=== PATIENT | female | born 1950 | race Caucasian/White ===

== ENCOUNTER 2020-11-02 20:31 | Observation (INO) | payer MEDICARE, SELFPAY ==
[2020-11-02 20:31] VITALS: BP 194/110; PULSE 104; RESP 18; TEMP 36.7; O2SAT 94; BMI 28.3
--- NOTE | 2020-11-02 20:36 | EKG12_ITS ---
Test Reason : CP Blood Pressure : / mmHG Vent. Rate : 102 BPM Atrial Rate : 102 BPM P-R Int : 174 ms QRS Dur : 098 ms QT Int : 370 ms P-R-T Axes : 028 023 116 degrees QTc Int : [address] & T wave abnormality, consider lateral ischemia Abnormal ECG Confirmed by ROSIE BROOKS, MAYRA ([id number]), news assignment editor XIAO HURT ([id number]) on 11/03/2020 1:04:59 PM Referred By: AVELINO Confirmed By:MAYRA VELEZ MD
--- NOTE | 2020-11-02 20:55 | RAD_ITS ---
INDICATION: chest pain EXAMINATION/TECHNIQUE: X-RAY - XR Chest 1 View COMPARISON: 05/17/2014. FINDINGS: The lungs are clear. Tortuous and calcified thoracic aorta. The heart is not enlarged. No pleural effusion or pneumothorax. No acute osseous abnormalities. RAD/Chest 1 View (Portable) IMPRESSION: No acute radiographic abnormalities. Electronically Signed: Bebeto Garcia MD at 21:14 EDT Tel , Service support ,
[2020-11-02 21:19] LABS: Absolute Lymphocyte Count 1.64 X10^3/uL (0.83-4.51); Absolute Neutrophil Count 2.4 X10^3/uL (2.0-7.7); Basophil# 0.02 X10^3/uL; Basophil% 0.4 % (0-1); Eosinophil# 0.53 X10^3/uL; Eosinophils% 10.5 % (0-5); Hematocrit 32.4 % (37-47); Hemoglobin 9.9 g/dL (12.0-15.0); Lymphocyte # 1.64 X10^3/ul (0.83-4.51); Lymphocyte % 32.6 % (19-41); Mean Corp Hgb Conc 30.6 g/dL (32-36); Mean Corpuscular Hgb 26.8 pg (27.0-32.0); Mean Corpuscular Volume 87.6 fL (81-99); Mean Platelet Vol. 12.6 fl (6.2-12.0); Monocyte# 0.48 X10^3/uL; Monocyte% 9.5 % (0-10); NRBC Flagged by Analyzer 0 % (0-5); Neutrophil # 2.35 X10^3/uL (2.7-7.7); Neutrophil % 46.8 % (47-70); Platelet Count 213 K/mm3 (150-450); RBC Distribution Width CV 17.2 % (11.6-14.6); RBC Distribution Width SD 55.7 fl (35.1-43.9)
[2020-11-02 21:23] VITALS: O2SAT 99
[2020-11-02] MEDS: Aspirin 81 MG TAB.CHEW 324 MG PO (21:29)
[2020-11-02] MEDS: Ondansetron 4 MG/2 ML Vial IV (21:30)
[2020-11-02] MEDS: Morphine 4 MG/ML Syringe 2 MG IV (21:31)
[2020-11-02 21:34] LABS: Anion Gap 6 (5-15); BUN 26 mg/dL (7-18); BUN/Creat Ratio 23.6 RATIO (10-20); Calcium,Total 8.5 mg/dL (8.5-10.1); Chloride 108 mmol/L (98-107); EST Glomerular Filtration Rate 52 mL/min (>60); Est Glom Filt Rate - Afr Amer 63 mL/min (>60); Estimated Creatinine Clearance 33.21 ml/min; Glucose 119 mg/dL (74-106); Potassium 3.9 mmol/L (3.5-5.1); Sodium Level 140 mmol/L (136-145); Troponin-I HS 20.1 pg/mL (3.0-53.7)
[2020-11-02 21:47] VITALS: BP 112/55; PULSE 84; RESP 17; O2SAT 97
[2020-11-02 22:12] VITALS: BP 117/61; PULSE 83; RESP 20; O2SAT 98
[2020-11-02] MEDS: Morphine 4 MG/ML Syringe IV (22:43)
[2020-11-02 23:14] VITALS: BP 135/61; PULSE 63; RESP 18; O2SAT 100
--- NOTE | 2020-11-02 23:15 | EDS_ITS ---
HPI History of Present Illness Chief Complaint: Chest Pain Informant: patient Onset/Context/Timing Onset: Month(s) (Worse today) Activity at onset: gradual Quality: Positive for Heaviness and Pressure Current Severity: Severe Maximum Severity: Severe Worsened By: Nothing Associated Symptoms: Positive for Nausea and - (Dizziness) Narrative Narrative: Patient present secondary to chest pain. Symptoms have been ongoing for the past couple months intermittently. Today was worse. She does report shortness of breath with radiation of pain down her left arm. She gets nauseated and dizzy as well. Patient denies known cardiac history but does have risk factors including hypertension, high cholesterol. [facility] Medical History GERD (gastroesophageal reflux disease) History of back pain HLD (hyperlipidemia) HTN (hypertension) Pinched vertebral nerve Scoliosis Home Medications carisoprodol 350 mg PO BID 11/02/20 [History Last Taken Unknown] chlorthalidone 25 mg PO DAILY 11/02/20 [History Last Taken Unknown] labetalol 100 mg PO BID 11/02/20 [History Last Taken Unknown] pantoprazole 40 mg PO DAILY 11/02/20 [History Last Taken Unknown] pravastatin 80 mg PO DAILY 11/02/20 [History Last Taken Unknown] tramadol 50 mg PO TID PRN 11/02/20 [History Last Taken Unknown] valsartan 320 mg PO DAILY 11/02/20 [History Last Taken Unknown] Allergy/AdvReac Type Severity Reaction Status Date / Time Penicillins Allergy Unknown Verified 11/02/20 20:35 Sulfa (Sulfonamide Allergy Rash Verified 11/02/20 20:35 Antibiotics) Surgical History History of cholecystectomy History of kidney removal Social History Smoking Status: Never smoker ROS ROS ED Constitutional Constitutional ED: Denies chills or fever(s) Eyes Eyes: Denies change in vision ENT ENT ED: Denies sore throat Cardiovascular Cardiovascular: Reports chest pain Respiratory/Chest Respiratory/Chest: Reports dyspnea; Denies cough Gastrointestinal Gastrointestinal: Reports nausea; Denies abdominal pain, diarrhea or vomiting Genitourinary Genitourinary ED: Denies dysuria Integumentary Denies rash Neurologic Neurologic: Denies headache(s) or weakness Psychiatric Psychiatric: Denies anxiety or depression Endocrine Endocrinology: Denies polydipsia or polyuria Allergic/Immunologic Allergic/Immunologic ED: Denies urticaria EXAM Physical Exam Const Vital Signs: 11/02/20 20:31 11/02/20 21:03 11/02/20 21:11 Temperature 98.1 F Temperature Source Temporal Pulse Rate 104 H Respiratory Rate 18 Respiratory Effort Short of Breath Respiratory Pattern Tachypnea Blood Pressure 194/110 H Blood Pressure Mean 138 Pulse Ox 94 Oxygen Delivery Method Room Air Room Air Oxygen Flow Rate (L/min) 2 11/02/20 21:23 11/02/20 21:47 11/02/20 22:12 Temperature Temperature Source Pulse Rate 84 83 Respiratory Rate 17 20 H Respiratory Effort Respiratory Pattern Blood Pressure 112/55 L 117/61 Blood Pressure Mean 74 79 Pulse Ox 99 97 98 Oxygen Delivery Method Nasal Cannula Nasal Cannula Nasal Cannula Oxygen Flow Rate (L/min) 2 2 11/02/20 23:14 Temperature Temperature Source Pulse Rate 63 Respiratory Rate 18 Respiratory Effort Respiratory Pattern Blood Pressure 135/61 H Blood Pressure Mean 85 Pulse Ox 100 Oxygen Delivery Method Room Air Oxygen Flow Rate (L/min) Positive well nourished and well developed General Appearance ED: well developed and other Appears uncomfortable. HEENT Reports normocephalic and head/scalp atraumatic Eyes PERRL and EOMs intact bilaterally Neck supple Chest Wall inspection of chest normal Chest Narrative: Mild tenderness with palpation of the chest, but patient states this does not recreate the pain that she is feeling. Resp normal respiratory effort and clear to auscultation bilaterally Cardio regular rate and regular rhythm GI normal to inspection, nondistended, normoactive bowel sounds Palpation: soft Extremity normal to inspection General Extremety ED: Negative for edema General Extremity: Negative for edema Neuro oriented x3 and no sensory deficits noted Sensorium / Orientation: alert Motor Exam: strength 5/5 throughout Psych mental status grossly normal Skin no rashes or lesions noted Heart Score History: Highly Suspicious ECG: Nonspecific Repolarization Age: >/= 65 years Risk Factors: 1 or 2 Risk Factors Troponin: </= Normal Limit Score: 6 MDM MDM MDM Narrative Medical decision making narrative: Patient was given aspirin on arrival. She was given morphine for pain. Labs, EKG, chest x-ray obtained. Lab Data Attestation: I reviewed the patient's lab results. Labs: Laboratory Results - last 24 hr 11/02/20 11/02/20 21:02 21:02 WBC 5.0 RBC 3.70 L Hgb 9.9 L Hct 32.4 L MCV 87.6 MCH 26.8 L MCHC 30.6 L RDW Std Deviation 55.7 H RDW Coeff of Douglas 17.2 H Plt Count 213 MPV 12.6 H Immature Gran % (Auto) 0.200 Neut % (Auto) 46.8 L Lymph % (Auto) 32.6 [place] % (Auto) 9.5 Eos % (Auto) 10.5 H Baso % (Auto) 0.4 Absolute Neuts (auto) 2.4 Absolute Lymphs (auto) 1.64 Nucleated RBC % 0 Sodium 140 Potassium 3.9 Chloride 108 H Carbon Dioxide 26.0 Anion Gap 6 BUN 26 H Creatinine 1.10 H Estim Creat Clear Calc 33.21 Est GFR (MDRD) Af Amer 63 Est GFR (MDRD) Non-Af 52 L BUN/Creatinine Ratio 23.6 H Glucose 119 H Calcium 8.5 Troponin I High Sens 20.1 Radiography Chest X-Ray - ED: 1 View, Read by ED Physician and Chronic Changes Diagnostic Testing: Radiology Impression Chest X-Ray 11/02/20 20:55 IMPRESSION: No acute radiographic abnormalities. Electronically Signed: Bebeto Garcia MD at 21:14 EDT Tel , Service support , EKG Initial EKG: Attestation: I personally reviewed and interpreted this EKG as follows: Interpretation: Sinus Tachycardia (Sinus tach at 102. Mild ST depression in the lateral leads.) Treatment and Re-Evaluation Comments:: Patient was given 2 doses of morphine for pain. On repeat evaluation she does report improvement but not complete resolution of her symptoms. Patient does have risk factors and a concerning story. In spite of the negative initial troponin I do feel she should be observed for cycling of enzymes and possible stress test. I will speak with the hospitalist. Discharge Plan Triage Chief Complaint: Chest Pain ED Provider: Peggy Grimes Dx/Rx/DC Orders Clinical Impression: Chest pain Prescriptions: No Action carisoprodol 350 mg tablet 350 mg PO BID RF: 0 pravastatin 40 mg Tablet 80 mg PO DAILY RF: 0 chlorthalidone 25 mg Tablet 25 mg PO DAILY RF: 0 tramadol 50 mg tablet 50 mg PO TID PRN (Reason: Pain) RF: 0 pantoprazole 40 mg Tablet,Delayed Release (Dr/Ec) 40 mg PO DAILY RF: 0 valsartan 320 mg Tablet 320 mg PO DAILY RF: 0 labetalol 100 mg Tablet 100 mg PO BID RF: 0 Disposition Disposition: Acute Care Hospital [facility]
--- NOTE | 2020-11-02 23:37 | PCM.HP.STD ---
HPI - General General Date of Admission: 11/02/20 Date of Service: 11/02/20 Chief Complaint: Chest pain HPI Narrative The patient is a 70 y/o F w/ PMHx: HTN, HLD, Chronic pain syndrome with chronic pinched vertebral nerve with scoliosis, Chronic normocytic anemia, GERD who presents to the [facility] ED on 11/02/20 with history of onset chest pain, midsternal, described as a heaviness and a pressure with radiation to the left upper extremity with associated nauseous and dizziness prompting eventual ED presentation. She does report this has been intermittently going on over the last several months but does not necessarily correlate with any increased activity. Patient does report concurrent dyspnea with these episodes. She notes that the pain when it does occur is rated approximately 7 out of 10 in severity. She currently notes the pain is resolving but her chest is still sore and is somewhat reproducible during ED evaluation. Work-up in the ED included T 98.1, heart rate initially 104 with repeat 83, BP initially 194/110 with repeat 117/61, respiratory rate 20, 98% on 2 L nasal cannula, CBC with WC 5.0, hemoglobin 9.9, MCV 87.6, platelet 213 without marked shift, BMP with chloride 108, BUN/creatinine 26/1.10, glucose 119, troponin 20.1, chest x-ray with no acute cardiopulmonary findings, EKG with tachycardia with mild ST depression in the lateral leads. In the ED patient ministered aspirin 324 mg p.o. x1, morphine 2 mg IV x1 as well as Zofran. [facility] Medical History (Updated 11/03/20 @ 00:[address] Mandi Nguyen MD) GERD (gastroesophageal reflux disease) History of back pain HLD (hyperlipidemia) HTN (hypertension) Pinched vertebral nerve Scoliosis Home Medications carisoprodol 350 mg PO BID 11/02/20 [History Last Taken Unknown] chlorthalidone 25 mg PO DAILY 11/02/20 [History Last Taken Unknown] labetalol 100 mg PO BID 11/02/20 [History Last Taken Unknown] pantoprazole 40 mg PO DAILY 11/02/20 [History Last Taken Unknown] pravastatin 80 mg PO DAILY 11/02/20 [History Last Taken Unknown] tramadol 50 mg PO TID PRN 11/02/20 [History Last Taken Unknown] valsartan 320 mg PO DAILY 11/02/20 [History Last Taken Unknown] Allergy/AdvReac Type Severity Reaction Status Date / Time Penicillins Allergy Unknown Verified 11/02/20 20:35 Sulfa (Sulfonamide Allergy Rash Verified 11/02/20 20:35 Antibiotics) Family History (Updated 11/03/20 @ 00:[address] Mandi Nguyen MD) Mother Alcoholism other (Patient denies any marked paternal family hx including HD, DM, CA. She notes no other hx in her mother aside alcoholism.) Surgical History (Updated 11/03/20 @ 00:[address] Mandi Nguyen MD) History of cholecystectomy S/P appendectomy Social History (Updated 11/03/20 @ 00:[address] Mandi Nguyen MD) household members: spouse Smoking Status: Never smoker alcohol intake: never substance use type: does not use ROS ROS Narrative Admission Review of Systems: CONSTITUTIONAL: No weight loss, fever, chills, + weakness or fatigue. HEENT: Eyes: No visual loss, blurred vision, double vision or yellow sclerae. Ears, Nose, Throat: No hearing loss, sneezing, congestion, runny nose or sore throat. SKIN: No rash or itching, lesions, wounds. CARDIOVASCULAR: + chest pain, chest pressure or chest discomfort, No palpitations, edema, orthopnea, syncopal events. RESPIRATORY: + shortness of breath, No cough or sputum, wheezing, hemoptysis. GASTROINTESTINAL: No anorexia, nausea, vomiting or diarrhea, abdominal pain, melena, BRBPR. GENITOURINARY: No dysuria, frequency, urgency or retention. NEUROLOGICAL: No headache, dizziness, syncope, paralysis, ataxia, numbness or tingling in the extremities, focal weakness, change in bowel or bladder control, seizure. MUSCULOSKELETAL: + muscle, back pain, joint pain or stiffness. HEMATOLOGIC: + anemia, bleeding or bruising. LYMPHATICS: No enlarged nodes. No history of splenectomy. PSYCHIATRIC: No history of depression or anxiety. ENDOCRINOLOGIC: No reports of sweating, cold or heat intolerance. No polyuria or polydipsia. ALLERGIES: No history of asthma, hives, eczema or rhinitis. Vital Signs Vital Signs Vital Signs: 11/02/20 20:31 11/02/20 21:03 11/02/20 21:11 Temperature 98.1 F Temperature Source Temporal Pulse Rate 104 H Respiratory Rate 18 Respiratory Effort Short of Breath Respiratory Pattern Tachypnea Blood Pressure 194/110 H Blood Pressure Mean 138 Pulse Ox 94 Oxygen Delivery Method Room Air Room Air Oxygen Flow Rate (L/min) 2 11/02/20 21:23 11/02/20 21:47 11/02/20 22:12 Temperature Temperature Source Pulse Rate 84 83 Respiratory Rate 17 20 H Respiratory Effort Respiratory Pattern Blood Pressure 112/55 L 117/61 Blood Pressure Mean 74 79 Pulse Ox 99 97 98 Oxygen Delivery Method Nasal Cannula Nasal Cannula Nasal Cannula Oxygen Flow Rate (L/min) 2 2 11/02/20 23:14 Temperature Temperature Source Pulse Rate 63 Respiratory Rate 18 Respiratory Effort Respiratory Pattern Blood Pressure 135/61 H Blood Pressure Mean 85 Pulse Ox 100 Oxygen Delivery Method Room Air Oxygen Flow Rate (L/min) Weight Weight: 145 lb Body Mass Index (BMI) 28.3 Physical Exam Narrative Physical Examination: General: Awake, alert, oriented x 3 and cooperative, seated upright in the ED bed in no apparent distress, notes chest discomfort is improving, complaining of back pain. Skin: Normal color, normal turgor, no icterus, no cyanosis. HEENT: AT/NC, EOMI, PERRLA, MMM, no carotid bruits or JVD noted. Lungs: Clear to auscultation bilaterally, moderate effort, no rales, ronchi or wheezing. Heart: Regular rate and rhythm; no gallop, rub audible. Abdomen: Soft, NTTP, ND, normal BS, no HSM. Extremities: No cyanosis, clubbing, or edema. Neurological: Patient awake, alert, oriented as noted, cognitive function intact; pupils equally reactive to light and accommodation, cranial nerves II-XII grossly normal, moving all 4 extremities, no focal deficits, strength mildly moderately global decrease secondary to acute presentation and underlying comorbidities with chronic back pain. Psychiatric: Affect appears fatigued otherwise normal, no acute evidence of depressive or anxiety feelings. Results Lab / Micro Data Result Diagrams: 11/02/20 21:02 11/02/20 21:02 Labs: Laboratory Results - last 24 hr 11/02/20 11/02/20 21:02 21:02 WBC 5.0 RBC 3.70 L Hgb 9.9 L Hct 32.4 L MCV 87.6 MCH 26.8 L MCHC 30.6 L RDW Std Deviation 55.7 H RDW Coeff of [place] 17.2 H Plt Count 213 MPV 12.6 H Immature Gran % (Auto) 0.200 Neut % (Auto) 46.8 L Lymph % (Auto) 32.6 [place] % (Auto) 9.5 Eos % (Auto) 10.5 H Baso % (Auto) 0.4 Absolute Neuts (auto) 2.4 Absolute Lymphs (auto) 1.64 Nucleated RBC % 0 Sodium 140 Potassium 3.9 Chloride 108 H Carbon Dioxide 26.0 Anion Gap 6 BUN 26 H Creatinine 1.10 H Estim Creat Clear Calc 33.21 Est GFR (MDRD) Af Amer 63 Est GFR (MDRD) Non-Af 52 L BUN/Creatinine Ratio 23.6 H Glucose 119 H Calcium 8.5 Troponin I High Sens 20.1 Radiology Impression Chest X-Ray 11/02/20 20:55 IMPRESSION: No acute radiographic abnormalities. Electronically Signed: Bebeto Garcia MD at 21:14 EDT Tel , Service support , Assessment & Plan Assessment/Plan (1) Chest pain: QUALIFIERS: Chest pain type: unspecified Qualified Code(s): R07.9 - Chest pain, unspecified PLAN: The patient is a 70 y/o F w/ PMHx: HTN, HLD, Chronic pain syndrome with chronic pinched vertebral nerve with scoliosis, Chronic normocytic anemia, GERD who presents to the [facility] ED on 11/02/20 with history of onset chest pain, midsternal, described as a heaviness and a pressure with radiation to the left upper extremity with associated nauseous and dizziness prompting eventual ED presentation. She does report this has been intermittently going on over the last several months, 1. Chest Pain: EKG in ED sinus tachycardia with ST depression in lateral leads, CXR w/ no acute cardiopulmonary findings, initial trop high-sensitivity 20.1. Will admit to PCU, place on a monitored bed to assure no acute myocardial infarction with serial cardiac enzymes and EKGs. Magnesium level requested. FLP in AM. If repeat serial enzymes and EKGs with no concerning findings will pursue a.m. cardiac stress testing. ASA, NG, morphine. 2. Hypertension: Continue home regimen including valsartan, labetalol, chlorthalidone with hold parameters as needed, PRN hydralazine. 3. Hyperlipidemia: Continue home statin regimen. AM FLP. 4. Chronic pain syndrome: Patient with chronic pinched vertebral nerve with scoliosis with chronic back pain, we will continue patient carisoprodol regimen. Encourage frequent positional changes. 5. GERD: We will continue patient on PPI. 6. Chronic anemia, normocytic: Admission hemoglobin 9.9, last noted 05/17/2014 11.7, MCV mid range, will obtain iron panel, ferritin, guaiac, vitamin B12 and folic acid. 7. DVT prophylaxis: SCDs, Lovenox. Charges/Coding Visit Charges OBSV E&M: [id number] Initial observation care L3
[2020-11-03] VITALS (24 sets, daily range): BP systolic 100–189; BP diastolic 42–93; PULSE 79–92; RESP 17–21; TEMP 36.4–37; O2SAT 90–99; BMI 29.5
--- NOTE | 2020-11-03 00:38 | EKG12_ITS ---
Test Reason : CP ADMISSION Blood Pressure : / mmHG Vent. Rate : 082 BPM Atrial Rate : 082 BPM P-R Int : 188 ms QRS Dur : 102 ms QT Int : 432 ms P-R-T Axes : 016 042 095 degrees QTc Int : 504 ms Sinus rhythm with occasional Premature ventricular complexes ST & T wave abnormality, consider lateral ischemia Prolonged QT Abnormal ECG Confirmed by RENO BROOKS, PALOMA ([id number]), continuity editor EDUARD TURNER ([id number]) on 11/08/2020 2:05:36 PM Referred By: SPEEDY Confirmed By:PALOMA BOJORQUEZ MD
[2020-11-03] MEDS: 0.9% Normal Saline 1,000 ML 100 ML IV ×2 (00:59→13:00)
[2020-11-03 01:35] LABS: Troponin-I HS 37.1 pg/mL (3.0-53.7)
[2020-11-03] MEDS: Nitroglycerin (INPATIENT USE) 0.4 MG TAB.SUBL SL ×3 (03:45→03:56)
--- NOTE | 2020-11-03 03:54 | NURSING ---
c/o chesy pain that radiates to back and left arm. nitro series given
[2020-11-03] MEDS: oxyCODONE 5 MG Tablet PO ×3 (03:59→16:05)
[2020-11-03 05:04] LABS: Troponin-I HS 40.8 pg/mL (3.0-53.7)
[2020-11-03] MEDS: Losartan Potassium 100 MG Tablet PO (06:26)
[2020-11-03] MEDS: Aspirin E.C. 81 MG Tablet PO (06:26)
[2020-11-03 08:06] LABS: Absolute Lymphocyte Count 1.22 X10^3/uL (0.83-4.51); Basophil# 0.02 X10^3/uL; Basophil% 0.4 % (0-1); Eosinophil# 0.46 X10^3/uL; Eosinophils% 8.8 % (0-5); Hematocrit 28.6 % (37-47); Hemoglobin 8.6 g/dL (12.0-15.0); Lymphocyte # 1.22 X10^3/ul (0.83-4.51); Lymphocyte % 23.5 % (19-41); Mean Corp Hgb Conc 30.1 g/dL (32-36); Mean Corpuscular Hgb 26.6 pg (27.0-32.0); Mean Corpuscular Volume 88.5 fL (81-99); Mean Platelet Vol. 12.5 fl (6.2-12.0); Monocyte# 0.48 X10^3/uL; Monocyte% 9.2 % (0-10); NRBC Flagged by Analyzer 0 % (0-5); Neutrophil # 3.01 X10^3/uL (2.7-7.7); Neutrophil % 57.9 % (47-70); Platelet Count 187 K/mm3 (150-450); RBC Distribution Width CV 17.7 % (11.6-14.6); RBC Distribution Width SD 57.7 fl (35.1-43.9); Red Blood Count 3.23 M/mm3 (4.2-5.4); White Blood Count 5.2 K/mm3 (4.4-11.0)
[2020-11-03 08:43] LABS: ALB/GLOB Ratio 1.4 RATIO (0.9-2.4); AST(SGOT) 19 U/L (15-37); Alanine Aminotransfer ALT/SGPT 16 U/L (13-56); Alkaline Phosphatase 97 U/L (45-117); Anion Gap 2 (5-15); BUN 20 mg/dL (7-18); BUN/Creat Ratio 23.5 RATIO (10-20); Calcium,Total 7.7 mg/dL (8.5-10.1); Chloride 112 mmol/L (98-107); Cholesterol 124 mg/dL (200); Creatinine, Serum 0.85 mg/dL (0.55-1.02); EST Glomerular Filtration Rate 70 mL/min (>60); Est Glom Filt Rate - Afr Amer 84 mL/min (>60); Estimated Creatinine Clearance 42.97 ml/min; Ferritin 6 ng/mL (8-252); Globulin 2.1 g/dL (2.2-4.2); Glucose 131 mg/dL (74-106); High Density Lipoprotein 45 mg/dL; Iron 36 ug/dL (50-170); Iron Binding Capacity,Total 313 ug/dL (250-450); PERCENT IRON SATURATION 11.5 % (15.0-55.0); Potassium 4.5 mmol/L (3.5-5.1); Protein, Total 5.1 g/dL (6.4-8.2); Sodium Level 141 mmol/L (136-145); Triglycerides 229 mg/dL; Troponin-I HS 38.8 pg/mL (3.0-53.7); Very Low Density Lipoprotein 46 mg/dL (5-40)
[2020-11-03 09:32] LABS: Vitamin B12 188 pg/mL (211-911)
[2020-11-03] MEDS: Labetalol 100 MG Tablet PO (11:02)
[2020-11-03] MEDS: 0.9% Saline Lock 10 ML Syringe IV ×2 (11:02→19:43)
[2020-11-03] MEDS: Chlorthalidone 50 MG Tablet 25 MG PO (11:02)
[2020-11-03] MEDS: Pantoprazole Sodium 40 MG Tablet PO (11:02)
--- NOTE | 2020-11-03 12:46 | STRESSREP ---
Stress Test Report Pharmacologic myocardial perfusion stress test. Indication; 70-year-old patient with history of CAD has a prior cardiac catheterization 2009 showed diffuse nonobstructive RCA as well as mild luminal milligrams in the LAD This presentation with symptoms of chest pain and she had some change in the EKG in the inferolateral leads with a clinical diagnosis of unstable angina Series of high sensitive troponins have been negative. Stress protocol: Resting EKG demonstrates. Normal sinus rhythm. 0.4 mg of regadenoson was infused per usual protocol followed by rapid intravenous saline flush injection continuous EKG monitoring was performed. The maximum heart rate attained was 107 bpm which was 72% of maximum predicted heart . Stress EKG showed, ST depression noted in the inferolateral lead at rest, significant ST?T depression in the inferolateral leads, significant change from the resting EKG, with maximum heart rate of 107bpm. Arrhythmia: No arrhythmia demonstrated Symptoms: Patient had no symptoms of chest pain Blood pressure at rest 160/80 mmHg blood pressure at the end of stress: 160/80 mmHg Myocardial perfusion protocol. [12 mCi ]of Technetium 99m Sestamibi was injected at rest. [ 0.4 mg ]of Regadenoson was infused per usual protocol peak infusion[33.8 mCi ]of Technetium 99m sestamibi was injected. Stress images were obtained stress and rest images were reconstructed and compared in the short axis vertical and horizontal long axis. Gated images were also obtained Perfusion SPECT analysis: Review of the images demonstrate, attenuation artifact in the inferior region with diminished lateral tracer uptake Consistent with small area of inferior?lateral myocardial ischemia. Gated SPECT analysis: The gated ejection fraction is 61% wall motion showed normal LV systolic function. Conclusion: Abnormal Lexiscan sestamibi myocardial perfusion study as described with evidence of small area of inferolateral myocardial ischemia with preserved LV systolic function. Monica Conrad MD,FACC,[facility]
--- NOTE | 2020-11-03 13:19 | NURSING ---
Report called to Jennifer FRY in [employer] laboratory technician
--- NOTE | 2020-11-03 14:03 | CASEMGMT ---
According to the [facility] website, the following are in-network tertiary facilities: [facility], [place], [facility], [facility], [facility], [facility], and . Shanna FRY CM
--- NOTE | 2020-11-03 15:10 | PRO.PCM_ITS ---
Procedure Report Date of Procedure: 11/03/20 Procedure performed; 1. Moderate sedation 2. Left heart catheterization 3. Selective coronary angiography 4. Measurement of LVEDP/left ventriculogram 5. Placement of Perclose to close the right common femoral artery arteriotomy site 6. Placement of TR band to close the right radial artery arteriotomy site. Consent; Risk and benefit of the procedure explained in detail to the patient she elected to proceed informed consent obtained. Preprocedure diagnosis; 70-year-old patient with known history of CAD, has a cardiac catheterization here at [facility] in 2008 which she had nonobstructive atherosclerosis of the LAD as well as the RCA This presentation she presented with symptoms of chest pain described as retrosternal typical of angina has been infrequent Based on her clinical presentation she was evaluated here in the hospital with EKG as well as series of high sensitive troponin which were negative and subsequently she underwent further evaluation with Lexiscan sestamibi myocardial perfusion study which is abnormal clearly showed evidence of inferolateral ST depression with Lexiscan and evidence of inferolateral reversible myocardial ischemia with preserved LV systolic function. Based on this finding she was offered cardiac catheterization to delineate coronary anatomy and to discuss further plan. Diagnostic catheter used; 1. 5 Australian sheath in the right common femoral artery 2. 5 Australian JL 4 catheter 3. 5 Australian JR4 catheter 4. 5 Australian pigtail catheter. Procedure in detail; Patient brought to the [facility] in fasting state, right groin right radial artery area prepped and draped in the usual sterile fashion. We will proceed with the 5 Australian sheath placed in the right radial artery patient was given lidocaine infiltrated in the right groin as well she was given Versed and fentanyl for moderate anesthesia The new proceed with the diagnostic catheter engaged left coronary artery without difficulty following this multiple views of the left carotid system obtained including VENEZUELAN, ESTEBAN cranial and caudal views. Following this catheter exchange) JR4 advanced ascending aorta cannulated the right coronary ostium multiple views of the record system were obtained. Following this catheter exchanged for 5 Australian pigtail catheter placed in the right ventricle the ventricular end-diastolic pressure measured as well as the ventricle gram was obtained following this all angiographic views were studied Findings hemodynamic LV systolic function was normal Ejection fraction in the range of around 60 to 65% There is no systolic gradient across aortic valve. There is no mitral regurgitation noted LVEDP measuring around 18 mmHg Coronary angiography findings; Left main calcified with extension of calcification into the LAD and the ramus intermedius Left main is normal angiographically trifurcating into LAD, ramus intermedius and the left circumflex. The left anterior descending artery had a focal stenosis in the midportion at the site of the second diagonal/septal branch, which is around 50-60% focal stenosis. With a MIKO-3 flow in the LAD. Left circumflex large vessel with ostial left circumflex subtotal 99%. OM1 branch is large with no significant atherosclerosis. RCA large ostial RCA, with no significant atherosclerosis at the ostium, proximal RCA had 80% stenosis focal lesion Mid RCA had diffuse nonobstructive atherosclerosis of around 20-30%, bifurcation of the posterolateral and RPDA had around 30 to 40% stenosis. Conclusion and recommendations; This patient has multivessel CAD with very good distal targets My colleague Dr. Costello, discussed with the surgeon at [facility] and patient will be transferred to evaluate for coronary artery bypass surgery. Monica Conrad MD,FACC,[facility]. This patient has significant three-vessel disease with high-grade lesion subtotal critical ostial LAD, proximal ramus intermedius around 50% sick
--- NOTE | 2020-11-03 17:14 | NURSING ---
Called theodore FRY at [facility] for report
--- NOTE | 2020-11-03 19:33 | DS.PCM_ITS ---
Providers Date of Admission: 11/02/20 Date of Discharge: 11/03/20 Primary Care Physician: Dr. Elroy Wellington MD Reason For Visit: CHEST PAIN Diagnosis Discharge Diagnosis (1) Chest pain: Status: Acute Code(s): R07.9 - Chest pain, unspecified Qualifiers: Chest pain type: unspecified Qualified Code(s): R07.9 - Chest pain, unspecified Plan: Final diagnosis #1 unstable angina #2 multivessel occlusive coronary artery disease #3 essential hypertension #4 iron deficiency anemia-etiology unclear #5 melena Medications at Discharge Home Medications carisoprodol 350 mg PO BID 11/02/20 chlorthalidone 25 mg PO DAILY 11/02/20 labetalol 100 mg PO BID 11/02/20 pantoprazole 40 mg PO DAILY 11/02/20 pravastatin 80 mg PO DAILY 11/02/20 tramadol 50 mg PO TID PRN 11/02/20 valsartan 320 mg PO DAILY 11/02/20 aspirin 81 mg PO DAILY@0800 #1 tab 11/03/20 enoxaparin 40 mg SUBCUT DAILY #1 ml 11/03/20 nitroglycerin 0.4 mg SUBLINGUAL Q5M PRN #1 tab 11/03/20 Hospital Course Operations None Procedures Cardiac catheterization and Nuclear stress test Summary of Care Provided Minutes Spent on Discharge: 31 Hospital Course: This 70-year-old white female was seen in the emergency room at [facility] with a chief complaint of precordial chest pain. This chest pain has been intermittent over the last couple of months. Patient also complained of shortness of breath with radiation pain down her left arm. Work-up in the emergency room included an EKG which showed no evidence of ischemic changes, patient's hemoglobin was low at 9.9, white blood cell count was normal, patient's creatinine was slightly elevated at 1.1, patient's tropon in was within normal limits. Patient's chest x-ray showed no evidence of acute disease. Patient was placed in observation status on PCU, cardiac enzymes were cycled and these remain normal. Patient underwent a nuclear stress test that indicated reversible ischemia, she then was seen by cardiology who performed a cardiac catheterization which showed multivessel occlusive coronary artery disease. It was felt that the patient should be transferred to an acute care hospital for further care and bypass grafting. Patient's stool was Hemoccult positive. On 11/03/2020, patient was seen and examined: On examination she appeared in good health and spirits, she does not appear to be in any distress. Vital signs as documented. Skin warm and dry and without overt rashes. Neck without JVD, thyroid appears normal, trachea is midline, neck is supple. Lungs clear, normal air movement was noted. Heart exam notable for regular rhythm, normal sounds and absence of murmurs, rubs or gallops. Abdomen unremarkable and without evidence of organomegaly, masses, or abdominal aortic enlargement, bowel sounds are present in all 4 quadrants, no abdominal tenderness was noted. Extremities nonedematous, no cyanosis was noted, no clubbing was noted. Neuro: Cranial nerves II through XII are grossly intact, no focal motor deficits were noted, sensation to light touch and pinprick is intact, motor exam 5/5 throughout. Psych: Patient is alert and oriented x3, she does not appear anxious or depressed, she does not appear agitated. I talked at length with the patient and her about her medical care prior to transfer to an acute care hospital for further care. Patient was stable for transfer on 11/03/2020. Weight / BMI Weight Weight: 68.7 kg Body Mass Index (BMI) 29.5 ABG / Lab / Microbiology Data Result Diagrams: 11/03/20 07:45 11/03/20 07:45 Laboratory: Laboratory Results - last 24 hr 11/02/20 11/02/20 11/02/20 21:02 21:02 21:02 WBC 5.0 RBC 3.70 L Hgb 9.9 L Hct 32.4 L MCV 87.6 MCH 26.8 L MCHC 30.6 L RDW Std Deviation 55.7 H RDW Coeff of Douglas 17.2 H Plt Count 213 MPV 12.6 H Immature Gran % (Auto) 0.200 Neut % (Auto) 46.8 L Lymph % (Auto) 32.6 [place] % (Auto) 9.5 Eos % (Auto) 10.5 H Baso % (Auto) 0.4 Absolute Neuts (auto) 2.4 Absolute Lymphs (auto) 1.64 Nucleated RBC % 0 Sodium 140 Potassium 3.9 Chloride 108 H Carbon Dioxide 26.0 Anion Gap 6 BUN 26 H Creatinine 1.10 H Estim Creat Clear Calc 33.21 Est GFR (MDRD) Af Amer 63 Est GFR (MDRD) Non-Af 52 L BUN/Creatinine Ratio 23.6 H Glucose 119 H Calcium 8.5 Magnesium 2.0 Iron TIBC Iron Saturation Ferritin Total Bilirubin AST ALT Alkaline Phosphatase Troponin I High Sens 20.1 Total Protein Albumin Globulin Albumin/Globulin Ratio Triglycerides Cholesterol LDL Cholesterol VLDL Cholesterol HDL Cholesterol Vitamin B12 Folate 11/03/20 11/03/20 11/03/20 01:12 03:40 07:45 WBC 5.2 RBC 3.23 L Hgb 8.6 L Hct 28.6 L MCV 88.5 MCH 26.6 L MCHC 30.1 L RDW Std Deviation 57.7 H RDW Coeff of Douglas 17.7 H Plt Count 187 MPV 12.5 H Immature Gran % (Auto) 0.200 Neut % (Auto) 57.9 Lymph % (Auto) 23.5 [place] % (Auto) 9.2 Eos % (Auto) 8.8 H Baso % (Auto) 0.4 Absolute Neuts (auto) 3.0 Absolute Lymphs (auto) 1.22 Nucleated RBC % 0 Sodium Potassium Chloride Carbon Dioxide Anion Gap BUN Creatinine Estim Creat Clear Calc Est GFR (MDRD) Af Amer Est GFR (MDRD) Non-Af BUN/Creatinine Ratio Glucose Calcium Magnesium Iron TIBC Iron Saturation Ferritin Total Bilirubin AST ALT Alkaline Phosphatase Troponin I High Sens 37.1 40.8 Total Protein Albumin Globulin Albumin/Globulin Ratio Triglycerides Cholesterol LDL Cholesterol VLDL Cholesterol HDL Cholesterol Vitamin B12 Folate 11/03/20 11/03/20 07:45 07:45 WBC RBC Hgb Hct MCV MCH MCHC RDW Std Deviation RDW Coeff of Douglas Plt Count MPV Immature Gran % (Auto) Neut % (Auto) Lymph % (Auto) [place] % (Auto) Eos % (Auto) Baso % (Auto) Absolute Neuts (auto) Absolute Lymphs (auto) Nucleated RBC % Sodium 141 Potassium 4.5 Chloride 112 H Carbon Dioxide 27.0 Anion Gap 2 L BUN 20 H Creatinine 0.85 Estim Creat Clear Calc 42.97 Est GFR (MDRD) Af Amer 84 Est GFR (MDRD) Non-Af 70 BUN/Creatinine Ratio 23.5 H Glucose 131 H Calcium 7.7 L Magnesium Iron 36 L TIBC 313 Iron Saturation 11.5 L Ferritin 6 L Total Bilirubin 0.20 AST 19 ALT 16 Alkaline Phosphatase 97 Troponin I High Sens 38.8 Total Protein 5.1 L Albumin 3.0 L Globulin 2.1 L Albumin/Globulin Ratio 1.4 Triglycerides 229 H Cholesterol 124 LDL Cholesterol 33 VLDL Cholesterol 46 H HDL Cholesterol 45 Vitamin B12 188 L Folate 10.70 Microbiology: Microbiology 11/03/20 11:07 Stool Occult Blood (BETTY) - Final Stool Occult Blood Positive Microbiology 11/03/20 11:07 Stool Stool Occult Blood (BETTY) - Final Occult Blood Positive Radiography Diagnostic Testing: Radiology Impression Chest X-Ray 11/02/20 20:55 IMPRESSION: No acute radiographic abnormalities. Electronically Signed: Bebeto Garcia MD at 21:14 EDT Tel , Service support , Meaningful Use Info Meaningful Use Diagnoses (Choose all that apply): None applicable Discharge Plan Admission Admit Date/Time: 11/02/20 23:43 Primary Reason for Your Visit: unstable angina Attending Provider: Ke Mccullough Primary Care Provider: Elroy Wellington Instructions Patient Instructions: ED Chest Pain, Noncardiac Discharge Orders/Prescriptions Prescriptions: New aspirin 81 mg Tablet,Delayed Release (Dr/Ec) 81 mg PO DAILY@0800 Qty: 1 RF: 0 nitroglycerin 0.4 mg Tablet, Sublingual 0.4 mg sublingual Q5M PRN (Reason: Cardiac/Chest Pain) Qty: 1 RF: 0 enoxaparin 40 mg/0.4 mL Syringe 40 mg subcut DAILY Qty: 1 RF: 0 Continued carisoprodol 350 mg tablet 350 mg PO BID RF: 0 pravastatin 40 mg Tablet 80 mg PO DAILY RF: 0 chlorthalidone 25 mg Tablet 25 mg PO DAILY RF: 0 tramadol 50 mg tablet 50 mg PO TID PRN (Reason: Pain) RF: 0 pantoprazole 40 mg Tablet,Delayed Release (Dr/Ec) 40 mg PO DAILY RF: 0 valsartan 320 mg Tablet 320 mg PO DAILY RF: 0 labetalol 100 mg Tablet 100 mg PO BID RF: 0 Referrals / Follow Up: Elroy Wellington MD [Primary Care Provider] - Disposition Disposition (needs filled in before D/C Order can be placed): Acute Care Hosp ital Charges/Coding Visit Charges OBSV E&M: 97518 Observation care discharge
[2020-11-03] MEDS: Morphine 2 MG/ML Syringe IV (19:43)
== END 2020-11-03 20:36 | disposition short-term general hospital (02) ==
LOC: ED 23:38 → PCU 23:54
PROVIDERS: Admitting Provider Family Medicine; Emergency Provider Emergency Medicine; PCP Family Medicine; Visit Provider Internal Medicine
DX: I25.110 Atherosclerotic heart disease of native coronary artery with unstable angina pectoris (principal); I10 Essential (primary) hypertension; D50.9 Iron deficiency anemia, unspecified; K92.1 Melena; K21.9 Gastro-esophageal reflux disease without esophagitis; E78.5 Hyperlipidemia, unspecified; M41.9 Scoliosis, unspecified; G89.4 Chronic pain syndrome; G58.8 Other specified mononeuropathies; Z79.899 Other long term (current) drug therapy; Z79.82 Long term (current) use of aspirin
CPT/HCPCS: 36415; 71045; 78452; 80048; 80053; 80061; 82274; 82607; 82728; 82746; 83540; 83550; 83735; 84484; 85025; 93005; 93017; 93458; 96361; 96374; 96375; 96376; 99152; 99153; 99218; 99251; 99285; A9500; J7030; Q9967; A4216; C1760; C1769; C1894; G0378; G0463; J2405; J2785

== ENCOUNTER 2020-12-15 13:36 | Observation (INO) | payer MEDICARE, SELFPAY ==
[2020-11-03 00:28] VITALS: BMI 29.5
[2020-12-15] VITALS (10 sets, daily range): BP systolic 142–175; BP diastolic 81–120; PULSE 80–110; RESP 20–35; TEMP 36.4–36.7; O2SAT 96–99; BMI 26.5; BMI 26.4
--- NOTE | 2020-12-15 14:01 | EKG12_ITS ---
Test Reason : SOB Blood Pressure : / mmHG Vent. Rate : 103 BPM Atrial Rate : 103 BPM P-R Int : 186 ms QRS Dur : 098 ms QT Int : 332 ms P-R-T Axes : 031 037 188 degrees QTc Int : [address] & T wave abnormality, consider inferolateral ischemia Abnormal ECG Confirmed by ROSIE BROOKS, MAYRA ([id number]), web editor XIAO HURT ([id number]) on 12/19/2020 9:46:52 AM Referred By: JUN/NIYA Confirmed By:MAYRA VELEZ MD
--- NOTE | 2020-12-15 14:17 | EX.ED.DYSGE1 ---
[facility] <Dr. Gato Velazco DO - Last Filed: 12/16/20 07:01> History of Present Illness Chief Complaint: Shortness of Breath Informant: patient Narrative Narrative: Patient is a 70-year-old female with a past medical history of CAD with bypass who presents to the emergency department for shortness of breath. She states that her blood pressures have been elevated over the past few days. Her shortness of breath initially started 3 days ago. She denies any chest pain associated with this. Tricia mild cough at her baseline but has not had any fever/chills. She denies any significant leg swelling or calf pain. Her surgery was 6 weeks ago. She denies any abdominal pain or nausea/vomiting. No change in moving bowels. No back pain. She denies a smoking history. [facility] <Dr. Gato Velazco DO - Last Filed: 12/16/20 07:01> [facility] Medical History GERD (gastroesophageal reflux disease) History of back pain HLD (hyperlipidemia) HTN (hypertension) Pinched vertebral nerve Scoliosis Home Medications chlorthalidone 25 mg PO DAILY 11/02/20 [History Last Taken 12/15/20] labetalol 200 mg PO BID 11/02/20 [History Last Taken 12/15/20 08:00] pantoprazole 40 mg PO DAILY 11/02/20 [History Last Taken 12/15/20] tramadol 100 mg PO TID PRN 11/02/20 [History Last Taken 12/15/20] aspirin 81 mg PO DAILY@0800 #1 tab 11/03/20 [Rx Last Taken 12/15/20] furosemide 40 mg PO DAILY PRN PRN 12/15/20 [History Last Taken Unknown] rosuvastatin 20 mg PO QHS 12/15/20 [History Last Taken 12/14/20] valsartan 320 mg PO DAILY 12/15/20 [History Last Taken 12/15/20] Allergy/AdvReac Type Severity Reaction Status Date / Time Penicillins Allergy Unknown Verified 12/15/20 13:37 Sulfa (Sulfonamide Allergy Rash Verified 12/15/20 13:37 Antibiotics) lorazepam [From Ativan] AdvReac I went Verified 12/15/20 18:36 crazy Family History (Updated 12/15/20 @ 18:05 by Rochelle Lugo NP-Gen) Mother Alcoholism Father Hypertension Brother Diabetes Sister Diabetes Surgical History History of cholecystectomy S/P appendectomy S/P CABG x 5 Social History household members: spouse Smoking Status: Never smoker alcohol intake: never substance use type: does not use ROS <Dr. Gato Velazco DO - Last Filed: 12/16/20 07:01> ROS ED Constitutional Constitutional ED: Denies chills or fever(s) Eyes Eyes: Denies change in vision ENT ENT ED: Denies epistaxis or rhinorrhea Cardiovascular Cardiovascular: Denies chest pain or palpitations Respiratory/Chest Respiratory/Chest: Reports dyspnea; Denies sputum Gastrointestinal Gastrointestinal: Denies abdominal pain, diarrhea, nausea or vomiting Genitourinary Genitourinary ED: Denies dysuria, hematuria or urinary frequency Musculoskeletal Musculoskeletal: Denies back pain or neck pain Integumentary Denies rash Neurologic Neurologic: Denies dizziness, headache(s) or weakness EXAM <Dr. aGto Velazco DO - Last Filed: 12/16/20 07:01> Physical Exam Const Vital Signs: 12/15/20 13:37 12/15/20 14:28 12/15/20 14:30 Temperature 97.5 F L Temperature Source Temporal Pulse Rate 106 H 106 H Respiratory Rate 24 H 34 H Respiratory Effort Short of Breath Respiratory Depth Deep Respiratory Pattern Tachypnea Blood Pressure 160/107 H 154/107 H Blood Pressure Mean 124 122 Pulse Ox 99 98 Oxygen Delivery Method Room Air Room Air Room Air 12/15/20 15:18 12/15/20 17:03 Temperature Temperature Source Pulse Rate 103 H 102 H Respiratory Rate 28 H 20 H Respiratory Effort Respiratory Depth Respiratory Pattern Blood Pressure 171/102 H 169/103 H Blood Pressure Mean 125 125 Pulse Ox 96 96 Oxygen Delivery Method Room Air Room Air Positive well nourished and well developed General Appearance ED: well developed and NAD HEENT Reports normocephalic and head/scalp atraumatic Eyes PERRL and EOMs intact bilaterally Neck supple Chest Wall inspection of chest normal Resp clear to auscultation bilaterally Resp Narrative: Mildly tachypneic Auscultation: Negative for rales, rhonchi or wheezes Cardio regular rhythm and no murmurs Rate: tachycardic GI normal to inspection, nondistended, normoactive bowel sounds and non-tender Palpation: soft; Negative for guarding or rebound tenderness present Extremity normal to inspection General Extremety ED: Negative for edema or tenderness General Extremity: Negative for edema Neuro Sensorium / Orientation: alert Motor Exam: strength 5/5 throughout Psych mental status grossly normal Skin no rashes or lesions noted <Dr. Peggy Grimes MD - Last Filed: 12/15/20 17:34> Physical Exam Const Vital Signs: 12/15/20 13:37 12/15/20 14:28 12/15/20 14:30 Temperature 97.5 F L Temperature Source Temporal Pulse Rate 106 H 106 H Respiratory Rate 24 H 34 H Respiratory Effort Short of Breath Respiratory Depth Deep Respiratory Pattern Tachypnea Blood Pressure 160/107 H 154/107 H Blood Pressure Mean 124 122 Pulse Ox 99 98 Oxygen Delivery Method Room Air Room Air Room Air 12/15/20 15:18 12/15/20 17:03 Temperature Temperature Source Pulse Rate 103 H 102 H Respiratory Rate 28 H 20 H Respiratory Effort Respiratory Depth Respiratory Pattern Blood Pressure 171/102 H 169/103 H Blood Pressure Mean 125 125 Pulse Ox 96 96 Oxygen Delivery Method Room Air Room Air MDM <Dr. Gato Velazco DO - Last Filed: 12/16/20 07:01> [facility] MDM Narrative Medical decision making narrative: Patient presents to the [facility] department for shortness of breath. She states that her blood pressure has been elevated at home up to the 170s systolic. She did have a recent decrease in her labetalol from 200-100 but this was prior to her CABG. On arrival to the [facility] department she is satting 99% on room air but is tachypneic and borderline tachycardic. Will check EKG, chest x-ray and basic lab work. Patient's lab work did not reveal any significant acute abnormality. Her troponin is within normal limits. BNP is only mildly elevated. On chest x-ray she has a right hemidiaphragm elevation which was not seen previously. This could be related to her previous surgery. Given the fact she remains very tachypneic and with a recent surgery CT angio is being performed to evaluate for pulmonary embolism. Patient otherwise has remained saturating well on room air. She is siged out due to end of shift pending CTA results. Disposition based on [facility]. Lab Data Labs: Laboratory Results - last 24 hr 12/15/20 12/15/20 12/15/20 14:25 14:25 14:25 WBC 8.2 RBC 4.68 Hgb 12.3 Hct 38.9 MCV 83.1 MCH 26.3 L MCHC 31.6 L RDW Std Deviation 46.5 H RDW Coeff of Douglas 15.5 H Plt Count 393 MPV 11.9 Immature Gran % (Auto) 0.400 Neut % (Auto) 78.4 H Lymph % (Auto) 13.4 L Jay % (Auto) 6.9 Eos % (Auto) 0.5 Baso % (Auto) 0.4 Absolute Neuts (auto) 6.5 Absolute Lymphs (auto) 1.10 Nucleated RBC % 0 Sodium 138 Potassium 3.5 Chloride 106 Carbon Dioxide 24.0 Anion Gap 8 BUN 13 Creatinine 0.62 Estim Creat Clear Calc 36.53 Est GFR (MDRD) Af Amer 122 Est GFR (MDRD) Non-Af 100 BUN/Creatinine Ratio 21.0 H Glucose 118 H Calcium 9.4 Magnesium 2.0 Total Bilirubin Direct Bilirubin AST ALT Alkaline Phosphatase Troponin I High Sens 29.9 B-Natriuretic Peptide 148.0 H Total Protein Albumin Globulin 12/15/20 14:25 WBC RBC Hgb Hct MCV MCH MCHC RDW Std Deviation RDW Coeff of Douglas Plt Count MPV Immature Gran % (Auto) Neut % (Auto) Lymph % (Auto) Jay % (Auto) Eos % (Auto) Baso % (Auto) Absolute Neuts (auto) Absolute Lymphs (auto) Nucleated RBC % Sodium Potassium Chloride Carbon Dioxide Anion Gap BUN Creatinine Estim Creat Clear Calc Est GFR (MDRD) Af Amer Est GFR (MDRD) Non-Af BUN/Creatinine Ratio Glucose Calcium Magnesium Total Bilirubin 0.40 Direct Bilirubin 0.13 AST 21 ALT 21 Alkaline Phosphatase 166 H Troponin I High Sens B-Natriuretic Peptide Total Protein 7.4 Albumin 3.9 Globulin 3.5 Radiography Diagnostic Testing: Radiology Impression Chest X-Ray 12/15/20 14:20 IMPRESSION: Elevation of the right hemidiaphragm with right basilar atelectasis. Electronically Signed: Milan Pino MD at 14:42 EDT , Service support , Chest CTA 12/15/20 15:04 IMPRESSION: 1. Right lower lobe pneumonia. 2. Marked intrahepatic and extrahepatic biliary duct dilation. 3. No pulmonary embolism or arterial dissection. Electronically Signed: Katelin Gamboa MD at 17:02 EDT Tel , Service support , EKG Initial EKG: Attestation: I personally reviewed and interpreted this EKG as follows: (Rate of 103 bpm in sinus tachycardia. Normal intervals. Normal axis. There are some ST mild elevations in V1 V2. She does have some depression in lead I. Comparing this to previous EKG the V1 V2 do appear slightly worse. Lead I does appear similar.) <Dr. Peggy Grimes MD - Last Filed: 12/15/20 17:34> [facility] Lab Data Labs: Laboratory Results - last 24 hr 12/15/20 12/15/20 12/15/20 14:25 14:25 14:25 WBC 8.2 RBC 4.68 Hgb 12.3 Hct 38.9 MCV 83.1 MCH 26.3 L MCHC 31.6 L RDW Std Deviation 46.5 H RDW Coeff of Douglas 15.5 H Plt Count 393 MPV 11.9 Immature Gran % (Auto) 0.400 Neut % (Auto) 78.4 H Lymph % (Auto) 13.4 L Jay % (Auto) 6.9 Eos % (Auto) 0.5 Baso % (Auto) 0.4 Absolute Neuts (auto) 6.5 Absolute Lymphs (auto) 1.10 Nucleated RBC % 0 Sodium 138 Potassium 3.5 Chloride 106 Carbon Dioxide 24.0 Anion Gap 8 BUN 13 Creatinine 0.62 Estim Creat Clear Calc 36.53 Est GFR (MDRD) Af Amer 122 Est GFR (MDRD) Non-Af 100 BUN/Creatinine Ratio 21.0 H Glucose 118 H Calcium 9.4 Magnesium 2.0 Total Bilirubin Direct Bilirubin AST ALT Alkaline Phosphatase Troponin I High Sens 29.9 B-Natriuretic Peptide 148.0 H Total Protein Albumin Globulin 12/15/20 14:25 WBC RBC Hgb Hct MCV MCH MCHC RDW Std Deviation RDW Coeff of Douglas Plt Count MPV Immature Gran % (Auto) Neut % (Auto) Lymph % (Auto) Jay % (Auto) Eos % (Auto) Baso % (Auto) Absolute Neuts (auto) Absolute Lymphs (auto) Nucleated RBC % Sodium Potassium Chloride Carbon Dioxide Anion Gap BUN Creatinine Estim Creat Clear Calc Est GFR (MDRD) Af Amer Est GFR (MDRD) Non-Af BUN/Creatinine Ratio Glucose Calcium Magnesium Total Bilirubin 0.40 Direct Bilirubin 0.13 AST 21 ALT 21 Alkaline Phosphatase 166 H Troponin I High Sens B-Natriuretic Peptide Total Protein 7.4 Albumin 3.9 Globulin 3.5 Radiography Diagnostic Testing: Radiology Impression Chest X-Ray 12/15/20 14:20 IMPRESSION: Elevation of the right hemidiaphragm with right basilar atelectasis. Electronically Signed: Milan Pino MD at 14:42 EDT , Service support , Chest CTA 12/15/20 15:04 IMPRESSION: 1. Right lower lobe pneumonia. 2. Marked intrahepatic and extrahepatic biliary duct dilation. 3. No pulmonary embolism or arterial dissection. Electronically Signed: Katelin Gamboa MD at 17:02 EDT Tel , Service support , Treatment and Re-Evaluation Comments:: Patient signed out to me pending CTA of the chest. CTA reveals no evidence of PE but does reveal a right lower lobe infiltrate. On repeat examination patient sats are okay but she remains quite tachypneic. We discussed potential treatment at home with antibiotics. Patient does not feel that she is doing well enough currently to go home. I will treat her with a dose of Levaquin and speak with the hospitalist regarding admission. Discharge Plan Dx/Rx/DC Orders Clinical Impression: Pneumonia Disposition Disposition: Acute Care Hospital [facility] Discharge Date/Time: 12/15/20 18:11
--- NOTE | 2020-12-15 14:20 | RAD_ITS ---
STUDY: X-RAY CHEST REASON FOR EXAM: Female, 70 years old. SOB TECHNIQUE: Single AP portable view of the chest. COMPARISON: Comparison is made with prior study dated 11/02/2020. FINDINGS: EKG electrodes are seen. Elevated right hemidiaphragm. Mild increased markings at the right lung base suggestive of right basilar atelectasis. There is no demonstrated pleural abnormality. Sternal cerclage wires and vascular clips are present from a prior sternotomy and coronary artery bypass graft procedure (CABG). Normal mediastinum and lynn. Normal visualized pulmonary arteries. There is atherosclerotic calcification of the aortic arch with tortuosity. There are diffuse degenerative changes of the visualized thoracic spine. There is degenerative osteoarthritis of the bilateral shoulders. There is no demonstrated abnormality of the visualized soft tissue structures of the upper abdomen. RAD/Chest 1 View (Portable) IMPRESSION: Elevation of the right hemidiaphragm with right basilar atelectasis. Electronically Signed: Milan Pino MD at 14:42 EDT , Service support ,
[2020-12-15 14:32] LABS: Absolute Neutrophil Count 6.5 X10^3/uL (2.0-7.7); Basophil# 0.03 X10^3/uL; Basophil% 0.4 % (0-1); Eosinophil# 0.04 X10^3/uL; Eosinophils% 0.5 % (0-5); Hematocrit 38.9 % (37-47); Hemoglobin 12.3 g/dL (12.0-15.0); Lymphocyte % 13.4 % (19-41); Mean Corp Hgb Conc 31.6 g/dL (32-36); Mean Corpuscular Hgb 26.3 pg (27.0-32.0); Mean Corpuscular Volume 83.1 fL (81-99); Mean Platelet Vol. 11.9 fl (6.2-12.0); Monocyte# 0.57 X10^3/uL; Monocyte% 6.9 % (0-10); NRBC Flagged by Analyzer 0 % (0-5); Neutrophil # 6.45 X10^3/uL (2.7-7.7); Neutrophil % 78.4 % (47-70); Platelet Count 393 K/mm3 (150-450); RBC Distribution Width CV 15.5 % (11.6-14.6); RBC Distribution Width SD 46.5 fl (35.1-43.9); Red Blood Count 4.68 M/mm3 (4.2-5.4); White Blood Count 8.2 K/mm3 (4.4-11.0)
[2020-12-15 14:51] LABS: Anion Gap 8 (5-15); BUN 13 mg/dL (7-18); Calcium,Total 9.4 mg/dL (8.5-10.1); Chloride 106 mmol/L (98-107); Creatinine, Serum 0.62 mg/dL (0.55-1.02); EST Glomerular Filtration Rate 100 mL/min (>60); Est Glom Filt Rate - Afr Amer 122 mL/min (>60); Estimated Creatinine Clearance 36.53 ml/min; Glucose 118 mg/dL (74-106); Potassium 3.5 mmol/L (3.5-5.1); Sodium Level 138 mmol/L (136-145); Troponin-I HS 29.9 pg/mL (3.0-53.7)
--- NOTE | 2020-12-15 15:04 | CT_ITS ---
STUDY: CTA CHEST REASON FOR EXAM: Female, 70 years old. SOB post CABG, eval for PE RADIATION DOSAGE (If Supplied By Facility): CTDIvol = ( 8.47 ) mGy, DLP = ( 424.16 ) mGycm TECHNIQUE: The examination was performed with the intravenous administration of IV 75mL [id number]-[id number]. Post-processing of the angiographic images was performed, with multiplanar reformation and 3D reconstruction. Individualized dose optimization techniques were used for this CT. COMPARISON: None. FINDINGS: Heart size and pericardium are unremarkable. The aorta is normal in caliber. No aneurysm or dissection. There is no mediastinal mass or adenopathy. There is no hilar or axillary adenopathy. There is no evidence of pulmonary embolus. There is no pleural effusion. Moderate consolidation in the right lower lobe consistent with pneumonia. Gallbladder is surgically absent. There is marked intrahepatic and extrahepatic duct dilation. Proximal common duct measures 2.8 cm. Common duct in the pancreatic head measures 2.4 cm. No opaque stone is demonstrated (distal CBD is excluded from the [id number].) No pancreatic duct dilation. Calcifications in the liver and spleen consistent with old granulomatous disease. 5 cm right renal cyst. 2 cm upper pole left renal cyst. There is no osseous abnormality. CT/CTA Chest W/WO Contrast IMPRESSION: 1. Right lower lobe pneumonia. 2. Marked intrahepatic and extrahepatic biliary duct dilation. 3. No pulmonary embolism or arterial dissection. Electronically Signed: Katelin Gamboa MD at 17:02 EDT Tel , Service support ,
[2020-12-15] MEDS: levoFLOXacin IV 750 MG/150 ML BAG 100 MG IV (17:59)
--- NOTE | 2020-12-15 18:04 | HP.PCM_ITS ---
Documented by User: CINTIA Gunn 12/15/20 18:18 HPI - General General Date of Admission: 12/15/20 Date of Service: 12/15/20 Chief Complaint: Shortness of breath HPI Narrative NEHEMIAS VARELA, is a 70 F who presents with complaints of shortness of breath that have been progressively worse over the past 3 days. Patient states that she has been slightly short of breath since undergoing CABG approximately 6 weeks ago. Patient also reports a cough. Patient denies fever, chills, nausea, vomiting. [facility] Medical History (Updated 12/15/20 @ 18:10 by CINTIA Gunn) GERD (gastroesophageal reflux disease) History of back pain HLD (hyperlipidemia) HTN (hypertension) Pinched vertebral nerve Scoliosis Home Medications chlorthalidone 25 mg PO DAILY 11/02/20 [History Last Taken Unknown] labetalol 100 mg PO BID 11/02/20 [History Last Taken Unknown] pantoprazole 40 mg PO DAILY 11/02/20 [History Last Taken Unknown] tramadol 100 mg PO TID PRN 11/02/20 [History Last Taken Unknown] aspirin 81 mg PO DAILY@0800 #1 tab 11/03/20 [Rx Last Taken Unknown] rosuvastatin 20 mg PO DAILY 12/15/20 [History Last Taken Unknown] valsartan 320 mg PO DAILY 12/15/20 [History Last Taken Unknown] Allergy/AdvReac Type Severity Reaction Status Date / Time Penicillins Allergy Unknown Verified 12/15/20 13:37 Sulfa (Sulfonamide Allergy Rash Verified 12/15/20 13:37 Antibiotics) Family History (Updated 12/15/20 @ 18:05 by CINTIA Gunn) Mother Alcoholism Father Hypertension Brother Diabetes Sister Diabetes Surgical History (Updated 12/15/20 @ 18:06 by CINTIA Gunn) History of cholecystectomy S/P appendectomy S/P CABG x 5 Social History household members: spouse Smoking Status: Never smoker alcohol intake: never substance use type: does not use ROS Constitutional Constitutional: Denies anorexia, chills, fatigue, fever(s) or weakness Cardiovascular Cardiovascular: Denies chest pain, edema or palpitations Respiratory/Chest Respiratory/Chest: Reports cough, shortness of breath at rest, shortness of breath with exertion and wheezing Gastrointestinal Gastrointestinal: Denies abdominal pain, constipation, diarrhea, nausea or vomiting Genitourinary Genitourinary: Denies dysuria Musculoskeletal Musculoskeletal: Reports back pain and extremity pain; Denies joint pain, joint stiffness or joint swelling Integumentary Integumentary: Reports dry skin Neurologic Neurologic: Denies abnormal gait, abnormal speech, confusion, dizziness or focal weakness Psychiatric Psychiatric: Reports anxiety Endocrine Endocrinology: Denies change in body appearance Hematologic/Lymphatic Hematologic/Lymphatic: Denies easy bleeding or easy bruising Vital Signs Vital Signs Vital Signs: 12/15/20 13:37 12/15/20 14:28 12/15/20 14:30 Temperature 97.5 F L Temperature Source Temporal Pulse Rate 106 H 106 H Respiratory Rate 24 H 34 H Respiratory Effort Short of Breath Respiratory Depth Deep Respiratory Pattern Tachypnea Blood Pressure 160/107 H 154/107 H Blood Pressure Mean 124 122 Pulse Ox 99 98 Oxygen Delivery Method Room Air Room Air Room Air 12/15/20 15:18 12/15/20 17:03 Temperature Temperature Source Pulse Rate 103 H 102 H Respiratory Rate 28 H 20 H Respiratory Effort Respiratory Depth Respiratory Pattern Blood Pressure 171/102 H 169/103 H Blood Pressure Mean 125 125 Pulse Ox 96 96 Oxygen Delivery Method Room Air Room Air Weight Weight: 136 lb Body Mass Index (BMI) 26.5 Physical Exam Const alert and oriented x3 General Appearance: cooperative HEENT normocephalic and head/scalp atraumatic Eyes conjunctivae normal and no scleral icterus Neck supple and no JVD General: trachea midline Resp normal respiratory effort and normal air movement Effort and Inspection: tachypneic Auscultation: wheezes left lower Cardio regular rate, regular rhythm, S1 normal heart sound, S2 normal heart sound and peripheral pulses 2+ throughout Rate: tachycardic GI normal to inspection, nondistended, normoactive bowel sounds, soft to palpation and non-tender Extremity normal capillary refill and no clubbing, cyanosis or edema General Extremity: no tenderness to palpation of joints or extremities Skin General Skin Exam: no breakdown and turgor normal Lesions: no lesions Rashes: no rashes Neuro no focal motor deficits and no sensory deficits noted Speech: speech normal Motor Exam: Negative for general weakness Psych thought process normal and cooperative Appearance: appropriate Mood & Affect: anxious Results Lab / Micro Data Result Diagrams: 12/15/20 14:25 08/13/21 14:25 Labs: Laboratory Results - last 24 hr 12/15/20 14:25: WBC 8.2, RBC 4.68, Hgb 12.3, Hct 38.9, MCV 83.1, MCH 26.3 L, MCHC 31.6 L, RDW Std Deviation 46.5 H, RDW Coeff of Douglas 15.5 H, Plt Count 393, MPV 11.9, Immature Gran % (Auto) 0.400, Neut % (Auto) 78.4 H, Lymph % (Auto) 13.4 L, Sebastian % (Auto) 6.9, Eos % (Auto) 0.5, Baso % (Auto) 0.4, Absolute Neuts (auto) 6.5, Absolute Lymphs (auto) 1.10, Nucleated RBC % 0 12/15/20 14:25: Sodium 138, Potassium 3.5, Chloride 106, Carbon Dioxide 24.0, Anion Gap 8, BUN 13, Creatinine 0.62, Estim Creat Clear Calc 36.53, Est GFR (MDRD) Af Amer 122, Est GFR (MDRD) Non-Af 100, BUN/Creatinine Ratio 21.0 H, Glucose 118 H, Calcium 9.4, Magnesium 2.0, Troponin I High Sens 29.9 12/15/20 14:25: B-Natriuretic Peptide 148.0 H Radiology Impression Chest X-Ray 12/15/20 14:20 IMPRESSION: Elevation of the right hemidiaphragm with right basilar atelectasis. Electronically Signed: Milan Pino MD at 14:42 EDT , Service support , Chest CTA 12/15/20 15:04 IMPRESSION: 1. Right lower lobe pneumonia. 2. Marked intrahepatic and extrahepatic biliary duct dilation. 3. No pulmonary embolism or arterial dissection. Electronically Signed: Katelin Gamboa MD at 17:02 EDT Tel , Service support , Assessment & Plan Assessment/Plan (1) Pneumonia: QUALIFIERS: Laterality: right Lung location: lower lobe of lung Pneumonia type: due to unspecified organism Qualified Code(s): J18.9 - Pneumonia, unspecified organism PLAN: 1. Pneumonia right lower lobe -Admit to [facility] -Will continue Levaquin, first dose given in ER -MRSA screen ordered, if positive will add vancomycin coverage as well -Urine Legionella and urine strep pneumoniae ordered as well -Respiratory panel ordered -Sputum culture ordered -Oxygen per protocol -As needed albuterol aerosols ordered -Encourage incentive spirometry -CBC and CMP ordered daily 2. Hypertension -Continue home medication regimen -As needed hydralazine ordered -Vital signs, trend BP -Cardiac diet ordered 3. Hyperlipidemia -Continue rosuvastatin 4. Chronic back pain with radicular leg pain -Will continue patient's scheduled tramadol -Will add low-dose gabapentin twice daily 5. Status post CABG x5 -Completed approximately 6 weeks ago at [facility] DVT prophylaxis-SCDs and subcu Lovenox This patient was seen by CINTIA Gunn under the supervision of Dr. Nguyen. Documented by User: Dr. Mandi Nguyen MD 12/15/20 18:23 HPI - General General Date of Admission: 12/15/20 [facility] Medical History (Updated 12/15/20 @ 18:10 by CINTIA Gunn) GERD (gastroesophageal reflux disease) History of back pain HLD (hyperlipidemia) HTN (hypertension) Pinched vertebral nerve Scoliosis Home Medications chlorthalidone 25 mg PO DAILY 11/02/20 [History Last Taken Unknown] labetalol 100 mg PO BID 11/02/20 [History Last Taken Unknown] pantoprazole 40 mg PO DAILY 11/02/20 [History Last Taken Unknown] tramadol 100 mg PO TID PRN 11/02/20 [History Last Taken Unknown] aspirin 81 mg PO DAILY@0800 #1 tab 11/03/20 [Rx Last Taken Unknown] rosuvastatin 20 mg PO DAILY 12/15/20 [History Last Taken Unknown] valsartan 320 mg PO DAILY 12/15/20 [History Last Taken Unknown] Allergy/AdvReac Type Severity Reaction Status Date / Time Penicillins Allergy Unknown Verified 12/15/20 13:37 Sulfa (Sulfonamide Allergy Rash Verified 12/15/20 13:37 Antibiotics) Family History (Updated 12/15/20 @ 18:05 by Rochelle Lugo NP-C) Mother Alcoholism Father Hypertension Brother Diabetes Sister Diabetes Surgical History (Updated 12/15/20 @ 18:06 by Rochelle Lugo NP-C) History of cholecystectomy S/P appendectomy S/P CABG x 5 Social History household members: spouse Smoking Status: Never smoker alcohol intake: never substance use type: does not use Results Lab / Micro Data Result Diagrams: 12/15/20 14:25 12/15/20 14:25
[2020-12-15] MEDS: traMADol 50 MG Tablet PO ×2 (18:06→18:07)
[2020-12-15 18:19] LABS: AST(SGOT) 21 U/L (15-37); Alanine Aminotransfer ALT/SGPT 21 U/L (13-56); Albumin, Serum 3.9 g/dL (3.2-5.0); Alkaline Phosphatase 166 U/L (45-117); Bilirubin, Direct 0.13 mg/dL (0.00-0.30); Globulin 3.5 g/dL (2.2-4.2); Protein, Total 7.4 g/dL (6.4-8.2)
[2020-12-15] MEDS: 0.9% Normal Saline 1,000 ML 100 ML IV (20:01)
[2020-12-15] MEDS: Labetalol 200 MG Tablet PO (20:26)
[2020-12-15] MEDS: Atorvastatin Calcium 40 MG Tablet PO (20:26)
[2020-12-15] MEDS: Gabapentin 100 MG Capsule PO (20:26)
[2020-12-15] MEDS: Zolpidem Tartrate 5 MG Tablet PO (20:37)
[2020-12-15 22:29] LABS: M R Staph aureus DNA By PCR Negative (Negative); Probe Check PASS; Specimen Processing Control PASS
[2020-12-15] MEDS: traMADol 50 MG Tablet 100 MG PO (23:51)
[2020-12-16] VITALS (7 sets, daily range): BP systolic 115–163; BP diastolic 61–76; PULSE 84–98; RESP 18–22; TEMP 36.1–37.1; O2SAT 95–98
[2020-12-16] MEDS: traMADol 50 MG Tablet 100 MG PO ×3 (05:21→22:05)
[2020-12-16] MEDS: 0.9% Normal Saline 1,000 ML 100 ML IV (05:21)
[2020-12-16] MEDS: guaiFENesin 10 ML UDC (200MG/10ML) 20 ML PO ×3 (06:29→18:20)
[2020-12-16 07:40] LABS: ALB/GLOB Ratio 1.1 RATIO (0.9-2.4); AST(SGOT) 16 U/L (15-37); Alanine Aminotransfer ALT/SGPT 19 U/L (13-56); Alkaline Phosphatase 134 U/L (45-117); Anion Gap 7 (5-15); BUN 13 mg/dL (7-18); BUN/Creat Ratio 20.4 RATIO (10-20); Calcium,Total 8.3 mg/dL (8.5-10.1); Chloride 105 mmol/L (98-107); Creatinine, Serum 0.64 mg/dL (0.55-1.02); EST Glomerular Filtration Rate 97 mL/min (>60); Est Glom Filt Rate - Afr Amer 118 mL/min (>60); Estimated Creatinine Clearance 36.53 ml/min; Globulin 2.8 g/dL (2.2-4.2); Glucose 143 mg/dL (74-106); Potassium 3.2 mmol/L (3.5-5.1); Protein, Total 5.8 g/dL (6.4-8.2); Sodium Level 137 mmol/L (136-145)
[2020-12-16] MEDS: Gabapentin 100 MG Capsule PO ×2 (09:15→18:15)
[2020-12-16] MEDS: Losartan Potassium 100 MG Tablet PO (09:15)
[2020-12-16] MEDS: Aspirin E.C. 81 MG Tablet PO (09:15)
[2020-12-16] MEDS: Pantoprazole Sodium 40 MG Tablet PO ×2 (09:16)
[2020-12-16] MEDS: Enoxaparin 40 MG/0.4 ML Syringe SC (09:16)
[2020-12-16] MEDS: Chlorthalidone 50 MG Tablet 25 MG PO (09:16)
[2020-12-16] MEDS: Labetalol 200 MG Tablet PO ×2 (09:16→22:05)
[2020-12-16 09:34] LABS: Absolute Lymphocyte Count 1.09 X10^3/uL (0.83-4.51); Absolute Neutrophil Count 4.5 X10^3/uL (2.0-7.7); Basophil# 0.01 X10^3/uL; Basophil% 0.2 % (0-1); Eosinophil# 0.19 X10^3/uL; Hematocrit 32.3 % (37-47); Hemoglobin 9.8 g/dL (12.0-15.0); Lymphocyte # 1.09 X10^3/ul (0.83-4.51); Mean Corp Hgb Conc 30.3 g/dL (32-36); Mean Corpuscular Hgb 25.7 pg (27.0-32.0); Mean Corpuscular Volume 84.8 fL (81-99); Mean Platelet Vol. 11.7 fl (6.2-12.0); Monocyte# 0.61 X10^3/uL; Monocyte% 9.5 % (0-10); NRBC Flagged by Analyzer 0 % (0-5); Neutrophil # 4.48 X10^3/uL (2.7-7.7); Neutrophil % 69.7 % (47-70); Platelet Count 279 K/mm3 (150-450); RBC Distribution Width CV 15.4 % (11.6-14.6); RBC Distribution Width SD 47.6 fl (35.1-43.9); Red Blood Count 3.81 M/mm3 (4.2-5.4); White Blood Count 6.4 K/mm3 (4.4-11.0)
--- NOTE | 2020-12-16 11:14 | NURSING ---
PT C/O PAIN IN MIDDLE OF CHEST. STATES SHE THINK SHE MAY HAVE PULLED SOMETHING GETTING IN TO BED. VSS. P.O. 97 % ON RA. PT IS TELLING THIS NURSE ABOUT HER CHEST PAIN, SHE IS INQUIRING ABOUT HER ULTRAM. UPSET THAT SHE IS GETTING IT Q8H INSTEAD OF Q6H SHE STATES SHE TAKES @ HOME. DR RIVERA NOTIFIED. WILL MONITOR PT CLOSELY.
[2020-12-16] MEDS: levoFLOXacin IV 750 MG/150 ML BAG 100 MG IV (11:24)
--- NOTE | 2020-12-16 12:20 | CASEMGMT ---
Addendum entered by Mary Murguia 12/16/20 20:52: 1320: GARZA form explained re: Observation status for treatment of pneumonia.? Explained hospitalization will be paid per?her insurance policy for Outpatient billing?and condition will continue to be evaluated for Inpt necessity. Also let pt know that [facility] sends paper in the billing packet with their phone number if questions arise. Discussed Pharmacy section of [facility]AR[facility] form and self administered medication guideline.? Pt verbalizes understanding and does not have further questions. ?Form signed, copy made and placed in chart, and original given to pt. Original Note: RN CM RESIDENTIAL LIFE DIRECTOR CM to room to meet with patient for initial transition planning/care coordination assessment. RN VICENTE introduced self and role at [facility].? Pt voices understanding and consents to assessment at this time.? Pt resting in bed in no distress at this time.? , Jeremy, @ bedside. Pt is A/O at this time and answers all questions appropriately.?? Care providers, pharmacy, and demographics verified/updated at this time. PCP: Dr Elroy Wellington Specialists: Pt states will be calling Friday to make an appt w/Dr Costello Preferred Pharmacy: [facility] Prescription Benefit:? Yes Living Will/HPOA:? Pt is not sure is she has done a LW, but states she has done HPOA, who is her . LNOK: , Jeremy. Son. Living Arrangements: Lives w/her , Jeremy, in one-story home w/3 steps to enter. Independent w/ADL's. supportive and has been doing home mgmt tasks since CABG about 6 weeks ago. Transportation: Pt/. DME: States has the following DME:? BP machine, pulse ox ?Pt states no need for further DME at this time.? HHC/SNF: No hx SNF. Just had [facility] after CABG. Was just d/c'd from their services on . Pt denies need for HHC. Pt wishes to return home and states has no concerns with going home at time of discharge.? CM to follow for any discharge planning/needs.? Pt/ voice no concerns/needs at this time.? Advised them to ask for CM if any questions/concerns/needs arise.? They voice understanding. PLAN: ?Home w/spousal support and discharge plans in place. Chris VÁZQUEZN RN CM
--- NOTE | 2020-12-16 14:17 | PCM.PN.HOSP ---
Subjective Subjective Patient seen and examined. She was admitted with a complaint of shortness of breath adn found to have pneumonia per xray. She is being managed for community acquired pneumonia. She had no complaints this morning and felt well. Review of systems is otherwise negative. She has remained hemodynamically stable. Shortness of breath has improved significantly. Objective Data Objective Data Vital Signs: Vital Signs Temp Pulse Resp BP Pulse Ox 98.5 F 93 18 145/61 H 97 12/16/20 14:08 12/16/20 14:08 12/16/20 14:08 12/16/20 14:08 12/16/20 14:08 Oxygen Delivery Method Room Air Weight: 136 lb 14.513 oz Body Mass Index (BMI) 26.4 Intake & Output: Intake and Output for Last 24 Hours 12/14/20 12/15/20 12/16/20 23:59 23:59 23:59 Intake Total 550 / 550 1283.33 / 1283.33 Output Total 200 / 200 Balance 550 / 550 1083.33 / 1083.33 Lab / Micro Data Result Diagrams: 12/16/20 06:57 12/16/20 06:57 Labs: Laboratory Results - last 24 hr 12/15/20 14:25: WBC 8.2, RBC 4.68, Hgb 12.3, Hct 38.9, MCV 83.1, MCH 26.3 L, MCHC 31.6 L, RDW Std Deviation 46.5 H, RDW Coeff of Douglas 15.5 H, Plt Count 393, MPV 11.9, Immature Gran % (Auto) 0.400, Neut % (Auto) 78.4 H, Lymph % (Auto) 13.4 L, [place] % (Auto) 6.9, Eos % (Auto) 0.5, Baso % (Auto) 0.4, Absolute Neuts (auto) 6.5, Absolute Lymphs (auto) 1.10, Nucleated RBC % 0 12/15/20 14:25: Sodium 138, Potassium 3.5, Chloride 106, Carbon Dioxide 24.0, Anion Gap 8, BUN 13, Creatinine 0.62, Estim Creat Clear Calc 36.53, Est GFR (MDRD) Af Amer 122, Est GFR (MDRD) Non-Af 100, BUN/Creatinine Ratio 21.0 H, Glucose 118 H, Calcium 9.4, Magnesium 2.0, Troponin I High Sens 29.9 12/15/20 14:25: B-Natriuretic Peptide 148.0 H 12/15/20 14:25: Total Bilirubin 0.40, Direct Bilirubin 0.13, AST 21, ALT 21, Alkaline Phosphatase 166 H, Total Protein 7.4, Albumin 3.9, Globulin 3.5 12/15/20 20:35: MRSA (PCR) Negative 12/16/20 06:57: WBC 6.4, RBC 3.81 L, Hgb 9.8 L, Hct 32.3 L, MCV 84.8, MCH 25.7 L, MCHC 30.3 L, RDW Std Deviation 47.6 H, RDW Coeff of Douglas 15.4 H, Plt Count 279, MPV 11.7, Immature Gran % (Auto) 0.600, Neut % (Auto) 69.7, Lymph % (Auto) 17.0 L, [place] % (Auto) 9.5, Eos % (Auto) 3.0, Baso % (Auto) 0.2, Absolute Neuts (auto) 4.5, Absolute Lymphs (auto) 1.09, Nucleated RBC % 0 12/16/20 06:57: Sodium 137, Potassium 3.2 L, Chloride 105, Carbon Dioxide 25.0, Anion Gap 7, BUN 13, Creatinine 0.64, Estim Creat Clear Calc 36.53, Est GFR (MDRD) Af Amer 118, Est GFR (MDRD) Non-Af 97, BUN/Creatinine Ratio 20.4 H, Glucose 143 H, Calcium 8.3 L, Total Bilirubin 0.30, AST 16, ALT 19, Alkaline Phosphatase 134 H, Total Protein 5.8 L, Albumin 3.0 L, Globulin 2.8, Albumin/Globulin Ratio 1.1 Micro: Microbiology 12/16/20 03:50 Urine, Clean Catch Legionella Antigen - Final 12/16/20 03:50 Urine, Clean Catch Streptococcus pneumoniae Antigen (M - Final 12/15/20 19:25 Mucosa - Nose Respiratory Panel (PCR) - Final Radiography Diagnostic Testing: Radiology Impression Chest X-Ray 12/15/20 14:20 IMPRESSION: Elevation of the right hemidiaphragm with right basilar atelectasis. Electronically Signed: Milan Pino MD at 14:42 EDT , Service support , Chest CTA 12/15/20 15:04 IMPRESSION: 1. Right lower lobe pneumonia. 2. Marked intrahepatic and extrahepatic biliary duct dilation. 3. No pulmonary embolism or arterial dissection. Electronically Signed: Katelin Gamboa MD at 17:02 EDT Tel , Service support , Physical Exam Const alert, oriented x3 and no apparent distress General Appearance: cooperative Exam Limitations: no limitations HEENT normocephalic, head/scalp atraumatic and moist oral mucous membranes Head and Scalp: normocephalic Eyes PERRL, EOMs intact bilaterally, conjunctivae normal and no scleral icterus Neck no lymphadenopathy, supple and no JVD General: trachea midline Resp normal respiratory effort, normal air movement, no retractions, no use of accessory muscles and clear to auscultation bilaterally Effort and Inspection: tachypneic Cardio regular rate, regular rhythm, S1 normal heart sound, S2 normal heart sound and peripheral pulses 2+ throughout Rate: tachycardic GI normal to inspection, nondistended, normoactive bowel sounds, soft to palpation and non-tender Extremity normal to inspection, full ROM, normal capillary refill and no clubbing, cyanosis or edema General Extremity: no tenderness to palpation of joints or extremities Peripheral Pulses: Yes pulses 2+ throughout Skin no rashes or lesions noted General Skin Exam: no breakdown and turgor normal Lesions: no lesions Rashes: no rashes Neuro oriented x3, CN's II-XII intact bilaterally and moves all extremities Sensorium / Orientation: awake and alert Motor Exam: Negative for general weakness Psych thought process normal, cooperative and affect normal Appearance: appropriate Assessment & Plan Assessment/Plan (1) Pneumonia: QUALIFIERS: Pneumonia type: due to unspecified organism Laterality: right Lung location: lower lobe of lung Qualified Code(s): J18.9 - Pneumonia, unspecified organism PLAN: #Community acquired pneumonia of the right lower lobe on IV levaquin urine for strep and legionella are negative. sputum culutre and gram stain pending titrate oxygen to maintain sats >90% breathing treatments with bronchodilators. #Hypertension; on hydralazine prn. On chlorthalidone and labetalol as well as losartan. #Hyperlipidemia: on statin #CAD s/p CABG; this was done ~ 5 weeks ago at [facility]. On aspirin and statin. #Chronic lower back pain: on tramadol and low dose gabapentin DVT prophylaxis: lovenox Charges/Coding Visit Charges Inpatient E&M: 12911 Subs Hosp L2
[2020-12-16] MEDS: BENZOCAINE/MENTHOL 1 LOZENGE MUCOUS MEM (14:23)
[2020-12-16] MEDS: Morphine 2 MG/ML Syringe IV ×2 (14:25→23:55)
[2020-12-16] MEDS: 0.9% Saline Lock 10 ML Syringe IV ×2 (14:26→23:55)
[2020-12-16] MEDS: Zolpidem Tartrate 5 MG Tablet PO (22:05)
[2020-12-16] MEDS: Atorvastatin Calcium 40 MG Tablet PO (22:05)
[2020-12-17 05:00] VITALS: BP 135/74; PULSE 105; RESP 18; TEMP 37.1; O2SAT 95
[2020-12-17] MEDS: traMADol 50 MG Tablet 100 MG PO ×2 (05:03→13:46)
[2020-12-17] MEDS: BENZOCAINE/MENTHOL 1 LOZENGE MUCOUS MEM (05:07)
[2020-12-17] MEDS: guaiFENesin 10 ML UDC (200MG/10ML) 20 ML PO (05:07)
[2020-12-17] MEDS: 0.9% Saline Lock 10 ML Syringe IV ×2 (06:29→10:31)
[2020-12-17] MEDS: Morphine 2 MG/ML Syringe IV ×2 (06:29→10:30)
[2020-12-17 06:58] LABS: Absolute Neutrophil Count 5.9 X10^3/uL (2.0-7.7); Basophil# 0.03 X10^3/uL; Basophil% 0.4 % (0-1); Eosinophils% 2.5 % (0-5); Hematocrit 32.6 % (37-47); Lymphocyte % 12.4 % (19-41); Mean Corp Hgb Conc 30.7 g/dL (32-36); Mean Corpuscular Volume 84.9 fL (81-99); Mean Platelet Vol. 12.1 fl (6.2-12.0); Monocyte# 0.88 X10^3/uL; Monocyte% 10.9 % (0-10); NRBC Flagged by Analyzer 0 % (0-5); Neutrophil # 5.93 X10^3/uL (2.7-7.7); Neutrophil % 73.4 % (47-70); Platelet Count 273 K/mm3 (150-450); RBC Distribution Width CV 15.3 % (11.6-14.6); Red Blood Count 3.84 M/mm3 (4.2-5.4); White Blood Count 8.1 K/mm3 (4.4-11.0)
[2020-12-17 07:04] LABS: Anion Gap 8 (5-15); BUN 13 mg/dL (7-18); BUN/Creat Ratio 19.7 RATIO (10-20); Calcium,Total 8.6 mg/dL (8.5-10.1); Chloride 103 mmol/L (98-107); Creatinine, Serum 0.66 mg/dL (0.55-1.02); EST Glomerular Filtration Rate 94 mL/min (>60); Est Glom Filt Rate - Afr Amer 113 mL/min (>60); Estimated Creatinine Clearance 36.53 ml/min; Glucose 159 mg/dL (74-106); Potassium 3.3 mmol/L (3.5-5.1); Sodium Level 135 mmol/L (136-145)
[2020-12-17 07:37] VITALS: O2SAT 95
[2020-12-17] MEDS: Potassium Chloride Oral Tablet 20 MEQ 40 MEQ PO (08:54)
[2020-12-17] MEDS: Aspirin E.C. 81 MG Tablet PO (08:55)
[2020-12-17] MEDS: Chlorthalidone 50 MG Tablet 25 MG PO (08:56)
[2020-12-17] MEDS: Losartan Potassium 100 MG Tablet PO (08:56)
[2020-12-17] MEDS: Gabapentin 100 MG Capsule PO (08:56)
[2020-12-17] MEDS: Pantoprazole Sodium 40 MG Tablet PO (08:56)
[2020-12-17] MEDS: Labetalol 200 MG Tablet PO (08:57)
[2020-12-17] MEDS: levoFLOXacin IV 750 MG/150 ML BAG 100 MG IV (10:30)
[2020-12-17] MEDS: Enoxaparin 40 MG/0.4 ML Syringe SC (10:30)
[2020-12-17 10:38] VITALS: BP 96/83; PULSE 90; RESP 18; TEMP 36.9; O2SAT 95
--- NOTE | 2020-12-17 11:45 | DS.PCM_ITS ---
Providers Date of Admission: 12/15/20 Primary Care Physician: Dr. Elroy Wellington MD Reason For Visit: PNEUMONIA Diagnosis Discharge Diagnosis (1) Pneumonia: Status: Acute Code(s): J18.9 - Pneumonia, unspecified organism Qualifiers: Laterality: right Lung location: lower lobe of lung Pneumonia type: due to unspecified organism Qualified Code(s): J18.9 - Pneumonia, unspecified organism Medications at Discharge Home Medications chlorthalidone 25 mg PO DAILY 11/02/20 labetalol 200 mg PO BID 11/02/20 pantoprazole 40 mg PO DAILY 11/02/20 tramadol 100 mg PO TID PRN 11/02/20 aspirin 81 mg PO DAILY@0800 #1 tab 11/03/20 furosemide 40 mg PO DAILY PRN PRN 12/15/20 rosuvastatin 20 mg PO QHS 12/15/20 valsartan 320 mg PO DAILY 12/15/20 levofloxacin 750 mg PO DAILY #5 tab 12/17/20 Hospital Course Operations None Procedures None Summary of Care Provided Minutes Spent on Discharge: 40 Hospital Course: Patient is a 70 y/o Female with a PMH as outlined who was admitted via the ED on 12/15/2020 with a complaint of shortness of breath that worsened over 3 days prior to admission. She had CABG 6 weeks prior to this admission. She also had a cough, but denied fever, chills, nausea or vomiting. Review of systems is otherwise negative. Chest xray showed elevation of the right diaphragm with right basilar atelectasis. Chest CTA was negative for PE, but showed evidence of right lower lobe pneumonia, and marked intrahepatic and extrahepatic biliary duct dilatation. She was started on IV levofloxacin. Urine for strep and legionella were negative. Respiratory panel was also negative. Patient's shortness of breath remained stable. She was discharged home on 12/17/2020 on PO levaquin 750mg daily x 5 days. She was also referred to cardiology (Dr Costello) to establish cardiology care as patient hadnt followed up with a regional extension service specialist since she had her CABG. Patient seen and examined prior to discharge. She had no complaints and felt well. Review of systems is otherwise negative. Labs and vitals reviewed. Home meds reviewed and reconciled. Physical Exam Const alert, oriented x3 and no apparent distress General Appearance: cooperative, comfortable, well kempt and well developed Exam Limitations: no limitations HEENT normocephalic, head/scalp atraumatic and moist oral mucous membranes Eyes PERRL, EOMs intact bilaterally, conjunctivae normal and no scleral icterus Neck no lymphadenopathy, supple and no JVD General: trachea midline Resp normal respiratory effort, normal air movement, no retractions and no use of accessory muscles Resp Narrative: few right crackles in right lower lung blanchard. Effort and Inspection: tachypneic Cardio regular rate, regular rhythm, S1 normal heart sound, S2 normal heart sound and peripheral pulses 2+ throughout Rate: tachycardic GI normal to inspection, nondistended, normoactive bowel sounds, soft to palpation and non-tender Extremity normal to inspection, full ROM, normal capillary refill and no clubbing, cyanosis or edema General Extremity: no tenderness to palpation of joints or extremities Skin no rashes or lesions noted General Skin Exam: no breakdown and turgor normal Lesions: no lesions Rashes: no rashes Neuro oriented x3, CN's II-XII intact bilaterally and moves all extremities Sensorium / Orientation: awake and alert Motor Exam: Negative for general weakness Psych thought process normal, cooperative and affect normal Appearance: appropriate Weight / BMI Weight Weight: 138 lb 14.259 oz Body Mass Index (BMI) 26.4 ABG / Lab / Microbiology Data Result Diagrams: 12/17/20 06:10 12/17/20 06:10 Laboratory: Laboratory Results - last 24 hr 12/17/20 06:10: WBC 8.1, RBC 3.84 L, Hgb 10.0 L, Hct 32.6 L, MCV 84.9, MCH 26.0 L, MCHC 30.7 L, RDW Std Deviation 47.0 H, RDW Coeff of Douglas 15.3 H, Plt Count 273, MPV 12.1 H, Immature Gran % (Auto) 0.400, Neut % (Auto) 73.4 H, Lymph % (Auto) 12.4 L, Leon % (Auto) 10.9 H, Eos % (Auto) 2.5, Baso % (Auto) 0.4, Absolute Neuts (auto) 5.9, Absolute Lymphs (auto) 1.00, Nucleated RBC % 0 12/17/20 06:10: Sodium 135 L, Potassium 3.3 L, Chloride 103, Carbon Dioxide 24.0, Anion Gap 8, BUN 13, Creatinine 0.66, Estim Creat Clear Calc 36.53, Est GFR (MDRD) Af Amer 113, Est GFR (MDRD) Non-Af 94, BUN/Creatinine Ratio 19.7, Glucose 159 H, Calcium 8.6 Microbiology: Microbiology 12/16/20 12:40 Mucosa - Nose SARS-CoV-2 Antigen (Rapid) - Final 12/16/20 03:50 Urine, Clean Catch Legionella Antigen - Final 12/16/20 03:50 Urine, Clean Catch Streptococcus pneumoniae Antigen (M - Final 12/15/20 19:25 Mucosa - Nose Respiratory Panel (PCR) - Final D/C Instructions Discharge Diet: Low fat / Low cholesterol Discharge Activity: Return to Normal Activity Weight Bearing Status: Weight bearing as tolerated Call your doctor if you observe: Fever of 101 or Higher, Shortness of breath and Swelling in the ankles Meaningful Use Info Meaningful Use Diagnoses (Choose all that apply): None applicable Discharge Plan Admission Admit Date/Time: 12/15/20 17:51 Primary Reason for Your Visit: community acquired pneumonia Attending Provider: Juana Jin Primary Care Provider: Elroy Wellington Instructions Patient Instructions: What Is Pneumonia?, Treating Pneumonia, Pneumonia Discharge Orders/Prescriptions Prescriptions: New levofloxacin 750 mg tablet 750 mg PO DAILY Qty: 5 RF: 0 Continued chlorthalidone 25 mg Tablet 25 mg PO DAILY RF: 0 tramadol 50 mg tablet 100 mg PO TID PRN (Reason: Pain) RF: 0 pantoprazole 40 mg Tablet,Delayed Release (Dr/Ec) 40 mg PO DAILY RF: 0 labetalol 100 mg Tablet 200 mg PO BID RF: 0 aspirin 81 mg Tablet,Delayed Release (Dr/Ec) 81 mg PO DAILY@0800 Qty: 1 RF: 0 valsartan 320 mg Tablet 320 mg PO DAILY RF: 0 rosuvastatin 20 mg Tablet 20 mg PO QHS RF: 0 furosemide 40 mg tablet 40 mg PO DAILY PRN PRN (Reason: Weight Gain) RF: 0 Referrals / Follow Up: Roshan Costello MD [STAFF PHYSICIAN] - Within 2 Weeks (to establish cardiology care after CABG) Elroy Wellington MD [Primary Care Provider] - In 1 Week Disposition Disposition (needs filled in before D/C Order can be placed): Home, Self Care Charges/Coding Visit Charges Inpatient E&M: 06663 Disch Hosp
== END 2020-12-17 15:04 | disposition home or self-care (01) ==
LOC: ED 17:36 → MS3 17:55
PROVIDERS: Admitting Provider Family Medicine; Emergency Provider Emergency Medicine; PCP Family Medicine; Visit Provider Student in an Organized Health Care Education/Training Program
DX: J18.9 Pneumonia, unspecified organism (principal); I25.10 Atherosclerotic heart disease of native coronary artery without angina pectoris; K21.9 Gastro-esophageal reflux disease without esophagitis; E78.5 Hyperlipidemia, unspecified; I10 Essential (primary) hypertension; M41.9 Scoliosis, unspecified; G89.29 Other chronic pain; M54.5 Low back pain; Z79.899 Other long term (current) drug therapy; Z95.1 Presence of aortocoronary bypass graft; Z79.82 Long term (current) use of aspirin; K83.8 Other specified diseases of biliary tract; R06.02 Shortness of breath
CPT/HCPCS: 36415; 71045; 71275; 80048; 80053; 80076; 83735; 83880; 84484; 85025; 87070; 87205; 87426; 87449; 87633; 87641; 93005; 96361; 96365; 96366; 96372; 96375; 96376; 99218; 99251; 99285; J7030; Q9967; A4216; G0378; G0463

== ENCOUNTER 2021-02-22 12:56 | Observation (INO) | payer MEDICARE, SELFPAY ==
[2021-02-22] VITALS (14 sets, daily range): BP systolic 140–177; BP diastolic 63–153; PULSE 62–79; RESP 14–22; TEMP 35.6–36.9; O2SAT 97–100; BMI 27.1; BMI 26.4
--- NOTE | 2021-02-22 13:05 | CT_ITS ---
HISTORY: STROKE. TECHNIQUE: Multiple axial images were obtained of the brain without intravenous contrast. A radiation dose optimization technique was used for this scan. # of images incl. paperwork: 242. COMPARISON: None. FINDINGS: BRAIN PARENCHYMA:Multiple small foci and zones of low attenuation in the cerebral white matter most compatible with chronic small vessel ischemic gliosis. INTRACRANIAL HEMORRHAGE: No acute intracranial hemorrhage. CSF SPACES/MASS EFFECT: Diffuse atrophy with compensatory ventricular enlargement. No midline shift or other significant mass effect. ORBITS: Unremarkable. CALVARIUM: Intact. Incompletely imaged fractures of the anterior and posterior C1 ring. PARANASAL SINUSES AND MASTOID AIR CELLS: Clear. ASPECTS Score for Acute Strokes: 10. CT/STROKE Brain/Head without Cont IMPRESSION: No acute intracranial process identified. Chronic small vessel ischemic gliosis. Nondisplaced C1 fractures, likely chronic. Individualized dose optimization techniques were used for this CT. at 1319 Reported and signed by: Yadira Hines MD N.B. : The above Results were Read Back by Yadira Hines MD to Chadd Recinos MD, and understanding confirmed on 02/22/2021 13:24:37 (ET). Electronically Signed: Yadira Hines MD at 13:18 EDT Tel , Service support ,
--- NOTE | 2021-02-22 13:05 | EKG12_ITS ---
Test Reason : STROKE Blood Pressure : / mmHG Vent. Rate : 068 BPM Atrial Rate : 068 BPM P-R Int : 182 ms QRS Dur : 102 ms QT Int : 440 ms P-R-T Axes : 000 023 081 degrees QTc Int : 467 ms Normal sinus rhythm Normal ECG Confirmed by ROSIE BROOKS, MAYRA ([id number]), movie editor XIAO HURT ([id number]) on 02/27/2021 8:25:46 AM Referred By: Confirmed By:MAYRA VELEZ MD
--- NOTE | 2021-02-22 13:05 | RAD_ITS ---
STUDY: X-RAY CHEST REASON FOR EXAM: Female, 70 years old. Neuro deficit, acute, stroke suspected TECHNIQUE: Single AP portable view of the chest. COMPARISON: Comparison is made with prior study 12/15/2020. FINDINGS: EKG electrodes are seen. There is elevation of the right hemidiaphragm. Stable mild increased markings at the lung bases suggestive of atelectasis and/or scarring. There is no demonstrated pleural abnormality. Sternal cerclage wires and vascular clips are present from a prior sternotomy and coronary artery bypass graft procedure (CABG). Normal mediastinum and lynn. Normal visualized pulmonary arteries. There is atherosclerotic calcification of the aortic arch with tortuosity. There are diffuse degenerative changes of the visualized thoracic spine. Normal visualized ribs, clavicles, and shoulders. There is no demonstrated abnormality of the visualized soft tissue structures of the upper abdomen. RAD/Chest 1 View IMPRESSION: Stable mild increased markings at the lung bases suggestive of bibasilar atelectasis and/or scarring. Electronically Signed: Milan Pino MD at 14:12 EDT , Service support ,
--- NOTE | 2021-02-22 13:07 | EDS_ITS ---
HPI History of Present Illness Chief Complaint: Neuro S/Sx Narrative Narrative: Patient presents 1 hour after onset of left facial droop. She has no speech difficulty she has no vision changes or double vision she has no arm or leg weakness or sensory deficits. She has no change in taste or smell. [facility] Medical History Essential hypertension GERD (gastroesophageal reflux disease) History of back pain HLD (hyperlipidemia) Pinched vertebral nerve Postoperative atrial fibrillation (11/10/20) Scoliosis Home Medications pantoprazole 40 mg PO DAILY 11/02/20 [History Last Taken 12/15/20] tramadol 100 mg PO TID PRN 11/02/20 [History Last Taken 12/15/20] aspirin 81 mg PO DAILY@0800 #1 tab 11/03/20 [Rx Last Taken 12/15/20] rosuvastatin 20 mg PO QHS 12/15/20 [History Last Taken 12/14/20] valsartan 320 mg PO DAILY 12/15/20 [History Last Taken 12/15/20] chlorthalidone 25 mg tablet 25 mg PO DAILY 02/02/21 [History Last Taken Unknown] labetalol 200 mg tablet 200 mg PO BID tab 02/02/21 [History Last Taken Unknown] ferrous sulfate 325 mg PO BID 02/22/21 [History Last Taken Unknown] Allergy/AdvReac Type Severity Reaction Status Date / Time levofloxacin Allergy Severe leg pain Verified 02/02/21 13:33 amiodarone Allergy mental Verified 02/02/21 15:31 confusion Penicillins Allergy Unknown Verified 02/02/21 13:33 Sulfa (Sulfonamide Allergy Rash Verified 02/02/21 13:33 Antibiotics) lorazepam [From Ativan] AdvReac I went Verified 02/02/21 13:33 crazy Family History Mother Alcoholism Father Hypertension Brother Diabetes Sister Diabetes Hypertension Sister No problems noted. Son Hypertension Other Kidney disease Surgical History H/O coronary artery bypass surgery (11/08/20) History of appendectomy History of cholecystectomy History of left heart catheterization (11/03/20) Social History household members: spouse Smoking Status: Never smoker alcohol intake: never substance use type: does not use ROS ROS ED ROS Narrative Past medical history: Reviewed, includes a recent 5 vessel bypass, hypertension, hyperlipidemia. Medications: Reviewed Social history: Noncontributory Review of systems: All systems negative except as indicated General: No fever Eyes: No visual changes ENT: No upper airway congestion, normal voice Neck: No neck pain Cardiovascular: No chest pain Respiratory: No shortness of breath or cough Gastrointestinal: No abdominal pain, nausea vomiting or diarrhea Genitourinary: No dysuria Musculoskeletal: Denies myalgias no difficulty with ambulation Skin: No rash Neurological: Left-sided facial droop Psych: No recent behavioral changes Hematologic: No easy bleeding or easy bruising EXAM Physical Exam Narrative Exam Narrative: Physical exam General: Well nourished, Well developed, No Acute Distress Head: Normocephalic, Atraumatic Eyes: Conjunctiva not pale ENT: Moist mucous membranes Neck: Supple, Nontender, No lymphadenopathy Cardiovascular: Regular rate, Regular rhythm Respiratory: No distress, CTA bilaterally Abdomen: Soft, Nontender, Nondistended Back: Nontender, Normal Inspection. Negative for: CVA tenderness Extremities: Nontender, No edema Skin: Normal color, No rash Neurological: Alert, Normal Strength, Normal Sensation. NIH stroke scale is 1 for subtle facial droop. It is very difficult to tell if there is any forehead involvement or not. There is no tongue deviation, she can close her eyes fully. There are no sensory deficits. Psychological: Normal affect Const Vital Signs: 02/22/21 12:57 02/22/21 13:03 02/22/21 13:09 Temperature 96.0 F L Temperature Source Temporal Pulse Rate 75 74 Respiratory Rate 16 16 Blood Pressure 177/64 H 177/76 H Blood Pressure Mean 101 109 Pulse Ox 98 100 100 Oxygen Delivery Method Room Air Room Air Room Air 02/22/21 13:12 02/22/21 13:25 Temperature Temperature Source Pulse Rate 74 74 Respiratory Rate 16 16 Blood Pressure 177/76 H 177/76 H Blood Pressure Mean 109 109 Pulse Ox 100 100 Oxygen Delivery Method Room Air Room Air MDM MDM MDM Narrative Medical decision making narrative: I did call a stroke team since the patient's symptoms were consistent with an acute stroke however they are very minor facial droop, between the stroke neurologist and myself we cannot appreciate any forehead involvement therefore we will admit for MRI. Lab Data Labs: Laboratory Results - last 24 hr 02/22/21 02/22/21 02/22/21 13:02 13:02 13:02 WBC 6.1 RBC 4.08 L Hgb 10.5 L Hct 34.0 L MCV 83.3 MCH 25.7 L MCHC 30.9 L RDW Std Deviation 58.6 H RDW Coeff of Douglas 19.6 H Plt Count 255 MPV 12.2 H Immature Gran % (Auto) 0.300 Neut % (Auto) 71.1 H Lymph % (Auto) 14.4 L Clark % (Auto) 5.9 Eos % (Auto) 7.8 H Baso % (Auto) 0.5 Absolute Neuts (auto) 4.3 Absolute Lymphs (auto) 0.87 Nucleated RBC % 0 PT 12.2 INR 1.0 APTT 33.3 Sodium 137 Potassium 3.8 Chloride 101 Carbon Dioxide 29.0 Anion Gap 7 BUN 25 H Creatinine 1.32 H Estim Creat Clear Calc 27.67 Est GFR (MDRD) Af Amer 51 L Est GFR (MDRD) Non-Af 42 L BUN/Creatinine Ratio 18.9 Glucose 131 H Calcium 8.4 L Troponin I High Sens 10 Radiography Diagnostic Testing: Clinical Impression(s) from Imaging Studies Chest X-Ray 02/22/21 13:05 IMPRESSION: Stable mild increased markings at the lung bases suggestive of bibasilar atelectasis and/or scarring. Electronically Signed: Milan Pino MD at 14:12 EDT , Service support , Head/Neck CTA 02/22/21 13:15 IMPRESSION: No evidence for occlusion in the [place] region. 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 No evidence for high-grade stenosis or occlusion in the carotid or vertebral arteries of the neck. Chronic and ununited nondisplaced C1 fractures. Individualized dose optimization techniques were used for this CT. at 1341 Reported and signed by: Yadira Hines MD N.B. : The above Results were Read Back by Yadira Hines MD to Chadd Recinos MD, and understanding confirmed on 02/22/2021 13:41:27 (ET). Electronically Signed: Yadira Hines MD at 13:40 EDT Tel , Service support , ADDENDUM: 02/22/21 1348 IMPRESSION: No evidence for occlusion in the [place] region. 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 No evidence for high-grade stenosis or occlusion in the carotid or vertebral arteries of the neck. Chronic and ununited nondisplaced C1 fractures. Individualized dose optimization techniques were used for this CT. at 1341 Reported and signed by: Yadira Hines MD N.B. : The above Results were Read Back by Yadira Hines MD to Chadd Recinos MD, and understanding confirmed on 02/22/2021 13:41:27 (ET). Electronically Signed: Yadira Hines MD at 13:40 EDT Tel , Service support , Discharge Plan Triage Chief Complaint: Neuro S/Sx ED Provider: Chadd Recinos Dx/Rx/DC Orders Clinical Impression: TIA (transient ischemic attack) Prescriptions: No Action labetalol 200 mg tablet 200 mg PO BID RF: 0 tramadol 50 mg tablet 100 mg PO TID PRN (Reason: Pain) RF: 0 pantoprazole 40 mg Tablet,Delayed Release (Dr/Ec) 40 mg PO DAILY RF: 0 aspirin 81 mg Tablet,Delayed Release (Dr/Ec) 81 mg PO DAILY@0800 Qty: 1 RF: 0 chlorthalidone 25 mg tablet 25 mg PO DAILY RF: 0 valsartan 320 mg Tablet 320 mg PO DAILY RF: 0 rosuvastatin 20 mg Tablet 20 mg PO QHS RF: 0 ferrous sulfate 325 mg (65 mg iron) Tablet 325 mg PO BID RF: 0 Primary Care Provider: Elroy Wellington Referrals: Elroy Wellington MD [Primary Care Provider] - Disposition Disposition: Acute Care Hospital [facility]
--- NOTE | 2021-02-22 13:15 | CT_ITS ---
HISTORY: STROKE. TECHNIQUE: Routine [place]/brain and carotid CT angiogram protocol was performed with IV contrast. Nascet criteria using the distal ICAs for comparison were used for evaluation of stenoses. 2D/3D reconstructions were reviewed. A radiation dose optimization technique was used for this scan. IV Contrast dosage and agent: 100 mL [id number] IV. Number of images including paperwork: 1938. COMPARISON: CT head same day. FINDINGS: CTA head- ICAs: At least moderate calcified plaque at both carotid siphons. No significant stenosis at the intracranial/visualized segments. ACAs: No significant stenosis at the visualized segments. MCAs: No significant stenosis at the visualized segments. building maintenance worker: No significant stenosis at the visualized segments. BASILAR ARTERY: No significant stenosis. VERTEBRAL ARTERIES: Calcified and noncalcified plaque in the intracranial right vertebral artery with 60-70% stenosis. Calcified plaque in the intracranial left vertebral artery with 60-70% stenosis. No evidence of intracranial aneurysm or vascular malformation. CTA neck- RIGHT CCA/RIGHT ICA: Calcified plaque with a 15% stenosis at the common carotid bifurcation and origin of the internal carotid artery. No occlusion or significant stenosis. LEFT CCA/ICA: Mild calcified plaque at the common carotid bifurcation and origin of the internal carotid artery with less than 30% stenosis. No occlusion, significant stenosis or dissection. RIGHT VERTEBRAL ARTERY: No occlusion, significant stenosis or dissection. LEFT VERTEBRAL ARTERY: Calcified and noncalcified plaque at the origin resulting in mild stenosis. Calcified plaque distally with approximately 50% stenosis. No occlusion or dissection. AORTIC ARCH AND BRANCHES: Mild atherosclerosis. OTHER: Nondisplaced fractures of the anterior and posterior arches of C1 with well-corticated margins. Postoperative changes in the mediastinum. CT/STROKE CTA Head AND Neck W/Con IMPRESSION: No evidence for occlusion in the [place] region. 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 No evidence for high-grade stenosis or occlusion in the carotid or vertebral arteries of the neck. Chronic and ununited nondisplaced C1 fractures. Individualized dose optimization techniques were used for this CT. at 1341 Reported and signed by: Yadira Hines MD N.B. : The above Results were Read Back by Yadira Hines MD to Chadd Recinos MD, and understanding confirmed on 02/22/2021 13:41:27 (ET). Electronically Signed: Yadira Hines MD at 13:40 EDT Tel , Service support ,
[2021-02-22 13:23] LABS: Prothrombin Time (Protime)PT. 12.2 SECONDS (11.7-14.9)
[2021-02-22 13:24] LABS: Partial Thromboplast Time 33.3 Seconds (24.1-36.2)
[2021-02-22 13:25] LABS: Absolute Lymphocyte Count 0.87 X10^3/uL (0.83-4.51); Absolute Neutrophil Count 4.3 X10^3/uL (2.0-7.7); Basophil# 0.03 X10^3/uL; Basophil% 0.5 % (0-1); Eosinophil# 0.47 X10^3/uL; Eosinophils% 7.8 % (0-5); Hemoglobin 10.5 g/dL (12.0-15.0); Lymphocyte # 0.87 X10^3/ul (0.83-4.51); Lymphocyte % 14.4 % (19-41); Mean Corp Hgb Conc 30.9 g/dL (32-36); Mean Corpuscular Hgb 25.7 pg (27.0-32.0); Mean Corpuscular Volume 83.3 fL (81-99); Mean Platelet Vol. 12.2 fl (6.2-12.0); Monocyte# 0.36 X10^3/uL; Monocyte% 5.9 % (0-10); NRBC Flagged by Analyzer 0 % (0-5); Neutrophil # 4.31 X10^3/uL (2.7-7.7); Neutrophil % 71.1 % (47-70); Platelet Count 255 K/mm3 (150-450); RBC Distribution Width CV 19.6 % (11.6-14.6); RBC Distribution Width SD 58.6 fl (35.1-43.9); Red Blood Count 4.08 M/mm3 (4.2-5.4); White Blood Count 6.1 K/mm3 (4.4-11.0)
[2021-02-22 13:30] LABS: Anion Gap 7 (5-15); BUN 25 mg/dL (7-18); BUN/Creat Ratio 18.9 RATIO (10-20); Calcium,Total 8.4 mg/dL (8.5-10.1); Chloride 101 mmol/L (98-107); Creatinine, Serum 1.32 mg/dL (0.55-1.02); EST Glomerular Filtration Rate 42 mL/min (>60); Est Glom Filt Rate - Afr Amer 51 mL/min (>60); Estimated Creatinine Clearance 27.67 ml/min; Glucose 131 mg/dL (74-106); Potassium 3.8 mmol/L (3.5-5.1); Sodium Level 137 mmol/L (136-145); Troponin-I HS 10 pg/mL (3.0-54.0)
--- NOTE | 2021-02-22 14:28 | CM.ED ---
SW Note SW referral reason: Stroke Alert SW referral source: Case Find SW spoke to patient's mother in law and provided her support. SW voiced that this commercial insurance underwriter remains available if additional needs arise. Plan: To be determined. Emotional support provided Renetta ARELLANO
--- NOTE | 2021-02-22 14:29 | ECHOL_ITS ---
Reason For Study: TIA/CVA Procedure This was a limited 2D transthoracic echocardiogram. Exam performed portable in patient room. Left Ventricle Normal LV size. Left ventricular systolic function is normal. The estimated ejection fraction is 65 %. No regional wall motion abnormalities noted. Right Ventricle Normal RV size. Normal systolic function. Atria Normal left atrium. Normal right atrium. Mitral Valve There is mild mitral annular calcification. Tricuspid Valve Normal tricuspid valve. Aortic Valve Trisinus/trileaflet aortic valve. Mild focal aortic valve calcification. Pulmonic Valve Normal pulmonic valve. Great Vessels Normal aortic root. The pulmonary artery is normal size. Normal inferior vena cava. Pericardium/Pleural No pericardial effusion. Medication Recent HUMBERTO was NEGATIVE for PFO/ASD. MMode/2D Measurements & Calculations LVIDd: 3.9 cm IVSd: 1.3 cm Ao root diam: 3.0 cm LVIDs: 2.3 cm LVPWd: 1.1 cm RVDd: 3.1 cm FS: 42.3 % LAV(MOD-bp): 43.3 ml LVAd ap4: 22.4 cm2 LVAd ap2: 27.3 cm2 LAV(MOD-bp) Indexed: 27.1 ml/m2 LVLd ap4: 7.8 cm LVLd ap2: 8.1 cm LAV(MOD-sp2): 55.2 ml EDV(MOD-sp4): 51.5 ml EDV(MOD-sp2): 78.4 ml LAV(MOD-sp4): 34.1 ml EDV(sp4-el): 54.5 ml EDV(sp2-el): 78.4 ml LVAs ap4: 11.9 cm2 LVAs ap2: 13.3 cm2 LVLs ap4: 7.0 cm LVLs ap2: 6.9 cm ESV(MOD-sp4): 17.6 ml ESV(MOD-sp2): 22.9 ml ESV(sp4-el): 17.0 ml ESV(sp2-el): 21.8 ml EF(MOD-sp4): 65.8 % EF(MOD-sp2): 70.8 % EF(sp4-el): 68.7 % SV(MOD-sp4): 33.9 ml SV(MOD-sp2): 55.5 ml SV(sp4-el): 37.4 ml LA A4 area: 14.0 cm2 LA dimension(2D): 4.3 cm RA A4 area: 9.5 cm2 ECHO/Echo, Limited Study Interpretation Summary Normal LV size. Left ventricular systolic function is normal. The estimated ejection fraction is 65 %. There is mild mitral annular calcification. Mild focal aortic valve calcification. Ordering Physician: Varsha Sales Referring Physician: Elroy Wellington MD Performed By: Xenia Edwards RDCS
--- NOTE | 2021-02-22 14:29 | MRI_ITS ---
HISTORY: TIA, facial droop. TECHNIQUE: Multiplanar and multisequence MR images of the brain were obtained without gadolinium. # of images incl. paperwork: 278. COMPARISON: CT same day. FINDINGS: BRAIN PARENCHYMA: Moderate T2 FLAIR hyperintense signal in the bilateral cerebral white matter. No abnormal focus of restricted diffusion. INTRACRANIAL HEMORRHAGE: No acute intracranial hemorrhage. CSF SPACES: Mild generalized volume loss. No midline shift or other significant mass effect. No extra-axial fluid collection. VASCULAR SYSTEM: Major intracranial flow-voids maintained. ORBITS: Left lens resection. PARANASAL SINUSES AND MASTOID AIR CELLS: Clear. MRI/Brain without Contrast IMPRESSION: No evidence for acute infarct. Chronic small vessel ischemic gliosis. at 1619 Reported and signed by: Yadira Hines MD Electronically Signed: Yadira Hines MD at 16:18 EDT Tel , Service support ,
--- NOTE | 2021-02-22 14:35 | HP.PCM.HOS_ITS ---
HPI - General General Date of Admission: 02/22/21 Date of Service: 02/22/21 Chief Complaint: Left facial droop HPI Narrative NEHEMIAS VARELA, is a 70 F who presented to the emergency department at [facility] on 02/22/2021 with left-sided facial droop. She stated it started about 10:00 this morning and has been persistent since that time. There seems to be forehead sparing at this time. She denies any other symptoms includ ing tingling numbness or weakness in any other limbs or portion of her face. Her sensation is intact. She denies any specific knowledge of her family history other than alcoholism and high blood pressure as she does not regularly see her family. She did have a recent coronary bypass graft in November 2020 and states she has been doing well with this. The emergency department her vital signs were stable other than hypertension. Her CBC showed a mild chronic normocytic anemia that is stable. Her coags were normal. Her BMP showed normal lecture lites but her serum creatinine is elevated 1.32. It appears her baseline serum creatinine is 0.6-0.9. Her glucose is mildly elevated at 131 however this is not fasting. Troponin was obtained and was normal at 10. She had a CT of her brain which showed no acute cranial process, chronic small vessel ischemic gliosis, and nondisplaced C1 fracture that appears to be chronic. CT a of her head was performed and showed no pathology except in her b ilateral vertebral arteries which show 60 to 70% stenosis bilaterally. Her EKG shows normal sinus rhythm with no ST-T wave findings consistent with ischemia. Her chest x-ray shows mild stable increased markings in the lung bases consistent with scarring. On exam her NIH has been 1 throughout her entire stay for left facial droop including the second and third branches of the facial nerve. She will be admitted to PCU for TIA work-up. PENDING SALE TO [facility] Medical History Essential hypertension GERD (gastroesophageal reflux disease) History of back pain HLD (hyperlipidemia) Pinched vertebral nerve Postoperative atrial fibrillation (11/10/20) Scoliosis Home Medications pantoprazole 40 mg PO DAILY 11/02/20 [History Last Taken 12/15/20] tramadol 100 mg PO TID PRN 11/02/20 [History Last Taken 12/15/20] aspirin 81 mg PO DAILY@0800 #1 tab 11/03/20 [Rx Last Taken 12/15/20] rosuvastatin 20 mg PO QHS 12/15/20 [History Last Taken 12/14/20] valsartan 320 mg PO DAILY 12/15/20 [History Last Taken 12/15/20] chlorthalidone 25 mg tablet 25 mg PO DAILY 02/02/21 [History Last Taken Unknown] labetalol 200 mg tablet 200 mg PO BID tab 02/02/21 [History Last Taken Unknown] ferrous sulfate 325 mg PO BID 02/22/21 [History Last Taken Unknown] Allergy/AdvReac Type Severity Reaction Status Date / Time levofloxacin Allergy Severe leg pain Verified 02/02/21 13:33 amiodarone Allergy mental Verified 02/02/21 15:31 confusion Penicillins Allergy Unknown Verified 02/02/21 13:33 Sulfa (Sulfonamide Allergy Rash Verified 02/02/21 13:33 Antibiotics) lorazepam [From Ativan] AdvReac I went Verified 02/02/21 13:33 jose gzlori Family History Mother Alcoholism Father Hypertension Brother Diabetes Sister Diabetes Hypertension Sister No problems noted. Son Hypertension Other Kidney disease Surgical History H/O coronary artery bypass surgery (11/08/20) History of appendectomy History of cholecystectomy History of left heart catheterization (11/03/20) Social History household members: spouse Smoking Status: Never smoker alcohol intake: never substance use type: does not use ROS Constitutional Constitutional: Denies anorexia, change in weight, chills, fatigue, fever(s), malaise, night sweats, weakness or other Eyes Eyes: Denies blurry vision, change in eye color, change in vision, discharge from eye(s), double vision, erythema, eye pain, loss of vision or other ENT HEENT: Denies abnormal hearing, dysphagia, ear pain, epistaxis, headache(s), hearing loss, nasal congestion, nasal discharge, post nasal drip, sinus pressure, sore throat or other Cardiovascular Cardiovascular: Denies chest pain, claudication, dyspnea on exertion, edema, lightheadedness, orthopnea, palpitations, paroxysmal nocturnal dyspnea, rapid heart rate, syncope or other Respiratory/Chest Respiratory/Chest: Denies cough, dyspnea, excessive phlegm production, hemoptysis, productive cough, shortness of breath at rest, shortness of breath with exertion, wheezing or other Gastrointestinal Gastrointestinal: Denies abdominal pain, coffee ground emesis, constipation, diarrhea, dyspepsia, hematemesis, hematochezia, loose stools, melena, nausea, vomiting or other Genitourinary Genitourinary: Denies burning urination, difficulty urinating, dysuria, hematuria, nocturia, urinary frequency, urinary hesitancy, urinary incontinence, urinary urgency or other Musculoskeletal Musculoskeletal: Denies arthralgias, back pain, joint pain, joint stiffness, joint swelling, myalgias, neck pain or other Neurologic Neurologic: Reports other Details: Left facial droop ; Denies abnormal gait, abnormal speech, confusion, disequilibrium, dizziness, focal weakness, headache(s), numbness, paresthesias, seizure-like activity, seizures, syncope, tingling or tremor(s) Psychiatric Psychiatric: Denies anxiety, depression, homicidal ideation, suicidal ideation or other Endocrine Endocrinology: Denies change in body appearance, cold intolerance, excessive sweating, heat intolerance, polydipsia, polyuria or other Hematologic/Lymphatic Hematologic/Lymphatic: Denies anemia, easy bleeding, easy bruising, lympha denopathy or other Allergic/Immunologic Allergic/Immunologic: Denies rhinitis, hives, eczemia, asthma or other Vital Signs Vital Signs Vital Signs: 02/22/21 12:57 02/22/21 13:03 02/22/21 13:09 Temperature 96.0 F L Temperature Source Temporal Pulse Rate 75 74 Respiratory Rate 16 16 Blood Pressure 177/64 H 177/76 H Blood Pressure Mean 101 109 Pulse Ox 98 100 100 Oxygen Delivery Method Room Air Room Air Room Air 02/22/21 13:12 02/22/21 13:25 02/22/21 14:17 Temperature Temperature Source Pulse Rate 74 74 70 Respiratory Rate 16 16 16 Blood Pressure 177/76 H 177/76 H 144/90 H Blood Pressure Mean 109 109 108 Pulse Ox 100 100 100 Oxygen Delivery Method Room Air Room Air Room Air Weight Weight: 62.9 kg Body Mass Index (BMI) 27.1 Physical Exam Const alert, oriented x3, no apparent distress and average body habitus Constitutional Narrative: Slightly overweight older white female sitting up in bed, at bedside, appears nontoxic, conversive and very pleasant General Appearance: cooperative HEENT normocephalic, head/scalp atraumatic, hearing grossly normal bilaterally, moist oral mucous membranes and oropharynx normal HEENT Narrative: Dentures in place, Mallampati 3 Mouth: oral and palatal mucosa normal Eyes PERRL, EOMs intact bilaterally and conjunctivae normal Eyes Narrative: No scleral icterus Neck no lymphadenopathy, supple, no JVD and no carotid bruits Neck Narrative: Trachea midline with no thyroid enlargement Resp normal respiratory effort, no retractions, no use of accessory muscles and clear to auscultation bilaterally Auscultation: Negative for crackles, rales, rhonchi or wheezes Cardio regular rate, regular rhythm, S1 normal heart sound, S2 normal heart sound, no murmurs, no rub, no gallops, no clicks and no JVD GI normal to inspection, nondistended, normoactive bowel sounds, soft to palpation, non-tender and non-distended Extremity no clubbing, cyanosis or edema Peripheral Pulses: Yes pulses 2+ throughout Skin no rashes or lesions noted, no wounds, skin turgor normal, no jaundice, no petechiae and no mottling Neuro oriented x3, moves all extremities and no focal motor deficits Neuro Narrative: Left facial droop in the second and third branches of the left facial nerve with sparing at the first branch, reflexes 2+ throughout Sensorium / Orientation: awake and alert Coordination / Balance: evjgja-[id number]-vaof test normal and [id number] test normal Speech: speech normal Motor Exam: strength 5/5 throughout Psych affect normal Results Lab / Micro Data Result Diagrams: 02/22/21 13:02 02/22/21 13:02 Labs: Laboratory Results - last 24 hr 02/22/21 13:02: WBC 6.1, RBC 4.08 L, Hgb 10.5 L, Hct 34.0 L, MCV 83.3, MCH 25.7 L, MCHC 30.9 L, RDW Std Deviation 58.6 H, RDW Coeff of [place] 19.6 H, Plt Count 255, MPV 12.2 H, Immature Gran % (Auto) 0.300, Neut % (Auto) 71.1 H, Lymph % (Auto) 14.4 L, [place] % (Auto) 5.9, Eos % (Auto) 7.8 H, Baso % (Auto) 0.5, Absolute Neuts (auto) 4.3, Absolute Lymphs (auto) 0.87, Nucleated RBC % 0 02/22/21 13:02: PT 12.2, INR 1.0, APTT 33.3 02/22/21 13:02: Sodium 137, Potassium 3.8, Chloride 101, Carbon Dioxide 29.0, Anion Gap 7, BUN 25 H, Creatinine 1.32 H, Estim Creat Clear Calc 27.67, Est GFR (MDRD) Af Amer 51 L, Est GFR (MDRD) Non-Af 42 L, BUN/Creatinine Ratio 18.9, Glucose 131 H, Calcium 8.4 L, Troponin I High Sens [address] 02/22/21 13:05 IMPRESSION: No acute intracranial process identified. Chronic small vessel ischemic gliosis. Nondisplaced C1 fractures, likely chronic. Individualized dose optimization techniques were used for this CT. at 1319 Reported and signed by: Yadira Hines MD N.B. : The above Results were Read Back by Yadira Hines MD to Chadd Recinos MD, and understanding confirmed on 02/22/2021 13:24:37 (ET). Electronically Signed: Yadira Hines MD at 13:18 EDT Tel , Service support , Chest X-Ray 02/22/21 13:05 IMPRESSION: Stable mild increased markings at the lung bases suggestive of bibasilar atelectasis and/or scarring. Electronically Signed: Milan Pino MD at 14:12 EDT , Service support , Head/Neck CTA 02/22/21 13:15 IMPRESSION: No evidence for occlusion in the [place]. 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 No evidence for high-grade stenosis or occlusion in the carotid or vertebral arteries of the neck. Chronic and ununited nondisplaced C1 fractures. Individualized dose optimization techniques were used for this CT. at 1341 Reported and signed by: Yadira Hines MD N.B. : The above Results were Read Back by aYdira Hines MD to Chadd Recinos MD, and understanding confirmed on 02/22/2021 13:41:27 (ET). Electronically Signed: Yadira Hines MD at 13:40 EDT Tel , Service support , ADDENDUM: 02/22/21 1348 IMPRESSION: No evidence for occlusion in the [place]. 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 No evidence for high-grade stenosis or occlusion in the carotid or vertebral arteries of the neck. Chronic and ununited nondisplaced C1 fractures. Individualized dose optimization techniques were used for this CT. at 1341 Reported and signed by: Yadira Hines MD N.B. : The above Results were Read Back by Yadira Hines MD to Chdad Recinos MD, and understanding confirmed on 02/22/2021 13:41:27 (ET). Electronically Signed: Yadira Hines MD at 13:40 EDT Tel , Service support , Assessment & Plan Assessment/Plan (1) Facial droop: (2) Essential hypertension: PLAN: Acute left-sided facial droop -Only in second and third branches of the facial nerve on the left -High suspicion for Diaz's palsy but with sparing of the first branch need to rule out stroke/TIA -Continue statin -Continue aspirin -As needed's for blood pressure but will let patient run elevated at this time given concerns for stroke/TIA -Lipids -Check hemoglobin A1c -Check echocardiogram -MRI pending -SOC consult tomorrow UBALDO -Serum creatinine 1.32 on admission -Baseline creatinine 0.65-0.8 -IV hydration with 1 L fluids and repeat BMP in a.m. Hypertension -Continue home medications -As needed's available -Allow for some permissive hypertension Hyperlipidemia -Check lipids -Continue Crestor CAD -Status post four-vessel CABG 11/21/2020 -Continue home medications -No current chest pain GERD -Continue PPI Chronic normocytic anemia -Hemoglobin stable -We will continue to monitor Chronic pain -Continue home as needed Ultram DVT prophylaxis -Lovenox 40 mg daily -SCDs CODE STATUS -Full code
--- NOTE | 2021-02-22 15:45 | ED.RN ---
Patient off unit at 1455 for MRI, returned to ED room 1 at 1545
[2021-02-22 15:46] LABS: Bedside Glucose 138 mg/dL (70-110)
[2021-02-22 16:39] LABS: Troponin-I HS 11 pg/mL (3.0-54.0)
--- NOTE | 2021-02-22 17:34 | PCS.PANDOC ---
PANDEMIC DOCUMENTATION INITIATED: Date: 02/22/2021 Time: 1610
[2021-02-22] MEDS: 0.9% Saline Lock 10 ML Syringe IV (18:03)
[2021-02-22] MEDS: 0.9% Normal Saline 1,000 ML 75 ML IV (18:03)
[2021-02-22] MEDS: traMADol 50 MG Tablet 100 MG PO (18:09)
[2021-02-22] MEDS: Ferrous Sulfate 325 MG Tablet PO (18:11)
[2021-02-22] MEDS: Atorvastatin Calcium 40 MG Tablet PO (21:02)
[2021-02-22] MEDS: Labetalol 200 MG Tablet PO (21:02)
[2021-02-22] MEDS: traZODone 50 MG Tablet PO (23:25)
[2021-02-22] MEDS: Acetaminophen 325 MG Tablet 650 MG PO (23:31)
[2021-02-23] VITALS (8 sets, daily range): BP systolic 104–138; BP diastolic 61–75; PULSE 64–78; RESP 16; TEMP 36.6–36.7; O2SAT 96–98
[2021-02-23] MEDS: traMADol 50 MG Tablet 100 MG PO ×3 (00:45→13:10)
[2021-02-23] MEDS: Enoxaparin 30 MG/0.3 ML Syringe SC (05:26)
[2021-02-23 06:44] LABS: Absolute Lymphocyte Count 1.41 X10^3/uL (0.83-4.51); Absolute Neutrophil Count 1.8 X10^3/uL (2.0-7.7); Basophil# 0.02 X10^3/uL; Basophil% 0.5 % (0-1); Eosinophil# 0.42 X10^3/uL; Eosinophils% 10.3 % (0-5); Hematocrit 32.7 % (37-47); Lymphocyte # 1.41 X10^3/ul (0.83-4.51); Lymphocyte % 34.6 % (19-41); Mean Corp Hgb Conc 30.6 g/dL (32-36); Mean Corpuscular Hgb 25.6 pg (27.0-32.0); Mean Corpuscular Volume 83.8 fL (81-99); Monocyte# 0.42 X10^3/uL; Monocyte% 10.3 % (0-10); NRBC Flagged by Analyzer 0 % (0-5); Neutrophil # 1.78 X10^3/uL (2.7-7.7); Neutrophil % 43.8 % (47-70); POSITIVE MORPHOLOGY YES; Platelet Count 223 K/mm3 (150-450); RBC Distribution Width CV 20.3 % (11.6-14.6); RBC Distribution Width SD 61.8 fl (35.1-43.9); White Blood Count 4.1 K/mm3 (4.4-11.0)
[2021-02-23 06:52] LABS: Differential Indicated SCAN CRITERIA MET
[2021-02-23 07:14] LABS: Anisocytosis 2+; Ovalocyte 1+
[2021-02-23 07:23] LABS: ALB/GLOB Ratio 1.2 RATIO (0.9-2.4); AST(SGOT) 22 U/L (15-37); Alanine Aminotransfer ALT/SGPT 27 U/L (13-56); Alkaline Phosphatase 130 U/L (45-117); Anion Gap 5 (5-15); BUN 18 mg/dL (7-18); BUN/Creat Ratio 19.3 RATIO (10-20); Calcium,Total 8.3 mg/dL (8.5-10.1); Chloride 110 mmol/L (98-107); Cholesterol 132 mg/dL (200); Creatinine, Serum 0.93 mg/dL (0.55-1.02); EST Glomerular Filtration Rate 63 mL/min (>60); Est Glom Filt Rate - Afr Amer 76 mL/min (>60); Estimated Creatinine Clearance 39.28 ml/min; Globulin 2.5 g/dL (2.2-4.2); Glucose 113 mg/dL (74-106); High Density Lipoprotein 56 mg/dL; Magnesium 2.2 mg/dL (1.6-2.6); Phosphorus 2.6 mg/dL (2.5-4.9); Potassium 3.3 mmol/L (3.5-5.1); Protein, Total 5.5 g/dL (6.4-8.2); Sodium Level 141 mmol/L (136-145); Triglycerides 129 mg/dL; Very Low Density Lipoprotein 26 mg/dL (5-40)
[2021-02-23] MEDS: Aspirin E.C. 81 MG Tablet PO (08:18)
[2021-02-23] MEDS: Ferrous Sulfate 325 MG Tablet PO (08:18)
[2021-02-23] MEDS: Labetalol 200 MG Tablet PO (08:18)
[2021-02-23] MEDS: Pantoprazole Sodium 40 MG Tablet PO (08:18)
[2021-02-23] MEDS: Chlorthalidone 50 MG Tablet 25 MG PO (08:18)
[2021-02-23] MEDS: Losartan Potassium 100 MG Tablet PO (08:18)
--- NOTE | 2021-02-23 09:12 | TELEMED_ITS ---
SOC Telemed has confirmed receipt of a request for visit. This document confirms receipt of the order initiating the consult. To find the results of the consultation, please view the patient's reports for the scanned Telemed Consult.
[2021-02-23 09:23] LABS: Hemoglobin A1c 6.3 % (3.8-5.6)
[2021-02-23] MEDS: Acetaminophen 325 MG Tablet 650 MG PO (10:53)
--- NOTE | 2021-02-23 13:19 | CASEMGMT ---
SW completed a PHQ 9 with patient as she may have had a TIA. She scored a 0 which indicates no depression. She denied need for any counseling resources. Marybeth MARIE
--- NOTE | 2021-02-23 14:33 | PCM.DC.SUM ---
Providers Date of Admission: 02/22/21 Primary Care Physician: Dr. Elroy Wellington MD Reason For Visit: TIA Diagnosis Discharge Diagnosis (1) Facial droop: Status: Acute Code(s): R29.810 - Facial weakness (2) Essential hypertension: Status: Acute Code(s): I10 - Essential (primary) hypertension Medications at Discharge Home Medications pantoprazole 40 mg PO DAILY 11/02/20 tramadol 100 mg PO TID PRN 11/02/20 aspirin 81 mg PO DAILY@0800 #1 tab 11/03/20 rosuvastatin 20 mg PO QHS 12/15/20 valsartan 320 mg PO DAILY 12/15/20 chlorthalidone 25 mg tablet 25 mg PO DAILY 02/02/21 labetalol 200 mg tablet 200 mg PO BID tab 02/02/21 ferrous sulfate 325 mg PO BID 02/22/21 prednisone 10 mg PO DAILY #45 tab 02/23/21 Hospital Course Operations None Procedures 2-D Echocardiogram and - (MRI brain) Summary of Care Provided Minutes Spent on Discharge: 39 Hospital Course: NEHEMIAS VARELA, is a 70 F who presented to the emergency department at [facility] on 02/22/2021 with left-sided facial droop. She stated it started about 10:00 on the morning of admission and had been persistent since that time. There seemed to be forehead sparing at that time. She denied any other symptoms including tingling, numbness or weakness in any other limbs or portion of her face. Her sensation was intact. She denied any specific knowledge of her family history other than alcoholism and high blood pressure as she does not regularly see her family. She did have a recent coronary bypass graft in November 2020 and stated she had been doing well with this. The emergency department her vital signs were stable other than blood pressure elevations. Her CBC showed a mild chronic normocytic anemia that is stable. Her coags were normal. Her BMP showed normal electrolytes but her serum creatinine is elevated 1.32. It appears her baseline serum creatinine is 0.6-0.9. Her glucose is mildly elevated at 131 however this is not fasting. Troponin was obtained and was normal at 10. She had a CT of her brain which showed no acute cranial process, chronic small vessel ischemic gliosis, and nondisplaced C1 fracture that appears to be chronic. CT a of her head was performed and showed no pathology except in her bilateral vertebral arteries which show 60 to 70% stenosis bilaterally. Her EKG shows normal sinus rhythm with no ST-T wave findings consistent with ischemia. Her chest x-ray shows mild stable increased markings in the lung bases consistent with scarring. On exam her NIH has been 1 throughout her entire stay for left facial droop including the second and third branches of the facial nerve. The stroke neurologist did evaluate the patient with the ER physician and the suspicion was high for Diaz's palsy but given the sparing of the first branch of the facial nerve there was concerned that this could be stroke and she was admitted for further stroke work-up. An echocardiogram was performed and showed an EF of 65% with no regional wall motion abnormalities and no source of clot. An MRI of her brain was performed and showed no evidence of acute infarct but only chronic small vessel ischemic gliosis. Upon reevaluation on the a.m. of 02/23/2021 she did appear to have some mild involvement of the first branch of the facial nerve however it was very minimal on exam and I did have her reevaluated by neurology. 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 She was discharged home with 60 mg prednisone x5 days followed by a decrease in 5 mg daily after. We also gave her a patch for her left eye while she is sleeping. Her eye still closed and strength was decent at the time of discharge however I did notice some minimal weakness on exam. We recommend continue aggressive management of her stroke risk factors. I recommended she follow-up with her PCP within 1 week. Discharge diagnoses: Acute Diaz's palsy UBALDO-resolved Hypertension Hyperlipidemia Coronary artery disease status post coronary artery bypass grafting 11/21/2020 GERD Chronic normocytic anemia Chronic pain Physical Exam Const alert, oriented x3, no apparent distress and average body habitus Constitutional Narrative: Slightly overweight older white female lying in bed, room is dark, appears nontoxic, more quiet than yesterday and seems as if she has something on her mind General Appearance: cooperative, comfortable, well kempt and well developed Orientation / Consciousness: awake Exam Limitations: no limitations Nutritional Appearance: overweight HEENT normocephalic, head/scalp atraumatic, hearing grossly normal bilaterally, moist oral mucous membranes and oropharynx normal Eyes PERRL, EOMs intact bilaterally and conjunctivae normal Eyes Narrative: No scleral icterus Neck no lymphadenopathy, supple and no JVD Neck Narrative: Trachea midline with no thyroid enlargement Resp normal respiratory effort, no retractions, no use of accessory muscles and clear to auscultation bilaterally Auscultation: Negative for crackles, rales, rhonchi or wheezes Cardio regular rate, regular rhythm, S1 normal heart sound, S2 normal heart sound, no murmurs, no rub, no gallops, no clicks and no JVD GI normal to inspection, nondistended, normoactive bowel sounds, soft to palpation, non-tender and non-distended Extremity normal to inspection, full ROM and no clubbing, cyanosis or edema Skin no rashes or lesions noted, no wounds, skin turgor normal, no jaundice, no petechiae and no mottling Neuro oriented x3, moves all extremities and no focal motor deficits Neuro Narrative: Left facial droop in the second and third branches of the left facial nerve with very minimal weakness noted in the first branch of the left facial nerve, reflexes 2+ throughout Sensorium / Orientation: awake and alert Coordination / Balance: [id number] test normal and [id number] test normal Speech: speech normal Motor Exam: strength 5/5 throughout Psych Psych Narrative: Affect is flattened patient seems depressed but unwilling to talk to me with regards to her problems today. Weight / BMI Weight Weight: 61.4 kg Body Mass Index (BMI) 26.4 ABG / Lab / Microbiology Data Result Diagrams: 02/23/21 05:50 02/23/21 05:50 Laboratory: Laboratory Results - last 24 hr 02/22/21 13:02: POC Glucose 138 H 02/22/21 15:48: Troponin I High Sens 11 02/23/21 05:50: WBC 4.1 L, RBC 3.90 L, Hgb 10.0 L, Hct 32.7 L, MCV 83.8, MCH 25.6 L, MCHC 30.6 L, RDW Std Deviation 61.8 H, RDW Coeff of [place] 20.3 H, Plt Count 223, MPV 12.0, Immature Gran % (Auto) 0.500, Neut % (Auto) 43.8 L, Lymph % (Auto) 34.6, [place] % (Auto) 10.3 H, Eos % (Auto) 10.3 H, Baso % (Auto) 0.5, Absolute Neuts (auto) 1.8 L, Absolute Lymphs (auto) 1.41, Nucleated RBC % 0, Anisocytosis 2+, Ovalocytes 1+ 02/23/21 05:50: Sodium 141, Potassium 3.3 L, Chloride 110 H, Carbon Dioxide 26.0, Anion Gap 5, BUN 18, Creatinine 0.93, Estim Creat Clear Calc 39.28, Est GFR (MDRD) Af Amer 76, Est GFR (MDRD) Non-Af 63, BUN/Creatinine Ratio 19.3, Glucose 113 H, Calcium 8.3 L, Phosphorus 2.6, Magnesium 2.2, Total Bilirubin 0.30, AST 22, ALT 27, Alkaline Phosphatase 130 H, Total Protein 5.5 L, Albumin 3.0 L, Globulin 2.5, Albumin/Globulin Ratio 1.2, Triglycerides 129, Cholesterol 132, LDL Cholesterol 50, VLDL Cholesterol 26, HDL Cholesterol 56, TSH 64.10 H 02/23/21 05:50: Hemoglobin A1c 6.3 H Radiography Diagnostic Testing: Radiology Impression Brain MRI 02/22/21 14:29 IMPRESSION: No evidence for acute infarct. Chronic small vessel ischemic gliosis. at 1619 Reported and signed by: Yadira Hines MD Electronically Signed: Yadira Hines MD at 16:18 EDT Tel , Service support , Echocardiogram 02/22/21 14:29 Interpretation Summary Normal LV size. Left ventricular systolic function is normal. The estimated ejection fraction is 65 %. There is mild mitral annular calcification. Mild focal aortic valve calcification. Ordering Physician: Varsha Sales Referring Physician: Elroy Wellington MD Performed By: Xenia Edwards RDCS D/C Instructions Discharge Diet: Low fat / Low cholesterol Discharge Activity: Return to Normal Activity Meaningful Use Info Meaningful Use Diagnoses (Choose all that apply): None applicable Discharge Plan Admission Admit Date/Time: 02/22/21 14:24 Primary Reason for Your Visit: L Facial Droop Attending Provider: Varsha aSles Primary Care Provider: Elroy Wellington Instructions Patient Instructions: Diaz's Palsy Additional Instructions / Restrictions: -Complete the course of prednisone as directed for your Diaz's palsy -Patch your eye at night to prevent scratching your cornea as your eyelid may not completely closed as this progresses -Follow-up with your PCP in 1 week -No other medication changes Discharge Orders/Prescriptions Prescriptions: New prednisone 10 mg tablet 10 mg PO DAILY Qty: 45 RF: 0 Continued labetalol 200 mg tablet 200 mg PO BID RF: 0 tramadol 50 mg tablet 100 mg PO TID PRN (Reason: Pain) RF: 0 pantoprazole 40 mg Tablet,Delayed Release (Dr/Ec) 40 mg PO DAILY RF: 0 aspirin 81 mg Tablet,Delayed Release (Dr/Ec) 81 mg PO DAILY@0800 Qty: 1 RF: 0 chlorthalidone 25 mg tablet 25 mg PO DAILY RF: 0 valsartan 320 mg Tablet 320 mg PO DAILY RF: 0 rosuvastatin 20 mg Tablet 20 mg PO QHS RF: 0 ferrous sulfate 325 mg (65 mg iron) Tablet 325 mg PO BID RF: 0 Referrals / Follow Up: Elroy Wellington MD [Primary Care Provider] - In 1 Week (Hospital Follow-up for Diaz's Palsy) Disposition Disposition (needs filled in before D/C Order can be placed): Home, Self Care Charges/Coding Visit Charges Inpatient E&M: 77807 Disch Hosp
--- NOTE | 2021-02-23 14:53 | NURSING ---
Read and reviewed SN documentation. Reviewed plan of care with SN
--- NOTE | 2021-02-23 15:13 | CASEMGMT ---
This RN CM to room with GARZA form, explanation done-pt voices understanding, and signs GARZA form. Pt is A/Ox4. Original to chart and copy to pt. All pt's questions answered. Pt voices no further questions/concerns/needs. SStaten RN CM
== END 2021-02-23 14:37 | disposition home or self-care (01) ==
LOC: ED 14:28 → PCU 14:45
PROVIDERS: Admitting Provider Internal Medicine; Emergency Provider Emergency Medicine; PCP Family Medicine; Visit Provider Internal Medicine
DX: G51.0 Bell's palsy (principal); E78.5 Hyperlipidemia, unspecified; I10 Essential (primary) hypertension; N17.9 Acute kidney failure, unspecified; Z23 Encounter for immunization; G89.29 Other chronic pain; I25.10 Atherosclerotic heart disease of native coronary artery without angina pectoris; K21.9 Gastro-esophageal reflux disease without esophagitis; D64.9 Anemia, unspecified; R29.701 NIHSS score 1; M41.9 Scoliosis, unspecified; Z79.899 Other long term (current) drug therapy; Z79.82 Long term (current) use of aspirin; Z95.1 Presence of aortocoronary bypass graft
CPT/HCPCS: 36415; 70450; 70496; 70498; 70551; 71045; 80048; 80053; 80061; 82962; 83036; 83735; 84100; 84443; 84484; 85025; 85610; 85730; 93005; 93308; 96360; 96361; 96372; 99218; 99251; 99285; J7030; Q9967; 90686; A4216; G0378; G0463

== ENCOUNTER 2021-03-17 13:51 | Emergency (ER) | payer MEDICARE, SELFPAY ==
[2021-03-17] VITALS (9 sets, daily range): BP systolic 146; BP diastolic 91; PULSE 89–97; RESP 21–24; TEMP 36.1; O2SAT 86–95; BMI 26.4
--- NOTE | 2021-03-17 14:14 | EKG12_ITS ---
Test Reason : SOB Blood Pressure : / mmHG Vent. Rate : 085 BPM Atrial Rate : 085 BPM P-R Int : 174 ms QRS Dur : 100 ms QT Int : 434 ms P-R-T Axes : 005 008 100 degrees QTc Int : 516 ms Normal sinus rhythm Nonspecific ST and T wave abnormality Prolonged QT Abnormal ECG Confirmed by RENO BROOKS, PALOMA ([id number]), supervising editor trailer XIAO HURT ([id number]) on 03/21/2021 10:02:23 AM Referred By: DUNCAN Confirmed By:PALOMA BOJORQUEZ MD
--- NOTE | 2021-03-17 14:16 | EDS_ITS ---
HPI History of Present Illness Chief Complaint: Shortness of Breath Informant: patient Onset/Context/Timing Onset: Days Context: gradual Timing: Continuous Current Severity: Mild Maximum Severity: Mild Associated Symptoms cough, fever and yellow sputum Chest Pain: Positive for None Narrative Narrative: 70-year-old female reportedly started symptoms on Friday and recently tested positive for Covid at [facility]. She has had fever and cough of yellowish sputum since Friday. Denies nausea or vomiting. No diarrhea. He was treated for pneumonia about a month ago. States she is mildly short of breath. Denies any chest pain or hemoptysis. She has had a prior sternotomy. PE Risk Factors: Negative for Cancer, OCP + Smoking + > 35, Prior DVT or PE, Recent immobilization, Recent surgery and Recent travel Prior similar symptoms: Yes Recent Illness/Hospitalization: Yes [facility] Medical History (Updated 03/17/21 @ 15:[address] Mathieu Alejandre MD) Anemia Chronic pain Essential hypertension Facial droop GERD (gastroesophageal reflux disease) History of back pain HLD (hyperlipidemia) Pinched vertebral nerve Postoperative atrial fibrillation (11/10/20) Scoliosis Home Medications tramadol 100 mg PO TID PRN 11/02/20 [History Last Taken 12/15/20] aspirin 81 mg PO DAILY@0800 #1 tab 11/03/20 [Rx Last Taken 12/15/20] rosuvastatin 20 mg PO QHS 12/15/20 [History Last Taken 12/14/20] valsartan 320 mg PO DAILY 12/15/20 [History Last Taken 12/15/20] labetalol 200 mg tablet 200 mg PO BID tab 02/02/21 [History Last Taken Unknown] ferrous sulfate 325 mg PO BID 02/22/21 [History Last Taken Unknown] dexamethasone [Decadron] 6 mg PO DAILY 10 Days #10 tab 03/17/21 [Rx Last Taken Unknown] Allergy/AdvReac Type Severity Reaction Status Date / Time levofloxacin Allergy Severe leg pain Verified 03/17/21 13:52 amiodarone Allergy mental Verified 03/17/21 13:52 confusion Penicillins Allergy Unknown Verified 03/17/21 13:52 Sulfa (Sulfonamide Allergy Rash Verified 03/17/21 13:52 Antibiotics) lorazepam [From Ativan] AdvReac I went Verified 03/17/21 13:52 crazy Family History Mother Alcoholism Father Hypertension Brother Diabetes Sister Diabetes Hypertension Sister No problems noted. Son Hypertension Other Kidney disease Surgical History (Updated 03/17/21 @ 15:[address] Mathieu Alejandre MD) H/O coronary artery bypass surgery (03/17/21) History of appendectomy History of cholecystectomy History of left heart catheterization (11/03/20) Social History household members: spouse Smoking Status: Never smoker alcohol intake: never substance use type: does not use ROS ROS ED ROS Narrative Cough, fever and shortness of breath. Review of Systems ROS Unobtainable: Denies due to encephalopathy Constitutional Constitutional ED: Reports chills and fever(s); Denies sweats or weight loss Eyes Eyes: Denies change in vision ENT ENT ED: Denies ear pain, rhinorrhea or sore throat Cardiovascular Cardiovascular: Denies chest pain or palpitations Respiratory/Chest Respiratory/Chest: Reports cough, dyspnea and sputum Gastrointestinal Gastrointestinal: Denies abdominal pain, constipation, diarrhea, nausea or vomiting Genitourinary Genitourinary ED: Denies dysuria or hematuria Musculoskeletal Musculoskeletal: Reports myalgias Integumentary Denies rash Neurologic Neurologic: Denies headache(s) Psychiatric Psychiatric: Denies depression Endocrine Endocrinology: Denies polyuria Hematologic/Lymphatic Hematologic/Lymphatic: Denies easy bruising Allergic/Immunologic Allergic/Immunologic ED: Denies urticaria EXAM Physical Exam Narrative Exam Narrative: 70-year-old female no acute distress vital signs initial pulse ox was 86 on room air currently is 92 on room air they have her on oxygen they are weaning it. HEENT exam unremarkable. Moist mucous membranes. Neck nontender no lymphadenopathy. Lungs clear to auscultation. Heart regular rhythm no murmur. Abdomen soft nontender. Normal bowel sounds no peritoneal signs. Thank you extremities moves all 4. Calves nontender no edema. Neurologically she is awake and alert. No focal motor deficits. Const Vital Signs: 03/17/21 13:53 03/17/21 13:55 03/17/21 14:08 Temperature 97 F L Temperature Source Temporal Pulse Rate 89 Respiratory Rate 24 H Blood Pressure 146/91 H Blood Pressure Mean 109 Pulse Ox 86 92 94 Oxygen Delivery Method Room Air Room Air Nasal Cannula Oxygen Flow Rate (L/min) 3 03/17/21 14:15 03/17/21 14:30 03/17/21 14:45 Temperature Temperature Source Pulse Rate Respiratory Rate Blood Pressure Blood Pressure Mean Pulse Ox 95 95 92 Oxygen Delivery Method Nasal Cannula Nasal Cannula Room Air Oxygen Flow Rate (L/min) 2 1 Positive well nourished and well developed; Negative for obese, cachectic, con tractures or unkempt General Appearance ED: well developed and NAD; Negative for unkempt, cachectic or contractures Nutritional Appearance: Negative for cachectic or obese HEENT Reports moist mucous membranes atraumatic; Negative for trauma or tenderness Eyes PERRL and EOMs intact bilaterally Neck no lymphadenopathy, supple, no meningeal signs and no JVD General: Negative for tenderness Resp normal respiratory effort and clear to auscultation bilaterally Auscultation: Negative for rales, rhonchi or wheezes Cardio regular rate, regular rhythm, S1 normal heart sound, S2 normal heart sound and no murmurs GI non-tender, non-distended and no masses Auscultation: normoactive bowel sounds Palpation: soft; Negative for tender, guarding or rebound tenderness present Back/Spine no CVA tenderness and normal to inspection General Back: Negative for CVA tenderness Extremity normal to inspection General Extremety ED: Negative for edema or tenderness General Extremity: Negative for edema Neuro oriented x3 Sensorium / Orientation: alert, oriented to person, oriented to place and oriented to time; Negative for orientation impaired, confused, lethargic or stuporous Motor Exam: strength 5/5 throughout Psych mental status grossly normal Appearance: Negative for unkempt Thought Process: normal thought process Skin no wounds Lesions: no lesions Rashes: no rashes MDM MDM MDM Narrative Medical decision making narrative: 70-year-old female day number 5 of Covid symptoms Covid positive test at another facility. Will be started on Decadron. Chest x-ray and labs being obtained. Repeat exam patient is doing well lying in bed. She denied talked about admission versus discharge to home with oxygen and on Decadron. She does not want to be admitted to the hospital. She knows to return if worse. Now that she needs oxygen with a pulse ox of 89 on room air sitting in bed she will not be a candidate for monoclonal antibody therapy. Lab Data Attestation: I reviewed the patient's lab results. Lab results narrative: CBC White 3.8 hemoglobin 12.2. Low platelet count of 1 34,000. Electrolytes show a gap at 9 normal BUN and creatinine. Glucose of 112. Labs: Laboratory Results - last 24 hr 03/17/21 03/17/21 14:39 14:39 WBC 3.8 L RBC 4.52 Hgb 12.2 Hct 38.8 MCV 85.8 MCH 27.0 MCHC 31.4 L RDW Std Deviation 71.7 H RDW Coeff of Douglas 23.2 H Plt Count 134 L Immature Gran % (Auto) 0.500 Neut % (Auto) 80.6 H Lymph % (Auto) 14.7 L [place] % (Auto) 2.6 Eos % (Auto) 1.3 Baso % (Auto) 0.3 Absolute Neuts (auto) 3.1 Absolute Lymphs (auto) 0.56 L Nucleated RBC % 0 Sodium 135 L Potassium 3.6 Chloride 101 Carbon Dioxide 25.0 Anion Gap 9 BUN 17 Creatinine 0.90 Estim Creat Clear Calc 40.58 Est GFR (MDRD) Af Amer 79 Est GFR (MDRD) Non-Af 66 BUN/Creatinine Ratio 19.0 Glucose 112 H Calcium 8.3 L Radiography Chest X-Ray - ED: 1 View, Read by ED Physician, Heart, Mediastinum, Bony Structures, Right Infiltrate and Left Infiltrate Diagnostic Testing: Single view, portable chest x-ray interpreted by myself shows bilateral infiltrates consistent with COVID-19 pneumonitis. EKG Initial EKG: Attestation: I personally reviewed and interpreted this EKG as follows: Interpretation: Sinus Rhythm and No Acute Injury Pattern Comments: Normal sinus rhythm rate 85 no signs of acute AK nor ischemia. Discharge Plan Triage Chief Complaint: Shortness of Breath ED Provider: Mathieu Alejandre Dx/Rx/DC Orders Clinical Impression: COVID-19, Hypoxia Instructions: Human Coronaviruses Prescriptions: New dexamethasone [Decadron] 6 mg tablet 6 mg PO DAILY 10 Days Qty: 10 RF: 0 No Action labetalol 200 mg tablet 200 mg PO BID RF: 0 tramadol 50 mg tablet 100 mg PO TID PRN (Reason: Pain) RF: 0 aspirin 81 mg Tablet,Delayed Release (Dr/Ec) 81 mg PO DAILY@0800 Qty: 1 RF: 0 valsartan 320 mg Tablet 320 mg PO DAILY RF: 0 rosuvastatin 20 mg Tablet 20 mg PO QHS RF: 0 ferrous sulfate 325 mg (65 mg iron) Tablet 325 mg PO BID RF: 0 Primary Care Provider: Elroy Wellington Referrals: Elroy Wellington MD [Primary Care Provider] - 1 Week if not improving Activity Restrictions/Additional Instructions: Daily Decadron the steroid to decrease inflammation in your lungs. Home oxygen to help your breathing. Return if feeling a lot worse or feeling more short of breath. Otherwise follow-up primary care doctor. Disposition Disposition: Home, Self Care
--- NOTE | 2021-03-17 14:49 | NURSING ---
Called pharmacy to let them know the medication is scheduled at 10am so put in weird but resulted in not being able to verify it. Patient has fear of needles and her IV blew. Blood sent down but patient denies n/v and drinking PO water x 4 cups at this time instead of IV fluids to avoid stick, if not necessary. She is aware may still need to do one if need for IV meds or admission.
[2021-03-17 14:56] LABS: Absolute Lymphocyte Count 0.56 X10^3/uL (0.83-4.51); Absolute Neutrophil Count 3.1 X10^3/uL (2.0-7.7); Basophil# 0.01 X10^3/uL; Basophil% 0.3 % (0-1); Eosinophil# 0.05 X10^3/uL; Eosinophils% 1.3 % (0-5); Hematocrit 38.8 % (37-47); Hemoglobin 12.2 g/dL (12.0-15.0); Lymphocyte # 0.56 X10^3/ul (0.83-4.51); Lymphocyte % 14.7 % (19-41); Mean Corp Hgb Conc 31.4 g/dL (32-36); Mean Corpuscular Volume 85.8 fL (81-99); Monocyte% 2.6 % (0-10); NRBC Flagged by Analyzer 0 % (0-5); Neutrophil # 3.07 X10^3/uL (2.7-7.7); Neutrophil % 80.6 % (47-70); POSITIVE DIFFERENTIAL YES; POSITIVE MORPHOLOGY YES; Platelet Count 134 K/mm3 (150-450); RBC Distribution Width CV 23.2 % (11.6-14.6); RBC Distribution Width SD 71.7 fl (35.1-43.9); Red Blood Count 4.52 M/mm3 (4.2-5.4); White Blood Count 3.8 K/mm3 (4.4-11.0)
[2021-03-17 14:58] LABS: Differential Indicated SCAN CRITERIA MET
[2021-03-17] MEDS: dexAMETHasone 4 MG Tablet 6 MG PO (15:00)
[2021-03-17 15:05] LABS: Anion Gap 9 (5-15); BUN 17 mg/dL (7-18); Calcium,Total 8.3 mg/dL (8.5-10.1); Chloride 101 mmol/L (98-107); EST Glomerular Filtration Rate 66 mL/min (>60); Est Glom Filt Rate - Afr Amer 79 mL/min (>60); Estimated Creatinine Clearance 40.58 ml/min; Glucose 112 mg/dL (74-106); Potassium 3.6 mmol/L (3.5-5.1); Sodium Level 135 mmol/L (136-145)
--- NOTE | 2021-03-17 15:10 | RAD_ITS ---
INDICATION: covid EXAMINATION/TECHNIQUE: X-RAY - XR Chest 1 View COMPARISON: 02/22/2021 FINDINGS: LIFE-SUPPORT AND LINES: 1. Median sternotomy wires and vascular clips are present. HEART AND VESSELS: Cardiac silhouette is unchanged. No congestive failure. LUNGS AND PLEURAL SPACES: Mild worsening diffuse interstitial and hazy parenchymal infiltrate bilaterally greater on the LEFT than RIGHT. No toi consolidation, no effusion. MEDIASTINUM AND HILAR REGIONS: No masses adenopathy noted. No areas of calcification. Visualized upper airway is normal in position. BONY ELEMENTS: No acute bony changes noted. RAD/Chest 1 View (Portable) IMPRESSION: 1. Postop changes of prior CABG. 2. No pneumothorax. 3. Diffuse interstitial and hazy parenchymal infiltrate with mild worsening greater on the LEFT than RIGHT consistent with multilobar atypical viral pneumonia. 4. No lobar consolidation, no effusion, and no congestive failure. Electronically Signed: Master Patel MD at 15:49 EST Tel , Service support ,
--- NOTE | 2021-03-17 15:15 | NURSING ---
92% RA resting, 88% amb 3 yards on RA, 2L NC applied and back to 92% amb and 94% resting with oxygen
[2021-03-17 15:38] LABS: Anisocytosis 2+; Differential Comment SCANNED
--- NOTE | 2021-03-17 15:51 | ED.RN ---
DILAN called for home oxygen
[2021-03-19 13:10] LABS: Pathologist Review Reviewed
--- NOTE | 2021-03-20 13:06 | CASEMGMT ---
[facility] ED COVID Home O2 follow-up: This RN VICENTE phoned pt on provided phone number. Pt's answered the phone and reported pt to be doing well. States pt's PO has been 90-92% on O2 at 2l/min. Reports pt to have a frequent productive cough and to be using the IS provided. Pt's states pt has been eating without difficulty and taking the decadron as prescribed. States they did not get the decadron until the pharmacy opened on Friday. Pt has a follow-up appointment on Friday, March [address] Wellington. Pt's denies any questions or concerns at this time. Emily Sanchez RN CM
--- NOTE | 2021-03-23 10:07 | CASEMGMT ---
[facility] ED COVID Home O2 Follow-up: This ANG CM contacted pt via phone in follow-up. Pt states she is continuing to feel weak and shaky. Noted pt to sound SOB while speaking. Pt agrees she feels SOB but that its not too bad. Pt states she continues to wear her O2 at 2l/min and reports her PO to be 88-90%. Pt states the 88% is more when she is up moving around. Instructed pt and her to increase O2 to 3l/min when up moving around and then decrease it to 2l/min when at rest. Both expressed understanding. Pt states she had an episode of breaking out in a cold sweat x1 when she got up to go the bathroom. Denied any dizziness or other accompanying symptoms. Pt states she continues to have a productive cough and taking Mucinex. Pt reports to be eating and drinking ensure. Pt states she thought she was feeling better on Friday but that yesterday she began to feel worse and today she is not sure yet. Asked pt about use of IS and prone positioning. Pt states she had not been able to tolerate the IS due to severe coughing since Friday and states due to back issues she is unable to tolerate prone positioning. Reiterated to pt that coughing is good. Pt asked about an antibiotic for her congestion. Education provided on not using antibiotics for viruses/COVID and that if an additional infection were to become present then it would be appropriate at that time only. Pt expressed understanding. Pt expressed concern with ability to make it to her PCP appointment on Friday. Instructed pt to contact her PCP today to provide them an update and find out if there are other appointment options such as a phone visit for Friday. Pt states he PCP is not in the office today. Instructed pt to return to the ED if she continues to feel worse or if her breathing becomes more difficult. Pt expressed understanding. Emily Sanchez RN CM
== END 2021-03-17 16:33 | disposition home or self-care (01) ==
PROVIDERS: Emergency Provider Emergency Medicine; PCP Family Medicine
DX: U07.1 COVID-19 (principal); R09.02 Hypoxemia; I10 Essential (primary) hypertension; K21.9 Gastro-esophageal reflux disease without esophagitis; E78.5 Hyperlipidemia, unspecified; Z79.899 Other long term (current) drug therapy
CPT/HCPCS: 71045; 80048; 85025; 93005; 99284; J7030; A4216

== ENCOUNTER 2021-03-24 08:09 | Inpatient (IN) | payer MEDICARE, SELFPAY ==
[2021-03-24] VITALS (13 sets, daily range): BP systolic 85–149; BP diastolic 54–84; PULSE 21–80; RESP 19–73; TEMP 36.5–37.1; O2SAT 78–96; BMI 26.4
--- NOTE | 2021-03-24 08:41 | RAD_ITS ---
STUDY: X-RAY CHEST REASON FOR EXAM: Female, 70 years old. Cough TECHNIQUE: Frontal view COMPARISON: 03/17/2021 FINDINGS: Stable sternotomy wires. Stable elevation of the right hemidiaphragm. Increasing infiltrates bilaterally, left more than right. Normal size heart. Normal mediastinum and lynn. Normal visualized pulmonary arteries. Normal visualized aortic arch and descending thoracic aorta. Normal visualized thoracic spine. Normal visualized ribs, clavicles, and shoulders. There is no demonstrated abnormality of the visualized soft tissue structures of the upper abdomen. RAD/Chest 1 View (Portable) IMPRESSION: Stable elevation of the right hemidiaphragm. Increasing infiltrates bilaterally, left more than right. Electronically Signed: Win Chowdary DO at 9:44 EST Tel [phone], Service support ,
--- NOTE | 2021-03-24 08:45 | ED.VIS.DYS ---
HPI History of Present Illness Chief Complaint: Shortness of Breath Informant: patient Onset/Context/Timing Onset: Weeks (1) Context: gradual Timing: Continuous Quality: Positive for Dyspnea on exertion Worsened by: Exertion Relieved by: Rest and Oxygen Associated Symptoms cough and yellow sputum; Negative for rhinorrhea, ear pain, fever, sore throat, chills, clear sputum, white sputum or green sputum Chest Pain: Positive for None Narrative Narrative: Patient presents with shortness of breath that has been getting worse over the past week. Patient tested positive for COVID-19 approximately 8 days ago. Patient states her breathing has been getting progressively worse. Patient was seen here and discharged home with home oxygen. Patient states her oxygen saturations have continued to drop despite the oxygen at home. Patient states her saturations have been dropping into the 80s on her home oxygen. Patient states her breathing is worse with any exertion. Patient states she is coughing up some yellow sputum. Patient denies any fevers or chills. Patient denies any chest pain. [facility] Medical History Anemia Chronic pain Essential hypertension Facial droop GERD (gastroesophageal reflux disease) History of back pain HLD (hyperlipidemia) Pinched vertebral nerve Postoperative atrial fibrillation (11/10/20) Scoliosis Home Medications tramadol 100 mg PO TID PRN 11/02/20 [History Last Taken 12/15/20] aspirin 81 mg PO DAILY@0800 #1 tab 11/03/20 [Rx Last Taken 12/15/20] rosuvastatin 20 mg PO QHS 12/15/20 [History Last Taken 12/14/20] valsartan 320 mg PO DAILY 12/15/20 [History Last Taken 12/15/20] labetalol 200 mg tablet 200 mg PO BID tab 02/02/21 [History Last Taken Unknown] ferrous sulfate 325 mg PO BID 02/22/21 [History Last Taken Unknown] dexamethasone [Decadron] 6 mg PO DAILY 10 Days #10 tab 03/17/21 [Rx Last Taken Unknown] Allergy/AdvReac Type Severity Reaction Status Date / Time levofloxacin Allergy Severe leg pain Verified 03/24/21 08:13 amiodarone Allergy mental Verified 03/24/21 08:13 confusion Penicillins Allergy Unknown Verified 03/24/21 08:13 Sulfa (Sulfonamide Allergy Rash Verified 03/24/21 08:13 Antibiotics) lorazepam [From Ativan] AdvReac I went Verified 03/24/21 08:13 crazy Family History Mother Alcoholism Father Hypertension Brother Diabetes Sister Diabetes Hypertension Sister No problems noted. Son Hypertension Other Kidney disease Surgical History H/O coronary artery bypass surgery (03/17/21) History of appendectomy History of cholecystectomy History of left heart catheterization (11/03/20) Social History household members: spouse Smoking Status: Never smoker alcohol intake: never substance use type: does not use ROS ROS ED Constitutional Constitutional ED: Denies chills or fever(s) Eyes Eyes: Denies blurry vision or change in vision ENT ENT ED: Denies rhinorrhea or sore throat Cardiovascular Cardiovascular: Denies chest pain or palpitations Respiratory/Chest Respiratory/Chest: Reports cough, dyspnea, dyspnea on exertion and sputum Gastrointestinal Gastrointestinal: Denies nausea or vomiting Genitourinary Genitourinary ED: Denies dysuria or hematuria Musculoskeletal Musculoskeletal: Reports back pain; Denies neck pain Integumentary Denies abscess or rash Neurologic Neurologic: Denies headache(s) or weakness Allergic/Immunologic Allergic/Immunologic ED: Denies mouth swelling or urticaria EXAM Physical Exam Const Vital Signs: 03/24/21 08:10 03/24/21 08:13 03/24/21 08:37 Temperature 98.8 F 98.8 F Temperature Source Temporal Temporal Pulse Rate 80 72 Respiratory Rate 28 H 22 H Respiratory Effort Short of Breath Labored Accessory Muscle Use Respiratory Depth Shallow Respiratory Pattern Tachypnea Blood Pressure 85/54 L 102/60 Blood Pressure Mean 64 74 Pulse Ox 78 91 90 Oxygen Delivery Method Nasal Cannula Nasal Cannula Nasal Cannula Oxygen Flow Rate (L/min) 2 6 6 03/24/21 08:42 Temperature Temperature Source Pulse Rate Respiratory Rate Respiratory Effort Respiratory Depth Respiratory Pattern Blood Pressure Blood Pressure Mean Pulse Ox 91 Oxygen Delivery Method Nasal Cannula Oxygen Flow Rate (L/min) 6 Positive well nourished and well developed General Appearance ED: well developed HEENT Reports moist mucous membranes Neck supple and no JVD Resp Auscultation: rales and rhonchi Cardio regular rate, regular rhythm and no murmurs GI normal to inspection, nondistended, normoactive bowel sounds, non-tender and non-distended Palpation: soft Extremity normal to inspection General Extremety ED: Negative for edema or tenderness General Extremity: Negative for edema Neuro oriented x3, CN's II-XII intact bilaterally and no sensory deficits noted Sensorium / Orientation: alert Motor Exam: strength 5/5 throughout Psych mental status grossly normal Skin no rashes or lesions noted MDM MDM MDM Narrative Medical decision making narrative: Portable chest x-ray was obtained. There is 1 view. On my interpretation, there are bilateral infiltrates, worse on the left. This is worse compared to previous x-ray. Radiologist also interpreted the x-ray and agrees. CBC shows a leukocytosis of 12.3. Comprehensive metabolic profile shows a mild hypokalemia of 3.2. Glucose was 262. Lactate was slightly elevated at 2.2. COVID-19 PCR was obtained and is pending. Patient was ordered a dose of Decadron, however, patient took her Decadron at home today so this was held. Patient was given a dose of Tylenol. Patient was given albuterol inhaler. Patient was still feeling short of breath on reevaluation. Patient's oxygen saturation dropped to 89% on 6 L. Patient was started on high flow nasal cannula oxygen. Case was discussed with the hospitalist. He will admit the patient to his service. Patient and family understood and were agreeable with the plan. All questions were answered. Lab Data Attestation: I reviewed the patient's lab results. Labs: Laboratory Results - last 24 hr 03/24/21 03/24/21 03/24/21 08:25 08:25 08:25 WBC 12.3 H RBC 4.84 Hgb 13.2 Hct 42.3 MCV 87.4 MCH 27.3 MCHC 31.2 L RDW Std Deviation 70.1 H RDW Coeff of Douglas 22.7 H Plt Count 430 MPV 12.1 H Immature Gran % (Auto) 4.500 H Neut % (Auto) 78.7 H Lymph % (Auto) 5.8 L [place] % (Auto) 4.6 Eos % (Auto) 5.8 H Baso % (Auto) 0.6 Absolute Neuts (auto) 9.7 H Absolute Lymphs (auto) 0.72 L Nucleated RBC % 0 Anisocytosis 1+ Sodium 135 L Potassium 3.2 L Chloride 103 Carbon Dioxide 23.0 Anion Gap 9 BUN 33 H Creatinine 1.15 H Estim Creat Clear Calc 31.76 Est GFR (MDRD) Af Amer 60 Est GFR (MDRD) Non-Af 49 L BUN/Creatinine Ratio 28.7 H Glucose 262 H Lactic Acid 2.2 H* Calcium 8.7 Total Bilirubin 0.60 AST 38 H ALT 41 Alkaline Phosphatase 163 H Total Protein 6.8 Albumin 3.0 L Globulin 3.8 Albumin/Globulin Ratio 0.8 L Radiography Chest X-Ray - ED: 1 View, Read by ED Physician, Read by Radiologist, Right Infiltrate and Left Infiltrate Diagnostic Testing: Clinical Impression(s) from Imaging Studies Chest X-Ray 03/24/21 08:41 IMPRESSION: Stable elevation of the right hemidiaphragm. Increasing infiltrates bilaterally, left more than right. Electronically Signed: Win Chowdary DO at 9:44 EST Tel [phone], Service support , Treatment and Re-Evaluation Vital Sign Attestation:: Vital signs were reviewed prior to admission. They are improved. Discharge Plan Dx/Rx/DC Orders Clinical Impression: COVID-19, Hypoxia Disposition Disposition: Acute Care [facility]
[2021-03-24 08:58] LABS: Absolute Lymphocyte Count 0.72 X10^3/uL (0.83-4.51); Absolute Neutrophil Count 9.7 X10^3/uL (2.0-7.7); Basophil# 0.08 X10^3/uL; Basophil% 0.6 % (0-1); Eosinophil# 0.71 X10^3/uL; Eosinophils% 5.8 % (0-5); Hematocrit 42.3 % (37-47); Hemoglobin 13.2 g/dL (12.0-15.0); Lymphocyte # 0.72 X10^3/ul (0.83-4.51); Lymphocyte % 5.8 % (19-41); Mean Corp Hgb Conc 31.2 g/dL (32-36); Mean Corpuscular Hgb 27.3 pg (27.0-32.0); Mean Corpuscular Volume 87.4 fL (81-99); Mean Platelet Vol. 12.1 fl (6.2-12.0); Monocyte# 0.57 X10^3/uL; Monocyte% 4.6 % (0-10); NRBC Flagged by Analyzer 0 % (0-5); Neutrophil # 9.68 X10^3/uL (2.7-7.7); Neutrophil % 78.7 % (47-70); POSITIVE MORPHOLOGY YES; Platelet Count 430 K/mm3 (150-450); RBC Distribution Width CV 22.7 % (11.6-14.6); RBC Distribution Width SD 70.1 fl (35.1-43.9); Red Blood Count 4.84 M/mm3 (4.2-5.4); White Blood Count 12.3 K/mm3 (4.4-11.0)
[2021-03-24] MEDS: Acetaminophen 500 MG Tablet 1000 MG PO (09:01)
[2021-03-24 09:06] LABS: Differential Indicated SCAN CRITERIA MET
[2021-03-24 09:12] LABS: ALB/GLOB Ratio 0.8 RATIO (0.9-2.4); AST(SGOT) 38 U/L (15-37); Alanine Aminotransfer ALT/SGPT 41 U/L (13-56); Alkaline Phosphatase 163 U/L (45-117); Anion Gap 9 (5-15); BUN 33 mg/dL (7-18); BUN/Creat Ratio 28.7 RATIO (10-20); Calcium,Total 8.7 mg/dL (8.5-10.1); Chloride 103 mmol/L (98-107); Creatinine, Serum 1.15 mg/dL (0.55-1.02); EST Glomerular Filtration Rate 49 mL/min (>60); Est Glom Filt Rate - Afr Amer 60 mL/min (>60); Estimated Creatinine Clearance 31.76 ml/min; Globulin 3.8 g/dL (2.2-4.2); Glucose 262 mg/dL (74-106); Potassium 3.2 mmol/L (3.5-5.1); Protein, Total 6.8 g/dL (6.4-8.2); Sodium Level 135 mmol/L (136-145)
[2021-03-24 09:23] LABS: Anisocytosis 1+; Lactic Acid 2.2 mmol/L (0.4-1.9)
--- NOTE | 2021-03-24 10:57 | NURSING ---
DR DOREEN NÚÑEZ
--- NOTE | 2021-03-24 11:01 | NURSING ---
MED SURG DOREEN COVID 19, PNEUMONIA, HYPOXIA
--- NOTE | 2021-03-24 11:20 | NURSING ---
DDIMER HEMOLIZED AND NEEDS REDRAWN. LAB TO REPRINT LABELS
--- NOTE | 2021-03-24 11:26 | CPS ---
RT CALLED TO ER 6 DUE TO LOW SP02 OF 86% ON 6 LPM. ER DOCTOR IN ROOM AND GAVE OK TO USE HIGH FLOW GREEN CANNULLA. PATIENT PLACED ON 10 LPM HFNC. PATIENT INCREASED TO 93%.
[2021-03-24 11:53] LABS: D-Dimer Quantitative (DVT/PE) 8.57 FEU/ug/m (0.27-0.49)
--- NOTE | 2021-03-24 12:00 | CT_ITS ---
STUDY: CTA CHEST REASON FOR EXAM: Female, 70 years old. hypoxia, COVID + RADIATION DOSAGE (If Supplied By Facility): CTDIvol = ( 7.04 ) mGy, DLP = ( 234.50 ) mGycm TECHNIQUE: The examination was performed with the intravenous administration of IV 75mL Isovue-370. Post-processing of the angiographic images was performed, with multiplanar reformation and 3D reconstruction. Individualized dose optimization techniques were used for this CT. COMPARISON: 03/24/2021 FINDINGS: Pulmonary artery and its branches demonstrate no evidence for filling defects. Coronary vascular calcifications. No pericardial effusion. Calcifications of the thoracic aorta Extensive bilateral groundglass densities are seen which can be seen in the setting of atypical viral pneumonia. Other possibilities include pulmonary edema. The trachea and the mainstem bronchi are patent. No acute osseous abnormalities in the thoracic spine. Degenerative changes of the thoracic spine. . There is dilatation of the intrahepatic bile ducts are noted. Midline sternotomy wires. IMPRESSION: Extensive bilateral groundglass densities which can be seen in the setting of atypical viral pneumonia. Other possibilities include pulmonary edema. Cardiomegaly with coronary vascular calcifications. No evidence for acute pulmonary embolism. No evidence for aortic dissection. Dilatation of the intrahepatic bile ducts which can be assessed with CT examination of the abdomen pelvis. Electronically Signed: Mario Ugarte MD at 14:41 EST Tel , Service support , CT/CTA Chest W/WO Contrast
[2021-03-24 12:55] LABS: Reflex Lactate? Y
--- NOTE | 2021-03-24 13:19 | NURSING ---
at 1240, pt went to CT scan for r/o PE-pt known elevated d-dimer,
--- NOTE | 2021-03-24 13:49 | HP.PCM.HOS_ITS ---
HPI - General General Date of Admission: 03/24/21 Date of Service: 03/24/21 Chief Complaint: shortness of breath. HPI Narrative NEHEMIAS VARELA, is a 70 F who presents with 10 days of illness and has been progressively short of breath. She was seen in the ED on and sent home with oxygen. Despite the oxygen, she has been hypoxic and presents to the ED. Pt was taking dexamethasone during this time. She was vaccinated with the J+J vaccine. In the ED, she was hypoxic on 6liters, but increased to the 12 liters. COUNTS INCLUDE 234 BEDS AT THE [facility] Medical History Anemia Chronic pain Essential hypertension Facial droop GERD (gastroesophageal reflux disease) History of back pain HLD (hyperlipidemia) Pinched vertebral nerve Postoperative atrial fibrillation (11/10/20) Scoliosis Home Medications tramadol 100 mg PO TID PRN 11/02/20 [History Last Taken 12/15/20] aspirin 81 mg PO DAILY@0800 #1 tab 11/03/20 [Rx Last Taken 12/15/20] rosuvastatin 20 mg PO QHS 12/15/20 [History Last Taken 12/14/20] valsartan 320 mg PO DAILY 12/15/20 [History Last Taken 12/15/20] labetalol 200 mg tablet 200 mg PO BID tab 02/02/21 [History Last Taken Unknown] ferrous sulfate 325 mg PO BID 02/22/21 [History Last Taken Unknown] dexamethasone [Decadron] 6 mg PO DAILY 10 Days #10 tab 03/17/21 [Rx Last Taken Unknown] Allergy/AdvReac Type Severity Reaction Status Date / Time levofloxacin Allergy Severe leg pain Verified 03/24/21 08:13 amiodarone Allergy mental Verified 03/24/21 08:13 confusion Penicillins Allergy Unknown Verified 03/24/21 08:13 Sulfa (Sulfonamide Allergy Rash Verified 03/24/21 08:13 Antibiotics) lorazepam [From Ativan] AdvReac I went Verified 03/24/21 08:13 marlen Family History Mother Alcoholism Father Hypertension Brother Diabetes Sister Diabetes Hypertension Sister No problems noted. Son Hypertension Other Kidney disease Surgical History H/O coronary artery bypass surgery (03/17/21) History of appendectomy History of cholecystectomy History of left heart catheterization (11/03/20) Social History household members: spouse Smoking Status: Never smoker alcohol intake: never substance use type: does not use ROS ROS Narrative No anosmia. Coughing up productive phlegm. All review of systems were negative except as mentioned above in the history of present illness and the other review of systems. Vital Signs Vital Signs Vital Signs: 03/24/21 08:10 03/24/21 08:13 03/24/21 08:37 Temperature 37.1 C 37.1 C Temperature Source Temporal Temporal Pulse Rate 80 72 Respiratory Rate 28 H 22 H Respiratory Effort Short of Breath Labored Accessory Muscle Use Respiratory Depth Shallow Respiratory Pattern Tachypnea Blood Pressure 85/54 L 102/60 Blood Pressure Mean 64 74 Blood Pressure Source Blood Pressure Position Blood Pressure Location Pulse Ox 78 91 90 Oxygen Delivery Method Nasal Cannula Nasal Cannula Nasal Cannula Oxygen Flow Rate (L/min) 2 6 6 03/24/21 08:42 03/24/21 09:00 03/24/21 10:10 Temperature Temperature Source Pulse Rate 21 L 67 Respiratory Rate 73 H 19 H Respiratory Effort Respiratory Depth Respiratory Pattern Blood Pressure 97/68 113/60 Blood Pressure Mean 77 77 Blood Pressure Source Blood Pressure Position Blood Pressure Location Pulse Ox 91 91 91 Oxygen Delivery Method Nasal Cannula Nasal Cannula Nasal Cannula Oxygen Flow Rate (L/min) 6 6 6 03/24/21 10:45 03/24/21 11:26 03/24/21 11:32 Temperature 36.6 C Temperature Source Temporal Pulse Rate 73 76 Respiratory Rate 22 H 21 H Respiratory Effort Respiratory Depth Respiratory Pattern Blood Pressure 118/62 135/73 H Blood Pressure Mean 80 93 Blood Pressure Source Blood Pressure Position Blood Pressure Location Pulse Ox 89 92 92 Oxygen Delivery Method Nasal Cannula Nasal Cannula High Flow Oxygen Flow Rate (L/min) 6 10 10 03/24/21 12:01 Temperature 36.6 C Temperature Source Temporal Pulse Rate 78 Respiratory Rate 20 H Respiratory Effort Respiratory Depth Respiratory Pattern Blood Pressure 119/84 H Blood Pressure Mean 95 Blood Pressure Source Monitor Blood Pressure Position Semi-Fowlers Blood Pressure Location Right Arm Pulse Ox 90 Oxygen Delivery Method Nasal Cannula Oxygen Flow Rate (L/min) 12 Weight Weight: 61.235 kg Body Mass Index (BMI) 26.4 Physical Exam Const alert General Appearance: cooperative HEENT normocephalic and head/scalp atraumatic Neck no lymphadenopathy Resp normal respiratory effort, no retractions, no use of accessory muscles and clear to auscultation bilaterally Cardio regular rate, regular rhythm, S1 normal heart sound and S2 normal heart sound GI normal to inspection, nondistended, normoactive bowel sounds, soft to palpation, non-tender and non-distended Extremity normal to inspection Skin no rashes or lesions noted Neuro Sensorium / Orientation: awake and alert Psych Mood & Affect: depressed Results Lab / Micro Data Attestation: I reviewed the patient's lab results. Result Diagrams: 03/24/21 08:25 03/24/21 08:25 Labs: Laboratory Results - last 24 hr 03/24/21 08:20: D-Dimer Quant (PE/DVT) Cancelled 03/24/21 08:25: WBC 12.3 H, RBC 4.84, Hgb 13.2, Hct 42.3, MCV 87.4, MCH 27.3, MCHC 31.2 L, RDW Std Deviation 70.1 H, RDW Coeff of Douglas 22.7 H, Plt Count 430, MPV 12.1 H, Immature Gran % (Auto) 4.500 H, Neut % (Auto) 78.7 H, Lymph % (Auto) 5.8 L, [place] % (Auto) 4.6, Eos % (Auto) 5.8 H, Baso % (Auto) 0.6, Absolute Neuts (auto) 9.7 H, Absolute Lymphs (auto) 0.72 L, Nucleated RBC % 0, Anisocytosis 1+ 03/24/21 08:25: Sodium 135 L, Potassium 3.2 L, Chloride 103, Carbon Dioxide 23.0, Anion Gap 9, BUN 33 H, Creatinine 1.15 H, Estim Creat Clear Calc 31.76, Est GFR (MDRD) Af Amer 60, Est GFR (MDRD) Non-Af 49 L, BUN/Creatinine Ratio 28.7 H, Glucose 262 H, Calcium 8.7, Total Bilirubin 0.60, AST 38 H, ALT 41, Alkaline Phosphatase 163 H, Total Protein 6.8, Albumin 3.0 L, Globulin 3.8, Albumin/Globulin Ratio 0.8 L 03/24/21 08:25: Lactic Acid 2.2 H* 03/24/21 11:25: D-Dimer Quant (PE/DVT) 8.57 H* 03/24/21 : COVID-19 (JAYLIN) Not Detected Radiology Impression Chest X-Ray 03/24/21 08:41 IMPRESSION: Stable elevation of the right hemidiaphragm. Increasing infiltrates bilaterally, left more than right. Electronically Signed: Win Epi DO at 9:44 EST Tel [phone], Service support , Assessment & Plan Assessment/Plan (1) Acute respiratory failure with hypoxia: (2) COVID-19: PLAN: 1. Acute hypoxic respiratory failure * Secondary to worsening COVID-19 * Currently on 12 L nasal cannula and satting at 90%. Verified with the patient that she would want to be intubated if it came to that point. Reassured the patient that we are not near that point at present. * Wean oxygen as able * Pulmonary toilet * Reviewed CT: Changes consistent with COVID-19 pneumonia no infiltrate to suggest bacterial pneumonia at this time. No evidence of pulmonary embolism. 2. COVID 19 pneumonia * onset 03/14, quarantine through 04/03 * continue dexamethasone (was taking at home since the ) add remdesivir * Previously vaccinated with the Ervin & Ervin vaccine 3. Coronary artery disease * Stable * Continue aspirin and statin 4. Hypertension * Stable * Continue with valsartan 5. VTE prophylaxis: Moderate risk. Ang apparent. Case discussed with the patient's at bedside who also contracted Covid around the same time. Told him that this is his last day of quarantine but he would not be able to visit the patient in the hospital with her having Covid. Charges/Coding Visit Charges Inpatient E&M: 03384 Init Hosp L3
[2021-03-24] MEDS: Acetaminophen 325 MG Tablet 650 MG PO (14:00)
[2021-03-24] MEDS: traMADol 50 MG Tablet 100 MG PO ×2 (14:10→21:27)
[2021-03-24 14:58] LABS: Alkaline Phosphatase 156 U/L (45-117)
[2021-03-24 15:13] LABS: Lactic Acid 0.9 mmol/L (0.4-1.9)
[2021-03-24] MEDS: Ferrous Sulfate 325 MG Tablet PO (17:08)
[2021-03-24] MEDS: Atorvastatin Calcium 40 MG Tablet PO (21:26)
[2021-03-24] MEDS: Labetalol 200 MG Tablet PO (21:26)
[2021-03-25] VITALS (8 sets, daily range): BP systolic 131–154; BP diastolic 44–98; PULSE 77–92; RESP 20–24; TEMP 36.2–36.6; O2SAT 84–95
[2021-03-25] MEDS: Acetaminophen 325 MG Tablet 650 MG PO ×3 (00:36→22:02)
[2021-03-25 00:46] LABS: BNP,B-Type NATRIURETIC PEPTIDE 46.5 pg/mL (0-100)
[2021-03-25] MEDS: guaiFENesin 1,200 MG Tablet 1200 MG PO ×2 (05:03→20:47)
--- NOTE | 2021-03-25 05:03 | NURSING ---
PT WAS UP TO BSC WITH ASSISTANCE OF SHIFT BOSS. 02 SATS NOTED TO DROP TO 83% ON 13L N/C. BACK TO BED AND ENCOURAGED TO TAKE SLOW DEEP BREATHS. SLOWLY CAME UP TO 90% AFTER APPROX 15 MINUTES. DRY NON PROD COUGH NOTED. MUCINEX GIVEN PER NEW ORDER
[2021-03-25] MEDS: traMADol 50 MG Tablet 100 MG PO ×3 (07:09→22:02)
[2021-03-25 07:18] LABS: Absolute Lymphocyte Count 0.65 X10^3/uL (0.83-4.51); Basophil# 0.05 X10^3/uL; Basophil% 0.5 % (0-1); Eosinophil# 0.45 X10^3/uL; Eosinophils% 4.4 % (0-5); Hemoglobin 12.1 g/dL (12.0-15.0); Lymphocyte # 0.65 X10^3/ul (0.83-4.51); Lymphocyte % 6.4 % (19-41); Mean Corp Hgb Conc 32.7 g/dL (32-36); Mean Corpuscular Hgb 27.2 pg (27.0-32.0); Mean Corpuscular Volume 83.1 fL (81-99); Mean Platelet Vol. 11.6 fl (6.2-12.0); Monocyte# 0.59 X10^3/uL; Monocyte% 5.8 % (0-10); NRBC Flagged by Analyzer 0 % (0-5); Neutrophil # 7.99 X10^3/uL (2.7-7.7); Neutrophil % 78.2 % (47-70); POSITIVE MORPHOLOGY YES; Platelet Count 318 K/mm3 (150-450); RBC Distribution Width CV 21.9 % (11.6-14.6); RBC Distribution Width SD 65.6 fl (35.1-43.9); Red Blood Count 4.45 M/mm3 (4.2-5.4); White Blood Count 10.2 K/mm3 (4.4-11.0)
[2021-03-25 07:20] LABS: Differential Indicated SCAN CRITERIA MET
[2021-03-25 07:33] LABS: ALB/GLOB Ratio 0.7 RATIO (0.9-2.4); AST(SGOT) 25 U/L (15-37); Alanine Aminotransfer ALT/SGPT 36 U/L (13-56); Albumin, Serum 2.5 g/dL (3.2-5.0); Alkaline Phosphatase 143 U/L (45-117); Anion Gap 8 (5-15); BUN 24 mg/dL (7-18); BUN/Creat Ratio 29.1 RATIO (10-20); Calcium,Total 8.5 mg/dL (8.5-10.1); Chloride 106 mmol/L (98-107); Creatinine, Serum 0.82 mg/dL (0.55-1.02); EST Glomerular Filtration Rate 72 mL/min (>60); Est Glom Filt Rate - Afr Amer 87 mL/min (>60); Estimated Creatinine Clearance 44.54 ml/min; Globulin 3.7 g/dL (2.2-4.2); Glucose 133 mg/dL (74-106); Potassium 3.3 mmol/L (3.5-5.1); Protein, Total 6.2 g/dL (6.4-8.2); Sodium Level 138 mmol/L (136-145)
[2021-03-25 07:46] LABS: Anisocytosis 1+
[2021-03-25] MEDS: dexAMETHasone 4 MG Tablet 6 MG PO (11:15)
[2021-03-25] MEDS: Losartan Potassium 100 MG Tablet PO (11:15)
[2021-03-25] MEDS: Aspirin E.C. 81 MG Tablet PO (11:16)
[2021-03-25] MEDS: Enoxaparin 40 MG/0.4 ML Syringe SC (11:17)
[2021-03-25] MEDS: Labetalol 200 MG Tablet PO ×2 (11:18→20:47)
--- NOTE | 2021-03-25 12:36 | PN.HOSP_ITS ---
Subjective Subjective Did not sleep well last night. Breathing well, but still with high flow oxygen. Objective Data Objective Data Vital Signs: Vital Signs Temp Pulse Resp BP Pulse Ox 36.4 C L 91 22 H 132/44 H 90 03/25/21 10:50 03/25/21 10:50 03/25/21 10:50 03/25/21 10:50 03/25/21 10:50 Oxygen Flow Rate (L/min) 13 Oxygen Delivery Method Nasal Cannula Weight: 61.235 kg Body Mass Index (BMI) 26.4 Intake & Output: Intake and Output for Last 24 Hours 03/23/21 03/24/21 03/25/21 23:59 23:59 23:59 Intake Total 1425 / 1725 500.25 / 500.25 Balance 1425 / 1725 500.25 / 500.25 Lab / Micro Data Result Diagrams: 03/25/21 07:05 03/25/21 07:05 Labs: Laboratory Results - last 24 hr 03/24/21 08:25: B-Natriuretic Peptide 46.5 03/24/21 14:20: Alkaline Phosphatase 156 H 03/24/21 14:20: Lactic Acid 0.9 03/25/21 07:05: WBC 10.2, RBC 4.45, Hgb 12.1, Hct 37.0, MCV 83.1, MCH 27.2, MCHC 32.7, RDW Std Deviation 65.6 H, RDW Coeff of Douglas 21.9 H, Plt Count 318, MPV 11.6, Immature Gran % (Auto) 4.700 H, Neut % (Auto) 78.2 H, Lymph % (Auto) 6.4 L , Wallace % (Auto) 5.8, Eos % (Auto) 4.4, Baso % (Auto) 0.5, Absolute Neuts (auto) 8.0 H, Absolute Lymphs (auto) 0.65 L, Nucleated RBC % 0, Anisocytosis 1+ 03/25/21 07:05: Sodium 138, Potassium 3.3 L, Chloride 106, Carbon Dioxide 24.0, Anion Gap 8, BUN 24 H, Creatinine 0.82, Estim Creat Clear Calc 44.54, Est GFR (MDRD) Af Amer 87, Est GFR (MDRD) Non-Af 72, BUN/Creatinine Ratio 29.1 H, Glucose 133 H, Calcium 8.5, Total Bilirubin 0.30, AST 25, ALT 36, Alkaline Phosphatase 143 H, Total Protein 6.2 L, Albumin 2.5 L, Globulin 3.7, Albumin/ Globulin Ratio 0.7 L Micro: Microbiology 03/25/21 Unknown Mucosa - Nasopharyngeal Respiratory Panel (PCR) - Final Radiography Diagnostic Testing: Radiology Impression Chest CTA 03/24/21 12:00 Physical Exam Const alert Resp normal respiratory effort, no retractions, no use of accessory muscles and clear to auscultation bilaterally Cardio regular rate, regular rhythm, S1 normal heart sound and S2 normal heart sound GI normal to inspection, nondistended, normoactive bowel sounds, soft to palpation and non-distended Extremity normal to inspection Assessment & Plan Assessment/Plan (1) Acute respiratory failure with hypoxia: (2) COVID-19: PLAN: 1. Acute hypoxic respiratory failure * stable * Secondary to worsening COVID-19 * Currently on 12 L nasal cannula and satting at 90%. Verified with the patient that she would want to be intubated if it came to that point. Reassured the patient that we are not near that point at present. * Wean oxygen as able * Pulmonary toilet * Reviewed CT: Changes consistent with COVID-19 pneumonia no infiltrate to suggest bacterial pneumonia at this time. No evidence of pulmonary embolism. 2. COVID 19 pneumonia * onset 03/14, quarantine through 04/03 * continue dexamethasone (was taking at home since the ) add remdesivir * Previously vaccinated with the Ervin & Ervin vaccine 3. Coronary artery disease * Stable * Continue aspirin and statin 4. Hypertension * Stable * Continue with valsartan 5. VTE prophylaxis: Moderate risk. LMWH Charges/Coding Visit Charges Inpatient E&M: 00211 Subs Hosp L2
--- NOTE | 2021-03-25 13:46 | NURSING ---
Assisted back into bed onto side. pt states she can not tolerate laying prone.
--- NOTE | 2021-03-25 15:26 | NURSING ---
Pt called out and said she was having chest pain. This nurse called RT Kaylene and informed her of this and to get an EKG. This nurse in the room at this time assessing pt.
--- NOTE | 2021-03-25 15:31 | EKG12_ITS ---
Test Reason : CP Blood Pressure : / mmHG Vent. Rate : 077 BPM Atrial Rate : 077 BPM P-R Int : 176 ms QRS Dur : 100 ms QT Int : 440 ms P-R-T Axes : -03 008 143 degrees QTc Int : 497 ms Normal sinus rhythm ST & T wave abnormality, consider lateral ischemia Prolonged QT Abnormal ECG When compared with ECG of 17-MAR-2021 14:25, Nonspecific T wave abnormality now evident in Anterior leads Confirmed by ROSIE BROOKS, MAYRA ([id number]), editor farm journal XIAO HURT ([id number]) on 03/27/2021 1:57:53 PM Referred By: KAITY Confirmed By:MAYRA VELEZ MD
--- NOTE | 2021-03-25 15:31 | NURSING ---
EKG being done at this time.
[2021-03-25 17:16] LABS: Troponin-I HS 118 pg/mL (3.0-54.0)
[2021-03-25] MEDS: Ferrous Sulfate 325 MG Tablet PO (18:32)
[2021-03-25] MEDS: Docusate Sodium 100 MG Capsule PO (18:32)
[2021-03-25] MEDS: Lidocaine 5% Patch 2 PATCH TOPICAL (20:47)
[2021-03-25] MEDS: Atorvastatin Calcium 40 MG Tablet PO (20:47)
[2021-03-25] MEDS: Temazepam 15 MG Capsule PO (20:47)
[2021-03-26 06:00] VITALS: BP 143/73; PULSE 83; RESP 18; TEMP 36.4; O2SAT 95
[2021-03-26] MEDS: Acetaminophen 325 MG Tablet 650 MG PO ×2 (06:12→17:48)
[2021-03-26] MEDS: traMADol 50 MG Tablet 100 MG PO ×2 (06:12→17:47)
[2021-03-26 07:04] LABS: Absolute Lymphocyte Count 0.94 X10^3/uL (0.83-4.51); Absolute Neutrophil Count 7.1 X10^3/uL (2.0-7.7); Basophil# 0.03 X10^3/uL; Basophil% 0.3 % (0-1); Eosinophil# 0.19 X10^3/uL; Eosinophils% 2.1 % (0-5); Hematocrit 36.1 % (37-47); Hemoglobin 12.1 g/dL (12.0-15.0); Lymphocyte # 0.94 X10^3/ul (0.83-4.51); Lymphocyte % 10.3 % (19-41); Mean Corp Hgb Conc 33.5 g/dL (32-36); Mean Corpuscular Hgb 27.9 pg (27.0-32.0); Mean Corpuscular Volume 83.4 fL (81-99); Mean Platelet Vol. 11.7 fl (6.2-12.0); Monocyte# 0.46 X10^3/uL; NRBC Flagged by Analyzer 0 % (0-5); Neutrophil # 7.09 X10^3/uL (2.7-7.7); Neutrophil % 77.7 % (47-70); POSITIVE MORPHOLOGY YES; Platelet Count 335 K/mm3 (150-450); RBC Distribution Width CV 21.6 % (11.6-14.6); RBC Distribution Width SD 64.4 fl (35.1-43.9); Red Blood Count 4.33 M/mm3 (4.2-5.4); White Blood Count 9.1 K/mm3 (4.4-11.0)
[2021-03-26 07:16] LABS: Differential Indicated SCAN CRITERIA MET
[2021-03-26 07:33] VITALS: O2SAT 93
[2021-03-26 07:33] LABS: ALB/GLOB Ratio 0.6 RATIO (0.9-2.4); AST(SGOT) 18 U/L (15-37); Alanine Aminotransfer ALT/SGPT 27 U/L (13-56); Albumin, Serum 2.5 g/dL (3.2-5.0); Alkaline Phosphatase 141 U/L (45-117); Anion Gap 8 (5-15); BUN 24 mg/dL (7-18); BUN/Creat Ratio 37.6 RATIO (10-20); Calcium,Total 8.6 mg/dL (8.5-10.1); Chloride 102 mmol/L (98-107); Creatinine, Serum 0.64 mg/dL (0.55-1.02); EST Glomerular Filtration Rate 97 mL/min (>60); Est Glom Filt Rate - Afr Amer 117 mL/min (>60); Estimated Creatinine Clearance 36.53 ml/min; Globulin 3.9 g/dL (2.2-4.2); Glucose 141 mg/dL (74-106); Potassium 3.3 mmol/L (3.5-5.1); Protein, Total 6.4 g/dL (6.4-8.2); Sodium Level 135 mmol/L (136-145)
[2021-03-26 07:52] LABS: Anisocytosis 1+
--- NOTE | 2021-03-26 08:28 | PCS.PANDOC ---
PANDEMIC DOCUMENTATION INITIATED: Date: 12/18/2020 Time: 190
[2021-03-26] MEDS: Aspirin E.C. 81 MG Tablet PO (10:16)
[2021-03-26] MEDS: Enoxaparin 40 MG/0.4 ML Syringe SC (10:16)
[2021-03-26] MEDS: guaiFENesin 1,200 MG Tablet 1200 MG PO ×2 (10:16→20:38)
[2021-03-26] MEDS: Labetalol 200 MG Tablet PO ×2 (10:16→20:38)
[2021-03-26] MEDS: Ferrous Sulfate 325 MG Tablet PO ×2 (10:16→17:48)
[2021-03-26] MEDS: dexAMETHasone 4 MG Tablet 6 MG PO (10:17)
[2021-03-26] MEDS: Losartan Potassium 100 MG Tablet PO (10:17)
[2021-03-26] MEDS: Lidocaine 5% Patch 2 PATCH TOPICAL (10:19)
[2021-03-26] MEDS: 0.9% Saline Lock 10 ML Syringe IV ×3 (10:33→20:37)
--- NOTE | 2021-03-26 10:42 | CASEMGMT ---
ANG ZHANG Assessment: Face to Face with pt for initial transition planning/care coordination assessment. ANG ZHANG introduced self and role at [facility], pt voices understanding and consents to assessment. Pt is A/O x4 and answers all questions appropriately at this time. Pt sitting up in chair with O2 on in no distress. Care providers, pharmacy, and demographics verified/updated. Admitting Dx: COVID 19 PCP:Amish Specialists: Trang, cardio Preferred Pharmacy: [facility] [place] [facility] Pres[facility] Benefit: yes LW/HPOA: Pt states she has a LW/DPOA and her DPOA is her Jeremy Blue. She is aware that this is not on file at [facility] and she may bring in to be scanned into the chart. LNOK: Jeremy Blue, Living Arrangements: Pt lives with in a single story house with 2 steps to enter with a rail. Pt states she was I in ADL's prior to her illness, but states it is more difficult now. Transportation: Pt drives self and denies concerns with transportation. DME/HHC/SNF: Pt has oxygen set up at home, she is unaware of who it is from or how many liters she is on. Pt also has a pulse ox at home. Pt denies hx of HHC or SNF stays. Pt states she was first tested for COVID at [facility]. She states her did have COVID but is now back to work. She does have family who can provide her with groceries and supplies. Pt states no concerns with going home at time of dc. Pt states no further concerns/needs. CM to follow. Advised pt to ask CM if any further question/concerns/needs arise, voices understanding. Pt Goal: Home Plan: Home
--- NOTE | 2021-03-26 10:58 | PCM.PN.HOSP ---
Subjective Subjective Doing well, had a slight increase in her high flow nasal cannula to 15 L. Maintaining her oxygen sats in the low 90s. Objective Data Objective Data Vital Signs: Vital Signs Temp Pulse Resp BP Pulse Ox 97.6 F L 83 18 143/73 H 93 03/26/21 06:00 03/26/21 06:00 03/26/21 06:00 03/26/21 06:00 03/26/21 07:33 Oxygen Flow Rate (L/min) 15 Oxygen Delivery Method Nasal Cannula Weight: 134 lb 14.766 oz Body Mass Index (BMI) 26.4 Intake & Output: Intake and Output for Last 24 Hours 03/25/21 03/26/21 03/27/21 03:59 03:59 03:59 Intake Total 1725 / 1725 1156.50 / 1156.50 Output Total 500 / 500 Balance 1725 / 1725 656.50 / 656.50 Lab / Micro Data Result Diagrams: 03/26/21 06:30 03/26/21 06:30 Labs: Laboratory Results - last 24 hr 03/25/21 16:32: Troponin I High Sens 118 H 03/26/21 06:30: WBC 9.1, RBC 4.33, Hgb 12.1, Hct 36.1 L, MCV 83.4, MCH 27.9, MCHC 33.5, RDW Std Deviation 64.4 H, RDW Coeff of Douglas 21.6 H, Plt Count 335, MPV 11.7, Immature Gran % (Auto) 4.600 H, Neut % (Auto) 77.7 H, Lymph % (Auto) 10.3 L, [place] % (Auto) 5.0, Eos % (Auto) 2.1, Baso % (Auto) 0.3, Absolute Neuts (auto) 7.1, Absolute Lymphs (auto) 0.94, Nucleated RBC % 0, Anisocytosis 1+ 03/26/21 06:30: Sodium 135 L, Potassium 3.3 L, Chloride 102, Carbon Dioxide 25.0, Anion Gap 8, BUN 24 H, Creatinine 0.64, Estim Creat Clear Calc 36.53, Est GFR (MDRD) Af Amer 117, Est GFR (MDRD) Non-Af 97, BUN/Creatinine Ratio 37.6 H, Glucose 141 H, Calcium 8.6, Total Bilirubin 0.40, AST 18, ALT 27, Alkaline Phosphatase 141 H, Total Protein 6.4, Albumin 2.5 L, Globulin 3.9, Albumin/Globulin Ratio 0.6 L Micro: Microbiology 03/25/21 Unknown Mucosa - Nasopharyngeal Respiratory Panel (PCR) - Final Physical Exam Const alert, oriented x3 and no apparent distress General Appearance: cooperative HEENT normocephalic Mouth: dry mucous membranes Eyes PERRL, EOMs intact bilaterally and conjunctivae normal Neck supple and no JVD Resp normal respiratory effort, no retractions and no use of accessory muscles Auscultation: crackles; Negative for rales, rhonchi or wheezes Cardio regular rate, regular rhythm, S1 normal heart sound, S2 normal heart sound and no murmurs GI soft to palpation, non-tender and non-distended; Negative for hepatosplenomegaly Extremity no clubbing, cyanosis or edema Skin no rashes or lesions noted Neuro no focal motor deficits and no sensory deficits noted Psych affect normal Appearance: appropriate Assessment & Plan Assessment/Plan (1) Acute respiratory failure with hypoxia: (2) COVID-19: PLAN: 1. Acute hypoxic respiratory failure secondary to COVID-19 pneumonia ?Continue with Decadron and remdesivir. Monitor renal function ?If she worsens will obtain a consult for baricitinib from infectious disease ?Continue with incentive spirometry and Pep therapy ?As needed Lasix ?Complete quarantine on 04/03/2021 ?Vaccinated with [employer] 2. HTN/CAD status post CABG/HLD ?Continue with her home blood pressure medications, blood pressure stable ?Continue with Lipitor ?Continue with aspirin DVT: Lovenox Charges/Coding Visit Charges Inpatient E&M: 23727 Subs Hosp L2
[2021-03-26] MEDS: Potassium Chloride Oral Tablet 20 MEQ 40 MEQ PO (12:47)
[2021-03-26 17:38] VITALS: BP 132/72; PULSE 100; RESP 20; TEMP 36.4; O2SAT 93
[2021-03-26] MEDS: Furosemide 20 MG/2 ML VIAL IV (17:48)
[2021-03-26 20:35] VITALS: BP 140/93; PULSE 100; RESP 20; TEMP 36.5; O2SAT 91
[2021-03-26] MEDS: Temazepam 15 MG Capsule PO (20:38)
[2021-03-26] MEDS: Atorvastatin Calcium 40 MG Tablet PO (20:38)
[2021-03-27] VITALS (8 sets, daily range): BP systolic 113–158; BP diastolic 68–77; PULSE 80–101; RESP 18; TEMP 35.9–37.1; O2SAT 91–97
[2021-03-27] MEDS: Acetaminophen 325 MG Tablet 650 MG PO ×4 (01:42→23:21)
[2021-03-27] MEDS: traMADol 50 MG Tablet 100 MG PO ×3 (01:43→21:03)
[2021-03-27 06:50] LABS: Hemoglobin 12.7 g/dL (12.0-15.0); Mean Corp Hgb Conc 32.6 g/dL (32-36); Mean Corpuscular Hgb 27.3 pg (27.0-32.0); Mean Corpuscular Volume 83.9 fL (81-99); Mean Platelet Vol. 11.8 fl (6.2-12.0); POSITIVE COUNT YES; POSITIVE MORPHOLOGY YES; Platelet Count 339 K/mm3 (150-450); RBC Distribution Width CV 21.8 % (11.6-14.6); RBC Distribution Width SD 64.8 fl (35.1-43.9); Red Blood Count 4.65 M/mm3 (4.2-5.4); White Blood Count 10.5 K/mm3 (4.4-11.0)
[2021-03-27 06:53] LABS: ALB/GLOB Ratio 0.7 RATIO (0.9-2.4); AST(SGOT) 20 U/L (15-37); Alanine Aminotransfer ALT/SGPT 25 U/L (13-56); Albumin, Serum 2.5 g/dL (3.2-5.0); Alkaline Phosphatase 140 U/L (45-117); Anion Gap 8 (5-15); BUN 33 mg/dL (7-18); BUN/Creat Ratio 43.8 RATIO (10-20); Calcium,Total 8.7 mg/dL (8.5-10.1); Chloride 102 mmol/L (98-107); Creatinine, Serum 0.75 mg/dL (0.55-1.02); EST Glomerular Filtration Rate 80 mL/min (>60); Est Glom Filt Rate - Afr Amer 97 mL/min (>60); Estimated Creatinine Clearance 36.53 ml/min; Globulin 3.8 g/dL (2.2-4.2); Glucose 173 mg/dL (74-106); Potassium 3.7 mmol/L (3.5-5.1); Protein, Total 6.3 g/dL (6.4-8.2); Sodium Level 135 mmol/L (136-145)
[2021-03-27 06:55] LABS: Differential Indicated MANUAL DIFF; Neutrophil-Segmented 81 % (47-70); Promyelocyte 1 % (0-0); Total Cells Counted 100 (MANUAL DIFF)
[2021-03-27 06:56] LABS: Anisocytosis 1+; Lymphocyte 10 % (19-41); Monocyte 6 % (0-10); Platelet Estimate ADEQUATE (ADEQ)
[2021-03-27 06:57] LABS: Absolute Lymphocyte Count 1.05 X10^3/uL (0.83-4.51); Absolute Neutrophil Count 8.5 X10^3/uL (2.0-7.7); Lymphocyte # 1.05 X10^3/ul (0.83-4.51); Microcytosis 1+; Neutrophil # 8.53 X10^3/uL (2.7-7.7); Ovalocyte RARE
[2021-03-27] MEDS: Labetalol 200 MG Tablet PO ×2 (08:51→21:03)
[2021-03-27] MEDS: dexAMETHasone 4 MG Tablet 6 MG PO (08:51)
[2021-03-27] MEDS: Aspirin E.C. 81 MG Tablet PO (08:51)
[2021-03-27] MEDS: Losartan Potassium 100 MG Tablet PO (08:51)
[2021-03-27] MEDS: Ferrous Sulfate 325 MG Tablet PO ×2 (08:51→16:49)
[2021-03-27] MEDS: guaiFENesin 1,200 MG Tablet 1200 MG PO ×2 (08:52→21:03)
[2021-03-27] MEDS: Enoxaparin 40 MG/0.4 ML Syringe SC (08:52)
[2021-03-27] MEDS: Lidocaine 5% Patch 2 PATCH TOPICAL (08:52)
[2021-03-27] MEDS: 0.9% Saline Lock 10 ML Syringe IV ×2 (10:44→12:17)
--- NOTE | 2021-03-27 11:52 | PN.HOSP_ITS ---
Subjective Subjective Feels same as yesterday. No issues overnight. Still maintaining her oxygen saturations on 15 L nasal cannula. Objective Data Objective Data Vital Signs: Vital Signs Temp Pulse Resp BP Pulse Ox 98.7 F 101 H 18 127/77 H 92 03/27/21 08:57 03/27/21 08:57 03/27/21 08:57 03/27/21 08:57 03/27/21 09:00 Oxygen Flow Rate (L/min) 15 Oxygen Delivery Method Nasal Cannula Weight: 134 lb 14.766 oz Body Mass Index (BMI) 26.4 Intake & Output: Intake and Output for Last 24 Hours 03/26/21 03/27/21 03/28/21 03:59 03:59 03:59 Intake Total 1156.50 / 1156.50 770 / 770 Output Total 500 / 500 Balance 656.50 / 656.50 770 / 770 Lab / Micro Data Result Diagrams: 03/27/21 05:34 03/27/21 05:34 Labs: Laboratory Results - last 24 hr 03/27/21 05:34: WBC Cancelled, Corrected WBC Cancelled, RBC Cancelled, Hgb Cancelled, Hct Cancelled, MCV Cancelled, MCH Cancelled, MCHC Cancelled, RDW Std Deviation Cancelled, RDW Coeff of Douglas Cancelled, Plt Count Cancelled, MPV Cancelled, Immature Gran % (Auto) Cancelled, Neut % (Auto) Cancelled, Lymph % (Auto) Cancelled, [place] % (Auto) Cancelled, Eos % (Auto) Cancelled, Baso % (Auto) Cancelled, Absolute Neuts (auto) Cancelled, Absolute Lymphs (auto) Cancelled, Total Counted Cancelled, Neutrophils % (Manual) Cancelled, Band Neutrophils % Cancelled, Lymphocytes % (Manual) Cancelled, Monocytes % (Manual) Cancelled, Eosinophils % (Manual) Cancelled, Basophils % (Manual) Cancelled, Metamyelocytes % Cancelled, Myelocytes % Cancelled, Promyelocytes % Cancelled, Blast Cells % Cancelled, Plasma Cell % (Manual) Cancelled, Other Cells % Cancelled, Nucleated RBC % Cancelled, Nucleated RBCs/100 WBC Cancelled, Differential Comment Cancelled, Diff Path Review Cancelled, Hypersegmented Neuts Cancelled, Atypical Lymphocytes Cancelled, Reactive Lymphocytes Cancelled, Smudge Cells Cancelled, Toxic Granulation Cancelled, Toxic Vacuolation Cancelled, Dohle Bodies Cancelled, Orlando Rods Cancelled, Platelet Estimate Cancelled, Plt Morphology Comment Cancelled, RBC Morphology Cancelled, Polychromasia Cancelled, Hypochromasia Cancelled, Poikilocytosis Cancelled, Basophilic Stippling Cance lled, Anisocytosis Cancelled, Microcytosis Cancelled, Macrocytosis Cancelled, Spherocytes Cancelled, Sickle Cells Cancelled, Target Cells Cancelled, Tear Drop Cells Cancelled, Ovalocytes Cancelled, Stomatocytes Cancelled, Rivera-Eskridge Bodies Cancelled, Jacob Cells Cancelled, Bite Cells Cancelled, Crenated Cell Cancelled, Acanthocytes (Spur) Cancelled, Rouleaux Cancelled, Schistocytes Cancelled 03/27/21 05:34: Sodium 135 L, Potassium 3.7, Chloride 102, Carbon Dioxide 25.0, Anion Gap 8, BUN 33 H, Creatinine 0.75, Estim Creat Clear Calc 36.53, Est GFR (MDRD) Af Amer 97, Est GFR (MDRD) Non-Af 80, BUN/Creatinine Ratio 43.8 H, Glucose 173 H, Calcium 8.7, Total Bilirubin 0.20, AST 20, ALT 25, Alkaline Phosphatase 140 H, Total Protein 6.3 L, Albumin 2.5 L, Globulin 3.8, Albumin/Globulin Ratio 0.7 L 03/27/21 05:34: WBC 10.5, RBC 4.65, Hgb 12.7, Hct 39.0, MCV 83.9, MCH 27.3, MCHC 32.6, RDW Std Deviation 64.8 H, RDW Coeff of Douglas 21.8 H, Plt Count 339, MPV 11.8, Neut % (Auto) Not Reportable, Absolute Neuts (auto) 8.5 H, Absolute Lymphs (auto) 1.05, Total Counted 100, Neutrophils % (Manual) 81 H, Lymphocytes % (Manual) 10 L, Monocytes % (Manual) 6, Promyelocytes % 1 H, Diff Path Review September, Platelet Estimate ADEQUATE, Anisocytosis 1+, Microcytosis 1+, Ovalocytes RARE Micro: Microbiology 03/24/21 08:30 Blood Culture (Wb) - Anticubital Left Blood Culture - Preliminary No growth in 48 hours. 03/24/21 08:30 Blood Culture (Wb) - Left Hand Blood Culture - Preliminary No growth in 48 hours. 03/25/21 Unknown Mucosa - Nasopharyngeal Respiratory Panel (PCR) - Final Physical Exam Const alert, oriented x3 and no apparent distress General Appearance: cooperative HEENT normocephalic Eyes PERRL, EOMs intact bilaterally and conjunctivae normal Neck supple and no JVD Resp normal respiratory effort, no retractions and no use of accessory muscles Auscultation: crackles; Negative for rales, rhonchi or wheezes Cardio regular rate, regular rhythm, S1 normal heart sound, S2 normal heart sound and no murmurs GI soft to palpation, non-tender and non-distended; Negative for hepatosplenomegaly Extremity no clubbing, cyanosis or edema Skin no rashes or lesions noted Neuro no focal motor deficits and no sensory deficits noted Psych affect normal Appearance: appropriate Assessment & Plan Assessment/Plan (1) Acute respiratory failure with hypoxia: (2) COVID-19: PLAN: 1. Acute hypoxic respiratory failure secondary to COVID-19 pneumonia ?Continue with Decadron and remdesivir. Monitor renal function ?If she worsens will obtain a consult for baricitinib from infectious disease ?Continue with incentive spirometry and Pep therapy ?As needed Lasix ?Complete quarantine on 04/03/2021 ?Vaccinated with Ervin & Ervin 2. HTN/CAD status post CABG/HLD ?Continue with her home blood pressure medications, blood pressure stable ?Continue with Lipitor ?Continue with aspirin DVT: Lovenox Charges/Coding Visit Charges Inpatient E&M: 05375 Subs Hosp L2
[2021-03-27] MEDS: Furosemide 40 MG/4 ML Vial IV (12:16)
[2021-03-27] MEDS: Atorvastatin Calcium 40 MG Tablet PO (21:03)
[2021-03-27] MEDS: Temazepam 15 MG Capsule PO (21:03)
[2021-03-27] MEDS: Mag Hydrox/Al Hydrox/Simeth 30 ML UDC PO (22:00)
[2021-03-28 03:00] VITALS: BP 132/85; PULSE 90; RESP 18; TEMP 36.6; O2SAT 95
[2021-03-28] MEDS: traMADol 50 MG Tablet 100 MG PO ×3 (05:07→20:40)
[2021-03-28] MEDS: BENZOCAINE/MENTHOL 1 LOZENGE 2 LOZENGE MUCOUS MEM ×2 (05:07→15:16)
[2021-03-28 07:27] LABS: Absolute Lymphocyte Count 1.25 X10^3/uL (0.83-4.51); Absolute Neutrophil Count 10.3 X10^3/uL (2.0-7.7); Basophil# 0.07 X10^3/uL; Basophil% 0.5 % (0-1); Eosinophils% 1.5 % (0-5); Hematocrit 39.5 % (37-47); Hemoglobin 13.1 g/dL (12.0-15.0); Lymphocyte # 1.25 X10^3/ul (0.83-4.51); Lymphocyte % 9.5 % (19-41); Mean Corp Hgb Conc 33.2 g/dL (32-36); Mean Corpuscular Hgb 27.3 pg (27.0-32.0); Mean Corpuscular Volume 82.5 fL (81-99); Mean Platelet Vol. 11.8 fl (6.2-12.0); Monocyte% 6.1 % (0-10); NRBC Flagged by Analyzer 0 % (0-5); Neutrophil # 10.29 X10^3/uL (2.7-7.7); POSITIVE MORPHOLOGY YES; Platelet Count 311 K/mm3 (150-450); RBC Distribution Width CV 21.6 % (11.6-14.6); RBC Distribution Width SD 63.9 fl (35.1-43.9); Red Blood Count 4.79 M/mm3 (4.2-5.4); White Blood Count 13.2 K/mm3 (4.4-11.0)
[2021-03-28 07:28] LABS: Differential Indicated SCAN CRITERIA MET
[2021-03-28 08:01] LABS: ALB/GLOB Ratio 0.6 RATIO (0.9-2.4); AST(SGOT) 22 U/L (15-37); Alanine Aminotransfer ALT/SGPT 28 U/L (13-56); Albumin, Serum 2.5 g/dL (3.2-5.0); Alkaline Phosphatase 151 U/L (45-117); Anion Gap 10 (5-15); BUN 32 mg/dL (7-18); BUN/Creat Ratio 48.7 RATIO (10-20); Chloride 97 mmol/L (98-107); Creatinine, Serum 0.66 mg/dL (0.55-1.02); EST Glomerular Filtration Rate 94 mL/min (>60); Est Glom Filt Rate - Afr Amer 114 mL/min (>60); Estimated Creatinine Clearance 36.53 ml/min; Glucose 206 mg/dL (74-106); Potassium 3.5 mmol/L (3.5-5.1); Protein, Total 6.5 g/dL (6.4-8.2); Sodium Level 134 mmol/L (136-145)
[2021-03-28 08:20] VITALS: O2SAT 98
[2021-03-28 08:51] LABS: Anisocytosis 1+; Platelet Estimate ADEQUATE (ADEQ)
[2021-03-28 09:30] VITALS: BP 123/78; PULSE 99; RESP 16; TEMP 36.6; O2SAT 93
[2021-03-28] MEDS: Lidocaine 5% Patch 2 PATCH TOPICAL (09:35)
[2021-03-28] MEDS: Ferrous Sulfate 325 MG Tablet PO ×2 (09:36→16:49)
[2021-03-28] MEDS: dexAMETHasone 4 MG Tablet 6 MG PO (09:36)
[2021-03-28] MEDS: Aspirin E.C. 81 MG Tablet PO (09:36)
[2021-03-28] MEDS: Labetalol 200 MG Tablet PO ×2 (09:36→20:40)
[2021-03-28] MEDS: guaiFENesin 1,200 MG Tablet 1200 MG PO ×2 (09:36→20:40)
[2021-03-28] MEDS: Enoxaparin 40 MG/0.4 ML Syringe SC (09:36)
[2021-03-28] MEDS: Acetaminophen 325 MG Tablet 650 MG PO ×3 (09:36→23:34)
[2021-03-28] MEDS: Losartan Potassium 100 MG Tablet PO (09:36)
[2021-03-28] MEDS: 0.9% Saline Lock 10 ML Syringe IV ×2 (09:37→15:17)
--- NOTE | 2021-03-28 09:39 | NURSING ---
pt requested this RN call update to her son Tejas Delaney,
[2021-03-28 09:51] LABS: Pathologist Review Reviewed
--- NOTE | 2021-03-28 10:09 | PCM.PN.HOSP ---
Subjective Subjective Doing well, remains unchanged. Feels much better than when she came in. She is currently down to 12 L nasal cannula. Objective Data Objective Data Vital Signs: Vital Signs Temp Pulse Resp BP Pulse Ox 97.8 F 99 16 123/78 H 93 03/28/21 09:30 03/28/21 09:30 03/28/21 09:30 03/28/21 09:30 03/28/21 09:30 Oxygen Flow Rate (L/min) 10 Oxygen Delivery Method Nasal Cannula Weight: 134 lb 14.766 oz Body Mass Index (BMI) 26.4 Intake & Output: Intake and Output for Last 24 Hours 03/27/21 03/28/21 03/29/21 03:59 03:59 03:59 Intake Total 770 / 770 1000 / 1000 Output Total 800 / 800 Balance 770 / 770 200 / 200 Lab / Micro Data Result Diagrams: 03/28/21 06:58 03/28/21 06:58 Labs: Laboratory Results - last 24 hr 03/27/21 05:34: Diff Path Review Reviewed 03/28/21 06:58: WBC 13.2 H, RBC 4.79, Hgb 13.1, Hct 39.5, MCV 82.5, MCH 27.3, MCHC 33.2, RDW Std Deviation 63.9 H, RDW Coeff of [place] 21.6 H, Plt Count 311, MPV 11.8, Immature Gran % (Auto) 4.400 H, Neut % (Auto) 78.0 H, Lymph % (Auto) 9.5 L, [place] % (Auto) 6.1, Eos % (Auto) 1.5, Baso % (Auto) 0.5, Absolute Neuts (auto) 10.3 H, Absolute Lymphs (auto) 1.25, Nucleated RBC % 0, Platelet Estimate ADEQUATE, Anisocytosis 1+ 03/28/21 06:58: Sodium 134 L, Potassium 3.5, Chloride 97 L, Carbon Dioxide 27.0, Anion Gap 10, BUN 32 H, Creatinine 0.66, Estim Creat Clear Calc 36.53, Est GFR (MDRD) Af Amer 114, Est GFR (MDRD) Non-Af 94, BUN/Creatinine Ratio 48.7 H, Glucose 206 H, Calcium 9.0, Total Bilirubin 0.20, AST 22, ALT 28, Alkaline Phosphatase 151 H, Total Protein 6.5, Albumin 2.5 L, Globulin 4.0, Albumin/Globulin Ratio 0.6 L Micro: Microbiology 03/24/21 08:30 Blood Culture (Wb) - Anticubital Left Blood Culture - Preliminary No growth in 48 hours. 03/24/21 08:30 Blood Culture (Wb) - Left Hand Blood Culture - Preliminary No growth in 48 hours. 03/25/21 Unknown Mucosa - Nasopharyngeal Respiratory Panel (PCR) - Final Physical Exam Const alert, oriented x3 and no apparent distress General Appearance: cooperative HEENT normocephalic and moist oral mucous membranes Eyes PERRL, EOMs intact bilaterally and conjunctivae normal Neck no lymphadenopathy, supple and no JVD Resp normal respiratory effort, no retractions and no use of accessory muscles Auscultation: crackles; Negative for rales, rhonchi or wheezes Cardio regular rate, regular rhythm, S1 normal heart sound, S2 normal heart sound and no murmurs GI soft to palpation, non-tender and non-distended; Negative for hepatosplenomegaly Extremity no clubbing, cyanosis or edema Skin no rashes or lesions noted Neuro no focal motor deficits and no sensory deficits noted Psych affect normal Appearance: appropriate Assessment & Plan Assessment/Plan (1) Acute respiratory failure with hypoxia: (2) COVID-19: PLAN: 1. Acute hypoxic respiratory failure secondary to COVID-19 pneumonia ?Continue with Decadron and remdesivir. Monitor renal function ?If she worsens will obtain a consult for baricitinib from infectious disease ?Continue with incentive spirometry and Pep therapy ?As needed Lasix ?Complete quarantine on 04/03/2021 ?Vaccinated with [employer] 2. HTN/CAD status post CABG/HLD ?Continue with her home blood pressure medications, blood pressure stable ?Continue with Lipitor ?Continue with aspirin DVT: Lovenox Charges/Coding Visit Charges Inpatient E&M: 87921 Subs Hosp L2
[2021-03-28 15:15] VITALS: BP 115/69; PULSE 87; RESP 16; TEMP 36.2; O2SAT 96
[2021-03-28] MEDS: Furosemide 40 MG/4 ML Vial IV (15:16)
[2021-03-28] MEDS: Temazepam 15 MG Capsule PO (20:40)
[2021-03-28] MEDS: Atorvastatin Calcium 40 MG Tablet PO (20:40)
[2021-03-28 20:43] VITALS: BP 155/88; PULSE 99; RESP 18; TEMP 36.7; O2SAT 92
[2021-03-28 23:36] VITALS: BP 110/70; PULSE 76; RESP 18; TEMP 36.7; O2SAT 94
[2021-03-29] VITALS (10 sets, daily range): BP systolic 113–145; BP diastolic 67–92; PULSE 79–95; RESP 19–22; TEMP 35.7–36.8; O2SAT 91–97
[2021-03-29] MEDS: traMADol 50 MG Tablet 100 MG PO ×3 (02:53→20:44)
[2021-03-29 07:29] LABS: Absolute Lymphocyte Count 1.39 X10^3/uL (0.83-4.51); Absolute Neutrophil Count 8.5 X10^3/uL (2.0-7.7); Basophil# 0.04 X10^3/uL; Basophil% 0.3 % (0-1); Eosinophil# 0.23 X10^3/uL; Hematocrit 40.1 % (37-47); Hemoglobin 13.3 g/dL (12.0-15.0); Lymphocyte # 1.39 X10^3/ul (0.83-4.51); Mean Corp Hgb Conc 33.2 g/dL (32-36); Mean Corpuscular Hgb 27.9 pg (27.0-32.0); Mean Corpuscular Volume 84.2 fL (81-99); Monocyte# 0.91 X10^3/uL; Monocyte% 7.8 % (0-10); NRBC Flagged by Analyzer 0 % (0-5); Neutrophil # 8.49 X10^3/uL (2.7-7.7); Neutrophil % 73.2 % (47-70); POSITIVE MORPHOLOGY YES; Platelet Count 357 K/mm3 (150-450); RBC Distribution Width CV 21.5 % (11.6-14.6); RBC Distribution Width SD 64.8 fl (35.1-43.9); Red Blood Count 4.76 M/mm3 (4.2-5.4); White Blood Count 11.6 K/mm3 (4.4-11.0)
[2021-03-29 07:30] LABS: Differential Indicated SCAN CRITERIA MET
[2021-03-29 07:59] LABS: ALB/GLOB Ratio 0.6 RATIO (0.9-2.4); AST(SGOT) 19 U/L (15-37); Alanine Aminotransfer ALT/SGPT 29 U/L (13-56); Albumin, Serum 2.7 g/dL (3.2-5.0); Alkaline Phosphatase 155 U/L (45-117); Anion Gap 7 (5-15); BUN 34 mg/dL (7-18); BUN/Creat Ratio 43.3 RATIO (10-20); Chloride 95 mmol/L (98-107); Creatinine, Serum 0.79 mg/dL (0.55-1.02); EST Glomerular Filtration Rate 76 mL/min (>60); Est Glom Filt Rate - Afr Amer 92 mL/min (>60); Estimated Creatinine Clearance 36.53 ml/min; Globulin 4.2 g/dL (2.2-4.2); Glucose 173 mg/dL (74-106); Potassium 4.2 mmol/L (3.5-5.1); Protein, Total 6.9 g/dL (6.4-8.2); Sodium Level 132 mmol/L (136-145)
--- NOTE | 2021-03-29 09:50 | PN.HOSP_ITS ---
Subjective Subjective Well, no issues overnight. She is down to 9 L nasal cannula. Objective Data Objective Data Vital Signs: Vital Signs Temp Pulse Resp BP Pulse Ox 97.9 F 88 19 H 145/80 H 95 03/29/21 04:47 03/29/21 04:47 03/29/21 04:47 03/29/21 04:47 03/29/21 04:47 Oxygen Flow Rate (L/min) 9 Oxygen Delivery Method Nasal Cannula Weight: 134 lb 14.766 oz Body Mass Index (BMI) 26.4 Intake & Output: Intake and Output for Last 24 Hours 03/28/21 03/29/21 03/30/21 03:59 03:59 03:59 Intake Total 1000 / 1000 1350 / 1350 360 / 360 Output Total 800 / 800 500 / 500 Balance 200 / 200 850 / 850 360 / 360 Lab / Micro Data Result Diagrams: 03/29/21 07:15 03/29/21 07:15 Labs: Laboratory Results - last 24 hr 03/27/21 05:34: Diff Path Review Reviewed 03/29/21 07:15: WBC 11.6 H, RBC 4.76, Hgb 13.3, Hct 40.1, MCV 84.2, MCH 27.9, MCHC 33.2, RDW Std Deviation 64.8 H, RDW Coeff of [place] 21.5 H, Plt Count 357, MPV 12.0, Immature Gran % (Auto) 4.700 H, Neut % (Auto) 73.2 H, Lymph % (Auto) 12.0 L, [place] % (Auto) 7.8, Eos % (Auto) 2.0, Baso % (Auto) 0.3, Absolute Neuts (auto) 8.5 H, Absolute Lymphs (auto) 1.39, Nucleated RBC % 0 03/29/21 07:15: Sodium 132 L, Potassium 4.2, Chloride 95 L, Carbon Dioxide 30.0, Anion Gap 7, BUN 34 H, Creatinine 0.79, Estim Creat Clear Calc 36.53, Est GFR (MDRD) Af Amer 92, Est GFR (MDRD) Non-Af 76, BUN/Creatinine Ratio 43.3 H, Glucose 173 H, Calcium 9.0, Total Bilirubin 0.30, AST 19, ALT 29, Alkaline Phosphatase 155 H, Total Protein 6.9, Albumin 2.7 L, Globulin 4.2, Albumin/Globulin Ratio 0.6 L Micro: Microbiology 03/24/21 08:30 Blood Culture (Wb) - Anticubital Left Blood Culture - Preliminary No growth in 48 hours. 03/24/21 08:30 Blood Culture (Wb) - Left Hand Blood Culture - Preliminary No growth in 48 hours. 03/25/21 Unknown Mucosa - Nasopharyngeal Respiratory Panel (PCR) - Final Physical Exam Const alert, oriented x3 and no apparent distress General Appearance: cooperative HEENT normocephalic and moist oral mucous membranes Eyes PERRL, EOMs intact bilaterally and conjunctivae normal Neck no lymphadenopathy, supple and no JVD Resp normal respiratory effort, no retractions and no use of accessory muscles Auscultation: crackles; Negative for rales, rhonchi or wheezes Cardio regular rate, regular rhythm, S1 normal heart sound, S2 normal heart sound and no murmurs GI soft to palpation, non-tender and non-distended; Negative for hepatosplenomegaly Extremity no clubbing, cyanosis or edema Skin no rashes or lesions noted Neuro no focal motor deficits and no sensory deficits noted Psych affect normal Appearance: appropriate Assessment & Plan Assessment/Plan (1) Acute respiratory failure with hypoxia: (2) COVID-19: PLAN: 1. Acute hypoxic respiratory failure secondary to COVID-19 pneumonia ?Continue with Decadron, she has completed remdesivir ?If she worsens will obtain a consult for baricitinib from infectious disease ?Continue with incentive spirometry and Pep therapy ?As needed Lasix ?Complete quarantine on 04/03/2021 ?Vaccinated with [employer] 2. HTN/CAD status post CABG/HLD ?Continue with her home blood pressure medications, blood pressure stable ?Continue with Lipitor ?Continue with aspirin DVT: Lovenox Charges/Coding Visit Charges Inpatient E&M: 97102 Subs Hosp L2
[2021-03-29] MEDS: Lidocaine 5% Patch 2 PATCH TOPICAL (10:29)
[2021-03-29] MEDS: Ferrous Sulfate 325 MG Tablet PO ×2 (10:30→16:18)
[2021-03-29] MEDS: dexAMETHasone 4 MG Tablet 6 MG PO (10:30)
[2021-03-29] MEDS: Losartan Potassium 100 MG Tablet PO (10:30)
[2021-03-29] MEDS: Enoxaparin 40 MG/0.4 ML Syringe SC (10:30)
[2021-03-29] MEDS: Labetalol 200 MG Tablet PO ×2 (10:30→20:43)
[2021-03-29] MEDS: Aspirin E.C. 81 MG Tablet PO (10:30)
[2021-03-29] MEDS: Furosemide 40 MG/4 ML Vial IV (10:31)
[2021-03-29] MEDS: guaiFENesin 1,200 MG Tablet 1200 MG PO ×2 (10:31→20:43)
[2021-03-29] MEDS: Docusate Sodium 100 MG Capsule PO ×2 (10:37→20:43)
[2021-03-29] MEDS: Acetaminophen 325 MG Tablet 650 MG PO (10:39)
[2021-03-29] MEDS: Ondansetron 4 MG/2 ML Vial IV (16:18)
[2021-03-29] MEDS: 0.9% Saline Lock 10 ML Syringe IV ×2 (16:18→20:41)
[2021-03-29] MEDS: Temazepam 15 MG Capsule PO (20:44)
[2021-03-29] MEDS: Atorvastatin Calcium 40 MG Tablet PO (20:44)
[2021-03-30] VITALS (11 sets, daily range): BP systolic 105–141; BP diastolic 54–83; PULSE 80–99; RESP 18–28; TEMP 36.1–36.9; O2SAT 79–97
[2021-03-30] MEDS: Acetaminophen 325 MG Tablet 650 MG PO ×3 (00:45→21:53)
[2021-03-30] MEDS: traMADol 50 MG Tablet 100 MG PO ×2 (04:43→21:11)
[2021-03-30 07:04] LABS: Anion Gap 6 (5-15); BUN 31 mg/dL (7-18); BUN/Creat Ratio 43.4 RATIO (10-20); Calcium,Total 8.7 mg/dL (8.5-10.1); Chloride 94 mmol/L (98-107); Creatinine, Serum 0.71 mg/dL (0.55-1.02); EST Glomerular Filtration Rate 85 mL/min (>60); Est Glom Filt Rate - Afr Amer 103 mL/min (>60); Estimated Creatinine Clearance 36.53 ml/min; Glucose 188 mg/dL (74-106); Potassium 4.3 mmol/L (3.5-5.1); Sodium Level 129 mmol/L (136-145)
--- NOTE | 2021-03-30 08:47 | CASEMGMT ---
TC to [facility], spoke with Jovita, pt rx is 2L continuous.
[2021-03-30] MEDS: Lidocaine 5% Patch 2 PATCH TOPICAL (10:13)
[2021-03-30] MEDS: Labetalol 200 MG Tablet PO ×2 (10:13→21:04)
[2021-03-30] MEDS: dexAMETHasone 4 MG Tablet 6 MG PO (10:14)
[2021-03-30] MEDS: Ferrous Sulfate 325 MG Tablet PO ×2 (10:14→18:32)
[2021-03-30] MEDS: Losartan Potassium 100 MG Tablet PO (10:14)
[2021-03-30] MEDS: Aspirin E.C. 81 MG Tablet PO (10:14)
[2021-03-30] MEDS: guaiFENesin 1,200 MG Tablet 1200 MG PO ×2 (10:14→21:04)
[2021-03-30] MEDS: Docusate Sodium 100 MG Capsule PO ×2 (10:14→21:04)
[2021-03-30] MEDS: Enoxaparin 40 MG/0.4 ML Syringe SC (10:14)
--- NOTE | 2021-03-30 10:18 | PCM.PN.HOSP ---
Subjective Subjective Doing well, breathing much better today. She is down to 4 L nasal cannula Objective Data Objective Data Vital Signs: Vital Signs Temp Pulse Resp BP Pulse Ox 97.2 F L 80 24 H 141/83 H 91 03/30/21 07:43 03/30/21 07:43 03/30/21 07:43 03/30/21 07:43 03/30/21 07:44 Oxygen Flow Rate (L/min) [ 6 AMBULATING with Oxygen #3] Oxygen Flow Rate (L/min) [ 5 AMBULATING with Oxygen #2] Oxygen Flow Rate (L/min) [ 4 AMBULATING with Oxygen #1] Oxygen Flow Rate (L/min) [At 4 REST with Oxygen] Oxygen Flow Rate (L/min) 4 Oxygen Delivery Method Nasal Cannula Weight: 134 lb 14.766 oz Body Mass Index (BMI) 26.4 Intake & Output: Intake and Output for Last 24 Hours 03/29/21 03/30/21 03/31/21 03:59 03:59 03:59 Intake Total 1350 / 1350 360 / 360 300 / 300 Output Total 500 / 500 Balance 850 / 850 360 / 360 300 / 300 Lab / Micro Data Result Diagrams: 03/29/21 07:15 03/30/21 06:12 Labs: Laboratory Results - last 24 hr 03/30/21 06:12: Sodium 129 L, Potassium 4.3, Chloride 94 L, Carbon Dioxide 29.0, Anion Gap 6, BUN 31 H, Creatinine 0.71, Estim Creat Clear Calc 36.53, Est GFR (MDRD) Af Amer 103, Est GFR (MDRD) Non-Af 85, BUN/Creatinine Ratio 43.4 H, Glucose 188 H, Calcium 8.7 Micro: Microbiology 03/24/21 08:30 Blood Culture (Wb) - Anticubital Left Blood Culture - Final No growth in 5 days. 03/24/21 08:30 Blood Culture (Wb) - Left Hand Blood Culture - Final No growth in 5 days. 03/25/21 Unknown Mucosa - Nasopharyngeal Respiratory Panel (PCR) - Final Physical Exam Const alert, oriented x3 and no apparent distress General Appearance: cooperative HEENT normocephalic and moist oral mucous membranes Eyes PERRL, EOMs intact bilaterally and conjunctivae normal Neck no lymphadenopathy, supple and no JVD Resp normal respiratory effort, no retractions and no use of accessory muscles Auscultation: crackles; Negative for rales, rhonchi or wheezes Cardio regular rate, regular rhythm, S1 normal heart sound, S2 normal heart sound and no murmurs GI soft to palpation, non-tender and non-distended; Negative for hepatosplenomegaly Extremity no clubbing, cyanosis or edema Skin no rashes or lesions noted Neuro no focal motor deficits and no sensory deficits noted Psych affect normal Appearance: appropriate Assessment & Plan Assessment/Plan (1) Acute respiratory failure with hypoxia: (2) COVID-19: PLAN: 1. Acute hypoxic respiratory failure secondary to COVID-19 pneumonia ?Continue with Decadron, she has completed remdesivir ?If she worsens will obtain a consult for baricitinib from infectious disease ?Continue with incentive spirometry and Pep therapy ?As needed Lasix ?Complete quarantine on 04/03/2021 ?Vaccinated with Ervin [employer] Ervin ?We will plan for an ambulatory pulse ox today 2. HTN/CAD status post CABG/HLD ?Continue with her home blood pressure medications, blood pressure stable ?Continue with Lipitor ?Continue with aspirin DVT: Lovenox Charges/Coding Visit Charges Inpatient E&M: 04653 Subs Hosp L2
[2021-03-30] MEDS: 0.9% Saline Lock 10 ML Syringe IV (11:10)
[2021-03-30] MEDS: Furosemide 40 MG/4 ML Vial IV (11:10)
[2021-03-30] MEDS: Polyethylene Glycol 3350 17 GM PACKET PO ×2 (11:10→21:04)
[2021-03-30] MEDS: Bisacodyl 10 MG Suppository RC (18:32)
[2021-03-30] MEDS: Atorvastatin Calcium 40 MG Tablet PO (21:04)
[2021-03-30] MEDS: Temazepam 15 MG Capsule PO (21:12)
[2021-03-30] MEDS: Magnesium Citrate 300 ML 150 ML PO (21:53)
[2021-03-31 03:34] VITALS: BP 128/68; PULSE 77; RESP 18; TEMP 36.4; O2SAT 94
[2021-03-31] MEDS: traMADol 50 MG Tablet 100 MG PO ×2 (06:37→18:28)
[2021-03-31] MEDS: Acetaminophen 325 MG Tablet 650 MG PO ×2 (06:40→18:29)
[2021-03-31 07:01] LABS: Anion Gap 7 (5-15); BUN 29 mg/dL (7-18); BUN/Creat Ratio 47.5 RATIO (10-20); Calcium,Total 8.4 mg/dL (8.5-10.1); Chloride 94 mmol/L (98-107); Creatinine, Serum 0.61 mg/dL (0.55-1.02); EST Glomerular Filtration Rate 102 mL/min (>60); Est Glom Filt Rate - Afr Amer 124 mL/min (>60); Estimated Creatinine Clearance 36.53 ml/min; Glucose 209 mg/dL (74-106); Potassium 4.6 mmol/L (3.5-5.1); Sodium Level 129 mmol/L (136-145)
[2021-03-31 07:12] VITALS: O2SAT 87; O2SAT 91
[2021-03-31 08:00] VITALS: O2SAT 92
[2021-03-31 09:34] VITALS: BP 123/68; PULSE 103; RESP 18; TEMP 35.8; O2SAT 92
[2021-03-31] MEDS: Ferrous Sulfate 325 MG Tablet PO ×2 (09:46→16:15)
[2021-03-31] MEDS: Labetalol 200 MG Tablet PO ×2 (09:47→23:17)
[2021-03-31] MEDS: Lidocaine 5% Patch 2 PATCH TOPICAL (09:47)
[2021-03-31] MEDS: Aspirin E.C. 81 MG Tablet PO (09:47)
[2021-03-31] MEDS: guaiFENesin 1,200 MG Tablet 1200 MG PO ×2 (09:47→23:17)
[2021-03-31] MEDS: Losartan Potassium 100 MG Tablet PO (09:47)
[2021-03-31] MEDS: dexAMETHasone 4 MG Tablet 6 MG PO (09:47)
[2021-03-31] MEDS: Polyethylene Glycol 3350 17 GM PACKET PO (09:47)
[2021-03-31] MEDS: Enoxaparin 40 MG/0.4 ML Syringe SC (09:47)
--- NOTE | 2021-03-31 10:41 | PCM.PN.HOSP ---
Subjective Subjective Appears to be slowly improving, her oxygen saturations remain obtained on her on 4 L nasal cannula will provide another dose of Lasix today and do an ambulatory pulse ox. Objective Data Objective Data Vital Signs: Vital Signs Temp Pulse Resp BP Pulse Ox 97.5 F L 77 18 128/68 H 92 03/31/21 03:34 03/31/21 03:34 03/31/21 03:34 03/31/21 03:34 03/31/21 08:00 Oxygen Flow Rate (L/min) [ 6 AMBULATING with Oxygen #3] Oxygen Flow Rate (L/min) [ 5 AMBULATING with Oxygen #2] Oxygen Flow Rate (L/min) [ 4 AMBULATING with Oxygen #1] Oxygen Flow Rate (L/min) [At 4 REST with Oxygen] Oxygen Flow Rate (L/min) 5 Oxygen Delivery Method Nasal Cannula Weight: 134 lb 14.766 oz Body Mass Index (BMI) 26.4 Intake & Output: Intake and Output for Last 24 Hours 03/30/21 03/31/21 04/01/21 03:59 03:59 03:59 Intake Total 360 / 360 1500 / 1500 300 / 300 Balance 360 / 360 1500 / 1500 300 / 300 Lab / Micro Data Result Diagrams: 03/29/21 07:15 03/31/21 06:16 Labs: Laboratory Results - last 24 hr 03/31/21 06:16: Sodium 129 L, Potassium 4.6, Chloride 94 L, Carbon Dioxide 28.0, Anion Gap 7, BUN 29 H, Creatinine 0.61, Estim Creat Clear Calc 36.53, Est GFR (MDRD) Af Amer 124, Est GFR (MDRD) Non-Af 102, BUN/Creatinine Ratio 47.5 H, Glucose 209 H, Calcium 8.4 L Micro: Microbiology 03/24/21 08:30 Blood Culture (Wb) - Anticubital Left Blood Culture - Final No growth in 5 days. 03/24/21 08:30 Blood Culture (Wb) - Left Hand Blood Culture - Final No growth in 5 days. 03/25/21 Unknown Mucosa - Nasopharyngeal Respiratory Panel (PCR) - Final Physical Exam Const alert, oriented x3 and no apparent distress General Appearance: cooperative HEENT normocephalic and moist oral mucous membranes Eyes PERRL, EOMs intact bilaterally and conjunctivae normal Neck no lymphadenopathy, supple and no JVD Resp normal respiratory effort, no retractions and no use of accessory muscles Auscultation: crackles; Negative for rales, rhonchi or wheezes Cardio regular rate, regular rhythm, S1 normal heart sound, S2 normal heart sound and no murmurs GI soft to palpation, non-tender and non-distended; Negative for hepatosplenomegaly Extremity no clubbing, cyanosis or edema Skin no rashes or lesions noted Neuro no focal motor deficits and no sensory deficits noted Psych affect normal Appearance: appropriate Assessment & Plan Assessment/Plan (1) Acute respiratory failure with hypoxia: (2) COVID-19: PLAN: 1. Acute hypoxic respiratory failure secondary to COVID-19 pneumonia ?Based on outpatient data and the Decadron she received, she has completed her course of Decadron, she has completed remdesivir ?If she worsens will obtain a consult for baricitinib from infectious disease ?Continue with incentive spirometry and Pep therapy ?As needed Lasix ?Complete quarantine on 04/03/2021 ?Vaccinated with Ervin [employer] Ervin ?We will plan for an ambulatory pulse ox today 2. HTN/CAD status post CABG/HLD ?Continue with her home blood pressure medications, blood pressure stable ?Continue with Lipitor ?Continue with aspirin DVT: Lovenox Charges/Coding Visit Charges Inpatient E&M: 21771 Subs Hosp L2
[2021-03-31] MEDS: Furosemide 40 MG Tablet PO (14:35)
[2021-03-31 14:39] VITALS: BP 113/54; PULSE 81; RESP 18; TEMP 35.5; O2SAT 93
[2021-03-31] MEDS: Temazepam 15 MG Capsule PO (23:17)
[2021-03-31] MEDS: Atorvastatin Calcium 40 MG Tablet PO (23:17)
[2021-03-31 23:30] VITALS: BP 114/63; PULSE 94; RESP 22; TEMP 35.2; O2SAT 90
[2021-04-01] VITALS (10 sets, daily range): BP systolic 91–115; BP diastolic 56–67; PULSE 86–96; RESP 16–20; TEMP 35.6–36.6; O2SAT 78–99
[2021-04-01] MEDS: Acetaminophen 325 MG Tablet 650 MG PO ×2 (00:55→16:21)
[2021-04-01] MEDS: traMADol 50 MG Tablet 100 MG PO ×3 (03:07→20:36)
[2021-04-01 08:05] LABS: Anion Gap 9 (5-15); BUN 58 mg/dL (7-18); BUN/Creat Ratio 65.7 RATIO (10-20); Calcium,Total 8.4 mg/dL (8.5-10.1); Chloride 92 mmol/L (98-107); Creatinine, Serum 0.88 mg/dL (0.55-1.02); EST Glomerular Filtration Rate 67 mL/min (>60); Est Glom Filt Rate - Afr Amer 81 mL/min (>60); Estimated Creatinine Clearance 41.51 ml/min; Glucose 410 mg/dL (74-106); Potassium 4.5 mmol/L (3.5-5.1); Sodium Level 127 mmol/L (136-145)
--- NOTE | 2021-04-01 09:25 | NURSING ---
Pt states I am so weak. This nurse encouraged pt to lay prone, pt refused. This nurse educated again and still, pt refused. pt laying on side. When pt got up to void, pt spo2 in the room showed it was 78%. Stayed 78% while up to bsc. This nurse turned o2 up to 15L while on BSc and got spo2 up to 95%. Assisted back to bed and on rt side and o2 down to 10L NC high flow at this time and spo2 92-93%. When pt was up to bsc, had a small bm but it was black with drk red blood in it. This nurse will wait to give lovenox until hospitalist aware.
[2021-04-01] MEDS: Losartan Potassium 100 MG Tablet PO (09:30)
[2021-04-01] MEDS: guaiFENesin 1,200 MG Tablet 1200 MG PO ×2 (09:30→20:37)
[2021-04-01] MEDS: Labetalol 200 MG Tablet PO ×2 (09:30→20:37)
[2021-04-01] MEDS: Ferrous Sulfate 325 MG Tablet PO ×2 (09:30→16:22)
[2021-04-01 10:48] LABS: Absolute Neutrophil Count 14.3 X10^3/uL (2.0-7.7); Basophil# 0.04 X10^3/uL; Basophil% 0.2 % (0-1); Eosinophil# 0.01 X10^3/uL; Eosinophils% 0.1 % (0-5); Hematocrit 28.1 % (37-47); Hemoglobin 9.5 g/dL (12.0-15.0); Mean Corp Hgb Conc 33.8 g/dL (32-36); Mean Corpuscular Hgb 28.4 pg (27.0-32.0); Mean Corpuscular Volume 84.1 fL (81-99); Monocyte# 1.03 X10^3/uL; Monocyte% 5.7 % (0-10); NRBC Flagged by Analyzer 0 % (0-5); Neutrophil # 14.31 X10^3/uL (2.7-7.7); Neutrophil % 78.4 % (47-70); POSITIVE MORPHOLOGY YES; Platelet Count 364 K/mm3 (150-450); RBC Distribution Width SD 62.3 fl (35.1-43.9); Red Blood Count 3.34 M/mm3 (4.2-5.4); White Blood Count 18.2 K/mm3 (4.4-11.0)
[2021-04-01 10:49] LABS: Differential Indicated SCAN CRITERIA MET
[2021-04-01 11:09] LABS: Anisocytosis 1+
[2021-04-01] MEDS: Lidocaine 5% Patch 2 PATCH TOPICAL (13:21)
--- NOTE | 2021-04-01 14:10 | PCM.PN.HOSP ---
Subjective Subjective Feels unwell today, her sodium is 127 and her white count is elevated to 18. Nursing states that they had seen some blood clots in her stool and her hemoglobin is down to 9.5 will recheck later this afternoon. Objective Data Objective Data Vital Signs: Vital Signs Temp Pulse Resp BP Pulse Ox 96.3 F L 86 18 95/61 92 04/01/21 13:24 04/01/21 13:24 04/01/21 13:24 04/01/21 13:24 04/01/21 13:26 Oxygen Flow Rate (L/min) [ 6 AMBULATING with Oxygen #3] Oxygen Flow Rate (L/min) [ 5 AMBULATING with Oxygen #2] Oxygen Flow Rate (L/min) [ 5 AMBULATING with Oxygen #1] Oxygen Flow Rate (L/min) [At 3 REST with Oxygen] Oxygen Flow Rate (L/min) 5 Oxygen Delivery Method Nasal Cannula Weight: 134 lb 14.766 oz Body Mass Index (BMI) 26.4 Intake & Output: Intake and Output for Last 24 Hours 03/31/21 04/01/21 04/02/21 03:59 03:59 03:59 Intake Total 1500 / 1500 1250 / 1250 Balance 1500 / 1500 1250 / 1250 Lab / Micro Data Result Diagrams: 04/01/21 06:57 04/01/21 06:57 Labs: Laboratory Results - last 24 hr 04/01/21 06:57: Sodium 127 L, Potassium 4.5, Chloride 92 L, Carbon Dioxide 26.0, Anion Gap 9, BUN 58 H, Creatinine 0.88, Estim Creat Clear Calc 41.51, Est GFR (MDRD) Af Amer 81, Est GFR (MDRD) Non-Af 67, BUN/Creatinine Ratio 65.7 H, Glucose 410 H, Calcium 8.4 L 04/01/21 06:57: WBC 18.2 H, RBC 3.34 L, Hgb 9.5 L, Hct 28.1 L, MCV 84.1, MCH 28.4, MCHC 33.8, RDW Std Deviation 62.3 H, RDW Coeff of [place] 21.0 H, Plt Count 364, MPV 13.0 H, Immature Gran % (Auto) 4.600 H, Neut % (Auto) 78.4 H, Lymph % (Auto) 11.0 L, [place] % (Auto) 5.7, Eos % (Auto) 0.1, Baso % (Auto) 0.2, Absolute Neuts (auto) 14.3 H, Absolute Lymphs (auto) 2.00, Nucleated RBC % 0, Anisocytosis 1+ Micro: Microbiology 03/24/21 08:30 Blood Culture (Wb) - Anticubital Left Blood Culture - Final No growth in 5 days. 03/24/21 08:30 Blood Culture (Wb) - Left Hand Blood Culture - Final No growth in 5 days. 03/25/21 Unknown Mucosa - Nasopharyngeal Respiratory Panel (PCR) - Final Physical Exam Const alert, oriented x3 and no apparent distress General Appearance: cooperative HEENT normocephalic and moist oral mucous membranes Eyes PERRL, EOMs intact bilaterally and conjunctivae normal Neck no lymphadenopathy, supple and no JVD Resp normal respiratory effort, no retractions and no use of accessory muscles Auscultation: crackles; Negative for rales, rhonchi or wheezes Cardio regular rate, regular rhythm, S1 normal heart sound, S2 normal heart sound and no murmurs GI soft to palpation, non-tender and non-distended; Negative for hepatosplenomegaly Extremity no clubbing, cyanosis or edema Skin no rashes or lesions noted Neuro no focal motor deficits and no sensory deficits noted Psych affect normal Appearance: appropriate Assessment & Plan Assessment/Plan (1) Acute respiratory failure with hypoxia: (2) COVID-19: PLAN: 1. Acute hypoxic respiratory failure secondary to COVID-19 pneumonia ?Based on outpatient data and the Decadron she received, she has completed her course of Decadron, she has completed remdesivir ?She is not requiring an increased amount of oxygen however she does feel worse therefore will obtain a sputum culture and start her on Rocephin and azithromycin ?Continue with incentive spirometry and Pep therapy ?As needed Lasix ?Complete quarantine on 04/03/2021 ?Vaccinated with [employer]vin [employer] Ervin 2. HTN/CAD status post CABG/HLD ?Continue with her home blood pressure medications, blood pressure stable ?Continue with Lipitor ?Continue with aspirin 3. Acute GI bleed ?Nursing is stating that they have noticed blood clots in her stool, will hold her Lovenox and her aspirin ?We will recheck hemoglobin this evening if it continues to drop we will need to transfuse and consult gastroenterology for intervention potentially DVT: Lovenox Charges/Coding Visit Charges Inpatient E&M: 41240 Subs Hosp L2
[2021-04-01 15:48] LABS: Hemoglobin 9.2 g/dL (12.0-15.0)
[2021-04-01] MEDS: Ceftriaxone 1 GM/50 ML BAG IV (16:06)
[2021-04-01] MEDS: Temazepam 15 MG Capsule PO (20:37)
[2021-04-01] MEDS: Atorvastatin Calcium 40 MG Tablet PO (20:37)
[2021-04-02] MEDS: Acetaminophen 325 MG Tablet 650 MG PO ×2 (00:45→13:45)
[2021-04-02 00:52] VITALS: BP 92/59; PULSE 86; RESP 18; TEMP 36.1; O2SAT 93
[2021-04-02] MEDS: traMADol 50 MG Tablet 100 MG PO ×3 (04:35→21:00)
[2021-04-02 04:37] VITALS: BP 105/61; PULSE 89; RESP 18; TEMP 36.1; O2SAT 93
[2021-04-02 07:21] LABS: Absolute Lymphocyte Count 1.66 X10^3/uL (0.83-4.51); Absolute Neutrophil Count 14.3 X10^3/uL (2.0-7.7); Basophil# 0.05 X10^3/uL; Basophil% 0.3 % (0-1); Eosinophil# 0.22 X10^3/uL; Eosinophils% 1.2 % (0-5); Hematocrit 26.5 % (37-47); Lymphocyte # 1.66 X10^3/ul (0.83-4.51); Lymphocyte % 9.4 % (19-41); Mean Corpuscular Hgb 28.7 pg (27.0-32.0); Mean Corpuscular Volume 84.4 fL (81-99); Mean Platelet Vol. 12.1 fl (6.2-12.0); Monocyte# 0.93 X10^3/uL; Monocyte% 5.3 % (0-10); NRBC Flagged by Analyzer 0 % (0-5); Neutrophil # 14.28 X10^3/uL (2.7-7.7); POSITIVE MORPHOLOGY YES; Platelet Count 347 K/mm3 (150-450); RBC Distribution Width CV 21.8 % (11.6-14.6); Red Blood Count 3.14 M/mm3 (4.2-5.4); White Blood Count 17.6 K/mm3 (4.4-11.0)
[2021-04-02 07:35] LABS: Differential Indicated SCAN CRITERIA MET
[2021-04-02 07:49] LABS: Anion Gap 9 (5-15); BUN 50 mg/dL (7-18); BUN/Creat Ratio 52.6 RATIO (10-20); Calcium,Total 8.4 mg/dL (8.5-10.1); Chloride 93 mmol/L (98-107); Creatinine, Serum 0.95 mg/dL (0.55-1.02); EST Glomerular Filtration Rate 61 mL/min (>60); Est Glom Filt Rate - Afr Amer 74 mL/min (>60); Estimated Creatinine Clearance 38.45 ml/min; Glucose 216 mg/dL (74-106); Potassium 4.3 mmol/L (3.5-5.1); Sodium Level 129 mmol/L (136-145)
[2021-04-02 07:57] LABS: Anisocytosis 2+; Differential Comment SCANNED
[2021-04-02 08:03] VITALS: O2SAT 95
[2021-04-02] MEDS: Ceftriaxone 1 GM/50 ML BAG IV (09:23)
[2021-04-02] MEDS: Lidocaine 5% Patch 2 PATCH TOPICAL (09:27)
[2021-04-02] MEDS: Ferrous Sulfate 325 MG Tablet PO ×2 (09:30→18:04)
[2021-04-02] MEDS: 0.9% Saline Lock 10 ML Syringe IV (09:30)
[2021-04-02] MEDS: Losartan Potassium 100 MG Tablet PO (09:30)
[2021-04-02] MEDS: Labetalol 200 MG Tablet PO ×2 (09:30→21:00)
[2021-04-02] MEDS: guaiFENesin 1,200 MG Tablet 1200 MG PO ×2 (09:30→21:00)
[2021-04-02 09:43] VITALS: BP 105/67; PULSE 90; RESP 18; TEMP 37.2; O2SAT 95
--- NOTE | 2021-04-02 10:40 | HP.PCM.HOS_ITS ---
[facility] - General General Date of Admission: 03/24/21 Chief Complaint: shortness of breath. HPI Narrative NEHEMIAS VARELA, is a 70 F who presents [facility] Medical History Anemia Chronic pain Essential hypertension Facial droop GERD (gastroesophageal reflux disease) History of back pain HLD (hyperlipidemia) Pinched vertebral nerve Postoperative atrial fibrillation (11/10/20) Scoliosis Home Medications tramadol 100 mg PO TID PRN 11/02/20 [History Last Taken 12/15/20] aspirin 81 mg PO DAILY@0800 #1 tab 11/03/20 [Rx Last Taken 12/15/20] rosuvastatin 20 mg PO QHS 12/15/20 [History Last Taken 12/14/20] valsartan 320 mg PO DAILY 12/15/20 [History Last Taken 12/15/20] labetalol 200 mg tablet 200 mg PO BID tab 02/02/21 [History Last Taken Unknown] ferrous sulfate 325 mg PO BID 02/22/21 [History Last Taken Unknown] dexamethasone [Decadron] 6 mg PO DAILY 10 Days #10 tab 03/17/21 [Rx Last Taken Unknown] Allergy/AdvReac Type Severity Reaction Status Date / Time levofloxacin Allergy Severe leg pain Verified 03/24/21 08:13 amiodarone Allergy mental Verified 03/24/21 08:13 confusion Penicillins Allergy Unknown Verified 03/24/21 08:13 Sulfa (Sulfonamide Allergy Rash Verified 03/24/21 08:13 Antibiotics) lorazepam [From Ativan] AdvReac I went Verified 03/24/21 08:13 marlen Family History Mother Alcoholism Father Hypertension Brother Diabetes Sister Diabetes Hypertension Sister No problems noted. Son Hypertension Other Kidney disease Surgical History H/O coronary artery bypass surgery (03/17/21) History of appendectomy History of cholecystectomy History of left heart catheterization (11/03/20) Social History household members: spouse Smoking Status: Never smoker alcohol intake: never substance use type: does not use Vital Signs Vital Signs Vital Signs: 04/01/21 13:24 04/01/21 13:26 04/01/21 16:11 Temperature 96.3 F L 96.1 F L Temperature Source Temporal Temporal Pulse Rate 86 87 Respiratory Rate 18 16 Respiratory Effort Respiratory Depth Respiratory Pattern Blood Pressure 95/61 91/56 L Blood Pressure Mean 72 67 Blood Pressure Source Monitor Monitor Blood Pressure Position Semi-Fowlers Semi-Fowlers Blood Pressure Location Left Arm Left Arm Pulse Ox 99 92 97 Oxygen Delivery Method Nasal Cannula Nasal Cannula Nasal Cannula Oxygen Flow Rate (L/min) 10 5 5 04/01/21 16:33 04/01/21 19:44 04/01/21 20:39 Temperature 96.7 F L 97.8 F Temperature Source Temporal Temporal Pulse Rate 93 95 Respiratory Rate 18 18 Respiratory Effort Normal Normal Non-Labored Respiratory Depth Normal Normal Respiratory Pattern Normal Normal Blood Pressure 102/61 96/56 L Blood Pressure Mean 74 69 Blood Pressure Source Monitor Monitor Blood Pressure Position Semi-Fowlers Semi-Fowlers Blood Pressure Location Right Arm Right Arm Pulse Ox 96 94 96 Oxygen Delivery Method Nasal Cannula Nasal Cannula Nasal Cannula Oxygen Flow Rate (L/min) 3.5 3.5 3.5 04/02/21 00:50 04/02/21 00:52 04/02/21 04:37 Temperature 96.9 F L 96.9 F L Temperature Source Temporal Temporal Pulse Rate 86 89 Respiratory Rate 18 18 Respiratory Effort Normal Non-Labored Respiratory Depth Normal Respiratory Pattern Normal Blood Pressure 92/59 L 105/61 Blood Pressure Mean 70 75 Blood Pressure Source Monitor Monitor Blood Pressure Position Semi-Fowlers Semi-Fowlers Blood Pressure Location Right Arm Right Arm Pulse Ox 93 93 Oxygen Delivery Method Nasal Cannula Nasal Cannula Nasal Cannula Oxygen Flow Rate (L/min) 6 5 6 04/02/21 08:03 04/02/21 09:43 Temperature 98.9 F Temperature Source Temporal Pulse Rate 90 Respiratory Rate 18 Respiratory Effort Respiratory Depth Respiratory Pattern Blood Pressure 105/67 Blood Pressure Mean 79 Blood Pressure Source Monitor Blood Pressure Position Semi-Fowlers Blood Pressure Location Right Arm Pulse Ox 95 95 Oxygen Delivery Method Nasal Cannula Nasal Cannula Oxygen Flow Rate (L/min) 3.5 4 Weight Weight: 61.2 kg Body Mass Index (BMI) 26.4 Results Lab / Micro Data Result Diagrams: 04/02/21 06:14 04/02/21 06:14 Labs: Laboratory Results - last 24 hr 04/01/21 06:57: WBC 18.2 H, RBC 3.34 L, Hgb 9.5 L, Hct 28.1 L, MCV 84.1, MCH 28.4, MCHC 33.8, RDW Std Deviation 62.3 H, RDW Coeff of Douglas 21.0 H, Plt Count 364, MPV 13.0 H, Immature Gran % (Auto) 4.600 H, Neut % (Auto) 78.4 H, Lymph % (Auto) 11.0 L, [place] % (Auto) 5.7, Eos % (Auto) 0.1, Baso % (Auto) 0.2, Absolute Neuts (auto) 14.3 H, Absolute Lymphs (auto) 2.00, Nucleated RBC % 0, Anisocytosis 1+ 04/01/21 15:38: Hgb 9.2 L, Hct 27.0 L 04/02/21 06:14: WBC 17.6 H, RBC 3.14 L, Hgb 9.0 L, Hct 26.5 L, MCV 84.4, MCH 28.7, MCHC 34.0, RDW Std Deviation 65.0 H, RDW Coeff of [place] 21.8 H, Plt Count 347, MPV 12.1 H, Immature Gran % (Auto) 2.800 H, Neut % (Auto) 81.0 H, Lymph % (Auto) 9.4 L, [place] % (Auto) 5.3, Eos % (Auto) 1.2, Baso % (Auto) 0.3, Absolute Neuts (auto) 14.3 H, Absolute Lymphs (auto) 1.66, Nucleated RBC % 0, Differential Comment SCANNED, Anisocytosis 2+ 04/02/21 06:14: Sodium 129 L, Potassium 4.3, Chloride 93 L, Carbon Dioxide 27.0, Anion Gap 9, BUN 50 H, Creatinine 0.95, Estim Creat Clear Calc 38.45, Est GFR (MDRD) Af Amer 74, Est GFR (MDRD) Non-Af 61, BUN/Creatinine Ratio 52.6 H, Glucose 216 H, Calcium 8.4 L Assessment & Plan Assessment/Plan (1) Acute respiratory failure with hypoxia: (2) COVID-19: PLAN: 1. Acute hypoxic respiratory failure secondary to COVID-19 pneumonia ?Based on outpatient data and the Decadron she received, she has completed her course of Decadron, she has completed remdesivir ?She is not requiring an increased amount of oxygen however she does feel worse therefore will obtain a sputum culture and start her on Rocephin and azithromycin ?Continue with incentive spirometry and Pep therapy ?As needed Lasix ?Complete quarantine on 04/03/2021 ?Vaccinated with [employer] 2. HTN/CAD status post CABG/HLD ?Continue with her home blood pressure medications, blood pressure stable ?Continue with Lipitor ?Continue with aspirin 3. Acute GI bleed ?Nursing is stating that they have noticed blood clots in her stool, will hold her Lovenox and her aspirin ?We will recheck hemoglobin this evening if it continues to drop we will need to transfuse and consult gastroenterology for intervention potentially DVT: Lovenox
--- NOTE | 2021-04-02 10:49 | PN.HOSP_ITS ---
Subjective Subjective Patient is a 70-year-old lady with past medical history is not for hypertension coronary artery disease status post CABG vaccinated with Ervin & Ervin who presented with progressive shortness of breath. Diagnosed with acute hypoxic respiratory failure secondary to COVID-19 pneumonia Objective Data Objective Data Vital Signs: Vital Signs Temp Pulse Resp BP Pulse Ox 98.9 F 90 18 105/67 95 04/02/21 09:43 04/02/21 09:43 04/02/21 09:43 04/02/21 09:43 04/02/21 09:43 Oxygen Flow Rate (L/min) [ 6 AMBULATING with Oxygen #3] Oxygen Flow Rate (L/min) [ 5 AMBULATING with Oxygen #2] Oxygen Flow Rate (L/min) [ 5 AMBULATING with Oxygen #1] Oxygen Flow Rate (L/min) [At 3 REST with Oxygen] Oxygen Flow Rate (L/min) 4 Oxygen Delivery Method Nasal Cannula Weight: 61.2 kg Body Mass Index (BMI) 26.4 Intake & Output: Intake and Output for Last 24 Hours 03/31/21 04/01/21 04/02/21 23:59 23:59 23:59 Intake Total 750 / 750 1045 / 1045 360 / 360 Output Total 400 / 400 Balance 750 / 750 645 / 645 360 / 360 Lab / Micro Data Result Diagrams: 04/02/21 06:14 04/02/21 06:14 Labs: Laboratory Results - last 24 hr 04/01/21 06:57: WBC 18.2 H, RBC 3.34 L, Hgb 9.5 L, Hct 28.1 L, MCV 84.1, MCH 28.4, MCHC 33.8, RDW Std Deviation 62.3 H, RDW Coeff of [place] 21.0 H, Plt Count 364, MPV 13.0 H, Immature Gran % (Auto) 4.600 H, Neut % (Auto) 78.4 H, Lymph % (Auto) 11.0 L, [place] % (Auto) 5.7, Eos % (Auto) 0.1, Baso % (Auto) 0.2, Absolute Neuts (auto) 14.3 H, Absolute Lymphs (auto) 2.00, Nucleated RBC % 0, Anisocytosis 1+ 04/01/21 15:38: Hgb 9.2 L, Hct 27.0 L 04/02/21 06:14: WBC 17.6 H, RBC 3.14 L, Hgb 9.0 L, Hct 26.5 L, MCV 84.4, MCH 28.7, MCHC 34.0, RDW Std Deviation 65.0 H, RDW Coeff of [place] 21.8 H, Plt Count 347, MPV 12.1 H, Immature Gran % (Auto) 2.800 H, Neut % (Auto) 81.0 H, Lymph % (Auto) 9.4 L, [place] % (Auto) 5.3, Eos % (Auto) 1.2, Baso % (Auto) 0.3, Absolute Neuts (auto) 14.3 H, Absolute Lymphs (auto) 1.66, Nucleated RBC % 0, Differential Comment SCANNED, Anisocytosis 2+ 04/02/21 06:14: Sodium 129 L, Potassium 4.3, Chloride 93 L, Carbon Dioxide 27.0, Anion Gap 9, BUN 50 H, Creatinine 0.95, Estim Creat Clear Calc 38.45, Est GFR (MDRD) Af Amer 74, Est GFR (MDRD) Non-Af 61, BUN/Creatinine Ratio 52.6 H, Glucose 216 H, Calcium 8.4 L Micro: Microbiology 03/24/21 08:30 Blood Culture (Wb) - Anticubital Left Blood Culture - Final No growth in 5 days. 03/24/21 08:30 Blood Culture (Wb) - Left Hand Blood Culture - Final No growth in 5 days. 03/25/21 Unknown Mucosa - Nasopharyngeal Respiratory Panel (PCR) - Final Physical Exam Narrative GENERAL: Frail looking dyspneic at rest HEENT: Atraumatic; EYES; Anicteric, Normal Conjunctiva NECK; supple, normal thyroid, RESPIRATORY: Diminished to auscultation CARDIOVASCULAR: Regular S1 S2, GI: soft, normoactive bowel sounds, : No Renal angle tenderness; EXTREMITIES: No edema, no clubbing, MUSCULOSKELETAL: no muscle waisting NEURO: Awake; no lateralizing signs. SKIN: No Rash PSYCH; Flat affect Assessment & Plan Assessment/Plan (1) Acute respiratory failure with hypoxia: (2) COVID-19: PLAN: Patient is a 70-year-old lady with past medical history is not for hypertension coronary artery disease status post CABG vaccinated with Ervin Urtak who presented with progressive shortness of breath. Diagnosed with acute hypoxic respiratory failure secondary to COVID-19 pneumonia 1. Acute hypoxic respiratory failure ?Patient completed a course of remdesivir and Decadron. Has been placed on supplemental oxygen which is being titrated to keep saturation greater than 90 2. Superimposed suspected bacterial pneumonia ?Patient managed with Rocephin and azithromycin 3. Acute GI bleed ?Patient was reported to have experienced bleeding per rectum with clots. Was on aspirin and Lovenox subsequently held. Plan is for patient to undergo GI ev aluation once she is out of quarantine 4. Hypertension - Blood pressure controlled, home medications continued with dose adjustment as needed 5. Dyslipidemia -Patient is on statin therapy, continued at home dose 6. Coronary artery disease ?Status post CABG 7. Chronic hypoxic respiratory failure ?Patient is on baseline home oxygen 8. DVT prophylaxis ?Patient was on Lovenox which was held in view of patient having experienced GI bleed Charges/Coding Visit Charges Inpatient E&M: 52029 Subs Hosp L2
[2021-04-02 15:54] VITALS: BP 110/84; PULSE 72; RESP 18; TEMP 37; O2SAT 97
[2021-04-02] MEDS: Temazepam 15 MG Capsule PO (20:59)
[2021-04-02] MEDS: Atorvastatin Calcium 40 MG Tablet PO (21:00)
[2021-04-02 21:04] VITALS: BP 117/63; PULSE 86; RESP 18; TEMP 36.1; O2SAT 93
[2021-04-03] VITALS (8 sets, daily range): BP systolic 80–118; BP diastolic 45–66; PULSE 74–94; RESP 16–18; TEMP 36–37; O2SAT 80–98
[2021-04-03] MEDS: Acetaminophen 325 MG Tablet 650 MG PO ×2 (02:19→09:56)
[2021-04-03] MEDS: traMADol 50 MG Tablet 100 MG PO ×3 (05:22→20:43)
--- NOTE | 2021-04-03 07:33 | PCM.PN.HOSP ---
Subjective Subjective Improving clinically, requesting to be discharged Objective Data Objective Data Vital Signs: Vital Signs Temp Pulse Resp BP Pulse Ox 97.8 F 77 18 110/55 L 95 04/03/21 02:20 04/03/21 02:20 04/03/21 02:20 04/03/21 02:20 04/03/21 02:20 Oxygen Flow Rate (L/min) [ 6 AMBULATING with Oxygen #3] Oxygen Flow Rate (L/min) [ 5 AMBULATING with Oxygen #2] Oxygen Flow Rate (L/min) [ 5 AMBULATING with Oxygen #1] Oxygen Flow Rate (L/min) [At 3 REST with Oxygen] Oxygen Flow Rate (L/min) 5 Oxygen Delivery Method Nasal Cannula Weight: 61.2 kg Body Mass Index (BMI) 26.4 Intake & Output: Intake and Output for Last 24 Hours 04/01/21 04/02/21 04/03/21 23:59 23:59 23:59 Intake Total 1045 / 1045 1350 / 1350 600 / 600 Output Total 400 / 400 Balance 645 / 645 1350 / 1350 600 / 600 Lab / Micro Data Result Diagrams: 04/03/21 07:35 04/03/21 07:35 Labs: Laboratory Results - last 24 hr 04/02/21 06:14: WBC 17.6 H, RBC 3.14 L, Hgb 9.0 L, Hct 26.5 L, MCV 84.4, MCH 28.7, MCHC 34.0, RDW Std Deviation 65.0 H, RDW Coeff of [place] 21.8 H, Plt Count 347, MPV 12.1 H, Immature Gran % (Auto) 2.800 H, Neut % (Auto) 81.0 H, Lymph % (Auto) 9.4 L, [place] % (Auto) 5.3, Eos % (Auto) 1.2, Baso % (Auto) 0.3, Absolute Neuts (auto) 14.3 H, Absolute Lymphs (auto) 1.66, Nucleated RBC % 0, Differential Comment SCANNED, Anisocytosis 2+ 04/02/21 06:14: Sodium 129 L, Potassium 4.3, Chloride 93 L, Carbon Dioxide 27.0, Anion Gap 9, BUN 50 H, Creatinine 0.95, Estim Creat Clear Calc 38.45, Est GFR (MDRD) Af Amer 74, Est GFR (MDRD) Non-Af 61, BUN/Creatinine Ratio 52.6 H, Glucose 216 H, Calcium 8.4 L Micro: Microbiology 04/02/21 00:10 Sputum, Expectorated/Coughed Gram Stain - Final 03/24/21 08:30 Blood Culture (Wb) - Anticubital Left Blood Culture - Final No growth in 5 days. 03/24/21 08:30 Blood Culture (Wb) - Left Hand Blood Culture - Final No growth in 5 days. 03/25/21 Unknown Mucosa - Nasopharyngeal Respiratory Panel (PCR) - Final Physical Exam Narrative GENERAL: Frail looking dyspneic at rest HEENT: Atraumatic; EYES; Anicteric, Normal Conjunctiva NECK; supple, normal thyroid, RESPIRATORY: Diminished to auscultation CARDIOVASCULAR: Regular S1 S2, GI: soft, normoactive bowel sounds, : No Renal angle tenderness; EXTREMITIES: No edema, no clubbing, MUSCULOSKELETAL: no muscle waisting NEURO: Awake; no lateralizing signs. SKIN: No Rash PSYCH; Flat affect Assessment & Plan Assessment/Plan (1) Acute respiratory failure with hypoxia: (2) COVID-19: PLAN: Patient is a 70-year-old lady with past medical history is not for hypertension coronary artery disease status post CABG vaccinated with Ervin & Ervin who presented with progressive shortness of breath. Diagnosed with acute hypoxic respiratory failure secondary to COVID-19 pneumonia 1. Acute hypoxic respiratory failure ?Patient completed a course of remdesivir and Decadron. Has been placed on supplemental oxygen which is being titrated to keep saturation greater than 90 -04/03/2021; Improving clinically, requesting to be discharged 2. Superimposed suspected bacterial pneumonia ?Patient managed with Rocephin and azithromycin 3. Acute GI bleed ?Patient was reported to have experienced bleeding per rectum with clots. Was on aspirin and Lovenox subsequently held. Plan is for patient to undergo GI evaluation once she is out of quarantine 4. Hypertension - Blood pressure controlled, home medications continued with dose adjustment as needed 5. Dyslipidemia -Patient is on statin therapy, continued at home dose 6. Coronary artery disease ?Status post CABG 7. Chronic hypoxic respiratory failure ?Patient is on baseline home oxygen 8. DVT prophylaxis ?Patient was on Lovenox which was held in view of patient having experienced GI bleed Charges/Coding Visit Charges Inpatient E&M: 67816 Subs Hosp L2
[2021-04-03 08:19] LABS: Absolute Lymphocyte Count 1.19 X10^3/uL (0.83-4.51); Absolute Neutrophil Count 9.1 X10^3/uL (2.0-7.7); Basophil# 0.04 X10^3/uL; Basophil% 0.3 % (0-1); Eosinophil# 0.26 X10^3/uL; Eosinophils% 2.2 % (0-5); Hematocrit 23.1 % (37-47); Hemoglobin 7.6 g/dL (12.0-15.0); Lymphocyte # 1.19 X10^3/ul (0.83-4.51); Lymphocyte % 10.2 % (19-41); Mean Corp Hgb Conc 32.9 g/dL (32-36); Mean Corpuscular Hgb 28.4 pg (27.0-32.0); Mean Corpuscular Volume 86.2 fL (81-99); Mean Platelet Vol. 11.8 fl (6.2-12.0); Monocyte# 0.65 X10^3/uL; Monocyte% 5.5 % (0-10); NRBC Flagged by Analyzer 0.2 % (0-5); Neutrophil # 9.13 X10^3/uL (2.7-7.7); POSITIVE MORPHOLOGY YES; Platelet Count 280 K/mm3 (150-450); RBC Distribution Width CV 20.7 % (11.6-14.6); RBC Distribution Width SD 64.4 fl (35.1-43.9); Red Blood Count 2.68 M/mm3 (4.2-5.4); White Blood Count 11.7 K/mm3 (4.4-11.0)
[2021-04-03 08:22] LABS: Differential Indicated SCAN CRITERIA MET
[2021-04-03 08:55] LABS: Anion Gap 8 (5-15); Anisocytosis 1+; BUN 32 mg/dL (7-18); BUN/Creat Ratio 44.7 RATIO (10-20); Calcium,Total 8.3 mg/dL (8.5-10.1); Chloride 94 mmol/L (98-107); Creatinine, Serum 0.72 mg/dL (0.55-1.02); EST Glomerular Filtration Rate 85 mL/min (>60); Est Glom Filt Rate - Afr Amer 103 mL/min (>60); Estimated Creatinine Clearance 36.53 ml/min; Glucose 172 mg/dL (74-106); Magnesium 2.3 mg/dL (1.6-2.6); Sodium Level 130 mmol/L (136-145)
--- NOTE | 2021-04-03 09:23 | PCM.DC.SUM ---
Providers Date of Admission: 03/24/21 Primary Care Physician: Dr. Elroy Wellington MD Reason For Visit: COVID-19 Diagnosis Discharge Diagnosis (1) Acute respiratory failure with hypoxia: Status: Acute Code(s): J96.01 - Acute respiratory failure with hypoxia (2) COVID-19: Status: Acute Code(s): U07.1 - COVID-19 Medications at Discharge Home Medications tramadol 100 mg PO TID PRN 11/02/20 aspirin 81 mg PO DAILY@0800 #1 tab 11/03/20 rosuvastatin 20 mg PO QHS 12/15/20 valsartan 320 mg PO DAILY 12/15/20 labetalol 200 mg tablet 200 mg PO BID tab 02/02/21 ferrous sulfate 325 mg PO BID 02/22/21 Hospital Course Summary of Care Provided Minutes Spent on Discharge: 45 Hospital Course: Patient is a 70-year-old lady with past medical history is not for hypertension coronary artery disease status post CABG vaccinated with Ervin & Ervin who presented with progressive shortness of breath. Diagnosed with acute hypoxic respiratory failure secondary to COVID-19 pneumonia 1. Acute hypoxic respiratory failure ?Patient completed a course of remdesivir and Decadron. Has been placed on supplemental oxygen which is being titrated to keep saturation greater than 90 -04/03/2021; Improving clinically, requesting to be discharged 2. Superimposed suspected bacterial pneumonia ?Patient managed with Rocephin and azithromycin 3. Acute GI bleed ?Patient was reported to have experienced bleeding per rectum with clots. Was on aspirin and Lovenox subsequently held. Plan is for patient to undergo GI evaluation once she is out of quarantine 4. Hypertension - Blood pressure controlled, home medications continued with dose adjustment as needed 5. Dyslipidemia -Patient is on statin therapy, continued at home dose 6. Coronary artery disease ?Status post CABG 7. Chronic hypoxic respiratory failure ?Patient is on baseline home oxygen 8. DVT prophylaxis ?Patient was on Lovenox which was held in view of patient having experienced GI bleed Physical Exam Narrative GENERAL: Frail looking HEENT: Atraumatic; EYES; Anicteric, Normal Conjunctiva NECK; supple, normal thyroid, RESPIRATORY: Diminished to auscultation CARDIOVASCULAR: Regular S1 S2, GI: soft, normoactive bowel sounds, : No Renal angle tenderness; EXTREMITIES: No edema, no clubbing, MUSCULOSKELETAL: no muscle waisting NEURO: Awake; no lateralizing signs. SKIN: No Rash PSYCH; Flat affect Weight / BMI Weight Weight: 61.2 kg Body Mass Index (BMI) 26.4 ABG / Lab / Microbiology Data Result Diagrams: 04/03/21 07:35 04/03/21 07:35 Laboratory: Laboratory Results - last 24 hr 04/03/21 07:35: WBC 11.7 H, RBC 2.68 L, Hgb 7.6 L, Hct 23.1 L, MCV 86.2, MCH 28.4, MCHC 32.9, RDW Std Deviation 64.4 H, RDW Coeff of [place] 20.7 H, Plt Count 280, MPV 11.8, Immature Gran % (Auto) 3.800 H, Neut % (Auto) 78.0 H, Lymph % (Auto) 10.2 L, [place] % (Auto) 5.5, Eos % (Auto) 2.2, Baso % (Auto) 0.3, Absolute Neuts (auto) 9.1 H, Absolute Lymphs (auto) 1.19, Nucleated RBC % 0.2, Anisocytosis 1+ 04/03/21 07:35: Sodium 130 L, Potassium 4.0, Chloride 94 L, Carbon Dioxide 28.0, Anion Gap 8, BUN 32 H, Creatinine 0.72, Estim Creat Clear Calc 36.53, Est GFR (MDRD) Af Amer 103, Est GFR (MDRD) Non-Af 85, BUN/Creatinine Ratio 44.7 H, Glucose 172 H, Calcium 8.3 L, Magnesium 2.3 Microbiology: Microbiology 04/02/21 00:10 Sputum, Expectorated/Coughed Gram Stain - Final 03/24/21 08:30 Blood Culture (Wb) - Anticubital Left Blood Culture - Final No growth in 5 days. 03/24/21 08:30 Blood Culture (Wb) - Left Hand Blood Culture - Final No growth in 5 days. 03/25/21 Unknown Mucosa - Nasopharyngeal Respiratory Panel (PCR) - Final D/C Instructions Discharge Diet: No restrictions Discharge Activity: Return to Normal Activity Call your doctor if you observe: Fever of 101 or Higher, Shortness of breath, Fainting spells and Chest pain Meaningful Use Info Meaningful Use Diagnoses (Choose all that apply): None applicable Discharge Plan Admission Admit Date/Time: 11/20/21 11:47 Attending Provider: Cricket Loera Primary Care Provider: Elroy Wellington Discharge Orders/Prescriptions Prescriptions: Continued labetalol 200 mg tablet 200 mg PO BID RF: 0 tramadol 50 mg tablet 100 mg PO TID PRN (Reason: Pain) RF: 0 aspirin 81 mg Tablet,Delayed Release (Dr/Ec) 81 mg PO DAILY@0800 Qty: 1 RF: 0 valsartan 320 mg Tablet 320 mg PO DAILY RF: 0 rosuvastatin 20 mg Tablet 20 mg PO QHS RF: 0 ferrous sulfate 325 mg (65 mg iron) Tablet 325 mg PO BID RF: 0 Discontinued dexamethasone [Decadron] 6 mg tablet 6 mg PO DAILY 10 Days Qty: 10 RF: 0 Referrals / Follow Up: Elroy Wellington MD [Primary Care Provider] - Within 1 Week Disposition Disposition (needs filled in before D/C Order can be placed): Home, Self Care Charges/Coding Visit Charges Inpatient E&M: 68521 Disch Hosp
--- NOTE | 2021-04-03 09:41 | CASEMGMT ---
Addendum entered by Leah Augustine 04/03/21 10:39: Faxed [employer] script for updated O2 requirements. Original Note: Pt has portable O2 in room. Pt states her retired nurse friend and her will be assisting her at home. She denies need for any further services.
[2021-04-03] MEDS: Losartan Potassium 100 MG Tablet PO (09:55)
[2021-04-03] MEDS: Ferrous Sulfate 325 MG Tablet PO ×2 (09:55→17:42)
[2021-04-03] MEDS: guaiFENesin 1,200 MG Tablet 1200 MG PO ×2 (09:55→20:43)
[2021-04-03] MEDS: Labetalol 200 MG Tablet PO (09:55)
[2021-04-03] MEDS: Lidocaine 5% Patch 2 PATCH TOPICAL (09:57)
[2021-04-03] MEDS: Ceftriaxone 1 GM/50 ML BAG IV (10:01)
[2021-04-03] MEDS: 0.9% Saline Lock 10 ML Syringe IV (10:06)
--- NOTE | 2021-04-03 11:30 | PHA.DC.MR ---
Pharmacy Service has performed discharge medication reconciliation for this patient. The patient's discharge medication list was reviewed for discrepancies and discrepancies were resolved. Home Medications tramadol 100 mg PO TID PRN 11/02/20 aspirin 81 mg PO DAILY@0800 #1 tab 11/03/20 rosuvastatin 20 mg PO QHS 12/15/20 ferrous sulfate 325 mg PO BID 02/22/21
--- NOTE | 2021-04-03 12:40 | PCM.HOSP.N ---
Hospitalist Note Plans to discharge patient home was discontinued after patient was found to be hypotensive with systolic blood pressure in 70s to 80s. Patient was on losartan as well as labetalol both medications held. Also found to have a drop in her hemoglobin 7.6 of note patient had passed some clots per on 03/31/2021. Did request for repeat guaiac and also ordered iron studies and consultation placed to GI
[2021-04-03 13:05] LABS: Platelet Count 279 K/mm3 (150-450); RET-HE 39.4 pg (30-35); Reticulocyte Count 4.26 % (0.5-1.5)
[2021-04-03 13:19] LABS: Ferritin 139 ng/mL (8-252); Iron 85 ug/dL (50-170); Iron Binding Capacity,Total 341 ug/dL (250-450); PERCENT IRON SATURATION 24.9 % (15.0-55.0)
[2021-04-03 17:47] LABS: Vitamin B12 1122 pg/mL (211-911)
[2021-04-03] MEDS: Temazepam 15 MG Capsule PO (20:43)
[2021-04-03] MEDS: Atorvastatin Calcium 40 MG Tablet PO (20:43)
[2021-04-04] VITALS (7 sets, daily range): BP systolic 119–127; BP diastolic 57–73; PULSE 80–90; RESP 18; TEMP 36.7–37; O2SAT 84–96
[2021-04-04] MEDS: traMADol 50 MG Tablet 100 MG PO (06:36)
[2021-04-04] MEDS: guaiFENesin 1,200 MG Tablet 1200 MG PO (08:16)
[2021-04-04] MEDS: Ferrous Sulfate 325 MG Tablet PO (08:16)
[2021-04-04 08:59] LABS: Absolute Lymphocyte Count 1.15 X10^3/uL (0.83-4.51); Absolute Neutrophil Count 9.8 X10^3/uL (2.0-7.7); Basophil# 0.05 X10^3/uL; Basophil% 0.4 % (0-1); Eosinophil# 0.24 X10^3/uL; Hematocrit 23.8 % (37-47); Hemoglobin 7.5 g/dL (12.0-15.0); Lymphocyte # 1.15 X10^3/ul (0.83-4.51); Lymphocyte % 9.4 % (19-41); Mean Corp Hgb Conc 31.5 g/dL (32-36); Mean Corpuscular Hgb 27.9 pg (27.0-32.0); Mean Corpuscular Volume 88.5 fL (81-99); Monocyte# 0.71 X10^3/uL; Monocyte% 5.8 % (0-10); NRBC Flagged by Analyzer 0.2 % (0-5); Neutrophil # 9.75 X10^3/uL (2.7-7.7); Neutrophil % 79.7 % (47-70); POSITIVE MORPHOLOGY YES; Platelet Count 284 K/mm3 (150-450); RBC Distribution Width CV 21.1 % (11.6-14.6); RBC Distribution Width SD 66.6 fl (35.1-43.9); Red Blood Count 2.69 M/mm3 (4.2-5.4); White Blood Count 12.2 K/mm3 (4.4-11.0)
[2021-04-04 09:03] LABS: Differential Indicated SCAN CRITERIA MET
[2021-04-04 09:19] LABS: Anion Gap 11 (5-15); BUN 24 mg/dL (7-18); BUN/Creat Ratio 29.8 RATIO (10-20); Chloride 94 mmol/L (98-107); Creatinine, Serum 0.81 mg/dL (0.55-1.02); EST Glomerular Filtration Rate 74 mL/min (>60); Est Glom Filt Rate - Afr Amer 90 mL/min (>60); Estimated Creatinine Clearance 45.09 ml/min; Glucose 198 mg/dL (74-106); Potassium 4.1 mmol/L (3.5-5.1); Sodium Level 131 mmol/L (136-145)
[2021-04-04 09:28] LABS: Anisocytosis 1+; Differential Comment SCANNED; Polychromasia RARE
[2021-04-04] MEDS: Ceftriaxone 1 GM/50 ML BAG IV (10:11)
== END 2021-04-04 12:25 | disposition home or self-care (01) | DRG 177 ==
LOC: ED 10:56 → MS3 11:40
PROVIDERS: Family Medicine; Emergency Provider Emergency Medicine; PCP Family Medicine; Visit Provider Internal Medicine
DX: U07.1 COVID-19 (principal); J96.21 Acute and chronic respiratory failure with hypoxia; J15.9 Unspecified bacterial pneumonia; R71.0 Precipitous drop in hematocrit; K92.2 Gastrointestinal hemorrhage, unspecified; I95.9 Hypotension, unspecified; I10 Essential (primary) hypertension; E78.5 Hyperlipidemia, unspecified; I25.10 Atherosclerotic heart disease of native coronary artery without angina pectoris; Z79.02 Long term (current) use of antithrombotics/antiplatelets; Z99.81 Dependence on supplemental oxygen; Z79.899 Other long term (current) drug therapy; Z95.1 Presence of aortocoronary bypass graft
CPT/HCPCS: 36415; 71045; 71275; 80048; 80053; 82607; 82728; 83540; 83550; 83605; 83735; 83880; 84075; 84484; 85014; 85018; 85025; 85045; 85379; 87040; 87070; 87205; 87633; 87635; 93005; 94667; 94668; 99251; 99285; J7040; J7050; Q9967; U0005; A4216; G0463; J1940; J2405; U0003

== ENCOUNTER 2021-06-12 15:56 | Inpatient (IN) | payer MEDICARE, SELFPAY ==
[2021-06-12] VITALS (15 sets, daily range): BP systolic 169–216; BP diastolic 93–124; PULSE 96–116; RESP 16–30; TEMP 35.5–36.6; O2SAT 91–96; BMI 25.0; BMI 25.4
--- NOTE | 2021-06-12 16:24 | EKG12_ITS ---
Test Reason : Blood Pressure : / mmHG Vent. Rate : 105 BPM Atrial Rate : 105 BPM P-R Int : 168 ms QRS Dur : 096 ms QT Int : 310 ms P-R-T Axes : -03 017 195 degrees QTc Int : 409 ms Sinus tachycardia Anterior infarct , age undetermined ST & T wave abnormality, consider inferolateral ischemia Abnormal ECG Confirmed by ROSIE BROOKS, MAYRA ([id number]), associate entertainment editor XIAO HURT ([id number]) on 06/13/2021 9:45:05 AM Referred By: BB Confirmed By:MAYRA VELZE MD
--- NOTE | 2021-06-12 16:25 | ED.VIS.DYS ---
HPI History of Present Illness Chief Complaint: Shortness of Breath Informant: patient Onset/Context/Timing Onset: Weeks (1) Context: gradual Timing: Continuous Quality: Positive for Dyspnea on exertion and Orthopnea Current Severity: Moderate Maximum Severity: Severe Worsened by: Exertion, Lying flat and Coughing Relieved by: Rest Associated Symptoms cough and yellow sputum Chest Pain: Positive for None Narrative Narrative: Patient had been diagnosed with Covid about a month ago. She was admitted to the hospital for dyspnea, requiring oxygen. She was in the hospital for about a week, she was discharged to [facility] 2.5-3 weeks ago according to her. She has been coughing the whole time, malaise, she started coughing up more sputum than usual in the past several days and dyspnea for about a week. Now walking from one room to the neck she gets very dyspneic. She is currently dyspneic at rest mildly. She does not use oxygen at home. No history of COPD. History of bypass, no chest discomfort except for some mild rib soreness from coughing, similar soreness in upper abdomen. Denies any fevers or chills. No edema in her legs or pains there. No history of DVT or PE. Takes aspirin no anticoagulants. [facility] Medical History Anemia Chronic pain Essential hypertension Facial droop GERD (gastroesophageal reflux disease) History of back pain HLD (hyperlipidemia) Pinched vertebral nerve Postoperative atrial fibrillation (11/10/20) Scoliosis Home Medications tramadol 100 mg PO TID PRN 11/02/20 [History Last Taken 12/15/20] aspirin 81 mg PO DAILY@0800 #1 tab 11/03/20 [Rx Last Taken 12/15/20] rosuvastatin 20 mg PO QHS 12/15/20 [History Last Taken 12/14/20] ferrous sulfate 325 mg PO BID 02/22/21 [History Last Taken Unknown] ferrous sulfate [iron] 325 mg PO BID #60 tab 04/04/21 [Rx Last Taken Unknown] pantoprazole [Protonix] 40 mg PO DAILY #60 tab 04/04/21 [Rx Last Taken Unknown] Allergy/AdvReac Type Severity Reaction Status Date / Time levofloxacin Allergy Severe leg pain Verified 06/12/21 15:57 amiodarone Allergy mental Verified 06/12/21 15:57 confusion Penicillins Allergy Unknown Verified 06/12/21 15:57 Sulfa (Sulfonamide Allergy Rash Verified 06/12/21 15:57 Antibiotics) lorazepam [From Ativan] AdvReac I went Verified 06/12/21 15:57 crazy Family History Mother Alcoholism Father Hypertension Brother Diabetes Sister Diabetes Hypertension Sister No problems noted. Son Hypertension Other Kidney disease Surgical History H/O coronary artery bypass surgery (03/17/21) History of appendectomy History of cholecystectomy History of left heart catheterization (11/03/20) Social History household members: spouse Smoking Status: Never smoker alcohol intake: never substance use type: does not use ROS ROS ED Constitutional Constitutional ED: Reports fatigue; Denies chills or fever(s) Eyes Eyes: Denies change in vision or diplopia ENT ENT ED: Denies rhinorrhea or sore throat Cardiovascular Cardiovascular: Reports orthopnea; Denies chest pain, palpitations or pedal edema Respiratory/Chest Respiratory/Chest: Reports cough, dyspnea, dyspnea on exertion, orthopnea and productive cough; Denies hemoptysis Gastrointestinal Gastrointestinal: Denies abdominal pain, diarrhea, nausea or vomiting Genitourinary Genitourinary ED: Denies dysuria or hematuria Musculoskeletal Musculoskeletal: Denies back pain or neck pain Integumentary Denies abscess or rash Neurologic Neurologic: Denies headache(s), paresthesias or weakness Psychiatric Psychiatric: Denies anxiety or suicidal thoughts EXAM Physical Exam Const Vital Signs: 06/12/21 15:57 06/12/21 16:26 06/12/21 16:27 Temperature 96 F L Temperature Source Temporal Pulse Rate 112 H Respiratory Rate 16 Respiratory Effort Respiratory Pattern Blood Pressure 205/112 H Blood Pressure Mean 143 Pulse Ox 92 93 Oxygen Delivery Method Room Air Room Air Room Air Oxygen Flow Rate (L/min) 06/12/21 16:40 06/12/21 16:59 06/12/21 17:00 Temperature 96 F L 98 F Temperature Source Temporal Temporal Pulse Rate 105 H 105 H 99 Respiratory Rate 22 H 22 H 20 H Respiratory Effort Respiratory Pattern Tachypnea Blood Pressure 205/112 H 196/124 H Blood Pressure Mean 143 148 Pulse Ox 93 91 Oxygen Delivery Method Room Air Nasal Cannula Oxygen Flow Rate (L/min) 6 06/12/21 17:53 06/12/21 17:56 06/12/21 18:00 Temperature 98 F 97.9 F Temperature Source Temporal Temporal Pulse Rate 99 96 Respiratory Rate 20 H 24 H Respiratory Effort Non-Labored Respiratory Pattern Tachypnea Blood Pressure 196/124 H 216/117 H Blood Pressure Mean 148 150 Pulse Ox 91 93 Oxygen Delivery Method Nasal Cannula Nasal Cannula Nasal Cannula Oxygen Flow Rate (L/min) 6 06/12/21 18:35 06/12/21 19:06 Temperature 98 F Temperature Source Temporal Pulse Rate 103 H Respiratory Rate 27 H Respiratory Effort Respiratory Pattern Blood Pressure 192/93 H 198/101 H Blood Pressure Mean 126 133 Pulse Ox 95 Oxygen Delivery Method Room Air Oxygen Flow Rate (L/min) Positive well nourished and well developed General Appearance ED: well developed and NAD HEENT Reports moist mucous membranes normocephalic and atraumatic Eyes PERRL and EOMs intact bilaterally Neck full ROM and supple Resp Resp Narrative: Mild tachypnea. No distress. Conversive in 10 word sentences. Bibasilar Rales. Cardio regular rate, regular rhythm, no murmurs and no JVD Rate: tachycardic GI non-tender and non-distended Auscultation: normoactive bowel sounds Palpation: soft Back/Spine no CVA tenderness General Back: other FROM Extremity normal to inspection, no calf tenderness and no pedal edema General Extremety ED: Negative for edema, pulses abnormal or tenderness General Extremity: Negative for edema or pulses abnormal Neuro oriented x3, CN's II-XII intact bilaterally and no sensory deficits noted Sensorium / Orientation: awake and alert Motor Exam: strength 5/5 throughout Skin no rashes or lesions noted and no wounds MDM MDM MDM Narrative Medical decision making narrative: We ambulated the patient a short distance, she desatted to 85% on room air. Patient returns with a very low potassium of 2.5, she initially was very hypertensive, with observation she remained so so she was given hydralazine after confirming that she does not have a history of aortic stenosis. Her x-ray shows pneumonitis consistent with her prior x-ray when she had COVID. She sounds wet. I performed a BNP as well as a D-dimer. They are both elevated. CT angiography of the chest was performed, it is negative for PE, but does show groundglass opacities consistent with Covid pneumonitis. Unknown if she could have Covid again, since she just got over it. With a white blood count of 4.6 unlikely to be bacterial pneumonia. Concerned more about this being cardiogenic pulmonary edema, also could be noncardiogenic pulmonary edema. She is stable at rest although a little tachypnea, and does not need the ICU at this time. Started replacing potassium and will admit for further evaluation and testing. Also giving Lasix and more hydralazine. Lab Data Attestation: I reviewed the patient's lab results. Labs: Laboratory Results - last 24 hr 06/12/21 06/12/21 06/12/21 16:55 16:55 16:55 WBC 4.6 RBC 3.88 L Hgb 12.4 Hct 38.0 MCV 97.9 MCH 32.0 MCHC 32.6 RDW Std Deviation 49.1 H RDW Coeff of [place] 13.7 Plt Count 215 MPV 12.0 Immature Gran % (Auto) 0.200 Neut % (Auto) 71.9 H Lymph % (Auto) 13.4 L [place] % (Auto) 8.0 Eos % (Auto) 6.1 H Baso % (Auto) 0.4 Absolute Neuts (auto) 3.3 Absolute Lymphs (auto) 0.62 L Nucleated RBC % 0 D-Dimer Quant (PE/DVT) Sodium 147 H Potassium 2.5 L* Chloride 114 H Carbon Dioxide 24.0 Anion Gap 9 BUN 7 Creatinine 0.54 L Estim Creat Clear Calc 36.53 Est GFR (MDRD) Af Amer 142 Est GFR (MDRD) Non-Af 117 BUN/Creatinine Ratio 12.9 Glucose 93 Lactic Acid 1.0 Calcium 8.3 L Total Bilirubin 0.30 AST 13 L ALT 23 Alkaline Phosphatase 196 H Troponin I High Sens 16 B-Natriuretic Peptide Total Protein 6.6 Albumin 3.3 Globulin 3.3 Albumin/Globulin Ratio 1.0 Urine Color Urine Clarity Urine pH Ur Specific [place] Urine Protein Urine Glucose (UA) Urine Ketones Urine Occult Blood Urine Nitrite Urine Bilirubin Urine Urobilinogen Ur Leukocyte Esterase Urine RBC Urine WBC Ur Squamous Epith Cells Urine Bacteria Urine Mucus 06/12/21 06/12/21 06/12/21 16:55 16:55 17:03 WBC RBC Hgb Hct MCV MCH MCHC RDW Std Deviation RDW Coeff of [place] Plt Count MPV Immature Gran % (Auto) Neut % (Auto) Lymph % (Auto) [place] % (Auto) Eos % (Auto) Baso % (Auto) Absolute Neuts (auto) Absolute Lymphs (auto) Nucleated RBC % D-Dimer Quant (PE/DVT) 0.80 H* Sodium Potassium Chloride Carbon Dioxide Anion Gap BUN Creatinine Estim Creat Clear Calc Est GFR (MDRD) Af Amer Est GFR (MDRD) Non-Af BUN/Creatinine Ratio Glucose Lactic Acid Calcium Total Bilirubin AST ALT Alkaline Phosphatase Troponin I High Sens B-Natriuretic Peptide 884.7 H Total Protein Albumin Globulin Albumin/Globulin Ratio Urine Color Yellow Urine Clarity Clear Urine pH 8.0 Ur Specific [place] 1.015 Urine Protein Negative Urine Glucose (UA) Normal Urine Ketones Negative Urine Occult Blood Negative Urine Nitrite Negative Urine Bilirubin Negative Urine Urobilinogen Normal Ur Leukocyte Esterase Negative Urine RBC 0 SEEN Urine WBC 0 SEEN Ur Squamous Epith Cells 0 SEEN Urine Bacteria 0 SEEN Urine Mucus 0 SEEN Radiography Diagnostic Testing: Clinical Impression(s) from Imaging Studies Chest X-Ray 06/12/21 16:30 IMPRESSION: 1. Multilobar pulmonary infiltrates may represent recurrent pneumonia and/or fibrotic lung disease or previous infection. Electronically Signed: Landon Foster MD (Brooks) at 16:45 EST , Chest CTA 06/12/21 17:55 IMPRESSION: No evidence of acute pulmonary emboli to the segmental level. Diffuse bilateral groundglass and reticular opacities consistent with Covid pneumonia. 1.6 cm intermediate density cyst in the left upper renal pole. Consider follow-up renal ultrasound. Electronically Signed: Bebeto Garcia MD at 19:56 EST , STUDY: X-RAY CHEST REASON FOR EXAM: Female, 70 years old. sob TECHNIQUE: AP COMPARISON: 03/24/2021 FINDINGS: Multilobar reticular and groundglass opacities throughout the left more than right lung have not significantly changed since prior x-ray 03/24/2021 There is no demonstrated pleural abnormality. Normal size heart. Sternal wires and mediastinal surgical clips compatible with prior CABG. Normal visualized pulmonary arteries. There is atherosclerotic calcification of the aortic arch with tortuosity. There is demineralization of the osseous structures. Normal visualized ribs, clavicles, and shoulders. There is no demonstrated abnormality of the visualized soft tissue structures of the upper abdomen. RAD/Chest PA and Lateral IMPRESSION: 1. Multilobar pulmonary infiltrates may represent recurrent pneumonia and/or fibrotic lung disease or previous infection. Electronically Signed: Landon Foster MD ([place]) at 16:45 EST , Discharge Plan Dx/Rx/DC Orders Clinical Impression: Hypoxemia, Pulmonary edema, Acute hypokalemia, Hypertensive urgency Disposition Disposition: Acute Care [facility]
--- NOTE | 2021-06-12 16:30 | RAD_ITS ---
STUDY: X-RAY CHEST REASON FOR EXAM: Female, 70 years old. sob TECHNIQUE: AP COMPARISON: 03/24/2021 FINDINGS: Multilobar reticular and groundglass opacities throughout the left more than right lung have not significantly changed since prior x-ray 03/24/2021 There is no demonstrated pleural abnormality. Normal size heart. Sternal wires and mediastinal surgical clips compatible with prior CABG. Normal visualized pulmonary arteries. There is atherosclerotic calcification of the aortic arch with tortuosity. There is demineralization of the osseous structures. Normal visualized ribs, clavicles, and shoulders. There is no demonstrated abnormality of the visualized soft tissue structures of the upper abdomen. RAD/Chest PA and Lateral IMPRESSION: 1. Multilobar pulmonary infiltrates may represent recurrent pneumonia and/or fibrotic lung disease or previous infection. Electronically Signed: Landon Foster MD ([place]) at 16:45 EST ,
[2021-06-12] MEDS: Albuterol 2.5 MG/3 ML VIAL.NEB. INHALATION (16:40)
[2021-06-12 17:26] LABS: Bacteria 0 SEEN /hpf (None Seen); Mucous, Urine 0 SEEN /hpf (<or=2+); Red Blood Cells-Urine 0 SEEN /hpf (0-5); Squamous Epithelial Cells - UA 0 SEEN /hpf (5-10); White Blood Cells 0 SEEN /hpf (0-5)
[2021-06-12 17:34] LABS: Color, Urine Yellow (Yellow); Glucose, Dipstick Normal (Normal); Ketone-Dipstick Negative (Negative); Leukocyte Esterase-Dipstick Negative /ul (Negative); Nitrite-Dipstick Negative (Negative); Occult Blood-Urine Negative /ul (Negative); Protein-Dipstick Negative (Negative); Specific Gravity, Urine 1.015 (1.002-1.030); Urine Bilirubin Dipstick Negative (Negative); Urine Clarity Clear (Clear); Urine Urobilinogen Normal (Normal)
[2021-06-12 17:35] LABS: Absolute Lymphocyte Count 0.62 X10^3/uL (0.83-4.51); Absolute Neutrophil Count 3.3 X10^3/uL (2.0-7.7); Basophil# 0.02 X10^3/uL; Basophil% 0.4 % (0-1); Eosinophil# 0.28 X10^3/uL; Eosinophils% 6.1 % (0-5); Hemoglobin 12.4 g/dL (12.0-15.0); Lymphocyte # 0.62 X10^3/ul (0.83-4.51); Lymphocyte % 13.4 % (19-41); Mean Corp Hgb Conc 32.6 g/dL (32-36); Mean Corpuscular Volume 97.9 fL (81-99); Monocyte# 0.37 X10^3/uL; NRBC Flagged by Analyzer 0 % (0-5); Neutrophil # 3.31 X10^3/uL (2.7-7.7); Neutrophil % 71.9 % (47-70); Platelet Count 215 K/mm3 (150-450); RBC Distribution Width CV 13.7 % (11.6-14.6); RBC Distribution Width SD 49.1 fl (35.1-43.9); Red Blood Count 3.88 M/mm3 (4.2-5.4); White Blood Count 4.6 K/mm3 (4.4-11.0)
[2021-06-12 17:55] LABS: AST(SGOT) 13 U/L (15-37); Alanine Aminotransfer ALT/SGPT 23 U/L (13-56); Albumin, Serum 3.3 g/dL (3.2-5.0); Alkaline Phosphatase 196 U/L (45-117); Anion Gap 9 (5-15); BUN 7 mg/dL (7-18); BUN/Creat Ratio 12.9 RATIO (10-20); Calcium,Total 8.3 mg/dL (8.5-10.1); Chloride 114 mmol/L (98-107); Creatinine, Serum 0.54 mg/dL (0.55-1.02); EST Glomerular Filtration Rate 117 mL/min (>60); Est Glom Filt Rate - Afr Amer 142 mL/min (>60); Estimated Creatinine Clearance 36.53 ml/min; Globulin 3.3 g/dL (2.2-4.2); Glucose 93 mg/dL (74-106); Potassium 2.5 mmol/L (3.5-5.1); Protein, Total 6.6 g/dL (6.4-8.2); Sodium Level 147 mmol/L (136-145); Troponin-I HS 16 pg/mL (3.0-54.0)
--- NOTE | 2021-06-12 17:55 | CT_ITS ---
INDICATION: sob, elevated d-dimer EXAMINATION: CTA Chest WO/W Contrast Injection TECHNIQUE: Helically acquired images were obtained of the chest following administration of IV contrast. A radiation dose optimization technique was used for this scan. 3D postprocessing images including MIPS were reviewed. IV Contrast dosage and agent: IV 75mL [id number] COMPARISON: 03/24/2021 FINDINGS: Lungs: Diffuse bilateral groundglass and reticular opacities. Mediastinum: The heart is mildly enlarged. No mediastinal, hilar or axillary adenopathy. Mild aortic arch and coronary artery calcifications. No obvious filling defect seen within the visualized pulmonary arteries. Pleura: Unremarkable Bones/Soft tissues: There are diffuse degenerative changes of the spine. Upper abdomen: Partially visualized intermediate density cyst in the left upper renal pole measuring 1.6 cm (image 4, series 2). CT/CTA Chest W/WO Contrast IMPRESSION: No evidence of acute pulmonary emboli to the segmental level. Diffuse bilateral groundglass and reticular opacities consistent with Covid pneumonia. 1.6 cm intermediate density cyst in the left upper renal pole. Consider follow-up renal ultrasound. Electronically Signed: Bebeto Garcia MD at 19:56 EST ,
[2021-06-12] MEDS: hydrALAZINE 20 MG/ML Vial 10 MG IV ×2 (18:06→20:44)
[2021-06-12 18:26] LABS: BNP,B-Type NATRIURETIC PEPTIDE 884.7 pg/mL (0-100)
--- NOTE | 2021-06-12 20:40 | CASEMGMT ---
ANG CM to room to meet with patient for initial transition planning/care coordination assessment. ANG ZHANG introduced self and role at [facility]. Patient voices understanding and consents to assessment at this time. No visitors present at bedside. Patient is alert and oriented and answers all questions appropriately. Care providers, pharmacy, and demographics verified/updated at this time. Admitting Dx: Hypoxemia, pulmonary edema, hypertensive urgency, hypokalemia PCP: Elroy Wellington Specialists: Trang- cardiology, Friend- GI Preferred Pharmacy: [facility] Insurance: [facility] Prescription Benefit: yes Living Will/HPOA: Patient states she has a living will and HPOA is Jeremy Blue. Patient made aware these forms are not on file at [facility] and may be brought in to be scanned into record. LNOK: Jeremy Blue Living Arrangements: Patient lives with in one story house with 2 steps to enter the home with a handrail present. Patient states independent with ADLs prior to hospitalization. Patient typically ambulates independently without the use of an assistive device. Smoking/ETOH: Never smoker, denies ETOH use Transportation: Patient drives self and also available to drive patient. Patient denies transportation concerns. DME/HHC/SNF: Patient has a shower chair, grab bars and cane available in the home. Patient denies need for additional DME at this time. Denies previous HHC or SNF stays. Patient has had home oxygen in the past following a hospital admission but does not currently have home oxygen. Patient has no concerns with going home at time of discharge. CM to follow for any discharge planning/needs. Patient voices no concerns/needs at this time. Advised patient to ask for CM if any questions/concerns/needs arise. Voices understanding. Plan: home
[2021-06-12] MEDS: Furosemide 20 MG/2 ML VIAL IV (20:47)
[2021-06-12] MEDS: Potassium Chloride 10mEq/100mL 10 MEQ/100 ML IV.SOLN. 100 MEQ IV BOLUS (20:48)
--- NOTE | 2021-06-12 21:11 | HP.PCM.HOS_ITS ---
HPI - General General Date of Admission: 06/12/21 Date of Service: 06/12/21 Chief Complaint: Dyspnea, hypoxia HPI Narrative The patient is a 70 y/o F w/ PMHx: HTN, HLD, Chronic back pain, GERD, CAD w/ recent CABG x 5 at [facility] 10/2020, Hx of Covid pneumonia 03/2021 who now re- presents to the [facility] ED on 06/12/21 with history of increasing fatigue, malaise, cough with occasional white sputum, occasional wheeze with no fevers or chills with increased fatigue malaise, poor oral intake as well as exertional dyspnea worsening over the last 14 days. She notes feeling weak and fatigued following her recent COVID illness with only mild improvement. She never had COVID booster vaccination following her COVID illness. Work-up in the ED included T 97.9, heart rate 96, BP initially 216/117, respiratory rate 24, 93% on room air however ED physician did note when she exerted herself in the room she dropped to 85% but corrected with rest, CBC with WC 4.6,, 12.4, platelet 215 with lymphopenia, D-dimer 0.80, CMP with sodium 147, potassium 2.5, chloride 114, lactic acid 1.0, total bilirubin 0.30, AST/ALT 13/23, troponin XVI, BNP 84.7, urinalysis not marked appearing, blood culture x2 pending per ED, urine culture pending per ED, chest x-ray with multilobar pulmonary infiltrates possibly recurrent pneumonia/fibrotic lung disease, follow-up CTPA with no evidence of acute pulmonary emboli to the segmental level, diffuse bilateral groundglass and reticular opacities consistent with COVID pneumonia, 1.6 cm intermittent density cyst in the left upper renal pole. In the ED patient ministered Lasix 20 mg IV x1 as well as hydralazine 10 mg IV x2. [facility] Medical History Anemia Chronic pain Essential hypertension Facial droop GERD (gastroesophageal reflux disease) History of back pain HLD (hyperlipidemia) Pinched vertebral nerve Postoperative atrial fibrillation (11/10/20) Scoliosis Home Medications tramadol 100 mg PO TID PRN 11/02/20 [History Last Taken 12/15/20] rosuvastatin 20 mg PO QHS 12/15/20 [History Last Taken 12/14/20] ferrous sulfate 325 mg PO BID 02/22/21 [History Last Taken Unknown] ferrous sulfate [iron] 325 mg PO BID #60 tab 04/04/21 [Rx Last Taken Unknown] aspirin 81 mg PO DAILY@0800 06/12/21 [History Last Taken Unknown] carisoprodol 350 mg PO BID 06/12/21 [History Last Taken Unknown] labetalol 200 mg PO BID 06/12/21 [History Last Taken Unknown] pantoprazole [Protonix] 40 mg PO DAILY 06/12/21 [History Last Taken Unknown] valsartan 320 mg PO DAILY 06/12/21 [History Last Taken Unknown] Allergy/AdvReac Type Severity Reaction Status Date / Time levofloxacin Allergy Severe leg pain Verified 06/12/21 15:57 amiodarone Allergy mental Verified 06/12/21 15:57 confusion Penicillins Allergy Unknown Verified 06/12/21 15:57 Sulfa (Sulfonamide Allergy Rash Verified 06/12/21 15:57 Antibiotics) lorazepam [From Ativan] AdvReac I went Verified 06/12/21 15:57 crazy Family History Mother Alcoholism Father Hypertension Brother Diabetes Sister Diabetes Hypertension Sister No problems noted. Son Hypertension Other Kidney disease Surgical History H/O coronary artery bypass surgery (03/17/21) History of appendectomy History of cholecystectomy History of left heart catheterization (11/03/20) Social History (Updated 06/12/21 @ 22:34 by Veronica Srinivasan) household members: spouse pets and animals: Yes (cats) Smoking Status: Never smoker alcohol intake: never substance use type: does not use ROS ROS Narrative Admission Review of Systems: CONSTITUTIONAL: No weight loss, fever, chills, + weakness or fatigue. HEENT: Eyes: No visual loss, blurred vision, double vision or yellow sclerae. Ears, Nose, Throat: No hearing loss, sneezing, congestion, runny nose or sore throat. SKIN: No rash or itching, lesions, wounds. CARDIOVASCULAR: No chest pain, chest pressure or chest discomfort, palpitations, edema, orthopnea, syncopal events. RESPIRATORY: + shortness of breath, cough with occasional mild sputum, occasional wheezing, No hemoptysis. GASTROINTESTINAL: No anorexia, nausea, vomiting or diarrhea, abdominal pain, melena, BRBPR. GENITOURINARY: No dysuria, frequency, urgency or retention. NEUROLOGICAL: No headache, dizziness, syncope, paralysis, ataxia, numbness or tingling in the extremities, focal weakness, change in bowel or bladder control, seizure. MUSCULOSKELETAL: + muscle, back pain, joint pain or stiffness. HEMATOLOGIC: No anemia, bleeding or bruising. LYMPHATICS: No enlarged nodes. No history of splenectomy. PSYCHIATRIC: No history of depression or anxiety. ENDOCRINOLOGIC: No reports of sweating, cold or heat intolerance. No polyuria or polydipsia. ALLERGIES: No history of asthma, hives, eczema or rhinitis. Vital Signs Vital Signs Vital Signs: 06/12/21 15:57 06/12/21 16:26 06/12/21 16:27 Temperature 96 F L Temperature Source Temporal Pulse Rate 112 H Respiratory Rate 16 Respiratory Effort Respiratory Pattern Blood Pressure 205/112 H Blood Pressure Mean 143 Pulse Ox 92 93 Oxygen Delivery Method Room Air Room Air Room Air Oxygen Flow Rate (L/min) 06/12/21 16:40 06/12/21 16:59 06/12/21 17:00 Temperature 96 F L 98 F Temperature Source Temporal Temporal Pulse Rate 105 H 105 H 99 Respiratory Rate 22 H 22 H 20 H Respiratory Effort Respiratory Pattern Tachypnea Blood Pressure 205/112 H 196/124 H Blood Pressure Mean 143 148 Pulse Ox 93 91 Oxygen Delivery Method Room Air Nasal Cannula Oxygen Flow Rate (L/min) 6 06/12/21 17:53 06/12/21 17:56 06/12/21 18:00 Temperature 98 F 97.9 F Temperature Source Temporal Temporal Pulse Rate 99 96 Respiratory Rate 20 H 24 H Respiratory Effort Non-Labored Respiratory Pattern Tachypnea Blood Pressure 196/124 H 216/117 H Blood Pressure Mean 148 150 Pulse Ox 91 93 Oxygen Delivery Method Nasal Cannula Nasal Cannula Nasal Cannula Oxygen Flow Rate (L/min) 6 06/12/21 18:35 06/12/21 19:06 06/12/21 20:50 Temperature 98 F 97.8 F Temperature Source Temporal Temporal Pulse Rate 103 H 110 H Respiratory Rate 27 H 30 H Respiratory Effort Respiratory Pattern Blood Pressure 192/93 H 198/101 H 169/107 H Blood Pressure Mean 126 133 127 Pulse Ox 95 95 Oxygen Delivery Method Room Air Room Air Oxygen Flow Rate (L/min) Weight Weight: 128 lb Body Mass Index (BMI) 25.0 Physical Exam Narrative Physical Examination: General: awake, alert, oriented x 3 and cooperative, seated upright in the ED bed, anxious, fatigued, asking for her chronic pain regimen for her lower lumbar back pain with radiculopathy RLE. Skin: normal color, normal turgor, no icterus, no cyanosis. HEENT: AT/NC, EOMI, PERRLA, mildly dry MM, no carotid bruits or JVD noted. Lungs: Diffusely diminished, greater bases, mildly increased respiratory rate, mild crakcles, no ronchi or wheezing. Heart: Mildly tachycardic with regular rhythm; no gallop, rub audible. Abdomen: soft, NTTP, ND, distant normal BS, no HSM. Extremities: no cyanosis, clubbing, or edema. Neurological: patient awake, alert, oriented as noted; cognitive function intact; pupils equally reactive to light and accomodation; cranial nerves II-XII grossly normal, moving all 4 extremities, no focal deficits, strength moderately to severely globally decreased secondary to acute presentation. Psychiatric: affect appears fatigued, no acute evidence of depressive or anxiety feelings. Results Lab / Micro Data Result Diagrams: 06/12/21 16:55 06/12/21 16:55 Labs: Laboratory Results - last 24 hr 06/12/21 16:55: WBC 4.6, RBC 3.88 L, Hgb 12.4, Hct 38.0, MCV 97.9, MCH 32.0, MCHC 32.6, RDW Std Deviation 49.1 H, RDW Coeff of [place] 13.7, Plt Count 215, MPV 12.0, Immature Gran % (Auto) 0.200, Neut % (Auto) 71.9 H, Lymph % (Auto) 13.4 L, [place] % (Auto) 8.0, Eos % (Auto) 6.1 H, Baso % (Auto) 0.4, Absolute Neuts (auto) 3.3, Absolute Lymphs (auto) 0.62 L, Nucleated RBC % 0 06/12/21 16:55: Sodium 147 H, Potassium 2.5 L*, Chloride 114 H, Carbon Dioxide 24.0, Anion Gap 9, BUN 7, Creatinine 0.54 L, Estim Creat Clear Calc 36.53, Est GFR (MDRD) Af Amer 142, Est GFR (MDRD) Non-Af 117, BUN/Creatinine Ratio 12.9, Glucose 93, Calcium 8.3 L, Total Bilirubin 0.30, AST 13 L, ALT 23, Alkaline Phosphatase 196 H, Troponin I High Sens 16, Total Protein 6.6, Albumin 3.3, Globulin 3.3, Albumin/Globulin Ratio 1.0 06/12/21 16:55: Lactic Acid 1.0 06/12/21 16:55: B-Natriuretic Peptide 884.7 H 06/12/21 16:55: D-Dimer Quant (PE/DVT) 0.80 H* 06/12/21 17:03: Urine Color Yellow, Urine Clarity Clear, Urine pH 8.0, Ur Specific [place] 1.015, Urine Protein Negative, Urine Glucose (UA) Normal, Urine Ketones Negative, Urine Occult Blood Negative, Urine Nitrite Negative, Urine Bilirubin Negative, Urine Urobilinogen Normal, Ur Leukocyte Esterase Negative, Urine RBC 0 SEEN, Urine WBC 0 SEEN, Ur Squamous Epith Cells 0 SEEN, Urine Bacteria 0 SEEN, Urine Mucus 0 SEEN Radiology Impression Chest X-Ray 06/12/21 16:30 IMPRESSION: 1. Multilobar pulmonary infiltrates may represent recurrent pneumonia and/or fibrotic lung disease or previous infection. Electronically Signed: Landon Foster MD (Brooks) at 16:45 EST , Chest CTA 06/12/21 17:55 IMPRESSION: No evidence of acute pulmonary emboli to the segmental level. Diffuse bilateral groundglass and reticular opacities consistent with Covid pneumonia. 1.6 cm intermediate density cyst in the left upper renal pole. Consider follow-up renal ultrasound. Electronically Signed: Bebeto Garcia MD at 19:56 EST , Assessment & Plan Assessment/Plan (1) Hypoxemia: (2) Acute hypokalemia: PLAN: The patient is a 70 y/o F w/ PMHx: HTN, HLD, Chronic back pain, GERD, CAD w/ recent CABG x 5 at [facility] 10/2020, Hx of Covid pneumonia 03/2021 who now re-presents to the [facility] ED on 06/12/21 with history of increasing fatigue, malaise, cough with occasional white sputum, occasional wheeze with no fevers or chills with increased fatigue malaise, poor oral intake as well as exertional dyspnea worsening over the last 14 days. #1. Acute Hypoxia secondary to Acute Bilateral Pneumonia, Unclear Organism, Possibly recurrent Acute Viral Syndrome, COVID-19 w/ different strain versus alternate viral etiology and/or ? component Volume overload given recent COVID illness: Will admit to the PCU to be cautious given possilby overload, administered pulse dose lasix 20 mg x 1 in the ED, COVID PCR requested and given last illness 03/2021 should be negative if not COVID recurrence, maintain on COVID precautions, will maintain on oxygen with wean as tolerated to room air, PRN albuterol, HOB, IS parameters w/ pending sputum cultures, respiratory viral panel and urine antigens, will obtain procalcitonin, CRP, CPK, Ferritin, LDH, trop, continue supportive care including q 2 hour turning including prone given no prone bed availability and judicious hydration, closely monitor for worsening status for ARDS and multiorgan failure, will initiate and continue IV decadron x 10 doses; however if negative COVID will discontinue. Most recent ECHO 02/23/21 w/ LV size, normal LV systolic function, EF 65% with no marked valvular disease thus will not repeat given recent timeline. #2. Hypokalemia: Admission K+ 2.5, unfortunately unable to obtain magnesium level, supplementation given, repeat level in AM. #3. Incidental renal cyst: CTA chest with noted 1.6 cm intermediate density cyst in the left upper renal pole, will need follow-up renal ultrasound potentially outpatient given acute presentation. #4. Chronic lumbar back pain with right-sided radiculopathy: Patient on chronic tramadol, will continue and per discussion with patient will initiate low-dose twice daily gabapentin. Encourage frequent positional changes. #5. CAD: Status post CABG x 5, continue aspirin, labetalol, valsartan, statin regimen. #6. Hypertension: Continue home regimen including valsartan, labetalol with hold parameters, PRN hydralazine. #7. Hyperlipidemia: Continue home statin regimen. #8. GERD: We will continue patient on PPI. #9. DVT prophylaxis: SCDs, Lovenox. Charges/Coding Visit Charges Inpatient E&M: 75302 Init Hosp L3
[2021-06-12 21:57] LABS: Ferritin 42 ng/mL (8-252); LDH 281 U/L (84-246)
[2021-06-12 22:09] LABS: Procalcitonin 0.05 ng/mL (0.00-0.09)
[2021-06-12] MEDS: Potassium Chloride Oral Tablet 20 MEQ 60 MEQ PO (23:23)
[2021-06-12] MEDS: traMADol 50 MG Tablet 100 MG PO (23:23)
[2021-06-13] VITALS (13 sets, daily range): BP systolic 153–176; BP diastolic 89–98; PULSE 102–110; RESP 18–24; TEMP 36.4–36.8; O2SAT 93–96
[2021-06-13 00:09] LABS: Troponin-I HS 17 pg/mL (3.0-54.0)
[2021-06-13] MEDS: Ferrous Sulfate 325 MG Tablet PO ×3 (00:10→21:29)
[2021-06-13] MEDS: dexAMETHasone 10 MG/ML Vial 6 MG IV ×2 (00:10→10:48)
[2021-06-13] MEDS: Enoxaparin 30 MG/0.3 ML Syringe SC ×3 (00:11→21:29)
[2021-06-13] MEDS: Atorvastatin Calcium 40 MG Tablet PO ×2 (00:11→21:29)
[2021-06-13] MEDS: MELATONIN 3 MG TABLET PO ×2 (00:14→21:29)
[2021-06-13] MEDS: 0.9% Saline Lock 10 ML Syringe IV ×2 (00:17→10:52)
[2021-06-13 01:11] LABS: Troponin-I HS 20 pg/mL (3.0-54.0)
[2021-06-13] MEDS: tiZANidine HCl 2 MG Tablet PO ×2 (01:52→21:31)
[2021-06-13] MEDS: BENZOCAINE/MENTHOL 1 LOZENGE MUCOUS MEM ×2 (04:52→23:21)
[2021-06-13] MEDS: traMADol 50 MG Tablet 100 MG PO ×3 (05:38→21:29)
[2021-06-13] MEDS: Acetaminophen 325 MG Tablet 650 MG PO ×3 (06:17→19:01)
[2021-06-13 06:19] LABS: Absolute Lymphocyte Count 0.45 X10^3/uL (0.83-4.51); Absolute Neutrophil Count 5.6 X10^3/uL (2.0-7.7); Basophil# 0.02 X10^3/uL; Basophil% 0.3 % (0-1); Eosinophil# 0.01 X10^3/uL; Eosinophils% 0.2 % (0-5); Hemoglobin 15.2 g/dL (12.0-15.0); Lymphocyte # 0.45 X10^3/ul (0.83-4.51); Lymphocyte % 7.2 % (19-41); Mean Corp Hgb Conc 33.8 g/dL (32-36); Mean Corpuscular Hgb 32.2 pg (27.0-32.0); Mean Corpuscular Volume 95.3 fL (81-99); Mean Platelet Vol. 12.1 fl (6.2-12.0); Monocyte# 0.15 X10^3/uL; Monocyte% 2.4 % (0-10); NRBC Flagged by Analyzer 0 % (0-5); Neutrophil # 5.62 X10^3/uL (2.7-7.7); Neutrophil % 89.6 % (47-70); POSITIVE DIFFERENTIAL YES; Platelet Count 273 K/mm3 (150-450); RBC Distribution Width CV 13.8 % (11.6-14.6); RBC Distribution Width SD 48.7 fl (35.1-43.9); Red Blood Count 4.72 M/mm3 (4.2-5.4); White Blood Count 6.3 K/mm3 (4.4-11.0)
[2021-06-13 06:22] LABS: Differential Indicated SCAN CRITERIA MET
[2021-06-13 06:51] LABS: ALB/GLOB Ratio 0.9 RATIO (0.9-2.4); AST(SGOT) 14 U/L (15-37); Alanine Aminotransfer ALT/SGPT 23 U/L (13-56); Albumin, Serum 3.6 g/dL (3.2-5.0); Alkaline Phosphatase 232 U/L (45-117); Anion Gap 8 (5-15); BUN 7 mg/dL (7-18); BUN/Creat Ratio 13.4 RATIO (10-20); Calcium,Total 8.9 mg/dL (8.5-10.1); Chloride 106 mmol/L (98-107); Creatinine, Serum 0.52 mg/dL (0.55-1.02); EST Glomerular Filtration Rate 122 mL/min (>60); Est Glom Filt Rate - Afr Amer 148 mL/min (>60); Estimated Creatinine Clearance 36.53 ml/min; Globulin 3.8 g/dL (2.2-4.2); Glucose 160 mg/dL (74-106); Protein, Total 7.4 g/dL (6.4-8.2); Sodium Level 140 mmol/L (136-145); Troponin-I HS 15 pg/mL (3.0-54.0)
[2021-06-13] MEDS: Ipratropium/Albuterol Sulfate 3 ML AMPUL.NEB INHALATION ×3 (07:45→19:45)
[2021-06-13] MEDS: Labetalol 200 MG Tablet PO ×2 (09:34→21:29)
[2021-06-13] MEDS: Pantoprazole Sodium 40 MG Tablet PO (09:34)
[2021-06-13] MEDS: Aspirin E.C. 81 MG Tablet PO (09:35)
[2021-06-13] MEDS: Losartan Potassium 100 MG Tablet PO (10:48)
--- NOTE | 2021-06-13 13:17 | PN.HOSP_ITS ---
Documented by User: Philip GUILLEN 06/13/21 14:09 Subjective Subjective Patient is a 70-year-old female comfortably resting in bed, alert and orient x3. Patient reports that her shortness of breath has improved from mission, although she feels weak. Denies development of any new symptoms overnight. Does not appear in acute distress. Objective Data Objective Data Vital Signs: Vital Signs Temp Pulse Resp BP Pulse Ox 97.5 F L 110 H 20 H 176/95 H 96 06/13/21 09:38 06/13/21 09:38 06/13/21 09:38 06/13/21 09:38 06/13/21 09:38 Oxygen Flow Rate (L/min) 6 Oxygen Delivery Method Room Air Weight: 130 lb 1.164 oz Body Mass Index (BMI) 25.4 Intake & Output: Intake and Output for Last 24 Hours 06/11/21 06/12/21 06/13/21 23:59 23:59 23:59 Intake Total 100 / 400 940 / 940 Balance 100 / 400 940 / 940 Lab / Micro Data Result Diagrams: 06/13/21 04:51 06/13/21 04:51 Labs: Laboratory Results - last 24 hr 06/12/21 16:55: WBC 4.6, RBC 3.88 L, Hgb 12.4, Hct 38.0, MCV 97.9, MCH 32.0, MCHC 32.6, RDW Std Deviation 49.1 H, RDW Coeff of [place] 13.7, Plt Count 215, MPV 12.0, Immature Gran % (Auto) 0.200, Neut % (Auto) 71.9 H, Lymph % (Auto) 13.4 L, [place] % (Auto) 8.0, Eos % (Auto) 6.1 H, Baso % (Auto) 0.4, Absolute Neuts (auto) 3.3, Absolute Lymphs (auto) 0.62 L, Nucleated RBC % 0 06/12/21 16:55: Sodium 147 H, Potassium 2.5 L*, Chloride 114 H, Carbon Dioxide 24.0, Anion Gap 9, BUN 7, Creatinine 0.54 L, Estim Creat Clear Calc 36.53, Est GFR (MDRD) Af Amer 142, Est GFR (MDRD) Non-Af 117, BUN/Creatinine Ratio 12.9, Glucose 93, Calcium 8.3 L, Total Bilirubin 0.30, AST 13 L, ALT 23, Alkaline Phosphatase 196 H, Troponin I High Sens 16, Total Protein 6.6, Albumin 3.3, Globulin 3.3, Albumin/Globulin Ratio 1.0 06/12/21 16:55: Lactic Acid 1.0 06/12/21 16:55: B-Natriuretic Peptide 884.7 H 06/12/21 16:55: D-Dimer Quant (PE/DVT) 0.80 H* 06/12/21 16:55: Ferritin Cancelled, Lactate Dehydrogenase Cancelled, C-React Prot Ext Range Cancelled 06/12/21 16:55: Ferritin 42, Lactate Dehydrogenase 281 H, C-React Prot Ext Range 14.40 H 06/12/21 17:03: Urine Color Yellow, Urine Clarity Clear, Urine pH 8.0, Ur Specific [place] 1.015, Urine Protein Negative, Urine Glucose (UA) Normal, Urine Ketones Negative, Urine Occult Blood Negative, Urine Nitrite Negative, Urine Bilirubin Negative, Urine Urobilinogen Normal, Ur Leukocyte Esterase Negative, Urine RBC 0 SEEN, Urine WBC 0 SEEN, Ur Squamous Epith Cells 0 SEEN, Urine Bacteria 0 SEEN, Urine Mucus 0 SEEN 06/12/21 21:29: Procalcitonin 0.05 06/12/21 22:45: COVID-19 (JAYLIN) Not Detected 06/12/21 23:25: Troponin I High Sens 17 06/13/21 00:40: Troponin I High Sens 20 06/13/21 04:51: WBC 6.3, RBC 4.72, Hgb 15.2 H, Hct 45.0, MCV 95.3, MCH 32.2 H, M CHC 33.8, RDW Std Deviation 48.7 H, RDW Coeff of [place] 13.8, Plt Count 273, MPV 12.1 H, Immature Gran % (Auto) 0.300, Neut % (Auto) 89.6 H, Lymph % (Auto) 7.2 L , [place] % (Auto) 2.4, Eos % (Auto) 0.2, Baso % (Auto) 0.3, Absolute Neuts (auto) 5.6, Absolute Lymphs (auto) 0.45 L, Nucleated RBC % 0 06/13/21 04:51: Sodium 140, Potassium 3.0 L, Chloride 106, Carbon Dioxide 26.0, Anion Gap 8, BUN 7, Creatinine 0.52 L, Estim Creat Clear Calc 36.53, Est GFR (MDRD) Af Amer 148, Est GFR (MDRD) Non-Af 122, BUN/Creatinine Ratio 13.4, Glucose 160 H, Calcium 8.9, Total Bilirubin 0.50, AST 14 L, ALT 23, Alkaline Phosphatase 232 H, Troponin I High Sens 15, Total Protein 7.4, Albumin 3.6, Globulin 3.8, Albumin/Globulin Ratio 0.9 Micro: Microbiology 06/12/21 Unknown Mucosa - Nose Respiratory Panel (PCR) - Final 06/12/21 17:03 Urine, Random Legionella Antigen - Final 06/12/21 17:03 Urine, Random Streptococcus pneumoniae Antigen (M - Final Radiography Diagnostic Testing: Radiology Impression Chest X-Ray 06/12/21 16:30 IMPRESSION: 1. Multilobar pulmonary infiltrates may represent recurrent pneumonia and/or fibrotic lung disease or previous infection. Electronically Signed: Landon Foster MD (Brooks) at 16:45 EST , Chest CTA 06/12/21 17:55 IMPRESSION: No evidence of acute pulmonary emboli to the segmental level. Diffuse bilateral groundglass and reticular opacities consistent with Covid pneumonia. 1.6 cm intermediate density cyst in the left upper renal pole. Consider follow-up renal ultrasound. Electronically Signed: Bebeto Garcia MD at 19:56 EST , Physical Exam Const alert, oriented x3 and no apparent distress HEENT head/scalp atraumatic and moist oral mucous membranes Head and Scalp: normocephalic Eyes PERRL and conjunctivae normal Neck no lymphadenopathy, supple and no JVD Resp Effort and Inspection: tachypneic and labored Auscultation: diminished lung sounds Cardio regular rhythm and no JVD Rate: tachycardic GI normal to inspection, nondistended, normoactive bowel sounds Extremity normal to inspection Skin no rashes or lesions noted Neuro CN's II-XII intact bilaterally Psych affect normal Assessment & Plan Assessment/Plan (1) Respiratory distress: (2) Acute hypokalemia: PLAN: Day 1 Discharge planning: Current plan is for patient to discharge home when medically ready. 1) acute respiratory distress of unclear etiology Currently satting 96% on room air, although patient is still tachypneic. Unclear etiology at this time, could be long COVID as patient was recently diagnosed 1 month ago with Covid and has been recovering since. Imaging does show pulmonary infiltrates, although patient is without any infectious respiratory symptoms, vital signs are stable and CBC does not demonstrate a leukocytosis. Legionella and strep pneumo urinary antigens negative, urine and blood cultures pending, viral respiratory panel negative. Continue Decadron and bronchodilators, ambulatory pulse ox in a.m. 2) hypokalemia Currently 3.0, continue to replace, continue to monitor. 3) incidental renal cysts CT-A chest on admission with noted 1.6 cm intermediate density cyst in the left upper renal pole, will need follow-up renal ultrasound potentially outpatient given acute presentation. 4) CAD status post CABG Continue aspirin, labetalol, valsartan and statin. 6) HTN Continue valsartan and labetalol, as needed hydralazine ordered. 7) hyperlipidemia Continue statin. 8) GERD Continue PPI. DVT prophylaxis - Lovenox Patient seen by Philip Jimenes PA-C, under the supervision of Dr. Loera. Documented by User: Dr. Cricket Loera MD 06/13/21 14:22 Objective Data Lab / Micro Data Result Diagrams: 06/13/21 04:51 06/13/21 04:51 Assessment & Plan Addt'l Comments This patient was seen in conjunction with Philip Jimenes PA-C. I have independently interviewed and examined the patient and reviewed pertinent historical, laboratory, and other data. Please refer to Philip Jimenes PA-C's note for details of this patient's presentation, findings, and recommendations. I have reviewed Philip Jimenes PA-C's note and concur with documented findings. In brief, patient is a 71-year-old lady who was on admission in March 2021 with acute hypoxic respiratory failure secondary to COVID-19 who presented with a week history of progressive shortness of breath. CTA obtained on admission demonstrated Diffuse bilateral groundglass and reticular opacities. Admitted to regular nursing floor for further management Physical Examination: GENERAL: cooperative HEENT: Atraumatic; EYES; Anicteric, Normal Conjunctiva NECK; supple, normal thyroid, RESPIRATORY: Diminished to auscultation CARDIOVASCULAR: Regular S1 S2, GI: soft, normoactive bowel sounds, : No Renal angle tenderness; EXTREMITIES: No edema, no clubbing, MUSCULOSKELETAL: no muscle wasting NEURO: Awake; no lateralizing signs. SKIN: No Rash PSYCH; Flat affect Assessment: 1. Acute on chronic hypoxic respiratory failure 2.? Lung COVID 3. Acute congestive heart failure with preserved ejection fraction 4. Dyslipidemia 5. Essential hypertension 6. GERD CABG 7. Coronary artery disease status post 8. Chronic back pain 9. Hypokalemia Recommendations: 1. I have discussed the results of my overview and impressions with the patient 2. Options for management were reviewed Total time spent by myself and the advanced practice practitioner evaluating patient, reviewing labs, subsequent management decisions, discussion with patient as well as other providers 40 minutes ( 25 of which was spent by myself) Charges/Coding Visit Charges Inpatient E&M: 70601 [facility] Hosp L3
[2021-06-13] MEDS: guaiFENesin 10 ML UDC (200MG/10ML) 20 ML PO (21:30)
[2021-06-14] VITALS (9 sets, daily range): BP systolic 144–150; BP diastolic 79–91; PULSE 84–92; RESP 16–19; TEMP 36.4–36.6; O2SAT 88–94
[2021-06-14] MEDS: 0.9% Saline Lock 10 ML Syringe IV (01:58)
[2021-06-14] MEDS: Ondansetron 4 MG/2 ML Vial IV (01:59)
[2021-06-14] MEDS: Acetaminophen 325 MG Tablet 650 MG PO (01:59)
[2021-06-14] MEDS: guaiFENesin 10 ML UDC (200MG/10ML) 20 ML PO (01:59)
[2021-06-14] MEDS: traMADol 50 MG Tablet 100 MG PO ×2 (05:05→12:10)
[2021-06-14] MEDS: BENZOCAINE/MENTHOL 1 LOZENGE MUCOUS MEM (05:07)
[2021-06-14 06:11] LABS: Anion Gap 10 (5-15); BUN 21 mg/dL (7-18); BUN/Creat Ratio 23.3 RATIO (10-20); Calcium,Total 8.3 mg/dL (8.5-10.1); Chloride 104 mmol/L (98-107); EST Glomerular Filtration Rate 65 mL/min (>60); Est Glom Filt Rate - Afr Amer 79 mL/min (>60); Estimated Creatinine Clearance 40.58 ml/min; Glucose 131 mg/dL (74-106); Potassium 2.8 mmol/L (3.5-5.1); Sodium Level 140 mmol/L (136-145)
[2021-06-14] MEDS: Ipratropium/Albuterol Sulfate 3 ML AMPUL.NEB INHALATION ×2 (07:10→13:41)
[2021-06-14] MEDS: Losartan Potassium 100 MG Tablet PO (08:32)
[2021-06-14] MEDS: Potassium Chloride Oral Tablet 20 MEQ 40 MEQ PO (08:32)
[2021-06-14] MEDS: Pantoprazole Sodium 40 MG Tablet PO (08:32)
[2021-06-14] MEDS: Aspirin E.C. 81 MG Tablet PO (08:32)
[2021-06-14] MEDS: Enoxaparin 30 MG/0.3 ML Syringe SC (08:32)
[2021-06-14] MEDS: Ferrous Sulfate 325 MG Tablet PO (08:32)
[2021-06-14] MEDS: Labetalol 200 MG Tablet PO (08:32)
[2021-06-14] MEDS: tiZANidine HCl 2 MG Tablet PO (08:33)
[2021-06-14] MEDS: Potassium Chloride 10mEq/100mL 10 MEQ/100 ML IV.SOLN. 100 MEQ IV BOLUS ×4 (09:40→13:12)
[2021-06-14] MEDS: dexAMETHasone 4 MG Tablet 6 MG PO (09:43)
[2021-06-14 10:38] LABS: MG Sendout 1.8 mg/dL (1.6-2.3)
--- NOTE | 2021-06-14 10:59 | PCM.DC ---
Discharge Instructions Diet Discharge Diet: Low fat / Low cholesterol Activity Discharge Activity: Return to Normal Activity Dressing / Incision Call your doctor if you observe: Fever of 101 or Higher, Shortness of breath, Dizziness and Chest pain Follow Up Care Test Results: Test results from this visit will be discussed in further detail at your follow-up appointment, if applicable. Discharge Plan Admission Admit Date/Time: 06/12/21 21:03 Primary Reason for Your Visit: Respiratory failure Attending Provider: Cricket Loera Primary Care Provider: Elroy Wellington Instructions Additional Instructions / Restrictions: Your potassium levels were low during admission and you were discharged on potassium supplement for 1 week. You will need repeat BMP by her primary care provider within 1 week to reassess potassium levels. Discharge Orders/Prescriptions Prescriptions: New potassium chloride [Klor-Con M20] 20 mEq Tablet,Er Particles/Crystals 40 meq PO DAILYCM 7 Days Qty: 14 RF: 0 dexamethasone 4 mg Tablet 6 mg PO DAILY 8 Days Qty: 12 RF: 0 albuterol sulfate [ProAir HFA] 90 mcg/actuation HFA aerosol inhaler 2 puff inhalation Q6H PRN (Reason: shortness of breath or wheezing) Qty: 6.7 RF: 0 Continued tramadol 50 mg tablet 100 mg PO TID PRN (Reason: Pain) RF: 0 rosuvastatin 20 mg Tablet 20 mg PO QHS RF: 0 ferrous sulfate 325 mg (65 mg iron) Tablet 325 mg PO BID RF: 0 ferrous sulfate [iron] 325 mg (65 mg iron) tablet 325 mg PO BID Qty: 60 RF: 0 carisoprodol 350 mg tablet 350 mg PO BID RF: 0 labetalol 200 mg tablet 200 mg PO BID RF: 0 valsartan 320 mg tablet 320 mg PO DAILY RF: 0 aspirin 81 mg tablet,delayed release (DR/EC) 81 mg PO DAILY@0800 RF: 0 pantoprazole [Protonix] 40 mg tablet,delayed release (DR/EC) 40 mg PO DAILY RF: 0 Referrals / Follow Up: Roshan Costello MD [STAFF PHYSICIAN] - See Referral Note (as scheduled 08/14/21) Edgar Elmore DO [STAFF PHYSICIAN] - See Referral Note (As previously scheduled 06/22/21) Elroy Wellington MD [Primary Care Provider] - In 1 Week Disposition Disposition (needs filled in before D/C Order can be placed): Home, Self Care
--- NOTE | 2021-06-14 11:09 | PCM.DC.SUM ---
Documented by User: Flor Manley NP, NCA CERTIFIED CONCIERGE-C 06/14/21 11:26 Providers Date of Admission: 06/12/21 Date of Discharge: 06/14/21 Primary Care Physician: Dr. Elroy Wellington MD Reason For Visit: EXERTIONAL DYSPNEA, HYPOXIA, ? RECURRENT COVID PNA Diagnosis Discharge Diagnosis (1) Respiratory distress: Status: Acute Code(s): R06.03 - Acute respiratory distress (2) Acute hypokalemia: Status: Acute Code(s): E87.6 - Hypokalemia Medications at Discharge Home Medications tramadol 100 mg PO TID PRN 11/02/20 rosuvastatin 20 mg PO QHS 12/15/20 ferrous sulfate 325 mg PO BID 02/22/21 ferrous sulfate [iron] 325 mg PO BID #60 tab 04/04/21 aspirin 81 mg PO DAILY@0800 06/12/21 carisoprodol 350 mg PO BID 06/12/21 labetalol 200 mg PO BID 06/12/21 pantoprazole [Protonix] 40 mg PO DAILY 06/12/21 valsartan 320 mg PO DAILY 06/12/21 albuterol sulfate [ProAir HFA] 2 puff INHALATION Q6H PRN #6.7 g 06/14/21 dexamethasone 6 mg PO DAILY 8 Days #12 tab 06/14/21 potassium chloride [Klor-Con M20] 40 meq PO DAILYCM 7 Days #14 tab 06/14/21 Hospital Course Operations None Procedures None Summary of Care Provided Hospital Course: Patient is a 70-year-old female admitted 06/12/21 due to dyspnea, hypoxia. 1. Acute on chronic hypoxic respiratory failure-secondary to prior COVID-19 infection as well as mild acute heart failure with preserved ejection fraction. CTA with diffuse bilateral groundglass opacities consistent with prior Covid. No evidence of superimposed bacterial infection. Previously completed treatment however due to ongoing symptoms and hypoxia, patient placed on Decadron to complete 10-day course. As needed albuterol inhaler. Repeat oxygen testing completed prior to discharge and patient will continue to require submental oxygen at discharge. She is ambulatory in the home. Continue 2 L nasal cannula with exertion. Follow-up with PCP in 1 week. 2. Acute heart failure with preserved ejection fraction-patient received IV Lasix x1. BNP 800 on admission. Recent echocardiogram 02/23/2021 with EF 65%. 3. Hypokalemia-replaced per protocol. Discharged on supplemental potassium for 1 week, patient will need repeat BMP within 1 week by primary care provider. If potassium remains normal, may discontinue supplement. 4. Incidental renal cyst-CTA demonstrated 1.6 cm cyst in the left upper renal pole. Will need follow-up with PCP for recommended renal ultrasound. 5. Recent GI bleed-hemoglobin stable. Has upcoming outpatient follow-up with Dr. Elmore GI. 6. CAD with history of CABG x5-on aspirin, labetalol, losartan, statin. 7. Hypertension-stable, continue valsartan. 8. Hyperlipidemia-continue statin. 9. GERD-continue PPI. Patient seen and examined prior to discharge. Physical assessment as noted below. Patient is stable for discharge with follow up recommendations as noted above. This patient was seen by CINTIA Krishnamurthy under the supervision of Dr. Loera. Time spent examining patient, reviewing data and subsequent management of care: 15 Minutes Physical Exam Const alert, oriented x3 and no apparent distress Orientation / Consciousness: awake, oriented to person, oriented to place and oriented to time HEENT normocephalic and moist oral mucous membranes Eyes PERRL, EOMs intact bilaterally and conjunctivae normal Neck no lymphadenopathy Resp clear to auscultation bilaterally Auscultation: diminished lung sounds Cardio regular rate, regular rhythm and no murmurs Peripheral Pulses: pulses 2+ throughout GI normal to inspection, nondistended, normoactive bowel sounds, non-tender and non-distended Extremity normal to inspection Skin no rashes or lesions noted Lesions: no lesions Rashes: no rashes Trauma: no lacerations or abrasions Neuro CN's II-XII intact bilaterally, no focal motor deficits, no sensory deficits noted and deep tendon reflexes 2+ bilaterally Psych mental status grossly normal and affect normal Weight / BMI Weight Weight: 132 lb 0.91 oz Body Mass Index (BMI) 25.4 ABG / Lab / Microbiology Data Result Diagrams: 06/13/21 04:51 06/14/21 04:34 Laboratory: Laboratory Results - last 24 hr 06/12/21 16:55: Magnesium 1.8 06/14/21 04:34: Sodium 140, Potassium 2.8 L, Chloride 104, Carbon Dioxide 26.0, Anion Gap 10, BUN 21 H, Creatinine 0.90, Estim Creat Clear Calc 40.58, Est GFR (MDRD) Af Amer 79, Est GFR (MDRD) Non-Af 65, BUN/Creatinine Ratio 23.3 H, Glucose 131 H, Calcium 8.3 L Microbiology: Microbiology 06/12/21 17:03 Urine, Clean Catch Urine Culture - Final Mixed Gram Pos & Gram Neg Org 06/12/21 Unknown Mucosa - Nose Respiratory Panel (PCR) - Final 06/12/21 17:03 Urine, Random Legionella Antigen - Final 06/12/21 17:03 Urine, Random Streptococcus pneumoniae Antigen (M - Final D/C Instructions Discharge Diet: Low fat / Low cholesterol Call your doctor if you observe: Fever of 101 or Higher, Shortness of breath, Dizziness and Chest pain Meaningful Use Info Meaningful Use Diagnoses (Choose all that apply): None applicable Discharge Plan Admission Admit Date/Time: 06/12/21 21:03 Primary Reason for Your Visit: Respiratory failure Attending Provider: Cricket Loera Primary Care Provider: Elroy Wellington Instructions Additional Instructions / Restrictions: Your potassium levels were low during admission and you were discharged on potassium supplement for 1 week. You will need repeat BMP by her primary care provider within 1 week to reassess potassium levels. Discharge Orders/Prescriptions Prescriptions: New potassium chloride [Klor-Con M20] 20 mEq Tablet,Er Particles/Crystals 40 meq PO DAILYCM 7 Days Qty: 14 RF: 0 dexamethasone 4 mg Tablet 6 mg PO DAILY 8 Days Qty: 12 RF: 0 albuterol sulfate [ProAir HFA] 90 mcg/actuation HFA aerosol inhaler 2 puff inhalation Q6H PRN (Reason: shortness of breath or wheezing) Qty: 6.7 RF: 0 Continued tramadol 50 mg tablet 100 mg PO TID PRN (Reason: Pain) RF: 0 rosuvastatin 20 mg Tablet 20 mg PO QHS RF: 0 ferrous sulfate 325 mg (65 mg iron) Tablet 325 mg PO BID RF: 0 ferrous sulfate [iron] 325 mg (65 mg iron) tablet 325 mg PO BID Qty: 60 RF: 0 carisoprodol 350 mg tablet 350 mg PO BID RF: 0 labetalol 200 mg tablet 200 mg PO BID RF: 0 valsartan 320 mg tablet 320 mg PO DAILY RF: 0 aspirin 81 mg tablet,delayed release (DR/EC) 81 mg PO DAILY@0800 RF: 0 pantoprazole [Protonix] 40 mg tablet,delayed release (DR/EC) 40 mg PO DAILY RF: 0 Referrals / Follow Up: Roshan Costello MD [STAFF PHYSICIAN] - See Referral Note (as scheduled 08/14/21) Edgar Elmore DO [STAFF PHYSICIAN] - See Referral Note (As previously scheduled 06/22/21) Elroy Wellington MD [Primary Care Provider] - In 1 Week Disposition Disposition (needs filled in before D/C Order can be placed): Home, Self Care Documented by User: Dr. Cricket Loera MD 06/14/21 11:48 Providers Date of Admission: 06/12/21 Reason For Visit: EXERTIONAL DYSPNEA, HYPOXIA, ? RECURRENT COVID PNA Medications at Discharge Home Medications tramadol 100 mg PO TID PRN 11/02/20 rosuvastatin 20 mg PO QHS 12/15/20 ferrous sulfate 325 mg PO BID 02/22/21 ferrous sulfate [iron] 325 mg PO BID #60 tab 04/04/21 aspirin 81 mg PO DAILY@0800 06/12/21 carisoprodol 350 mg PO BID 06/12/21 labetalol 200 mg PO BID 06/12/21 pantoprazole [Protonix] 40 mg PO DAILY 06/12/21 valsartan 320 mg PO DAILY 06/12/21 albuterol sulfate [ProAir HFA] 2 puff INHALATION Q6H PRN #6.7 g 06/14/21 dexamethasone 6 mg PO DAILY 8 Days #12 tab 06/14/21 potassium chloride [Klor-Con M20] 40 meq PO DAILYCM 7 Days #14 tab 06/14/21 Hospital Course Operations None Summary of Care Provided Minutes Spent on Discharge: 40 Hospital Course: This patient was seen in conjunction with CINTIA Krishnamurthy . I have independently interviewed and examined the patient and reviewed pertinent historical, laboratory, and other data. Please refer to Flor Vineet, NCA CERTIFIED CONCIERGE-C note for details of this patient's presentation, findings, and recommendations. I have reviewed Flor Manley NP-C note and concur with documented findings. In brief, patient is a 71-year-old lady who was on admission in March 2021 with acute hypoxic respiratory failure secondary to COVID-19 who presented with a week history of progressive shortness of breath. CTA obtained on admission demonstrated Diffuse bilateral groundglass and reticular opacities. Admitted to regular nursing floor for further management Physical Examination: GENERAL: cooperative HEENT: Atraumatic; EYES; Anicteric, Normal Conjunctiva NECK; supple, normal thyroid, RESPIRATORY: Diminished to auscultation CARDIOVASCULAR: Regular S1 S2, GI: soft, normoactive bowel sounds, : No Renal angle tenderness; EXTREMITIES: No edema, no clubbing, MUSCULOSKELETAL: no muscle wasting NEURO: Awake; no lateralizing signs. SKIN: No Rash PSYCH; Flat affect Assessment: 1. Respiratory insufficiency 2. 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 Acute congestive heart failure with preserved ejection fraction 4. Dyslipidemia 5. Essential hypertension 6. GERD CABG 7. Coronary artery disease status post 8. Chronic back pain 9. Hypokalemia Recommendations: 1. I have discussed the results of my overview and impressions with the patient 2. Options for management were reviewed Total time spent by myself and the advanced practice practitioner evaluating patient, reviewing labs, subsequent management decisions, discussion with patient as well as other providers 40 minutes ( 25 of which was spent by myself) ABG / Lab / Microbiology Data Result Diagrams: 06/13/21 04:51 06/14/21 04:34 Discharge Plan Admission Admit Date/Time: 06/12/21 21:03 Primary Reason for Your Visit: Respiratory failure Attending Provider: Cricket Loera Primary Care Provider: Elroy Wellington Instructions Additional Instructions / Restrictions: Your potassium levels were low during admission and you were discharged on potassium supplement for 1 week. You will need repeat BMP by her primary care provider within 1 week to reassess potassium levels. Discharge Orders/Prescriptions Prescriptions: New potassium chloride [Klor-Con M20] 20 mEq Tablet,Er Particles/Crystals 40 meq PO DAILYCM 7 Days Qty: 14 RF: 0 dexamethasone 4 mg Tablet 6 mg PO DAILY 8 Days Qty: 12 RF: 0 albuterol sulfate [ProAir HFA] 90 mcg/actuation HFA aerosol inhaler 2 puff inhalation Q6H PRN (Reason: shortness of breath or wheezing) Qty: 6.7 RF: 0 Continued tramadol 50 mg tablet 100 mg PO TID PRN (Reason: Pain) RF: 0 rosuvastatin 20 mg Tablet 20 mg PO QHS RF: 0 ferrous sulfate 325 mg (65 mg iron) Tablet 325 mg PO BID RF: 0 ferrous sulfate [iron] 325 mg (65 mg iron) tablet 325 mg PO BID Qty: 60 RF: 0 carisoprodol 350 mg tablet 350 mg PO BID RF: 0 labetalol 200 mg tablet 200 mg PO BID RF: 0 valsartan 320 mg tablet 320 mg PO DAILY RF: 0 aspirin 81 mg tablet,delayed release (DR/EC) 81 mg PO DAILY@0800 RF: 0 pantoprazole [Protonix] 40 mg tablet,delayed release (DR/EC) 40 mg PO DAILY RF: 0 Referrals / Follow Up: Roshan Costello MD [STAFF PHYSICIAN] - See Referral Note (as scheduled 08/14/21) Edgar Elmore DO [STAFF PHYSICIAN] - See Referral Note (As previously scheduled 06/22/21) Elroy Wellington MD [Primary Care Provider] - In 1 Week Disposition Disposition (needs filled in before D/C Order can be placed): Home, Self Care Charges/Coding Visit Charges Inpatient E&M: 43290 Disch Hosp Hospital Course Operations None
--- NOTE | 2021-06-14 11:14 | CASEMGMT ---
Addendum entered by Mary Murguia 06/14/21 11:30: Ambulatory home O2 testing has been completed. Pt qualifies for O2 @ 2l/m w/exertion only. ANG ZHANG to room to talk w/pt. She was made aware of need for Home O2. She states has had it in the past. Provided w/list of local DME companies. She chooses [employer]. Script for O2 obtained from PALMA Ray, and [place] [facility] [place] Jovita @ [employer] notified via e-mail that O2 tank will be given to pt from supply room. Original Note: ANG ZHANG NOTE: Informed by PALMA Ray, that pt may be interested in HHC. ANG ZHANG to room to talk with pt. Pt states she has a treadmill @ home, but is wondering what other things she can do to build her strength @ home. Discussed HHC vs OP therapy. Pt made aware of MCR requirements of being home-bound for HHC. She states she is not home-bound, that she does not use any DME to ambulate, and it is not difficult to get in/out of a vehicle and to go places. Pt states she is interested in OP therapy. She states she does not drive, but would be able to take her. Pt provided w/script for OP PT/OT eval and treat and she was informed she could take it to any OP therapy facility of her choice. She was made aware of several locations in the [place] area. She denies having other home-going needs or concerns. Instructed to ask for ANG ZHANG if anything furhter arises. She voices understanding and thanked ANG ZHANG. Chris TRIMBLE RN, CM
== END 2021-06-14 15:35 | disposition home or self-care (01) | DRG 196 ==
LOC: ED 19:56 → PCU 20:44
PROVIDERS: Physician Assistant; Admitting Provider Family Medicine; Emergency Provider Emergency Medicine; PCP Family Medicine; Visit Provider Internal Medicine
DX: J84.10 Pulmonary fibrosis, unspecified (principal); I50.31 Acute diastolic (congestive) heart failure; J18.9 Pneumonia, unspecified organism; I11.0 Hypertensive heart disease with heart failure; E78.5 Hyperlipidemia, unspecified; E87.6 Hypokalemia; M54.10 Radiculopathy, site unspecified; I16.0 Hypertensive urgency; I25.10 Atherosclerotic heart disease of native coronary artery without angina pectoris; K21.9 Gastro-esophageal reflux disease without esophagitis; I10 Essential (primary) hypertension; U09.9 Post COVID-19 condition, unspecified; Z95.1 Presence of aortocoronary bypass graft; Z79.82 Long term (current) use of aspirin; R09.02 Hypoxemia; N28.1 Cyst of kidney, acquired; M54.50 Low back pain, unspecified; G89.29 Other chronic pain
CPT/HCPCS: 36415; 71046; 71275; 80048; 80053; 81001; 82728; 83605; 83615; 83735; 83880; 84145; 84484; 85025; 85379; 86140; 87040; 87086; 87088; 87449; 87633; 87635; 93005; 94640; 99251; 99285; J7030; J7040; Q9967; A4216; G0463; J1940; J2405; U0003; U0005

== ENCOUNTER 2021-08-14 16:19 | Outpatient (CLI) | payer MEDICARE, SELFPAY ==
--- NOTE | 2021-08-14 16:22 | CT_ITS ---
STUDY: CTA CHEST REASON FOR EXAM: Female, 71 years old. Sternal nonunion -- History of recent Covid pneumonia RADIATION DOSAGE (If Supplied By Facility): CTDIvol = ( 5.40 ) mGy, DLP = ( 165.94 ) mGycm TECHNIQUE: The examination was performed with the intravenous administration of IV 100mL Isovue-300. Post-processing of the angiographic images was performed, with multiplanar reformation and 3D reconstruction. Individualized dose optimization techniques were used for this CT. COMPARISON: None. FINDINGS: Tubes and lines: 1. No life-support noted. CTA: PULMONARY ARTERIES: There is normal configuration and contrast opacification of pulmonary outflow tract, main pulmonary arteries, segmental and intersegmental pulmonary arteries bilaterally without evidence of intraluminal filling defects. AORTIC ARCH: The aortic arch and descending aorta have normal configuration. No evidence of dissection or aneurysmal dilatation. HEART: Cardiac contour is normal. No evidence pericardial effusion. Scattered coronary vascular calcifications are present. Postoperative changes of prior CABG. CT CHEST: LUNGS: [Diffuse interstitial prominence and pleural-parenchymal scar bilaterally particularly in the LEFT midlung. There has been moderate to marked improvement however mild residual interstitial scar noted.. No mass. No consolidation. PLEURAL SPACES: Unremarkable, no effusion or pneumothorax.. MEDIASTINUM AND LYMPH NODES: Unremarkable. No significant adenopathy. BONES: Unremarkable ABDOMEN: Within normal limits. Other: None IMPRESSIONS: 1. No CTA evidence of pulmonary embolism. 2. No CTA evidence of aortic aneurysm or dissection 3. Postop changes of prior CABG. Coronary vascular calcifications are present. 4. Significant improvement of previous atypical pneumonia with mild residual pleural-parenchymal scar and interstitial thickening particularly in LEFT midlung. Electronically Signed: Master Patel MD at 18:13 EDT , CT/CTA Chest W/WO Contrast
[2021-08-14 16:40] LABS: CREATININE FINGERSTICK 0.8 mg/dL (0.55-1.02); EGFR FINGERSTICK > 60.0000 mL/min (>60)
== END 2021-08-14 23:59 | disposition home or self-care (01) ==
LOC: CT 16:20
PROVIDERS: PCP Family Medicine; Referring Provider Internal Medicine Cardiovascular Disease; Visit Provider Internal Medicine Cardiovascular Disease
DX: Z95.1 Presence of aortocoronary bypass graft (principal)
CPT/HCPCS: 71275; Q9967

== ENCOUNTER 2022-04-23 07:34 | Emergency (ER) | payer MEDICARE, SELFPAY ==
[2022-04-23 07:35] VITALS: BP 166/92; PULSE 94; RESP 20; TEMP 36.6; O2SAT 97; BMI 25.4
--- NOTE | 2022-04-23 07:46 | EKG12_ITS ---
Test Reason : SOB Blood Pressure : / mmHG Vent. Rate : 091 BPM Atrial Rate : 091 BPM P-R Int : 148 ms QRS Dur : 096 ms QT Int : 392 ms P-R-T Axes : -14 013 018 degrees QTc Int : 482 ms Normal sinus rhythm Nonspecific ST abnormality Abnormal ECG Confirmed by RENO BROOKS, PALOMA ([id number]), newspaper editor XIAO HURT ([id number]) on 04/24/2022 10:48:36 AM Referred By: Confirmed By:PALOMA BOJORQUEZ MD
--- NOTE | 2022-04-23 07:47 | RAD_ITS ---
STUDY: X-RAY CHEST REASON FOR EXAM: Female, 71 years old. Sob TECHNIQUE: PA and lateral views of the chest. COMPARISON: Comparison is made with prior study dated June 2021. FINDINGS: Since prior examination, there has been improved aeration of both lungs. Residual reticular and groundglass opacities seen in the left lung as well as in the right upper lobe suggestive of chronic scarring. There is no demonstrated pleural abnormality. Sternal cerclage wires and vascular clips are present from a prior sternotomy and coronary artery bypass graft procedure (CABG). Normal mediastinum and lynn. There is prominence of the pulmonary hilar arteries without peripheral pulmonary vascular congestion, suggesting pulmonary hypertension. There is atherosclerotic calcification of the aortic arch with tortuosity. There is demineralization of the osseous structures. Dextroscoliosis of the lumbar spine. Normal visualized ribs, clavicles, and shoulders. There is no demonstrated abnormality of the visualized soft tissue structures of the upper abdomen. RAD/Chest PA and Lateral IMPRESSION: Residual reticular and groundglass opacities in the left lung as well as in the right upper lobe although there has been improvement as compared to prior study suggestive of chronic scarring. Electronically Signed: Milan Pino MD at 8:37 EST ,
--- NOTE | 2022-04-23 07:47 | ED.VIS.DYS ---
HPI History of Present Illness Chief Complaint: Shortness of Breath Narrative Narrative: Patient presents with dyspnea for the past 2-1/2 weeks but worse today. She was diagnosed with influenza a 16 days ago, she has been doing relatively well but her dyspnea continued and now it is getting worse. She denies any pleuritic component. She has no lower extremity edema or calf pain. She has no back pain or tearing sensation. She is denying any, chest pain. She has weakness. She does not feel lightheaded when she stands up. No prior underlying lung disease, she tells me she never smoked. [facility] Medical History Acute respiratory failure with hypoxia Anemia Chronic pain COVID-19 Essential hypertension Facial droop GERD (gastroesophageal reflux disease) History of back pain HLD (hyperlipidemia) Pinched vertebral nerve Postoperative atrial fibrillation (11/10/20) Scoliosis Home Medications tramadol 50 mg tablet 100 mg PO TID PRN Pain 11/02/20 [History Last Taken 12/15/20] rosuvastatin 20 mg tablet 20 mg PO QHS cholesterol 12/15/20 [History Last Taken 12/14/20] aspirin 81 mg tablet,delayed release 81 mg PO DAILY@0800 Check with primary doctor 06/12/21 [History Last Taken Unknown] carisoprodol 350 mg tablet 350 mg PO BID Check with primary doctor 06/12/21 [History Last Taken Unknown] labetalol 200 mg tablet 200 mg PO BID Check with primary doctor 06/12/21 [History Last Taken Unknown] pantoprazole 40 mg tablet,delayed release (Protonix) 40 mg PO DAILY Check with primary doctor 06/12/21 [History Last Taken Unknown] valsartan 320 mg tablet 320 mg PO DAILY Check with primary doctor 06/12/21 [History Last Taken Unknown] albuterol sulfate 90 mcg/actuation aerosol inhaler (ProAir HFA) 2 puff inhalation Q6H PRN shortness of breath or wheezing #6.7 grams 06/14/21 [Rx Last Taken Unknown] chlorthalidone 25 mg tablet 25 mg PO DAILY 08/14/21 [History Last Taken Unknown] potassium chloride 20 mEq tablet,extended release(part/cryst) (Klor-Con M) 20 meq PO DAILY 11/20/21 [History Last Taken Unknown] hydrocodone-homatropine 5 mg-1.5 mg/5 mL (5 mL) oral syrup (Hycodan) 5 ml PO Q6H 3 days #60 mL 04/23/22 [Rx Last Taken Unknown] prednisone 20 mg tablet 40 mg PO DAILY #10 tabs 04/23/22 [Rx Last Taken Unknown] Allergy/AdvReac Type Severity Reaction Status Date / Time levofloxacin Allergy Severe leg pain Verified 04/23/22 07:39 amiodarone Allergy mental Verified 04/23/22 07:39 confusion Penicillins Allergy Unknown Verified 04/23/22 07:39 Sulfa (Sulfonamide Allergy Rash Verified 04/23/22 07:39 Antibiotics) lorazepam [From Ativan] AdvReac I went Verified 04/23/22 07:39 crazy Family History Mother Alcoholism Father Hypertension Brother Diabetes Sister Diabetes Hypertension Sister No problems noted. Son Hypertension Other Kidney disease Surgical History H/O coronary artery bypass surgery (11/08/20) History of appendectomy History of cholecystectomy History of left heart catheterization (11/03/20) Social History household members: spouse pets and animals: Yes (cats) Smoking Status: Never smoker alcohol intake: never substance use type: does not use ROS ROS ED ROS Narrative Past medical history: Reviewed, includes hypertension, hyperlipidemia and prior RI status post bypass surgery Medications: Reviewed Social history: Noncontributory Review of systems: All systems negative except as indicated General: No fever. Some generalized weakness Eyes: No visual changes ENT: No upper airway congestion, normal voice Neck: No neck pain Cardiovascular: No chest pain Respiratory: Dyspnea as in HPI Gastrointestinal: No abdominal pain, nausea vomiting or diarrhea Genitourinary: No dysuria Musculoskeletal: Denies myalgias no difficulty with ambulation Skin: No rash Neurological: No memory loss, confusion or any focal weakness Psych: No recent behavioral changes Hematologic: No easy bleeding or easy bruising EXAM Physical Exam Narrative Exam Narrative: Physical exam General: Patient is relatively comfortable just sitting in bed. She does not appear ill Head: Normocephalic, Atraumatic Eyes: Conjunctiva not pale ENT: Moist mucous membranes Neck: Supple, Nontender, No lymphadenopathy Cardiovascular: Regular rate, Regular rhythm Respiratory: Clear lungs bilaterally she is breathing about 18 a minute she does not appear in significant distress. Abdomen: Soft, Nontender, Nondistended Back: Nontender, Normal Inspection. Negative for: CVA tenderness Extremities: Nontender, No edema, no calf pain. Skin: Normal color, No rash Neurological: Alert, Normal Strength, Normal Sensation Psychological: Normal affect Const Vital Signs: 04/23/22 07:35 04/23/22 08:04 04/23/22 09:36 Temperature 97.9 F Temperature Source Temporal Pulse Rate 94 99 Respiratory Rate 20 H 18 Respiratory Effort Respiratory Depth Respiratory Pattern Blood Pressure 166/92 H Blood Pressure Mean 116 Pulse Ox 97 95 Oxygen Delivery Method Room Air Room Air 04/23/22 09:36 04/23/22 10:10 04/23/22 10:10 Temperature Temperature Source Pulse Rate Respiratory Rate Respiratory Effort Short of Breath Respiratory Depth Normal Respiratory Pattern Normal Blood Pressure Blood Pressure Mean Pulse Ox 93 94 Oxygen Delivery Method Room Air Room Air Room Air 04/23/22 10:12 Temperature Temperature Source Pulse Rate Respiratory Rate Respiratory Effort Respiratory Depth Respiratory Pattern Blood Pressure Blood Pressure Mean Pulse Ox 95 Oxygen Delivery Method Room Air MDM MDM Lab Data Labs: Laboratory Results - last 24 hr 04/23/22 04/23/22 04/23/22 08:00 08:00 08:00 WBC 6.6 RBC 4.04 L Hgb 12.6 Hct 39.7 MCV 98.3 MCH 31.2 MCHC 31.7 L RDW Std Deviation 43.9 RDW Coeff of Douglas 12.2 Plt Count 267 MPV 11.0 Immature Gran % (Auto) 0.800 Neut % (Auto) 65.1 Lymph % (Auto) 15.5 L [place] % (Auto) 8.6 Eos % (Auto) 9.4 H Baso % (Auto) 0.6 Absolute Neuts (auto) 4.3 Absolute Lymphs (auto) 1.02 Nucleated RBC % 0 D-Dimer Quant (PE/DVT) 0.47 Sodium 142 Potassium 3.2 L Chloride 108 H Carbon Dioxide 26.0 Anion Gap 8 BUN 13 Creatinine 0.75 Estim Creat Clear Calc 35.99 Est GFR (MDRD) Af Amer 97 Est GFR (MDRD) Non-Af 80 BUN/Creatinine Ratio 17.3 Glucose 146 H Calcium 8.6 Total Bilirubin 0.20 AST 23 ALT 32 Alkaline Phosphatase 266 H Troponin I High Sens 7 B-Natriuretic Peptide Total Protein 6.7 Albumin 2.7 L Globulin 4.0 Albumin/Globulin Ratio 0.7 L 04/23/22 08:00 WBC RBC Hgb Hct MCV MCH MCHC RDW Std Deviation RDW Coeff of Douglas Plt Count MPV Immature Gran % (Auto) Neut % (Auto) Lymph % (Auto) [place] % (Auto) Eos % (Auto) Baso % (Auto) Absolute Neuts (auto) Absolute Lymphs (auto) Nucleated RBC % D-Dimer Quant (PE/DVT) Sodium Potassium Chloride Carbon Dioxide Anion Gap BUN Creatinine Estim Creat Clear Calc Est GFR (MDRD) Af Amer Est GFR (MDRD) Non-Af BUN/Creatinine Ratio Glucose Calcium Total Bilirubin AST ALT Alkaline Phosphatase Troponin I High Sens B-Natriuretic Peptide 65.7 Total Protein Albumin Globulin Albumin/Globulin Ratio Radiography Diagnostic Testing: Clinical Impression(s) from Imaging Studies Chest X-Ray 04/23/22 07:47 IMPRESSION: Residual reticular and groundglass opacities in the left lung as well as in the right upper lobe although there has been improvement as compared to prior study suggestive of chronic scarring. Electronically Signed: Milan Pino MD at 8:37 EST , X-ray read by me and radiologist as chronic changes. Treatment and Re-Evaluation Narrative: Patient has a normal work-up no evidence of thromboembolic disease. She appears well she likely has bronchitis from her influenza, she is 2-1/2 weeks out from her influenza she has no fever chills or pneumonia I am not worried about a post influenza pneumonia at this time. She appears well. I believe she can be safely discharged she can follow-up with pulmonology in the meantime I will put her on some steroids and antitussives since the cough seems to bother her the most. Discharge Plan Triage Chief Complaint: Shortness of Breath ED Provider: Chadd Recinos Dx/Rx/DC Orders Clinical Impression: Bronchitis, Influenza A, Cough Instructions: ED Bronchitis, No Antibiotic (Adult) Prescriptions: New prednisone 20 mg tablet 40 mg PO DAILY Qty: 10 0RF hydrocodone-homatropine [Hycodan] 5-1.5 mg/5 mL (5 mL) syrup 5 ml PO Q6H 3 Days Qty: 60 0RF No Action chlorthalidone 25 mg tablet 25 mg PO DAILY potassium chloride [Klor-Con M20] 20 mEq tablet,ER particles/crystals 20 meq PO DAILY tramadol 50 mg tablet 100 mg PO TID PRN (Reason: Pain) rosuvastatin 20 mg Tablet 20 mg PO QHS carisoprodol 350 mg tablet 350 mg PO BID Label Comments: TAKE 1 TABLET BY MOUTH TWICE A DAY labetalol 200 mg tablet 200 mg PO BID valsartan 320 mg tablet 320 mg PO DAILY Label Comments: TAKE 1 TABLET BY MOUTH EVERY DAY aspirin 81 mg tablet,delayed release (DR/EC) 81 mg PO DAILY@0800 pantoprazole [Protonix] 40 mg tablet,delayed release (DR/EC) 40 mg PO DAILY albuterol sulfate [ProAir HFA] 90 mcg/actuation HFA aerosol inhaler 2 puff inhalation Q6H PRN (Reason: shortness of breath or wheezing) Qty: 6.7 0RF Primary Care Provider: Elroy Wellington Referrals: Bar Rojas MD [Med Staff - Active Staff] - 3-5 Days Elroy Wellington MD [Primary Care Provider] - Disposition Disposition: Home, Self Care
[2022-04-23 08:04] VITALS: O2SAT 95
[2022-04-23 08:07] LABS: Absolute Lymphocyte Count 1.02 X10^3/uL (0.83-4.51); Absolute Neutrophil Count 4.3 X10^3/uL (2.0-7.7); Basophil# 0.04 X10^3/uL; Basophil% 0.6 % (0-1); Eosinophil# 0.62 X10^3/uL; Eosinophils% 9.4 % (0-5); Hematocrit 39.7 % (37-47); Hemoglobin 12.6 g/dL (12.0-15.0); Lymphocyte # 1.02 X10^3/ul (0.83-4.51); Lymphocyte % 15.5 % (19-41); Mean Corp Hgb Conc 31.7 g/dL (32-36); Mean Corpuscular Hgb 31.2 pg (27.0-32.0); Mean Corpuscular Volume 98.3 fL (81-99); Monocyte# 0.57 X10^3/uL; Monocyte% 8.6 % (0-10); NRBC Flagged by Analyzer 0 % (0-5); Neutrophil % 65.1 % (47-70); Platelet Count 267 K/mm3 (150-450); RBC Distribution Width CV 12.2 % (11.6-14.6); RBC Distribution Width SD 43.9 fl (35.1-43.9); Red Blood Count 4.04 M/mm3 (4.2-5.4); White Blood Count 6.6 K/mm3 (4.4-11.0)
[2022-04-23 08:28] LABS: ALB/GLOB Ratio 0.7 RATIO (0.9-2.4); AST(SGOT) 23 U/L (15-37); Alanine Aminotransfer ALT/SGPT 32 U/L (13-56); Albumin, Serum 2.7 g/dL (3.2-5.0); Alkaline Phosphatase 266 U/L (45-117); Anion Gap 8 (5-15); BUN 13 mg/dL (7-18); BUN/Creat Ratio 17.3 RATIO (10-20); Calcium,Total 8.6 mg/dL (8.5-10.1); Chloride 108 mmol/L (98-107); Creatinine, Serum 0.75 mg/dL (0.55-1.02); EST Glomerular Filtration Rate 80 mL/min (>60); Est Glom Filt Rate - Afr Amer 97 mL/min (>60); Estimated Creatinine Clearance 35.99 ml/min; Glucose 146 mg/dL (74-106); Potassium 3.2 mmol/L (3.5-5.1); Protein, Total 6.7 g/dL (6.4-8.2); Sodium Level 142 mmol/L (136-145); Troponin-I HS 7 pg/mL (3.0-54.0)
[2022-04-23 08:40] LABS: D-Dimer Quantitative (DVT/PE) 0.47 FEU/ug/m (0.27-0.49)
[2022-04-23 09:30] LABS: BNP,B-Type NATRIURETIC PEPTIDE 65.7 pg/mL (0-100)
[2022-04-23] MEDS: MethylPREDNISolone 125 MG/2 ML Vial IV (09:30)
[2022-04-23] MEDS: Ipratropium/Albuterol Sulfate 3 ML AMPUL.NEB INHALATION (09:34)
[2022-04-23 09:36] VITALS: PULSE 99; RESP 18; O2SAT 93
[2022-04-23 10:10] VITALS: O2SAT 92; O2SAT 94
[2022-04-23 10:12] VITALS: O2SAT 95
[2022-04-23 11:07] VITALS: BP 106/78; PULSE 78; RESP 16; O2SAT 95
== END 2022-04-23 11:08 | disposition home or self-care (01) ==
PROVIDERS: Emergency Provider Emergency Medicine; PCP Family Medicine; Visit Provider Emergency Medicine
DX: J40 Bronchitis, not specified as acute or chronic (principal); J10.1 Influenza due to other identified influenza virus with other respiratory manifestations; Z86.16 Personal history of COVID-19; Z95.1 Presence of aortocoronary bypass graft
CPT/HCPCS: 71046; 80053; 83880; 84484; 85025; 85379; 93005; 94640; 96374; 99283; A4216

== ENCOUNTER → 2022-06-12 | Outpatient (CLI) | payer MEDICARE, SELFPAY ==
--- NOTE | 2022-06-12 10:46 | ECHOD_ITS ---
Reason For Study: s/p cabg Procedure This was a 2D Doppler, Color Flow transthoracic echocardiogram. Exam performed in department. Left Ventricle Normal LV size. Left ventricular systolic function is normal. The estimated ejection fraction is 65 %. Stage 1 diastolic dysfunction. No regional wall motion abnormalities noted. Right Ventricle Normal RV size. Normal systolic function. Atria Normal left atrium. Normal right atrium. Mitral Valve Mild focal mitral valve calcification, bileaflet. Mild (1+) eccentric mitral valve insufficiency. Tricuspid Valve Normal tricuspid valve. Mild to moderate (1-2+) tricuspid valve insufficiency. Pulmonary artery systolic pressure is 38 mmHg. Aortic Valve Trisinus/trileaflet aortic valve. Mild focal aortic valve calcification. Pulmonic Valve Normal pulmonic valve. Great Vessels Normal aortic root. The pulmonary artery is normal size. Normal inferior vena cava. Pericardium/Pleural No pericardial effusion. MMode/2D Measurements & Calculations LVIDd: 4.0 cm IVSd: 0.89 cm LAV(MOD-sp4): 62.3 ml LVIDs: 3.0 cm LVPWd: 1.1 cm RVDd: 3.4 cm FS: 25.4 % LVAd ap4: 27.6 cm2 SV(MOD-sp4): 42.5 ml SV(sp4-el): 47.1 ml LVLd ap4: 8.0 cm EDV(MOD-sp4): 76.6 ml EDV(sp4-el): 80.6 ml LVAs ap4: 15.8 cm2 LVLs ap4: 6.3 cm ESV(MOD-sp4): 34.0 ml ESV(sp4-el): 33.5 ml EF(MOD-sp4): 55.6 % EF(sp4-el): 58.4 % LA A4 area: 19.9 cm2 LA dimension(2D): 5.0 cm RA A4 area: 9.7 cm2 Time Measurements MV dec time: 0.14 sec Doppler Measurements & Calculations MV E max wu: 66.6 cm/sec Lat Peak E' Wu: 12.5 cm/sec Med Peak E' Wu: 6.0 cm/sec MV A max wu: 71.4 cm/sec E/E' lat: 5.3 E/E' med: 11.0 MV E/A: 0.93 MV V2 max: 92.0 cm/sec Ao V2 max: 143.3 cm/sec MV max P.4 mmHg MV dec slope: 487.9 cm/sec2 Ao max P.2 mmHg MV V2 mean: 52.0 cm/sec Ao V2 mean: 104.2 cm/sec MV mean P.2 mmHg Ao mean P.9 mmHg MV V2 VTI: 36.9 cm Ao V2 VTI: 35.8 cm AV (velocity ratio): 0.67 LV V1 max: 106.6 cm/sec MR max wu: 449.9 cm/sec PA V2 max: 122.4 cm/sec LV V1 max P.6 mmHg MR max P.0 mmHg PA V2 mean: 84.9 cm/sec LV V1 mean P.5 mmHg LV V1 mean: 73.7 cm/sec LV V1 VTI: 24.0 cm TR max wu: 291.3 cm/sec TR max P.0 mmHg ECHO/Echo Complete Interpretation Summary Normal LV size. Left ventricular systolic function is normal. The estimated ejection fraction is 65 %. Mild (1+) eccentric mitral valve insufficiency. Mild to moderate (1-2+) tricuspid valve insufficiency. Stage 1 diastolic dysfunction. Ordering Physician: Roshan Cotsello Referring Physician: GORDON WEISS Performed By: Azeb Sal RCS
== END | disposition home or self-care (01) ==
PROVIDERS: PCP Family Medicine; Visit Provider Internal Medicine Cardiovascular Disease
DX: Z01.818 Encounter for other preprocedural examination (principal); I25.10 Atherosclerotic heart disease of native coronary artery without angina pectoris; Z95.5 Presence of coronary angioplasty implant and graft
CPT/HCPCS: 93306

== ENCOUNTER 2022-12-16 03:20 | Emergency (ER) | payer MEDICARE, SELFPAY ==
[2022-12-16 03:23] VITALS: BP 143/83; PULSE 93; RESP 18; TEMP 36.7; O2SAT 94; BMI 30.2
--- NOTE | 2022-12-16 03:29 | CT_ITS ---
EXAM: CT Abdomen And Pelvis W/O Contrast Injection HISTORY: Kidney Stone TECHNIQUE: Routine protocol CT abdomen and pelvis. IV Contrast: None.. Oral contrast: None. RADIATION DOSAGE (If Supplied By Facility): CTDIvol = ( 6.50 ) mGy, DLP = ( 295.52 ) mGycm Individualized dose optimization techniques were used for this CT. COMPARISON: CT chest 08/14/2021. LIMITATIONS: None. FINDINGS: LOWER CHEST: Minimal dependent atelectasis. Calcified granuloma right lower lobe. Coronary artery calcifications. Sternal wires. LIVER: Grossly unremarkable. GALLBLADDER AND BILIARY TREE: Gallbladder not identified presumably surgically absent. The common bile duct is markedly dilated, 23 mm near the pancreatic head, and the intrahepatic ducts are markedly dilated. Prior CT chest included the intrahepatic portion, appears increased compared to the prior. PANCREAS: Grossly unremarkable. SPLEEN: Multiple small calcifications previous granulomatous process. ADRENAL GLANDS: Grossly unremarkable. KIDNEYS AND URETERS: No calculi demonstrated. No hydronephrosis. A few cysts in the kidneys, largest in the right kidney 5 cm likely with minimal peripheral calcification. 1.6 cm exophytic structure at the upper pole right kidney lobulation versus mass or complex cyst is not completely characterized. PERITONEUM: No free air. No free fluid. BOWEL: Scattered diverticula throughout the colon No bowel obstruction. APPENDIX: Not identified. VESSELS: Abdominal aorta is normal caliber. REPRODUCTIVE ORGANS: Grossly unremarkable URINARY BLADDER: Minimally distended. ABDOMINAL WALL: Unremarkable. BONES: Degenerative changes lumbar spine with anterolisthesis at L4-[address]/Abdomen/Pelvis without Cont IMPRESSION: 1. Marked intra and extrahepatic biliary dilatation. Choledocholithiasis or other obstructing process not excluded. Cholecystectomy. 2. No urolithiasis or hydronephrosis. 3. Right renal lesion 1.6 cm exophytic at the upper pole mass versus lobulation. MRI recommended. Other renal lesions consistent with cysts. 4. Colonic diverticulosis without evidence of acute diverticulitis. Electronically Signed: Tonya Mathew MD at 4:22 EDT ,
--- NOTE | 2022-12-16 03:32 | EX.ED.DYSGE1 ---
HPI History of Present Illness Chief Complaint: Complaint Informant: patient and spouse/S.O. Narrative Narrative: Waxing and waning back pain dysuria for little over a week. She called the PCP office she is placed on Cipro. No urine testing was performed. She states 7-day course after 5 days started having blisters in her mouth therefore stopped it. Still has symptoms. No fevers. Is dry heaving at times. No current nausea. Took her tramadol for which she takes for back pain shortly prior to arrival. Symptoms more controlled at this time. Denies history of kidney stones. Reports coronary bypass 2 years ago. Denies any cardiomyopathy. She reports a kidney infection in the past. Prior similar symptoms: Yes PFSH [facility] Medical History Acute respiratory failure with hypoxia Anemia Atherosclerosis of [place] coronary artery of [place] heart without angina pectoris Chronic pain COVID-19 Dyspnea Essential hypertension Facial droop GERD (gastroesophageal reflux disease) History of back pain HLD (hyperlipidemia) Pinched vertebral nerve Postoperative atrial fibrillation (11/10/20) Preop cardiovascular exam Scoliosis Home Medications rosuvastatin 20 mg tablet 20 mg PO QHS cholesterol 12/15/20 [History Last Taken 12/14/20] aspirin 81 mg tablet,delayed release 81 mg PO DAILY@0800 Check with primary doctor 06/12/21 [History Last Taken Unknown] labetalol 200 mg tablet 200 mg PO BID Check with primary doctor 06/12/21 [History Last Taken Unknown] pantoprazole 40 mg tablet,delayed release (Protonix) 40 mg PO DAILY Check with primary doctor 06/12/21 [History Last Taken Unknown] valsartan 320 mg tablet 320 mg PO DAILY Check with primary doctor 06/12/21 [History Last Taken Unknown] chlorthalidone 25 mg tablet 25 mg PO DAILY 08/14/21 [History Last Taken Unknown] potassium chloride 20 mEq tablet,extended release(part/cryst) (Klor-Con M) 20 meq PO DAILY 11/20/21 [History Last Taken Unknown] cefuroxime axetil 500 mg tablet 500 mg PO BID #14 tabs 12/16/22 [Rx Last Taken Unknown] Allergy/AdvReac Type Severity Reaction Status Date / Time levofloxacin Allergy Severe leg pain Verified 12/16/22 03:22 amiodarone Allergy mental Verified 12/16/22 03:22 confusion Penicillins Allergy Unknown Verified 12/16/22 03:22 Sulfa (Sulfonamide Allergy Rash Verified 12/16/22 03:22 Antibiotics) ciprofloxacin AdvReac Rash Verified 12/16/22 03:22 lorazepam [From Ativan] AdvReac I went Verified 12/16/22 03:22 crazy Family History Mother Alcoholism Father Hypertension Brother Diabetes Sister Diabetes Hypertension Sister No problems noted. Son Hypertension Other Kidney disease Surgical History H/O coronary artery bypass surgery (11/08/20) History of appendectomy History of cholecystectomy History of left heart catheterization (11/03/20) Social History household members: spouse pets and animals: Yes (cats) Smoking Status: Never smoker alcohol intake: never substance use type: does not use caffeine: Yes Type: carbonated beverages ROS ROS ED Constitutional Constitutional ED: Denies chills, fever(s) or sweats Eyes Eyes: Denies change in vision ENT ENT ED: Denies dysphagia or sore throat Cardiovascular Cardiovascular: Denies chest pain, leg edema, palpitations or racing heartbeat Respiratory/Chest Respiratory/Chest: Denies cough, dyspnea or dyspnea on exertion Gastrointestinal Gastrointestinal: Denies abdominal pain, diarrhea, nausea or vomiting Genitourinary Genitourinary ED: Reports dysuria; Denies hematuria or urinary frequency Musculoskeletal Musculoskeletal: Reports back pain; Denies extremity pain or neck pain Integumentary Denies rash or wounds Neurologic Neurologic: Denies headache(s), paresthesias or weakness EXAM Physical Exam Const Vital Signs: 12/16/22 03:23 Temperature 98.1 F Temperature Source Oral Pulse Rate 93 Respiratory Rate 18 Blood Pressure 143/83 H Blood Pressure Mean 103 Pulse Ox 94 Oxygen Delivery Method Room Air Positive well nourished and well developed Constitutional Narrative: Nontoxic General Appearance ED: well developed and NAD HEENT HEENT Narrative: Mild dry mucosal membranes normocephalic and atraumatic Eyes PERRL, EOMs intact bilaterally and conjunctivae normal General Eye ED: Yes normal appearance of both eyes Neck no lymphadenopathy and supple General: Negative for tenderness Chest Wall Chest: Negative for tenderness Resp normal respiratory effort and normal air movement Effort and Inspection: symmetric chest movement; Negative for respiratory distress Cardio regular rate, regular rhythm and no murmurs Peripheral Pulses: pulses 2+ throughout GI normal to inspection, nondistended, normoactive bowel sounds and non-tender Palpation: Negative for guarding or rebound tenderness present Back/Spine no thoracic nor lumbar tenderness Back/Spine Narrative: Mild tender left CVA Extremity normal to inspection General Extremety ED: Negative for edema or tenderness General Extremity: Negative for edema Neuro oriented x3 and no sensory deficits noted Sensorium / Orientation: awake and alert Skin no rashes or lesions noted and no wounds MDM MDM MDM Narrative Medical decision making narrative: Interventions / MDM: Differential diagnosis: Pyelonephritis, UTI Diagnosis considered but do not suspect: Kidney stones however negative CT. Colitis, negative CT. My EKG interpretation: N/A Imaging independently reviewed and interpreted by myself: CT abdomen pelvis: No kidney stones. Right renal cyst. Marked dilatation of common bile duct and hepatobiliary dilatation. This also read by radiology. External documents reviewed: N/A Test considered but not ordered:N/A ED course: Patient vital stable declines any medication at this time. Mild dry mucosal membranes. Fluids ordered. Renal stone protocol initiated due to back pain with dysuria. Urine findings slight infection urine culture sent [facility] white 5.5. Cr 1.45 of 0.7 this past April. She is given a liter of fluids. CT scan negative for kidney stones. There is marked dilatation of common bile duct with 23 mm per radiology read. They compared this to CT chest recently had concerns this is potentially new. However in records back in [address] abdomen pelvis had dilatation of common bile duct of 22 mm. I did add lipase and liver enzymes which were normal. She has no abdominal pain. This is likely chronic in nature. I discussed with the patient she does not follow GI and does not recall being told of this dilatation. She is given follow-up with GI for outpatient evaluation and management as needed. She reports she does have follow-up with her PCP in 2 days for which she will keep reevaluate her symptoms and likely to recheck her creatinine. Should continue oral fluids at home. She was given Rocephin IV for her UTI, prescription for cefuroxime. Return precautions. All questions answered. Re-evaluation: stable Disposition discussed with patient/family/significant other: Patient and significant other Case discussed with consulting clinician: N/A This note was generated with [employer] dictation software. It may contain incorrect words, spelling, and punctuation that were not noted in checking the note before signing. Lab Data Attestation: I reviewed the patient's lab results. Labs: Laboratory Results - last 24 hr 12/16/22 12/16/22 03:22 03:40 WBC 5.5 RBC 3.57 L Hgb 11.4 L Hct 36.5 L MCV 102.2 H MCH 31.9 MCHC 31.2 L RDW Std Deviation 46.8 H RDW Coeff of [place] 12.4 Plt Count 194 MPV 11.7 Immature Gran % (Auto) 0.400 Neut % (Auto) 60.7 Lymph % (Auto) 22.6 [place] % (Auto) 9.7 Eos % (Auto) 6.2 H Baso % (Auto) 0.4 Absolute Neuts (auto) 3.3 Absolute Lymphs (auto) 1.23 Nucleated RBC % 0 Sodium 139 Potassium 4.2 Chloride 105 Carbon Dioxide 25.0 Anion Gap 9 BUN 27 H Creatinine 1.45 H Estim Creat Clear Calc 24.45 Est GFR (MDRD) Af Amer 45 L Est GFR (MDRD) Non-Af 38 L BUN/Creatinine Ratio 18.6 Glucose 115 H Calcium 8.9 Total Bilirubin 0.50 Direct Bilirubin 0.14 AST 21 ALT 35 Alkaline Phosphatase 192 H Total Protein 6.6 Albumin 3.9 Globulin 2.7 Lipase 11 L Urine Color Yellow Urine Clarity Clear Urine pH 5.0 Ur Specific [place] 1.025 Urine Protein 30 H Urine Glucose (UA) Normal Urine Ketones Negative Urine Occult Blood Negative Urine Nitrite Negative Urine Bilirubin 3 H Urine Urobilinogen Normal Ur Leukocyte Esterase 25 H Urine RBC 0 SEEN Urine WBC 0-5 SEEN Ur Squamous Epith Cells 0 SEEN Urine Bacteria 1+ Hyaline Casts 0-5 SEEN Urine Mucus 1+ Radiography Diagnostic Testing: Clinical Impression(s) from Imaging Studies Abdomen/Pelvis CT 12/16/22 03:29 IMPRESSION: 1. Marked intra and extrahepatic biliary dilatation. Choledocholithiasis or other obstructing process not excluded. Cholecystectomy. 2. No urolithiasis or hydronephrosis. 3. Right renal lesion 1.6 cm exophytic at the upper pole mass versus lobulation. MRI recommended. Other renal lesions consistent with cysts. 4. Colonic diverticulosis without evidence of acute diverticulitis. Electronically Signed: Tonya Mathew MD at 4:22 EDT , Discharge Plan Triage Chief Complaint: Complaint ED Provider: Eduardo Villareal Dx/Rx/DC Orders Clinical Impression: Common bile duct dilatation, Complicated UTI (urinary tract infection), Acute kidney insufficiency, Cyst of right kidney Instructions: Urinary Tract Infections in Women, ED Renal Insufficiency Prescriptions: New cefuroxime axetil 500 mg tablet 500 mg PO BID Qty: 14 0RF No Action chlorthalidone 25 mg tablet 25 mg PO DAILY potassium chloride [Klor-Con M20] 20 mEq tablet,ER particles/crystals 20 meq PO DAILY rosuvastatin 20 mg Tablet 20 mg PO QHS labetalol 200 mg tablet 200 mg PO BID valsartan 320 mg tablet 320 mg PO DAILY Patient Comments: TAKE 1 TABLET BY MOUTH EVERY DAY aspirin 81 mg tablet,delayed release (DR/EC) 81 mg PO DAILY@0800 pantoprazole [Protonix] 40 mg tablet,delayed release (DR/EC) 40 mg PO DAILY Primary Care Provider: Elroy Wellington Referrals: Edgar Elmore DO [Med Staff - Active Staff] - 1-2 Weeks Elroy Wellington MD [Primary Care Provider] - Keep Jina appointment Activity Restrictions/Additional Instructions: Your work-up has findings ofurinary tract infection urine culture sent. Your white count is 5.5. Your creatinine was 1.45, this was 0.7 back in April. You were given IV antibiotic and IV fluids in the ED. Take oral antibiotic and finish as prescribed. Continue oral fluids for hydration. Keep your follow-up with your doctor in 2 days for reevaluation and recheck labs. Your CT scan negative for any kidney stones. Incidental right renal cysts up to 5 cm in size. Also noted marked dilation of the common bile duct 23 mm per radiology. However back in [address] scan with common bile duct similar dilatation of 22 mm per radiology. This not likely the cause of your symptoms. Follow-up with GI Dr. Elmore for outpatient evaluation. Return to the ED for reevaluation of any worsening or recurrent symptoms. Disposition Disposition: Home, Self Care
[2022-12-16 03:45] LABS: Red Blood Cells-Urine 0 SEEN /hpf (0-5); Squamous Epithelial Cells - UA 0 SEEN /hpf (5-10)
[2022-12-16 03:47] LABS: Absolute Lymphocyte Count 1.23 X10^3/uL (0.83-4.51); Absolute Neutrophil Count 3.3 X10^3/uL (2.0-7.7); Basophil# 0.02 X10^3/uL; Basophil% 0.4 % (0-1); Eosinophil# 0.34 X10^3/uL; Eosinophils% 6.2 % (0-5); Hematocrit 36.5 % (37-47); Hemoglobin 11.4 g/dL (12.0-15.0); Lymphocyte # 1.23 X10^3/ul (0.83-4.51); Lymphocyte % 22.6 % (19-41); Mean Corp Hgb Conc 31.2 g/dL (32-36); Mean Corpuscular Hgb 31.9 pg (27.0-32.0); Mean Corpuscular Volume 102.2 fL (81-99); Mean Platelet Vol. 11.7 fl (6.2-12.0); Monocyte# 0.53 X10^3/uL; Monocyte% 9.7 % (0-10); NRBC Flagged by Analyzer 0 % (0-5); Neutrophil # 3.31 X10^3/uL (2.7-7.7); Neutrophil % 60.7 % (47-70); Platelet Count 194 K/mm3 (150-450); RBC Distribution Width CV 12.4 % (11.6-14.6); RBC Distribution Width SD 46.8 fl (35.1-43.9); Red Blood Count 3.57 M/mm3 (4.2-5.4); White Blood Count 5.5 K/mm3 (4.4-11.0)
[2022-12-16 03:50] LABS: Glucose, Dipstick Normal (Normal); Ketone-Dipstick Negative (Negative); Leukocyte Esterase-Dipstick 25 /ul (Negative); Nitrite-Dipstick Negative (Negative); Occult Blood-Urine Negative /ul (Negative); Protein-Dipstick 30 mg/dl (Negative); Specific Gravity, Urine 1.025 (1.002-1.030); Urine Urobilinogen Normal (Normal)
[2022-12-16 03:57] LABS: Color, Urine Yellow (Yellow); Urine Bilirubin Dipstick 3 mg/dL (Negative); Urine Clarity Clear (Clear)
[2022-12-16 03:58] LABS: Bacteria 1+ /hpf (None Seen); Hyaline Cast 0-5 SEEN /lpf (0-5); Mucous, Urine 1+ /hpf (<or=2+); White Blood Cells 0-5 SEEN /hpf (0-5)
[2022-12-16 04:01] LABS: Anion Gap 9 (5-15); BUN 27 mg/dL (7-18); BUN/Creat Ratio 18.6 RATIO (10-20); Calcium,Total 8.9 mg/dL (8.5-10.1); Chloride 105 mmol/L (98-107); Creatinine, Serum 1.45 mg/dL (0.55-1.02); EST Glomerular Filtration Rate 38 mL/min (>60); Est Glom Filt Rate - Afr Amer 45 mL/min (>60); Estimated Creatinine Clearance 24.45 ml/min; Glucose 115 mg/dL (74-106); Potassium 4.2 mmol/L (3.5-5.1); Sodium Level 139 mmol/L (136-145)
[2022-12-16] MEDS: Ceftriaxone 1 GM/50 ML BAG IV (04:15)
[2022-12-16 04:57] LABS: AST(SGOT) 21 U/L (15-37); Alanine Aminotransfer ALT/SGPT 35 U/L (13-56); Albumin, Serum 3.9 g/dL (3.2-5.0); Alkaline Phosphatase 192 U/L (45-117); Bilirubin, Direct 0.14 mg/dL (0.00-0.30); Globulin 2.7 g/dL (2.2-4.2); Lipase 11 U/L (13-75); Protein, Total 6.6 g/dL (6.4-8.2)
== END 2022-12-16 05:21 | disposition home or self-care (01) ==
PROVIDERS: Emergency Provider Emergency Medicine; PCP Family Medicine; Visit Provider Emergency Medicine
DX: K83.8 Other specified diseases of biliary tract (principal); N39.0 Urinary tract infection, site not specified; I25.10 Atherosclerotic heart disease of native coronary artery without angina pectoris; I10 Essential (primary) hypertension; E78.5 Hyperlipidemia, unspecified; N28.1 Cyst of kidney, acquired; R30.0 Dysuria
CPT/HCPCS: 74176; 80048; 80076; 81001; 83690; 85025; 87086; 87088; 96365; 99283; J7040; J7050; A4216

== ENCOUNTER 2023-07-17 12:31 | Emergency (ER) | payer MEDICARE, SELFPAY ==
[2023-07-17] VITALS (25 sets, daily range): BP systolic 101–124; BP diastolic 47–91; PULSE 59–88; RESP 7–47; TEMP 36.3–36.4; O2SAT 89–96; BMI 27.4
--- NOTE | 2023-07-17 13:52 | EDS_ITS ---
HPI History of Present Illness Chief Complaint: Chest Pain Informant: patient Onset/Context/Timing Onset: Days (3) Activity at onset: sudden Timing: Intermittent and Lasts (1 to 2 minutes) Quality: Positive for Pressure and Sharp Location: Left Chest Worsened By: Nothing Relieved By: Nothing Associated Symptoms: Positive for Diaphoresis, Cough and Lightheadedness; Negative for Nausea, Vomiting, Dyspnea, Fever, Acid Reflux or Palpitations Narrative Narrative: Patient presents with chest pain that has been intermittent over the last 3 days. Patient states that it lasts 1 to 2 minutes when it comes on. Patient describes the pain as sharp and pressure. Patient states it is over the left lower chest. Patient states nothing makes it better and nothing makes it worse. Patient admits to some diaphoresis. Patient also admits to mild cough. Patient states she feels lightheaded at times. Patient denies any nausea or vomiting. Patient denies any palpitations or shortness of breath. Patient denies any fevers or chills. CVD Risk Factors: Positive for Hypertension and Hypercholesterolemia; Negative for Diabetes, Family History 1' </=55 or Smoking PE Risk Factors: Negative for Recent Travel/Surgery, Recent Immobilization, Prior DVT or PE, Cancer or OCP + Smoking + >/=35 PFSH PFSH Medical History Acute respiratory failure with hypoxia Anemia Atherosclerosis of [place] coronary artery of [place] heart without angina pectoris Chronic pain COVID-19 Dyspnea Essential hypertension Facial droop GERD (gastroesophageal reflux disease) History of back pain HLD (hyperlipidemia) Pinched vertebral nerve Postoperative atrial fibrillation (11/10/20) Preop cardiovascular exam Scoliosis Home Medications rosuvastatin 20 mg tablet 20 mg PO QHS cholesterol 12/15/20 [History Last Taken 07/16/23] aspirin 81 mg tablet,delayed release 81 mg PO DAILY@0800 Check with primary doctor 06/12/21 [History Last Taken 07/17/23] labetalol 200 mg tablet 200 mg PO BID Check with primary doctor 06/12/21 [History Last Taken 07/17/23] pantoprazole 40 mg tablet,delayed release (Protonix) 40 mg PO DAILY Check with primary doctor 06/12/21 [History Last Taken 07/17/23] valsartan 320 mg tablet 320 mg PO DAILY Check with primary doctor 06/12/21 [History Last Taken 07/17/23] chlorthalidone 25 mg tablet 25 mg PO DAILY 08/14/21 [History Last Taken 07/17/23] potassium chloride 20 mEq tablet,extended release(part/cryst) (Klor-Con M) 20 meq PO DAILY 11/20/21 [History Last Taken 07/17/23] tramadol 50 mg tablet 50 mg PO DAILY PRN pain 07/17/23 [History Last Taken 07/17/23] Allergy/AdvReac Type Severity Reaction Status Date / Time levofloxacin Allergy Severe leg pain Verified 07/17/23 12:33 amiodarone Allergy mental Verified 07/17/23 12:33 confusion Penicillins Allergy Unknown Verified 07/17/23 12:33 Sulfa (Sulfonamide Allergy Rash Verified 07/17/23 12:33 Antibiotics) ciprofloxacin AdvReac Rash Verified 07/17/23 12:33 lorazepam [From Ativan] AdvReac I went Verified 07/17/23 12:33 crazy Family History Mother Alcoholism Father Hypertension Brother Diabetes Sister Diabetes Hypertension Sister No problems noted. Son Hypertension Other Kidney disease Surgical History H/O coronary artery bypass surgery (11/08/20) History of appendectomy History of cholecystectomy History of left heart catheterization (11/03/20) Social History household members: spouse pets and animals: Yes (cats) Smoking Status: Never smoker alcohol intake: never substance use type: does not use caffeine: Yes Type: carbonated beverages ROS ROS ED Constitutional Constitutional ED: Denies chills or fever(s) Eyes Eyes: Denies blurry vision or change in vision ENT ENT ED: Denies rhinorrhea or sore throat Cardiovascular Cardiovascular: Reports chest pain; Denies palpitations Respiratory/Chest Respiratory/Chest: Reports cough and dyspnea Gastrointestinal Gastrointestinal: Denies nausea or vomiting Genitourinary Genitourinary ED: Denies dysuria or hematuria Musculoskeletal Musculoskeletal: Reports back pain and neck pain Integumentary Denies abscess or rash Neurologic Neurologic: Reports headache(s); Denies weakness Allergic/Immunologic Allergic/Immunologic ED: Denies mouth swelling or urticaria EXAM Physical Exam Const Vital Signs: 07/17/23 12:33 07/17/23 13:25 07/17/23 13:27 Temperature 97.3 F L Temperature Source Temporal Pulse Rate 66 70 Respiratory Rate 14 18 Respiratory Effort Normal Non-Labored Blood Pressure 124/56 H 108/53 L Blood Pressure Mean 78 71 Pulse Ox 92 93 Oxygen Delivery Method Room Air Room Air 07/17/23 13:52 07/17/23 13:33 07/17/23 13:40 Temperature Temperature Source Pulse Rate 63 74 Respiratory Rate 10 L 14 Respiratory Effort Blood Pressure Blood Pressure Mean Pulse Ox 90 92 Oxygen Delivery Method Room Air 07/17/23 13:50 07/17/23 14:00 07/17/23 14:10 Temperature Temperature Source Pulse Rate 62 65 73 Respiratory Rate 9 L 16 20 H Respiratory Effort Blood Pressure 101/47 L Blood Pressure Mean 56 Pulse Ox 92 93 89 Oxygen Delivery Method 07/17/23 14:20 07/17/23 14:30 07/17/23 14:40 Temperature Temperature Source Pulse Rate 76 78 74 Respiratory Rate 30 H 20 H 30 H Respiratory Effort Blood Pressure Blood Pressure Mean Pulse Ox 92 89 92 Oxygen Delivery Method 07/17/23 14:50 07/17/23 15:00 07/17/23 17:00 Temperature Temperature Source Pulse Rate 64 61 59 L Respiratory Rate 7 L 26 H 16 Respiratory Effort Blood Pressure 107/72 115/65 Blood Pressure Mean 82 81 Pulse Ox 93 94 94 Oxygen Delivery Method Room Air 07/17/23 17:00 07/17/23 15:10 07/17/23 15:20 Temperature Temperature Source Pulse Rate 60 60 62 Respiratory Rate 31 H 14 18 Respiratory Effort Blood Pressure 115/65 Blood Pressure Mean 81 Pulse Ox 94 93 93 Oxygen Delivery Method Room Air 07/17/23 15:30 07/17/23 15:40 07/17/23 15:50 Temperature Temperature Source Pulse Rate 62 69 78 Respiratory Rate 16 47 H 26 H Respiratory Effort Blood Pressure Blood Pressure Mean Pulse Ox 92 93 91 Oxygen Delivery Method 07/17/23 16:00 07/17/23 16:10 07/17/23 16:20 Temperature Temperature Source Pulse Rate 69 63 67 Respiratory Rate 17 15 27 H Respiratory Effort Blood Pressure 104/91 H Blood Pressure Mean 97 Pulse Ox 89 94 93 Oxygen Delivery Method 07/17/23 16:30 07/17/23 16:40 07/17/23 16:50 Temperature Temperature Source Pulse Rate 88 72 70 Respiratory Rate 43 H 22 H 25 H Respiratory Effort Blood Pressure Blood Pressure Mean Pulse Ox 90 95 95 Oxygen Delivery Method Positive well nourished and well developed General Appearance ED: well developed and NAD HEENT Reports moist mucous membranes Neck supple and no JVD Chest Wall Chest: tenderness costal cartilage Resp normal respiratory effort and clear to auscultation bilaterally Cardio regular rate and regular rhythm GI soft to palpation, non-tender and non-distended Neuro oriented x3, CN's II-XII intact bilaterally and no sensory deficits noted Sensorium / Orientation: awake and alert Motor Exam: strength 5/5 throughout Psych mental status grossly normal Heart Score History: Slightly/Non-Suspicious ECG: Normal Age: >/= 65 years Risk Factors: >/= 3 Risk Factors or History of CAD Troponin: </= Normal Limit Score: 4 MDM MDM MDM Narrative Medical decision making narrative: Differential diagnosis includes cardiac dysrhythmia, cardiac ischemia, musculoskeletal pain, electrolyte abnormality, pneumonia, pneumothorax, and anxiety. EKG will be obtained to assess for cardiac dysrhythmia and cardiac ischemia. Chest x-ray will be obtained to assess for pneumonia and pneumothorax. CBC will be obtained to assess for leukocytosis and anemia. Basic metabolic profile will be obtained to assess for electrolyte abnormality and renal function. High-sensitivity troponin will be obtained to assess for cardiac ischemia. 2-hour repeat high-sensitivity troponin will be obtained to assess for ongoing cardiac ischemia. History & Record Review Additional record(s) reviewed:: Prior labs Lab Data Attestation: I reviewed the patient's lab results. Lab results narrative: CBC was reviewed. There is a mild anemia with a hemoglobin of 11.1 and hematocrit of 35.5. These are consistent with prior results. Basic metabolic profile was reviewed. BUN was slightly elevated at 36 and creatinine was slightly elevated 1.69. These are slightly increased from previous result. Initial high-sensitivity troponin was reviewed and was normal at 8. 2-hour repeat high-sensitivity troponin was reviewed and was normal at 10. Labs: Laboratory Results - last 24 hr 07/17/23 07/17/23 14:20 16:40 WBC 5.6 RBC 3.42 L Hgb 11.1 L Hct 35.5 L MCV 103.8 H MCH 32.5 H MCHC 31.3 L RDW Std Deviation 51.0 H RDW Coeff of [place] 13.4 Plt Count 210 MPV 11.7 Immature Gran % (Auto) 0.200 Neut % (Auto) 56.1 Lymph % (Auto) 22.7 [place] % (Auto) 13.3 H Eos % (Auto) 7.3 H Baso % (Auto) 0.4 Absolute Neuts (auto) 3.2 Absolute Lymphs (auto) 1.28 Nucleated RBC % 0 Sodium 139 Potassium 4.5 Chloride 109 H Carbon Dioxide 24.0 Anion Gap 6 BUN 36 H Creatinine 1.69 H Estim Creat Clear Calc 23.98 Est GFR (MDRD) Af Amer 38 L Est GFR (MDRD) Non-Af 31 L BUN/Creatinine Ratio 21.3 H Glucose 80 Calcium 8.7 Troponin I High Sens 8 10 Radiography Chest X-Ray - ED: 1 View, Read by ED Physician, Read by Radiologist and No Acute Disease Diagnostic Testing: Clinical Impression(s) from Imaging Studies Chest X-Ray 07/17/23 13:52 IMPRESSION: Mild residual scarring at the lung bases. No acute abnormality is seen. Electronically Signed: Milan Pino MD at 14:41 EDT , Portable 1 view chest x-ray was obtained. On my independent interpretation, lung blanchard are clear. There is normal cardiac silhouette. Bony thorax is normal. There is no acute process noted. Radiologist also interpreted the x- ray and agrees. EKG Initial EKG: Attestation: I personally reviewed and interpreted this EKG as follows: Interpretation: Sinus Rhythm (71) and No Acute Injury Pattern Comments: EKG was obtained. On my independent interpretation, it showed a normal sinus rhythm with a rate of 71. ND interval, QRS interval, and QTc intervals were all normal. [place] was normal. There are no acute ST or T wave changes. Prior EKG tracings: available for review Prior: Unchanged (04/23/2022) Treatment and Re-Evaluation :: Patient was given aspirin. Patient was given IV fluids and Tylenol. Patient informed nursing staff that she was having some epigastric pain. Patient was given a GI cocktail. Patient was advised of her findings. Patient has a HEART score of 4. Patient was instructed to follow-up with her primary care physician in 3 to 5 days. Patient understood and was agreeable with the plan. All questions were answered. Discharge Plan Triage Chief Complaint: Chest Pain ED Provider: Jesse Esparza Dx/Rx/DC Orders Clinical Impression: Chest pain of uncertain etiology, Essential hypertension, H/O coronary artery bypass surgery Instructions: ED Chest Pain, Uncertain Cause Prescriptions: No Action chlorthalidone 25 mg tablet 25 mg PO DAILY potassium chloride [Klor-Con M20] 20 mEq tablet,ER particles/crystals 20 meq PO DAILY rosuvastatin 20 mg Tablet 20 mg PO QHS labetalol 200 mg tablet 200 mg PO BID valsartan 320 mg tablet 320 mg PO DAILY Patient Comments: TAKE 1 TABLET BY MOUTH EVERY DAY aspirin 81 mg tablet,delayed release (DR/EC) 81 mg PO DAILY@0800 pantoprazole [Protonix] 40 mg tablet,delayed release (DR/EC) 40 mg PO DAILY tramadol 50 mg tablet 50 mg PO DAILY PRN (Reason: pain) Patient Comments: today was last dose for pt Primary Care Provider: Elroy Wellington Referrals: Elroy Wellington MD [Primary Care Provider] - 3-5 Days Disposition Disposition: Home, Self Care
--- NOTE | 2023-07-17 13:52 | RAD_ITS ---
STUDY: X-RAY CHEST REASON FOR EXAM: Female, 73 years old. Chest pain TECHNIQUE: Single AP portable view of the chest. COMPARISON: Comparison is made with prior study dated April 23, 2022. FINDINGS: EKG electrodes are seen. Persistent mild increased markings at the lung bases suggestive of scarring. There has been improvement as compared to prior study. There is no demonstrated pleural abnormality. Sternal cerclage wires and vascular clips are present from a prior sternotomy and coronary artery bypass graft procedure (CABG). Normal mediastinum and lynn. There is prominence of the pulmonary hilar arteries without peripheral pulmonary vascular congestion, suggesting pulmonary hypertension. There is atherosclerotic calcification of the aortic arch with tortuosity. There is demineralization of the osseous structures. Normal visualized ribs, clavicles, and shoulders. There is no demonstrated abnormality of the visualized soft tissue structures of the upper abdomen. RAD/Chest 1 View (Portable) IMPRESSION: Mild residual scarring at the lung bases. No acute abnormality is seen. Electronically Signed: Milan Pino MD at 14:41 EDT ,
[2023-07-17] MEDS: Aspirin 81 MG TAB.CHEW 324 MG PO (14:17)
[2023-07-17 14:32] LABS: Absolute Lymphocyte Count 1.28 X10^3/uL (0.83-4.51); Absolute Neutrophil Count 3.2 X10^3/uL (2.0-7.7); Basophil# 0.02 X10^3/uL; Basophil% 0.4 % (0-1); Eosinophil# 0.41 X10^3/uL; Eosinophils% 7.3 % (0-5); Hematocrit 35.5 % (37-47); Hemoglobin 11.1 g/dL (12.0-15.0); Lymphocyte # 1.28 X10^3/ul (0.83-4.51); Lymphocyte % 22.7 % (19-41); Mean Corp Hgb Conc 31.3 g/dL (32-36); Mean Corpuscular Hgb 32.5 pg (27.0-32.0); Mean Corpuscular Volume 103.8 fL (81-99); Mean Platelet Vol. 11.7 fl (6.2-12.0); Monocyte# 0.75 X10^3/uL; Monocyte% 13.3 % (0-10); NRBC Flagged by Analyzer 0 % (0-5); Neutrophil # 3.17 X10^3/uL (2.7-7.7); Neutrophil % 56.1 % (47-70); Platelet Count 210 K/mm3 (150-450); RBC Distribution Width CV 13.4 % (11.6-14.6); Red Blood Count 3.42 M/mm3 (4.2-5.4); White Blood Count 5.6 K/mm3 (4.4-11.0)
[2023-07-17 14:49] LABS: Anion Gap 6 (5-15); BUN 36 mg/dL (7-18); BUN/Creat Ratio 21.3 RATIO (10-20); Calcium,Total 8.7 mg/dL (8.5-10.1); Chloride 109 mmol/L (98-107); Creatinine, Serum 1.69 mg/dL (0.55-1.02); EST Glomerular Filtration Rate 31 mL/min (>60); Est Glom Filt Rate - Afr Amer 38 mL/min (>60); Estimated Creatinine Clearance 23.98 ml/min; Glucose 80 mg/dL (74-106); Potassium 4.5 mmol/L (3.5-5.1); Sodium Level 139 mmol/L (136-145); Troponin-I HS (w/2H Reflex) 8 pg/mL (3.0-54.0)
[2023-07-17 16:27] LABS: Reflex Troponin-HS? (from REC) Y
[2023-07-17] MEDS: 0.9% Normal Saline (1000mL) 1,000 ML 1000 ML IV (16:40)
[2023-07-17] MEDS: Acetaminophen 500 MG Tablet 1000 MG PO (16:41)
[2023-07-17 17:08] LABS: Troponin-I HS 10 pg/mL (3.0-54.0)
[2023-07-17] MEDS: Mag Hydrox/Al Hydrox/Simeth 30 ML UDC PO (17:10)
== END 2023-07-17 17:45 | disposition home or self-care (01) ==
PROVIDERS: Emergency Provider Emergency Medicine; PCP Family Medicine; Visit Provider Emergency Medicine
DX: R07.9 Chest pain, unspecified (principal); E78.00 Pure hypercholesterolemia, unspecified; I10 Essential (primary) hypertension; Z95.1 Presence of aortocoronary bypass graft; R10.13 Epigastric pain; Z90.49 Acquired absence of other specified parts of digestive tract; M54.9 Dorsalgia, unspecified; R05.9 Cough, unspecified; M54.2 Cervicalgia; Z79.82 Long term (current) use of aspirin; K21.9 Gastro-esophageal reflux disease without esophagitis; Z86.16 Personal history of COVID-19; I25.10 Atherosclerotic heart disease of native coronary artery without angina pectoris; R42 Dizziness and giddiness
CPT/HCPCS: 36415; 71045; 80048; 84484; 85025; 93005; 96360; 99284; J7030; A4216

== ENCOUNTER 2023-08-18 17:40 | Emergency (ER) | payer MEDICARE, SELFPAY ==
[2023-08-18 17:42] VITALS: BP 124/74; PULSE 84; RESP 18; TEMP 36.6; O2SAT 97
--- NOTE | 2023-08-18 19:34 | ED.RN ---
Pt is coming to desk frequently asking how long her wait is going to be as she's been here for 3 hours! This RN educated pt on the process of taking pt's based on acuity and that unfortunately there are pt's sicker than her. Pt is reminded that her vitals are normal and that pain though unfortunate doesn't put you ahead of cardiac or respiratory pt's. Pt asks for assistance to the restroom. 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 Pt screams that it's been getting worse! This RN assisted pt to brp and back to waiting room. Pt is hyperventilating and yells that she is a respiratory pt! This RN reminded pt to take slow calming breaths and that her rapid rate will likely only cause her more pain d/t her injury.
== END 2023-08-18 19:54 | disposition left against medical advice (07) ==
LOC: ED 19:54
PROVIDERS: PCP Family Medicine
DX: Z53.21 Procedure and treatment not carried out due to patient leaving prior to being seen by health care provider (principal)

== ENCOUNTER 2023-08-20 09:30 | Outpatient (CLI) | payer MEDICARE, SELFPAY ==
--- NOTE | 2023-08-20 09:33 | RAD_ITS ---
STUDY: X-RAY - BILATERAL RIBS WITH CHEST REASON FOR EXAM: Female, 73 years old. Rib injury, patient leaned over her washing machine to get clothes, right side rib pain now. TECHNIQUE - RIBS: 4 oblique views of the ribs. TECHNIQUE - CHEST: 3 frontal views of the chest. COMPARISON: Chest x-ray dated 07/17/2023. FINDINGS - RIBS : There are fractures of the lateral aspects of the right seventh and eighth ribs. Normal visualized left ribs without a demonstrated fracture. FINDINGS - CHEST: There are sternal cerclage wires in place. There are increased interstitial markings in the perihilar regions bilaterally. There is no demonstrated pleural abnormality. Normal size heart. Normal mediastinum and lynn. Normal visualized pulmonary arteries. There is atherosclerotic calcification of the aortic arch with tortuosity. Normal visualized thoracic spine. There is levoscoliosis of the lumbar spine. Normal visualized ribs, clavicles, and shoulders. There is no demonstrated abnormality of the visualized soft tissue structures of the upper abdomen. RAD/Ribs Dylon Min 4V w/PA Chest IMPRESSION: RIBS: Fractures of the lateral aspects of the right seventh and eighth ribs. CHEST: Increased interstitial markings in the perihilar regions bilaterally. Electronically Signed: Toni Sales MD at 8:42 EDT ,
[2023-08-20 13:04] LABS: Anion Gap 6 (5-15); BUN 39 mg/dL (7-18); BUN/Creat Ratio 28.3 RATIO (10-20); Calcium,Total 8.7 mg/dL (8.5-10.1); Chloride 107 mmol/L (98-107); Cholesterol 140 mg/dL (200); Creatinine, Serum 1.38 mg/dL (0.55-1.02); EST Glomerular Filtration Rate 40 mL/min (>60); Est Glom Filt Rate - Afr Amer 48 mL/min (>60); Glucose 159 mg/dL (74-106); High Density Lipoprotein 62 mg/dL; Potassium 4.8 mmol/L (3.5-5.1); Sodium Level 138 mmol/L (136-145); Triglycerides 165 mg/dL; Very Low Density Lipoprotein 33 mg/dL (5-40)
== END 2023-08-20 23:59 | disposition home or self-care (01) ==
PROVIDERS: PCP Family Medicine; Referring Provider Family Medicine; Visit Provider Family Medicine
DX: S29.9XXA Unspecified injury of thorax, initial encounter (principal); X58.XXXA Exposure to other specified factors, initial encounter
CPT/HCPCS: 36415; 71111; 80048; 80061

== ENCOUNTER → 2023-10-02 | Outpatient (CLI) | payer MEDICARE, SELFPAY ==
[2023-10-02 10:50] LABS: Anion Gap 4 (5-15); BUN 16 mg/dL (7-18); BUN/Creat Ratio 22.8 RATIO (10-20); Calcium,Total 9.2 mg/dL (8.5-10.1); Chloride 110 mmol/L (98-107); Cholesterol 145 mg/dL (200); EST Glomerular Filtration Rate 87 mL/min (>60); Est Glom Filt Rate - Afr Amer 105 mL/min (>60); Glucose 191 mg/dL (74-106); High Density Lipoprotein 48 mg/dL; Potassium 4.4 mmol/L (3.5-5.1); Sodium Level 139 mmol/L (136-145); Triglycerides 186 mg/dL; Very Low Density Lipoprotein 37 mg/dL (5-40)
[2023-10-02 11:10] LABS: Hemoglobin A1c 6.1 % (3.8-5.6)
== END | disposition home or self-care (01) ==
LOC: MFPLAB 09:11
PROVIDERS: PCP Family Medicine; Visit Provider Family Medicine
DX: Z00.00 Encounter for general adult medical examination without abnormal findings (principal); I10 Essential (primary) hypertension
CPT/HCPCS: 36415; 80048; 80061; 83036

== ENCOUNTER 2024-01-13 11:00 | Outpatient (RCR) | payer MEDICARE, SELFPAY ==
--- NOTE | 2023-12-18 15:14 | HP.PTEVAL_ITS ---
Patient's Visit Information Visit Information Visit Information: NEHEMIAS VARELA is a 73 year old F referred to Physical Therapy by Dr. Chadd Walton MD with a diagnosis of BACK PAIN. Date of Evaluation: 12/18/23 Physical Therapist: Melissa Quinonez PT, Cert MDT Visit Plan Frequency: 2-3x /Week Duration: 4-6 Weeks Plan: AQUATIC THERAPY (PATIENT HAS A POOL AT HOME) 2X'S A WK X 4-6 WKS FOR BACK AND LEG PAIN RELIEF, CORE AND LE ROM, STRETCHING AND STRENGTHEING WITH A NEUTRAL SPINE PROGRESSING ROM TOLERATED. POSTURE TRAINING. INSTRUCTION IN PROPER BODY MECHANICS. HEP INSTRUCION. Subjective Subjective: Work/Leisure: RETIRED. LIVES IN ONE STORY HOME. 2 STEPS INTO HOME Present symptoms: CY LOW BACK PAIN, L THIGH AND LEG PAIN. PATIENT DENIES L LE NUMBNESS AND TINGLING. NOT USUALLY INTO FOOT. CY LEG CRAMP L MUCH GREATER THAN RIGHT AND MORE AT NIGHT THAN DURING THE DAY. Present since: CHRONIC FOR YEARS Pain Scale: WORST 8/10, LEAST 4/10 Currently: 6/10 Is it getting better, worse or staying the same: GETTING WORSE Commenced as a result of: NO APPARENT REASON Symptoms at onset: LOW BACK PAIN Worse: WALKING, VACUUMING, MOPPING, CARRYING LAUNDRY BASKET, SWEEPING WITH BROOM, WORSE IN MORNING, NIGHT, LIFTING, Better: TRAMADOL, LONG HOT BATH, MUSCLE RELAXER. ICY HOT Disturbed sleep: YES Previous history/Previous treatment: PINCHED N. L4 AND L5 DX'D ABOUT 10 YEARS AGO. ALSO DX'D WITH SCOLIOSIS. LONG H/O UPPER BACK PAIN PRIOR TO LOW BACK DX. BACK SURGERY RECOMMENDED ABOUT 4 YEARS AGO BUT STARTED FEELING PRESSURE ON CHEST AND HAD TO HAVE QUINTUPLE HEART BYPASS SURGERY. Treatment this episode: TRAMADOL, M. RELAXER. Coughing/sneezing/straining: POSITIVE FOR INCREASED PAIN. Gait: TIME AND DISTANCE LIMITED. PATIENT DENIES USE OF AD'S. REPORTS DIFFICULTY STANDING UP STRAIGHT UPON RISING FROM SITTING. ALSO GETS MORE DIFFICULT TO STAND UP STRAIGHT THE FURTHER SHE WALKS. Bowel or Bladder Dysfunction: STRESS UI. Accidents: NO Unexplained weight loss: NO Imaging: NONE RECENT. PMH/Recent major surgery: L CTS, L RCR. SCOLIOSIS.R FINGER PROBLEMS. HIGH CHOLESTEROL, HTN OTHER: PATIENT IS READY TO CONSIDER BACK SURGERY AGAIN IF SHE IS HEATHY ENOUGH AND REQUESTED PT. STATES SHE DOES NOT WANT TO HAVE INJECTIONS AND THEY WERE RECOMMENDED BY INSURANCE IN THE PAST. Objective Objective: Sitting/Standing Posture: SCOLIOSIS Other Observations: INDEP ANTALGIC GAIT INTO PT WITHOUT ANY AD'S INTO PT. INDEP DIFFICULT TRANSFER SIT TO STAND WITHOUT UE ASSIST. DIFFICULTY GETTING UPRIGHT AND INITIATING GAIT AFTER SITTING. DECREASED CADANCE AND LIMPING ON LLE DURING GAIT. Sensory deficit: CY LE LIGHT TOUCH SENSATION GROSSLY INTACT AND SYMMETRICAL ROM deficit: TIGHT CY HIP FLEXORS, HS'S AND CALVES. Motor deficit: CY LE WEAKNESS L > R. R HIP 4/5, KNEE 4/5, ANKLE 5/5. L HIP 3+/5, KNEE 3+/5, ANKLE 4/5. PATIENT IS ABLE TO WALK ON HER TOES AND WALK ON HER HEELS WITH ON UE LIGHT ASSIST. Reflexes: R QUAD 2+, L QUAD 1+. R ACHILLES 2+, L ACHILLES 1+. Dural Signs: POSITIVE CY LE'S L > R Lumbar mvmt loss: flex - MOD ext - CARIDAD R SG - CARIDAD L SG - MOD PATIENT C/O INCREASED BACK PAIN WITH LUMBAR ROM TESTING ALL PLANES Core strength: POOR Palpation: CY LUMBAR TENDERNESS WITH LIGHT PALPATION. Goals Goal 1:: DECREASE C/O BACK AND LE SX'S BY AT LEAST 50% TO EASE ADL AND SLEEP FUNCTION Goal Time Frame: 4-6 Weeks Goal 2:: PATIENT WILL SCORE AT LEAST 5 POINTS BETTER ON THE BACK OSWESTRY QUESTIONNAIRE Goal Time Frame: 4-6 Weeks Goal 3:: PATIENT WILL BE ABLE TO TOLERATE AT LEAST 5 EXERCISES THAT HELP INCREASE HER CORE OR LEG STRENGTH OR ROM. Goal Time Frame: 4-6 Weeks Rehabilitation Potential Physical Therapy Diagnosis: THIS PATIENT PRESENTS TO PT WITH BACK AND LE PAIN, WEAKNESS, STIFFNESS AND HYPOMOBILITY. Rehabilitation Potential: Fair Anticipated Interventions Patient/Client Instruction: Educate patient on: Condition, Plan of Care and Risk Factors For the Purpose of:: To improve self management Therapeutic Exercise to Include: Strength training, Body mechanics, Postural training, Flexibilty training, Gait and locomotor training, Neuromotor development, In an aquatic setting and Dynamic Lumbar Stabilization For the Purpose of:: To decrease pain, To improve muscle performance and motor function, To increase tolerance to activity/condition/position, To improve ability of physical actions for home/community/work/leisure and To improve gait and locomotor functions Text: Thank you for the opportunity to evaluate your patient. For Medicare and Medicare HMO plans, please review the plan of care and approve it. It will need to be FAXED BACK to us at [phone] for Medicare purposes. For Medicare only, by signing this I certify the plan of care. Please let me know if there are questions or concerns regarding this plan of care. Physician Signature: Date:
--- NOTE | 2024-01-13 12:13 | HP.PTDCSUM ---
Discharge Summary D/C summary: It has been my pleasure to treat NEHEMIAS VARELA referred by Dr. Chadd Kaufman MD, with the diagnosis of BACK PAIN for a total of 6 visit(s). Discharge Date: 01/13/24 Please see the following information for a summary of their discharge status. Subjective Subjective: PATIENT REPORTS WENT TO SEE DR. KAUFMAN YESTERDAY FOR HER BACK AND LEG PAIN. SHE ALSO REPORTS INCREASED R KNEE PAIN ABOUT 10 DAYS AGO FOR NO APPARENT REASON. SHE REPORTS HE PRESCRIBED A STRONGER MUSCLE RELAXER AND RENEWED HER PAIN MEDICINE. FOLLOW UP WITH DR. KAUFMAN PENDING IN 3 MONTHS. SHE STATES SHE WANTS TO CONTINUE THE WATER THERAPY BECAUSE IT RELAXES HER BACK AND LEGS SOME BUT SHE DOESN'T KNOW HOW MUCH SHE CAN AFFORD. SHE STATES SHE GETS SOME RELIEF IN THE POOL BUT MISSED 2 VISITS DUE TO diarrhea. Pain LB: Pain Intensity (Out of 10): 5 KNees: Pain Intensity (Out of 10): 7 Overall Improvement % Improvement: 10 Objective Objective/Function: THIS PATIENT AMBULATES INDEP'LY INTO PT TODAY LIMPING ON HER R LE WITH DECREASED CADANCE AND INCREASED TRUNK FLEXION. SHE IS UNABLE TO SLS ON HER R LE AND UNABLE TO HEEL WALK OR TOE WALK. Motor deficit: R HIP 4-/5, KNEE 3-/5, ANKLE 4/5. L HIP 4-/5, KNEE 3+/5, ANKLE 4/5. ROM: R KNEE: 0-0-104, L KNEE 0-0-118. GIRTH MEASUREMENTS: R KNEE JT LINE 36CM, L KNEE 36CM. Dural Signs: POSITIVE CY LE'S L > R Lumbar mvmt loss: flex - MOD ext - CARIDAD R SG - CARIDAD L SG - MOD PATIENT C/O INCREASED BACK PAIN WITH LUMBAR ROM TESTING ALL PLANES Core strength: POOR Palpation: CY LUMBAR TENDERNESS WITH LIGHT PALPATION. PATIENT ALSO HAS R KNEE TENDERNESS WITH LIGHT PALPATION THROUGHOUT THE JOINT. PATIENT REPORTS THERAPY IS REALLY COST PROHIBITIVE BUT DOES GIVE HER SOME RELIEF. SHE WOULD LIKE TO TRY TO CONTINUE WHAT SHE HAS LEARNED IN [facility]ERAP[facility] AND SEE HOW IT GOES. THIS PT ENCOURAGED PATIENT TO KEEP ALL EX'S IN COMFORTABLE ROM AND INTENSITY AND FOLLOW BACK UP WITH DR. KAUFMAN IF NOT IMPROVING. PATIENT AGREEABLE. Goals Goal 1:: DECREASE C/O BACK AND LE SX'S BY AT LEAST 50% TO EASE ADL AND SLEEP FUNCTION Goal Progress: Progressing Goal 2:: PATIENT WILL SCORE AT LEAST 5 POINTS BETTER ON THE BACK OSWESTRY QUESTIONNAIRE Goal 3:: PATIENT WILL BE ABLE TO TOLERATE AT LEAST 5 EXERCISES THAT HELP INCREASE HER CORE OR LEG STRENGTH OR ROM. Goal Progress: Progressing Plan Plan: D/C TO INDEP WATER EXERCISE AT PATIENT REQUEST. D/C Information d/c sentence: If there are questions or concerns regarding this patient's physical therapy, please feel free to call me at [phone]. Thank you for the referral of this patient. Sincerely, Melissa Quinonez, PT, Cert MDT Balance/Gait/Functional tests Improvement % Improvement: 10
== END 2024-01-13 19:00 | disposition home or self-care (01) ==
LOC: PT 11:00
PROVIDERS: PCP Family Medicine; Referring Provider Family Medicine; Visit Provider Family Medicine
DX: M54.9 Dorsalgia, unspecified (principal)
CPT/HCPCS: 97113; 97162; 97530

== ENCOUNTER 2024-01-20 12:04 | Inpatient (IN) | payer MEDICARE, SELFPAY ==
[2024-01-20] VITALS (17 sets, daily range): BP systolic 111–169; BP diastolic 51–91; PULSE 68–124; RESP 10–32; TEMP 35.8–36.7; O2SAT 91–98; BMI 26.7; BMI 26.6
--- NOTE | 2024-01-20 12:07 | ED.RN ---
pt. very restless and a harm to herself in bed. Pt. tries to throw herself over side of bed. Does not follow commands, moving legs side to side and hitting rails in legs/feet.
--- NOTE | 2024-01-20 12:39 | EX.ED.DYSGE1 ---
HPI History of Present Illness Chief Complaint: Alt LOC Informant: family Narrative Narrative: 73-year-old female last seen normal yesterday by her significant other, found her on the floor next to bed this morning around 7 AM, and she has been confused all day, arrives after noon in ER for evaluation. She is not able to give us any history due to severe confusion and agitation. Significant other states she has a prescription for baclofen which she has had in the past, unknown if she took it as a muscle relaxer last night. She is usually alert and oriented x 3 and ambulatory. He states she drove to the store downtown last night without difficulty. He states she has had multiple falls in the past week or so, she had 1 yesterday with some bruising on her toe and left thigh as a result of trying to get into bed using her step stool as usual, but missed and fell against the bedframe. [facility] Medical History Preop cardiovascular exam Dyspnea Acute respiratory failure with hypoxia COVID-19 Anemia Chronic pain Facial droop Postoperative atrial fibrillation (11/10/20) Essential hypertension Atherosclerosis of circle coronary artery of circle heart without angina pectoris Pinched vertebral nerve Scoliosis GERD (gastroesophageal reflux disease) HLD (hyperlipidemia) History of back pain Home Medications ?Medication ?Instructions ?Recorded ?Last Taken ?Type rosuvastatin 20 mg tablet 20 mg PO QHS cholesterol 12/15/20 07/16/23 History aspirin 81 mg tablet,delayed 81 mg PO DAILY@0800 Check with 06/12/21 07/17/23 History release primary doctor labetalol 200 mg tablet 200 mg PO BID Check with primary 06/12/21 07/17/23 History doctor pantoprazole 40 mg tablet,delayed 40 mg PO DAILY Check with primary 06/12/21 07/17/23 History release (Protonix) doctor valsartan 320 mg tablet 320 mg PO DAILY Check with primary 06/12/21 07/17/23 History doctor chlorthalidone 25 mg tablet 25 mg PO DAILY 08/14/21 07/17/23 History potassium chloride 20 mEq 20 meq PO DAILY 11/20/21 07/17/23 History tablet,extended release(part/cryst) (Klor-Con M) tramadol 50 mg tablet 50 mg PO Q8H pain 07/17/23 07/17/23 History baclofen 10 mg tablet 10 mg PO TID 01/20/24 Unknown History gabapentin 300 mg capsule 300 mg PO DAILY 01/20/24 Unknown History Allergy/AdvReac Type Severity Reaction Status Date / Time levofloxacin Allergy Severe leg pain Verified 01/20/24 14:17 amiodarone Allergy mental Verified 01/20/24 14:17 confusion Penicillins Allergy Unknown Verified 01/20/24 14:17 Sulfa (Sulfonamide Allergy Rash Verified 01/20/24 14:17 Antibiotics) ciprofloxacin AdvReac Rash Verified 01/20/24 14:17 lorazepam (From Ativan) AdvReac I went Verified 01/20/24 14:17 crazy Family History Mother Alcoholism Father Hypertension Brother Diabetes Sister Diabetes Hypertension Sister No problems noted. Son Hypertension Other Kidney disease Surgical History H/O coronary artery bypass surgery (11/08/20) History of appendectomy History of cholecystectomy History of left heart catheterization (11/03/20) Social History household members: spouse pets and animals: Yes (cats) Smoking Status: Never smoker alcohol intake: never substance use type: does not use caffeine: Yes Type: carbonated beverages ROS ROS ED Review of Systems ROS Unobtainable: due to mental status EXAM Physical Exam Const Vital Signs: 01/20/24 12:05 01/20/24 12:20 01/20/24 13:00 Temperature 96.4 F L Temperature Source Temporal Pulse Rate 124 H 124 H 77 Respiratory Rate 30 H 26 H 10 L Blood Pressure 159/72 H 134/66 H Blood Pressure Mean 101 88 Pulse Ox 91 93 Oxygen Delivery Method Room Air Nasal Cannula Oxygen Flow Rate (L/min) 2 01/20/24 13:16 01/20/24 14:08 01/20/24 15:00 Temperature Temperature Source Pulse Rate 82 90 Respiratory Rate 12 10 L Blood Pressure 138/76 H 169/73 H Blood Pressure Mean 96 105 Pulse Ox 93 96 96 Oxygen Delivery Method Nasal Cannula Nasal Cannula Nasal Cannula Oxygen Flow Rate (L/min) 2 2 2 Positive well nourished and well developed General Appearance ED: well developed HEENT Reports moist mucous membranes HEENT Narrative: No Bowling sign or raccoon eyes or other signs of head trauma normocephalic and atraumatic Eyes PERRL and EOMs intact bilaterally Eyes Narrative: Pupils 2-3 mm bilaterally and reactive. Extraocular movements grossly intact no forced deviation but not able to follow commands. Neck full ROM and supple Neck Narrative: Moving neck all around the obvious tenderness or step-off Resp clear to auscultation bilaterally Resp Narrative: Tachypneic and agitated, breath sounds are equal bilaterally Cardio regular rate, regular rhythm and no murmurs GI non-tender and non-distended Auscultation: normoactive bowel sounds Palpation: soft Back/Spine General Back: other FROM Extremity normal to inspection General Extremety ED: Negative for edema, pulses abnormal or tenderness General Extremity: Negative for edema or pulses abnormal Neuro CN's II-XII intact bilaterally and no sensory deficits noted Neuro Narrative: Nonverbal. Does not follow commands. Moving all 4 extremities equally, restrained by staff due to extreme agitation and trying to get out of bed. Keenly alert, tracks with her eyes. Sensorium / Orientation: awake, alert and orientation impaired Motor Exam: strength 5/5 throughout Skin Skin Narrative: No rashes but there are multiple areas of bruising. The left great toe appears to be scraped and bruised without deformity. There is a large broad-based ecchymotic/purpuric area to the left proximal thigh where states she had a fall yesterday. There are some minor abrasions to the right upper arm part of which is caused by EMS trying to get an IV at the antecubital fossa, there appears to be no limited or painful range of motion of any joint. MDM MDM MDM Narrative Medical decision making narrative: Patient is very altered and agitated moving all 4 extremities, not following commands, clearly acutely encephalopathic. This is not seizure activity but nurses put pads up to help protect her and restrained her for same reason. She has a declared allergy from Ativan, although it appears to be side effect, I do not want to make her worse and give her Geodon to help sedate her so we can obtain studies. This was done without complication. I reviewed CT of the head images as well as report which I agree with, it is negative. Chest x-ray appears to be consistent with cephalization and congestion on my interpretation, no focal consolidation. Radiology in agreement. However, she is tachycardic and her lactic acid returns at 4.8, so she was given 30 cc/kg of IV fluid bolus which helped her heart rate come down to 82 and her blood pressure remained stable, and she so far has not become hypoxic. I did CPK which is over 2000, consistent with rhabdomyolysis likely from lying on the floor longer than thought this morning. IV fluids indicated for this as well. No sign of UBALDO at this time. I did add on a BNP. Her lungs sounded clear and states she does have lung scar tissue from the past. She does appear to have an injury to the toe that the states occurred during her accidental fall last night, I obtained x-rays of the left foot, 3 views of my interpretation show nondisplaced fracture of the great toe distal phalanx. This appears likely nonoperative. She can be placed in a postop shoe. Cath urine returned negative for infection. Discussed with hospitalist. Agrees with admitting her to the ICU given she will likely need higher level of nursing care at least. Also agrees this could be medication-related encephalopathy. Lab Data Attestation: I reviewed the patient's lab results. Labs: Laboratory Results - last 24 hr 01/20/24 01/20/24 12:15 14:05 WBC 8.6 RBC 3.82 L Hgb 12.1 Hct 38.9 MCV 101.8 H MCH 31.7 MCHC 31.1 L RDW Std Deviation 46.5 H RDW Coeff of Douglas 12.4 Plt Count 239 MPV 12.4 H Immature Gran % (Auto) 0.500 Neut % (Auto) 70.6 H Lymph % (Auto) 17.9 L Hunt % (Auto) 8.3 Eos % (Auto) 2.2 Baso % (Auto) 0.5 Absolute Neuts (auto) 6.0 Absolute Lymphs (auto) 1.53 Nucleated RBC % 0 PT 14.0 INR 1.1 APTT 31.2 Sodium 145 Potassium 4.1 Chloride 113 H Carbon Dioxide 21.0 Anion Gap 11 BUN 19 H Creatinine 1.02 Estim Creat Clear Calc 39.23 Est GFR (MDRD) Af Amer 68 Est GFR (MDRD) Non-Af 56 L BUN/Creatinine Ratio 18.6 Glucose 112 H Lactic Acid 4.8 H* Calcium 9.2 Total Bilirubin 0.60 AST 60 H ALT 36 Alkaline Phosphatase 240 H Total Creatine Kinase 2004 H Troponin I High Sens 39 Total Protein 6.8 Albumin 3.7 Globulin 3.1 Albumin/Globulin Ratio 1.2 Urine Color Yellow Urine Clarity Clear Urine pH 6.0 Ur Specific [place] 1.020 Urine Protein Negative Urine Glucose (UA) Normal Urine Ketones Negative Urine Occult Blood Negative Urine Nitrite Negative Urine Bilirubin Negative Urine Urobilinogen Normal Ur Leukocyte Esterase Negative Urine RBC 0 SEEN Urine WBC 0 SEEN Ur Squamous Epith Cells 0 SEEN Urine Bacteria 1+ Urine Mucus 0 SEEN ABG Data ABG results: ABG 01/20/24 12:57 Specimen Type ART Sample Site R Brach pH 7.45 Bicarbonate Actual 15.8 L Total CO2 17 Base Excess -8 L O2 Saturation 93 L ABG pCO2 23.0 L ABG pO2 61 L Anurag Test Positive O2 Delivery Device Room Air Vent Mode Not entered Radiography Diagnostic Testing: Clinical Impression(s) from Imaging Studies Abdomen/Pelvis CT 01/20/24 13:20 IMPRESSION: Distended urinary bladder. Status post cholecystectomy with intrahepatic blue ductal dilatation and dilatation of the common bile duct. Stable left renal cysts. Electronically Signed: Milan Pino MD at 14:01 EDT , Brain CT 01/20/24 13:20 IMPRESSION: Chronic involutional changes of the brain. Electronically Signed: Milan Pino MD at 13:57 EDT , Chest X-Ray 01/20/24 13:25 IMPRESSION: Findings in keeping with CHF. 1.1 cm nodule in the peripheral lateral aspect of the right upper lobe. Questionable foreign body overlying the right upper lobe as described. Electronically Signed: Milan Pino MD at 14:04 EDT , Foot X-Ray 01/20/24 13:25 IMPRESSION: Nondisplaced fracture at the base of the distal pharynx of the great toe. Soft tissue swelling Electronically Signed: Milan Pino MD at 14:06 EDT , Rhythm Strip Rhythm Strip: Sinus Rhythm Rate: 80 Ectopy: None EKG Initial EKG: Attestation: I personally reviewed and interpreted this EKG as follows: Interpretation: Sinus Rhythm and No Acute Injury Pattern Comments: QTc 515 Management Discussion w/another healthcare provider: Hospitalist Critical Care Time Critical Care Time: Yes Critical care time (excluding procedures): 30-74 minutes (34 min), Including time spent:, Discussing w/Patient &/or Family/Sponge Packer, Discussing w/Consultants, Arranging Admission or Transfer and Performing Direct Patient Care at Bedside Discharge Plan Dx/Rx/DC Orders Clinical Impression: Acute encephalopathy, Rhabdomyolysis, Closed nondisplaced fracture of left great toe, Acidosis, lactic, Agitation Disposition Disposition: Acute Care [facility]
[2024-01-20] MEDS: 0.9% Normal Saline (1000mL) 1,000 ML 999 ML IV ×2 (12:59→14:39)
[2024-01-20 13:00] LABS: Absolute Lymphocyte Count 1.53 X10^3/uL (0.83-4.51); Basophil# 0.04 X10^3/uL; Basophil% 0.5 % (0-1); Eosinophil# 0.19 X10^3/uL; Eosinophils% 2.2 % (0-5); Hematocrit 38.9 % (37-47); Hemoglobin 12.1 g/dL (12.0-15.0); Lymphocyte # 1.53 X10^3/ul (0.83-4.51); Lymphocyte % 17.9 % (19-41); Mean Corp Hgb Conc 31.1 g/dL (32-36); Mean Corpuscular Hgb 31.7 pg (27.0-32.0); Mean Corpuscular Volume 101.8 fL (81-99); Mean Platelet Vol. 12.4 fl (6.2-12.0); Monocyte# 0.71 X10^3/uL; Monocyte% 8.3 % (0-10); NRBC Flagged by Analyzer 0 % (0-5); Neutrophil # 6.04 X10^3/uL (2.7-7.7); Neutrophil % 70.6 % (47-70); Platelet Count 239 K/mm3 (150-450); RBC Distribution Width CV 12.4 % (11.6-14.6); RBC Distribution Width SD 46.5 fl (35.1-43.9); Red Blood Count 3.82 M/mm3 (4.2-5.4); White Blood Count 8.6 K/mm3 (4.4-11.0)
[2024-01-20 13:01] LABS: Allen Test Positive; Base Excess -8 mmol/L (-2 to +2); Bicarbonate 15.8 mmol/L (22-26); Blood Gas Specimen Type ART; Mode Not entered; O2 Delivery Device Room Air; PO2 61 mmHG (75-100); SITE R Brach; SO2 93 % (95-99); Total Carbon Dioxide 17 mmol/L; pH 7.45 (7.35-7.45)
[2024-01-20 13:12] LABS: International Normalized Ratio 1.1
--- NOTE | 2024-01-20 13:20 | CT_ITS ---
STUDY: CT ABDOMEN AND PELVIS WITHOUT CONTRAST REASON FOR EXAM: Female, 73 years old. Altered mental status, fall RADIATION DOSAGE (If Supplied By Facility): CTDIvol = ( 16.22 ) mGy, DLP = ( 814.47 ) mGycm TECHNIQUE: Transaxial images were obtained from the dome of the diaphragm to the symphysis pubis without oral contrast, and without intravenous contrast. Sagittal and coronal images were reconstructed. Individualized dose optimization techniques were used for this CT. COMPARISON: Comparison is made with prior study dated December 16, 2022. FINDINGS: Mild increased linear markings at the lung bases suggestive of scarring and/or atelectasis. Prior CABG. Coronary artery calcification. Stable dilated central intrahepatic biliary ducts. Stable dilated common bile duct down to the ampulla of Vater with a transverse dimension of 2 cm. The patient is status post cholecystectomy. There are multiple benign calcified granulomata of the spleen. Normal pancreas. Normal bilateral adrenal glands. Stable right renal cysts. Normal left kidney. Normal visualized stomach. Normal small intestine. Normal colon. There is non-visualization of the appendix. There is diffuse atherosclerotic calcification of the abdominal aorta and its major visceral branches, without a demonstrated aneurysm. Normal inferior vena cava. Normal retroperitoneum. Distended urinary bladder. Normal abdominal wall. There are diffuse degenerative changes of the visualized lumbar spine. Stable mild anterolisthesis of L4 on L5. Levoscoliosis. CT/Abdomen/Pelvis without Cont IMPRESSION: Distended urinary bladder. Status post cholecystectomy with intrahepatic blue ductal dilatation and dilatation of the common bile duct. Stable left renal cysts. Electronically Signed: Milan Pino MD at 14:01 EDT ,
--- NOTE | 2024-01-20 13:20 | CT_ITS ---
STUDY: CT BRAIN WITHOUT CONTRAST REASON FOR EXAM: Female, 73 years old. Altered mental status RADIATION DOSAGE (If Supplied By Facility): CTDIvol = ( 44.99 ) mGy, DLP = ( 897.35 ) mGycm TECHNIQUE: Transaxial CT imaging of the brain was performed without administration of intravenous contrast material. Individualized dose optimization techniques were used for this CT. COMPARISON: Comparison is made with prior study dated February 22, 2021. FINDINGS: Normal soft tissue structures. There is hyperostosis frontalis internus. Normal size ventricles and extra-axial spaces for the patient''s age. Normal white matter tracts of the cerebral hemispheres. There are small punctate calcifications of the basal ganglia which are seen in the aging brain as a normal variant. Normal brainstem. Normal cerebellum. There is no intracranial hemorrhage. There are no findings of an acute ischemic infarction. Atherosclerotic calcification of the vertebral arteries and cavernous portions of the internal carotid arteries bilaterally. Partial opacification of the sphenoid sinus. Stable nondisplaced C1 fracture of the posterior ring on the left side. CT/Brain/Head without Contrast IMPRESSION: Chronic involutional changes of the brain. Electronically Signed: Milan Pino MD at 13:57 EDT ,
--- NOTE | 2024-01-20 13:25 | RAD_ITS ---
STUDY: X-RAY - LEFT FOOT CLINICAL: Female, 73 years old. Swelling and bruising overlying the great toe. TECHNIQUE: 3 view(s) of the foot. COMPARISON: None. FINDINGS: Normal talus, calcaneus, and tarsal bones. Normal visualized subtalar, talonavicular, calcaneocuboid, tarsal and tarsometatarsal articulations. Normal metatarsi. There is degenerative arthrosis of the metatarsophalangeal joint of the hallux . Normal tibial and fibular sesamoid bones. Normal interphalangeal joint of the great toe. Nondisplaced fracture at the base of the distal phalanx of the great toe. Normal second through fifth metatarsophalangeal joints. Normal interphalangeal joints and phalanges of the lesser toes. Soft tissue swelling. RAD/Foot min 3 Views IMPRESSION: Nondisplaced fracture at the base of the distal pharynx of the great toe. Soft tissue swelling Electronically Signed: Milan Pino MD at 14:06 EDT ,
--- NOTE | 2024-01-20 13:25 | RAD_ITS ---
STUDY: X-RAY CHEST REASON FOR EXAM: Female, 73 years old. Altered MS TECHNIQUE: Single AP portable view of the chest. COMPARISON: Comparison is made with prior study July 17, 2023. FINDINGS: EKG electrodes are seen. Vascular congestion and mild CHF. 1.1 cm nodule in the peripheral lateral aspect of the right upper lobe. This was not well-seen on prior study. There there is evidence of 7.6 cm x 1.2 cm tubular structure overlying the right upper lobe. Is no demonstrated pleural abnormality. Sternal cerclage wires and vascular clips are present from a prior sternotomy and coronary artery bypass graft procedure (CABG). Normal mediastinum and lynn. Normal visualized pulmonary arteries. There is atherosclerotic calcification of the aortic arch with tortuosity. There are diffuse degenerative changes of the visualized thoracic spine. Normal visualized ribs, clavicles, and shoulders. There is no demonstrated abnormality of the visualized soft tissue structures of the upper abdomen. RAD/Chest 1 View (Portable) IMPRESSION: Findings in keeping with CHF. 1.1 cm nodule in the peripheral lateral aspect of the right upper lobe. Questionable foreign body overlying the right upper lobe as described. Electronically Signed: Milan Pino MD at 14:04 EDT ,
[2024-01-20 13:26] LABS: Partial Thromboplast Time 31.2 Seconds (24.1-36.2)
[2024-01-20 13:35] LABS: ALB/GLOB Ratio 1.2 RATIO (0.9-2.4); AST(SGOT) 60 U/L (15-37); Alanine Aminotransfer ALT/SGPT 36 U/L (13-56); Albumin, Serum 3.7 g/dL (3.2-5.0); Alkaline Phosphatase 240 U/L (45-117); Anion Gap 11 (5-15); BUN 19 mg/dL (7-18); BUN/Creat Ratio 18.6 RATIO (10-20); CPK Total, Creatine Kinase 2004 U/L (26-192); Calcium,Total 9.2 mg/dL (8.5-10.1); Chloride 113 mmol/L (98-107); Creatinine, Serum 1.02 mg/dL (0.55-1.02); EST Glomerular Filtration Rate 56 mL/min (>60); Est Glom Filt Rate - Afr Amer 68 mL/min (>60); Estimated Creatinine Clearance 39.23 ml/min; Globulin 3.1 g/dL (2.2-4.2); Glucose 112 mg/dL (74-106); Potassium 4.1 mmol/L (3.5-5.1); Protein, Total 6.8 g/dL (6.4-8.2); Sodium Level 145 mmol/L (136-145); Troponin-I HS 39 pg/mL (3.0-54.0)
[2024-01-20 14:02] LABS: Lactic Acid 4.8 mmol/L (0.4-1.9)
[2024-01-20 14:11] LABS: Mucous, Urine 0 SEEN /hpf (<or=2+); Red Blood Cells-Urine 0 SEEN /hpf (0-5); Squamous Epithelial Cells - UA 0 SEEN /hpf (5-10); White Blood Cells 0 SEEN /hpf (0-5)
[2024-01-20 14:38] LABS: Color, Urine Yellow (Yellow); Glucose, Dipstick Normal (Normal); Ketone-Dipstick Negative (Negative); Leukocyte Esterase-Dipstick Negative /ul (Negative); Nitrite-Dipstick Negative (Negative); Occult Blood-Urine Negative /ul (Negative); Protein-Dipstick Negative (Negative); Urine Bilirubin Dipstick Negative (Negative); Urine Clarity Clear (Clear); Urine Urobilinogen Normal (Normal)
[2024-01-20 14:56] LABS: Bacteria 1+ /hpf (None Seen)
--- NOTE | 2024-01-20 15:05 | HP.PCM.HOS_ITS ---
HPI - General General Date of Admission: 01/20/24 Date of Service: 01/20/24 Chief Complaint: Altered mental status HPI Narrative NEHEMIAS VARELA, is a 73 F who presented to the emergency department at [facility] on 01/14/2024 due to altered mental status. The patient significant other presented with her to the emergency department and reported yesterday she seemed a little confused prior to bed but during the day yesterday she seemed okay and was able to drive to the store. Evidently a new muscle relaxant was started last evening on her for chronic back issues. He states that she is unable to have back surgery due to the fact that she has significant coronary disease and underwent bypass surgery. It appears that baclofen was started yesterday. Her /significant other is unclear if she took it last night or how much she took. Typically, he states she is alert and oriented x 3 and ambulatory. He does indicate she has had multiple falls within the last week and had 1 yesterday with some bruising on her toe and left thigh as a result. She does have multiple bruises on her bilateral lower extremities proximally and distally as well as on her arms that appear to be in various stages of healing at the time of physical exam. She was unable to participate with any exam and unable to follow commands consistently. She was very agitated in the emergency department to the point where she required IM Geodon. Her did report that he found her on the floor next to the bed this morning and that she has been confused all morning prior to presenting to the emergency department around noon for evaluation. Vital signs on presentation showed a temperature of 96.4, initial heart rate was 124 with repeat at 77, initial respiratory rate was 30 with repeat at 12, oxygen saturation was 91% on room air and subsequently improved to 93% on 2 L nasal cannula. Her CBC was overall unremarkable. She had a very minimal left shift with a 70.6% neutrophilia. Coags were normal. An ABG was performed and pH was normal at 7.45 with a pCO2 of 23 and a pO2 of 61 on room air. Oxygen saturation was 93%. Chemistry panel was unremarkable with normal renal function. Initial lactic acid was 4.8 with a repeat at 0.8. Liver function was overtly unremarkable. BNP was 112.9. Her UA was unremarkable other than some specific gravity elevation at 1.02. Toxicology screen was negative for salicylates, acetaminophen level was only 3.6 and screen was otherwise negative. Ethyl alcohol level was unremarkable at less than 3. Ammonia level is pending. EKG shows normal sinus rhythm with prolonged QTc at 510. No ST-T wave changes were noted to be consistent with acute ischemia. CT of the abdomen pelvis was done as patient was not a reliable historian and showed only distended bladder, intrahepatic bile ducts consistent with previous cholecystectomy and stable left renal cysts, CT of the brain showed chronic involutional changes, chest x-ray was suggestive of some mild volume overload and a 1.1 cm nodule in the peripheral aspect of the right upper lobe, foot x-ray was done due to ecchymosis noted on her left foot at the great toe and showed a nondisplaced fracture at the base of the distal phalanx of the great toe with soft tissue swelling. COVID/flu/RSV was negative. Cultures were sent however overall suspicion for infection was low and therefore antibiotics were not started. Highly suspect this may be medication induced as patient has had previous intolerance to oral lorazepam which caused excessive agitation as well. Patient was admitted to the ICU and case further IV medication was required for agitation such as Precedex. [facility] Medical History Preop cardiovascular exam Dyspnea Acute respiratory failure with hypoxia COVID-19 Anemia Chronic pain Facial droop Postoperative atrial fibrillation (11/10/20) Essential hypertension Atherosclerosis of [place] coronary artery of [place] heart without angina pectoris Pinched vertebral nerve Scoliosis GERD (gastroesophageal reflux disease) HLD (hyperlipidemia) History of back pain Home Medications ?Medication ?Instructions ?Recorded ?Last Taken ?Type rosuvastatin 20 mg tablet 20 mg PO QHS cholesterol 12/15/20 07/16/23 History aspirin 81 mg tablet,delayed 81 mg PO DAILY@0800 Check with 06/12/21 07/17/23 History release primary doctor labetalol 200 mg tablet 200 mg PO BID Check with primary 06/12/21 07/17/23 History doctor pantoprazole 40 mg tablet,delayed 40 mg PO DAILY Check with primary 06/12/21 07/17/23 History release (Protonix) doctor valsartan 320 mg tablet 320 mg PO DAILY Check with primary 06/12/21 07/17/23 History doctor chlorthalidone 25 mg tablet 25 mg PO DAILY 08/14/21 07/17/23 History potassium chloride 20 mEq 20 meq PO DAILY 11/20/21 07/17/23 History tablet,extended release(part/cryst) (Klor-Con M) tramadol 50 mg tablet 50 mg PO Q8H pain 07/17/23 07/17/23 History baclofen 10 mg tablet 10 mg PO TID 01/20/24 Unknown History gabapentin 300 mg capsule 300 mg PO DAILY 01/20/24 Unknown History Allergy/AdvReac Type Severity Reaction Status Date / Time levofloxacin Allergy Severe leg pain Verified 01/20/24 14:17 amiodarone Allergy mental Verified 01/20/24 14:17 confusion Penicillins Allergy Unknown Verified 01/20/24 14:17 Sulfa (Sulfonamide Allergy Rash Verified 01/20/24 14:17 Antibiotics) ciprofloxacin AdvReac Rash Verified 01/20/24 14:17 lorazepam (From Ativan) AdvReac I went Verified 01/20/24 14:17 crazy Family History Mother Alcoholism Father Hypertension Brother Diabetes Sister Diabetes Hypertension Sister No problems noted. Son Hypertension Other Kidney disease Surgical History History of left heart catheterization (11/03/20) History of appendectomy H/O coronary artery bypass surgery (11/08/20) History of cholecystectomy Social History household members: spouse pets and animals: Yes (cats) Smoking Status: Never smoker alcohol intake: never substance use type: does not use caffeine: Yes Type: carbonated beverages ROS Review of Systems ROS Unobtainable: due to mental status Vital Signs Vital Signs Vital Signs: 01/20/24 12:05 01/20/24 12:20 01/20/24 13:00 Temperature 96.4 F L Temperature Source Temporal Pulse Rate 124 H 124 H 77 Respiratory Rate 30 H 26 H 10 L Blood Pressure 159/72 H 134/66 H Blood Pressure Mean 101 88 Pulse Ox 91 93 Oxygen Delivery Method Room Air Nasal Cannula Oxygen Flow Rate (L/min) 2 01/20/24 13:16 01/20/24 14:08 Temperature Temperature Source Pulse Rate 82 Respiratory Rate 12 Blood Pressure 138/76 H Blood Pressure Mean 96 Pulse Ox 93 96 Oxygen Delivery Method Nasal Cannula Nasal Cannula Oxygen Flow Rate (L/min) 2 2 Weight Weight: 62.1 kg Body Mass Index (BMI) 26.7 Physical Exam Const alert, average body habitus and well nourished; Negative for oriented x3, no apparent distress or healthy appearing Constitutional Narrative: Agitated, older, white female, sitting up in bed, movement is constant and patient appears to be extremely restless, at bedside General Appearance: uncooperative Orientation / Consciousness: confused and disoriented HEENT normocephalic and head/scalp atraumatic; Negative for moist oral mucous membranes HEENT Narrative: Edentulous, mucous membranes appear to be slightly dry Eyes PERRL and conjunctivae normal Eyes Narrative: No scleral icterus Neck no lymphadenopathy and supple Neck Narrative: Trachea midline, no thyroid enlargement Resp normal respiratory effort, no retractions, no use of accessory muscles and clear to auscultation bilaterally Auscultation: Negative for rales, rhonchi or wheezes Cardio regular rate, regular rhythm, S1 normal heart sound, S2 normal heart sound, no murmurs, no rub, no gallops and no clicks GI normal to inspection, nondistended, normoactive bowel sounds, soft to palpation and non-tender Extremity no clubbing, cyanosis or edema Skin No no rashes or lesions noted, No no wounds, No skin turgor normal, no jaundice, no petechiae and no mottling Skin Narrative: Scattered bilateral lower extremity ecchymotic changes, scattered bilateral upper extremity ecchymotic changes, extensive ecchymosis left great toe area Neuro moves all extremities Neuro Narrative: Restless but moves all extremities spontaneously, does not follow commands Sensorium / Orientation: awake Speech: Negative for speech normal Psych Psych Narrative: Patient with extreme agitation Results Lab / Micro Data 01/20/24 12:15 01/20/24 12:15 Labs: Laboratory Results - last 24 hr 01/20/24 12:15: WBC 8.6, RBC 3.82 L, Hgb 12.1, Hct 38.9, MCV 101.8 H, MCH 31.7, MCHC 31.1 L, RDW Std Deviation 46.5 H, RDW Coeff of [place] 12.4, Plt Count 239, MPV 12.4 H, Immature Gran % (Auto) 0.500, Neut % (Auto) 70.6 H, Lymph % (Auto) 17.9 L, [place] % (Auto) 8.3, Eos % (Auto) 2.2, Baso % (Auto) 0.5, Absolute Neuts (auto) 6.0, Absolute Lymphs (auto) 1.53, Nucleated RBC % 0, PT 14.0, INR 1.1, APTT 31.2, Sodium 145, Potassium 4.1, Chloride 113 H, Carbon Dioxide 21.0, Anion Gap 11, BUN 19 H, Creatinine 1.02, Estim Creat Clear Calc 39.23, Est GFR (MDRD) Af Amer 68, Est GFR (MDRD) Non-Af 56 L, BUN/Creatinine Ratio 18.6, Glucose 112 H, L actic Acid 4.8 H*, Calcium 9.2, Total Bilirubin 0.60, AST 60 H, ALT 36, Alkaline Phosphatase 240 H, Total Creatine Kinase 2004 H, Troponin I High Sens 39, Total Protein 6.8, Albumin 3.7, Globulin 3.1, Albumin/Globulin Ratio 1.2 01/20/24 14:05: Urine Color Yellow, Urine Clarity Clear, Urine pH 6.0, Ur Specific [place] 1.020, Urine Protein Negative, Urine Glucose (UA) Normal, Urine Ketones Negative, Urine Occult Blood Negative, Urine Nitrite Negative, Urine Bilirubin Negative, Urine Urobilinogen Normal, Ur Leukocyte Esterase Negative, Urine RBC 0 SEEN, Urine WBC 0 SEEN, Ur Squamous Epith Cells 0 SEEN, Urine Bacteria 1+, Urine Mucus 0 SEEN Micro: Microbiology 01/20/24 12:15 Mucosa - Nose SARS-CoV-2, Influenza & RSV (PCR) - Final ABG Data ABG results: ABG 01/20/24 12:57 Specimen Type ART Sample Site R Brach pH 7.45 Bicarbonate Actual 15.8 L Total CO2 17 Base Excess -8 L O2 Saturation 93 L ABG pCO2 23.0 L ABG pO2 61 L Anurag Test Positive O2 Delivery Device Room Air Vent Mode Not entered Rhythm Strip Rhythm Strip: Sinus Rhythm Rate: 80 Ectopy: None Imaging Radiology Impression Abdomen/Pelvis CT 01/20/24 13:20 IMPRESSION: Distended urinary bladder. Status post cholecystectomy with intrahepatic blue ductal dilatation and dilatation of the common bile duct. Stable left renal cysts. Electronically Signed: Milan Pino MD at 14:01 EDT , Brain CT 01/20/24 13:20 IMPRESSION: Chronic involutional changes of the brain. Electronically Signed: Milan Pino MD at 13:57 EDT , Chest X-Ray 01/20/24 13:25 IMPRESSION: Findings in keeping with CHF. 1.1 cm nodule in the peripheral lateral aspect of the right upper lobe. Questionable foreign body overlying the right upper lobe as described. Electronically Signed: Milan Pino MD at 14:04 EDT , Foot X-Ray 01/20/24 13:25 IMPRESSION: Nondisplaced fracture at the base of the distal pharynx of the great toe. Soft tissue swelling Electronically Signed: Milan Pino MD at 14:06 EDT , Assessment & Plan Assessment/Plan (1) Agitation: (2) Acidosis, lactic: (3) Closed nondisplaced fracture of left great toe: (4) Rhabdomyolysis: (5) Toxic metabolic encephalopathy: (6) Medication side effect: (7) Hypoxia: PLAN: Plan Toxic/metabolic encephalopathy/agitation -Etiology is unclear however it appears to be medication related with adverse reaction due to baclofen -We are completely unclear as to when she took the medication or what dosing she took -Workup otherwise has been fairly unremarkable -Check ammonia level -ABG unremarkable -no signs of infection -CT brain unremarkable -Tox screen neg -EtOH unremarkable -hold home po meds until mental status clears--> pt NPO for now -run LR at 125 -if does not clear with hydration and time for drug clearance will need further workup -Blood and urine cultures ordered but will hold antibiotics at this time as suspicion for infection is low currently -Patient with significant agitation emergency department and was given IM Geodon -Will admit to the ICU in case agitation is persistent and patient needs Precedex Lactic acidosis -Etiology is unclear -Resolved quickly with IV fluids -Urine is consistent with dehydration so this may have been due to volume depletion -Blood pressure was always stable Hypoxia -Hypoxic on presentation but has since resolved and now on room air -COVID/flu/RSV is negative Rhabdomyolysis -Patient got aggressive IV fluids emergency department -Will continue hydration at 125 -Repeat CK in a.m. -Renal function is normal but will trend Closed fracture of great toe-left -Nondisplaced fracture at the base of the distal phalanx of the left great toe -Consult podiatry Chronic low back pain -Hold home Ultram -Hold home baclofen-this was new medication -Recommend outpatient follow-up with pain management if she is not already following CAD/essential HTN/HPL -CABG x 5: TAO-LAD, SVG-OM1, SVG-Ramus, SVG-RPDA, SVG-RPLVB 11/08/20 -Has been doing well medically from a vascular standpoint -Hold home valsartan -Hold home labetalol -Hold home chlorthalidone -Will schedule IV metoprolol 5 every 6 and scheduled enalaprilat until p.o. medications can be restarted -Hold home statin until p.o. medications can be restarted GERD -Hold home Protonix p.o. -IV Protonix 40 mg daily until p.o. can be reinitiated DVT prophylaxis -Subcu Lovenox 40 daily CODE STATUS -Full code as verified by significant other in the emergency department prior to admission Charges/Coding Visit Charges Inpatient E&M: 25254 Init Hosp L3
[2024-01-20 15:42] LABS: BNP,B-Type NATRIURETIC PEPTIDE 102.9 pg/mL (0-100)
[2024-01-20] MEDS: Ziprasidone IM 20 MG/ML VIAL IM ×2 (15:45→22:31)
[2024-01-20 15:51] LABS: Amphetamine Urine VISTA NEGATIVE (<1000 ng/mL); Barbiturate Urine VISTA NEGATIVE (< 200 ng/mL); Benzodiazepine Urine VISTA NEGATIVE (< 200 ng/mL); Cocaine Urine VISTA NEGATIVE (< 300 ng/mL); Ecstacy Urine VISTA NEGATIVE (< 500 ng/mL); Methadone Urine VISTA NEGATIVE (< 300 ng/mL); PCP Urine VISTA NEGATIVE (< 25 ng/mL); THC Urine VISTA NEGATIVE (< 50 ng/mL); Vista UDS pH Range 5
[2024-01-20 15:59] LABS: Acetaminophen (Tylenol) Level 3.6 ug/mL (10.0-30.0); Alcohol, Blood (Medical)-Serum < 3.0 mg/dL; Salicylate < 1.7 mg/dL (2.8-20.0)
[2024-01-20 16:04] LABS: Reflex Lactate? Y
[2024-01-20 16:39] LABS: Lactic Acid 0.8 mmol/L (0.4-1.9)
[2024-01-20] MEDS: Lactated Ringers 1,000 ML 125 ML IV (20:12)
[2024-01-20] MEDS: Metoprolol Tartrate 5 MG/5 ML Vial IV (20:13)
[2024-01-20] MEDS: Enalaprilat 1.25 MG/ML Vial 0.625 MG IV (20:13)
--- NOTE | 2024-01-20 21:51 | PCM.HOSP.N ---
Hospitalist Note Patient with recurrent severe agitation. From records and discussion with staff ativan causes severe agitation/anxiety. Tolerated geodon well and last received at noon earlier in the day. Will re-dose with geodon. If further regimen is needed may need to trial precedex low dose.
[2024-01-21] VITALS (23 sets, daily range): BP systolic 110–166; BP diastolic 49–99; PULSE 65–109; RESP 15–28; TEMP 36.4–37.2; O2SAT 92–98; BMI 26.2
[2024-01-21] MEDS: Metoprolol Tartrate 5 MG/5 ML Vial IV ×3 (01:12→12:41)
[2024-01-21] MEDS: Lactated Ringers 1,000 ML 125 ML IV ×3 (03:57→18:07)
[2024-01-21 04:07] LABS: Absolute Lymphocyte Count 1.74 X10^3/uL (0.83-4.51); Absolute Neutrophil Count 5.5 X10^3/uL (2.0-7.7); Basophil# 0.04 X10^3/uL; Basophil% 0.5 % (0-1); Eosinophil# 0.32 X10^3/uL; Eosinophils% 3.7 % (0-5); Hematocrit 37.4 % (37-47); Hemoglobin 11.5 g/dL (12.0-15.0); Lymphocyte # 1.74 X10^3/ul (0.83-4.51); Mean Corp Hgb Conc 30.7 g/dL (32-36); Mean Corpuscular Hgb 31.9 pg (27.0-32.0); Mean Corpuscular Volume 103.6 fL (81-99); Mean Platelet Vol. 11.8 fl (6.2-12.0); Monocyte# 1.03 X10^3/uL; Monocyte% 11.8 % (0-10); NRBC Flagged by Analyzer 0 % (0-5); Neutrophil # 5.54 X10^3/uL (2.7-7.7); Neutrophil % 63.7 % (47-70); Platelet Count 168 K/mm3 (150-450); RBC Distribution Width CV 12.5 % (11.6-14.6); RBC Distribution Width SD 47.8 fl (35.1-43.9); Red Blood Count 3.61 M/mm3 (4.2-5.4); White Blood Count 8.7 K/mm3 (4.4-11.0)
[2024-01-21 04:39] LABS: Anion Gap 12 (5-15); BUN 13 mg/dL (7-18); BUN/Creat Ratio 22.5 RATIO (10-20); CPK Total, Creatine Kinase 1346 U/L (26-192); Chloride 116 mmol/L (98-107); Creatinine, Serum 0.58 mg/dL (0.55-1.02); EST Glomerular Filtration Rate 108 mL/min (>60); Est Glom Filt Rate - Afr Amer 131 mL/min (>60); Estimated Creatinine Clearance 49.44 ml/min; Glucose 54 mg/dL (74-106); Magnesium 1.9 mg/dL (1.6-2.6); Phosphorus 3.2 mg/dL (2.5-4.9); Potassium 3.5 mmol/L (3.5-5.1); Sodium Level 146 mmol/L (136-145); Thyroid Stim Hormone (TSH) 0.488 uIU/mL (0.358-3.740)
[2024-01-21] MEDS: Enalaprilat 1.25 MG/ML Vial 0.625 MG IV ×2 (06:32→12:40)
[2024-01-21] MEDS: Dextrose 10%-Water 250 ML 999 ML IV (06:32)
[2024-01-21 07:23] LABS: Bedside Glucose 146 mg/dL (74-106)
--- NOTE | 2024-01-21 10:05 | CASEMGMT ---
ANG ZHANG Assessment Face to Face with patient for initial transition planning/care coordination assessment. RN CM introduced self and role at [facility], pt voices understanding. Pt is A&Ox2 to self and place and is resting comfortably in bed and is calm. Pt at bedside. Pt and pt are agreeable to answering this ANG ZHANG questions for assessment. Care providers, pharmacy, and demographics verified. Admitting dx: Encephalopathy, Agitation, Lactic Acidosis LACE Strata: 2 PCP: Chadd Walotn Specialists: Trang (BOO) Preferred Pharm[facility] Prescription Benefit: Yes LNOK: Jeremy Mirza (H) Living Arrangements: Pt lives with her in a single story home with 2 steps to enter with a handrail ADLs/IADLs: Reports ind [employer] Transportation: Self, . Denies concerns DME: BP Monitor. Pulse Ox. Access to FWW and cane HHC/SNF: Pt reports that the pt had HHC x1-2 years ago but the pt did not like the experience. Pt and pt are unaware of the name of the agency. Denies SNF Hx Plan: TBD. Anticipate eventual DC home. Pt states that the pt is active with OP therapy at . Pt states that the pt is active with the [employer] program. At this time, the pt states that the pt will most likely not want HHC and would prefer to DC home with his help and the continuation of the OP Tx at . However, PT/OT are pending. CM to follow. Domingo Bob RN, CM
[2024-01-21] MEDS: Pantoprazole Sodium 40 MG in 0.9% Normal Saline (100mL MB+) 100 ML 330 MG IV (10:30)
[2024-01-21] MEDS: Enoxaparin 40 MG/0.4 ML Syringe SC (10:32)
--- NOTE | 2024-01-21 14:36 | PN_ITS ---
Subjective Subjective Patient seen and examined. Her was by her bedside. She was admitted with a complaint of lethargy and weakness as well as altered mental status. Her encephalopathy was thought to be due to baclofen which she had just been started on. She is much more alert today, though she remains confused. She knows she is in the hospital but she does not know exactly which hospital she is in. She does not know what year it is or what city she is in of the current president and ceo. She however denies any fever or chills, cough, chest pain, palpitation, dizziness, nausea or vomiting. Review of systems otherwise negative. Objective Data Objective Data Vital Signs: Vital Signs Temp Pulse Resp BP Pulse Ox O2 Del Method O2 Flow Rate 97.5 F L 98 23 H 157/78 H 96 Room Air 2 01/21/24 08:00 01/21/24 13:00 01/21/24 13:00 01/21/24 13:00 01/21/24 13:00 01/21/24 13:00 01/21/24 07:00 Oxygen Flow Rate (L/min) 2 Oxygen Delivery Method Room Air Weight: 133 lb 9.602 oz Body Mass Index (BMI) 26.2 Intake & Output: Intake and Output for Last 24 Hours 01/19/24 01/20/24 01/21/24 23:59 23:59 23:59 Intake Total 1999 / 1999 2527.08 / 2527.08 Output Total 300 / 300 900 / 900 Balance 1700 / 1700 1627.08 / 1627.08 Lab / Micro Data 01/21/24 03:50 01/21/24 03:50 Labs: Laboratory Results - last 24 hr 01/20/24 12:15: B-Natriuretic Peptide 102.9 H 01/20/24 14:05: Urine Color Yellow, Urine Clarity Clear, Urine pH 6.0, Ur Specific [place] 1.020, Urine Protein Negative, Urine Glucose (UA) Normal, Urine Ketones Negative, Urine Occult Blood Negative, Urine Nitrite Negative, Urine Bilirubin Negative, Urine Urobilinogen Normal, Ur Leukocyte Esterase Negative, Urine RBC 0 SEEN, Urine WBC 0 SEEN, Ur Squamous Epith Cells 0 SEEN, Urine Bacteria 1+, Urine Mucus 0 SEEN, Salicylates < 1.7 L, Urine Opiates Screen NEGATIVE, Urine Methadone Screen NEGATIVE, Acetaminophen 3.6 L, Ur Barbiturates Screen NEGATIVE, Ur Phencyclidine Scrn NEGATIVE, Ur Amphetamines Screen NEGATIVE, MDMA (Ecstasy) Screen NEGATIVE, U Benzodiazepines Scrn NEGATIVE, Urine Cocaine Screen NEGATIVE, U Cannabinoids Screen NEGATIVE, Ur Drug Screen Comment , Ethyl Alcohol < 3.0 01/20/24 16:05: Lactic Acid 0.8 01/20/24 20:25: Ammonia 20.0 01/21/24 03:50: WBC 8.7, RBC 3.61 L, Hgb 11.5 L, Hct 37.4, MCV 103.6 H, MCH 31.9, MCHC 30.7 L, RDW Std Deviation 47.8 H, RDW Coeff of [place] 12.5, Plt Count 168, MPV 11.8, Immature Gran % (Auto) 0.300, Neut % (Auto) 63.7, Lymph % (Auto) 20.0, [place] % (Auto) 11.8 H, Eos % (Auto) 3.7, Baso % (Auto) 0.5, Absolute Neuts (auto) 5.5, Absolute Lymphs (auto) 1.74, Nucleated RBC % 0, Sodium 146 H, Potassium 3.5, Chloride 116 H, Carbon Dioxide 18.0 L, Anion Gap 12, BUN 13, Creatinine 0.58, Estim Creat Clear Calc 49.44, Est GFR (MDRD) Af Amer 131, Est GFR (MDRD) Non-Af 108, BUN/Creatinine Ratio 22.5 H, Glucose 54 L, Calcium 9.0, Phosphorus 3.2, Magnesium 1.9, Total Creatine Kinase 1346 H, TSH 0.488 01/21/24 07:04: POC Glucose 146 H Micro: Microbiology 01/20/24 14:05 Urine, Catheterized Urine Culture - Preliminary Culture exhibits no growth. 01/20/24 12:15 Mucosa - Nose SARS-CoV-2, Influenza & RSV (PCR) - Final Rhythm Strip Rhythm Strip: Sinus Rhythm Rate: 80 Ectopy: None Physical Exam Const alert Orientation / Consciousness: confused HEENT normocephalic, head/scalp atraumatic and moist oral mucous membranes Eyes PERRL and EOMs intact bilaterally Neck no lymphadenopathy and supple Lymph Lymphatic: no lymphadenopathy noted Resp Resp Narrative: mildly diminished breath sounds bibasally, no wheezes or crackles. On room air. Cardio regular rate, regular rhythm, S1 normal heart sound, S2 normal heart sound and no murmurs GI normal to inspection, nondistended, normoactive bowel sounds, soft to palpation and non-tender Extremity normal capillary refill, no clubbing, cyanosis or edema and no calf tenderness General Extremity: no tenderness to palpation of joints or extremities Skin General Skin Exam: no breakdown Neuro CN's II-XII intact bilaterally and no focal motor deficits Motor Exam: strength 5/5 throughout and general weakness Psych cooperative Psych Narrative: confused Assessment & Plan Assessment/Plan (1) Toxic metabolic encephalopathy: (2) Medication side effect: PLAN: Plan #Acute encephalopathy * She was brought in because of concerns that she was confused. She had recently started baclofen. * Baclofen discontinued. Patient now alert but still remains confused. Urine tox negative. * Vitals have remained stable. There is no evidence of infection. * PT OT on board. * Ammonia level was also not elevated and CT of the brain showed no acute intracranial pathology. #Lactic acidosis: Resolved #Hypoxia: Resolved. On room air #Rhabdomyolysis: * CPK was 2004 on admission and trending down to 1346. Continue aggressive hydration with IV fluids. C #Closed fracture of the left great toe * Patient's left great toe is swollen and erythematous. * Imaging done showed nondisplaced fracture at the base of the distal phalanx of the left great toe. * Podiatry consulted. * #Chronic low back pain: Ultram and baclofen on hold due to her presenting with confusion. #CAD s/p CABG: on aspirin and high intensity statin. #Hypertension: * On valsartan, labetalol and chlorthalidone. * These were held on admission due to encephalopathy. * Will resume these now since she is more alert. #Hyperlipidemia: On statin #GERD: On PPI. Will resume p.o. Protonix #DVT prophylaxis: Lovenox Disposition: Transfer out of ICU to [facility]. Charges/Coding Visit Charges Inpatient E&M: 22361 Subs Hosp L2
[2024-01-21] MEDS: Labetalol 200 MG Tablet PO (21:18)
[2024-01-21] MEDS: Atorvastatin Calcium 40 MG Tablet PO (21:18)
[2024-01-22] VITALS (10 sets, daily range): BP systolic 155–174; BP diastolic 82–93; PULSE 93–106; RESP 16–20; TEMP 36.3–36.7; O2SAT 95–99; BMI 27.0
[2024-01-22] MEDS: Lactated Ringers 1,000 ML 125 ML IV ×3 (04:52→18:55)
[2024-01-22] MEDS: hydrALAZINE 20 MG/ML Vial 10 MG IV ×2 (06:36→18:02)
[2024-01-22 07:48] LABS: Absolute Lymphocyte Count 0.92 X10^3/uL (0.83-4.51); Absolute Neutrophil Count 4.2 X10^3/uL (2.0-7.7); Basophil# 0.01 X10^3/uL; Basophil% 0.2 % (0-1); Eosinophil# 0.24 X10^3/uL; Hematocrit 33.3 % (37-47); Hemoglobin 10.8 g/dL (12.0-15.0); Lymphocyte # 0.92 X10^3/ul (0.83-4.51); Lymphocyte % 15.5 % (19-41); Mean Corp Hgb Conc 32.4 g/dL (32-36); Mean Corpuscular Hgb 32.2 pg (27.0-32.0); Mean Corpuscular Volume 99.4 fL (81-99); Monocyte# 0.52 X10^3/uL; Monocyte% 8.7 % (0-10); NRBC Flagged by Analyzer 0 % (0-5); Neutrophil # 4.24 X10^3/uL (2.7-7.7); Neutrophil % 71.3 % (47-70); Platelet Count 171 K/mm3 (150-450); RBC Distribution Width CV 12.6 % (11.6-14.6); Red Blood Count 3.35 M/mm3 (4.2-5.4)
[2024-01-22 08:14] LABS: Anion Gap 11 (5-15); BUN 7 mg/dL (7-18); BUN/Creat Ratio 17.6 RATIO (10-20); Calcium,Total 8.5 mg/dL (8.5-10.1); Chloride 110 mmol/L (98-107); EST Glomerular Filtration Rate 166 mL/min (>60); Est Glom Filt Rate - Afr Amer 201 mL/min (>60); Estimated Creatinine Clearance 50.13 ml/min; Glucose 125 mg/dL (74-106); Potassium 2.8 mmol/L (3.5-5.1); Sodium Level 142 mmol/L (136-145)
[2024-01-22 08:43] LABS: CPK Total, Creatine Kinase 465 U/L (26-192)
[2024-01-22] MEDS: Aspirin E.C. 81 MG Tablet PO (10:03)
[2024-01-22] MEDS: Potassium Chloride Oral Tablet 20 MEQ PO (10:03)
[2024-01-22] MEDS: Chlorthalidone 50 MG Tablet 25 MG PO (10:03)
[2024-01-22] MEDS: Labetalol 200 MG Tablet PO ×2 (10:04→21:17)
[2024-01-22] MEDS: Losartan Potassium 100 MG Tablet PO (10:04)
[2024-01-22] MEDS: Enoxaparin 40 MG/0.4 ML Syringe SC (10:04)
[2024-01-22] MEDS: Pantoprazole Sodium 40 MG Tablet PO (10:04)
--- NOTE | 2024-01-22 13:00 | PN_ITS ---
Subjective Subjective Patient seen and examined. was by her bedside. She remains confused. She has no active complaints. She is able to tell me her name but does not know her date of or what year is it over the current president is. She is able to tell me she is in the hospital and was still. She is mildly tachycardic. Objective Data Objective Data Vital Signs: Vital Signs Temp Pulse Resp BP Pulse Ox O2 Del Method O2 Flow Rate 98.0 F 104 H 20 H 161/85 H 96 Room Air 2 01/22/24 10:01/22/24 10:01/22/24 10:01/22/24 10:01/22/24 08:20 01/22/24 10:01/21/24 07:00 Oxygen Flow Rate (L/min) 2 Oxygen Delivery Method Room Air Weight: 137 lb 9.095 oz Body Mass Index (BMI) 27.0 Intake & Output: Intake and Output for Last 24 Hours 01/20/24 01/21/24 01/22/24 23:59 23:59 23:59 Intake Total 1999 / 1999 3339.58 / 3339.58 1885.42 / 1885.42 Output Total 300 / 300 1400 / 1400 200 / 200 Balance 1700 / 1700 1939.58 / 1939.58 1685.42 / 1685.42 Lab / Micro Data 01/22/24 07:34 01/22/24 07:34 Labs: Laboratory Results - last 24 hr 01/22/24 07:34: WBC 6.0, RBC 3.35 L, Hgb 10.8 L, Hct 33.3 L, MCV 99.4 H, MCH 32.2 H, MCHC 32.4 D, RDW Std Deviation 46.0 H, RDW Coeff of [place] 12.6, Plt Count 171, MPV 12.0, Immature Gran % (Auto) 0.300, Neut % (Auto) 71.3 H, Lymph % (Auto) 15.5 L, [place] % (Auto) 8.7, Eos % (Auto) 4.0, Baso % (Auto) 0.2, Absolute Neuts (auto) 4.2, Absolute Lymphs (auto) 0.92, Nucleated RBC % 0, Sodium 142, P otassium 2.8 L, Chloride 110 H, Carbon Dioxide 21.0, Anion Gap 11, BUN 7, C reatinine 0.40 L, Estim Creat Clear Calc 50.13, Est GFR (MDRD) Af Amer 201, Est GFR (MDRD) Non-Af 166, BUN/Creatinine Ratio 17.6, Glucose 125 H, Calcium 8.5, T otal Creatine Kinase 465 H Micro: Microbiology 01/20/24 14:05 Urine, Catheterized Urine Culture - Final Coag Negative Staph 01/20/24 12:15 Mucosa - Nose SARS-CoV-2, Influenza & RSV (PCR) - Final Rhythm Strip Rhythm Strip: Sinus Rhythm Rate: 80 Ectopy: None Physical Exam Const alert, average body habitus and well nourished; Negative for oriented x3, no apparent distress or healthy appearing General Appearance: cooperative Orientation / Consciousness: confused HEENT normocephalic, head/scalp atraumatic and moist oral mucous membranes Eyes PERRL, EOMs intact bilaterally and conjunctivae normal Eyes Narrative: No scleral icterus Neck no lymphadenopathy and supple Neck Narrative: Trachea midline, no thyroid enlargement Lymph Lymphatic: no lymphadenopathy noted Resp normal respiratory effort, no retractions, no use of accessory muscles and clear to auscultation bilaterally Resp Narrative: mildly diminished breath sounds bibasally, no wheezes or crackles. On room air. Auscultation: Negative for rales, rhonchi or wheezes Cardio regular rhythm, S1 normal heart sound, S2 normal heart sound, no murmurs, no rub, no gallops and no clicks Cardio Narrative: mildly tachycardic GI normal to inspection, nondistended, normoactive bowel sounds, soft to palpation and non-tender Extremity normal capillary refill, no clubbing, cyanosis or edema and no calf tenderness General Extremity: no tenderness to palpation of joints or extremities Skin No no rashes or lesions noted, No no wounds, No skin turgor normal, no jaundice, no petechiae and no mottling General Skin Exam: no breakdown Neuro CN's II-XII intact bilaterally, moves all extremities and no focal motor deficits Neuro Narrative: Restless Sensorium / Orientation: awake Speech: Negative for speech normal Motor Exam: strength 5/5 throughout and general weakness Psych cooperative Psych Narrative: confused Assessment & Plan Assessment/Plan (1) Toxic metabolic encephalopathy: (2) Medication side effect: PLAN: Plan #Acute encephalopathy * She was brought in because of concerns that she was confused. She had recently started baclofen. * Baclofen discontinued. Patient now alert but still remains confused. Urine tox negative. * Vitals have remained stable. There is no evidence of infection. * PT OT on board. * Ammonia level was also not elevated and CT of the brain showed no acute intracranial pathology. * she still remains confused. Will consult neurology #Lactic acidosis: Resolved #Hypoxia: Resolved. On room air #Rhabdomyolysis: * CPK was 2004 on admission and trending down to 1346. Continue aggressive hydration with IV fluids. C #Closed fracture of the left great toe * Patient's left great toe is swollen and erythematous. * Imaging done showed nondisplaced fracture at the base of the distal phalanx of the left great toe. * Podiatry consulted, still awaiting rec's * #Chronic low back pain: Ultram and baclofen on hold due to her presenting with confusion. #CAD s/p CABG: on aspirin and high intensity statin. #Hypertension: * On valsartan, labetalol and chlorthalidone. * These were held on admission due to encephalopathy. * now resumed. IV hydralazine prn #Hyperlipidemia: On statin #GERD: On PPI. Will resume p.o. Protonix #DVT prophylaxis: Lovenox Disposition: to be determined Charges/Coding Visit Charges Inpatient E&M: 96908 Subs Hosp L2
[2024-01-22] MEDS: Atorvastatin Calcium 40 MG Tablet PO (21:16)
[2024-01-23] MEDS: Lactated Ringers 1,000 ML 125 ML IV (01:54)
[2024-01-23 03:10] VITALS: BP 180/90; PULSE 104; RESP 18; TEMP 36.6; O2SAT 98
[2024-01-23 03:24] VITALS: BP 180/90; PULSE 103
[2024-01-23] MEDS: hydrALAZINE 20 MG/ML Vial 10 MG IV (03:24)
[2024-01-23] MEDS: traMADol 50 MG Tablet 100 MG PO (03:27)
[2024-01-23 05:34] VITALS: BMI 27.1
[2024-01-23 08:00] LABS: Absolute Lymphocyte Count 0.73 X10^3/uL (0.83-4.51); Absolute Neutrophil Count 5.2 X10^3/uL (2.0-7.7); Basophil# 0.01 X10^3/uL; Basophil% 0.1 % (0-1); Eosinophil# 0.22 X10^3/uL; Eosinophils% 3.2 % (0-5); Hematocrit 32.7 % (37-47); Hemoglobin 10.8 g/dL (12.0-15.0); Lymphocyte # 0.73 X10^3/ul (0.83-4.51); Lymphocyte % 10.8 % (19-41); Mean Corpuscular Hgb 32.5 pg (27.0-32.0); Mean Corpuscular Volume 98.5 fL (81-99); Mean Platelet Vol. 11.7 fl (6.2-12.0); Monocyte# 0.62 X10^3/uL; Monocyte% 9.2 % (0-10); NRBC Flagged by Analyzer 0 % (0-5); Neutrophil # 5.17 X10^3/uL (2.7-7.7); Neutrophil % 76.4 % (47-70); Platelet Count 178 K/mm3 (150-450); RBC Distribution Width CV 12.5 % (11.6-14.6); RBC Distribution Width SD 44.5 fl (35.1-43.9); Red Blood Count 3.32 M/mm3 (4.2-5.4); White Blood Count 6.8 K/mm3 (4.4-11.0)
[2024-01-23 08:15] VITALS: BP 160/77; PULSE 99; RESP 17; TEMP 36.7; O2SAT 95
[2024-01-23] MEDS: Aspirin E.C. 81 MG Tablet PO (08:26)
[2024-01-23] MEDS: Losartan Potassium 100 MG Tablet PO (08:26)
[2024-01-23] MEDS: Potassium Chloride Oral Tablet 20 MEQ PO (08:26)
[2024-01-23] MEDS: Pantoprazole Sodium 40 MG Tablet PO (08:26)
[2024-01-23] MEDS: Labetalol 200 MG Tablet PO ×2 (08:26→20:11)
[2024-01-23] MEDS: Chlorthalidone 50 MG Tablet 25 MG PO (08:26)
[2024-01-23 08:34] LABS: Anion Gap 10 (5-15); BUN 5 mg/dL (7-18); Calcium,Total 8.1 mg/dL (8.5-10.1); Chloride 106 mmol/L (98-107); Creatinine, Serum 0.42 mg/dL (0.55-1.02); EST Glomerular Filtration Rate 158 mL/min (>60); Est Glom Filt Rate - Afr Amer 191 mL/min (>60); Estimated Creatinine Clearance 50.28 ml/min; Glucose 131 mg/dL (74-106); Potassium 2.9 mmol/L (3.5-5.1); Sodium Level 140 mmol/L (136-145)
[2024-01-23] MEDS: oxyCODONE 5 MG Tablet PO ×3 (10:35→23:39)
[2024-01-23] MEDS: Acetaminophen 325 MG Tablet 650 MG PO ×3 (10:35→23:39)
--- NOTE | 2024-01-23 12:10 | NEURO.CONS ---
Assessment and Plan: Neuro Assessment/Plan NEHEMIAS VARELA is a 73 F with a past medical history of HTN, back pain, being evaluated by Teleneurology for confusion, in setting of recently starting baclofen. She has taken it before, however unclear what the dosage was compared to now. No other changes in meds, no infection on labwork or other metabolic derrangements. Exam is benign with no focal deficitis, pending imaging well. Ddx is largely medication related, but cannot rule out a stroke. Pending imaging. If imaging normal, likely related to medication effect Plan: - MRI Brain I personally attended this patient and spent a total time of 45minutes evaluating this patient including clinical assessment, review of chart, medical history imaging, and determining appropriate treatment and workup. HPI Consult Data Date of Consult: 06/21/24 HPI Narrative HPI Narrative: NEHEMIAS VARELA, is a 73 F who presented to the emergency department at [facility] on 01/14/2024 due to altered mental status. The patient significant other presented with her to the emergency department and reported yesterday she seemed a little confused prior to bed but during the day yesterday she seemed okay and was able to drive to the store. Evidently a new muscle relaxant was started last evening on her for chronic back issues. He states that she is unable to have back surgery due to the fact that she has significant coronary disease and underwent bypass surgery. It appears that baclofen was started yesterday. Her /significant other is unclear if she took it last night or how much she took. Typically, he states she is alert and oriented x 3 and ambulatory. He does indicate she has had multiple falls within the last week and had 1 yesterday with some bruising on her toe and left thigh as a result. She does have multiple bruises on her bilateral lower extremities proximally and distally as well as on her arms that appear to be in various stages of healing at the time of physical exam. She was unable to participate with any exam and unable to follow commands consistently. She was very agitated in the emergency department to the point where she required IM Geodon. Her did report that he found her on the floor next to the bed this morning and that she has been confused all morning prior to presenting to the emergency department around noon for evaluation. Patient seen and examined. was by her bedside. She remains confused. She has no active complaints. She is able to tell me her name but does not know her date of or what year is it over the current president is. She is able to tell me she is in the hospital and was still. She is mildly tachycardic. Neurologic History: Pt was more confused the first 24 hrs but today is alert and oriented. Pt only periodically sleeping. Thank is not her first time taking baclofen. Currently back to baseline [facility] Medical History Nondisplaced fracture of distal phalanx of left great toe Fracture of distal phalanx of left great toe Medication side effect Toxic metabolic encephalopathy Agitation Acidosis, lactic Closed nondisplaced fracture of left great toe Rhabdomyolysis Preop cardiovascular exam Dyspnea Acute respiratory failure with hypoxia COVID-19 Anemia Chronic pain Facial droop Postoperative atrial fibrillation (11/10/20) Essential hypertension Atherosclerosis of [place] coronary artery of [place] heart without angina pectoris Pinched vertebral nerve Scoliosis GERD (gastroesophageal reflux disease) HLD (hyperlipidemia) History of back pain Home Medications ?Medication ?Instructions ?Recorded ?Last Taken ?Type rosuvastatin 20 mg tablet 20 mg PO QHS cholesterol 12/15/20 07/16/23 History labetalol 200 mg tablet 200 mg PO BID Check with primary 06/12/21 07/17/23 History doctor pantoprazole 40 mg tablet,delayed 40 mg PO DAILY Check with primary 06/12/21 07/17/23 History release (Protonix) doctor valsartan 320 mg tablet 320 mg PO DAILY Check with primary 06/12/21 07/17/23 History doctor tramadol 50 mg tablet 50 mg PO Q8H pain 07/17/23 07/17/23 History gabapentin 300 mg capsule 300 mg PO DAILY 01/20/24 Unknown History aspirin 81 mg tablet,delayed 81 mg PO BREAKFAST #0 tabs 05/31/24 Unknown Rx release Allergy/AdvReac Type Severity Reaction Status Date / Time levofloxacin Allergy Severe leg pain Verified 01/20/24 14:17 amiodarone Allergy mental Verified 01/20/24 14:17 confusion Penicillins Allergy Unknown Verified 01/20/24 14:17 Sulfa (Sulfonamide Allergy Rash Verified 01/20/24 14:17 Antibiotics) ciprofloxacin AdvReac Rash Verified 01/20/24 14:17 lorazepam (From Ativan) AdvReac I went Verified 01/20/24 14:17 crazy Family History Mother Alcoholism Father Hypertension Brother Diabetes Sister Diabetes Hypertension Sister No problems noted. Son Hypertension Other Kidney disease Surgical History History of left heart catheterization (11/03/20) History of appendectomy H/O coronary artery bypass surgery (11/08/20) History of cholecystectomy Social History household members: spouse pets and animals: Yes (cats) Smoking Status: Never smoker alcohol intake: never substance use type: does not use caffeine: Yes Type: carbonated beverages Vital Signs Vital Signs Vital Signs: 01/22/24 17:58 01/22/24 18:02 01/22/24 21:14 Temperature 97.3 F L 97.9 F Temperature Source Temporal Temporal Pulse Rate 100 100 106 H Respiratory Rate 20 H 16 Respiratory Effort Respiratory Depth Respiratory Pattern Blood Pressure 165/82 H 165/82 H 174/93 H Blood Pressure Mean 109 120 Blood Pressure Source Monitor Monitor Blood Pressure Position Semi-Fowlers Semi-Fowlers Blood Pressure Location Left Arm Left Arm Pulse Ox 95 99 Oxygen Delivery Method Room Air Room Air 01/22/24 22:52 01/22/24 23:13 01/23/24 02:00 Temperature 98 F Temperature Source Temporal Pulse Rate 96 Respiratory Rate 16 Respiratory Effort Normal Non-Labored Normal Non-Labored Respiratory Depth Normal Normal Respiratory Pattern Normal Normal Blood Pressure 155/90 H Blood Pressure Mean 111 Blood Pressure Source Monitor Blood Pressure Position Semi-Fowlers Blood Pressure Location Left Forearm Pulse Ox 98 Oxygen Delivery Method Room Air Room Air Room Air 01/23/24 03:10 01/23/24 03:24 01/23/24 08:15 Temperature 97.9 F 98.1 F Temperature Source Temporal Oral Pulse Rate 104 H 103 H 99 Respiratory Rate 18 17 Respiratory Effort Respiratory Depth Respiratory Pattern Blood Pressure 180/90 H 180/90 H 160/77 H Blood Pressure Mean 120 104 Blood Pressure Source Monitor Monitor Blood Pressure Position Semi-Fowlers Semi-Fowlers Blood Pressure Location Left Arm Right Arm Pulse Ox 98 95 Oxygen Delivery Method Room Air Room Air Weight Weight: 62.8 kg Body Mass Index (BMI) 27.1 EEG Results Procedure Details EEG Procedure Details: NEHEMIAS VARELA is a 73 year old F with a past medical history of , who presents for evaluation of Electroencephalogram on DATE at TIME Physical Exam Narrative -? General: Laying comfortably in bed; in no acute distress. -? HENT: Normal oropharynx and mucosa. Normal external appearance of ears and nose. Exophthalmos. -? Neck: Supple, no pain or tenderness -? CV:? No peripheral edema. -? Pulmonary:? Normal respiratory effort. -? Ext: No cyanosis, edema, or deformity -? Skin: No rash. Normal palpation of skin.? -? Musculoskeletal: full range of motion; no joint tenderness. Normal digits and nails by inspection. No clubbing. -? NEURO: -? Mental Status: The patient was alert and oriented to time, place, and person. Normal recent/remote memory, concentration, and general fund of knowledge. -? Language: speech is clear.? Naming, repetition, fluency, and comprehension intact. -? Cranial Nerves: BRAYAN, visual blanchard full, no facial asymmetry, facial sensation intact, hearing intact, tongue midline, no evidence of atrophy or fibrillations. -? Motor: normal bulk, tone, and strength throughout. No pronator drift or satelliting. Upper and lower extremities equal bilaterally. -? Detailed strength exam as performed by the nurse/IKER and witnessed by the physician: R L SA 5 5 EE EF WE WF Sheet Manufacturing Supervisor 5 5 HF KE KF DF PF -? Tone: is normal and bulk is normal -? Sensation- Intact to light touch bilaterally -? Coordination: No dysmetria on [id number], finger follow finger or [id number]. -? Gait- deferred Lab / Micro Data 01/24/24 05:38 01/24/24 05:38 Labs: Laboratory Results - last 24 hr 01/23/24 07:31: WBC 6.8, RBC 3.32 L, Hgb 10.8 L, Hct 32.7 L, MCV 98.5, MCH 32.5 H, MCHC 33.0, RDW Std Deviation 44.5 H, RDW Coeff of [place] 12.5, Plt Count 178, MPV 11.7, Immature Gran % (Auto) 0.300, Neut % (Auto) 76.4 H, Lymph % (Auto) 10.8 L, [place] % (Auto) 9.2, Eos % (Auto) 3.2, Baso % (Auto) 0.1, Absolute Neuts (auto) 5.2, Absolute Lymphs (auto) 0.73 L, Nucleated RBC % 0, Sodium 140, Potassium 2.9 L, Chloride 106, Carbon Dioxide 24.0, Anion Gap 10, BUN 5 L, Creatinine 0.42 L, Estim Creat Clear Calc 50.28, Est GFR (MDRD) Af Amer 191, Est GFR (MDRD) Non-Af 158, BUN/Creatinine Ratio 12.0, Glucose 131 H, Calcium 8.1 L Micro: Microbiology 01/20/24 12:52 Blood Culture (Wb) - Right Forearm Blood Culture - Preliminary No growth in 48 hours. 01/20/24 14:05 Urine, Catheterized Urine Culture - Final Coag Negative Staph Rhythm Strip Rhythm Strip: Sinus Rhythm Rate: 80 Ectopy: None Active Medications Active Medications Active Medications: Current Medications Generic Name Dose Route Start Last Admin Trade Name Freq PRN Reason Stop Dose Admin Acetaminophen 650 mg 01/23/24 10:24 01/23/24 10:35 Acetaminophen 325 Mg Tablet PO 650 mg Q6H PRN PRN Administration Pain 1-10 or Fever Albuterol Sulfate 2.5 mg 01/20/24 18:07 Albuterol 2.5 Mg/3 Ml Vial.Neb. INHALATION Q2H PRN PRN SOB &/OR WHEEZING Aspirin 81 mg 01/22/24 08:00 01/23/24 08:26 Aspirin E.C. 81 Mg Tablet PO 81 mg DAILY@0800 MADYSON Administration Atorvastatin Calcium 40 mg 01/21/24 22:00 01/22/24 21:16 Atorvastatin Calcium 40 Mg Tablet PO 40 mg QHS MADYSON Administration Chlorthalidone 25 mg 01/22/24 10:00 01/23/24 08:26 Chlorthalidone 50 Mg Tablet PO 25 mg DAILY MADYSON Administration Enoxaparin Sodium 40 mg 01/21/24 10:00 01/23/24 10:26 Enoxaparin 40 Mg/0.4 Ml Syringe SC Not Given DAILY MADYSON Glucagon 1 mg 01/21/24 05:45 Glucagon 1 Mg/Ml Syringe IM X1 PRN Hypoglycemia Protocol Hydralazine HCl 10 mg 01/20/24 18:07 01/23/24 03:24 Hydralazine 20 Mg/Ml Vial IV 10 mg Q6H PRN PRN Administration SBP>150 Protocol Sodium Chloride 250 mls @ 15 mls/hr 01/20/24 18:14 IV .[id number] PRN Additional IVPB Infusion Sodium Chloride 250 mls @ 15 mls/hr 01/20/24 18:14 IV .[id number] PRN Saline Flush Dextrose 250 mls @ 0 mls/hr 01/21/24 05:45 01/21/24 06:48 Dextrose 10%-Water IV Infused .Q0M PRN Infusion HYPOGLYCEMIA Protocol As Directed Labetalol HCl 200 mg 01/21/24 22:00 01/23/24 08:26 Labetalol 200 Mg Tablet PO 200 mg BID MADYSON Administration Protocol Losartan Potassium 100 mg 01/22/24 10:00 01/23/24 08:26 Losartan Potassium 100 Mg Tablet PO 100 mg DAILY MADYSON Administration Protocol Ondansetron HCl 4 mg 01/20/24 18:07 Ondansetron 4 Mg/2 Ml Vial IV Q8H PRN PRN NAUSEA/VOMITING Oxycodone HCl 5 mg 01/23/24 10:24 01/23/24 10:35 Oxycodone 5 Mg Tablet PO 5 mg Q6H PRN PRN Administration Pain Score 6-10 Pantoprazole Sodium 40 mg 01/22/24 10:00 01/23/24 08:26 Pantoprazole Sodium 40 Mg Tablet PO 40 mg DAILY MADYSON Administration Potassium Chloride 20 meq 01/22/24 08:00 01/23/24 08:26 Potassium Chloride Oral Tablet 20 Meq PO 20 meq DAILYCM MADYSON Administration Senna/Docusate Sodium 2 tablet 01/20/24 18:07 Senna/Docusate Sodium 1 Tablet PO BID PRN Constipation Sodium Chloride 10 - 40 ml 01/20/24 18:14 0.9% Saline Lock 10 Ml Syringe IV UD PRN SALINE FLUSH
--- NOTE | 2024-01-23 13:01 | PCM.CONS.GEN ---
Assessment & Plan Assessment/Plan (1) Closed nondisplaced fracture of left great toe: QUALIFIERS: Encounter type: initial encounter Phalanx: distal Qualified Code(s): S92.425A - Nondisplaced fracture of distal phalanx of left great toe, initial encounter for closed fracture PLAN: Exam performed. Radiographs reviewed. Conservative treatment indicated. Will plan for protected weightbearing in surgical shoe to left lower extremity for 4 to 8 weeks. Patient will follow-up outpatient setting with me in 1 to 2 weeks upon discharge from the hospital. If any other questions concerns arise please contact me for additional workup otherwise podiatry will sign off. (2) Fracture of distal phalanx of left great toe: (3) Nondisplaced fracture of distal phalanx of left great toe: HPI Consult Data Date of Consult: 01/23/24 HPI Narrative HPI Narrative: NEHEMIAS VARELA, is a 73 F who presents To ICU with acute encephalopathy. Patient had fallen 1 week prior fracture left great toe. Podiatry was consulted for this reason. Patient has minimal pain to left great toe and is able to ambulate without assistance in a surgical shoe to left lower extremity. PENDING SALE TO [facility] Medical History Preop cardiovascular exam Dyspnea Acute respiratory failure with hypoxia COVID-19 Anemia Chronic pain Facial droop Postoperative atrial fibrillation (11/10/20) Essential hypertension Atherosclerosis of [place] coronary artery of [place] heart without angina pectoris Pinched vertebral nerve Scoliosis GERD (gastroesophageal reflux disease) HLD (hyperlipidemia) History of back pain Home Medications ?Medication ?Instructions ?Recorded ?Last Taken ?Type rosuvastatin 20 mg tablet 20 mg PO QHS cholesterol 12/15/20 07/16/23 History aspirin 81 mg tablet,delayed 81 mg PO DAILY@0800 Check with 06/12/21 07/17/23 History release primary doctor labetalol 200 mg tablet 200 mg PO BID Check with primary 06/12/21 07/17/23 History doctor pantoprazole 40 mg tablet,delayed 40 mg PO DAILY Check with primary 06/12/21 07/17/23 History release (Protonix) doctor valsartan 320 mg tablet 320 mg PO DAILY Check with primary 06/12/21 07/17/23 History doctor chlorthalidone 25 mg tablet 25 mg PO DAILY 08/14/21 07/17/23 History potassium chloride 20 mEq 20 meq PO DAILY 11/20/21 07/17/23 History tablet,extended release(part/cryst) (Klor-Con M) tramadol 50 mg tablet 50 mg PO Q8H pain 07/17/23 07/17/23 History baclofen 10 mg tablet 10 mg PO TID 01/20/24 Unknown History gabapentin 300 mg capsule 300 mg PO DAILY 01/20/24 Unknown History Allergy/AdvReac Type Severity Reaction Status Date / Time levofloxacin Allergy Severe leg pain Verified 01/20/24 14:17 amiodarone Allergy mental Verified 01/20/24 14:17 confusion Penicillins Allergy Unknown Verified 01/20/24 14:17 Sulfa (Sulfonamide Allergy Rash Verified 01/20/24 14:17 Antibiotics) ciprofloxacin AdvReac Rash Verified 01/20/24 14:17 lorazepam (From Ativan) AdvReac I went Verified 01/20/24 14:17 crazy Family History Mother Alcoholism Father Hypertension Brother Diabetes Sister Diabetes Hypertension Sister No problems noted. Son Hypertension Other Kidney disease Surgical History History of left heart catheterization (11/03/20) History of appendectomy H/O coronary artery bypass surgery (11/08/20) History of cholecystectomy Social History household members: spouse pets and animals: Yes (cats) Smoking Status: Never smoker alcohol intake: never substance use type: does not use caffeine: Yes Type: carbonated beverages Physical Exam Narrative Vascular: Dorsalis pedis posterior tibial pulse palpable 2 out of 4 bilateral lower extremity compartments. Neurologic: Light touch and protective sensation intact bilateral feet. Dermatologic: Diffuse ecchymosis left great toe. Small focal superficial scab noted to the dorsal lateral aspect of the left great toe. Musculoskeletal: Pain to palpation to the distal phalanx of the left great toe pain with interphalangeal joint range of motion of the left great toe. Lab / Micro Data 01/23/24 07:31 01/23/24 07:31 Labs: Laboratory Results - last 24 hr 01/23/24 07:31: WBC 6.8, RBC 3.32 L, Hgb 10.8 L, Hct 32.7 L, MCV 98.5, MCH 32.5 H, MCHC 33.0, RDW Std Deviation 44.5 H, RDW Coeff of [place] 12.5, Plt Count 178, MPV 11.7, Immature Gran % (Auto) 0.300, Neut % (Auto) 76.4 H, Lymph % (Auto) 10.8 L, [place] % (Auto) 9.2, Eos % (Auto) 3.2, Baso % (Auto) 0.1, Absolute Neuts (auto) 5.2, Absolute Lymphs (auto) 0.73 L, Nucleated RBC % 0, Sodium 140, Potassium 2.9 L, Chloride 106, Carbon Dioxide 24.0, Anion Gap 10, BUN 5 L, Creatinine 0.42 L, Estim Creat Clear Calc 50.28, Est GFR (MDRD) Af Amer 191, Est GFR (MDRD) Non-Af 158, BUN/Creatinine Ratio 12.0, Glucose 131 H, Calcium 8.1 L Micro: Microbiology 01/20/24 12:52 Blood Culture (Wb) - Right Forearm Blood Culture - Preliminary No growth in 48 hours. 01/20/24 14:05 Urine, Catheterized Urine Culture - Final Coag Negative Staph Rhythm Strip Rhythm Strip: Sinus Rhythm Rate: 80 Ectopy: None
--- NOTE | 2024-01-23 13:33 | PN_ITS ---
Subjective Subjective Patient seen and examined. She had no active complaints. She is alert and oriented and communicative today. Review of systems otherwise negative. Objective Data Objective Data Vital Signs: Vital Signs Temp Pulse Resp BP Pulse Ox O2 Del Method O2 Flow Rate 98.1 F 99 17 160/77 H 95 Room Air 2 01/23/24 08:15 01/23/24 08:15 01/23/24 08:15 01/23/24 08:15 01/23/24 08:15 01/23/24 08:15 01/21/24 07:00 Oxygen Flow Rate (L/min) 2 Oxygen Delivery Method Room Air Weight: 138 lb 7.205 oz Body Mass Index (BMI) 27.1 Intake & Output: Intake and Output for Last 24 Hours 01/21/24 01/22/24 01/23/24 23:59 23:59 23:59 Intake Total 3339.58 / 3339.58 2756.25 / 2756.25 2112.92 / 2112.92 Output Total 1400 / 1400 1700 / 1700 1100 / 1100 Balance 1939.58 / 1939.58 1056.25 / 1056.25 1012.92 / 1012.92 Lab / Micro Data 01/23/24 07:31 01/23/24 07:31 Labs: Laboratory Results - last 24 hr 01/23/24 07:31: WBC 6.8, RBC 3.32 L, Hgb 10.8 L, Hct 32.7 L, MCV 98.5, MCH 32.5 H, MCHC 33.0, RDW Std Deviation 44.5 H, RDW Coeff of [place] 12.5, Plt Count 178, MPV 11.7, Immature Gran % (Auto) 0.300, Neut % (Auto) 76.4 H, Lymph % (Auto) 10.8 L, [place] % (Auto) 9.2, Eos % (Auto) 3.2, Baso % (Auto) 0.1, Absolute Neuts (auto) 5.2, Absolute Lymphs (auto) 0.73 L, Nucleated RBC % 0, Sodium 140, P otassium 2.9 L, Chloride 106, Carbon Dioxide 24.0, Anion Gap 10, BUN 5 L, C reatinine 0.42 L, Estim Creat Clear Calc 50.28, Est GFR (MDRD) Af Amer 191, Est GFR (MDRD) Non-Af 158, BUN/Creatinine Ratio 12.0, Glucose 131 H, Calcium 8.1 L Micro: Microbiology 01/20/24 12:52 Blood Culture (Wb) - Right Forearm Blood Culture - Preliminary No growth in 48 hours. 01/20/24 14:05 Urine, Catheterized Urine Culture - Final Coag Negative Staph 01/20/24 12:15 Mucosa - Nose SARS-CoV-2, Influenza & RSV (PCR) - Final Rhythm Strip Rhythm Strip: Sinus Rhythm Rate: 80 Ectopy: None Physical Exam Const alert, oriented x3, no apparent distress, average body habitus and well nourished General Appearance: cooperative and uncooperative Orientation / Consciousness: confused and disoriented HEENT normocephalic, head/scalp atraumatic and moist oral mucous membranes Eyes PERRL, EOMs intact bilaterally and conjunctivae normal Neck no lymphadenopathy and supple Neck Narrative: Trachea midline, no thyroid enlargement Lymph Lymphatic: no lymphadenopathy noted Resp normal respiratory effort, normal air movement, no retractions, no use of accessory muscles and clear to auscultation bilaterally Cardio regular rate, regular rhythm, S1 normal heart sound, S2 normal heart sound, no murmurs, no rub, no gallops and no clicks Cardio Narrative: mildly tachycardic GI normal to inspection, nondistended, normoactive bowel sounds, soft to palpation and non-tender Extremity normal capillary refill, no clubbing, cyanosis or edema and no calf tenderness General Extremity: no tenderness to palpation of joints or extremities Skin No no rashes or lesions noted, No no wounds and No skin turgor normal Skin Narrative: Scattered bilateral lower extremity ecchymotic changes, scattered bilateral upper extremity ecchymotic changes, extensive ecchymosis left great toe area General Skin Exam: no breakdown Neuro CN's II-XII intact bilaterally, moves all extremities and no focal motor deficits Sensorium / Orientation: awake Speech: Negative for speech normal Motor Exam: strength 5/5 throughout and general weakness Psych cooperative Appearance: appropriate Assessment & Plan Assessment/Plan (1) Toxic metabolic encephalopathy: (2) Medication side effect: PLAN: Plan #Acute encephalopathy * She was brought in because of concerns that she was confused. She had recently started baclofen. * Baclofen discontinued. Patient now alert but still remains confused. Urine tox negative. * Vitals have remained stable. There is no evidence of infection. * PT OT on board. * Ammonia level was also not elevated and CT of the brain showed no acute intracranial pathology. * awaiting neurology evaluation * she is much more alert and oriented; she is alert and oriented x 3 today. #Lactic acidosis: Resolved #Hypoxia: Resolved. On room air #Rhabdomyolysis: * CPK was 2004 on admission and trending down to 1346. Continue aggressive hydration with IV fluids. #Closed fracture of the left great toe * Patient's left great toe is swollen and erythematous. * Imaging done showed nondisplaced fracture at the base of the distal phalanx of the left great toe. * Podiatry consulted, yet still awaiting rec's * #Chronic low back pain: Ultram and baclofen on hold due to her presenting with confusion. #CAD s/p CABG: on aspirin and high intensity statin. #Hypertension: * On valsartan, labetalol and chlorthalidone. * These were held on admission due to encephalopathy. * now resumed. IV hydralazine prn #Hyperlipidemia: On statin #GERD: On PPI. Will resume p.o. Protonix #DVT prophylaxis: Lovenox Disposition: to be determined Charges/Coding Visit Charges Inpatient E&M: 16923 Subs Hosp L2
--- NOTE | 2024-01-23 13:43 | MRI_ITS ---
EXAM: MR HEAD WITHOUT AND WITH INTRAVENOUS CONTRAST CLINICAL INDICATION: acute encephalopathy TECHNIQUE: Multiplanar and multisequence MR images of the brain were obtained without and with intravenous contrast. CONTRAST: 15 mL of IV Clariscan. COMPARISON: MRI brain without contrast 02/22/2021. FINDINGS: BRAIN AND EXTRA-AXIAL SPACES: No diffusion restriction to suspect acute or subacute ischemic infarct throughout the brain parenchyma. Multiple T2 FLAIR hyperintensity foci in the white matter posteriorly sutures are chronic white matter ischemic changes. Following IV contrast administration, there are no abnormally enhancing lesions intra-axially and extra-axially. Normal ventricles and cisterns. No intra- or extra-axial hemorrhage. No intracranial mass or mass effect. Posterior fossa structures are unremarkable. No hydrocephalus. SELLA: Unremarkable. Normal sella turcica, pituitary gland, infundibular stalk, optic chiasm and hypothalamus. AUDITORY SYSTEM: Unremarkable. The internal auditory canals are patent. BONES/JOINTS: Unremarkable. No discrete lytic or blastic abnormalities. SINUSES: Unremarkable as visualized. Clear. MASTOID AIR CELLS: Unremarkable as visualized. Clear. ORBITS: Unremarkable as visualized. Both globes, extraocular muscles, optic nerves and retrobulbar fat appear unremarkable. VASCULATURE: Unremarkable as visualized. Normal flow voids in the major intracranial circulation. MRI/Brain W/WO Contrast IMPRESSION: 1. No MRI evidence of acute or subacute ischemic infarct or acute intracranial abnormality. 2. Multiple chronic white matter ischemic changes in both cerebral hemispheres are unchanged. 3. No abnormally enhancing lesions intra-axially and extra-axially. Electronically Signed: Nirmal Brenner MD at 15:48 EDT ,
[2024-01-23 14:09] LABS: CPK Total, Creatine Kinase 182 U/L (26-192)
[2024-01-23 15:39] VITALS: BP 136/72; PULSE 96; RESP 16; TEMP 36.9; O2SAT 94
--- NOTE | 2024-01-23 16:05 | CASEMGMT ---
ANG ZHANG NOTE: ANG ZHANG to room. Pt sitting up in chair. Pt is alert/oriented now. Pt denies having any discharge needs/concerns at this time. She states she does not think she will end up doing OP therapy @ [facility] d/t the co-pay, but does belong to [facility] and knows what to do, as she did work w/the therapist some already. Chris TRIMBLE RN, CM
[2024-01-23 20:00] VITALS: BP 121/100; PULSE 100; RESP 17; TEMP 37; O2SAT 94
[2024-01-23] MEDS: Atorvastatin Calcium 40 MG Tablet PO (20:12)
[2024-01-24 02:00] VITALS: BP 148/60; PULSE 100; RESP 20; TEMP 36.9; O2SAT 96
[2024-01-24 05:17] VITALS: BMI 27.5
[2024-01-24 06:14] LABS: Absolute Lymphocyte Count 0.75 X10^3/uL (0.83-4.51); Basophil# 0.01 X10^3/uL; Basophil% 0.2 % (0-1); Eosinophil# 0.36 X10^3/uL; Eosinophils% 6.1 % (0-5); Lymphocyte # 0.75 X10^3/ul (0.83-4.51); Lymphocyte % 12.8 % (19-41); Mean Corp Hgb Conc 32.4 g/dL (32-36); Mean Corpuscular Hgb 32.2 pg (27.0-32.0); Mean Corpuscular Volume 99.4 fL (81-99); Mean Platelet Vol. 12.2 fl (6.2-12.0); Monocyte# 0.71 X10^3/uL; Monocyte% 12.1 % (0-10); NRBC Flagged by Analyzer 0 % (0-5); Neutrophil # 4.02 X10^3/uL (2.7-7.7); Neutrophil % 68.5 % (47-70); Platelet Count 204 K/mm3 (150-450); RBC Distribution Width CV 12.8 % (11.6-14.6); RBC Distribution Width SD 46.4 fl (35.1-43.9); Red Blood Count 3.42 M/mm3 (4.2-5.4); White Blood Count 5.9 K/mm3 (4.4-11.0)
[2024-01-24 07:30] LABS: Anion Gap 6 (5-15); BUN 5 mg/dL (7-18); BUN/Creat Ratio 8.9 RATIO (10-20); Calcium,Total 8.8 mg/dL (8.5-10.1); Chloride 105 mmol/L (98-107); Creatinine, Serum 0.56 mg/dL (0.55-1.02); EST Glomerular Filtration Rate 112 mL/min (>60); Est Glom Filt Rate - Afr Amer 135 mL/min (>60); Estimated Creatinine Clearance 50.59 ml/min; Glucose 153 mg/dL (74-106); Potassium 3.3 mmol/L (3.5-5.1); Sodium Level 138 mmol/L (136-145)
[2024-01-24 08:00] VITALS: BP 144/78; PULSE 94; RESP 22; TEMP 36.6; O2SAT 98
[2024-01-24] MEDS: Pantoprazole Sodium 40 MG Tablet PO (09:05)
[2024-01-24] MEDS: Aspirin E.C. 81 MG Tablet PO (09:05)
[2024-01-24] MEDS: Labetalol 200 MG Tablet PO (09:05)
[2024-01-24] MEDS: Potassium Chloride Oral Tablet 20 MEQ PO (09:05)
[2024-01-24] MEDS: Losartan Potassium 100 MG Tablet PO (09:05)
[2024-01-24] MEDS: Enoxaparin 40 MG/0.4 ML Syringe SC (09:05)
[2024-01-24] MEDS: Chlorthalidone 50 MG Tablet 25 MG PO (09:06)
[2024-01-24] MEDS: Acetaminophen 325 MG Tablet 650 MG PO (09:11)
[2024-01-24] MEDS: oxyCODONE 5 MG Tablet PO (09:11)
--- NOTE | 2024-01-24 11:17 | DS.PCM_ITS ---
Providers Date of Admission: 01/20/24 Date of Discharge: 01/24/24 Primary Care Physician: Dr. Chadd Walton MD Consultations 01/20/24 18:07 Consult: Podiatry Routine Consulting Provider: Nehemiah Callejas Reason for Consult: L toe fracture EMERGENT Consult: No Notified: Yes Date Notified: 01/20/24 Time Notified: 16:56 Method of Notification: Text 01/22/24 13:14 Consult: Tele-Neurology Routine Consulting Provider: [facility] Reason for Consult: acute encephalopathy, etiology is not clear EMERGENT Consult: No Notified: Yes Date Notified: 01/22/24 Time Notified: 13:14 Method of Notification: Answering Service Nursing Unit Staff Notify [facility] of Tele-Neurology Consult: Yes Reason For Visit: ENCEPHALOPATHY, AGITATION, LACTIC ACIDOSIS Diagnosis Discharge Diagnosis (1) Toxic metabolic encephalopathy: Status: Acute Code(s): G92.8 - Other toxic encephalopathy (2) Medication side effect: Status: Acute Code(s): T88.7XXA - Unspecified adverse effect of drug or medicament, initial encounter Plan #Acute encephalopathy * She was brought in because of concerns that she was confused. She had recently started baclofen. * Baclofen discontinued. Patient now alert but still remains confused. Urine tox negative. * Vitals have remained stable. There is no evidence of infection. * PT OT on board. * Ammonia level was also not elevated and CT of the brain showed no acute intracranial pathology. * awaiting neurology evaluation * she is much more alert and oriented; she is alert and oriented x 3 today. #Lactic acidosis: Resolved #Hypoxia: Resolved. On room air #Rhabdomyolysis: * CPK was 2004 on admission and trending down to 1346. Continue aggressive hydration with IV fluids. #Closed fracture of the left great toe * Patient's left great toe is swollen and erythematous. * Imaging done showed nondisplaced fracture at the base of the distal phalanx of the left great toe. * Podiatry consulted, yet still awaiting rec's * #Chronic low back pain: Ultram and baclofen on hold due to her presenting with confusion. #CAD s/p CABG: on aspirin and high intensity statin. #Hypertension: * On valsartan, labetalol and chlorthalidone. * These were held on admission due to encephalopathy. * now resumed. IV hydralazine prn #Hyperlipidemia: On statin #GERD: On PPI. Will resume p.o. Protonix #DVT prophylaxis: Lovenox Disposition: to be determined Medications at Discharge Home Medications rosuvastatin 20 mg tablet 20 mg PO QHS cholesterol 12/15/20 aspirin 81 mg tablet,delayed release 81 mg PO DAILY@0800 Check with primary doctor 06/12/21 labetalol 200 mg tablet 200 mg PO BID Check with primary doctor 06/12/21 pantoprazole 40 mg tablet,delayed release (Protonix) 40 mg PO DAILY Check with primary doctor 06/12/21 valsartan 320 mg tablet 320 mg PO DAILY Check with primary doctor 06/12/21 chlorthalidone 25 mg tablet 25 mg PO DAILY 08/14/21 potassium chloride 20 mEq tablet,extended release(part/cryst) (Klor-Con M) 20 meq PO DAILY 11/20/21 tramadol 50 mg tablet 50 mg PO Q8H pain 07/17/23 gabapentin 300 mg capsule 300 mg PO DAILY 01/20/24 Hospital Course Operations None Procedures None Summary of Care Provided Minutes Spent on Discharge: 55 Hospital Course: Patient is a 73 y/o female with a PMH as outlined who was admitted via the ED on 01/24/2024 with a complaint of altered mental status. Her significant other that had reported that she has seemed a bit confused the day before admission but subsequently was okay and was able to carry out activities of daily living. She had been started on baclofen the night before she came into the hospital for chronic back issues. She had also had multiple falls within the past week before admission sustained some bruising on her lower extremities. On admission she was quite agitated in the ED and had to be given IM Geodon in the ED. Talk screen was negative and serum alcohol level was less than 3. Ammonia level was also not elevated. EKG showed no acute ST changes and CT of the brain showed no acute intracranial pathology. CT of the abdomen and pelvis showed distended bladder and intrahepatic bile ducts consistent with prior cholecystectomy. Chest x-ray showed mild volume overload and a 1.1 cm nodule in the peripheral aspect of the right upper lobe and foot x-ray done showed a nondisplaced fracture at the base of the distal phalanx of the great toe with soft tissue swelling. She was admitted and managed for acute encephalopathy of unclear etiology but thought to be possibly due to baclofen. She was initially admitted to the ICU. Her confusion gradually resolved and she came back to her baseline mental status when she was alert and oriented x 3. Neurology was consulted and MRI of the brain done also showed no acute intracranial pathology and only showed chronic white matter changes. Her baclofen was discontinued. Podiatry was consulted about the closed fracture of her left great toe NPDR reviewed the recommended conservative management and she is to follow-up with podiatry on outpatient basis. Patient main stable and was discharged home on 01/24/2024. She is follow-up with her primary care doctor within 1 to 2 weeks. As stated baclofen was discontinued. Patient seen and examined prior to discharge. She had no active complaints and had an uneventful night. Review of systems otherwise negative. Labs and vitals reviewed. Home medication reviewed and reconciled. Physical Exam Const alert, oriented x3, no apparent distress, average body habitus and well nourished; Negative for healthy appearing General Appearance: cooperative and comfortable Orientation / Consciousness: awake HEENT normocephalic, head/scalp atraumatic, hearing grossly normal bilaterally and moist oral mucous membranes Mouth: oral and palatal mucosa normal Eyes PERRL, EOMs intact bilaterally and conjunctivae normal Neck no lymphadenopathy and supple Neck Narrative: Trachea midline, no thyroid enlargement Lymph Lymphatic: no lymphadenopathy noted Resp normal respiratory effort, normal air movement, no retractions, no use of accessory muscles and clear to auscultation bilaterally Auscultation: Negative for rales, rhonchi or wheezes Cardio regular rate, regular rhythm, S1 normal heart sound, S2 normal heart sound, no murmurs, no rub, no gallops and no clicks GI normal to inspection, nondistended, normoactive bowel sounds, soft to palpation and non-tender Extremity Extremity Narrative: left great toe mildly swollen, erythematous, due to closed fracture of left great toe General Extremity: no tenderness to palpation of joints or extremities Skin No no rashes or lesions noted, No no wounds, No skin turgor normal, no jaundice, no petechiae and no mottling General Skin Exam: no breakdown Neuro CN's II-XII intact bilaterally, moves all extremities and no focal motor deficits Sensorium / Orientation: awake Speech: Negative for speech normal Motor Exam: strength 5/5 throughout and general weakness Psych cooperative Appearance: appropriate Weight / BMI Weight Weight: 140 lb 3.424 oz Body Mass Index (BMI) 27.5 ABG / Lab / Microbiology Data 01/24/24 05:38 01/24/24 05:38 Laboratory: Laboratory Results - last 24 hr 01/23/24 07:31: Total Creatine Kinase 182 01/24/24 05:38: WBC 5.9, RBC 3.42 L, Hgb 11.0 L, Hct 34.0 L, MCV 99.4 H, MCH 32.2 H, MCHC 32.4, RDW Std Deviation 46.4 H, RDW Coeff of [place] 12.8, Plt Count 204, MPV 12.2 H, Immature Gran % (Auto) 0.300, Neut % (Auto) 68.5, Lymph % (Auto) 12.8 L, [place] % (Auto) 12.1 H, Eos % (Auto) 6.1 H, Baso % (Auto) 0.2, Absolute Neuts (auto) 4.0, Absolute Lymphs (auto) 0.75 L, Nucleated RBC % 0, Sodium 138, Potassium 3.3 L, Chloride 105, Carbon Dioxide 27.0, Anion Gap 6, BUN 5 L, Creatinine 0.56, Estim Creat Clear Calc 50.59, Est GFR (MDRD) Af Amer 135, Est GFR (MDRD) Non-Af 112, BUN/Creatinine Ratio 8.9 L, Glucose 153 H, Calcium 8.8 Microbiology: Microbiology 01/20/24 12:52 Blood Culture (Wb) - Right Forearm Blood Culture - Preliminary No growth in 48 hours. 01/20/24 14:05 Urine, Catheterized Urine Culture - Final Coag Negative Staph 01/20/24 12:15 Mucosa - Nose SARS-CoV-2, Influenza & RSV (PCR) - Final Radiography Diagnostic Testing: Radiology Impression Brain MRI 01/23/24 13:43 IMPRESSION: 1. No MRI evidence of acute or subacute ischemic infarct or acute intracranial abnormality. 2. Multiple chronic white matter ischemic changes in both cerebral hemispheres are unchanged. 3. No abnormally enhancing lesions intra-axially and extra-axially. Electronically Signed: Nirmal Brenner MD at 15:48 EDT , D/C Instructions Discharge Diet: Low fat / Low cholesterol Discharge Activity: Return to Normal Activity Weight Bearing Status: Weight bearing as tolerated (protected weightbearing in surgical shoe) Call your doctor if you observe: Fever of 101 or Higher, Shortness of breath, Dizziness, Swelling in the ankles, Chest pain, Increased palpitations (irregular heartbeat) and Uncontrolled pain Meaningful Use Info Meaningful Use Meaningful Use Diagnoses (Choose all that apply): None applicable Ischemic Stroke Statin Dosing Therapy Reference: STATIN DOSE THERAPY REFERENCE: * Patients > 75 years receive moderate or high dose statin therapy. * Patients 75 years or YOUNGER should receive HIGH intensity statin dose unless contraindicated. You will be required to document reason for non-treatment if statin daily dose does not meet guidelines. HIGH DOSE STATIN THERAPY DAILY Atorvastatin > than or = to 40 mg Rosuvastatin > than or = to 20 mg Amlodipine + Atorvastatin > than or = to 2.5/40 mg Ezetimibe + Simvastatin 10/80 mg Simvastatin 80mg Discharge Plan Admission Admit Date/Time: 01/20/24 16:51 Primary Reason for Your Visit: altered mental status Attending Provider: Juana Jin Primary Care Provider: Chadd Walton Consulting Providers: Varsha Sales; Nehemiah Callejas; Deshawn Land; Paul Petersen; Shanice Castañeda; Shameka Bear; Jillian Wallace; Daryl Eckert; Evelina Bose; Rafi Forde; Armani Matthew; Reese Pineda; Ira Ervin; Stewart Tierney; Reyna Ghosh; Bettina Curtis; Alex Vasquez; Julio Domínguez; Maixme Rocha; Walt Aviles; Carmencita Sales; Josselin Cheung Instructions Patient Instructions: ED Confusion, Altered LOC Ch Discharge Orders/Prescriptions Prescriptions: Continued chlorthalidone 25 mg tablet 25 mg PO DAILY potassium chloride [Klor-Con M20] 20 mEq tablet,ER particles/crystals 20 meq PO DAILY rosuvastatin 20 mg Tablet 20 mg PO QHS labetalol 200 mg tablet 200 mg PO BID valsartan 320 mg tablet 320 mg PO DAILY Patient Comments: TAKE 1 TABLET BY MOUTH EVERY DAY aspirin 81 mg tablet,delayed release (DR/EC) 81 mg PO DAILY@0800 pantoprazole [Protonix] 40 mg tablet,delayed release (DR/EC) 40 mg PO DAILY tramadol 50 mg tablet 50 mg PO Q8H Patient Comments: today was last dose for pt gabapentin 300 mg capsule 300 mg PO DAILY Discontinued baclofen 10 mg tablet 10 mg PO TID Referrals / Follow Up: Nehemiah Callejas DPM [Med Staff - Active Staff] - Within 2 Weeks Chadd Walton MD [Primary Care Provider] - Within 1 Week Disposition Disposition (needs filled in before D/C Order can be placed): Home, Self Care Charges/Coding Visit Charges Inpatient E&M: 09137 Disch Hosp >30min
== END 2024-01-24 12:15 | disposition home or self-care (01) | DRG 92 ==
LOC: ED 14:35 → ICU 16:12
PROVIDERS: Admitting Provider Internal Medicine; Emergency Provider Emergency Medicine; PCP Family Medicine; Visit Provider Student in an Organized Health Care Education/Training Program
DX: G92.8 Other toxic encephalopathy (principal); M62.82 Rhabdomyolysis; E87.20 Acidosis, unspecified; I10 Essential (primary) hypertension; S92.425A Nondisplaced fracture of distal phalanx of left great toe, initial encounter for closed fracture; I25.10 Atherosclerotic heart disease of native coronary artery without angina pectoris; E78.5 Hyperlipidemia, unspecified; M54.50 Low back pain, unspecified; K21.9 Gastro-esophageal reflux disease without esophagitis; W08.XXXA Fall from other furniture, initial encounter; E86.0 Dehydration; T42.8X5A Adverse effect of antiparkinsonism drugs and other central muscle-tone depressants, initial encounter; G89.29 Other chronic pain; R09.02 Hypoxemia; R45.1 Restlessness and agitation; R00.0 Tachycardia, unspecified; Z11.52 Encounter for screening for COVID-19; Z79.82 Long term (current) use of aspirin; Z79.899 Other long term (current) drug therapy; Z86.16 Personal history of COVID-19
CPT/HCPCS: 36415; 36600; 70450; 70553; 71045; 73630; 74176; 80048; 80053; 80307; 80329; 81001; 82077; 82140; 82550; 82803; 82962; 83605; 83735; 83880; 84100; 84443; 84484; 85025; 85610; 85730; 87040; 87086; 87088; 87631; 93005; 94668; 94762; 97162; 97166; 99285; A9575; J7030; J7120; A4216; G0480; J3486

== ENCOUNTER 2024-05-29 19:47 | Observation (INO) | payer MEDICARE, SELFPAY ==
[2024-05-29] VITALS (10 sets, daily range): BP systolic 102–122; BP diastolic 50–53; PULSE 59–71; RESP 15–19; TEMP 36.8; O2SAT 80–98; BMI 26.4
--- NOTE | 2024-05-29 20:12 | EKG12_ITS ---
Test Reason : CP Blood Pressure : */* mmHG Vent. Rate : 66 BPM Atrial Rate : 66 BPM P-R Int : 174 ms QRS Dur : 92 ms QT Int : 432 ms P-R-T Axes : 13 -9 35 degrees QTcB Int : 452 ms Normal sinus rhythm Minimal voltage criteria for LVH, may be normal variant ( R in aVL ) Borderline ECG Confirmed by ABE BROOKS, GERALD ([id number]), editor continuity and script JAYLA FIELDS ([id number]) on 06/01/2024 6:12:34 AM Referred By: NIYA Confirmed By: GERALD FISH MD
--- NOTE | 2024-05-29 20:14 | ED.VIS.CHEST ---
HPI History of Present Illness Chief Complaint: Chest Pain [facility] Medical History Preop cardiovascular exam Dyspnea Acute respiratory failure with hypoxia COVID-19 Anemia Chronic pain Facial droop Postoperative atrial fibrillation (11/10/20) Essential hypertension Atherosclerosis of [place] coronary artery of [place] heart without angina pectoris Pinched vertebral nerve Scoliosis GERD (gastroesophageal reflux disease) HLD (hyperlipidemia) History of back pain Home Medications ?Medication ?Instructions ?Recorded ?Last Taken ?Type rosuvastatin 20 mg tablet 20 mg PO QHS cholesterol 12/15/20 07/16/23 History aspirin 81 mg tablet,delayed 81 mg PO DAILY@0800 Check with 06/12/21 07/17/23 History release primary doctor labetalol 200 mg tablet 200 mg PO BID Check with primary 06/12/21 07/17/23 History doctor pantoprazole 40 mg tablet,delayed 40 mg PO DAILY Check with primary 06/12/21 07/17/23 History release (Protonix) doctor valsartan 320 mg tablet 320 mg PO DAILY Check with primary 06/12/21 07/17/23 History doctor chlorthalidone 25 mg tablet 25 mg PO DAILY 08/14/21 07/17/23 History potassium chloride 20 mEq 20 meq PO DAILY 11/20/21 07/17/23 History tablet,extended release(part/cryst) (Klor-Con M) tramadol 50 mg tablet 50 mg PO Q8H pain 07/17/23 07/17/23 History gabapentin 300 mg capsule 300 mg PO DAILY 01/20/24 Unknown History Allergy/AdvReac Type Severity Reaction Status Date / Time levofloxacin Allergy Severe leg pain Verified 01/20/24 14:17 amiodarone Allergy mental Verified 01/20/24 14:17 confusion Penicillins Allergy Unknown Verified 01/20/24 14:17 Sulfa (Sulfonamide Allergy Rash Verified 01/20/24 14:17 Antibiotics) ciprofloxacin AdvReac Rash Verified 01/20/24 14:17 lorazepam (From Ativan) AdvReac I went Verified 01/20/24 14:17 crazy Family History Mother Alcoholism Father Hypertension Brother Diabetes Sister Diabetes Hypertension Sister No problems noted. Son Hypertension Other Kidney disease Surgical History History of left heart catheterization (11/03/20) History of appendectomy H/O coronary artery bypass surgery (11/08/20) History of cholecystectomy Social History household members: spouse pets and animals: Yes (cats) Smoking Status: Never smoker alcohol intake: never substance use type: does not use caffeine: Yes Type: carbonated beverages EXAM Physical Exam Const Vital Signs: 05/29/24 19:51 05/29/24 20:12 05/29/24 20:37 Temperature 98.2 F Temperature Source Oral Pulse Rate 71 63 Respiratory Rate 19 H Respiratory Effort Respiratory Depth Respiratory Pattern Blood Pressure 122/52 H Blood Pressure Mean 75 Pulse Ox 96 94 96 Oxygen Delivery Method Room Air Room Air Oxygen Flow Rate (L/min) 05/29/24 20:41 05/29/24 20:42 05/29/24 20:59 Temperature Temperature Source Pulse Rate Respiratory Rate Respiratory Effort Normal Normal Respiratory Depth Normal Respiratory Pattern Normal Blood Pressure Blood Pressure Mean Pulse Ox 80 Oxygen Delivery Method Room Air Room Air Oxygen Flow Rate (L/min) 05/29/24 21:00 05/29/24 22:00 05/29/24 22:55 Temperature Temperature Source Pulse Rate 67 59 L 61 Respiratory Rate 15 18 18 Respiratory Effort Respiratory Depth Respiratory Pattern Blood Pressure 116/51 L 102/50 L 106/53 L Blood Pressure Mean 72 67 70 Pulse Ox 97 98 91 Oxygen Delivery Method Nasal Cannula Room Air Room Air Oxygen Flow Rate (L/min) 2 MDM MDM MDM Narrative Medical decision making narrative: HISTORY OF PRESENT ILLNESS: 73-year-old female history of CAD, hypertension, hyperlipidemia, A-fib, CABG x 5, presents with chest pain shortness of breath. The patient states symptoms began last day. She notes midsternal pressure-like pain does not radiate. She denies any lower extremity edema. Notes pain is worse with exertion. Also endorses shortness of breath. Notes a cough as well. Denies sick contacts. Denies fever. Denies diarrhea but does note a couple of episodes of nonbloody nonbilious vomitus. The patient denies recent surgery in the last 4 weeks or immobilization in the last 3 days, denies previous diagnosis of DVT or PE, hemoptysis, unilateral leg swelling or malignancy with treatment the last 6 months or palliative. No estrogen use noted. Patient denies sudden onset of pain, no tearing sensation, no migratory symptoms, no new numbness, weakness or loss of sensation. Patient denies family history or personal history of Connective tissue disorders (Marfan's Syndrome, Julieta Danlos etc) REVIEW OF SYSTEMS: Pertinent positives: Chest pain, shortness of breath, epigastric Jj pain, nausea vomiting, cough Pertinent negatives: Syncope, fever PHYSICAL EXAM: Nursing triage notes reviewed, Vital signs reviewed Constitutional: please see mdm HENT: MMM Eyes: Pupils equal round and reactive to light, Extraocular muscles intact Neck: No stridor, no JVD, full neck ROM Lungs: Clear to auscultation, No wheezing or rales. No increased work of breathing, no conversational dyspnea, no accessory muscle use, no nasal flaring. No respiratory distress noted Heart: Regular rate and rhythm, No murmurs, No rubs and No gallops, 2+ distal pulses (radial, femoral, posterior tibial) in all extremities Abdomen: Soft, there is no tenderness, rigidity, rebound or guarding, no obvious peritoneal signs, no palpable pulsatile abdominal masses, no auscultated abdominal bruit : No CVAT Extremities: No edema Neuro: No new focal neurological deficits, cranial nerves II through XII intact, 5/5 strength in all present extremities. Intact sensation to light touch in all present extremities, 2+ reflexes bilateral patella tendons. Skin: No rash or lesions noted MEDICAL DECISION MAKING: Chief Complaint: Chest pain, shortness of External records reviewed: Reviewed prior echocardiogram from 2021 shows ejection fraction of 65% with stage I diastolic dysfunction. Also reviewed prior left heart cath. Also reviewed prior cardiovascular outpatient visit. Factors affecting care: As per HPI Social determinants of health: none History obtained from others: none Consults: Cardiology, internal medicine [facility] Narrative: The patient was initially hemodynamically stable, afebrile, nontoxic-appearing. Exam without focal cardiopulmonary abnormalities. No pulse deficits. No stigmata of CHF or VTE. I considered the following differential diagnosis: ACS, anemia, arrhythmia, electrolyte disturbance, CHF, PE, dissection, pneumonia, pneumothorax, pericarditis. Protocol orders were placed in triage including BMP, CBC, troponin, chest x-ray, EKG ALL IMAGES (IF OBTAINED) HAVE BEEN PERSONALLY REVIEWED AND INTERPRETED BY MYSELF. EKG with normal sinus rhythm, left axis deviation, normal intervals, QTc 452, no STEMI CBC with no leukocytosis to suggest systemic inflammation, mild anemia, no thrombocytopenia CBC with renal insufficiency, no severe electrolyte abnormalities, no metabolic acidosis or endorgan hypoperfusion LFTs without signs of significant elevation liver enzymes, obstructive hepatobiliary disease, baseline elevated alkaline phosphatase Initial troponin 6, second troponin 8. Negative for acute myocardial schema Lipase is wnl indicating no pancreatic inflammation. COVID/flu/RSV negative Upon reassessment patient still reported chest pressure. Given her significant cardiovascular history. Given she had pressure prior to her last cardiac intervention I spoke to our ordnance handler on-call Dr. Self as the patient was high risk in terms of history however had 2 negative troponins. He noted given the patient's symptoms were similar to prior, given her age and comorbidities that should be appropriate for admission despite having negative troponins. Of note during the patient's ED course nurses noted while the patient was sleeping she dropped down to 88% patient ambulated here with a pulse ox of 91%. Discussed the case with hospitalist accepted patient case to PCU observation. The patient and/or family, caregivers express understanding. The patient and/or family, caregivers agrees with the plan. Shared decision making: I will have a discussion with the patient and or visitors regarding risk/benefits of further testing or admission. They will be made aware of of the risk/benefits inherent in this decision they will be given the opportunity to voice understanding. Total critical care time today provided was at least 0 minutes. This excludes separately billable procedures. Critical care time (if documented) is secondary to the patient having high probability of clinically significant/life threatening deterioration in the patient's condition which required my urgent intervention. Impression: 1. Chest pain 2. History of CAD 3. Anemia 4. Acute kidney injury Dispo: Admit This note was generated with [employer] dictation software. It may contain incorrect words, spelling, and punctuation that were not noted in review of the chart prior to signing. Lab Data Labs: Laboratory Results - last 24 hr 05/29/24 05/29/24 20:34 22:52 WBC 6.1 RBC 3.53 L Hgb 11.3 L Hct 35.6 L MCV 100.8 H MCH 32.0 MCHC 31.7 L RDW Std Deviation 49.6 H RDW Coeff of [place] 13.3 Plt Count 169 MPV 11.8 Immature Gran % (Auto) 0.300 Neut % (Auto) 69.5 Lymph % (Auto) 17.0 L [place] % (Auto) 8.8 Eos % (Auto) 4.1 Baso % (Auto) 0.3 Absolute Neuts (auto) 4.3 Absolute Lymphs (auto) 1.04 Nucleated RBC % 0 Sodium 139 Potassium 4.3 Chloride 109 H Carbon Dioxide 24.0 Anion Gap 6 BUN 20 H Creatinine 1.28 H Estim Creat Clear Calc 30.59 Est GFR (MDRD) Af Amer 52 L Est GFR (MDRD) Non-Af 43 L BUN/Creatinine Ratio 15.6 Glucose 144 H Calcium 8.7 Total Bilirubin 0.40 Direct Bilirubin 0.12 AST 13 L ALT 34 Alkaline Phosphatase 252 H Troponin I High Sens 6 8 Total Protein 6.2 L Albumin 3.2 Globulin 3.0 Lipase 12 L Discharge Plan Triage Chief Complaint: Chest Pain Other Complaint: Shortness of Breath ED Provider: Rob Rodriges Dx/Rx/DC Orders Prescriptions: No Action chlorthalidone 25 mg tablet 25 mg PO DAILY potassium chloride [Klor-Con M20] 20 mEq tablet,ER particles/crystals 20 meq PO DAILY rosuvastatin 20 mg Tablet 20 mg PO QHS labetalol 200 mg tablet 200 mg PO BID valsartan 320 mg tablet 320 mg PO DAILY Patient Comments: TAKE 1 TABLET BY MOUTH EVERY DAY aspirin 81 mg tablet,delayed release (DR/EC) 81 mg PO DAILY@0800 pantoprazole [Protonix] 40 mg tablet,delayed release (DR/EC) 40 mg PO DAILY tramadol 50 mg tablet 50 mg PO Q8H Patient Comments: today was last dose for pt gabapentin 300 mg capsule 300 mg PO DAILY Primary Care Provider: Chadd Walton Referrals: Chadd Walton MD [Primary Care Provider] - Print Language: Gabonese
--- NOTE | 2024-05-29 20:33 | CT_ITS ---
INDICATION: epigastric abdominal pain, cholecystectomy, appendectomy. EXAMINATION: CT ABDOMEN AND PELVIS WITH CONTRAST - CT Abdomen And Pelvis W/ Contrast Injection TECHNIQUE: Helically acquired images were obtained of the abdomen and pelvis following IV contrast. A radiation dose optimization technique was used for this scan. IV Contrast dosage and agent: 75 cc [id number] Oral contrast: None. COMPARISON: 01/20/2024 FINDINGS: LOWER CHEST: Bibasilar dependent changes. No cardiomegaly or pericardial effusion. LIVER: Increasing intrahepatic biliary ductal dilatation. GALLBLADDER AND BILIARY TREE: Cholecystectomy. Increasing dilatation extrahepatic common bile duct, 2.4 cm diameter compared to prior 2.0 cm diameter. No choledocholithiasis. PANCREAS: No focal cystic or solid mass. SPLEEN: Normal size without focal cystic or solid mass. ADRENAL GLANDS: No nodules. KIDNEYS AND URETERS: Bilateral cortical cysts. No hydronephrosis. PERITONEUM: No ascites or free air. BOWEL: No evidence of acute appendicitis. No stomach or bowel distension. No focal inflammatory change. LYMPH NODES: No enlarged mesenteric or retroperitoneal lymph nodes. VESSELS: Aorta is non-dilated. URINARY BLADDER: Unremarkable. REPRODUCTIVE ORGANS: No pelvic masses. ABDOMINAL WALL: Small fat-containing umbilical hernia. BONES: No acute or aggressive abnormality. CT/Abdomen/Pelvis W IV Cont ONLY IMPRESSION: Increasing postcholecystectomy biliary dilatation. Otherwise no acute findings in the abdomen or pelvis. Electronically Signed: Jonathan Wells MD at 23:32 EST ,
[2024-05-29 20:39] LABS: Absolute Lymphocyte Count 1.04 X10^3/uL (0.83-4.51); Absolute Neutrophil Count 4.3 X10^3/uL (2.0-7.7); Basophil# 0.02 X10^3/uL; Basophil% 0.3 % (0-1); Eosinophil# 0.25 X10^3/uL; Eosinophils% 4.1 % (0-5); Hematocrit 35.6 % (37-47); Hemoglobin 11.3 g/dL (12.0-15.0); Lymphocyte # 1.04 X10^3/ul (0.83-4.51); Mean Corp Hgb Conc 31.7 g/dL (32-36); Mean Corpuscular Volume 100.8 fL (81-99); Mean Platelet Vol. 11.8 fl (6.2-12.0); Monocyte# 0.54 X10^3/uL; Monocyte% 8.8 % (0-10); NRBC Flagged by Analyzer 0 % (0-5); Neutrophil # 4.26 X10^3/uL (2.7-7.7); Neutrophil % 69.5 % (47-70); Platelet Count 169 K/mm3 (150-450); RBC Distribution Width CV 13.3 % (11.6-14.6); RBC Distribution Width SD 49.6 fl (35.1-43.9); Red Blood Count 3.53 M/mm3 (4.2-5.4); White Blood Count 6.1 K/mm3 (4.4-11.0)
--- NOTE | 2024-05-29 20:50 | RAD_ITS ---
INDICATION: chest pain EXAMINATION/TECHNIQUE: X-RAY - portable upright AP chest x-ray COMPARISON: 01/20/2024 FINDINGS: LINES/DEVICES: None. LUNGS: No consolidation, edema or effusion. No pneumothorax. MEDIASTINUM AND CARDIOVASCULAR STRUCTURES: Cardiac silhouette stable within normal limits. Stable changes from prior cardiac surgery. BONES AND SOFT TISSUES: No acute changes. RAD/Chest 1 View (Portable) IMPRESSION: No radiographic evidence of acute cardiopulmonary disease. Electronically Signed: Jonathan Wells MD at 23:45 EST ,
[2024-05-29] MEDS: Ondansetron 4 MG/2 ML Vial IV (20:57)
[2024-05-29] MEDS: Famotidine 200 MG/20 ML MDV 20 MG in 0.9% Normal Saline (Pres. free 8 ML 300 MG IV (20:57)
[2024-05-29 21:03] LABS: AST(SGOT) 13 U/L (15-37); Alanine Aminotransfer ALT/SGPT 34 U/L (13-56); Albumin, Serum 3.2 g/dL (3.2-5.0); Alkaline Phosphatase 252 U/L (45-117); Anion Gap 6 (5-15); BUN 20 mg/dL (7-18); BUN/Creat Ratio 15.6 RATIO (10-20); Bilirubin, Direct 0.12 mg/dL (0.00-0.30); Calcium,Total 8.7 mg/dL (8.5-10.1); Chloride 109 mmol/L (98-107); Creatinine, Serum 1.28 mg/dL (0.55-1.02); EST Glomerular Filtration Rate 43 mL/min (>60); Est Glom Filt Rate - Afr Amer 52 mL/min (>60); Estimated Creatinine Clearance 30.59 ml/min; Glucose 144 mg/dL (74-106); Lipase 12 U/L (13-75); Potassium 4.3 mmol/L (3.5-5.1); Protein, Total 6.2 g/dL (6.4-8.2); Sodium Level 139 mmol/L (136-145); Troponin-I HS (w/2H Reflex) 6 pg/mL (3.0-54.0)
--- NOTE | 2024-05-29 21:12 | ED.RN ---
Patient's O2 dropped to 80% on monitor. This RN bedside. Patient was sleeping. 2L NC applied. Dr. Rodriges notified.
[2024-05-29 22:36] LABS: Reflex Troponin-HS? (from REC) Y
[2024-05-29 23:15] LABS: Troponin-I HS 8 pg/mL (3.0-54.0)
[2024-05-29] MEDS: Nitroglycerin (INPATIENT USE) 0.4 MG TAB.SUBL SL (23:57)
[2024-05-29] MEDS: 0.9% Normal Saline (500mL Bag) 500 ML 999 ML IV (23:59)
[2024-05-30] VITALS (9 sets, daily range): BP systolic 94–153; BP diastolic 50–91; PULSE 66–88; RESP 14–98; TEMP 36.7–37.1; O2SAT 92–97; BMI 26.0; BMI 25.8
--- NOTE | 2024-05-30 00:15 | PCM.HP.STD ---
HPI - General General Date of Admission: 05/30/24 Date of Service: 05/30/24 Chief Complaint: Chest pain HPI Narrative The patient is a 73 y/o F w/ PMHx: CAD s/p CABG x 5, HTN, HLD, PAF, Chronic anemia, GERD who presents to the [facility] ED on 05/30/24 with 2-day history of ongoing persistent waxing and waning midsternal chest pressure varying from 6-10 out of 10 in severity with no radiation worse with exertion with associated dyspnea, worse with exertion with nonproductive cough, decreased appetite as well as nausea and nonbilious emesis with no recent ill contacts that she is aware of prompt eventual ED evaluation to be cautious. Workup in the ED included T98.2, heart 71, BP 122/52, respiratory rate 19, 94% on room air with most recent repeat vitals heart rate 62, BP 104/53, respiratory rate 18, 97% on room air, CBC with WC 6.1, hemoglobin 0.3, MCV 100.8, platelet 169 without marked shift, CMP with chloride 109, BUN/creatinine 20/1.28, GFR 43, glucose 144, alk phos 252 otherwise hepatic profile not marked appearing, initial troponin 6 with repeat delta 8, CT abdomen pelvis with increasing postcholecystectomy biliary dilatation otherwise no acute findings, chest x-ray with no acute cardiopulmonary findings, rapid SARS COVID/influenza/RSV PCR negative, EKG with sinus rhythm with nonspecific changes with no acute evidence of ischemia. In the ED patient is for Zofran 4 mg IV x 1 as well as morphine 4 mg IV x 1. [facility] Medical History Nondisplaced fracture of distal phalanx of left great toe Fracture of distal phalanx of left great toe Medication side effect Toxic metabolic encephalopathy Agitation Acidosis, lactic Closed nondisplaced fracture of left great toe Rhabdomyolysis Preop cardiovascular exam Dyspnea Acute respiratory failure with hypoxia COVID-19 Anemia Chronic pain Facial droop Postoperative atrial fibrillation (11/10/20) Essential hypertension Atherosclerosis of i[place] coronary artery of iro[place] heart without angina pectoris Pinched vertebral nerve Scoliosis GERD (gastroesophageal reflux disease) HLD (hyperlipidemia) History of back pain Home Medications ?Medication ?Instructions ?Recorded ?Last Taken ?Type rosuvastatin 20 mg tablet 20 mg PO QHS cholesterol 12/15/20 07/16/23 History labetalol 200 mg tablet 200 mg PO BID Check with primary 06/12/21 07/17/23 History doctor pantoprazole 40 mg tablet,delayed 40 mg PO DAILY Check with primary 06/12/21 07/17/23 History release (Protonix) doctor valsartan 320 mg tablet 320 mg PO DAILY Check with primary 06/12/21 07/17/23 History doctor chlorthalidone 25 mg tablet 25 mg PO DAILY 08/14/21 07/17/23 History potassium chloride 20 mEq 20 meq PO DAILY 11/20/21 07/17/23 History tablet,extended release(part/cryst) (Klor-Con M) tramadol 50 mg tablet 50 mg PO Q8H pain 07/17/23 07/17/23 History gabapentin 300 mg capsule 300 mg PO DAILY 01/20/24 Unknown History Allergy/AdvReac Type Severity Reaction Status Date / Time levofloxacin Allergy Severe leg pain Verified 01/20/24 14:17 amiodarone Allergy mental Verified 01/20/24 14:17 confusion Penicillins Allergy Unknown Verified 01/20/24 14:17 Sulfa (Sulfonamide Allergy Rash Verified 01/20/24 14:17 Antibiotics) ciprofloxacin AdvReac Rash Verified 01/20/24 14:17 lorazepam (From Ativan) AdvReac I went Verified 01/20/24 14:17 crazy Family History Mother Alcoholism Father Hypertension Brother Diabetes Sister Diabetes Hypertension Sister No problems noted. Son Hypertension Other Kidney disease Surgical History History of left heart catheterization (11/03/20) History of appendectomy H/O coronary artery bypass surgery (11/08/20) History of cholecystectomy Social History household members: spouse pets and animals: Yes (cats) Smoking Status: Never smoker alcohol intake: never substance use type: does not use caffeine: Yes Type: carbonated beverages ROS ROS Narrative Admission Review of Systems: CONSTITUTIONAL: No weight loss, fever, chills, + weakness or fatigue. HEENT: Eyes: No visual loss, blurred vision, double vision or yellow sclerae. Ears, Nose, Throat: No hearing loss, sneezing, congestion, runny nose or sore throat. SKIN: No rash or itching, lesions, wounds. CARDIOVASCULAR: + Chest pressure. No palpitations, edema, orthopnea, syncopal events. RESPIRATORY: + shortness of breath, cough without markedly productive sputum. No wheezing, hemoptysis. GASTROINTESTINAL: + anorexia, nausea, vomiting. No diarrhea, abdominal pain, melena, BRBPR. GENITOURINARY: No dysuria, frequency, urgency or retention. NEUROLOGICAL: No headache, dizziness, syncope, paralysis, ataxia, numbness or tingling in the extremities, focal weakness, change in bowel or bladder control, seizure. MUSCULOSKELETAL: + muscle, back pain, joint pain or stiffness. HEMATOLOGIC: + Chronic anemia. Easy bleeding/bruising. LYMPHATICS: No enlarged nodes. No history of splenectomy. PSYCHIATRIC: No history of depression or anxiety. ENDOCRINOLOGIC: No reports of sweating, cold or heat intolerance. No polyuria or polydipsia. ALLERGIES: No history of asthma, hives, eczema or rhinitis. Vital Signs Vital Signs Vital Signs: 05/29/24 19:51 05/29/24 20:12 05/29/24 20:37 Temperature 98.2 F Temperature Source Oral Pulse Rate 71 63 Respiratory Rate 19 H Respiratory Effort Respiratory Depth Respiratory Pattern Blood Pressure 122/52 H Blood Pressure Mean 75 Pulse Ox 96 94 96 Oxygen Delivery Method Room Air Room Air Oxygen Flow Rate (L/min) 05/29/24 20:41 05/29/24 20:42 05/29/24 20:59 Temperature Temperature Source Pulse Rate Respiratory Rate Respiratory Effort Normal Normal Respiratory Depth Normal Respiratory Pattern Normal Blood Pressure Blood Pressure Mean Pulse Ox 80 Oxygen Delivery Method Room Air Room Air Oxygen Flow Rate (L/min) 05/29/24 21:00 05/29/24 22:00 05/29/24 22:55 Temperature Temperature Source Pulse Rate 67 59 L 61 Respiratory Rate 15 18 18 Respiratory Effort Respiratory Depth Respiratory Pattern Blood Pressure 116/51 L 102/50 L 106/53 L Blood Pressure Mean 72 67 70 Pulse Ox 97 98 91 Oxygen Delivery Method Nasal Cannula Room Air Room Air Oxygen Flow Rate (L/min) 2 05/29/24 23:37 05/29/24 23:57 Temperature Temperature Source Pulse Rate 62 70 Respiratory Rate 18 Respiratory Effort Respiratory Depth Respiratory Pattern Blood Pressure 104/53 L 106/50 L Blood Pressure Mean 70 Pulse Ox 97 Oxygen Delivery Method Room Air Oxygen Flow Rate (L/min) Weight Weight: 130 lb 11.746 oz Body Mass Index (BMI) 26.4 Physical Exam Narrative Physical Examination: General: Awake, alert, oriented x 3 and cooperative, seated upright in ED bed in no apparent distress, notes chest discomfort currently 8 out of 10 in severity. Skin: Normal color, normal turgor, no icterus, no cyanosis except bilateral lower extremity stasis skin changes, occasional stage ecchymoses/abrasion HEENT: AT/NC, EOMI, PERRLA, moderately dry MM, no carotid bruits or JVD noted. Lungs: Mildly diminished, greater bases, proper effort, no rales, ronchi or wheezing. Heart: Regular rate and rhythm; no gallop, rub audible. Abdomen: Soft, NTTP, ND, hyperactive BS, no appreciated HSM. Extremities: No cyanosis, clubbing, or edema, see skin. Neurological: Patient awake, alert, oriented as noted, cognitive function intact; pupils equally reactive to light and accommodation, cranial nerves grossly normal, moving all 4 extremities, no focal deficits, strength mildly to moderately global decreased. Psychiatric: Affect appears fatigued otherwise normal, no acute evidence of depressive or anxiety feelings. Results Lab / Micro Data 05/29/24 20:34 05/29/24 20:34 Labs: Laboratory Results - last 24 hr 05/29/24 20:34: WBC 6.1, RBC 3.53 L, Hgb 11.3 L, Hct 35.6 L, MCV 100.8 H, MCH 32.0, MCHC 31.7 L, RDW Std Deviation 49.6 H, RDW Coeff of [place] 13.3, Plt Count 169, MPV 11.8, Immature Gran % (Auto) 0.300, Neut % (Auto) 69.5, Lymph % (Auto) 17.0 L, [place] % (Auto) 8.8, Eos % (Auto) 4.1, Baso % (Auto) 0.3, Absolute Neuts (auto) 4.3, Absolute Lymphs (auto) 1.04, Nucleated RBC % 0, Sodium 139, Potassium 4.3, Chloride 109 H, Carbon Dioxide 24.0, Anion Gap 6, BUN 20 H, Creatinine 1.28 H, Estim Creat Clear Calc 30.59, Est GFR (MDRD) Af Amer 52 L, Est GFR (MDRD) Non-Af 43 L, BUN/Creatinine Ratio 15.6, Glucose 144 H, Calcium 8.7, Total Bilirubin 0.40, Direct Bilirubin 0.12, AST 13 L, ALT 34, Alkaline Phosphatase 252 H, Troponin I High Sens 6, Total Protein 6.2 L, Albumin 3.2, Globulin 3.0, Lipase 12 L 05/29/24 22:52: Troponin I High Sens 8 Micro: Microbiology 05/29/24 20:40 Mucosa - Nose SARS-CoV-2, Influenza & RSV (PCR) - Final Imaging Radiology Impression Abdomen/Pelvis CT 05/29/24 20:33 IMPRESSION: Increasing postcholecystectomy biliary dilatation. Otherwise no acute findings in the abdomen or pelvis. Electronically Signed: Jonathan Wells MD at 23:32 EST , Chest X-Ray 05/29/24 20:50 IMPRESSION: No radiographic evidence of acute cardiopulmonary disease. Electronically Signed: Jonathan Wells MD at 23:45 EST , Assessment & Plan Assessment/Plan (1) Chest pain: PLAN: Plan The patient is a 73 y/o F w/ PMHx: CAD s/p CABG x 5, HTN, HLD, PAF, Chronic anemia, GERD who presents to the [facility] ED on 05/30/24 with 2-day history of ongoing persistent waxing and waning midsternal chest pressure varying from 6-10 out of 10 in severity with no radiation worse with exertion with associated dyspnea, worse with exertion with nonproductive cough, decreased appetite as well as nausea and nonbilious emesis with no recent ill contacts that she is aware of prompt eventual ED evaluation to be cautious. #1. Persistent chest discomfort with nausea, emesis, cough and dyspnea, concerning for possible ACS however some suspicion also for possible initial presentation of viral syndrome: EKG in ED sinus rhythm with nonspecific changes with no acute evidence of ischemia, CXR w/ no acute cardiopulmonary findings, initial trop 6 with repeat 8. Will admit to PCU, place on a monitored bed to assure no acute myocardial infarction with serial cardiac enzymes and EKGs. Magnesium level requested. FLP in AM. If repeat serial cardiac enzymes and EKGs remain unremarkable and if still remains appropriate would pursue cardiac stress testing Friday. Will obtain full respiratory viral panel. If any onset of diarrhea low threshold to obtain enteric pathogen. Until clinically improving will maintain on clears with IV PPI. #2. Acute kidney injury: Likely secondary to GI losses with nausea and emesis and suspect poor intake, admission BUN/Cr 20/1.28, prior baseline creatinine noted to be primarily 0.5-0.7 but has vacillated and most recently 01/24/2024 creatinine 0.56. Will judiciously hydrate, hold nephrotoxic medications and repeat chemistry in AM. If no improvement would plan FeNa assessment. #3. Hyperglycemia, mild: Admission glucose 144, possibly stress response, if remains elevated will consider hemoglobin A1c. #4. CAD: Status post CABG, will continue aspirin, statin, labetalol. Holding losartan given UBALDO as noted, add back once appropriate. #5. PAF: We will continue patient home labetalol regimen, not on chronic anticoagulation per current list but clarifying. #6. Hypertension: Continue home regimen including labetalol with hold parameters as needed especially given lower BP upon ED arrival, PRN hydralazine. Holding valsartan and diuretic given UBALDO, add back once appropriate. #7. Hyperlipidemia: Continue home statin therapy, FLP in AM. #8. Chronic back pain: We will continue patient on gabapentin regimen, encourage offloading, fall precautions. #9. Chronic macrocytic anemia: Admission hemoglobin 1.3, MCV 100.8, baseline hemoglobin similar, continue to trend. #10. DVT prophylaxis: Lovenox. #11. CODE status: Patient LOU is her who is present and living will is currently in place. Discussed CODE status at length including difference between FULL code, DNR-CCA and DNR-CC status. Following discussions about the differences in these status, requested Full Code status. Charges/Coding Visit Charges Inpatient E&M: 94789 Init Hosp L3
--- NOTE | 2024-05-30 00:19 | EKG12_ITS ---
Test Reason : CP ADMISSION Blood Pressure : */* mmHG Vent. Rate : 64 BPM Atrial Rate : 64 BPM P-R Int : 168 ms QRS Dur : 94 ms QT Int : 434 ms P-R-T Axes : 3 8 44 degrees QTcB Int : 447 ms Normal sinus rhythm Normal ECG When compared with ECG of 29-May-2024 19:59, MANUAL COMPARISON REQUIRED DATA IS UNCONFIRMED Confirmed by ABE BROOKS, GERALD ([id number]), editor book JAYLA FIELDS ([id number]) on 05/31/2024 1:56:20 PM Referred By: SPEEDY Confirmed By: GERALD FISH MD
[2024-05-30 00:42] LABS: Magnesium 1.7 mg/dL (1.6-2.6)
[2024-05-30] MEDS: 0.9% Normal Saline (1000mL) 1,000 ML 100 ML IV (01:18)
[2024-05-30] MEDS: Pantoprazole Sodium 40 MG in 0.9% Normal Saline (100mL MB+) 100 ML 330 MG IV ×3 (01:18→21:01)
[2024-05-30 03:15] LABS: Troponin-I HS 6 pg/mL (3.0-54.0)
[2024-05-30] MEDS: Acetaminophen 325 MG Tablet 650 MG PO (06:15)
--- NOTE | 2024-05-30 06:35 | PCM.HOSP.N ---
Hospitalist Note Patient specifically requesting her tramadol. Given her CrCl will change dosing to BID only until repeat labs obtained and function improved.
[2024-05-30] MEDS: traMADol 50 MG Tablet PO ×3 (06:49→20:59)
--- NOTE | 2024-05-30 07:19 | PN.HOSP_ITS ---
Reason for Visit Reason for Visit: Diagnoses Chest pain, unspecified (05/30/24) Subjective Subjective Has chest pain that is midsternal, non-radiating. Worse with deep respirations and cough. Also has scary pain in hips, knees and calves. Objective Data Objective Data Vital Signs: Vital Signs Temp Pulse Resp BP Pulse Ox O2 Del Method O2 Flow Rate 36.7 C 85 16 94/65 95 Room Air 2 05/30/24 06:00 05/30/24 06:00 05/30/24 06:00 05/30/24 06:00 05/30/24 06:00 05/30/24 06:00 05/29/24 21:00 Oxygen Flow Rate (L/min) 2 Oxygen Delivery Method Room Air Weight: 58.1 kg Body Mass Index (BMI) 25.8 Intake & Output: Intake and Output for Last 24 Hours 05/28/24 05/29/24 05/30/24 23:59 23:59 23:59 Intake Total 610 / 610 Balance 610 / 610 Lab / Micro Data 05/30/24 06:26 05/30/24 06:26 Labs: Laboratory Results - last 24 hr 05/29/24 20:34: WBC 6.1, RBC 3.53 L, Hgb 11.3 L, Hct 35.6 L, MCV 100.8 H, MCH 32.0, MCHC 31.7 L, RDW Std Deviation 49.6 H, RDW Coeff of [place] 13.3, Plt Count 169, MPV 11.8, Immature Gran % (Auto) 0.300, Neut % (Auto) 69.5, Lymph % (Auto) 17.0 L, [place] % (Auto) 8.8, Eos % (Auto) 4.1, Baso % (Auto) 0.3, Absolute Neuts (auto) 4.3, Absolute Lymphs (auto) 1.04, Nucleated RBC % 0, Sodium 139, Potassium 4.3, Chloride 109 H, Carbon Dioxide 24.0, Anion Gap 6, BUN 20 H, C reatinine 1.28 H, Estim Creat Clear Calc 30.59, Est GFR (MDRD) Af Amer 52 L, Est GFR (MDRD) Non-Af 43 L, BUN/Creatinine Ratio 15.6, Glucose 144 H, Calcium 8.7, Total Bilirubin 0.40, Direct Bilirubin 0.12, AST 13 L, ALT 34, Alkaline Phosphatase 252 H, Troponin I High Sens 6, Total Protein 6.2 L, Albumin 3.2, Globulin 3.0, Lipase 12 L 05/29/24 22:52: Magnesium 1.7, Troponin I High Sens 8 05/30/24 02:37: Troponin I High Sens 6 Micro: Microbiology 05/29/24 20:40 Mucosa - Nose SARS-CoV-2, Influenza & RSV (PCR) - Final Radiography Diagnostic Testing: Radiology Impression Abdomen/Pelvis CT 05/29/24 20:33 IMPRESSION: Increasing postcholecystectomy biliary dilatation. Otherwise no acute findings in the abdomen or pelvis. Electronically Signed: Jonathan Wlels MD at 23:32 EST , Chest X-Ray 05/29/24 20:50 IMPRESSION: No radiographic evidence of acute cardiopulmonary disease. Electronically Signed: Jonathan Wells MD at 23:45 EST , Physical Exam Const alert and no apparent distress HEENT head/scalp atraumatic and moist oral mucous membranes Resp normal respiratory effort, no retractions and no use of accessory muscles Cardio regular rate, regular rhythm, S1 normal heart sound and S2 normal heart sound GI normal to inspection, nondistended, normoactive bowel sounds, soft to palpation, non-tender and non-distended Extremity full ROM Extremity Narrative: no knee effusion. FROM on bilateral hips. Calf muscle tenderness bilaterally w/o palpable cords. Assessment & Plan Assessment/Plan (1) Chest pain: PLAN: Plan Chest pain: * atypical suspect costochondritis from retching, but given history of CAD. Troponins have been WNL. EKG unremarkable. On ASA. Stress test ordered and to be performed 05/31 Leg pain: * arthralgias and myalgias. No clinical concerns at this time. Reassurance provided. Likely related with recent GI issues. UBALDO: * 2/2 dehydration for GI losses with nausea and emesis. Receiving IVF. I anticipate improvement. Follow up BMP in AM. Chronic conditions: * CAD: Status post CABG, will continue aspirin, statin, labetalol. Holding losartan given UBALDO as noted, add back once appropriate. * Hypertension: Continue home regimen including labetalol with hold parameters as needed especially given lower BP upon ED arrival, PRN hydralazine. Holding valsartan and diuretic given UBALDO, add back once appropriate. * Hyperlipidemia: Continue home statin therapy, FLP in AM. * Chronic back pain: We will continue patient on gabapentin regimen, encourage offloading, fall precautions. * Chronic macrocytic anemia: Admission hemoglobin 1.3, MCV 100.8, baseline hemoglobin similar, continue to trend. DVT prophylaxis: Lovenox. Disposition: if stress negative. Should be ready for discharge on 05/31. Charges/Coding Visit Charges Inpatient E&M: 88401 Subs Hosp L2
[2024-05-30 07:30] LABS: Absolute Neutrophil Count 6.1 X10^3/uL (2.0-7.7); Basophil# 0.02 X10^3/uL; Basophil% 0.3 % (0-1); Eosinophil# 0.27 X10^3/uL; Eosinophils% 3.6 % (0-5); Hematocrit 34.8 % (37-47); Hemoglobin 10.9 g/dL (12.0-15.0); Lymphocyte % 9.2 % (19-41); Mean Corp Hgb Conc 31.3 g/dL (32-36); Mean Corpuscular Hgb 32.2 pg (27.0-32.0); Mean Platelet Vol. 12.1 fl (6.2-12.0); Monocyte# 0.49 X10^3/uL; Monocyte% 6.5 % (0-10); NRBC Flagged by Analyzer 0 % (0-5); Neutrophil # 6.06 X10^3/uL (2.7-7.7); Platelet Count 155 K/mm3 (150-450); RBC Distribution Width CV 13.3 % (11.6-14.6); RBC Distribution Width SD 50.1 fl (35.1-43.9); Red Blood Count 3.38 M/mm3 (4.2-5.4); White Blood Count 7.6 K/mm3 (4.4-11.0)
[2024-05-30 07:59] LABS: AST(SGOT) 9 U/L (15-37); Alanine Aminotransfer ALT/SGPT 30 U/L (13-56); Alkaline Phosphatase 230 U/L (45-117); Anion Gap 2 (5-15); BUN 16 mg/dL (7-18); BUN/Creat Ratio 17.4 RATIO (10-20); Calcium,Total 8.4 mg/dL (8.5-10.1); Chloride 113 mmol/L (98-107); Creatinine, Serum 0.92 mg/dL (0.55-1.02); EST Glomerular Filtration Rate 63 mL/min (>60); Est Glom Filt Rate - Afr Amer 76 mL/min (>60); Estimated Creatinine Clearance 42.15 ml/min; Globulin 2.9 g/dL (2.2-4.2); Glucose 98 mg/dL (74-106); Potassium 4.4 mmol/L (3.5-5.1); Protein, Total 5.9 g/dL (6.4-8.2); Sodium Level 143 mmol/L (136-145)
[2024-05-30] MEDS: Gabapentin 300 MG Capsule PO (08:32)
[2024-05-30] MEDS: Enoxaparin 40 MG/0.4 ML Syringe SC (08:32)
[2024-05-30] MEDS: Aspirin E.C. 81 MG Tablet PO (08:33)
[2024-05-30] MEDS: Potassium Chloride Oral Tablet 20 MEQ PO (08:33)
[2024-05-30] MEDS: Labetalol 200 MG Tablet PO ×2 (08:33→20:59)
[2024-05-30] MEDS: MELATONIN 3 MG TABLET PO (20:59)
[2024-05-30] MEDS: Atorvastatin Calcium 40 MG Tablet PO (20:59)
[2024-05-31 03:32] VITALS: BP 170/70; PULSE 81; RESP 16; TEMP 36.3; O2SAT 97
--- NOTE | 2024-05-31 05:00 | EKG12_ITS ---
Test Reason : PRE-OP Blood Pressure : */* mmHG Vent. Rate : 74 BPM Atrial Rate : 74 BPM P-R Int : 180 ms QRS Dur : 96 ms QT Int : 394 ms P-R-T Axes : -11 35 60 degrees QTcB Int : 437 ms Normal sinus rhythm Normal ECG When compared with ECG of 30-May-2024 01:00, MANUAL COMPARISON REQUIRED DATA IS UNCONFIRMED Confirmed by ABE BROOKS, GERALD ([id number]), editorial project manager JAYLA FIELDS ([id number]) on 05/31/2024 1:55:28 PM Referred By: SPEEDY Confirmed By: GERALD FISH MD
[2024-05-31 06:00] VITALS: BMI 26.3
[2024-05-31 06:32] LABS: Cholesterol 115 mg/dL (200); High Density Lipoprotein 55 mg/dL; Triglycerides 112 mg/dL; Very Low Density Lipoprotein 22 mg/dL (5-40)
[2024-05-31 07:40] VITALS: BP 164/68; PULSE 80; RESP 18; TEMP 36.6; O2SAT 93
[2024-05-31] MEDS: Aspirin E.C. 81 MG Tablet PO (07:41)
[2024-05-31] MEDS: traMADol 50 MG Tablet PO (07:41)
[2024-05-31 09:53] VITALS: BP 173/78; PULSE 76; RESP 18; TEMP 36.7; O2SAT 94
[2024-05-31] MEDS: Gabapentin 300 MG Capsule PO (09:55)
[2024-05-31] MEDS: Labetalol 200 MG Tablet PO (09:55)
[2024-05-31] MEDS: Potassium Chloride Oral Tablet 20 MEQ PO (09:55)
[2024-05-31 11:04] VITALS: BP 145/65
--- NOTE | 2024-05-31 11:46 | CASEMGMT ---
Met with patient to complete GARZA form. GARZA form explained to patient who voiced understanding and signed form. Original form placed in pt?s chart and copy provided to patient. Denise Sharif, Discharge Planning Asst
[2024-05-31] MEDS: Pantoprazole Sodium 40 MG Tablet PO (12:32)
--- NOTE | 2024-05-31 13:11 | STRESSREP ---
Stress Test Report Date: 05/31/2024 Procedure: Pharmacologic stress nuclear imaging study Indications: Chest pain Consent: Per the patient Procedure: The patient underwent pharmacologic (Regadenoson) evaluation with a peak heart rate of 104 beats per minute (71%predicted maximal heart rate) and a peak blood pressure of 162/82 mmHg. The baseline ECG demonstrated normal sinus rhythm. EKG during lexiscan infusion revealed no significant ischemic changes. EKG post infusion revealed no significant ischemic changes [There were no cardiac dysrhythmias pretest, during pharmacologic infusion, or recovery]. [There was no complaint of chest discomfort during pharmacologic infusion or recovery]. The examination was discontinued secondary to completion of protocol. Impression: 1. Lexiscan stress test test is negative for Lexiscan infusion induced EKG changes of ischemia. 2. Lexiscan stress test test is negative for Lexiscan infusion induced chest pain. 3. Results of the nuclear portion of the test is as below Myocardial perfusion imaging study: Technique: The patient was injected with 12 millicuries of technetium 99m Cardiolite and subsequently rest SPECT Cardiolite nuclear imaging was obtained in the horizontal long, vertical long, and short axis views. The patient underwent pharmacologic [Regadenoson 0.4mg] evaluation. Please see above for details. The patient was injected with 35.1 millicuries of technetium 99m Cardiolite and subsequently stress SPECT Cardiolite nuclear imaging was obtained in the horizontal long, vertical long, and short axis views. A gated Cardiolite study at peak stress was obtained. Interpretation: Rest and stress SPECT Cardiolite nuclear imaging status post realignment, normalization, and attenuation correction demonstrate no evidence of significant ischemia or infarction. Gated images reveal no significant regional wall motion abnormalities. The reported LVEF is 70%. Impression: 1. There is no evidence of significant ischemia or infarction. 2. Estimated ejection fraction is 70%. This note was generated with [employer] software. It may contain incorrect words, spelling, and punctuation that were not noted in checking the note before signing.
--- NOTE | 2024-05-31 13:48 | DCINST_ITS ---
Discharge Instructions Diet Discharge Diet: No restrictions DC O2, CPAP, BIPAP needs Home O2 Discharge instructions: No Dressing / Incision Discharge Activity: Return to Normal Activity Weight Bearing Status: Full weight bearing Follow Up Care Test Results: Test results from this visit will be discussed in further detail at your follow- up appointment, if applicable. Discharge Plan Admission Admit Date/Time: 05/30/24 00:16 Primary Reason for Your Visit: chest pain,dehydration Attending Provider: Ke Mccullough Primary Care Provider: Chadd Walton Consulting Providers: Mandi Nguyen Eric Discharge Orders/Prescriptions Prescriptions: New aspirin 81 mg Tablet,Delayed Release (Dr/Ec) 81 mg PO BREAKFAST Qty: 0 0RF Continued rosuvastatin 20 mg Tablet 20 mg PO QHS labetalol 200 mg tablet 200 mg PO BID valsartan 320 mg tablet 320 mg PO DAILY Patient Comments: TAKE 1 TABLET BY MOUTH EVERY DAY pantoprazole [Protonix] 40 mg tablet,delayed release (DR/EC) 40 mg PO DAILY tramadol 50 mg tablet 50 mg PO Q8H Patient Comments: today was last dose for pt gabapentin 300 mg capsule 300 mg PO DAILY Discontinued chlorthalidone 25 mg tablet 25 mg PO DAILY potassium chloride [Klor-Con M20] 20 mEq tablet,ER particles/crystals 20 meq PO DAILY Referrals / Follow Up: Chadd Walton MD [Primary Care Provider] - See Referral Note (in two weeks) Disposition Disposition (needs filled in before D/C Order can be placed): Home, Self Care
--- NOTE | 2024-05-31 13:57 | PCM.DC.SUM ---
Providers Date of Admission: 05/30/24 Date of Discharge: 05/31/24 Primary Care Physician: Dr. Chadd Walton MD Reason For Visit: CHEST PAIN Diagnosis Discharge Diagnosis (1) Chest pain: Status: Acute Code(s): R07.9 - Chest pain, unspecified Plan 1. Musculoskeletal chest pain #2 dehydration secondary to prescription diuretic usage #3 essential hypertension #4 coronary artery disease Acute kidney injury was ruled out Medications at Discharge Home Medications rosuvastatin 20 mg tablet 20 mg PO QHS cholesterol 12/15/20 labetalol 200 mg tablet 200 mg PO BID Check with primary doctor 06/12/21 pantoprazole 40 mg tablet,delayed release (Protonix) 40 mg PO DAILY Check with primary doctor 06/12/21 valsartan 320 mg tablet 320 mg PO DAILY Check with primary doctor 06/12/21 tramadol 50 mg tablet 50 mg PO Q8H pain 07/17/23 gabapentin 300 mg capsule 300 mg PO DAILY 01/20/24 aspirin 81 mg tablet,delayed release 81 mg PO BREAKFAST #0 tabs 05/31/24 Hospital Course Operations None Procedures Nuclear stress test Summary of Care Provided Minutes Spent on Discharge: 31 Hospital Course: 73-year-old white female was seen in the emergency room at [facility] [place] with complaints of midsternal chest pain that she described as a pressure-like sensation. Patient states the discomfort does not radiate, she stated the pain was worse with exertion, she also complained of some shortness of breath. Labs were remarkable for hemoglobin of 11.3, troponin was unremarkable, creatinine was slightly elevated at 1.28 and BUN was 20. Patient's EKG showed no evidence of ischemic changes. Patient was placed in observation status on PCU and cardiac enzymes were cycled and remained normal. Patient underwent a nuclear stress test that did not show any evidence of reversible ischemia. This examiner did not feel the patient had acute kidney injury rather I felt that the patient was dehydrated from her outpatient use of diuretics for blood pressure control. Patient's repeat creatinine was 0.92. On 05/31/2024, patient was seen and examined: On examination she appeared in good health and spirits, she does not appear to be in any distress. Vital signs as documented. Skin warm and dry and without overt rashes. Neck without JVD, thyroid appears normal, trachea is midline, neck is supple. Lungs clear, normal air movement was noted. Heart exam notable for regular rhythm, normal sounds and absence of murmurs, rubs or gallops. Abdomen unremarkable and without evidence of organomegaly, masses, or abdominal aortic enlargement, bowel sounds are present in all 4 quadrants, no abdominal tenderness was noted. Extremities nonedematous, no cyanosis was noted, no clubbing was noted. Neuro: Cranial nerves II through XII are grossly intact, no focal motor deficits were noted, sensation to light touch and pinprick is intact, motor exam 5/5 throughout. Psych: Patient is alert and oriented x3, she does not appear anxious or depressed, she does not appear agitated. Patient appeared to be stable for discharge home on 05/31/2024 Weight / BMI Weight Weight: 59.2 kg Body Mass Index (BMI) 26.3 ABG / Lab / Microbiology Data 05/30/24 06:26 05/30/24 06:26 Laboratory: Laboratory Results - last 24 hr 05/31/24 05:49: Triglycerides 112, Cholesterol 115, LDL Cholesterol 38, VLDL Cholesterol 22, HDL Cholesterol 55 Microbiology: Microbiology 05/30/24 00:58 Mucosa - Nasopharyngeal Respiratory Panel (PCR) - Final 05/29/24 20:40 Mucosa - Nose SARS-CoV-2, Influenza & RSV (PCR) - Final D/C Instructions Discharge Diet: No restrictions Weight Bearing Status: Full weight bearing DC O2, CPAP, BIPAP Needs Home O2 Discharge instructions: No Meaningful Use Info Meaningful Use Meaningful Use Diagnoses (Choose all that apply): None applicable Ischemic Stroke Statin Dosing Therapy Reference: STATIN DOSE THERAPY REFERENCE: * Patients > 75 years receive moderate or high dose statin therapy. * Patients 75 years or YOUNGER should receive HIGH intensity statin dose unless contraindicated. You will be required to document reason for non-treatment if statin daily dose does not meet guidelines. HIGH DOSE STATIN THERAPY DAILY Atorvastatin > than or = to 40 mg Rosuvastatin > than or = to 20 mg Amlodipine + Atorvastatin > than or = to 2.5/40 mg Ezetimibe + Simvastatin 10/80 mg Simvastatin 80mg Discharge Plan Admission Admit Date/Time: 05/30/24 00:16 Primary Reason for Your Visit: chest pain,dehydration Attending Provider: Ke Mccullough Primary Care Provider: Chadd Walton Consulting Providers: Mandi Nguyen; Jesse Rojas Discharge Orders/Prescriptions Prescriptions: New aspirin 81 mg Tablet,Delayed Release (Dr/Ec) 81 mg PO BREAKFAST Qty: 0 0RF Continued rosuvastatin 20 mg Tablet 20 mg PO QHS labetalol 200 mg tablet 200 mg PO BID valsartan 320 mg tablet 320 mg PO DAILY Patient Comments: TAKE 1 TABLET BY MOUTH EVERY DAY pantoprazole [Protonix] 40 mg tablet,delayed release (DR/EC) 40 mg PO DAILY tramadol 50 mg tablet 50 mg PO Q8H Patient Comments: today was last dose for pt gabapentin 300 mg capsule 300 mg PO DAILY Discontinued chlorthalidone 25 mg tablet 25 mg PO DAILY potassium chloride [Klor-Con M20] 20 mEq tablet,ER particles/crystals 20 meq PO DAILY Referrals / Follow Up: Chadd Walton MD [Primary Care Provider] - See Referral Note (in two weeks) Disposition Disposition (needs filled in before D/C Order can be placed): Home, Self Care Charges/Coding Visit Charges Inpatient E&M: 74210 Disch Hosp >30min
[2024-05-31 14:23] VITALS: BP 151/72; PULSE 80; RESP 16; TEMP 36.8; O2SAT 94
--- NOTE | 2024-05-31 14:53 | CASEMGMT ---
Patient has order for discharge. RN CM in to discuss needs at discharge. Patient denies needs or help at discharge. Patient had no further questions or concerns.
--- NOTE | 2024-05-31 14:55 | PHA.DC.MR.R ---
Pharm[facility] Med Reconciliation Pharmacy Service has performed discharge medication reconciliation for this patient. Previously taken aspirin, did not after school counselor. The patient's discharge medication list was reviewed for discrepancies and discrepancies were resolved. Medications at Discharge Home Medications rosuvastatin 20 mg tablet 20 mg PO QHS cholesterol 12/15/20 labetalol 200 mg tablet 200 mg PO BID Check with primary doctor 06/12/21 pantoprazole 40 mg tablet,delayed release (Protonix) 40 mg PO DAILY Check with primary doctor 06/12/21 valsartan 320 mg tablet 320 mg PO DAILY Check with primary doctor 06/12/21 tramadol 50 mg tablet 50 mg PO Q8H pain 07/17/23 gabapentin 300 mg capsule 300 mg PO DAILY 01/20/24 aspirin 81 mg tablet,delayed release 81 mg PO BREAKFAST #0 tabs 05/31/24
== END 2024-05-31 15:45 | disposition home or self-care (01) ==
LOC: ED 05-30 00:03 → PCU 05-30 00:52
PROVIDERS: Admitting Provider Family Medicine; Emergency Provider Emergency Medicine; PCP Family Medicine; Visit Provider Internal Medicine
DX: R07.89 Other chest pain (principal); I48.0 Paroxysmal atrial fibrillation; I10 Essential (primary) hypertension; E86.0 Dehydration; Z79.891 Long term (current) use of opiate analgesic; M79.661 Pain in right lower leg; M79.662 Pain in left lower leg; K21.9 Gastro-esophageal reflux disease without esophagitis; E78.5 Hyperlipidemia, unspecified; R06.02 Shortness of breath; G89.29 Other chronic pain; I25.10 Atherosclerotic heart disease of native coronary artery without angina pectoris; T50.2X5A Adverse effect of carbonic-anhydrase inhibitors, benzothiadiazides and other diuretics, initial encounter; Z79.899 Other long term (current) drug therapy; Z79.82 Long term (current) use of aspirin; R73.9 Hyperglycemia, unspecified; D53.9 Nutritional anemia, unspecified
CPT/HCPCS: 36415; 71045; 74177; 78452; 80048; 80053; 80061; 80076; 83690; 83735; 84484; 85025; 87631; 87633; 93005; 93017; 94668; 96361; 96365; 96366; 96372; 96375; 99221; 99285; A9500; Q9967; A4216; G0378; J2405; J2785

== ENCOUNTER → 2024-12-02 | Outpatient (CLI) | payer MEDICARE, SELFPAY ==
[2024-12-02 18:37] LABS: Anion Gap 11 (5-15); BUN 9 mg/dL (4-19); BUN/Creat Ratio 15.0 RATIO (10-20); Calcium,Total 9.0 mg/dL (7.6-11.0); Carbon Dioxide 23.7 mmol/L (21.0-32.0); Chloride 105 mmol/L (98-108); Cholesterol 130 mg/dL (<=200); Glucose 94 mg/dL (70-99); Low Density Lipoprotein Calc. 45 mg/dL; Potassium 4.3 mmol/L (3.3-5.1); Triglycerides 100 mg/dL; Very Low Density Lipoprotein 20 mg/dL (5-40); cholesterol:hdl ratio screen 2.00
== END | disposition home or self-care (01) ==
LOC: MFPLAB 16:25
PROVIDERS: PCP Family Medicine; Referring Provider Family Medicine; Visit Provider Family Medicine
DX: I10 Essential (primary) hypertension (principal)
CPT/HCPCS: 36415; 80048; 80061

== ENCOUNTER → 2024-12-16 | Outpatient (CLI) | payer MEDICARE, SELFPAY ==
--- NOTE | 2024-12-16 14:59 | RAD_ITS ---
PROCEDURE: SHOULDER MIN 2 VIEWS 12/16/2024 REASON FOR EXAM: RIGHT SHOULDER PAIN TECHNIQUE: SHOULDER MIN 2 VIEWS COMPARISON: None. FINDINGS: There is no evidence of fracture or dislocation. 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 There is mild arthritis of the acromioclavicular joint. The periarticular soft tissues are normal. RAD/Shoulder min 2 Views IMPRESSION: Arthritis of the acromioclavicular and glenohumeral joints. Reading Location: [place] [id number]
--- OUTSIDE RECORDS SUMMARY | 2024-12-16 20:21 | XMS RPT_ITS | CCD ---
Author Organization [facility] Care Team Providers Care Retail Financial Analyst Name Role Phone Elroy Weiss Primary Care Provider Dr. Elroy Weiss Primary Care Provider Dr. Aquiles Mccain Emergency Provider Dr. Mandi Nguyen Admit Provider Dr. Mandi Nguyen Attending Provider Dr. Mandi Nguyen Other Provider Dr. Maximilian Loera Attending Provider Unavailable Dr. Maximilian Loera Other Provider Unavailable Dr. Elroy Weiss Referring Provider Dr. Roshan Costello Attending Provider Jimmy Castaneda MD (Sanjana) Primary Care Provider Jimmy Castaneda MD (Sanjana) Primary Care Provider Elroy Weiss MD Primary Care Provider Roshan Costello MD Unavailable Dr. Elroy Weiss Primary Care Provider Dr. Elroy Weiss Referring Provider Dr. Roshan Costello Attending Provider JIMMY CASTANEDA (SANJANA) Primary Care Unavailable SELF, SELF Referring Unavailable ALYSSA, GORANDAR N Attending Unavailable JIMMY CASTANEDA (SANJANA) Primary Care Unavailable ALYSSA, SAFDAR N Attending Unavailable ALYSSA, SAFDAR N Admitting Unavailable JIMMY CASTANEDA (SANJANA) Primary Care Unavailable ALYSSA, SAFDAR N Attending Unavailable SELF, SELF Referring Unavailable ELROY WEISS Primary Care Unavailable YANET REED Referring Unavailable YANET REED Attending Unavailable ELROY WEISS Primary Care Unavailable BROWN, ELROY F Primary Care Unavailable BROWN, ELROY F Primary Care Unavailable REANNA GIBBS, DESEAN Mancia Referring Unavailable BROWN, ELROY F Primary Care Unavailable YANET REED Attending Unavailable REANNA SAHU., DESEAN Mancia Referring Unavailable BROWN, ELROY F Primary Care Unavailable YANET REED Attending Unavailable ISELA, ELROY Admitting Unavailable BROWN, ELROY Primary Care Unavailable BROWN, ELROY Consulting Unavailable BROWN, ELROY Attending Unavailable PROVIDER, UNKNOWN Consulting Unavailable PROVIDER, UNKNOWN Consulting Unavailable PROVIDER, UNKNOWN Consulting Unavailable Isela BROOKS, Elroy Muir Unavailable Chandler BROOKS, Dr. Martin Unavailable Jerry BROOKS, Dr. Parish Muir Unavailable Dr. Buddy Ramírez DO Unavailable [phone] Physical Therapy, Lenny Santiago Unavailable Dr. Roshan Jackson Unavailable Britney BROOKS, Dr. Fortune Unavailable Orthopedic Provider Unavailable Unavailable Hematology Provider Unavailable Unavailable Gorge FRY, Nevaeh Unavailable Unavailable Celso GIFT WRAPPER, Rashida Unavailable Can LIVINGSTONC, Lillian Watts Unavailable Matias GIFT WRAPPER, Lucille Unavailable Unavailable Phuc GIFT WRAPPER, Cassie E Unavailable Unavailable Edward SHETH, Maribel Unavailable Unavailable Laurent GIFT WRAPPER, Tonya C Unavailable Unavailable Gogoi (scribe), Hemanta Unavailable Unavaila ble Ted GIFT WRAPPER, Ewa Unavailable Unavailable Ismael BROOKS, Jimmy Bruce Unavailable Melissa GIFT WRAPPER, Archana Unavailable Unavaila ble Miguel Angel GIFT WRAPPER, Liss Unavailable Unavailable Mateo FRY, Nenita Bruce Unavailable Unavaila ble Angel SHETH, Shania Unavailable Unavailable Jaxon (Scribe), Landon Unavailable Unavailab anthony Fuchs RN, Genny Y Unavailable Unavailable Brar GIFT WRAPPER, Pascale Unavailable Unavailable Muterslizeth GIFT WRAPPER, Emily K Unavailable Unavai ofe LIVINGSTONC, Anahi J Unavailable Carlos (Scribe), Louis Unavailable Unavailab le Laverne BULLARD MACHINE OPERATOR, Nisha Unavailable Unavailable Cassidy GIFT WRAPPER, Ana L Unavailable Unavailab anthony Pandya GIFT WRAPPER, Shonna M Unavailable Unavailab anthony Xavier GIFT WRAPPER, Eboni Jackson Unavailable Unavailab anthony Velasco MA, Liss Unavailable Unavailable Efren BROOKS, Danny Bruce Unavailable Vess GIFT WRAPPER, Nekikie L Unavailable Unavailable Wengerd GIFT WRAPPER, Peggy Unavailable Unavailabl e Batsheva GIFT WRAPPER, Aga N Unavailable Unavaila ble Zaugg GIFT WRAPPER, Flor Unavailable Unavailable Unavailable Unavailable Kanchan Vogel Unavailable Unavailable Elroy Weiss MD Primary Care Provider Chadd Walton Primary Care Unavailable Chadd Walton Attending Unavailable Chadd Walton Referring Unavailable Varsha Sales Admitting Unavailable Varsha Sales Consulting Unavailable Chadd Walton Primary Care Unavailable Koram, Juana Paige Attending Unavailable Nehemiah Callejas Consulting Unavailable Deshawn Land Consulting Unavailable Adeli, Amir Consulting Unavailable Hinduja, Shanice Consulting Unavailable Chema, Shameka Consulting Unavailable Zha, Jillian Consulting Unavailable Tomeka, Daryl Consulting Unavailable Juice, Evelina Consulting Unavailable Bittar, Rafi Consulting Unavailable Armani Matthew Consulting Unavailable Reese Pineda Consulting Unavailable Ira Ervin Consulting Unavailable Ronen Tierney Consulting Unavailable Augie, Reyna Consulting Unavailable Ridha, Mohamed Consulting Unavailable Zaghlosarithah, Mhd Tae Consulting UnavailJulio Thomas Consulting Unavailable RochaMaxime Consulting Unavailable Walt Aviles Consulting Unavailable Carmencita Sales Consulting Unavailable Josselin Cheung Consulting Unavailable Davin, Juana Paige Consulting Unavailable Chadd Walton Attending Unavailable Chadd Walton Referring Unavailable Chadd Walton Primary Care Unavailable Jordi Salesyn Admitting Unavailable Varsha Sales Consulting Unavailable Libiaam, Juana Paige Attending Unavailable Chadd Walton Primary Care Unavailable Nehemiah Callejas Consulting Unavailable Deshawn Land Consulting Unavailable Adeli, Amir Consulting Unavailable Hinduja, Shanice Consulting Unavailable Chema, Shameka Consulting Unavailable Zha, Jillian Consulting Unavailable Tomeka, Daryl Consulting Unavailable Juice, Evelina Consulting Unavailable Bittar, Rafi Consulting Unavailable Armani Matthew Consulting Unavailable Reese Pineda Consulting Unavailable Ira Ervin Consulting Unavailable GusRonen suh Consulting Unavailable Augie, Reyna Consulting Unavailable Ridha, Mohamed Consulting Unavailable Zaghlouleh, Mhd Tae Consulting UnavailJulio Thomas Consulting Unavailable Rocha, Rami Consulting Unavailable Walt Aviles Consulting Unavailable Carmencita Sales Consulting Unavailable Josselin Cheung Consulting Unavailable Roof Danny WAL[employer] Attending Unavailable Chadd Walton Referring Unavailable Chadd Walton Primary Care Unavailable Varsha Sales Attending Unavailable Chadd Walton Primary Care Unavailable White, Mandi L Consulting Unavailable White, Mandi L Attending Unavailable White, Mandi L Admitting Unavailable Chadd Walton Primary Care Unavailable White, Mandi L Admitting Unavailable White, Mandi L Consulting Unavailable Ke Mccullough Attending Unavailable Crystal Jesse Consulting Unavailable Ke Mccullough Consulting Unavailable Giovanna Self Attending UnavailChadd Kumar Primary Care Unavailable Ke Mccullough Attending Unavailable White, Mandi L Consulting Unavailable White, Mandi L Admitting Unavailable Crystal Jesse Consulting Unavailable Allergies Allergy Classification Reported Allergen(s) Allergy Type Date of Onset Reaction(s) Facility Benzodiazepines (1 source) LORazepam Drug Allergy 11-13-19 21 Other (See Comments) [facility] Work Phone: Penicillins (antibiotic) (1 source) Penicillins Drug Allergy 05-17-19 15 [facility] Sulfonamides (antibiotic) (1 source) Sulfonamides (Antibiotic) Drug Allergy 05-17-19 15 [facility] (6 sources) Amiodarone Drug Allergy 08-15-19 22 mental confusion [facility] (6 sources) levoFLOXacin Drug Allergy 08-15-19 22 leg pain [facility] (9 sources) LORazepam Drug Allergy 11-13-19 21 [facility] went [facility] (10 sources) Penicillins; Translations: [Penicillins] Allergy to substance 05-17-19 15 [facility] Work Phone: (7 sources) Sulfonamides (Antibiotic); Translations: [Sulfa (Sulfonamide Antibiotics)] Allergy to substance 08-15-19 22 [facility] (3 sources) Sulfonamides (Antibiotic) Propensity to adverse reactions to drug 05-17-19 15 [facility] (1 source) Penicillin Drug Allergy [facility] (1 source) Sulfonamides (Antibiotic) Drug allergy (disorder) [facility] (20 sources) Penicillin V Drug Allergy [facility] (1 source) [facility] (1 source) [facility] (1 source) [facility] (1 source[facility] (1 source) [facility] (1 source[facility] (1 source) [facility] (1 source) [facility] (1 source[facility] (1 source) [facility] (1 source) [facility] (1 source) [facility] (3 sources) Ciprofloxacin Drug Allergy 07-17-19 [facility] (1 source) [facility] (1 source[facility] (1 source) [facility] (1 source[facility] (1 source) [facility] (1 source[facility] (1 source[facility] (1 source[facility] (1 source[facility] (1 source) [facility] (1 source) [facility] (1 source) Amiodarone Drug Allergy 01-20-20 [facility] (1 source) Ciprofloxacin Drug Allergy 01-20-20 [facility] (1 source) levoFLOXacin Drug Allergy 01-20-20 [facility] (1 source) LORazepam Drug Allergy 01-20-20 [facility] Medications Current Medications Medication Drug Class(es) Dates Sig (Normalized) Sig (Original) 100 ml acetaminophen 10 mg/ml injection (2 sources) Start: 11-10-2020 acetaminophen (OFIRMEV) infusion 1,000 mg Start: 11-08-2020 End: 11-10-2020 acetaminophen (TYLENOL) tabl et 1,000 mg Albuterol Sulfate (20 sources) beta2-Adrenergic Agonist Start: 06-14-2021 take 1 puff(s) by inhalation every six hours Albuterol Sulfate (Proair Hfa) 90 mcg/actuation HFA aerosol inhaler Active 2 PUFF INHALATION EVERY 6 HOURS 6.7 June 14, 2021 12:06pm Start: 06-14-2021 End: 06-06-2022 take 1 puff(s) by inhalation every six hours Albuterol Sulfate (Proair Hfa) 90 mcg/actuation HFA aerosol inhaler Discontinued 2 PUFF INHALATION EVERY 6 HOURS 6.7 June 14, 2021 1:00am June 06, 2022 4:29pm Start: 11-08-2020 End: 11-08-2020 albuterol (PROVENTIL) nebuli zer solution 2.5 mg Start: 05-18-2014 amiodarone hydrochloride 400 mg oral tablet (3 sources) Antiarrhythmic Start: 11-13-2020 take 1 tablet by mouth once daily amiodarone (CORDARONE) 200 MG tablet Take 1 tablet by mouth daily 90 tablet 0 11/13/2020 Active Start: 11-13-2020 End: 11-13-2020 take 0.5 tablet by mouth once daily amiodarone (PACERONE) 400 MG tablet Take 0.5 tablets by mouth daily 90 tablet 0 11/13/2020 11/13/2020 Discontinued Start: 11-11-2020 amiodarone (CO RDARONE) tablet 400 mg aspirin 81 mg delayed release oral tablet (20 sources) Platelet Aggregation Inhibitor, Nonsteroidal Anti-inflammatory Drug Start: 03-10-2021 aspirin 81 MG Gifty w Tab chewable tablet Chew 1 tablet daily every morning. 0 03/10/2021 Active Start: 11-13-2020 take 1 tablet by luci th once daily aspirin 81 MG chewable tablet Take 1 tablet by mouth daily 30 tablet 3 11/13/2020 Active Start: 11-09-2020 aspirin chewab le tablet 81 mg Start: 11-03-2020 End: 06-12-2021 take 81 mg by mouth once daily Aspirin Active 81 MG PO DAILY@0800 June 12, 2021 10:58pm benzonatate 100 mg oral caps ule (20 sources) Non-narcotic Antitussive Start: 07-31-2023 Start: 05-29-2023 Start: 02-27-2023 Start: 02-25-2022 End: 11-22-2022 calcium gluconate 2,000 mg in dextrose 5 % 100 mL IVPB (1 source) Start: 11-08-2020 calcium glucon ate 2,000 mg in dextrose 5 % 100 mL IVPB chlorthalidone 25 mg oral tablet (20 sources) Thiazide-like Diuretic Start: 08-14-2021 take 25 mg by mouth once daily Chlorthalidone Active 25 MG PO DAILY August 14, 2021 12:00am Start: 11-02-2020 End: 02-02-2021 take 25 mg by mouth once daily Chlorthalidone Discontinued 25 MG PO DAILY November 02, 2020 12:00am February 02, 2021 3:23pm cyclobenzaprine hydrochloride 10 mg oral tablet (1 source) Muscle Relaxant Start: 11-11-2020 cyclobenzaprine (FLEXERIL) tablet 10 mg docusate sodium 50 mg / sennosides, group home 8.6 mg oral tablet (1 source) Start: 11-08-2020 sennosides-docusate sodium (SENOKOT-S) 8.6-50 MG tablet 2 tablet 0.4 ml enoxaparin sodium 100 mg/ml prefilled syringe (1 source) Low Molecular Weight Heparin Start: 11-09-2020 enoxaparin (LOVENOX) injection 40 mg furosemide 20 mg oral tablet (20 sources) Loop Diuretic Start: 11-12-2020 End: 11-13-2020 take 1 tablet by mouth once daily furosemide (LASIX) 20 MG tablet Take 1 tablet by mouth daily for 7 days 7 tablet 0 11/13/2020 11/13/2020 Discontinued (Stop Taking at Discharge) Start: 11-09-2020 End: 11-12-2020 furosemide (LASIX) injection 40 mg 150 ml glucose 50 mg/ml injection (3 sources) Start: 11-08-2020 glucose (GLUTO SE) 40 % oral gel 15 g Start: 11-08-2020 dextrose 50 % IV solution Start: 11-08-2020 dextrose 5 % s olution lidocaine 0.04 mg/mg medicated patch (1 source) Antiarrhythmic, Amide Local Anesthetic Start: 11-09-2020 lidocaine 4 % external patch 1 patch 50 ml magnesium sulfate 40 mg/ml injection (1 source) Start: 11-08-2020 magnesium sulf ate 2000 mg in 50 mL IVPB premix metoprolol tartrate 50 mg oral tablet (7 sources) beta-Adrenergic Ariane Start: 11-11-2020 metopr olol tartrate (LOPRESSOR) tablet 50 mg Start: 11-11-2020 End: 11-11-2020 metoprolol (LOPRESSOR) injec tion 5 mg Start: 11-10-2020 End: 11-10-2020 metoprolol (LOPRESSOR) 5 MG/ 5ML injection Start: 11-10-2020 End: 11-10-2020 metoprolol (LOPRESSOR) injec tion 5 mg Start: 11-10-2020 End: 11-10-2020 metoprolol (LOPRESSOR) injec tion 2.5 mg Start: 11-10-2020 End: 11-10-2020 metoprolol (LOPRESSOR) injec tion 2.5 mg Start: 11-09-2020 End: 11-11-2020 metoprolol tartrate (LOPRESS OR) tablet 25 mg 2 ml ondansetron 2 mg/ml injection (1 source) Serotonin-3 Receptor Antagonist Start: 11-08-2020 ondansetron (ZOFRAN) injection 4 mg oxyCODONE (1 source) Opioid Agonist Start: 11-11-2020 oxyCODONE (ROXICODONE) immediate release tablet 5 mg polyethylene glycol [id number] mg powder for oral solution (1 source) Osmotic Laxative Start: 11-08-2020 polyethylene glycol (GLYCOLAX) packet 17 g microencapsulated potassium chloride 20 meq extended release oral tablet (20 sources) Start: 10-15-2021 Potassium Chlo ride (Klor-Con M20) 20 mEq tablet,ER particles/crystals Active 20 MEQ PO DAILY November 20, 2021 2:25pm Start: 06-14-2021 End: 11-20-2021 Potassium Chloride (Klor-Con M20) 20 mEq Tablet,Er Particles/Crystals Discontinued 40 MEQ PO DAILY WITH MEALS 14 June 14, 2021 1:00am November 20, 2021 2:26pm Start: 11-09-2020 End: 11-12-2020 potassium chloride (KLOR-CON M) extended release tablet 40 mEq Start: 11-08-2020 potassium chlo ride (KLOR-CON M) extended release tablet 20 mEq Start: 11-08-2020 potassium chlo ride 20 mEq/50 mL IVPB (Central Line) QUEtiapine 25 mg oral tablet (2 sources) Atypical Antipsychotic Start: 11-12-2020 QUEtiap ine (SEROQUEL) tablet 50 mg Start: 11-10-2020 End: 11-12-2020 QUEtiapine (SEROQUEL) tablet 25 mg rosuvastatin calcium 20 mg oral tablet (20 sources) HMG-CoA Reductase Inhibitor Start: 12-15-2020 take 20 mg by mouth at bedtime Rosuvastatin Active 20 MG PO AT BEDTIME December 15, 2020 12:00am Start: 11-13-2020 rosuvastatin ( CRESTOR) tablet 20 mg Start: 11-13-2020 take 1 tablet by luci th once daily rosuvastatin (CRESTOR) 20 MG tablet Take 1 tablet by mouth nightly 30 tablet 3 11/13/2020 Active 3 ml sodium chloride 9 mg/ml injection (3 sources) Start: 11-08-2020 sodium chlorid e flush 0.9 % injection 10 mL Start: 11-08-2020 0.9 % sodium c hloride infusion Start: 11-03-2020 End: 11-08-2020 take 1 dose intravenously twice daily 5-40 mL, Intravenous, EVERY 12 HOURS SCHEDULED (2 times per day), First dose on Fri11/03/20 at 2300 For Line Patency: Peripheral IV = 5 mL; Midline or Central Line = 10 mL/lumen. If following IV push medication, administer flush at same rate as the IV push. Flush volume is determined by type of infusion therapy being given. For non-viscous solutions use: Peripheral IV = 5 mL Midline or Central Line = 10 mL/lumen For viscous solutions (i.e. blood components, parenteral nutrition, contrast media, or after obtaining blood sample) use: Peripheral IV = 10 mL Midline or Central Line = 20 mL/lumen traMADol hydrochloride 50 mg oral tablet (20 sources) Opioid Agonist Start: 06-23-2023 End: 07-21-2023 take 50 mg by mouth once daily Tramadol Active 50 MG PO DAILY July 17, 2023 12:00am Start: 05-21-2023 Start: 04-14-2023 End: 05-12-2023 Start: 11-13-2020 End: 11-20-2020 take 2 tablets by mouth every eight hours as needed for pain traMADol (ULTRAM) 50 MG tablet Indications: S/P CABG (coronary artery bypass graft) , Stress hyperglycemia , Prediabetes , Coronary artery disease of [place] artery of [place] heart with stable angina pectoris (HCC) Take 2 tablets by mouth every 8 hours as needed for Pain for up to 7 days. 21 tablet 0 11/13/2020 11/20/2020 Active Start: 11-02-2020 End: 12-16-2022 take 100 mg by mouth three times daily Tramadol Discontinued 100 MG PO THREE TIMES A DAY November 02, 2020 12:00am December 16, 2022 3:27am Start: 09-15-2020 take 1 tablet by luci th twice daily traMADol 50 MG tablet Take 1 tablet by mouth 2 times daily. 0 09/15/2020 Active Start: 09-15-2020 End: 11-12-2020 traMADol (ULTRAM) tablet 50 mg Start: 04-04-2014 End: 04-04-2014 End: 11-13-2020 take 1 tablet by mouth every six hours as needed for pain, then take 5 tablets by mouth once daily as needed for pain traMADol (ULTRAM) 50 MG tablet Take 1 or 2 tablets by mouth every 6 hours PRN moderate pain - max 5 tablets a day 0 11/13/2020 Discontinued (Stop Taking at Discharge) valsartan 320 mg oral tablet (20 sources) Angiotensin 2 Receptor Ariane Start: 06-12-2021 take 320 mg by mouth once daily Valsartan Active 320 MG PO DAILY June 12, 2021 1:00am Start: 11-12-2020 End: 11-13-2020 valsartan (DIOVAN) tablet 80 mg Start: 08-01-2020 End: 04-03-2021 take 320 mg by mouth once daily Valsartan Discontinued 320 MG PO DAILY December 15, 2020 12:00am April 03, 2021 12:24pm Completed/Discontinued Medications Medication Drug Class(es) Dates Sig (Normalized) Sig (Original) acetaminophen 325 mg / HYDROcodone bitartrate 5 mg oral tablet (20 sources) Opioid Agonist Start: 10-07-2016 End: 10-31-2016 Start: 04-03-2012 End: 05-06-2012 acetaminophen 650 mg / propoxyphene napsylate 100 mg oral tablet (20 sources) Opioid Agonist Start: 02-26-2010 End: 03-26-2010 acyclovir 400 mg oral tablet (20 sources) Herpesvirus Nucleoside Analog DNA Polymerase Inhibitor, Herpes Simplex Virus Nucleoside Analog DNA Polymerase Inhibitor, Herpes Zoster Virus Nucleoside Analog DNA Polymerase Inhibitor Start: 02-08-2013 End: 08-26-2014 albuterol 0.833 mg/ml / ipratropium bromide 0.167 mg/ml inhalation solution (1 source) Anticholinergic, beta2-Adrenergic Agonist Start: 11-11-2020 End: 11-11-2020 ipratropium-albutero l (DUONEB) nebulizer solution 1 ampule amLODIPine 5 mg oral tablet (20 sources) Dihydropyridine Calcium Channel Ariane Start: 12-10-2013 End: 01-12-2015 atenolol 25 mg oral tablet (20 sources) beta-Adrenergic Ariane Start: 01-27-2014 End: 01-27-2014 atorvastatin 80 mg oral tablet (1 source) HMG-CoA Reductase Inhibitor Start: 11-03-2020 End: 11-08-2020 atorvastatin (LIPITOR) tablet 80 mg azithromycin 500 mg oral tablet (20 sources) Macrolide Antimicrobial Start: 04-22-2019 End: 09-14-2019 Start: 07-13-2010 End: 07-16-2010 bifidobacterium animalis [id number] unt / lactobacillus acidophilus [id number] unt oral capsule (20 sources) Start: 05-20-2019 End: 12-08-2020 carisoprodol 350 mg oral tab let (20 sources) Muscle Relaxant Start: 04-14-2023 End: 05-21-2023 Start: 06-12-2021 End: 06-06-2022 take 350 mg by mouth twice daily Carisoprodol Discontinued 350 MG PO TWICE A DAY June 12, 2021 1:00am June 06, 2022 4:29pm take 1 tablet by luci th twice daily as needed for muscle spasms carisoprodol (SOMA) 350 MG tablet Take 350 mg by mouth 2 times daily as needed for Muscle spasms. 0 Active ceFAZolin 2000 mg injection (2 sources) Cephalosporin Antibacterial Start: 11-08-2020 End: 11-11-2020 ceFAZolin (ANCEF) 2000 mg in dextrose 4 % 100 mL IVPB (premix) cefdinir 300 mg oral capsule (20 sources) Cephalosporin Antibacterial Start: 02-03-2023 End: 02-13-2023 cefuroxime 500 mg oral tablet (3 sources) Cephalosporin Antibacterial Start: 12-16-2022 End: 07-17-2023 take 500 mg by mouth twice daily Cefuroxime Axetil Discontinued 500 MG PO TWICE A DAY December 16, 2022 12:00am July 17, 2023 2:39pm cephalexin 500 mg oral capsule (20 sources) Cephalosporin Antibacterial Start: 08-20-2019 End: 08-30-2019 Start: 10-08-2018 End: 10-18-2018 cetirizine hydrochloride 10 mg oral tablet (20 sources) Histamine-1 Receptor Antagonist Start: 02-26-2010 End: 12-03-2011 chlorhexidine gluconate 1.2 mg/ml mouthwash (3 sources) Start: 11-07-2020 End: 11-09-2020 chlorhexidine (PERIDEX) 0.12 % solution 15 mL Start: 11-07-2020 End: 11-08-2020 chlorhexidine (HIBICLENS) 4 % liquid ciprofloxacin 250 mg oral ta blet (20 sources) Quinolone Antimicrobial Start: 11-22-2022 End: 11-29-2022 Start: 03-10-2019 End: 03-17-2019 Start: 02-05-2018 End: 02-10-2018 codeine phosphate 2 mg/ml / promethazine hydrochloride 1.25 mg/ml oral solution (20 sources) Opioid Agonist, Phenothiazine Start: 03-31-2015 End: 06-18-2016 dexamethasone 4 mg oral tablet (12 sources) Corticosteroid Start: 06-14-2021 End: 08-14-2021 take 6 mg by mouth once daily Dexamethasone Discontinued 6 MG PO DAILY 04 11June 14, 2021 1:00am August 14, 2021 3:12pm Start: 03-17-2021 End: 04-03-2021 take 1 tablet by mouth once daily Dexamethasone (Decadron) 6 mg tablet Discontinued 6 MG PO DAILY 02 11March 17, 2021 1:00am April 03, 2021 10:24am 100 ml dexmedetomidine 0.004 mg/ml injection (1 source) Central alpha-2 Adrenergic Agonist Start: 11-10-2020 End: 11-12-2020 dexmedetomidine (PRECEDEX) 400 mcg in sodium chloride 0.9 % 100 mL infusion dexmedetomidine (PRECEDEX) 25 mcg in sodium chloride 0.9 % 50 mL IV bolus (2 sources) Start: 11-11-2020 End: 11-11-2020 dexmedetomidine (PRECEDEX) 25 mcg in sodium chloride 0.9 % 50 mL IV bolus Start: 11-10-2020 End: 11-10-2020 dexmedetomidine (PRECEDEX) 2 5 mcg in sodium chloride 0.9 % 50 mL IV bolus doxycycline hyclate 100 mg o ral capsule (20 sources) Tetracycline-class Drug Start: 02-27-2023 End: 03-09-2023 eszopiclone 3 mg oral tablet (20 sources) Start: 2018 End: 09-29-2018 Start: 10-13-2017 End: 10-13-2017 24 hr felodipine 5 mg extended release oral tablet (20 sources) Dihydropyridine Calcium Channel Ariane Start: 01-02-2018 End: 01-02-2018 ferrous sulfate 325 mg oral tablet (20 sources) Start: 02-22-2021 End: 11-20-2021 take 1 tablet by mouth twice daily Ferrous Sulfate (Iron) 325 mg (65 mg iron) tablet Discontinued 325 MG PO TWICE A DAY 60 April 04, 2021 1:00am June 14, 2021 3:58pm fluconazole 150 mg oral tablet (20 sources) Azole Antifungal Start: 01-23-2021 End: 02-05-2021 Start: 09-18-2019 End: 12-07-2019 gabapentin 300 mg oral capsule (20 sources) Anti-epileptic Agent Start: 08-17-2020 End: 08-17-2020 250 ml heparin sodium, porcine 100 unt/ml injection (3 sources) Unfractionated Heparin, Anti-coagulant Start: 11-03-2020 End: 11-03-2020 heparin (porcine) injection 4,000 Units Start: 11-03-2020 End: 11-04-2020 heparin 25,000 units in dext patience 5% 250 mL (premix) infusion Start: 11-03-2020 End: 11-04-2020 heparin (porcine) injection 2,000 Units homatropine methylbromide 0.3 mg/ml / HYDROcodone bitartrate 1 mg/ml oral solution (20 sources) Opioid Agonist, Cholinergic Muscarinic Agonist Start: 04-23-2022 End: 06-06-2022 Hydrocodone-Homatropine (Hycodan) 5-1.5 mg/5 mL (5 mL) syrup Discontinued 5 ML PO EVERY 6 HOURS 60 3 April 23, 2022 June 06, 2022 4:29pm Start: 04-30-2013 End: 05-10-2013 1 ml hydrALAZINE hydrochloride 20 mg/ml injection (1 source) Arteriolar Vasodilator Start: 11-09-2020 End: 11-11-2020 hydrALAZINE (APRESOLINE) injection 10 mg 1 ml HYDROmorphone hydrochloride 1 mg/ml cartridge (3 sources) Opioid Agonist Start: 11-09-2020 End: 11-09-2020 HYDROmorphone (DILAUDID) injection 1 mg Start: 11-09-2020 End: 11-09-2020 HYDROmorphone (DILAUDID) inj ection 1 mg Start: 11-08-2020 End: 11-08-2020 HYDROmorphone (DILAUDID) 1 M G/ML injection ibuprofen 200 mg oral tablet (1 source) Nonsteroidal Anti-inflammatory Drug Start: 11-04-2020 End: 11-08-2020 ibuprofen (ADVIL;MOTRIN) tablet 600 mg insulin glargine 100 unt/ml injectable solution (1 source) Insulin Analog Start: 11-09-2020 End: 11-09-2020 insulin glargine (LANTUS) injection vial 18 Units insulin lispro 100 unt/ml injectable solution (2 sources) Insulin Analog Start: 11-09-2020 End: 11-12-2020 insulin lispro (HUMALOG) injection vial 0-6 Units Start: 11-09-2020 End: 11-10-2020 insulin lispro (HUMALOG) inj ection vial 4 Units insulin, regular, human 100 unt/ml injectable solution (2 sources) Insulin Start: 11-09-2020 End: 11-09-2020 insulin regular (HUMULIN R;NOVOLIN R) injection 4 Units Start: 11-08-2020 End: 11-10-2020 insulin regular (MYXREDLIN) 100 units in sodium chloride 0.9 % 100 ml infusion 1 ml ketorolac tromethamine 15 mg/ml cartridge (5 sources) Nonsteroidal Anti-inflammatory Drug, Cyclooxygenase Inhibitor Start: 11-12-2020 End: 11-12-2020 ketorolac (TORADOL) injection 15 mg Start: 11-08-2020 End: 11-11-2020 ketorolac (TORADOL) injectio n 15 mg labetalol hydrochloride 100 mg oral tablet (20 sources) beta-Adrenergic Ariane Start: 11-02-2020 End: 02-02-2021 take 200 mg by mouth twice daily Labetalol Discontinued 200 MG PO TWICE A DAY November 02, 2020 12:00am February 02, 2021 3:22pm Start: 10-05-2020 End: 06-12-2021 take 200 mg by mouth twice daily Labetalol Discontinued 200 MG PO TWICE A DAY February 02, 2021 12:00am April 03, 2021 12:24pm Start: 10-05-2020 End: 11-08-2020 take 100 mg by mouth twice daily 100 mg, Oral, 2 TIMES DAILY, First dose on Fri11/03/20 at 2300 lansoprazole 30 mg delayed release oral capsule (20 sources) Proton Pump Inhibitor levoFLOXacin 750 mg oral tablet (20 sources) Quinolone Antimicrobial Start: End: take 750 mg by mouth once daily Levofloxacin Discontinued 750 MG PO DAILY January 12, 2021 12:00am January 16, 2021 2:54pm Start: 05-18-2014 End: 10-18-2016 lisinopril 40 mg oral tablet (20 sources) Angiotensin Converting Enzyme Inhibitor Start: 05-28-2016 End: 06-18-2016 1 ml LORazepam 2 mg/ml injection (3 sources) Benzodiazepine Start: 11-10-2020 End: 11-10-2020 LORazepam (ATIVAN) 2 MG/ML injection Start: 11-10-2020 End: 11-10-2020 LORazepam (ATIVAN) injection 1 mg Start: 11-06-2020 End: 11-06-2020 LORazepam (ATIVAN) tablet 0. 25 mg losartan potassium 100 mg oral tablet (20 sources) Angiotensin 2 Receptor Ariane Start: 11-24-2017 End: 12-25-2017 melatonin 5 mg oral tablet (2 sources) Start: 11-03-2020 End: 11-08-2020 melatonin tablet 5 mg 10 ml methocarbamol 100 mg/ml injection (1 source) Muscle Relaxant Start: 11-08-2020 End: 11-09-2020 methocarbamol (ROBAXIN) injection 1,000 mg mupirocin 0.02 mg/mg topical ointment (2 sources) RNA Synthetase Inhibitor Antibacterial Start: 11-07-2020 End: 11-11-2020 mupirocin (BACTROBAN) 2 % ointment niCARdipine (CARDENE) 25 mg in sodium chloride 0.9 % 250 mL infusion (1 source) Start: 11-08-2020 End: 11-09-2020 niCARdipine (CARDENE) 25 mg in sodium chloride 0.9 % 250 mL infusion nitrofurantoin, macrocrystals 100 mg oral capsule (20 sources) Nitrofuran Antibacterial Start: 03-10-2019 End: 03-10-2019 nitrofurantoin, macrocrystals 25 mg / nitrofurantoin, monohydrate 75 mg oral capsule (20 sources) Nitrofuran Antibacterial Start: 09-21-2020 End: 09-28-2020 Start: 02-09-2018 End: 02-16-2018 250 ml nitroglycerin 0.2 mg/ml injection (1 source) Nitrate Vasodilator Start: 11-08-2020 End: 11-09-2020 nitroGLYCERIN 50 mg in dextrose 5% 250 mL infusion pantoprazole 40 mg delayed release oral tablet (20 sources) Proton Pump Inhibitor Start: 08-01-2020 End: 06-12-2021 take 1 tablet by mouth once daily Pantoprazole (Protonix) 40 mg tablet,delayed release (DR/EC) Discontinued 40 MG PO DAILY April 04, 2021 1:00am June 12, 2021 10:58pm perflutren lipid microspheres (DEFINITY) injection 1.65 mg (1 source) Start: 11-04-2020 End: 11-07-2020 perflutren lipid microspheres (DEFINITY) injection 1.65 mg polysaccharide iron complex 150 mg oral capsule (20 sources) pravastatin sodium 40 mg oral tablet (20 sources) HMG-CoA Reductase Inhibitor Start: 08-01-2020 End: 12-08-2020 Start: 08-01-2020 End: 11-13-2020 pravastatin (PRAVACHOL) tabl et 40 mg predniSONE 20 mg oral tablet (20 sources) Start: 07-22-2023 End: 08-12-2023 Start: 04-23-2022 End: 06-06-2022 take 40 mg by mouth once daily Prednisone Discontinued 40 MG PO DAILY April 23, 2022 1:00am June 06, 2022 4:28pm 20 ml propofol 10 mg/ml injection (1 source) General Anesthetic Start: 11-08-2020 End: 11-08-2020 propofol injection temazepam 15 mg oral capsule (20 sources) Benzodiazepine Start: 08-26-2014 End: 08-26-2014 tiZANidine 2 mg oral tablet (1 source) Central alpha-2 Adrenergic Agonist Start: 11-09-2020 End: 11-10-2020 tiZANidine (ZANAFLEX) tablet 2 mg traZODone hydrochloride 50 mg oral tablet (20 sources) Serotonin Reuptake Inhibitor Start: 03-27-2018 End: 03-16-2019 triamcinolone acetonide 0.25 mg/ml topical cream (20 sources) Corticosteroid Start: 04-11-2020 End: 12-08-2020 zolpidem tartrate 5 mg oral tablet (20 sources) gamma-Aminobutyric Acid-ergic Agonist Start: 11-09-2020 End: 11-10-2020 zolpidem (AMBIEN) tablet 2.5 mg Start: 11-06-2020 End: 11-08-2020 zolpidem (AMBIEN) tablet 2.5 mg Start: 02-28-2014 End: 02-28-2014 Problems Active Problems Problem Classification Problem Date Documented Da te Episodic/Chronic Abdominal pain (20 sources) Abdominal pain; Translations: [Unspecified abdominal pain] 03-16-2019 Episodic Acute bronchitis (20 sources) Acute bronchitis; Translations: [Acute bronchitis, unspecified] 06-21-2021 Episodic Acute posthemorrhagic anemia (20 sources) Acute posthemorrhagic anemia; Translations: [Acute posthemorrhagic anemia] 07-14-2010 Episodic Administrative/social admission (20 sources) Issue of repeat prescriptions 06-21-2021 Episodic Allergic reactions (20 sources) Contact dermatitis; Translations: [Unspecified contact dermatitis, unspecified cause] 06-21-2021 Episodic Anxiety disorders (20 sources) Agoraphobia; Translations: [Agoraphobia, unspecified] 01-20-2023 Chronic Biliary tract disease (3 sources) Cholangiectasis; Translations: [Other specified diseases of biliary tract] 12-24-2022 Chronic Chronic kidney disease (18 sources) Chronic kidney disease stage 3; Translations: [Chronic kidney disease, Stage III (moderate)] 07-22-2023 Chronic Chronic obstructive pulmonary disease and bronchiectasis (20 sources) Bronchitis; Translations: [Bronchitis, not specified as acute or chronic] 05-01-2022 Episodic Coronary atherosclerosis and other heart disease (20 sources) Coronary atherosclerosis; Translations: [Atherosclerotic heart disease of [place] coronary artery with other forms of angina pectoris] Onset: Chronic Deficiency and other anemia (20 sources) Anemia; Translations: [Anemia, unspecified] 06-05-2022 Episodic Deficiency and other anemia (20 sources) Iron deficiency anemia secondary to inadequate dietary iron intake; Translations: [Other iron deficiency anemias] 01-20-2023 Episodic Diabetes mellitus with complications (20 sources) Type 2 diabetes mellitus; Translations: [Type 2 diabetes mellitus with other specified complication] 01-20-2023 Chronic Disorders of lipid metabolism (20 sources) Hyperlipidemia; Translations: [Hyperlipidemia, unspecified] Onset: Chronic Esophageal disorders (20 sources) Gastroesophageal reflux disease; Translations: [Gastro-esophageal reflux disease without esophagitis] Onset: 3 Chronic Essential hypertension (20 sources) Essential hypertension; Translations: [Essential (primary) hypertension] Onset: 3 Chronic Fluid and electrolyte disorders (20 sources) Acute hypokalemia; Translations: [Hypokalemia] Episodic Genitourinary symptoms and ill-defined conditions (20 sources) Dysuria; Translations: [Dysuria] 06-21-2021 Episodic Hypertension with complications and secondary hypertension (7 sources) Hypertensive urgency ; Translations: [Hypertensive urgency] Chronic Immunizations and screening for infectious disease (20 sources) Requires vaccination; Translations: [Encounter for immunization] 06-21-2021 Episodic Influenza (20 sources) Influenza due to Influenza A virus; Translations: [Influenza due to other identified influenza virus with other respiratory manifestations] 05-01-2022 Episodic Malaise and fatigue (20 sources) Fatigue; Translations: [Other fatigue] 01-20-2023 Episodic Mycoses (20 sources) Mycosis; Translations: [Candidiasis, unspecified] 06-21-2021 Episodic Other acquired deformities (2 sources) Other secondary scoliosis, site unspecified; Translations: [Other secondary scoliosis, site unspecified] Onset: 3 Chronic Other aftercare (20 sources) Drug indicated; Translations: [Other terminal press operator (current) drug therapy] 06-21-2021 Episodic Other aftercare (20 sources) Post-discharge follow-up; Translations: [Encounter for follow-up examination after completed treatment for conditions other than malignant neoplasm] 12-08-2020 Episodic Other circulatory disease (20 sources) Subjective carotid bruit; Translations: [Other specified symptoms and signs involving the circulatory and respiratory systems] 01-20-2023 Episodic Other connective tissue disease (20 sources) Fibromyalgia; Translations: [Fibromyalgia] 01-20-2023 Episodic Other connective tissue disease (20 sources) Bursitis of hip; Translations: [Trochanteric bursitis, unspecified hip] 03-26-2010 Episodic Other diseases of kidney and ureters (20 sources) Cyst of kidney; Translations: [Cyst of kidney, acquired] 01-12-2015 Episodic Other diseases of kidney and ureters (3 sources) Acute renal insufficiency; Translations: [Disorder of kidney and ureter, unspecified] 12-24-2022 Episodic Other gastrointestinal disorders (20 sources) Diarrhea; Translations: [Diarrhea, unspecified] 05-20-2019 Episodic Other liver diseases (20 sources) Liver enzymes abnormal; Translations: [Abnormal levels of other serum enzymes] 01-20-2023 Episodic Other lower respiratory disease (6 sources) Pulmonary edema; Translations: [Chronic pulmonary edema] 06-22-2021 Chronic Other lower respiratory disease (1 source) Chronic pulmonary edema; Translations: [Pulmonary congestion and hypostasis] Chronic Other lower respiratory disease (6 sources) Hypoxemia; Translations: [Hypoxemia] 06-22-2021 Episodic Other lower respiratory disease (20 sources) Dyspnea; Translations: [Dyspnea, unspecified] 06-05-2022 Episodic Other lower respiratory disease (6 sources) Respiratory distress; Translations: [Acute respiratory distress] 06-22-2021 Episodic Other lower respiratory disease (6 sources) Hypoxia; Translations: [Hypoxemia] 08-14-2021 Episodic Other lower respiratory disease (1 source) Acute respiratory distress; Translations: [Other respiratory abnormalities] Episodic Other lower respiratory disease (20 sources) Cough; Translations: [Cough] 05-01-2022 Episodic Other nervous system disorders (20 sources) Chronic pain; Translations: [Other chronic pain] 10-19-2020 Chronic Other nervous system disorders (1 source) Encephalopathy, unspecified; Translations: [Encephalopathy, unspecified] Onset: Chronic Other nervous system disorders (20 sources) Diaz's palsy; Translations: [Diaz's palsy] 01-20-2023 Episodic Other nutritional; endocrine; and metabolic disorders (3 sources) Obese class I; Translations: [Obesity, unspecified] Onset: 10-11-2020 Chronic Other nutritional; endocrine; and metabolic disorders (20 sources) Overweight in adulthood with body mass index of 25 or more but less than 30; Translations: [Body mass index (BMI) 25.0-25.9, adult] 06-21-2021 Episodic Other nutritional; endocrine; and metabolic disorders (20 sources) Overweight; Translations: [Overweight] 06-21-2021 Episodic Other nutritional; endocrine; and metabolic disorders (20 sources) Body mass index 25-29 - overweight; Translations: [Body mass index (BMI) 25.0-25.9, adult] 06-21-2021 Episodic Other upper respiratory disease (20 sources) Allergic rhinitis; Translations: [Allergic rhinitis, unspecified] 01-20-2023 Chronic Other upper respiratory infections (20 sources) Sinusitis; Translations: [Chronic sinusitis, unspecified] 05-20-2019 Chronic Other upper respiratory infections (20 sources) Acute sinusitis; Translations: [Acute sinusitis, unspecified] 06-21-2021 Episodic Pancreatic disorders (not diabetes) (20 sources) Cyst and pseudocyst of pancreas 02-02-2013 Episodic Pneumonia (except that caused by tuberculosis or sexually transmitted disease) (20 sources) Pneumonia; Translations: [Pneumonia, unspecified organism] 12-25-2020 Episodic Residual codes; unclassified (1 source) Restlessness and agitation; Translations: [Restlessness and agitation] Onset: 4 Chronic Residual codes; unclassified (20 sources) Body mass index 20-24 - normal; Translations: [Body mass index (BMI) 23.0-23.9, adult] 01-20-2023 Episodic Residual codes; unclassified (20 sources) Influenza vaccination declined; Translations: [Immunization not carried out because of patient refusal] 01-20-2023 Episodic Residual codes; unclassified (20 sources) Insomnia; Translations: [Insomnia, unspecified] 01-20-2023 Episodic Residual codes; unclassified (20 sources) Mammogram declined; Translations: [Procedure and treatment not carried out because of patient's decision for unspecified reasons] 01-20-2023 Episodic Respiratory failure; insufficiency; arrest (adult) (20 sources) Acute respiratory failure; Translations: [Acute respiratory failure with hypoxia] 08-14-2021 Episodic Spondylosis; intervertebral disc disorders; other back problems (20 sources) Sacroiliitis, not elsewhere classified 12-15-2012 Chronic Spondylosis; intervertebral disc disorders; other back problems (20 sources) Lumbar radiculopathy; Translations: [Radiculopathy, lumbar region] Onset: 1 Episodic Sprains and strains (20 sources) Strain of neck muscle; Translations: [Strain of muscle, fascia and tendon at neck level, initial encounter] 04-03-2017 Episodic Unclassified (1 source) Acidosis, unspecified; Translations: [Acidosis, unspecified] Onset: 4 Unclassified (1 source) Other toxic encephalopathy; 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] Onset: 4 Urinary tract infections (20 sources) Urinary tract infectious disease; Translations: [Urinary tract infection, site not specified] 11-27-2018 Episodic Viral infection (20 sources) Disease caused by 2019-nCoV; Translations: [COVID-19] 11-19-2021 Episodic Past or Other Problems Problem Classification Problem Date Documented Da te Episodic/Chronic Complications of surgical procedures or medical care (7 sources) Atrial fibrillation; Translations: [Other postprocedural complications and disorders of the circulatory system, not elsewhere classified] Onset: 11-10-2020 02-02-2021 Episodic Coronary atherosclerosis and other heart disease (2 sources) Presence of aortocoronary bypass graft; Translations: [Aortocoronary bypass status] Onset: 11-08-2020 Episodic Diabetes mellitus without complication (6 sources) Metabolic stress hyperglycemia; Translations: [Hyperglycemia, unspecified] Onset: 11-09-2020 Episodic Fracture of lower limb (3 sources) Nondisplaced unspecified fracture of left great toe, initial encounter for closed fracture; Translations: [Nondisplaced fracture of distal phalanx of left great toe, initial encounter for closed fracture] Onset: 01-24-2024 Episodic Nonspecific chest pain (20 sources) Chest pain at rest; Translations: [Chest pain, unspecified] Onset: 06-10-2024 08-17-2020 Episodic Other connective tissue disease (1 source) Rhabdomyolysis; Translations: [Rhabdomyolysis] Onset: 01-24-2024 Episodic Other lower respiratory disease (2 sources) Hypoxemia; Translations: [Hypoxemia] Onset: 01-24-2024 Episodic Results Test Name Value Interpretation Reference Range Facility Basic Metabolic Profile (BMP )on 12-02-2024 BUN/CRE 15.0 RATIO Normal 10- [facility] Comment on above: Performed By: #### L 100.0100, L500.2500 #### [facility] [address] [place], [place], [id number] Calcium [Mass/Vol] 9.0 mg/dL Normal 7.6-11.0 [facility] Comment on above: Performed By: #### L 100.0100, L500.2500 #### [facility] [address] [place], [address] Chloride [Moles/Vol] 105 mmol/L Normal 98-108 [facility] Comment on above: Performed By: #### L 100.0100, L500.2500 #### [facility] [address] [place], [address] CO2 [Moles/Vol] 23.7 mmol/L Normal 21.0-32.0 [facility] Comment on above: Performed By: #### L 100.0100, L500.2500 #### [facility] [address] [place], [address] Creatinine [Mass/Vol] 0.59 mg/dL Low 0.70-1.20 [facility] Comment on above: Performed By: #### L 100.0100, L500.2500 #### [facility] [address] [place], [address] GAP 11 Normal 5-15 [facility] Comment on above: Performed By: #### L 100.0100, L500.2500 #### [facility] [address] [place], [address] GFR/1.73 sq M.predicted among non-blacks MDRD (S/P/Bld) [Vol rate/Area] 93 mL/min/{1.73_m2} Normal >60 [facility] Comment on above: Result Comment: mL/m in/1.73m2 CKD-EPI Creatinine Equation (2020) Performed By: #### L 100.0100, L500.2500 #### [facility] [address] [place], [address] Glucose [Mass/Vol] 94 mg/dL Normal 70-99 [facility] Comment on above: Performed By: #### L 100.0100, L500.2500 #### [facility] [address] [place], [address] Potassium [Moles/Vol] 4.3 mmol/L Normal 3.3-5.1 [facility] Comment on above: Performed By: #### L 100.0100, L500.2500 #### [facility] [address] [place], [address] Sodium [Moles/Vol] 140 mmol/L Normal 133-145 [facility] Comment on above: Performed By: #### L 100.0100, L500.2500 #### [facility] [address] [place], [address] Urea nitrogen [Mass/Vol] 9 mg/dL Normal 4-19 [facility] Comment on above: Performed By: #### L 100.0100, L500.2500 #### [facility] [address] [place], [address] Lipid Profileon 12-02-2024 CHOL:HDL 2.00 Normal [facility] Comment on above: Performed By: #### L 100.0100, L500.2500 #### [facility] [address] [place], [address] Cholesterol [Mass/Vol] 130 mg/dL Normal <=200 [facility] Comment on above: Result Comment: Chol esterol level, Desirable <200 mg/dL Borderline high cholesterol 200-239 mg/dL High cholesterol >=240 mg/dL Recommendations of the NCEP Adult Treatment Panel for the following risk-cutoff thresholds for the [place] population. Performed By: #### L 100.0100, L500.2500 #### [facility] [address] [place], [address] Cholesterol in HDL [Mass/Vol] 65 mg/dL Normal [facility] Comment on above: Result Comment: [place] Cholesterol Education Program (NCEP) guidelines: <40 mg/dL: Low HDL-cholesterol (major risk factor for CHD) >= 60 mg/dL: High HDL-cholesterol (negative risk factor for CHD) HDL-cholesterol is affected by a number of factors, e.g. smoking, exercise, hormones, sex and age. Performed By: #### L 100.0100, L500.2500 #### [facility] [address] [place], [address] Cholesterol in LDL [Mass/Vol] 45 mg/dL Normal [facility] Comment on above: Result Comment: Bord blzuxr=888-041 mg/dL Higher Xdfr=827 mg/dL or greater Friedwald Equation for LDL-C Performed By: #### L 100.0100, L500.2500 #### [facility] [address] [place], [address] Cholesterol in VLDL [Mass/Vol] 20 mg/dL Normal 5-40 [facility] Comment on above: Performed By: #### L 100.0100, L500.2500 #### [facility] [address] [place], [address] Triglyceride [Mass/Vol] 100 mg/dL Normal [facility] Comment on above: Result Comment: The drugs N-Acetylcysteine and Metamizole may falsely depress this assay. Normal range: <150 mg/dL Borderline High: 150-199 mg/dL High: 200-499 mg/dL Very High: >500 mg/dL Performed By: #### L 100.0100, L500.2500 #### [facility] [address] [place], [address] 12 Lead EKGon 05-31-2024 12 Lead EKG [facility] [address] [place] [address] 12 Lead EKG 05/31/24 0514 MR#: [id number] Acct: [id number] Name: GENNY VARELA Rep #: [id number] : 1950 73 From: Giovanna Self MD Attending Dr: Dr. Ke Mccullough, DO Status: A DM JANICE Ordering Dr: Mandi Nguyen MD Date: 05/31/24 Location: [facility] Sex: F C Admitted: 05/30/24 Test Reason : PRE-OP Blood Pressure : */* mmHG Vent. Rate : 74 BPM Atrial Rate : 74 BPM P-R Int : 180 ms QRS Dur : 96 ms QT Int : 394 ms P-R-T Axes : -11 35 60 degrees QTcB Int : 437 ms Normal sinus rhythm Normal ECG When compared with ECG of 30-May-2024 01:00, MANUAL COMPARISON REQUIRED DATA IS UNCONFIRMED Confirmed by ABE BROOKS, GERALD ([id number]), associate editor JAYLA FIELDS ([id number]) on 05/31/2024 1:55:28 PM Referred By: SPEEDY Confirmed By: GERALD SELF MD 05/31/24 1355 Date Giovanna Self MD CC: Dr. Mandi Nguyen MD; Dr. Ke Mccullough DO; Dr. Chadd Walton MD Signed Normal [facility] Discharge Instructionon 05-06 Discharge Instruction [facility] Medical Records Department [address] [place] [id number] Instructions for Home/Discharge Instructions 05/31/24 1348 MR#: [id number] Acct: [id number] Name: GENNY VARELA Rep #: [id number] : 1950 73 From: Ke Mccullough DO PCP: Dr. Chadd Walton MD Status:ADM JANICE Discharge Instructions Diet Discharge Diet: No restrictions DC O2, CPAP, BIPAP needs Home O2 Discharge instructions: No Dressing / Incision Discharge Activity: Return to Normal Activity Weight Bearing Status: Full weight bearing Follow Up Care Test Results: Test results from this visit will be discussed in further detail at your follow-up appointment, if applicable. Discharge Plan Admission Admit Date/Time: 05/30/24 00:16 Primary Reason for Your Visit: chest pain,dehydration Attending Provider: Ke Mccullough Primary Care Provider: Chadd Walton Consulting Providers: Mandi Nguyen; Jesse Rojas Discharge Orders/Prescriptions Prescriptions: New aspirin 81 mg Tablet,Delayed Release (Dr/Ec) 81 mg PO BREAKFAST Qty: 0 0RF Continued rosuvastatin 20 mg Tablet 20 mg PO QHS labetalol 200 mg tablet 200 mg PO BID valsartan 320 mg tablet 320 mg PO DAILY Patient Comments: TAKE 1 TABLET BY MOUTH EVERY DAY pantoprazole [Protonix] 40 mg tablet,delayed release (DR/EC) 40 mg PO DAILY tramadol 50 mg tablet 50 mg PO Q8H Patient Comments: today was last dose for pt gabapentin 300 mg capsule 300 mg PO DAILY Discontinued chlorthalidone 25 mg tablet 25 mg PO DAILY potassium chloride [Klor-Con M20] 20 mEq tablet,ER particles/crystals 20 meq PO DAILY Referrals / Follow Up: Chadd Walton MD [Primary Care Provider] - See Referral Note (in two weeks) Disposition Disposition (needs filled in before D/C Order can be placed): Home, Self Care 05/31/24 4395 Ke Mccullough DO CC: Dr. Mandi Nguyen MD; Dr. Jesse Rojas DO; Dr. Chadd Walton MD Signed Normal [facility] Lipid Profileon 05-31-2024 Cholesterol [Mass/Vol] 115 mg/dL Normal 200 [facility] Comment on above: Result Comment: <200 mg/dL Desirable 200-240 mg/dL Borderline >240 mg/dL High Risk Performed By: #### L 100.0100, L500.2500 #### [facility] [address] [place], [address] Cholesterol in HDL [Mass/Vol] 55 mg/dL Normal [facility] Comment on above: Result Comment: The drugs N-Acetylcysteine and Metamizole may falsely depress this assay. Reference Range HDL <40 mg/dL Low HDL Cholesterol HDL >or= 60 mg/dL High HDL Cholesterol Performed By: #### L 100.0100, L500.2500 #### [facility] [address] [place], [address] Cholesterol in LDL [Mass/Vol] 38 mg/dL Normal 0-130 [facility] Comment on above: Performed By: #### L 100.0100, L500.2500 #### [facility] [address] [place], [address] Cholesterol in VLDL [Mass/Vol] 22 mg/dL Normal 5-40 [facility] Comment on above: Performed By: #### L 100.0100, L500.2500 #### [facility] [address] [place], [address] Triglyceride [Mass/Vol] 112 mg/dL Normal [facility] Comment on above: Result Comment: The drugs N-Acetylcysteine and Metamizole may falsely depress this assay. Serum Triglycerides Reference Interval Normal <150 mg/dL Borderline high 150 - 199 mg/dL High 200 - 499 mg/dL Very High > or = 500 mg/dL Performed By: #### L 100.0100, L500.2500 #### [facility] [address] [place], [address] Stress Reporton 05-31-2024 Stress Report [facility] [address] [place] [address] MR#: [id number] Acct: [id number] Name: GENNY VARELA Rep #: [id number] : 1950 73 From: Giovanna Self MD Primary Care: Dr. Chadd Walton MD Status: ADM JANICE Referring Dr: Sex: F C Stress Test Report Date: 05/31/2024 Procedure: Pharmacologic stress nuclear imaging study Indications: Chest pain Consent: Per the patient Procedure: The patient underwent pharmacologic (Regadenoson) evaluation with a peak heart rate of 104 beats per minute (71%predicted maximal heart rate) and a peak blood pressure of 162/82 mmHg. The baseline ECG demonstrated normal sinus rhythm. EKG during lexiscan infusion revealed no significant ischemic changes. EKG post infusion revealed no significant ischemic changes [There were no cardiac dysrhythmias pretest, during pharmacologic infusion, or recovery]. [There was no complaint of chest discomfort during pharmacologic infusion or recovery]. The examination was discontinued secondary to completion of protocol. Impression: 1. Lexiscan stress test test is negative for Lexiscan infusion induced EKG changes of ischemia. 2. Lexiscan stress test test is negative for Lexiscan infusion induced chest pain. 3. Results of the nuclear portion of the test is as below Myocardial perfusion imaging study: Technique: The patient was injected with 12 millicuries of technetium 99m Cardiolite and subsequently rest SPECT Cardiolite nuclear imaging was obtained in the horizontal long, vertical long, and short axis views. The patient underwent pharmacologic [Regadenoson 0.4mg] evaluation. Please see above for details. The patient was injected with 35.1 millicuries of technetium 99m Cardiolite and subsequently stress SPECT Cardiolite nuclear imaging was obtained in the horizontal long, vertical long, and short axis views. A gated Cardiolite study at peak stress was obtained. Interpretation: Rest and stress SPECT Cardiolite nuclear imaging status post realignment, normalization, and attenuation correction demonstrate no evidence of significant ischemia or infarction. Gated images reveal no significant regional wall motion abnormalities. The reported LVEF is 70%. Impression: 1. There is no evidence of significant ischemia or infarction. 2. Estimated ejection fraction is 70%. This note was generated with 6fusionation software. It may contain incorrect words, spelling, and punctuation that were not noted in checking the note before signing. 05/31/24 1313 Date Giovanna Self MD CC: Dr. Mandi Nguyen MD; Dr. Jesse Rojas DO; Dr. Ke Mccullough DO; Dr. Chadd Walton MD; Dr. Rob Rodriges DO Date Dictated: 05/31/241310 Date Transcribed: 05/31/24 131 Tennis Player: NN Signed Normal [facility] 12 Lead EKGon 05-30-2024 12 Lead EKG [facility] Cardi[facility] Services [address] [place] [address] 12 Lead EKG 05/30/24 0100 MR#: [id number] Acct: [id number] Name: GENNY VARELA Rep #: [id number] : 1950 73 From: Giovanna Self MD Attending Dr: Dr. Ke Mccullough DO Status: A DM JANICE Ordering Dr: Mandi Nguyen MD Date: 05/30/24 Location: [facility] Sex: F C Admitted: 05/30/24 Test Reason : CP ADMISSION Blood Pressure : */* mmHG Vent. Rate : 64 BPM Atrial Rate : 64 BPM P-R Int : 168 ms QRS Dur : 94 ms QT Int : 434 ms P-R-T Axes : 3 8 44 degrees QTcB Int : 447 ms Normal sinus rhythm Normal ECG When compared with ECG of 29-May-2024 19:59, MANUAL COMPARISON REQUIRED DATA IS UNCONFIRMED Confirmed by ABE BROOKS, GERALD ([id number]), associate editor JAYLA FIELDS ([id number]) on 05/31/2024 1:56:20 PM Referred By: SPEEDY Confirmed By: GERALD SELF MD 05/31/24 1356 Date Giovanna Self MD CC: Dr. Mandi Nguyen MD; Dr. Ke Mccullough DO; Dr. Chadd Walton MD Signed Normal [facility] CBC W/Diff, Automatedon 05-06 Absolute Lymph 0.70 X10 3/uL Low 0.83-4.51 [facility] Comment on above: Performed By: #### L 100.0100, L500.2500 #### [facility] [address] [place], [address] Absolute Neut 6.1 X10 3/uL Normal 2.0-7.7 [facility] Comment on above: Performed By: #### L 100.0100, L500.2500 #### [facility] [address] [place], [address] Basophils/100 WBC (Bld) 0.3 % Normal 0-1 [facility] Comment on above: Performed By: #### L 100.0100, L500.2500 #### [facility] [address] [place], [address] Eosinophils/100 WBC (Bld) 3.6 % Normal 0-5 [facility] Comment on above: Performed By: #### L 100.0100, L500.2500 #### [facility] [address] [place], [address] Erythrocyte distribution width (RBC) [Ratio] 13.3 % Normal 11.6-14.6 [facility] Comment on above: Performed By: #### L 100.0100, L500.2500 #### [facility] [address] [place], [address] Hematocrit (Bld) [Volume fraction] 34.8 % Low 37-47 [facility] Comment on above: Performed By: #### L 100.0100, L500.2500 #### [facility] [address] [place], [address] Hemoglobin (Bld) [Mass/Vol] 10.9 g/dL Low 12.0-15.0 [facility] Comment on above: Performed By: #### L 100.0100, L500.2500 #### [facility] [address] [place], [address] IG% 0.400 Normal 0.0-0.9 [facility] Comment on above: Result Comment: IG% - Immature Granulocytes (promyelocytes, myelocytes and metamyelocytes) > 1% indicates that a LEFT SHIFT is Present. Performed By: #### L 100.0100, L500.2500 #### [facility] [address] [place], [address] Lymphocytes/100 WBC (Bld) 9.2 % Low 19-41 [facility] Comment on above: Performed By: #### L 100.0100, L500.2500 #### [facility] [address] [place], [address] MCH (RBC) [Entitic mass] 32.2 pg High 27.0-32.0 [facility] Comment on above: Performed By: #### L 100.0100, L500.2500 #### [facility] [address] [place], [address] MCHC (RBC) [Mass/Vol] 31.3 g/dL Low 32-36 [facility] Comment on above: Performed By: #### L 100.0100, L500.2500 #### [facility] [address] [place], [address] MCV (RBC) [Entitic vol] 103.0 fL High 81-99 [facility] Comment on above: Performed By: #### L 100.0100, L500.2500 #### [facility] [address] [place], [address] Monocytes/100 WBC (Bld) 6.5 % Normal 0-10 [facility] Comment on above: Performed By: #### L 100.0100, L500.2500 #### [facility] [address] [place], [address] Neutrophils/100 WBC (Bld) 80.0 % High 47-70 [facility] Comment on above: Performed By: #### L 100.0100, L500.2500 #### [facility] [address] [place], [address] Nucleated RBC (Bld) [#/Vol] 0 10*3/uL Normal 0-5 [facility] Comment on above: Performed By: #### L 100.0100, L500.2500 #### [facility] [address] [place], [address] Platelet mean volume (Bld) [Entitic vol] 12.1 fL High 6.2-12.0 [facility] Comment on above: Performed By: #### L 100.0100, L500.2500 #### [facility] [address] [place], [address] Platelets (Bld) [#/Vol] 155 10*3/uL Normal 150-450 [facility] Comment on above: Performed By: #### L 100.0100, L500.2500 #### [facility] [address] [place], [address] RBC (Bld) [#/Vol] 3.38 10*6/uL Low 4.2-5.4 [facility] Comment on above: Performed By: #### L 100.0100, L500.2500 #### [facility] [address] [place], [address] RDW SD 50.1 fl High 35.1-43.9 [facility] Comment on above: Performed By: #### L 100.0100, L500.2500 #### [facility] [address] [place], [address] WBC (Bld) [#/Vol] 7.6 10*3/uL Normal 4.4-11.0 [facility] Comment on above: Performed By: #### L 100.0100, L500.2500 #### [facility] [address] [place], [address] Comprehensive Metabolic Prof ilon 05-30-2024 Albumin [Mass/Vol] 3.0 g/dL Low 3.2-5.0 [facility] Comment on above: Performed By: #### L 100.0100, L500.2500 #### [facility] [address] [place], [address] Albumin/Globulin [Mass ratio] 1.0 {ratio} Normal 0.9-2.4 [facility] Comment on above: Performed By: #### L 100.0100, L500.2500 #### [facility] [address] [place], [address] ALK P 230 U/L High 45-117 [facility] Comment on above: Performed By: #### L 100.0100, L500.2500 #### [facility] [address] [place], [address] ALT [Catalytic activity/Vol] 30 U/L Normal 13-56 [facility] Comment on above: Performed By: #### L 100.0100, L500.2500 #### [facility] [address] [place], [address] AST [Catalytic activity/Vol] 9 U/L Low 15-37 [facility] Comment on above: Performed By: #### L 100.0100, L500.2500 #### [facility] [address] [place], [address] Bilirubin [Mass/Vol] 0.40 mg/dL Normal 0.20-1.00 [facility] Comment on above: Result Comment: For patients on eltrombopag therapy, use of Dimension Trent TBIL is not recommended. Performed By: #### L 100.0100, L500.2500 #### [facility] [address] [place], [address] BUN/CRE 17.4 RATIO Normal 10-20 [facility] Comment on above: Performed By: #### L 100.0100, L500.2500 #### [facility] [address] [place], [address] CA,Total 8.4 mg/dL Low 8.5-10.1 [facility] Comment on above: Performed By: #### L 100.0100, L500.2500 #### [facility] [address] [place], [address] Chloride [Moles/Vol] 113 mmol/L High 98-107 [facility] Comment on above: Performed By: #### L 100.0100, L500.2500 #### [facility] [address] [place], [address] CO2 [Moles/Vol] 28.0 mmol/L Normal 21.0-32.0 [facility] Comment on above: Performed By: #### L 100.0100, L500.2500 #### [facility] [address] [place], [address] Creatinine [Mass/Vol] 0.92 mg/dL Normal 0.55-1.02 [facility] Comment on above: Result Comment: The validity of the calculated GFR GFRAA in patients over 70 years has not been determined. Clinical correlation is essential. Performed By: #### L 100.0100, L500.2500 #### [facility] [address] [place], [address] ECRCL 42.15 ml/min Normal [facility] Comment on above: Performed By: #### L 100.0100, L500.2500 #### [facility] [address] [place], [address] EST GFR - AA 76 mL/min Normal >60 [facility] Comment on above: Result Comment: Afri can Czech GFR Calc Performed By: #### L 100.0100, L500.2500 #### [facility] [address] [place], [address] GAP 2 Low 5-15 [facility] Comment on above: Performed By: #### L 100.0100, L500.2500 #### [facility] [address] [place], [address] GFR/1.73 sq M.predicted among non-blacks MDRD (S/P/Bld) [Vol rate/Area] 63 mL/min/{1.73_m2} Normal >60 [facility] Comment on above: Result Comment: Non- GFR Calc Performed By: #### L 100.0100, L500.2500 #### [facility] [address] [place], [address] Globulin (S) [Mass/Vol] 2.9 g/dL Normal 2.2-4.2 [facility] Comment on above: Performed By: #### L 100.0100, L500.2500 #### [facility] [address] [place], [address] Glucose [Mass/Vol] 98 mg/dL Normal 74-106 [facility] Comment on above: Performed By: #### L 100.0100, L500.2500 #### [facility] [address] [place], [address] Potassium [Moles/Vol] 4.4 mmol/L Normal 3.5-5.1 [facility] Comment on above: Performed By: #### L 100.0100, L500.2500 #### [facility] [address] [place], [address] Sodium [Moles/Vol] 143 mmol/L Normal 136-145 [facility] Comment on above: Performed By: #### L 100.0100, L500.2500 #### [facility] [address] [place], [address] T PROT 5.9 g/dL Low 6.4-8.2 [facility] Comment on above: Performed By: #### L 100.0100, L500.2500 #### [facility] [address] [place], [address] Urea nitrogen [Mass/Vol] 16 mg/dL Normal 7-18 [facility] Comment on above: Performed By: #### L 100.0100, L500.2500 #### [facility] [address] [place], [address] [facility] H&P Exam - Hospitalist [facility] Medical Records Department [address] [place] [address] H P Exam - Hospitalist 05/30/24 0015 MR#: [id number] Acct: [id number] Name: GENNY VARELA Rep #: [id number] : 1950 73 From: Mandi Nguyen MD PCP: Dr. Chadd Walton MD Status:ADM JANICE Location: [place] [address] HPI - General General Date of Admission: 05/30/24 Date of Service: 05/30/24 Chief Complaint: Chest pain HPI Narrative The patient is a 73 y/o F w/ PMHx: CAD s/p CABG x 5, HTN, HLD, PAF, Chronic anemia, GERD who presents to the [facility] ED on 05/30/24 with 2-day history of ongoing persistent waxing and waning midsternal chest pressure varying from 6-10 out of 10 in severity with no radiation worse with exertion with associated dyspnea, worse with exertion with nonproductive cough, decreased appetite as well as nausea and nonbilious emesis with no recent ill contacts that she is aware of prompt eventual ED evaluation to be cautious. Workup in the ED included T98.2, heart 71, BP 122/52, respiratory rate 19, 94% on room air with most recent repeat vitals heart rate 62, BP 104/53, respiratory rate 18, 97% on room air, CBC with WC 6.1, hemoglobin 0.3, MCV 100.8, platelet 169 without marked shift, CMP with chloride 109, BUN/creatinine 20/1.28, GFR 43, glucose 144, alk phos 252 otherwise hepatic profile not marked appearing, initial troponin 6 with repeat delta 8, CT abdomen pelvis with increasing postcholecystectomy biliary dilatation otherwise no acute findings, chest x-ray with no acute cardiopulmonary findings, rapid SARS COVID/influenza/RSV PCR negative, EKG with sinus rhythm with nonspecific changes with no acute evidence of ischemia. In the ED patient is for Zofran 4 mg IV x 1 as well as morphine 4 mg IV x 1. [facility] Medical History Nondisplaced fracture of distal phalanx of left great toe Fracture of distal phalanx of left great toe Medication side effect Toxic metabolic encephalopathy Agitation Acidosis, lactic Closed nondisplaced fracture of left great toe Rhabdomyolysis Preop cardiovascular exam Dyspnea Acute respiratory failure with hypoxia COVID-19 Anemia Chronic pain Facial droop Postoperative atrial fibrillation (11/10/20) Essential hypertension Atherosclerosis of [place] coronary artery of [place] heart without angina pectoris Pinched vertebral nerve Scoliosis GERD (gastroesophageal reflux disease) HLD (hyperlipidemia) History of back pain Home Medications ???Medication ???Instructions ???Recorded ???Last Taken ???Type rosuvastatin 20 mg tablet 20 mg PO QHS cholesterol 12/15/20 07/16/23 History labetalol 200 mg tablet 200 mg PO BID Check with primary 06/12/21 07/17/23 History doctor pantoprazole 40 mg tablet,delayed 40 mg PO DAILY Check with primary 06/12/21 07/17/23 History release (Protonix) doctor valsartan 320 mg tablet 320 mg PO DAILY Check with primary 06/12/21 07/17/23 History doctor chlorthalidone 25 mg tablet 25 mg PO DAILY 08/14/21 07/17/23 History potassium chloride 20 mEq 20 meq PO DAILY 11/20/21 07/17/23 History tablet,extended release(part/cryst) (Klor-Con M) tramadol 50 mg tablet 50 mg PO Q8H pain 07/17/23 07/17/23 History gabapentin 300 mg capsule 300 mg PO DAILY 01/20/24 Unknown History Allergy/AdvReac Type Severity Reaction Status Date / Time levofloxacin Allergy Severe leg pain Verified 01/20/24 14:17 amiodarone Allergy mental Verified 01/20/24 14:17 confusion Penicillins Allergy Unknown Verified 01/20/24 14:17 Sulfa (Sulfonamide Allergy Rash Verified 01/20/24 14:17 Antibiotics) ciprofloxacin AdvReac Rash Verified 01/20/24 14:17 lorazepam (From Ativan) AdvReac I went Verified 01/20/24 14:17 crazy Family History Mother Alcoholism Father Hypertension Brother Diabetes Sister Diabetes Hypertension Sister No problems noted. Son Hypertension Other Kidney disease Surgical History History of left heart catheterization (11/03/20) History of appendectomy H/O coronary artery bypass surgery (11/08/20) History of cholecystectomy Social History household members: spouse pets and animals: Yes (cats) Smoking Status: Never smoker alcohol intake: never substance use type: does not use caffeine: Yes Type: carbonated beverages ROS ROS Narrative Admission Review of Systems: CONSTITUTIONAL: No weight loss, fever, chills, + weakness or fatigue. HEENT: Eyes: No visual loss, blurred vision, double vision or yellow sclerae. Ears, Nose, Throat: No hearing loss, sneezing, congestion, runny nose or sore throat. SKIN: No rash or itching, lesions, wounds. CARDIOVASCULAR: (more content not included)... Normal [facility] L501.4020on 05-30-2024 TROPONIN-I HS 6 pg/mL Normal 3.0-54.0 [facility] Comment on above: Order Comment: 'TROP ' Serial specimen #1, #2 or #3: 3 Result Comment: Plea se Note: New Test Units and Gender Specific Reference Ranges. For more information see Policy Stat Procedure Trent High Sensitivity Troponin (TNIH) and attachments. Performed By: #### L 100.0100, L500.2500 #### [facility] [address] [place], [address] Magnesiumon 05-30-2024 Magnesium [Mass/Vol] 1.7 mg/dL Normal 1.6-2.6 [facility] Comment on above: Order Comment: Comme nts: may add to ED labs Performed By: #### L 100.0100, L500.2500 #### [facility] [address] [place], [address] RESPIRATORY PANEL MOLECULARo n 05-30-2024 RP PANEL Normal Reference Ran ge = Not Detected Resp path DNA+RNA Pnl Resp JAYLIN+probe Nucleic acid amplification test method ADENOVIRUS Not Detected INFLUENZA A Not Detected INFLUENZA A (SUBTYPE H1) Not Detected INFLUENZA A (SUBTYPE H3) Not Detected INFLUENZA B Not Detected HUMAN METAPHNEUMO Not Detected PARAINFLUENZA 1 Not Detected PARAINFLUENZA 2 Not Detected PARAINFLUENZA 3 Not Detected PARAINFLUENZA 4 Not Detected RHINOVIRUS Not Detected RSV A Not Detected RSV B Not Detected Normal [facility] Comment on above: Performed By: #### M 100.638 ####[facility] [id number] [place], [address] 12 Lead EKGon 05-29-2024 12 Lead EKG [facility] Cardiovascular Services [address] [place] [address] 12 Lead EKG 05/29/241958 MR#: [id number] Acct: [id number] Name: GENNY VARELA Rep #: [id number] : 1950 73 From: Giovanna Self MD Attending Dr: Dr. Ke Mccullough DO Status: D IS JANICE Ordering Dr: Rob Rodriges DO Date: 05/29/24 Location: [facility] Sex: F C Admitted: 05/30/24 Test Reason : CP Blood Pressure : */* mmHG Vent. Rate : 66 BPM Atrial Rate : 66 BPM P-R Int : 174 ms QRS Dur : 92 ms QT Int : 432 ms P-R-T Axes : 13 -9 35 degrees QTcB Int : 452 ms Normal sinus rhythm Minimal voltage criteria for LVH, may be normal variant ( R in aVL ) Borderline ECG Confirmed by ABE BROOKS, GERALD ([id number]), associate editor JAYLA FIELDS ([id number]) on 06/01/2024 6:12:34 AM Referred By: NIYA Confirmed By: GERALD SELF MD 06/01/24 0612 Date Giovanna Self MD CC: Dr. Ke Mccullough DO; Dr. Chadd Walton MD; Dr. Rob Rodriges DO Signed Normal [facility] Abdomen/Pelvis W IV Cont ONL Yon 05-29-2024 Abdomen/Pelvis W IV Cont ONLY [facility] Imaging Services [address] [place] [address] Abdomen/Pelvis W IV Cont ONLY MR#: [id number] Acct: [id number] Name: GENNY VARELA Rep #: [id number] : 1950 F 73 From: Jonathan Wells MD PCP: Dr. Chadd Walton MD Status: REG ER Study: Abdomen/Pelvis W IV Cont ONLY Date of Exam: Exam# [id number] Ordering Dr: Rob Rodriges DO [id number] INDICATION: epigastric abdominal pain, cholecystectomy, appendectomy. EXAMINATION: CT ABDOMEN AND PELVIS WITH CONTRAST - CT Abdomen And Pelvis W/ Contrast Injection TECHNIQUE: Helically acquired images were obtained of the abdomen and pelvis following IV contrast. A radiation dose optimization technique was used for this scan. IV Contrast dosage and agent: 75 cc Isovue-370 Oral contrast: None. COMPARISON: 01/20/2024 FINDINGS: LOWER CHEST: Bibasilar dependent changes. No cardiomegaly or pericardial effusion. LIVER: Increasing intrahepatic biliary ductal dilatation. GALLBLADDER AND BILIARY TREE: Cholecystectomy. Increasing dilatation extrahepatic common bile duct, 2.4 cm diameter compared to prior 2.0 cm diameter. No choledocholithiasis. PANCREAS: No focal cystic or solid mass. SPLEEN: Normal size without focal cystic or solid mass. ADRENAL GLANDS: No nodules. KIDNEYS AND URETERS: Bilateral cortical cysts. No hydronephrosis. PERITONEUM: No ascites or free air. BOWEL: No evidence of acute appendicitis. No stomach or bowel distension. No focal inflammatory change. LYMPH NODES: No enlarged mesenteric or retroperitoneal lymph nodes. VESSELS: Aorta is non-dilated. URINARY BLADDER: Unremarkable. REPRODUCTIVE ORGANS: No pelvic masses. ABDOMINAL WALL: Small fat-containing umbilical hernia. BONES: No acute or aggressive abnormality. CT/Abdomen/Pelvis W IV Cont ONLY IMPRESSION: Increasing postcholecystectomy biliary dilatation. Otherwise no acute findings in the abdomen or pelvis. Electronically Signed: Jonathan Wells MD at 23:32 EST Reading Location ID and State: [facility] / [place] Tel , Service support , CC: Dr. Chadd Walton MD; Dr. Rob Rodriges DO Tennis Player: Signed Normal [facility] Basic Metabolic Profile (BMP )on 05-29-2024 BUN/CRE 15.6 RATIO Normal 10-20 [facility] Comment on above: Order Comment: 1Y Performed By: #### L 100.0100, L500.2500 #### [facility] [address] [place], [address] CA,Total 8.7 mg/dL Normal 8.5-10.1 [facility] Comment on above: Order Comment: 1Y Performed By: #### L 100.0100, L500.2500 #### [facility] [address] [place], [address] Chloride [Moles/Vol] 109 mmol/L High 98-107 [facility] Comment on above: Order Comment: 1Y Performed By: #### L 100.0100, L500.2500 #### [facility] [address] [place], [address] CO2 [Moles/Vol] 24.0 mmol/L Normal 21.0-32.0 [facility] Comment on above: Order Comment: 1Y Performed By: #### L 100.0100, L500.2500 #### [facility] [address] [place], [address] Creatinine [Mass/Vol] 1.28 mg/dL High 0.55-1.02 [facility] Comment on above: Order Comment: 1Y Result Comment: The validity of the calculated GFR GFRAA in patients over 70 years has not been determined. Clinical correlation is essential. Performed By: #### L 100.0100, L500.2500 #### [facility] [address] [place], [address] ECRCL 30.59 ml/min Normal [facility] Comment on above: Order Comment: 1Y Performed By: #### L 100.0100, L500.2500 #### [facility] [address] [place], [address] EST GFR - AA 52 mL/min Low >60 [facility] Comment on above: Order Comment: 1Y Result Comment: Afri can Czech GFR Calc Performed By: #### L 100.0100, L500.2500 #### [facility] [address] [place], [address] GAP 6 Normal 5-15 [facility] Comment on above: Order Comment: 1Y Performed By: #### L 100.0100, L500.2500 #### [facility] [address] [place], [address] GFR/1.73 sq M.predicted among non-blacks MDRD (S/P/Bld) [Vol rate/Area] 43 mL/min/{1.73_m2} Low >60 [facility] Comment on above: Order Comment: 1Y Result Comment: Non- GFR Calc Performed By: #### L 100.0100, L500.2500 #### [facility] [address] [place], [address] Glucose [Mass/Vol] 144 mg/dL High 74-106 [facility] Comment on above: Order Comment: 1Y Result Comment: Fast ing Glucose result greater than or equal to 126 mg/dL suggests DIABETES MELLITUS per A.D.A. criteria. Performed By: #### L 100.0100, L500.2500 #### [facility] [address] [place], [address] Potassium [Moles/Vol] 4.3 mmol/L Normal 3.5-5.1 [facility] Comment on above: Order Comment: 1Y Performed By: #### L 100.0100, L500.2500 #### [facility] [address] [place], [address] Sodium [Moles/Vol] 139 mmol/L Normal 136-145 [facility] Comment on above: Order Comment: 1Y Performed By: #### L 100.0100, L500.2500 #### [facility] [address] [place], [address] Urea nitrogen [Mass/Vol] 20 mg/dL High 7-18 [facility] Comment on above: Order Comment: 1Y Performed By: #### L 100.0100, L500.2500 #### [facility] [address] [place], [address] CBC W/Diff, Automatedon 05-06-2024 Absolute Lymph 1.04 X10 3/uL Normal 0.83-4.51 [facility] Comment on above: Performed By: #### L 100.0100, L500.2500 #### [facility] [address] [place], [address] Absolute Neut 4.3 X10 3/uL Normal 2.0-7.7 [facility] Comment on above: Performed By: #### L 100.0100, L500.2500 #### [facility] [address] [place], [address] Basophils/100 WBC (Bld) 0.3 % Normal 0-1 [facility] Comment on above: Performed By: #### L 100.0100, L500.2500 #### [facility] [address] [place], [address] Eosinophils/100 WBC (Bld) 4.1 % Normal 0-5 [facility] Comment on above: Performed By: #### L 100.0100, L500.2500 #### [facility] [address] [place], [address] Erythrocyte distribution width (RBC) [Ratio] 13.3 % Normal 11.6-14.6 [facility] Comment on above: Performed By: #### L 100.0100, L500.2500 #### [facility] [address] [place], [address] Hematocrit (Bld) [Volume fraction] 35.6 % Low 37-47 [facility] Comment on above: Performed By: #### L 100.0100, L500.2500 #### [facility] [address] [place], [address] Hemoglobin (Bld) [Mass/Vol] 11.3 g/dL Low 12.0-15.0 [facility] Comment on above: Performed By: #### L 100.0100, L500.2500 #### [facility] [address] [place], [address] IG% 0.300 Normal 0.0-0.9 [facility] Comment on above: Result Comment: IG% - Immature Granulocytes (promyelocytes, myelocytes and metamyelocytes) > 1% indicates that a LEFT SHIFT is Present. Performed By: #### L 100.0100, L500.2500 #### [facility] [address] [place], [address] Lymphocytes/100 WBC (Bld) 17.0 % Low 19-41 [facility] Comment on above: Performed By: #### L 100.0100, L500.2500 #### [facility] [address] [place], [address] MCH (RBC) [Entitic mass] 32.0 pg Normal 27.0-32.0 [facility] Comment on above: Performed By: #### L 100.0100, L500.2500 #### [facility] [address] [place], [address] MCHC (RBC) [Mass/Vol] 31.7 g/dL Low 32-36 [facility] Comment on above: Performed By: #### L 100.0100, L500.2500 #### [facility] [address] [place], [address] MCV (RBC) [Entitic vol] 100.8 fL High 81-99 [facility] Comment on above: Performed By: #### L 100.0100, L500.2500 #### [facility] [address] [place], [address] Monocytes/100 WBC (Bld) 8.8 % Normal 0-10 [facility] Comment on above: Performed By: #### L 100.0100, L500.2500 #### [facility] [address] [place], [address] Neutrophils/100 WBC (Bld) 69.5 % Normal 47-70 [facility] Comment on above: Performed By: #### L 100.0100, L500.2500 #### [facility] [address] [place], [address] Nucleated RBC (Bld) [#/Vol] 0 10*3/uL Normal 0-5 [facility] Comment on above: Performed By: #### L 100.0100, L500.2500 #### [facility] [address] [place], [address] Platelet mean volume (Bld) [Entitic vol] 11.8 fL Normal 6.2-12.0 [facility] Comment on above: Performed By: #### L 100.0100, L500.2500 #### [facility] [address] [place], [address] Platelets (Bld) [#/Vol] 169 10*3/uL Normal 150-450 [facility] Comment on above: Performed By: #### L 100.0100, L500.2500 #### [facility] [address] [place], [address] RBC (Bld) [#/Vol] 3.53 10*6/uL Low 4.2-5.4 [facility] Comment on above: Performed By: #### L 100.0100, L500.2500 #### [facility] [address] [place], [address] RDW SD 49.6 fl High 35.1-43.9 [facility] Comment on above: Performed By: #### L 100.0100, L500.2500 #### [facility] [address] [place], [address] WBC (Bld) [#/Vol] 6.1 10*3/uL Normal 4.4-11.0 [facility] Comment on above: Performed By: #### L 100.0100, L500.2500 #### [facility] [address] [place], [address] Chest 1 View (Portable)on Chest 1 View (Portable) [facility] Imaging Services [address] [address] Chest 1 View (Portable) MR#: [id number] Acct: [id number] Name: GENNY VARELA Rep #: [id number] : 1950 F 73 From: Jonathan Wells MD PCP: Dr. Chadd Walton MD Status: [facility] ER Study: Chest 1 View (Portable) Date of Exam: 05/29/24 Exam# [id number] Ordering Dr: Rob Rodriges DO [id number] INDICATION: chest pain EXAMINATION/TECHNIQUE: X-RAY - portable upright AP chest x-ray COMPARISON: 01/20/2024 FINDINGS: LINES/DEVICES: None. LUNGS: No consolidation, edema or effusion. No pneumothorax. MEDIASTINUM AND CARDIOVASCULAR STRUCTURES: Cardiac silhouette stable within normal limits. Stable changes from prior cardiac surgery. BONES AND SOFT TISSUES: No acute changes. RAD/Chest 1 View (Portable) IMPRESSION: No radiographic evidence of acute cardiopulmonary disease. Electronically Signed: Jonathan Wells MD at 23:45 EST , CC: Dr. Chadd Walton MD; Dr. Rob Rodriges DO Tennis Player: Signed Normal [facility] Emergency Department Summary on 05-29-2024 Emergency Department Summary [facility] Medical Records Department [address] [place] [address] Emergency Department Summary 05/29/24 MR#: [id number] Acct: [id number] Name: GENNY VARELA Rep #: [id number] : 1950 73 From: Rob Rodriges DO PCP: Dr. Chadd Walton MD Status:REG ER Location: ED HPI History of Present Illness Chief Complaint: [facility] Medical History Preop cardiovascular exam Dyspnea Acute respiratory failure with hypoxia COVID-19 Anemia Chronic pain Facial droop Postoperative atrial fibrillation (11/10/20) Essential hypertension Atherosclerosis of [place] coronary artery of [place] heart without angina pectoris Pinched vertebral nerve Scoliosis GERD (gastroesophageal reflux disease) HLD (hyperlipidemia) History of back pain Home Medications ???Medication ???Instructions ???Recorded ???Last Taken ???Type rosuvastatin 20 mg tablet 20 mg PO QHS cholesterol 12/15/20 07/16/23 History aspirin 81 mg tablet,delayed 81 mg PO DAILY@0800 Check with 06/12/21 07/17/23 History release primary doctor labetalol 200 mg tablet 200 mg PO BID Check with primary 06/12/21 07/17/23 History doctor pantoprazole 40 mg tablet,delayed 40 mg PO DAILY Check with primary 06/12/21 07/17/23 History release (Protonix) doctor valsartan 320 mg tablet 320 mg PO DAILY Check with primary 06/12/21 07/17/23 History doctor chlorthalidone 25 mg tablet 25 mg PO DAILY 08/14/21 07/17/23 History potassium chloride 20 mEq 20 meq PO DAILY 11/20/21 07/17/23 History tablet,extended release(part/cryst) (Klor-Con M) tramadol 50 mg tablet 50 mg PO Q8H pain 07/17/23 07/17/23 History gabapentin 300 mg capsule 300 mg PO DAILY 01/20/24 Unknown History Allergy/AdvReac Type Severity Reaction Status Date / Time levofloxacin Allergy Severe leg pain Verified 01/20/24 14:17 amiodarone Allergy mental Verified 01/20/24 14:17 confusion Penicillins Allergy Unknown Verified 01/20/24 14:17 Sulfa (Sulfonamide Allergy Rash Verified 01/20/24 14:17 Antibiotics) ciprofloxacin AdvReac Rash Verified 01/20/24 14:17 lorazepam (From Ativan) AdvReac I went Verified 01/20/24 14:17 crazy Family History Mother Alcoholism Father Hypertension Brother Diabetes Sister Diabetes Hypertension Sister No problems noted. Son Hypertension Other Kidney disease Surgical History History of left heart catheterization (11/03/20) History of appendectomy H/O coronary artery bypass surgery (11/08/20) History of cholecystectomy Social History household members: spouse pets and animals: Yes (cats) Smoking Status: Never smoker alcohol intake: never substance use type: does not use caffeine: Yes Type: carbonated beverages EXAM Physical Exam Const Vital Signs: 05/29/24 19:51 05/29/24 20:12 05/29/24 20:37 Temperature 98.2 F Temperature Source Oral Pulse Rate 71 63 Respiratory Rate 19 H Respiratory Effort Respiratory Depth Respiratory Pattern Blood Pressure 122/52 H Blood Pressure Mean 75 Pulse Ox 96 94 96 Oxygen Delivery Method Room Air Room Air Oxygen Flow Rate (L/min) 05/29/24 20:41 05/29/24 20:42 05/29/24 20:59 Temperature Temperature Source Pulse Rate Respiratory Rate Respiratory Effort Normal Normal Respiratory Depth Normal Respiratory Pattern Normal Blood Pressure Blood Pressure Mean Pulse Ox 80 Oxygen Delivery Method Room Air Room Air Oxygen Flow Rate (L/min) 05/29/24 21:00 05/29/24 22:00 05/29/24 22:55 Temperature Temperature Source Pulse Rate 67 59 L 61 Respiratory Rate 15 18 18 Respiratory Effort Respiratory Depth Respiratory Pattern Blood Pressure 116/51 L 102/50 L 106/53 L Blood Pressure Mean 72 67 70 Pulse Ox 97 98 91 Oxygen Delivery Method Nasal Cannula Room Air Room Air Oxygen Flow Rate (L/min) 2 MDM MDM MDM Narrative Medical decision making narrative: HISTORY OF PRESENT ILLNESS: 73-year-old female history of CAD, hypertension, hyperlipidemia, A-fib, CABG x 5, presents with chest pain shortness of breath. The patient states symptoms began last day. She notes midsternal pressure-like pain does not radiate. She denies any lower extremity edema. Notes pain is worse with exertion. Also endorses shortness of breath. Notes a cough as well. Denies sick contacts. Denies fever. Denies diarrhea but does note a couple of episodes of nonbloody nonbilious vomitus. The patient denies recent surgery in the last 4 weeks or immobilization in the last 3 days, denies previous diagn (more content not included)... Normal [facility] L501.4020on 05-29-2024 TROPONIN-I HS 8 pg/mL Normal 3.0-54.0 [facility] Comment on above: Result Comment: Plea se Note: New Test Units and Gender Specific Reference Ranges. For more information see Policy Stat Procedure Trent High Sensitivity Troponin (TNIH) and attachments. Performed By: #### L 501.4020 #### [facility] [address] [place], [place], [address] L501.5425on 05-29-2024 TROPONIN-I HS 6 pg/mL Normal 3.0-54.0 [facility] Comment on above: Order Comment: 1Y Result Comment: Plea se Note: New Test Units and Gender Specific Reference Ranges. For more information see Policy Stat Procedure Trent High Sensitivity Troponin (TNIH) and attachments. Performed By: #### L 100.0100, L500.2500 #### [facility] [address] [place], [address] Lipaseon 05-29-2024 Lipase [Catalytic activity/Vol] 12 U/L Low 13-75 [facility] Comment on above: Order Comment: 1Y Result Comment: Jahaira merrill note: LIPASE revised reference range effective 22. New Lipase methodology. Expected to produce lower values than the previous assay method. NEW Reference Range: 13 - 75 U/L Performed By: #### L 100.0100, L500.2500 #### [facility] [address] [place], [address] Liver Profileon 05-29-2024 Albumin [Mass/Vol] 3.2 g/dL Normal 3.2-5.0 [facility] Comment on above: Order Comment: 1Y Performed By: #### L 100.0100, L500.2500 #### [facility] [address] [place], [address] ALK P 252 U/L High 45-117 [facility] Comment on above: Order Comment: 1Y Performed By: #### L 100.0100, L500.2500 #### [facility] [address] [place], [address] ALT [Catalytic activity/Vol] 34 U/L Normal 13-56 [facility] Comment on above: Order Comment: 1Y Performed By: #### L 100.0100, L500.2500 #### [facility] [address] [place], [address] AST [Catalytic activity/Vol] 13 U/L Low 15-37 [facility] Comment on above: Order Comment: 1Y Performed By: #### L 100.0100, L500.2500 #### [facility] [address] [place], [address] Bilirubin [Mass/Vol] 0.40 mg/dL Normal 0.20-1.00 [facility] Comment on above: Order Comment: 1Y Result Comment: For patients on eltrombopag therapy, use of Dimension Trent TBIL is not recommended. Performed By: #### L 100.0100, L500.2500 #### [facility] [address] [place], [address] Bilirubin.direct [Mass/Vol] 0.12 mg/dL Normal 0.00-0.30 [facility] Comment on above: Order Comment: 1Y Performed By: #### L 100.0100, L500.2500 #### [facility] [address] [place], [address] Globulin (S) [Mass/Vol] 3.0 g/dL Normal 2.2-4.2 [facility] Comment on above: Order Comment: 1Y Performed By: #### L 100.0100, L500.2500 #### [facility] [address] [place], [address] T PROT 6.2 g/dL Low 6.4-8.2 [facility] Comment on above: Order Comment: 1Y Performed By: #### L 100.0100, L500.2500 #### [facility] [address] [place], [address] M100.678on 05-29-2024 M100.678 Pending SARS-CoV-2 (COVID 19) Negative INFLUENZA A Negative INFLUENZA B Negative RSV PCR Negative Normal [facility] Comment on above: Performed By: #### M 100.678 ####[facility] [address] [place], [address] Basic Metabolic Profile (BMP )on 01-30-2024 BUN Normal 7-18 [facility] Comment on above: Result Comment: Canc elled via OM: Order cancelled - Patient discharged Performed By: #### L 100.0100, L500.2500 #### [facility] [address] [place], [address] BUN/CRE Normal 10-20 [facility] Comment on above: Result Comment: Canc elled via OM: Order cancelled - Patient discharged Performed By: #### L 100.0100, L500.2500 #### [facility] [address] [place], [address] CA,Total Normal 8.5-10.1 [facility] Comment on above: Result Comment: Canc elled via OM: Order cancelled - Patient discharged Performed By: #### L 100.0100, L500.2500 #### [facility] [address] [place], [address] CL Normal 98-107 [facility] Comment on above: Result Comment: Canc elled via OM: Order cancelled - Patient discharged Performed By: #### L 100.0100, L500.2500 #### [facility] [address] [place], [address] CO2 Normal 21.0-32.0 [facility] Comment on above: Result Comment: Canc elled via OM: Order cancelled - Patient discharged Performed By: #### L 100.0100, L500.2500 #### [facility] [address] [place], [address] CREAT,SERUM Normal 0.55-1.02 [facility] Comment on above: Result Comment: Canc elled via OM: Order cancelled - Patient discharged Performed By: #### L 100.0100, L500.2500 #### [facility] [address] [place], [address] EST GFR Normal >60 [facility] Comment on above: Result Comment: Canc elled via OM: Order cancelled - Patient discharged Performed By: #### L 100.0100, L500.2500 #### [facility] [address] [place], [address] EST GFR - AA Normal >60 [facility] Comment on above: Result Comment: Canc elled via OM: Order cancelled - Patient discharged Performed By: #### L 100.0100, L500.2500 #### [facility] [address] [place], [address] GAP Normal 5-15 [facility] Comment on above: Result Comment: Canc elled via OM: Order cancelled - Patient discharged Performed By: #### L 100.0100, L500.2500 #### [facility] [address] [place], [address] GLU Normal 74-106 [facility] Comment on above: Result Comment: Canc elled via OM: Order cancelled - Patient discharged Performed By: #### L 100.0100, L500.2500 #### [facility] [address] [place], [address] Potassium Normal 3.5-5.1 [facility] Comment on above: Result Comment: Canc elled via OM: Order cancelled - Patient discharged Performed By: #### L 100.0100, L500.2500 #### [facility] [address] [place], [address] Basic Metabolic Profile (BMP) Normal 136-145 [facility] Comment on above: Result Comment: Canc elled via OM: Order cancelled - Patient discharged Performed By: #### L 100.0100, L500.2500 #### [facility] [address] [place], [address] CBC W/Diff, Automatedon 09-2 Absolute Neut Normal 2.0-7.7 [facility] Comment on above: Result Comment: Canc elled via OM: Order cancelled - Patient discharged Performed By: #### L 100.0100, L500.2500 ####[facility] [address] [place], [address] HCT Normal 37-47 [facility] Comment on above: Result Comment: Canc elled via OM: Order cancelled - Patient discharged Performed By: #### L 100.0100, L500.2500 ####[facility] [address] [place], [address] HGB Normal 12.0-15.0 [facility] Comment on above: Result Comment: Canc elled via OM: Order cancelled - Patient discharged Performed By: #### L 100.0100, L500.2500 ####[facility] [address] [place], [address] MCH Normal 27.0-32.0 [facility] Comment on above: Result Comment: Canc elled via OM: Order cancelled - Patient discharged Performed By: #### L 100.0100, L500.2500 ####[facility] [address] [place], [address] MCHC Normal 32-36 [facility] Comment on above: Result Comment: Canc elled via OM: Order cancelled - Patient discharged Performed By: #### L 100.0100, L500.2500 ####[facility] [address] [place], [address] MCV Normal 81-99 [facility] Comment on above: Result Comment: Canc elled via OM: Order cancelled - Patient discharged Performed By: #### L 100.0100, L500.2500 ####[facility] [address] [place], [address] NEUT% Normal 47-70 [facility] Comment on above: Result Comment: Canc elled via OM: Order cancelled - Patient discharged Performed By: #### L 100.0100, L500.2500 ####[facility] [address] [place], [address] PLT Normal 150-450 [facility] Comment on above: Result Comment: Canc elled via OM: Order cancelled - Patient discharged Performed By: #### L 100.0100, L500.2500 ####[facility] [address] [place], [address] RBC Normal 4.2-5.4 [facility] Comment on above: Result Comment: Canc elled via OM: Order cancelled - Patient discharged Performed By: #### L 100.0100, L500.2500 ####[facility] [address] [place], [address] RDW CV Normal 11.6-14.6 [facility] Comment on above: Result Comment: Canc elled via OM: Order cancelled - Patient discharged Performed By: #### L 100.0100, L500.2500 ####[facility] [address] [place], [address] RDW SD Normal 35.1-43.9 [facility] Comment on above: Result Comment: Canc elled via OM: Order cancelled - Patient discharged Performed By: #### L 100.0100, L500.2500 ####[facility] [address] [place], [address] WBC Normal 4.4-11.0 [facility] Comment on above: Result Comment: Canc elled via OM: Order cancelled - Patient discharged Performed By: #### L 100.0100, L500.2500 ####[facility] [address] [place], [address] Basic Metabolic Profile (BMP )on 01-29-2024 BUN Normal 7-18 [facility] Comment on above: Result Comment: Canc elled via OM: Order cancelled - Patient discharged Performed By: #### L 100.0100, L500.2500 #### [facility] [address] [place], [address] BUN/CRE Normal 10-20 [facility] Comment on above: Result Comment: Canc elled via OM: Order cancelled - Patient discharged Performed By: #### L 100.0100, L500.2500 #### [facility] [address] [place], [address] CA,Total Normal 8.5-10.1 [facility] Comment on above: Result Comment: Canc elled via OM: Order cancelled - Patient discharged Performed By: #### L 100.0100, L500.2500 #### [facility] [address] [place], [address] CL Normal 98-107 [facility] Comment on above: Result Comment: Canc elled via OM: Order cancelled - Patient discharged Performed By: #### L 100.0100, L500.2500 #### [facility] [address] [place], [address] CO2 Normal 21.0-32.0 [facility] Comment on above: Result Comment: Canc elled via OM: Order cancelled - Patient discharged Performed By: #### L 100.0100, L500.2500 #### [facility] [address] [place], [address] CREAT,SERUM Normal 0.55-1.02 [facility] Comment on above: Result Comment: Canc elled via OM: Order cancelled - Patient discharged Performed By: #### L 100.0100, L500.2500 #### [facility] [address] [place], [address] EST GFR Normal >60 [facility] Comment on above: Result Comment: Canc elled via OM: Order cancelled - Patient discharged Performed By: #### L 100.0100, L500.2500 #### [facility] [address] [place], [address] EST GFR - AA Normal >60 [facility] Comment on above: Result Comment: Canc elled via OM: Order cancelled - Patient discharged Performed By: #### L 100.0100, L500.2500 #### [facility] [address] [place], [address] GAP Normal 5-15 [facility] Comment on above: Result Comment: Canc elled via OM: Order cancelled - Patient discharged Performed By: #### L 100.0100, L500.2500 #### [facility] [address], [address] GLU Normal 74-106 [facility] Comment on above: Result Comment: Canc elled via OM: Order cancelled - Patient discharged Performed By: #### L 100.0100, L500.2500 #### [facility] [address] [place], [address] Potassium Normal 3.5-5.1 [facility] Comment on above: Result Comment: Canc elled via OM: Order cancelled - Patient discharged Performed By: #### L 100.0100, L500.2500 #### [facility] [address] [place], [address] Basic Metabolic Profile (BMP) Normal 136-145 [facility] Comment on above: Result Comment: Canc elled via OM: Order cancelled - Patient discharged Performed By: #### L 100.0100, L500.2500 #### [facility] [address] [place], [address] CBC W/Diff, Automatedon 09-2 -2023 Absolute Neut Normal 2.0-7.7 [facility] Comment on above: Result Comment: Canc elled via OM: Order cancelled - Patient discharged Performed By: #### L 100.0100, L500.2500 #### [facility] [address] [place], [address] HCT Normal 37-47 [facility] Comment on above: Result Comment: Canc elled via OM: Order cancelled - Patient discharged Performed By: #### L 100.0100, L500.2500 #### [facility] [address] [place], [address] HGB Normal 12.0-15.0 [facility] Comment on above: Result Comment: Canc elled via OM: Order cancelled - Patient discharged Performed By: #### L 100.0100, L500.2500 #### [facility] [address] [place], [address] MCH Normal 27.0-32.0 [facility] Comment on above: Result Comment: Canc elled via OM: Order cancelled - Patient discharged Performed By: #### L 100.0100, L500.2500 #### [facility] [address] [place], [address] MCHC Normal 32-36 [facility] Comment on above: Result Comment: Canc elled via OM: Order cancelled - Patient discharged Performed By: #### L 100.0100, L500.2500 #### [facility] [address] [place], [address] MCV Normal 81-99 [facility] Comment on above: Result Comment: Canc elled via OM: Order cancelled - Patient discharged Performed By: #### L 100.0100, L500.2500 #### [facility] [address] [place], [address] NEUT% Normal 47-70 [facility] Comment on above: Result Comment: Canc elled via OM: Order cancelled - Patient discharged Performed By: #### L 100.0100, L500.2500 #### [facility] [address] [place], [address] PLT Normal 150-450 [facility] Comment on above: Result Comment: Canc elled via OM: Order cancelled - Patient discharged Performed By: #### L 100.0100, L500.2500 #### [facility] [address] [place], [address] RBC Normal 4.2-5.4 [facility] Comment on above: Result Comment: Canc elled via OM: Order cancelled - Patient discharged Performed By: #### L 100.0100, L500.2500 #### [facility] [address] [place], [address] RDW CV Normal 11.6-14.6 [facility] Comment on above: Result Comment: Canc elled via OM: Order cancelled - Patient discharged Performed By: #### L 100.0100, L500.2500 #### [facility] [address] [place], [address] RDW SD Normal 35.1-43.9 [facility] Comment on above: Result Comment: Canc elled via OM: Order cancelled - Patient discharged Performed By: #### L 100.0100, L500.2500 #### [facility] [address] [place], [address] WBC Normal 4.4-11.0 [facility] Comment on above: Result Comment: Canc elled via OM: Order cancelled - Patient discharged Performed By: #### L 100.0100, L500.2500 #### [facility] [address] [place], [address] Basic Metabolic Profile (BMP )on 01-28-2024 BUN Normal 7-18 [facility] Comment on above: Result Comment: Canc elled via OM: Order cancelled - Patient discharged Performed By: #### L 100.0100, L500.2500 #### [facility] [address] [place], [address] BUN/CRE Normal 10-20 [facility] Comment on above: Result Comment: Canc elled via OM: Order cancelled - Patient discharged Performed By: #### L 100.0100, L500.2500 #### [facility] [address] [place], [address] CA,Total Normal 8.5-10.1 [facility] Comment on above: Result Comment: Canc elled via OM: Order cancelled - Patient discharged Performed By: #### L 100.0100, L500.2500 #### [facility] [address] [place], [address] CL Normal 98-107 [facility] Comment on above: Result Comment: Canc elled via OM: Order cancelled - Patient discharged Performed By: #### L 100.0100, L500.2500 #### [facility] [address] [place], [address] CO2 Normal 21.0-32.0 [facility] Comment on above: Result Comment: Canc elled via OM: Order cancelled - Patient discharged Performed By: #### L 100.0100, L500.2500 #### [facility] [address] [place], [address] CREAT,SERUM Normal 0.55-1.02 [facility] Comment on above: Result Comment: Canc elled via OM: Order cancelled - Patient discharged Performed By: #### L 100.0100, L500.2500 #### [facility] [address] [place], [address] EST GFR Normal >60 [facility] Comment on above: Result Comment: Canc elled via OM: Order cancelled - Patient discharged Performed By: #### L 100.0100, L500.2500 #### [facility] [address] [place], [address] EST GFR - AA Normal >60 [facility] Comment on above: Result Comment: Canc elled via OM: Order cancelled - Patient discharged Performed By: #### L 100.0100, L500.2500 #### [facility] [address] [place], [address] GAP Normal 5-15 [facility] Comment on above: Result Comment: Canc elled via OM: Order cancelled - Patient discharged Performed By: #### L 100.0100, L500.2500 #### [facility] [address] [place], [address] GLU Normal 74-106 [facility] Comment on above: Result Comment: Canc elled via OM: Order cancelled - Patient discharged Performed By: #### L 100.0100, L500.2500 #### [facility] [address], [address] Potassium Normal 3.5-5.1 [facility] Comment on above: Result Comment: Canc elled via OM: Order cancelled - Patient discharged Performed By: #### L 100.0100, L500.2500 #### [facility] [address], [address] Basic Metabolic Profile (BMP) Normal 136-145 [facility] Comment on above: Result Comment: Canc elled via OM: Order cancelled - Patient discharged Performed By: #### L 100.0100, L500.2500 #### [facility] [address] [place], [address] CBC W/Diff, Automatedon 09-2 Absolute Neut Normal 2.0-7.7 [facility] Comment on above: Result Comment: Canc elled via OM: Order cancelled - Patient discharged Performed By: #### L 100.0100, L500.2500 #### [facility] [address] [place], [address] HCT Normal 37-47 [facility] Comment on above: Result Comment: Canc elled via OM: Order cancelled - Patient discharged Performed By: #### L 100.0100, L500.2500 #### [facility] [address], [address] HGB Normal 12.0-15.0 [facility] Comment on above: Result Comment: Canc elled via OM: Order cancelled - Patient discharged Performed By: #### L 100.0100, L500.2500 #### [facility] [address] [place], [address] MCH Normal 27.0-32.0 [facility] Comment on above: Result Comment: Canc elled via OM: Order cancelled - Patient discharged Performed By: #### L 100.0100, L500.2500 #### [facility] [address] [place], [address] MCHC Normal 32-36 [facility] Comment on above: Result Comment: Canc elled via OM: Order cancelled - Patient discharged Performed By: #### L 100.0100, L500.2500 #### [facility] [address] [place], [address] MCV Normal 81-99 [facility] Comment on above: Result Comment: Canc elled via OM: Order cancelled - Patient discharged Performed By: #### L 100.0100, L500.2500 #### [facility] [address] [place], [address] NEUT% Normal 47-70 [facility] Comment on above: Result Comment: Canc elled via OM: Order cancelled - Patient discharged Performed By: #### L 100.0100, L500.2500 #### [facility] [address] [place], [address] PLT Normal 150-450 [facility] Comment on above: Result Comment: Canc elled via OM: Order cancelled - Patient discharged Performed By: #### L 100.0100, L500.2500 #### [facility] [address] [place], [address] RBC Normal 4.2-5.4 [facility] Comment on above: Result Comment: Canc elled via OM: Order cancelled - Patient discharged Performed By: #### L 100.0100, L500.2500 #### [facility] [address] [place], [address] RDW CV Normal 11.6-14.6 [facility] Comment on above: Result Comment: Canc elled via OM: Order cancelled - Patient discharged Performed By: #### L 100.0100, L500.2500 #### [facility] [address] [place], [address] RDW SD Normal 35.1-43.9 [facility] Comment on above: Result Comment: Canc elled via OM: Order cancelled - Patient discharged Performed By: #### L 100.0100, L500.2500 #### [facility] [address], [address] WBC Normal 4.4-11.0 [facility] Comment on above: Result Comment: Canc elled via OM: Order cancelled - Patient discharged Performed By: #### L 100.0100, L500.2500 #### [facility] [address], [address] Basic Metabolic Profile (BMP )on 01-27-2024 BUN Normal 7-18 [facility] Comment on above: Result Comment: Canc elled via OM: Order cancelled - Patient discharged Performed By: #### L 100.0100, L500.2500 #### [facility] [address] [place], [address] BUN/CRE Normal 10-20 [facility] Comment on above: Result Comment: Canc elled via OM: Order cancelled - Patient discharged Performed By: #### L 100.0100, L500.2500 #### [facility] [address] [place], [address] CA,Total Normal 8.5-10.1 [facility] Comment on above: Result Comment: Canc elled via OM: Order cancelled - Patient discharged Performed By: #### L 100.0100, L500.2500 #### [facility] [address], [address] CL Normal 98-107 [facility] Comment on above: Result Comment: Canc elled via OM: Order cancelled - Patient discharged Performed By: #### L 100.0100, L500.2500 #### [facility] [address] [place], [address] CO2 Normal 21.0-32.0 [facility] Comment on above: Result Comment: Canc elled via OM: Order cancelled - Patient discharged Performed By: #### L 100.0100, L500.2500 #### [facility] [address] [place], [address] CREAT,SERUM Normal 0.55-1.02 [facility] Comment on above: Result Comment: Canc elled via OM: Order cancelled - Patient discharged Performed By: #### L 100.0100, L500.2500 #### [facility] [address] [place], [address] EST GFR Normal >60 [facility] Comment on above: Result Comment: Canc elled via OM: Order cancelled - Patient discharged Performed By: #### L 100.0100, L500.2500 #### [facility] [address] [place], [address] EST GFR - AA Normal >60 [facility] Comment on above: Result Comment: Canc elled via OM: Order cancelled - Patient discharged Performed By: #### L 100.0100, L500.2500 #### [facility] [address] [place], [address] GAP Normal 5-15 [facility] Comment on above: Result Comment: Canc elled via OM: Order cancelled - Patient discharged Performed By: #### L 100.0100, L500.2500 #### [facility] [address] [place], [address] GLU Normal 74-106 [facility] Comment on above: Result Comment: Canc elled via OM: Order cancelled - Patient discharged Performed By: #### L 100.0100, L500.2500 #### [facility] [address] [place], [address] Potassium Normal 3.5-5.1 [facility] Comment on above: Result Comment: Canc elled via OM: Order cancelled - Patient discharged Performed By: #### L 100.0100, L500.2500 #### [facility] [address] [place], [address] Basic Metabolic Profile (BMP) Normal 136-145 [facility] Comment on above: Result Comment: Canc elled via OM: Order cancelled - Patient discharged Performed By: #### L 100.0100, L500.2500 #### [facility] [address] [place], [address] CBC W/Diff, Automatedon - Absolute Neut Normal 2.0-7.7 [facility] Comment on above: Result Comment: Canc elled via OM: Order cancelled - Patient discharged Performed By: #### L 100.0100, L500.2500 #### [facility] [address] [place], [address] HCT Normal 37-47 [facility] Comment on above: Result Comment: Canc elled via OM: Order cancelled - Patient discharged Performed By: #### L 100.0100, L500.2500 #### [facility] [address] [place], [address] HGB Normal 12.0-15.0 [facility] Comment on above: Result Comment: Canc elled via OM: Order cancelled - Patient discharged Performed By: #### L 100.0100, L500.2500 #### [facility] [address] [place], [address] MCH Normal 27.0-32.0 [facility] Comment on above: Result Comment: Canc elled via OM: Order cancelled - Patient discharged Performed By: #### L 100.0100, L500.2500 #### [facility] [address] [place], [address] MCHC Normal 32-36 [facility] Comment on above: Result Comment: Canc elled via OM: Order cancelled - Patient discharged Performed By: #### L 100.0100, L500.2500 #### [facility] [address] [place], [address] MCV Normal 81-99 [facility] Comment on above: Result Comment: Canc elled via OM: Order cancelled - Patient discharged Performed By: #### L 100.0100, L500.2500 #### [facility] [address] [place], [address] NEUT% Normal 47-70 [facility] Comment on above: Result Comment: Canc elled via OM: Order cancelled - Patient discharged Performed By: #### L 100.0100, L500.2500 #### [facility] [address] [place], [address] PLT Normal 150-450 [facility] Comment on above: Result Comment: Canc elled via OM: Order cancelled - Patient discharged Performed By: #### L 100.0100, L500.2500 #### [facility] [address] [place], [address] RBC Normal 4.2-5.4 [facility] Comment on above: Result Comment: Canc elled via OM: Order cancelled - Patient discharged Performed By: #### L 100.0100, L500.2500 #### [facility] [address] [place], [address] RDW CV Normal 11.6-14.6 [facility] Comment on above: Result Comment: Canc elled via OM: Order cancelled - Patient discharged Performed By: #### L 100.0100, L500.2500 #### [facility] [address] [place], [address] RDW SD Normal 35.1-43.9 [facility] Comment on above: Result Comment: Canc elled via OM: Order cancelled - Patient discharged Performed By: #### L 100.0100, L500.2500 #### [facility] [address] [place], [address] WBC Normal 4.4-11.0 [facility] Comment on above: Result Comment: Canc elled via OM: Order cancelled - Patient discharged Performed By: #### L 100.0100, L500.2500 #### [facility] [address] [place], [address] Basic Metabolic Profile (BMP )on 01-26-2024 BUN Normal 7-18 [facility] Comment on above: Result Comment: Canc elled via OM: Order cancelled - Patient discharged Performed By: #### L 100.0100, L500.2500 #### [facility] [address] [place], [address] BUN/CRE Normal 10-20 [facility] Comment on above: Result Comment: Canc elled via OM: Order cancelled - Patient discharged Performed By: #### L 100.0100, L500.2500 #### [facility] [address] [place], [address] CA,Total Normal 8.5-10.1 [facility] Comment on above: Result Comment: Canc elled via OM: Order cancelled - Patient discharged Performed By: #### L 100.0100, L500.2500 #### [facility] [address] [place], [address] CL Normal 98-107 [facility] Comment on above: Result Comment: Canc elled via OM: Order cancelled - Patient discharged Performed By: #### L 100.0100, L500.2500 #### [facility] [address] [place], [address] CO2 Normal 21.0-32.0 [facility] Comment on above: Result Comment: Canc elled via OM: Order cancelled - Patient discharged Performed By: #### L 100.0100, L500.2500 #### [facility] [address] [place], [address] CREAT,SERUM Normal 0.55-1.02 [facility] Comment on above: Result Comment: Canc elled via OM: Order cancelled - Patient discharged Performed By: #### L 100.0100, L500.2500 #### [facility] [address] [place], [address] EST GFR Normal >60 [facility] Comment on above: Result Comment: Canc elled via OM: Order cancelled - Patient discharged Performed By: #### L 100.0100, L500.2500 #### [facility] [address] [place], [address] EST GFR - AA Normal >60 [facility] Comment on above: Result Comment: Canc elled via OM: Order cancelled - Patient discharged Performed By: #### L 100.0100, L500.2500 #### [facility] [address] [place], [address] GAP Normal 5-15 [facility] Comment on above: Result Comment: Canc elled via OM: Order cancelled - Patient discharged Performed By: #### L 100.0100, L500.2500 #### [facility] [address] [place], [address] GLU Normal 74-106 [facility] Comment on above: Result Comment: Canc elled via OM: Order cancelled - Patient discharged Performed By: #### L 100.0100, L500.2500 #### [facility] [address] [place], [address] Potassium Normal 3.5-5.1 [facility] Comment on above: Result Comment: Canc elled via OM: Order cancelled - Patient discharged Performed By: #### L 100.0100, L500.2500 #### [facility] [address] [place], [address] Basic Metabolic Profile (BMP) Normal 136-145 [facility] Comment on above: Result Comment: Canc elled via OM: Order cancelled - Patient discharged Performed By: #### L 100.0100, L500.2500 #### [facility] [address] [place], [address] CBC W/Diff, Automatedon 09-2 Absolute Neut Normal 2.0-7.7 [facility] Comment on above: Result Comment: Canc elled via OM: Order cancelled - Patient discharged Performed By: #### L 100.0100, L500.2500 #### [facility] [address] [place], [address] HCT Normal 37-47 [facility] Comment on above: Result Comment: Canc elled via OM: Order cancelled - Patient discharged Performed By: #### L 100.0100, L500.2500 #### [facility] [address] [place], [address] HGB Normal 12.0-15.0 [facility] [facility] Comment on above: Result Comment: Canc elled via OM: Order cancelled - Patient discharged Performed By: #### L 100.0100, L500.2500 #### [facility] [address] [place], [address] MCH Normal 27.0-32.0 [facility] Comment on above: Result Comment: Canc elled via OM: Order cancelled - Patient discharged Performed By: #### L 100.0100, L500.2500 #### [facility] [address] [place], [address] MCHC Normal 32-36 [facility] Comment on above: Result Comment: Canc elled via OM: Order cancelled - Patient discharged Performed By: #### L 100.0100, L500.2500 #### [facility] [address] [place], [address] MCV Normal 81-99 [facility] Comment on above: Result Comment: Canc elled via OM: Order cancelled - Patient discharged Performed By: #### L 100.0100, L500.2500 #### [facility] [address] [place], [address] NEUT% Normal 47-70 [facility] Comment on above: Result Comment: Canc elled via OM: Order cancelled - Patient discharged Performed By: #### L 100.0100, L500.2500 #### [facility] [address] [place], [address] PLT Normal 150-450 [facility] Comment on above: Result Comment: Canc elled via OM: Order cancelled - Patient discharged Performed By: #### L 100.0100, L500.2500 #### [facility] [address] [place], [address] RBC Normal 4.2-5.4 [facility] Comment on above: Result Comment: Canc elled via OM: Order cancelled - Patient discharged Performed By: #### L 100.0100, L500.2500 #### [facility] [address] [place], [address] RDW CV Normal 11.6-14.6 [facility] Comment on above: Result Comment: Canc elled via OM: Order cancelled - Patient discharged Performed By: #### L 100.0100, L500.2500 #### [facility] [address] [place], [address] RDW SD Normal 35.1-43.9 [facility] Comment on above: Result Comment: Canc elled via OM: Order cancelled - Patient discharged Performed By: #### L 100.0100, L500.2500 #### [facility] [address] [place], [address] WBC Normal 4.4-11.0 [facility] Comment on above: Result Comment: Canc elled via OM: Order cancelled - Patient discharged Performed By: #### L 100.0100, L500.2500 #### [facility] [address] [place], [address] Basic Metabolic Profile (BMP )on 01-25-2024 BUN Normal 7-18 [facility] Comment on above: Result Comment: Canc elled via OM: Order cancelled - Patient discharged Performed By: #### L 100.0100, L500.2500 #### [facility] [address] [place], [address] BUN/CRE Normal 10-20 [facility] Comment on above: Result Comment: Canc elled via OM: Order cancelled - Patient discharged Performed By: #### L 100.0100, L500.2500 #### [facility] [address] [place], [address] CA,Total Normal 8.5-10.1 [facility] Comment on above: Result Comment: Canc elled via OM: Order cancelled - Patient discharged Performed By: #### L 100.0100, L500.2500 #### [facility] [address] [place], [address] CL Normal 98-107 [facility] Comment on above: Result Comment: Canc elled via OM: Order cancelled - Patient discharged Performed By: #### L 100.0100, L500.2500 #### [facility] [address] [place], [address] CO2 Normal 21.0-32.0 [facility] Comment on above: Result Comment: Canc elled via OM: Order cancelled - Patient discharged Performed By: #### L 100.0100, L500.2500 #### [facility] [address] [place], [address] CREAT,SERUM Normal 0.55-1.02 [facility] Comment on above: Result Comment: Canc elled via OM: Order cancelled - Patient discharged Performed By: #### L 100.0100, L500.2500 #### [facility] [address] [place], [address] EST GFR Normal >60 [facility] Comment on above: Result Comment: Canc elled via OM: Order cancelled - Patient discharged Performed By: #### L 100.0100, L500.2500 #### [facility] [address] [place], [address] EST GFR - AA Normal >60 [facility] Comment on above: Result Comment: Canc elled via OM: Order cancelled - Patient discharged Performed By: #### L 100.0100, L500.2500 #### [facility] [address] [place], [address] GAP Normal 5-15 [facility] Comment on above: Result Comment: Canc elled via OM: Order cancelled - Patient discharged Performed By: #### L 100.0100, L500.2500 #### [facility] [address] [place], [address] GLU Normal 74-106 [facility] Comment on above: Result Comment: Canc elled via OM: Order cancelled - Patient discharged Performed By: #### L 100.0100, L500.2500 #### [facility] [address] [place], [address] Potassium Normal 3.5-5.1 [facility] Comment on above: Result Comment: Canc elled via OM: Order cancelled - Patient discharged Performed By: #### L 100.0100, L500.2500 #### [facility] [address] [place], [address] Basic Metabolic Profile (BMP) Normal 136-145 [facility] Comment on above: Result Comment: Canc elled via OM: Order cancelled - Patient discharged Performed By: #### L 100.0100, L500.2500 #### [facility] [address] [place], [address] CBC W/Diff, Automatedon 09- Absolute Neut Normal 2.0-7.7 [facility] Comment on above: Result Comment: Canc elled via OM: Order cancelled - Patient discharged Performed By: #### L 100.0100, L500.2500 #### [facility] [address] [place], [address] HCT Normal 37-47 [facility] Comment on above: Result Comment: Canc elled via OM: Order cancelled - Patient discharged Performed By: #### L 100.0100, L500.2500 #### [facility] [address] [place], [address] HGB Normal 12.0-15.0 [facility] Comment on above: Result Comment: Canc elled via OM: Order cancelled - Patient discharged Performed By: #### L 100.0100, L500.2500 #### [facility] [address] [place], [address] MCH Normal 27.0-32.0 [facility] Comment on above: Result Comment: Canc elled via OM: Order cancelled - Patient discharged Performed By: #### L 100.0100, L500.2500 #### [facility] [address] [place], [address] MCHC Normal 32-36 [facility] Comment on above: Result Comment: Canc elled via OM: Order cancelled - Patient discharged Performed By: #### L 100.0100, L500.2500 #### [facility] [address] [place], [address] MCV Normal 81-99 [facility] Comment on above: Result Comment: Canc elled via OM: Order cancelled - Patient discharged Performed By: #### L 100.0100, L500.2500 #### [facility] [address] [place], [address] NEUT% Normal 47-70 [facility] Comment on above: Result Comment: Canc elled via OM: Order cancelled - Patient discharged Performed By: #### L 100.0100, L500.2500 #### [facility] [address] [place], [address] PLT Normal 150-450 [facility] Comment on above: Result Comment: Canc elled via OM: Order cancelled - Patient discharged Performed By: #### L 100.0100, L500.2500 #### [facility] [address] [place], [address] RBC Normal 4.2-5.4 [facility] Comment on above: Result Comment: Canc elled via OM: Order cancelled - Patient discharged Performed By: #### L 100.0100, L500.2500 #### [facility] [address] [place], [address] RDW CV Normal 11.6-14.6 [facility] Comment on above: Result Comment: Canc elled via OM: Order cancelled - Patient discharged Performed By: #### L 100.0100, L500.2500 #### [facility] [address] [place], [address] RDW SD Normal 35.1-43.9 [facility] Comment on above: Result Comment: Canc elled via OM: Order cancelled - Patient discharged Performed By: #### L 100.0100, L500.2500 #### [facility] [address] [place], [address] WBC Normal 4.4-11.0 [facility] Comment on above: Result Comment: Canc elled via OM: Order cancelled - Patient discharged Performed By: #### L 100.0100, L500.2500 #### [facility] [address] [place], [address] Culture, Blood (WB)on 2023 CUB Blood cultures x2, f rom two different sites No growth in 5 days. Normal [facility] Comment on above: Performed By: #### M 200.1000 ####[facility] [address] [place], [address] Basic Metabolic Profile (BMP )on 01-24-2024 BUN/CRE 8.9 RATIO Low 10-20 [facility] Comment on above: Performed By: #### L 100.0100, L500.2500 #### [facility] [address] [place], [address] CA,Total 8.8 mg/dL Normal 8.5-10.1 [facility] Comment on above: Performed By: #### L 100.0100, L500.2500 #### [facility] [address] [place], [address] Chloride [Moles/Vol] 105 mmol/L Normal 98-107 [facility] Comment on above: Performed By: #### L 100.0100, L500.2500 #### [facility] [address] [place], [address] CO2 [Moles/Vol] 27.0 mmol/L Normal 21.0-32.0 [facility] Comment on above: Performed By: #### L 100.0100, L500.2500 #### [facility] [address] [place], [address] Creatinine [Mass/Vol] 0.56 mg/dL Normal 0.55-1.02 [facility] Comment on above: Result Comment: The validity of the calculated GFR GFRAA in patients over 70 years has not been determined. Clinical correlation is essential. Performed By: #### L 100.0100, L500.2500 #### [facility] [address] [place], [address] ECRCL 50.59 ml/min Normal [facility] Comment on above: Performed By: #### L 100.0100, L500.2500 #### [facility] [address] [place], [address] EST GFR - AA 135 mL/min Normal >60 [facility] Comment on above: Result Comment: Afri can Czech GFR Calc Performed By: #### L 100.0100, L500.2500 #### [facility] [address] [place], [address] GAP 6 Normal 5-15 [facility] Comment on above: Performed By: #### L 100.0100, L500.2500 #### [facility] [address] [place], [address] GFR/1.73 sq M.predicted among non-blacks MDRD (S/P/Bld) [Vol rate/Area] 112 mL/min/{1.73_m2} Normal >60 [facility] Comment on above: Result Comment: Non- GFR Calc Performed By: #### L 100.0100, L500.2500 #### [facility] [address] [place], [address] Glucose [Mass/Vol] 153 mg/dL High 74-106 [facility] Comment on above: Result Comment: Fast ing Glucose result greater than or equal to 126 mg/dL suggests DIABETES MELLITUS per A.D.A. criteria. Performed By: #### L 100.0100, L500.2500 #### [facility] [address] [place], [address] Potassium [Moles/Vol] 3.3 mmol/L Low 3.5-5.1 [facility] Comment on above: Performed By: #### L 100.0100, L500.2500 #### [facility] [address] [place], [address] Sodium [Moles/Vol] 138 mmol/L Normal 136-145 [facility] Comment on above: Performed By: #### L 100.0100, L500.2500 #### [facility] [address] [place], [address] Urea nitrogen [Mass/Vol] 5 mg/dL Low 7-18 [facility] Comment on above: Performed By: #### L 100.0100, L500.2500 #### [facility] [address] [place], [address] CBC W/Diff, Automatedon 09-2 -2023 Absolute Lymph 0.75 X10 3/uL Low 0.83-4.51 [facility] Comment on above: Performed By: #### L 100.0100, L500.2500 #### [facility] [address] [place], [address] Absolute Neut 4.0 X10 3/uL Normal 2.0-7.7 [facility] Comment on above: Performed By: #### L 100.0100, L500.2500 #### [facility] [address] [place], [address] Basophils/100 WBC (Bld) 0.2 % Normal 0-1 [facility] Comment on above: Performed By: #### L 100.0100, L500.2500 #### [facility] [address] [place], [address] Eosinophils/100 WBC (Bld) 6.1 % High 0-5 [facility] Comment on above: Performed By: #### L 100.0100, L500.2500 #### [facility] [address] [place], [address] Erythrocyte distribution width (RBC) [Ratio] 12.8 % Normal 11.6-14.6 [facility] Comment on above: Performed By: #### L 100.0100, L500.2500 #### [facility] [address] [place], [address] Hematocrit (Bld) [Volume fraction] 34.0 % Low 37-47 [facility] Comment on above: Performed By: #### L 100.0100, L500.2500 #### [facility] [address] [place], [address] Hemoglobin (Bld) [Mass/Vol] 11.0 g/dL Low 12.0-15.0 [facility] Comment on above: Performed By: #### L 100.0100, L500.2500 #### [facility] [address] [place], [address] IG% 0.300 Normal 0.0-0.9 [facility] Comment on above: Result Comment: IG% - Immature Granulocytes (promyelocytes, myelocytes and metamyelocytes) > 1% indicates that a LEFT SHIFT is Present. Performed By: #### L 100.0100, L500.2500 #### [facility] [address] [place], [address] Lymphocytes/100 WBC (Bld) 12.8 % Low 19-41 [facility] Comment on above: Performed By: #### L 100.0100, L500.2500 #### [facility] [address] [place], [address] MCH (RBC) [Entitic mass] 32.2 pg High 27.0-32.0 [facility] Comment on above: Performed By: #### L 100.0100, L500.2500 #### [facility] [address] [place], [address] MCHC (RBC) [Mass/Vol] 32.4 g/dL Normal 32-36 [facility] Comment on above: Performed By: #### L 100.0100, L500.2500 #### [facility] [address] [place], [address] MCV (RBC) [Entitic vol] 99.4 fL High 81-99 [facility] Comment on above: Performed By: #### L 100.0100, L500.2500 #### [facility] [address] [place], [address] Monocytes/100 WBC (Bld) 12.1 % High 0-10 [facility] Comment on above: Performed By: #### L 100.0100, L500.2500 #### [facility] [address] [place], [address] Neutrophils/100 WBC (Bld) 68.5 % Normal 47-70 [facility] Comment on above: Performed By: #### L 100.0100, L500.2500 #### [facility] [address] [place], [address] Nucleated RBC (Bld) [#/Vol] 0 10*3/uL Normal 0-5 [facility] Comment on above: Performed By: #### L 100.0100, L500.2500 #### [facility] [address] [place], [address] Platelet mean volume (Bld) [Entitic vol] 12.2 fL High 6.2-12.0 [facility] Comment on above: Performed By: #### L 100.0100, L500.2500 #### [facility] [address] [place], [address] Platelets (Bld) [#/Vol] 204 10*3/uL Normal 150-450 [facility] Comment on above: Performed By: #### L 100.0100, L500.2500 #### [facility] [address] [place], [address] RBC (Bld) [#/Vol] 3.42 10*6/uL Low 4.2-5.4 [facility] Comment on above: Performed By: #### L 100.0100, L500.2500 #### [facility] [address] [place], [address] RDW SD 46.4 fl High 35.1-43.9 [facility] Comment on above: Performed By: #### L 100.0100, L500.2500 #### [facility] [address] [place], [address] WBC (Bld) [#/Vol] 5.9 10*3/uL Normal 4.4-11.0 [facility] Comment on above: Performed By: #### L 100.0100, L500.2500 #### [facility] [address] [place], [address] Discharge Instructionon 01-04 Discharge Instruction [facility] Records Department [address] [place] [address] Instructions for Home/Discharge Instructions 01/24/24 1115 MR#: [id number] Acct: [id number] Name: GENNY VARELA Rep #: [id number] : 1950 73 From: Juana Jin MD PCP: Dr. Chadd Walton MD Status:ADM IN Discharge Instructions Diet Discharge Diet: Low fat / Low cholesterol Activity Discharge Activity: Return to Normal Activity Weight Bearing Status: Weight bearing as tolerated (protected weightbearing in surgical shoe) Dressing / Incision Call your doctor if you observe: Fever of 101 or Higher, Shortness of breath, Dizziness, Swelling in the ankles, Chest pain, Increased palpitations (irregular heartbeat) and Uncontrolled pain Follow Up Care Test Results: Test results from this visit will be discussed in further detail at your follow-up appointment, if applicable. Discharge Plan Admission Admit Date/Time: 01/20/24 16:51 Primary Reason for Your Visit: altered mental status Attending Provider: Juana Jin Primary Care Provider: Chadd Walton Consulting Providers: Varsha Sales; Nehemiah Callejas; Deshawn Land; Paul Petersen; Shanice Castañeda; Shameka Bear; Jillian Wallace; Daryl Eckert; Evelina Bose; Rafi Forde; Armani Matthew; Reese Pineda; Ira Ervin; Ronen Tierney; Reyna Ghosh; Bettina Curtis; Alex Vasquez; Julio Domínguez; Maxime Rocha; Walt Aviles; Carmencita Sales; Josselin Cheung Instructions Patient Instructions: ED Confusion, Altered LOC Ch Discharge Orders/Prescriptions Prescriptions: Continued chlorthalidone 25 mg tablet 25 mg PO DAILY potassium chloride [Klor-Con M20] 20 mEq tablet,ER particles/crystals 20 meq PO DAILY rosuvastatin 20 mg Tablet 20 mg PO QHS labetalol 200 mg tablet 200 mg PO BID valsartan 320 mg tablet 320 mg PO DAILY Patient Comments: TAKE 1 TABLET BY MOUTH EVERY DAY aspirin 81 mg tablet,delayed release (DR/EC) 81 mg PO DAILY@0800 pantoprazole [Protonix] 40 mg tablet,delayed release (DR/EC) 40 mg PO DAILY tramadol 50 mg tablet 50 mg PO Q8H Patient Comments: today was last dose for pt gabapentin 300 mg capsule 300 mg PO DAILY Discontinued baclofen 10 mg tablet 10 mg PO TID Referrals / Follow Up: Nehemiah Callejas DPM [Med Staff - Active Staff] - Within 2 Weeks Chadd Walton MD [Primary Care Provider] - Within 1 Week Disposition Disposition (needs filled in before D/C Order can be placed): Home, Self Care 01/24/24 1117 Juana Jin MD CC: Shameka Bear; BALDO Callejas; Reyna Ghosh; Julio Domínguez; Jillian Wallace MD; Shanice Castañeda MD; Deshawn Land MD; Dr. Paul Petersen MD; Dr. Daryl Eckert MD; Dr. Evelina Bose MD; Dr. Armani Matthew MD; Dr. Rafi Forde MD; Dr. Reese Pineda MD; Dr. Varsha Sales DO; Dr. Ronen Tierney DO; Dr. Alex Vasquez MD; Dr. Bettina Curtis MD; Dr. Chadd Walton MD; Dr. Maxime Rocha MD; Dr. Walt Aviles MD; Dr. Carmencita Sales MD; Ira Ervin DO; Josselin Cheung MD Signed Normal [facility] Basic Metabolic Profile (BMP )on 01-23-2024 BUN/CRE 12.0 RATIO Normal - [facility] Comment on above: Performed By: #### L 100.0100, L500.2500 ####[facility] [address] [place], [address] CA,Total 8.1 mg/dL Low 8.5-10.1 [facility] Comment on above: Performed By: #### L 100.0100, L500.2500 ####[facility] [address] [place], [address] Chloride [Moles/Vol] 106 mmol/L Normal 98-107 [facility] Comment on above: Performed By: #### L 100.0100, L500.2500 ####[facility] [address] [place], [address] CO2 [Moles/Vol] 24.0 mmol/L Normal 21.0-32.0 [facility] Comment on above: Performed By: #### L 100.0100, L500.2500 ####[facility] [address] [place], [address] Creatinine [Mass/Vol] 0.42 mg/dL Low 0.55-1.02 [facility] Comment on above: Result Comment: The validity of the calculated GFR GFRAA in patients over 70 years has not been determined. Clinical correlation is essential. Performed By: #### L 100.0100, L500.2500 ####[facility] [address] [place], [address] ECRCL 50.28 ml/min Normal [facility] Comment on above: Performed By: #### L 100.0100, L500.2500 ####[facility] [address] [place], [address] EST GFR - AA 191 mL/min Normal >60 [facility] Comment on above: Result Comment: Afri can Czech GFR Calc Performed By: #### L 100.0100, L500.2500 ####[facility] [address] [place], [address] GAP 10 Normal 5-15 [facility] Comment on above: Performed By: #### L 100.0100, L500.2500 ####[facility] [address] [place], [address] GFR/1.73 sq M.predicted among non-blacks MDRD (S/P/Bld) [Vol rate/Area] 158 mL/min/{1.73_m2} Normal >60 [facility] Comment on above: Result Comment: Non- GFR Calc Performed By: #### L 100.0100, L500.2500 ####[facility] [address] [place], [address] Glucose [Mass/Vol] 131 mg/dL High 74-106 [facility] Comment on above: Result Comment: Fast ing Glucose result greater than or equal to 126 mg/dL suggests DIABETES MELLITUS per A.D.A. criteria. Performed By: #### L 100.0100, L500.2500 ####[facility] [address] [place], [address] Potassium [Moles/Vol] 2.9 mmol/L Low 3.5-5.1 [facility] Comment on above: Performed By: #### L 100.0100, L500.2500 ####[facility] [address] [place], [address] Sodium [Moles/Vol] 140 mmol/L Normal 136-145 [facility] Comment on above: Performed By: #### L 100.0100, L500.2500 ####[facility] [address] [place], [address] Urea nitrogen [Mass/Vol] 5 mg/dL Low 7-18 [facility] Comment on above: Performed By: #### L 100.0100, L500.2500 ####[facility] [address] [place], [address] Brain W/WO Contraston 2023 Brain W/WO Contrast [facility] Imaging Services [address] [place] [address] Brain W/WO Contrast MR#: [id number] Acct: [id number] Name: GENNY VARELA Rep #: [id number] : 1950 F 73 From: Nirmal Brenner MD PCP: Dr. Chadd Walton MD Status: ADM IN Study: Brain W/WO Contrast Date of Exam: 01/23/24 Exam# [id number] Ordering Dr: Juana Jin MD [id number] EXAM: MR HEAD WITHOUT AND WITH INTRAVENOUS CONTRAST CLINICAL INDICATION: acute encephalopathy TECHNIQUE: Multiplanar and multisequence MR images of the brain were obtained without and with intravenous contrast. CONTRAST: 15 mL of IV [place]. COMPARISON: MRI brain without contrast 02/22/2021. FINDINGS: BRAIN AND EXTRA-AXIAL SPACES: No diffusion restriction to suspect acute or subacute ischemic infarct throughout the brain parenchyma. Multiple T2 FLAIR hyperintensity foci in the white matter posteriorly sutures are chronic white matter ischemic changes. Following IV contrast administration, there are no abnormally enhancing lesions intra-axially and extra-axially. Normal ventricles and cisterns. No intra- or extra-axial hemorrhage. No intracranial mass or mass effect. Posterior fossa structures are unremarkable. No hydrocephalus. SELLA: Unremarkable. Normal sella turcica, pituitary gland, infundibular stalk, optic chiasm and hypothalamus. AUDITORY SYSTEM: Unremarkable. The internal auditory canals are patent. BONES/JOINTS: Unremarkable. No discrete lytic or blastic abnormalities. SINUSES: Unremarkable as visualized. Clear. MASTOID AIR CELLS: Unremarkable as visualized. Clear. ORBITS: Unremarkable as visualized. Both globes, extraocular muscles, optic nerves and retrobulbar fat appear unremarkable. VASCULATURE: Unremarkable as visualized. Normal flow voids in the major intracranial circulation. MRI/Brain W/WO Contrast IMPRESSION: 1. No MRI evidence of acute or subacute ischemic infarct or acute intracranial abnormality. 2. Multiple chronic white matter ischemic changes in both cerebral hemispheres are unchanged. 3. No abnormally enhancing lesions intra-axially and extra-axially. Electronically Signed: Nirmal Brenner MD at 15:48 EDT , CC: Dr. Juana Jin MD; Dr. Chadd Walton MD Tennis Player: Signed Normal [facility] CBC W/Diff, Automatedon 01-04-2023 Absolute Lymph 0.73 X10 3/uL Low 0.83-4.51 [facility] Comment on above: Performed By: #### L 100.0100, L500.2500 ####[facility] [address] [place], [place], [phone] Absolute Neut 5.2 X10 3/uL Normal 2.0-7.7 [facility] Comment on above: Performed By: #### L 100.0100, L500.2500 ####[facility] [address] [place], [address] Basophils/100 WBC (Bld) 0.1 % Normal 0-1 [facility] Comment on above: Performed By: #### L 100.0100, L500.2500 ####[facility] [address] [place], [address] Eosinophils/100 WBC (Bld) 3.2 % Normal 0-5 [facility] Comment on above: Performed By: #### L 100.0100, L500.2500 ####[facility] [address] [place], [address] Erythrocyte distribution width (RBC) [Ratio] 12.5 % Normal 11.6-14.6 [facility] Comment on above: Performed By: #### L 100.0100, L500.2500 ####[facility] [address] [place], [address] Hematocrit (Bld) [Volume fraction] 32.7 % Low 37-47 [facility] Comment on above: Performed By: #### L 100.0100, L500.2500 ####[facility] [address] [place], [address] Hemoglobin (Bld) [Mass/Vol] 10.8 g/dL Low 12.0-15.0 [facility] Comment on above: Performed By: #### L 100.0100, L500.2500 ####[facility] [address] [place], [address] IG% 0.300 Normal 0.0-0.9 [facility] Comment on above: Result Comment: IG% - Immature Granulocytes (promyelocytes, myelocytes and metamyelocytes) > 1% indicates that a LEFT SHIFT is Present. Performed By: #### L 100.0100, L500.2500 ####[facility] [address] [place], [address] Lymphocytes/100 WBC (Bld) 10.8 % Low 19-41 [facility] Comment on above: Performed By: #### L 100.0100, L500.2500 ####[facility] [address] [place], [address] MCH (RBC) [Entitic mass] 32.5 pg High 27.0-32.0 [facility] Comment on above: Performed By: #### L 100.0100, L500.2500 ####[facility] [address] [place], [address] MCHC (RBC) [Mass/Vol] 33.0 g/dL Normal 32-36 [facility] Comment on above: Performed By: #### L 100.0100, L500.2500 ####[facility] [address] [place], [address] MCV (RBC) [Entitic vol] 98.5 fL Normal 81-99 [facility] Comment on above: Performed By: #### L 100.0100, L500.2500 ####[facility] [address] [place], [address] Monocytes/100 WBC (Bld) 9.2 % Normal 0-10 [facility] Comment on above: Performed By: #### L 100.0100, L500.2500 ####[facility] [address] [place], [address] Neutrophils/100 WBC (Bld) 76.4 % High 47-70 [facility] Comment on above: Performed By: #### L 100.0100, L500.2500 ####[facility] [address] [place], [address] Nucleated RBC (Bld) [#/Vol] 0 10*3/uL Normal 0-5 [facility] Comment on above: Performed By: #### L 100.0100, L500.2500 ####[facility] [address] [place], [address] Platelet mean volume (Bld) [Entitic vol] 11.7 fL Normal 6.2-12.0 [facility] Comment on above: Performed By: #### L 100.0100, L500.2500 ####[facility] [address] [place], [address] Platelets (Bld) [#/Vol] 178 10*3/uL Normal 150-450 [facility] Comment on above: Performed By: #### L 100.0100, L500.2500 ####[facility] [address] [place], [address] RBC (Bld) [#/Vol] 3.32 10*6/uL Low 4.2-5.4 [facility] Comment on above: Performed By: #### L 100.0100, L500.2500 ####[facility] [address] [place], [address] RDW SD 44.5 fl High 35.1-43.9 [facility] Comment on above: Performed By: #### L 100.0100, L500.2500 ####[facility] [address] [place], [address] WBC (Bld) [#/Vol] 6.8 10*3/uL Normal 4.4-11.0 [facility] Comment on above: Performed By: #### L 100.0100, L500.2500 ####[facility] [address] [place], [address] CPK Total, Creatine Kinaseon 01-23-2024 CPK TOTAL 182 U/L Normal 26-192 [facility] Comment on above: Performed By: #### L 100.0100, L500.2500 #### [facility] [address] [place], [address] MR/CON.PCM.NEon 01-23-2024 MR/CON.PCM.NE [facility] Medical Records Department [address] [place] [address] Consultation - Neurology 01/23/24 1210 MR#: [id number] Acct: [id number] Name: GENNY VARELA Rep #: [id number] : 1950 73 From: Jillian Wallace MD PCP: Dr. Chadd Walton MD Status:DIS IN Location: ICU ICU09- Assessment and Plan: Neuro Assessment/Plan GENNY VARELA is a 73 F with a past medical history of HTN, back pain, being evaluated by Teleneurology for confusion, in setting of recently starting baclofen. She has taken it before, however unclear what the dosage was compared to now. No other changes in meds, no infection on labwork or other metabolic derrangements. Exam is benign with no focal deficitis, pending imaging well. Ddx is largely medication related, but cannot rule out a stroke. Pending imaging. If imaging normal, likely related to medication effect Plan: - MRI Brain I personally attended this patient and spent a total time of 45minutes evaluating this patient including clinical assessment, review of chart, medical history imaging, and determining appropriate treatment and workup. HPI Consult Data Date of Consult: 06/21/24 HPI Narrative HPI Narrative: GENNY VARELA, is a 73 F who presented to the emergency department at [facility] on 01/14/2024 due to altered mental status. The patient significant other presented with her to the emergency department and reported yesterday she seemed a little confused prior to bed but during the day yesterday she seemed okay and was able to drive to the store. Evidently a new muscle relaxant was started last evening on her for chronic back issues. He states that she is unable to have back surgery due to the fact that she has significant coronary disease and underwent bypass surgery. It appears that baclofen was started yesterday. Her /significant other is unclear if she took it last night or how much she took. Typically, he states she is alert and oriented x 3 and ambulatory. He does indicate she has had multiple falls within the last week and had 1 yesterday with some bruising on her toe and left thigh as a result. She does have multiple bruises on her bilateral lower extremities proximally and distally as well as on her arms that appear to be in various stages of healing at the time of physical exam. She was unable to participate with any exam and unable to follow commands consistently. She was very agitated in the emergency department to the point where she required IM Geodon. Her did report that he found her on the floor next to the bed this morning and that she has been confused all morning prior to presenting to the emergency department around noon for evaluation. Patient seen and examined. was by her bedside. She remains confused. She has no active complaints. She is able to tell me her name but does not know her date of or what year is it over the current president is. She is able to tell me she is in the hospital and was still. She is mildly tachycardic. Neurologic History: Pt was more confused the first 24 hrs but today is alert and oriented. Pt only periodically sleeping. Thank is not her first time taking baclofen. Currently back to baseline [facility] Medical History Nondisplaced fracture of distal phalanx of left great toe Fracture of distal phalanx of left great toe Medication side effect Toxic metabolic encephalopathy Agitation Acidosis, lactic Closed nondisplaced fracture of left great toe Rhabdomyolysis Preop cardiovascular exam Dyspnea Acute respiratory failure with hypoxia COVID-19 Anemia Chronic pain Facial droop Postoperative atrial fibrillation (11/10/20) Essential hypertension Atherosclerosis of [place] coronary artery of [place] heart without angina pectoris Pinched vertebral nerve Scoliosis GERD (gastroesophageal reflux disease) HLD (hyperlipidemia) History of back pain Home Medications ???Medication ???Instructions ???Recorded ???Last Taken ???Type rosuvastatin 20 mg tablet 20 mg PO QHS cholesterol 12/15/20 07/16/23 History labetalol 200 mg tablet 200 mg PO BID Check with primary 0 06/12/21 07/17/23 History doctor pantoprazole 40 mg tablet,delayed 40 mg PO DAILY Check with primary 06/12/21 07/17/23 History release (Protonix) doctor valsartan 320 mg tablet 320 mg PO DAILY Check with primary 06/12/21 07/17/23 History doctor tramadol 50 mg tablet 50 mg PO Q8H pain 07/17/23 4 History gabapentin 300 mg capsule 300 mg PO DAILY 01/20/24 Unknown H istory aspirin 81 mg tablet,delayed 81 mg PO BREAKFAST #0 tabs 5 Unknown Rx release Allergy/AdvReac Type Severity Reaction Status Date / Time levofloxacin Allergy Severe leg pain Verified 01/20/24 14:17 amiodarone (more content not included)... Normal [facility] Basic Metabolic Profile (BMP )on 01-22-2024 BUN/CRE 17.6 RATIO Normal - [facility] Comment on above: Performed By: #### L 100.0100, L500.2500 #### [facility] [address] [place], [address] CA,Total 8.5 mg/dL Normal 8.5-10.1 [facility] Comment on above: Performed By: #### L 100.0100, L500.2500 #### [facility] [address] [place], [address] Chloride [Moles/Vol] 110 mmol/L High 98-107 [facility] Comment on above: Performed By: #### L 100.0100, L500.2500 #### [facility] [address] [place], [address] CO2 [Moles/Vol] 21.0 mmol/L Normal 21.0-32.0 [facility] Comment on above: Performed By: #### L 100.0100, L500.2500 #### [facility] [address] [place], [address] Creatinine [Mass/Vol] 0.40 mg/dL Low 0.55-1.02 [facility] Comment on above: Result Comment: The validity of the calculated GFR GFRAA in patients over 70 years has not been determined. Clinical correlation is essential. Performed By: #### L 100.0100, L500.2500 #### [facility] [address] [place], [address] ECRCL 50.13 ml/min Normal [facility] Comment on above: Performed By: #### L 100.0100, L500.2500 #### [facility] [address] [place], [address] EST GFR - AA 201 mL/min Normal >60 [facility] Comment on above: Result Comment: Afri can Czech GFR Calc Performed By: #### L 100.0100, L500.2500 #### [facility] [address] [place], [address] GAP 11 Normal 5-15 [facility] Comment on above: Performed By: #### L 100.0100, L500.2500 #### [facility] [address] [place], [address] GFR/1.73 sq M.predicted among non-blacks MDRD (S/P/Bld) [Vol rate/Area] 166 mL/min/{1.73_m2} Normal >60 [facility] Comment on above: Result Comment: Non- GFR Calc Performed By: #### L 100.0100, L500.2500 #### [facility] [address] [place], [address] Glucose [Mass/Vol] 125 mg/dL High 74-106 [facility] Comment on above: Result Comment: Fast ing Glucose result from 100 to 125 mg/dL suggests IMPAIRED HOMEOSTASIS per A.D.A. criteria. Performed By: #### L 100.0100, L500.2500 #### [facility] [address] [place], [address] Potassium [Moles/Vol] 2.8 mmol/L Low 3.5-5.1 [facility] Comment on above: Performed By: #### L 100.0100, L500.2500 #### [facility] [address] [place], [address] Sodium [Moles/Vol] 142 mmol/L Normal 136-145 [facility] Comment on above: Performed By: #### L 100.0100, L500.2500 #### [facility] [address] [place], [address] Urea nitrogen [Mass/Vol] 7 mg/dL Normal 7-18 [facility] Comment on above: Performed By: #### L 100.0100, L500.2500 #### [facility] [address] [place], [address] CBC W/Diff, Automatedon 01-03 Absolute Lymph 0.92 X10 3/uL Normal 0.83-4.51 [facility] Comment on above: Performed By: #### L 100.0100, L500.2500 #### [facility] [address] [place], [address] Absolute Neut 4.2 X10 3/uL Normal 2.0-7.7 [facility] Comment on above: Performed By: #### L 100.0100, L500.2500 #### [facility] [address] [place], [address] Basophils/100 WBC (Bld) 0.2 % Normal 0-1 [facility] Comment on above: Performed By: #### L 100.0100, L500.2500 #### [facility] [address] [place], [address] Eosinophils/100 WBC (Bld) 4.0 % Normal 0-5 [facility] Comment on above: Performed By: #### L 100.0100, L500.2500 #### [facility] [address] [place], [address] Erythrocyte distribution width (RBC) [Ratio] 12.6 % Normal 11.6-14.6 [facility] Comment on above: Performed By: #### L 100.0100, L500.2500 #### [facility] [address] [place], [address] Hematocrit (Bld) [Volume fraction] 33.3 % Low 37-47 [facility] Comment on above: Performed By: #### L 100.0100, L500.2500 #### [facility] [address] [place], [address] Hemoglobin (Bld) [Mass/Vol] 10.8 g/dL Low 12.0-15.0 [facility] Comment on above: Performed By: #### L 100.0100, L500.2500 #### [facility] [address] [place], [address] IG% 0.300 Normal 0.0-0.9 [facility] Comment on above: Result Comment: IG% - Immature Granulocytes (promyelocytes, myelocytes and metamyelocytes) > 1% indicates that a LEFT SHIFT is Present. Performed By: #### L 100.0100, L500.2500 #### [facility] [address] [place], [address] Lymphocytes/100 WBC (Bld) 15.5 % Low 19-41 [facility] Comment on above: Performed By: #### L 100.0100, L500.2500 #### [facility] [address] [place], [address] MCH (RBC) [Entitic mass] 32.2 pg High 27.0-32.0 [facility] Comment on above: Performed By: #### L 100.0100, L500.2500 #### [facility] [address] [place], [address] MCHC (RBC) [Mass/Vol] 32.4 g/dL Normal 32-36 [facility] Comment on above: Performed By: #### L 100.0100, L500.2500 #### [facility] [address] [place], [address] MCV (RBC) [Entitic vol] 99.4 fL High 81-99 [facility] Comment on above: Performed By: #### L 100.0100, L500.2500 #### [facility] [address] [place], [address] Monocytes/100 WBC (Bld) 8.7 % Normal 0-10 [facility] Comment on above: Performed By: #### L 100.0100, L500.2500 #### [facility] [address] [place], [address] Neutrophils/100 WBC (Bld) 71.3 % High 47-70 [facility] Comment on above: Performed By: #### L 100.0100, L500.2500 #### [facility] [address] [place], [address] Nucleated RBC (Bld) [#/Vol] 0 10*3/uL Normal 0-5 [facility] Comment on above: Performed By: #### L 100.0100, L500.2500 #### [facility] [address] [place], [address] Platelet mean volume (Bld) [Entitic vol] 12.0 fL Normal 6.2-12.0 [facility] Comment on above: Performed By: #### L 100.0100, L500.2500 #### [facility] [address] [place], [address] Platelets (Bld) [#/Vol] 171 10*3/uL Normal 150-450 [facility] Comment on above: Performed By: #### L 100.0100, L500.2500 #### [facility] [address] [place], [address] RBC (Bld) [#/Vol] 3.35 10*6/uL Low 4.2-5.4 [facility] Comment on above: Performed By: #### L 100.0100, L500.2500 #### [facility] [address] [place], [address] RDW SD 46.0 fl High 35.1-43.9 [facility] Comment on above: Performed By: #### L 100.0100, L500.2500 #### [facility] [address] [place], [address] WBC (Bld) [#/Vol] 6.0 10*3/uL Normal 4.4-11.0 [facility] Comment on above: Performed By: #### L 100.0100, L500.2500 #### [facility] [address] [place], [address] CPK Total, Creatine Kinaseon 01-22-2024 CPK TOTAL 465 U/L High 26-192 [facility] Comment on above: Performed By: #### L 100.0100, L500.2500 #### [facility] [address] [place], [address] Urine Cultureon 01-22-2024 URC Coleman cath urine is not recommended. Growth may represent distal urethral clay. Coag Negative Staph [place] Count <1000 Normal [facility] Comment on above: Performed By: #### L 100.0100, L500.2500 #### [facility] [address] [place], [address] Basic Metabolic Profile (BMP )on 01-21-2024 BUN/CRE 22.5 RATIO High 10-20 [facility] Comment on above: Performed By: #### L 100.0100, L500.2500, L501.5200, L501.9520, L501.3620, L501.2300 ####[facility] [address] [place], [address] CA,Total 9.0 mg/dL Normal 8.5-10.1 [facility] Comment on above: Performed By: #### L 100.0100, L500.2500, L501.5200, L501.9520, L501.3620, L501.2300 ####[facility] [address] [place], [address] Chloride [Moles/Vol] 116 mmol/L High 98-107 [facility] Comment on above: Performed By: #### L 100.0100, L500.2500, L501.5200, L501.9520, L501.3620, L501.2300 ####[facility] [address] [place], [address] CO2 [Moles/Vol] 18.0 mmol/L Low 21.0-32.0 [facility] Comment on above: Performed By: #### L 100.0100, L500.2500, L501.5200, L501.9520, L501.3620, L501.2300 ####[facility] [address] [place], [address] Creatinine [Mass/Vol] 0.58 mg/dL Normal 0.55-1.02 [facility] Comment on above: Result Comment: The validity of the calculated GFR GFRAA in patients over 70 years has not been determined. Clinical correlation is essential. Performed By: #### L 100.0100, L500.2500, L501.5200, L501.9520, L501.3620, L501.2300 ####[facility] [address] [place], [address] ECRCL 49.44 ml/min Normal [facility] Comment on above: Performed By: #### L 100.0100, L500.2500, L501.5200, L501.9520, L501.3620, L501.2300 ####[facility] [address] [place], [address] EST GFR - AA 131 mL/min Normal >60 [facility] Comment on above: Result Comment: Afri can Czech GFR Calc Performed By: #### L 100.0100, L500.2500, L501.5200, L501.9520, L501.3620, L501.2300 ####[facility] [address] [place], [address] GAP 12 Normal 5-15 [facility] Comment on above: Performed By: #### L 100.0100, L500.2500, L501.5200, L501.9520, L501.3620, L501.2300 ####[facility] [address] [place], [address] GFR/1.73 sq M.predicted among non-blacks MDRD (S/P/Bld) [Vol rate/Area] 108 mL/min/{1.73_m2} Normal >60 [facility] Comment on above: Result Comment: Non- GFR Calc Performed By: #### L 100.0100, L500.2500, L501.5200, L501.9520, L501.3620, L501.2300 ####[facility] [address] [place], [address] Glucose [Mass/Vol] 54 mg/dL Low 74-106 [facility] Comment on above: Performed By: #### L 100.0100, L500.2500, L501.5200, L501.9520, L501.3620, L501.2300 ####[facility] [address] [place], [address] Potassium [Moles/Vol] 3.5 mmol/L Normal 3.5-5.1 [facility] Comment on above: Performed By: #### L 100.0100, L500.2500, L501.5200, L501.9520, L501.3620, L501.2300 ####[facility] [address] [place], [address] Sodium [Moles/Vol] 146 mmol/L High 136-145 [facility] Comment on above: Performed By: #### L 100.0100, L500.2500, L501.5200, L501.9520, L501.3620, L501.2300 ####[facility] [address] [place], [address] Urea nitrogen [Mass/Vol] 13 mg/dL Normal 7-18 [facility] Comment on above: Performed By: #### L 100.0100, L500.2500, L501.5200, L501.9520, L501.3620, L501.2300 ####[facility] [address] [place], [address] Bedside Glucoseon 01-21-2024 FINGERSTICK GLU 146 mg/dL High 74-106 [facility] Comment on above: Result Comment: SHIRLEY KERNS OF PATIENT CARE PER NURSING PROTOCOL Performed By: #### L 501.080 #### [facility] [address] [place], [address] CBC W/Diff, Automatedon 01-03 Absolute Lymph 1.74 X10 3/uL Normal 0.83-4.51 [facility] Comment on above: Performed By: #### L 100.0100, L500.2500, L501.5200, L501.9520, L501.3620, L501.2300 ####[facility] [address] [place], [address] Absolute Neut 5.5 X10 3/uL Normal 2.0-7.7 [facility] [facility] Comment on above: Performed By: #### L 100.0100, L500.2500, L501.5200, L501.9520, L501.3620, L501.2300 ####[facility] [address] [place], [address] Basophils/100 WBC (Bld) 0.5 % Normal 0-1 [facility] Comment on above: Performed By: #### L 100.0100, L500.2500, L501.5200, L501.9520, L501.3620, L501.2300 ####[facility] [address] [place], [address] Eosinophils/100 WBC (Bld) 3.7 % Normal 0-5 [facility] Comment on above: Performed By: #### L 100.0100, L500.2500, L501.5200, L501.9520, L501.3620, L501.2300 ####[facility] [address] [place], [address] Erythrocyte distribution width (RBC) [Ratio] 12.5 % Normal 11.6-14.6 [facility] Comment on above: Performed By: #### L 100.0100, L500.2500, L501.5200, L501.9520, L501.3620, L501.2300 ####[facility] [address] [place], [address] Hematocrit (Bld) [Volume fraction] 37.4 % Normal 37-47 [facility] Comment on above: Performed By: #### L 100.0100, L500.2500, L501.5200, L501.9520, L501.3620, L501.2300 ####[facility] [address] [place], [address] Hemoglobin (Bld) [Mass/Vol] 11.5 g/dL Low 12.0-15.0 [facility] Comment on above: Performed By: #### L 100.0100, L500.2500, L501.5200, L501.9520, L501.3620, L501.2300 ####[facility] [address] [place], [address] IG% 0.300 Normal 0.0-0.9 [facility] Comment on above: Result Comment: IG% - Immature Granulocytes (promyelocytes, myelocytes and metamyelocytes) > 1% indicates that a LEFT SHIFT is Present. Performed By: #### L 100.0100, L500.2500, L501.5200, L501.9520, L501.3620, L501.2300 ####[facility] [address] [place], [address] Lymphocytes/100 WBC (Bld) 20.0 % Normal 19-41 [facility] Comment on above: Performed By: #### L 100.0100, L500.2500, L501.5200, L501.9520, L501.3620, L501.2300 ####[facility] [address] [place], [address] MCH (RBC) [Entitic mass] 31.9 pg Normal 27.0-32.0 [facility] Comment on above: Performed By: #### L 100.0100, L500.2500, L501.5200, L501.9520, L501.3620, L501.2300 ####[facility] [address] [place], [address] MCHC (RBC) [Mass/Vol] 30.7 g/dL Low 32-36 [facility] Comment on above: Performed By: #### L 100.0100, L500.2500, L501.5200, L501.9520, L501.3620, L501.2300 ####[facility] [address] [place], [address] MCV (RBC) [Entitic vol] 103.6 fL High 81-99 [facility] Comment on above: Performed By: #### L 100.0100, L500.2500, L501.5200, L501.9520, L501.3620, L501.2300 ####[facility] [address] [place], [address] Monocytes/100 WBC (Bld) 11.8 % High 0-10 [facility] Comment on above: Performed By: #### L 100.0100, L500.2500, L501.5200, L501.9520, L501.3620, L501.2300 ####[facility] [address] [place], [address] Neutrophils/100 WBC (Bld) 63.7 % Normal 47-70 [facility] Comment on above: Performed By: #### L 100.0100, L500.2500, L501.5200, L501.9520, L501.3620, L501.2300 ####[facility] [address] [place], [address] Nucleated RBC (Bld) [#/Vol] 0 10*3/uL Normal 0-5 [facility] Comment on above: Performed By: #### L 100.0100, L500.2500, L501.5200, L501.9520, L501.3620, L501.2300 ####[facility] [address] [place], [address] Platelet mean volume (Bld) [Entitic vol] 11.8 fL Normal 6.2-12.0 [facility] Comment on above: Performed By: #### L 100.0100, L500.2500, L501.5200, L501.9520, L501.3620, L501.2300 ####[facility] [address] [place], [address] Platelets (Bld) [#/Vol] 168 10*3/uL Normal 150-450 [facility] Comment on above: Performed By: #### L 100.0100, L500.2500, L501.5200, L501.9520, L501.3620, L501.2300 ####[facility] [address] [place], [address] RBC (Bld) [#/Vol] 3.61 10*6/uL Low 4.2-5.4 [facility] Comment on above: Performed By: #### L 100.0100, L500.2500, L501.5200, L501.9520, L501.3620, L501.2300 ####[facility] [address] [place], [address] RDW SD 47.8 fl High 35.1-43.9 [facility] Comment on above: Performed By: #### L 100.0100, L500.2500, L501.5200, L501.9520, L501.3620, L501.2300 ####[facility] [address] [place], [address] WBC (Bld) [#/Vol] 8.7 10*3/uL Normal 4.4-11.0 [facility] Comment on above: Performed By: #### L 100.0100, L500.2500, L501.5200, L501.9520, L501.3620, L501.2300 ####[facility] [address] [place], [address] CPK Total, Creatine Kinaseon 01-21-2024 CPK TOTAL 1346 U/L High 26-192 [facility] Comment on above: Performed By: #### L 100.0100, L500.2500, L501.5200, L501.9520, L501.3620, L501.2300 ####[facility] [address] [place], [address] Magnesiumon 01-21-2024 Magnesium [Mass/Vol] 1.9 mg/dL Normal 1.6-2.6 [facility] Comment on above: Performed By: #### L 100.0100, L500.2500, L501.5200, L501.9520, L501.3620, L501.2300 ####[facility] [address] [place], [address] Phosphoruson 01-21-2024 Phosphate [Mass/Vol] 3.2 mg/dL Normal 2.5-4.9 [facility] Comment on above: Performed By: #### L 100.0100, L500.2500, L501.5200, L501.9520, L501.3620, L501.2300 ####[facility] [address] [place], [address] Thyroid Stim Hormone (TSH)on 01-21-2024 TSH 0.488 uIU/mL Normal 0.358-3.740 [facility] Comment on above: Performed By: #### L 100.0100, L500.2500, L501.5200, L501.9520, L501.3620, L501.2300 ####[facility] [address] [place], [address] Abdomen/Pelvis without Conto n 01-20-2024 Abdomen/Pelvis without Cont [facility] Imaging Services [address] [place], [place] [address] Abdomen/Pelvis without Cont MR#: [id number] Acct: [id number] Name: GENNY VARELA Rep #: [id number] : 1950 F 73 From: Milan ruggiero MD PCP: Dr. Chadd Walton MD Status: REG ER Study: Abdomen/Pelvis without Cont Date of Exam: 01/03 11/25 Exam# [id number] Ordering Dr: Aquiles Mccain MD [id number] STUDY: CT ABDOMEN AND PELVIS WITHOUT CONTRAST REASON FOR EXAM: Female, 73 years old. Altered mental status, fall RADIATION DOSAGE (If Supplied By Facility): CTDIvol = ( 16.22 ) mGy, DLP = ( 814.47 ) mGycm TECHNIQUE: Transaxial images were obtained from the dome of the diaphragm to the symphysis pubis without oral contrast, and without intravenous contrast. Sagittal and coronal images were reconstructed. Individualized dose optimization techniques were used for this CT. COMPARISON: Comparison is made with prior study dated December 16, 2022. FINDINGS: Mild increased linear markings at the lung bases suggestive of scarring and/or atelectasis. Prior CABG. Coronary artery calcification. Stable dilated central intrahepatic biliary ducts. Stable dilated common bile duct down to the ampulla of Vater with a transverse dimension of 2 cm. The patient is status post cholecystectomy. There are multiple benign calcified granulomata of the spleen. Normal pancreas. Normal bilateral adrenal glands. Stable right renal cysts. Normal left kidney. Normal visualized stomach. Normal small intestine. Normal colon. There is non-visualization of the appendix. There is diffuse atherosclerotic calcification of the abdominal aorta and its major visceral branches, without a demonstrated aneurysm. Normal inferior vena cava. Normal retroperitoneum. Distended urinary bladder. Normal abdominal wall. There are diffuse degenerative changes of the visualized lumbar spine. Stable mild anterolisthesis of L4 on L5. Levoscoliosis. CT/Abdomen/Pelvis without Cont IMPRESSION: Distended urinary bladder. Status post cholecystectomy with intrahepatic blue ductal dilatation and dilatation of the common bile duct. Stable left renal cysts. Electronically Signed: Milan Pino MD at 14:01 EDT , CC: Dr. Aquiles Mccain MD; Dr. Chadd Walton MD Tennis Player: Signed Normal [facility] Acetaminophen (Tylenol) Leve eb 01-20-2024 Acetaminophen [Mass/Vol] 3.6 ug/mL Low 10.0-30.0 [facility] Comment on above: Performed By: #### L 100.0100, L500.2500 #### [facility] [address] [place], [address] Alcohol, Blood (Medical)-Ser umon 01-20-2024 SERUM ETOH < 3.0 Normal [facility] Comment on above: Result Comment: The serum:whole blood ethanol ratio is approximately 1.14 and varies slightly with hematocrit. Medical Alcohol reference interval and critical value in non-tolerant individuals; 50 - 100 Impairment 100 Intoxication 100 - 250 Severe Poisoning 250 - 400 Deep/possible fatal coma Performed By: #### L 100.0100, L500.2500 #### [facility] [address] [place], [address] Ammoniaon 01-20-2024 Ammonia (P) [Moles/Vol] 20.0 umol/L Normal 11-32 [facility] Comment on above: Performed By: #### L 5035510 ####[facility] [address] [place], [address] BNP,B-Type NATRIURETIC PEPTI Ciarra 01-20-2024 Natriuretic peptide B (Bld) [Mass/Vol] 102.9 pg/mL High 0-100 [facility] Comment on above: Performed By: #### L 501.080 #### [facility] [address] [place], [address] Blood Gases by [facility] 024 PRINCESS TEST Positive Normal [facility] Comment on above: Performed By: #### L 100.0100, L500.2500 #### [facility] [address] [place], [address] Base excess Calc (Bld) [Moles/Vol] -8 mmol/L Low -2 to +2 [facility] Comment on above: Performed By: #### L 100.0100, L500.2500 #### [facility] [address] [place], [address] Blood Gas Type ART [facility] Comment on above: Performed By: #### L 100.0100, L500.2500 #### [facility] [address] [place], [address] CO2 [Moles/Vol] 17 mmol/L [facility] Comment on above: Performed By: #### L 100.0100, L500.2500 #### [facility] [address] [place], [address] HCO3 (Bld) [Moles/Vol] 15.8 mmol/L Low 22-26 [facility] Comment on above: Performed By: #### L 100.0100, L500.2500 #### [facility] [address] [place], [address] Mode Not entered [facility] Comment on above: Performed By: #### L 100.0100, L500.2500 #### [facility] [address] [place], [address] O2 Delivery Dev Room Air Normal [facility] Comment on above: Performed By: #### L 100.0100, L500.2500 #### [facility] [address] [place], [address] pCO2 23.0 mmHg Low 35-45 [facility] Comment on above: Performed By: #### L 100.0100, L500.2500 #### [facility] [address] [place], [address] pH (Bld) 7.45 [pH] Normal 7.35-7.45 [facility] Comment on above: Performed By: #### L 100.0100, L500.2500 #### [facility] [address] [place], [address] PO2 61 mmHG Low 75-100 [facility] Comment on above: Performed By: #### L 100.0100, L500.2500 #### [facility] [address] [place], [address] SITE R Brach Normal [facility] Comment on above: Performed By: #### L 100.0100, L500.2500 #### [facility] [address] [place], [address] SO2 93 Low 95-99 [facility] Comment on above: Performed By: #### L 100.0100, L500.2500 #### [facility] [address] [place], [address] Brain/Head without Contrasto n 01-20-2024 Brain/Head without Contrast [facility] Imaging Services [address] [place] [address] Brain/Head without Contrast MR#: [id number] Acct: [id number] Name: GENNY VARELA Rep #: [id number] : 1950 F 73 From: Milan ruggiero MD PCP: Dr. Chadd Walton MD Status: REG ER Study: Brain/Head without Contrast Date of Exam: 01/03 11/25 Exam# [id number] Ordering Dr: Aquiles Mccain MD [id number] STUDY: CT BRAIN WITHOUT CONTRAST REASON FOR EXAM: Female, 73 years old. Altered mental status RADIATION DOSAGE (If Supplied By Facility): CTDIvol = ( 44.99 ) mGy, DLP = ( 897.35 ) mGycm TECHNIQUE: Transaxial CT imaging of the brain was performed without administration of intravenous contrast material. Individualized dose optimization techniques were used for this CT. COMPARISON: Comparison is made with prior study dated February 22, 2021. FINDINGS: Normal soft tissue structures. There is hyperostosis frontalis internus. Normal size ventricles and extra-axial spaces for the patient''s age. Normal white matter tracts of the cerebral hemispheres. There are small punctate calcifications of the basal ganglia which are seen in the aging brain as a normal variant. Normal brainstem. Normal cerebellum. There is no intracranial hemorrhage. There are no findings of an acute ischemic infarction. Atherosclerotic calcification of the vertebral arteries and cavernous portions of the internal carotid arteries bilaterally. Partial opacification of the sphenoid sinus. Stable nondisplaced C1 fracture of the posterior ring on the left side. CT/Brain/Head without Contrast IMPRESSION: Chronic involutional changes of the brain. Electronically Signed: Milan Pino MD at 13:57 EDT , CC: Dr. Aquiles Mccain MD; Dr. Chadd Walton MD Tennis Player: Signed Normal [facility] CBC W/Diff, Automatedon - Absolute Lymph 1.53 X10 3/uL Normal 0.83-4.51 [facility] Comment on above: Performed By: #### L 100.0100, L500.2500 #### [facility] [address] [place], [address] Absolute Neut 6.0 X10 3/uL Normal 2.0-7.7 [facility] Comment on above: Performed By: #### L 100.0100, L500.2500 #### [facility] [address] [place], [address] Basophils/100 WBC (Bld) 0.5 % Normal 0-1 [facility] Comment on above: Performed By: #### L 100.0100, L500.2500 #### [facility] [address] [place], [address] Eosinophils/100 WBC (Bld) 2.2 % Normal 0-5 [facility] Comment on above: Performed By: #### L 100.0100, L500.2500 #### [facility] [address] [place], [address] Erythrocyte distribution width (RBC) [Ratio] 12.4 % Normal 11.6-14.6 [facility] Comment on above: Performed By: #### L 100.0100, L500.2500 #### [facility] [address] [place], [address] Hematocrit (Bld) [Volume fraction] 38.9 % Normal 37-47 [facility] Comment on above: Performed By: #### L 100.0100, L500.2500 #### [facility] [address] [place], [address] Hemoglobin (Bld) [Mass/Vol] 12.1 g/dL Normal 12.0-15.0 [facility] Comment on above: Performed By: #### L 100.0100, L500.2500 #### [facility] [address] [place], [address] IG% 0.500 Normal 0.0-0.9 [facility] Comment on above: Result Comment: IG% - Immature Granulocytes (promyelocytes, myelocytes and metamyelocytes) > 1% indicates that a LEFT SHIFT is Present. Performed By: #### L 100.0100, L500.2500 #### [facility] [address] [place], [address] Lymphocytes/100 WBC (Bld) 17.9 % Low 19-41 [facility] Comment on above: Performed By: #### L 100.0100, L500.2500 #### [facility] [address] [place], [address] MCH (RBC) [Entitic mass] 31.7 pg Normal 27.0-32.0 [facility] Comment on above: Performed By: #### L 100.0100, L500.2500 #### [facility] [address] [place], [address] MCHC (RBC) [Mass/Vol] 31.1 g/dL Low 32-36 [facility] Comment on above: Performed By: #### L 100.0100, L500.2500 #### [facility] [address] [place], [address] MCV (RBC) [Entitic vol] 101.8 fL High 81-99 [facility] Comment on above: Performed By: #### L 100.0100, L500.2500 #### [facility] [address] [place], [address] Monocytes/100 WBC (Bld) 8.3 % Normal 0-10 [facility] Comment on above: Performed By: #### L 100.0100, L500.2500 #### [facility] [address] [place], [address] Neutrophils/100 WBC (Bld) 70.6 % High 47-70 [facility] Comment on above: Performed By: #### L 100.0100, L500.2500 #### [facility] [address] [place], [address] Nucleated RBC (Bld) [#/Vol] 0 10*3/uL Normal 0-5 [facility] Comment on above: Performed By: #### L 100.0100, L500.2500 #### [facility] [address] [place], [address] Platelet mean volume (Bld) [Entitic vol] 12.4 fL High 6.2-12.0 [facility] Comment on above: Performed By: #### L 100.0100, L500.2500 #### [facility] [address] [place], [address] Platelets (Bld) [#/Vol] 239 10*3/uL Normal 150-450 [facility] Comment on above: Performed By: #### L 100.0100, L500.2500 #### [facility] [address] [place], [address] RBC (Bld) [#/Vol] 3.82 10*6/uL Low 4.2-5.4 [facility] Comment on above: Performed By: #### L 100.0100, L500.2500 #### [facility] [address] [place], [address] RDW SD 46.5 fl High 35.1-43.9 [facility] Comment on above: Performed By: #### L 100.0100, L500.2500 #### [facility] [address] [place], [address] WBC (Bld) [#/Vol] 8.6 10*3/uL Normal 4.4-11.0 [facility] Comment on above: Performed By: #### L 100.0100, L500.2500 #### [facility] [address] [place], [address] CPK Total, Creatine Kinaseon 01-20-2024 CPK TOTAL 2004 U/L High 26-192 [facility] Comment on above: Order Comment: 'TROP ' Serial specimen #1, #2 or #3: 1 Performed By: #### L 100.0100, L500.2500 #### [facility] [address] [place], [address] Chest 1 View (Portable)on Chest 1 View (Portable) [facility] Imaging Services [address] [place] [address] Chest 1 View (Portable) MR#: [id number] Acct: [id number] Name: GENNY VARELA Rep #: [id number] : 1950 F 73 From: Milan ruggiero MD PCP: Dr. Chadd Walton MD Status: REG ER Study: Chest 1 View (Portable) Date of Exam: 01/20/24 Exam# [id number] Ordering Dr: Aquiles Mccain MD [id number] STUDY: X-RAY CHEST REASON FOR EXAM: Female, 73 years old. Altered MS TECHNIQUE: Single AP portable view of the chest. COMPARISON: Comparison is made with prior study July 17, 2023. FINDINGS: EKG electrodes are seen. Vascular congestion and mild CHF. 1.1 cm nodule in the peripheral lateral aspect of the right upper lobe. This was not well-seen on prior study. There there is evidence of 7.6 cm x 1.2 cm tubular structure overlying the right upper lobe. Is no demonstrated pleural abnormality. Sternal cerclage wires and vascular clips are present from a prior sternotomy and coronary artery bypass graft procedure (CABG). Normal mediastinum and lynn. Normal visualized pulmonary arteries. There is atherosclerotic calcification of the aortic arch with tortuosity. There are diffuse degenerative changes of the visualized thoracic spine. Normal visualized ribs, clavicles, and shoulders. There is no demonstrated abnormality of the visualized soft tissue structures of the upper abdomen. RAD/Chest 1 View (Portable) IMPRESSION: Findings in keeping with CHF. 1.1 cm nodule in the peripheral lateral aspect of the right upper lobe. Questionable foreign body overlying the right upper lobe as described. Electronically Signed: Milan Pino MD at 14:04 EDT , CC: Dr. Aquiles Mccain MD; Dr. Chadd Walton MD Tennis Player: Signed Normal [facility] Comprehensive Metabolic Prof ilon 01-20-2024 Albumin [Mass/Vol] 3.7 g/dL Normal 3.2-5.0 [facility] Comment on above: Order Comment: 'TROP ' Serial specimen #1, #2 or #3: 1 Performed By: #### L 100.0100, L500.2500 #### [facility] [address] [place], [address] Albumin/Globulin [Mass ratio] 1.2 {ratio} Normal 0.9-2.4 [facility] Comment on above: Order Comment: 'TROP ' Serial specimen #1, #2 or #3: 1 Performed By: #### L 100.0100, L500.2500 #### [facility] [address] [place], [address] ALK P 240 U/L High 45-117 [facility] Comment on above: Order Comment: 'TROP ' Serial specimen #1, #2 or #3: 1 Performed By: #### L 100.0100, L500.2500 #### [facility] [address] [place], [address] ALT [Catalytic activity/Vol] 36 U/L Normal 13-56 [facility] Comment on above: Order Comment: 'TROP ' Serial specimen #1, #2 or #3: 1 Performed By: #### L 100.0100, L500.2500 #### [facility] [address] [place], [address] AST [Catalytic activity/Vol] 60 U/L High 15-37 [facility] Comment on above: Order Comment: 'TROP ' Serial specimen #1, #2 or #3: 1 Performed By: #### L 100.0100, L500.2500 #### [facility] [address] [place], [address] Bilirubin [Mass/Vol] 0.60 mg/dL Normal 0.20-1.00 [facility] Comment on above: Order Comment: 'TROP ' Serial specimen #1, #2 or #3: 1 Result Comment: For patients on eltrombopag therapy, use of Dimension Trent TBIL is not recommended. Performed By: #### L 100.0100, L500.2500 #### [facility] [address] [place], [address] BUN/CRE 18.6 RATIO Normal 10-20 [facility] Comment on above: Order Comment: 'TROP ' Serial specimen #1, #2 or #3: 1 Performed By: #### L 100.0100, L500.2500 #### [facility] [address] [place], [address] CA,Total 9.2 mg/dL Normal 8.5-10.1 [facility] Comment on above: Order Comment: 'TROP ' Serial specimen #1, #2 or #3: 1 Performed By: #### L 100.0100, L500.2500 #### [facility] [address] [place], [address] Chloride [Moles/Vol] 113 mmol/L High 98-107 [facility] Comment on above: Order Comment: 'TROP ' Serial specimen #1, #2 or #3: 1 Performed By: #### L 100.0100, L500.2500 #### [facility] [facility] [address] [place], [address] CO2 [Moles/Vol] 21.0 mmol/L Normal 21.0-32.0 [facility] Comment on above: Order Comment: 'TROP ' Serial specimen #1, #2 or #3: 1 Performed By: #### L 100.0100, L500.2500 #### [facility] [address] [place], [address] Creatinine [Mass/Vol] 1.02 mg/dL Normal 0.55-1.02 [facility] Comment on above: Order Comment: 'TROP ' Serial specimen #1, #2 or #3: 1 Result Comment: The validity of the calculated GFR GFRAA in patients over 70 years has not been determined. Clinical correlation is essential. Performed By: #### L 100.0100, L500.2500 #### [facility] [address] [place], [address] ECRCL 39.23 ml/min Normal [facility] Comment on above: Order Comment: 'TROP ' Serial specimen #1, #2 or #3: 1 Performed By: #### L 100.0100, L500.2500 #### [facility] [address] [place], [address] EST GFR - AA 68 mL/min Normal >60 [facility] Comment on above: Order Comment: 'TROP ' Serial specimen #1, #2 or #3: 1 Result Comment: Afri can Czech GFR Calc Performed By: #### L 100.0100, L500.2500 #### [facility] [address] [place], [address] GAP 11 Normal 5-15 [facility] Comment on above: Order Comment: 'TROP ' Serial specimen #1, #2 or #3: 1 Performed By: #### L 100.0100, L500.2500 #### [facility] [address] [place], [address] GFR/1.73 sq M.predicted among non-blacks MDRD (S/P/Bld) [Vol rate/Area] 56 mL/min/{1.73_m2} Low >60 [facility] Comment on above: Order Comment: 'TROP ' Serial specimen #1, #2 or #3: 1 Result Comment: Non- GFR Calc Performed By: #### L 100.0100, L500.2500 #### [facility] [address] [place], [address] Globulin (S) [Mass/Vol] 3.1 g/dL Normal 2.2-4.2 [facility] Comment on above: Order Comment: 'TROP ' Serial specimen #1, #2 or #3: 1 Performed By: #### L 100.0100, L500.2500 #### [facility] [address] [place], [address] Glucose [Mass/Vol] 112 mg/dL High 74-106 [facility] Comment on above: Order Comment: 'TROP ' Serial specimen #1, #2 or #3: 1 Result Comment: Fast ing Glucose result from 100 to 125 mg/dL suggests IMPAIRED HOMEOSTASIS per A.D.A. criteria. Performed By: #### L 100.0100, L500.2500 #### [facility] [address] [place], [address] Potassium [Moles/Vol] 4.1 mmol/L Normal 3.5-5.1 [facility] Comment on above: Order Comment: 'TROP ' Serial specimen #1, #2 or #3: 1 Performed By: #### L 100.0100, L500.2500 #### [facility] [address] [place], [address] Sodium [Moles/Vol] 145 mmol/L Normal 136-145 [facility] Comment on above: Order Comment: 'TROP ' Serial specimen #1, #2 or #3: 1 Performed By: #### L 100.0100, L500.2500 #### [facility] [address] [place], [address] T PROT 6.8 g/dL Normal 6.4-8.2 [facility] Comment on above: Order Comment: 'TROP ' Serial specimen #1, #2 or #3: 1 Performed By: #### L 100.0100, L500.2500 #### [facility] [address] [place], [address] Urea nitrogen [Mass/Vol] 19 mg/dL High 7-18 [facility] Comment on above: Order Comment: 'TROP ' Serial specimen #1, #2 or #3: 1 Performed By: #### L 100.0100, L500.2500 #### [facility] [address] [place], [address] Emergency Department Summary on 01-20-2024 Emergency Department Summary [facility] Medical Records Department [address] [place] [address] Emergency Department Summary 01/20/24 MR#: [id number] Acct: [id number] Name: GENNY VARELA Rep #: [id number] : 1950 73 From: Aquiles Mccain MD PCP: Dr. Chadd Walton MD Status:REG ER Location: ED HPI History of Present Illness Chief Complaint: Alt LOC Informant: family Narrative Narrative: 73-year-old female last seen normal yesterday by her significant other, found her on the floor next to bed this morning around 7 AM, and she has been confused all day, arrives after noon in ER for evaluation. She is not able to give us any history due to severe confusion and agitation. Significant other states she has a prescription for baclofen which she has had in the past, unknown if she took it as a muscle relaxer last night. She is usually alert and oriented x 3 and ambulatory. He states she drove to the store downtown last night without difficulty. He states she has had multiple falls in the past week or so, she had 1 yesterday with some bruising on her toe and left thigh as a result of trying to get into bed using her step stool as usual, but missed and fell against the bedframe. [facility] Medical History Preop cardiovascular exam Dyspnea Acute respiratory failure with hypoxia COVID-19 Anemia Chronic pain Facial droop Postoperative atrial fibrillation (11/10/20) Essential hypertension Atherosclerosis of [place] coronary artery of [place] heart without angina pectoris Pinched vertebral nerve Scoliosis GERD (gastroesophageal reflux disease) HLD (hyperlipidemia) History of back pain Home Medications ???Medication ???Instructions ???Recorded ???Last Taken ???Type rosuvastatin 20 mg tablet 20 mg PO QHS cholesterol 12/15/20 07/16/23 History aspirin 81 mg tablet,delayed 81 mg PO DAILY@0800 Check with 06/12/21 07/17/23 History release primary doctor labetalol 200 mg tablet 200 mg PO BID Check with primary 06/12/21 07/17/23 History doctor pantoprazole 40 mg tablet,delayed 40 mg PO DAILY Check with primary 06/12/21 07/17/23 History release (Protonix) doctor valsartan 320 mg tablet 320 mg PO DAILY Check with primary 06/12/21 07/17/23 History doctor chlorthalidone 25 mg tablet 25 mg PO DAILY 08/14/21 07/17/23 History potassium chloride 20 mEq 20 meq PO DAILY 11/20/21 07/17/23 History tablet,extended release(part/cryst) (Klor-Con M) tramadol 50 mg tablet 50 mg PO Q8H pain 07/17/23 07/17/23 History baclofen 10 mg tablet 10 mg PO TID 01/20/24 Unknown History gabapentin 300 mg capsule 300 mg PO DAILY 01/20/24 Unknown History Allergy/AdvReac Type Severity Reaction Status Date / Time levofloxacin Allergy Severe leg pain Verified 01/20/24 14:17 amiodarone Allergy mental Verified 01/20/24 14:17 confusion Penicillins Allergy Unknown Verified 01/20/24 14:17 Sulfa (Sulfonamide Allergy Rash Verified 01/20/24 14:17 Antibiotics) ciprofloxacin AdvReac Rash Verified 01/20/24 14:17 lorazepam (From Ativan) AdvReac I went Verified 01/20/24 14:17 jose gzy Family History Mother Alcoholism Father Hypertension Brother Diabetes Sister Diabetes Hypertension Sister No problems noted. Son Hypertension Other Kidney disease Surgical History H/O coronary artery bypass surgery (11/08/20) History of appendectomy History of cholecystectomy History of left heart catheterization (11/03/20) Social History household members: spouse pets and animals: Yes (cats) Smoking Status: Never smoker alcohol intake: never substance use type: does not use caffeine: Yes Type: carbonated beverages ROS ROS ED Review of Systems ROS Unobtainable: due to mental status EXAM Physical Exam Const Vital Signs: 01/20/24 12:05 01/20/24 12:20 01/20/24 13:00 Temperature 96.4 F L Temperature Source Temporal Pulse Rate 124 H 124 H 77 Respiratory Rate 30 H 26 H 10 L Blood Pressure 159/72 H 134/66 H Blood Pressure Mean 101 88 Pulse Ox 91 93 Oxygen Delivery Method Room Air Nasal Cannula Oxygen Flow Rate (L/min) 2 01/20/24 13:16 01/20/24 14:08 01/20/24 15:00 Temperature Temperature Source Pulse Rate 82 90 Respiratory Rate 12 10 L Blood Pressure 138/76 H 169/73 H Blood Pressure Mean 96 105 Pulse Ox 93 96 96 Oxygen Delivery Method Nasal Cannula Nasal Cannula Nasal Cannula Oxygen Flow Rate (L/min) 2 2 2 Positive well nourished and well developed General Appearance ED: well developed HEENT Reports moist mucous membranes HEENT Narrative: No Bowling sign or (more content not included)... Normal [facility] Foot min 3 Viewson 4 Foot min 3 Views [facility] Imaging Services [address], [place] [id number] Foot min 3 Views MR#: [id number] Acct: [id number] Name: GENNY VARELA Rep #: [id number] : 1950 F 73 From: Milan ruggiero MD PCP: Dr. Chadd Walton MD Status: REG ER Study: Foot min 3 Views Date of Exam: 01/20/24 Exam# [id number] Ordering Dr: Aquiles Mccain MD [id number] STUDY: X-RAY - LEFT FOOT CLINICAL: Female, 73 years old. Swelling and bruising overlying the great toe. TECHNIQUE: 3 view(s) of the foot. COMPARISON: None. FINDINGS: Normal talus, calcaneus, and tarsal bones. Normal visualized subtalar, talonavicular, calcaneocuboid, tarsal and tarsometatarsal articulations. Normal metatarsi. There is degenerative arthrosis of the metatarsophalangeal joint of the hallux . Normal tibial and fibular sesamoid bones. Normal interphalangeal joint of the great toe. Nondisplaced fracture at the base of the distal phalanx of the great toe. Normal second through fifth metatarsophalangeal joints. Normal interphalangeal joints and phalanges of the lesser toes. Soft tissue swelling. RAD/Foot min 3 Views IMPRESSION: Nondisplaced fracture at the base of the distal pharynx of the great toe. Soft tissue swelling Electronically Signed: Milan Pino MD at 14:06 EDT Reading Location ID and State: [address] [place] [address] , Service support , CC: Dr. Aquiles Mccain MD; Dr. Chadd Walton MD Tennis Player: Signed Normal [facility] H AND P Exam - Hospitaliston 01-20-2024 H&P Exam - Hospitalist [facility] Medical Records Department [address] [place] [address] H P Exam - Hospitalist 01/20/24 1505 MR#: [id number] Acct: [id number] Name: GENNY VARELA Rep #: [id number] : 1950 73 From: Varsha Sales DO PCP: Dr. Chadd Walton MD Status:ADM IN Location: ICU ICU09-1 HPI - General General Date of Admission: 01/20/24 Date of Service: 01/20/24 Chief Complaint: Altered mental status HPI Narrative GENNY VARELA, is a 73 F who presented to the emergency department at [facility] on 01/14/2024 due to altered mental status. The patient significant other presented with her to the emergency department and reported yesterday she seemed a little confused prior to bed but during the day yesterday she seemed okay and was able to drive to the store. Evidently a new muscle relaxant was started last evening on her for chronic back issues. He states that she is unable to have back surgery due to the fact that she has significant coronary disease and underwent bypass surgery. It appears that baclofen was started yesterday. Her /significant other is unclear if she took it last night or how much she took. Typically, he states she is alert and oriented x 3 and ambulatory. He does indicate she has had multiple falls within the last week and had 1 yesterday with some bruising on her toe and left thigh as a result. She does have multiple bruises on her bilateral lower extremities proximally and distally as well as on her arms that appear to be in various stages of healing at the time of physical exam. She was unable to participate with any exam and unable to follow commands consistently. She was very agitated in the emergency department to the point where she required IM Geodon. Her did report that he found her on the floor next to the bed this morning and that she has been confused all morning prior to presenting to the emergency department around noon for evaluation. Vital signs on presentation showed a temperature of 96.4, initial heart rate was 124 with repeat at 77, initial respiratory rate was 30 with repeat at 12, oxygen saturation was 91% on room air and subsequently improved to 93% on 2 L nasal cannula. Her CBC was overall unremarkable. She had a very minimal left shift with a 70.6% neutrophilia. Coags were normal. An ABG was performed and pH was normal at 7.45 with a pCO2 of 23 and a pO2 of 61 on room air. Oxygen saturation was 93%. Chemistry panel was unremarkable with normal renal function. Initial lactic acid was 4.8 with a repeat at 0.8. Liver function was overtly unremarkable. BNP was 112.9. Her UA was unremarkable other than some specific gravity elevation at 1.02. Toxicology screen was negative for salicylates, acetaminophen level was only 3.6 and screen was otherwise negative. Ethyl alcohol level was unremarkable at less than 3. Ammonia level is pending. EKG shows normal sinus rhythm with prolonged QTc at 510. No ST-T wave changes were noted to be consistent with acute ischemia. CT of the abdomen pelvis was done as patient was not a reliable historian and showed only distended bladder, intrahepatic bile ducts consistent with previous cholecystectomy and stable left renal cysts, CT of the brain showed chronic involutional changes, chest x-ray was suggestive of some mild volume overload and a 1.1 cm nodule in the peripheral aspect of the right upper lobe, foot x-ray was done due to ecchymosis noted on her left foot at the great toe and showed a nondisplaced fracture at the base of the distal phalanx of the great toe with soft tissue swelling. COVID/flu/RSV was negative. Cultures were sent however overall suspicion for infection was low and therefore antibiotics were not started. Highly suspect this may be medication induced as patient has had previous intolerance to oral lorazepam which caused excessive agitation as well. Patient was admitted to the ICU and case further IV medication was required for agitation such as Precedex. [facility] Medical History Preop cardiovascular exam Dyspnea Acute respiratory failure with hypoxia COVID-19 Anemia Chronic pain Facial droop Postoperative atrial fibrillation (11/10/20) Essential hypertension Atherosclerosis of [place] coronary artery of [place] heart without angina pectoris Pinched vertebral nerve Scoliosis GERD (gastroesophageal reflux disease) HLD (hyperlipidemia) History of back pain Home Medications ???Medication ???Instructions ???Recorded ???Last Taken ???Type rosuvastatin 20 mg tablet 20 mg PO QHS cholesterol 12/15/20 07/16/23 History aspirin 81 mg tablet,delayed 81 mg PO DAILY@0800 Check with 06/12/21 07/17/23 History release primary doctor labetalol 200 mg tablet 200 mg PO BID Check with primary 06/12/21 07/17/23 History doctor pantoprazole 40 mg tabl (more content not included)... Normal [facility] L501.4020on 01-20-2024 TROPONIN-I HS 39 pg/mL Normal 3.0-54.0 [facility] Comment on above: Order Comment: 'TROP ' Serial specimen #1, #2 or #3: 1 Result Comment: Jahaira merrill Note: New Test Units and Gender Specific Reference Ranges. For more information see Policy Stat Procedure [place] High Sensitivity Troponin (TNIH) and attachments. Performed By: #### L 100.0100, L500.2500 #### [facility] [address] [place], [address] Lactic Acidon 01-20-2024 Lactate [Moles/Vol] 0.8 mmol/L Normal 0.4-1.9 [facility] Comment on above: Order Comment: Y Performed By: #### L 100.0100, L500.2500 #### [facility] [address] [place], [address] Lactate [Moles/Vol] 4.8 mmol/L Invalid Interpretation Code 0.4-1.9 [facility] Comment on above: Order Comment: Y Result Comment: Crit ical Result(s) Called at: 13:59:19 01/20/2024 by: Armani Nguyen to Yadira Wilder. Results read back by same. Performed By: #### L 100.0100, L500.2500 #### [facility] [address] [place], [address] M100.678on 01-20-2024 M100.678 Pending SARS-CoV-2 (COVID 19) Negative INFLUENZA A Negative INFLUENZA B Negative RSV PCR Negative Normal [facility] Comment on above: Performed By: #### L 100.0100, L500.2500 #### [facility] [address] [place], [address] Partial Thromboplast Timeon 01-20-2024 aPTT Coag (Bld) [Time] 31.2 s Normal 24.1-36.2 [facility] Comment on above: Performed By: #### L 100.0100, L500.2500 #### [facility] [address] [place], [address] Prothrombin Time w/INRon INR Coag (PPP) [Relative time] 1.1 {INR} Normal [facility] Comment on above: Performed By: #### L 100.0100, L500.2500 #### [facility] [address] [place], [address] PT Coag (PPP) [Time] 14.0 s Normal 11.7-14.9 [facility] Comment on above: Performed By: #### L 100.0100, L500.2500 #### [facility] [address] [place], [address] Salicylateon 01-20-2024 SALICYLATE < 1.7 Low 2.8-20.0 [facility] Comment on above: Performed By: #### L 100.0100, L500.2500 #### [facility] [address] [place], [address] Urinalysis, Completeon 01-19 BACTERIA 1+ /hpf Normal None Seen [facility] Comment on above: Order Comment: COLLE CTOR TO SPECIFY Performed By: #### L 100.0100, L500.2500 #### [facility] [address] [place], [address] EPI,SQUAMOUS 0 SEEN Normal 5-10 [facility] Comment on above: Order Comment: COLLE CTOR TO SPECIFY Performed By: #### L 100.0100, L500.2500 #### [facility] [address] [place], [address] Mucus Ql (Urine sed) 0 SEEN Normal [facility] Comment on above: Order Comment: COLLE CTOR TO SPECIFY Performed By: #### L 100.0100, L500.2500 #### [facility] [address] [place], [address] RBC 0 SEEN Normal 0-5 [facility] Comment on above: Order Comment: COLLE CTOR TO SPECIFY Performed By: #### L 100.0100, L500.2500 #### [facility] [address] [place], [address] WBC 0 SEEN Normal 0-5 [facility] Comment on above: Order Comment: COLLE CTOR TO SPECIFY Performed By: #### L 100.0100, L500.2500 #### [facility] [address] [place], [address] Urine Drug Screen (VISTA)on 01-20-2024 AMPHETAMINES Negative Normal <1000 ng/mL [facility] Comment on above: Performed By: #### L 100.0100, L500.2500 #### [facility] [address] [place], [address] BARBITIURATES Negative Normal < 200 ng/mL [facility] Comment on above: Performed By: #### L 100.0100, L500.2500 #### [facility] [address] [place], [address] BENZODIAZIPINE Negative Normal < 200 ng/mL [facility] Comment on above: Performed By: #### L 100.0100, L500.2500 #### [facility] [address] [place], [address] COCAINE Negative Normal < 300 ng/mL [facility] Comment on above: Performed By: #### L 100.0100, L500.2500 #### [facility] [address] [place], [address] ECSTACY Negative Normal < 500 ng/mL [facility] Comment on above: Performed By: #### L 100.0100, L500.2500 #### [facility] [address] [place], [address] METHADONE Negative Normal < 300 ng/mL [facility] Comment on above: Performed By: #### L 100.0100, L500.2500 #### [facility] [address] [place], [address] OPIATES Negative Normal < 300 ng/mL [facility] Comment on above: Performed By: #### L 100.0100, L500.2500 #### [facility] [address] [place], [address] PCP Negative Normal < 25 ng/mL [facility] Comment on above: Performed By: #### L 100.0100, L500.2500 #### [facility] [address] [place], [address] THC Negative Normal < 50 ng/mL [facility] Comment on above: Performed By: #### L 100.0100, L500.2500 #### [facility] [address] [place], [address] VISTA UDS PH 5 Normal [facility] Comment on above: Performed By: #### L 100.0100, L500.2500 #### [facility] [address] [place], [address] PT D/C Summary (1)on 024 PT D/C Summary (1) [facility] Physical Therapy [facility] [place] [address] / REHABILITATION SERVICES DISCHARGE SUMMARY MR#: [id number] Acct: [id number] Name: GENNY VARELA Rep #: [id number] : 1950 73 From: Melissa Quinonez PT, Cert. MDT Referring Dr.: Dr. Chadd Walton MD Status: REG RCR [facility] Discharge Summary D/C summary: It has been my pleasure to treat GENNY VARELA referred by Dr. Chadd Walton MD, with the diagnosis of BACK PAIN for a total of 6 visit(s). Discharge Date: 01/13/24 Please see the following information for a summary of their discharge status. Subjective Subjective: PATIENT REPORTS WENT TO SEE DR. WALTON YESTERDAY FOR HER BACK AND LEG PAIN. SHE ALSO REPORTS INCREASED R KNEE PAIN ABOUT 10 DAYS AGO FOR NO APPARENT REASON. SHE REPORTS HE PRESCRIBED A STRONGER MUSCLE RELAXER AND RENEWED HER PAIN MEDICINE. FOLLOW UP WITH DR. WALTON PENDING IN 3 MONTHS. SHE STATES SHE WANTS TO CONTINUE THE WATER THERAPY BECAUSE IT RELAXES HER BACK AND LEGS SOME BUT SHE DOESN'T KNOW HOW MUCH SHE CAN AFFORD. SHE STATES SHE GETS SOME RELIEF IN THE POOL BUT MISSED 2 VISITS DUE TO diarrhea. Pain LB: Pain Intensity (Out of 10): 5 KNees: Pain Intensity (Out of 10): 7 Overall Improvement % Improvement: 10 Objective Objective/Function: THIS PATIENT AMBULATES INDEP'LY INTO PT TODAY LIMPING ON HER R LE WITH DECREASED CADANCE AND INCREASED TRUNK FLEXION. SHE IS UNABLE TO SLS ON HER R LE AND UNABLE TO HEEL WALK OR TOE WALK. Motor deficit: R HIP 4-/5, KNEE 3-/5, ANKLE 4/5. L HIP 4-/5, KNEE 3+/5, ANKLE 4/5. ROM: R KNEE: 0-0-104, L KNEE 0-0-118. GIRTH MEASUREMENTS: R KNEE JT LINE 36CM, L KNEE 36CM. Dural Signs: POSITIVE CY LE'S L > R Lumbar mvmt loss: flex - MOD ext - CARIDAD R SG - CARIDAD L SG - MOD PATIENT C/O INCREASED BACK PAIN WITH LUMBAR ROM TESTING ALL PLANES Core strength: POOR Palpation: CY LUMBAR TENDERNESS WITH LIGHT PALPATION. PATIENT ALSO HAS R KNEE TENDERNESS WITH LIGHT PALPATION THROUGHOUT THE JOINT. PATIENT REPORTS THERAPY IS REALLY COST PROHIBITIVE BUT DOES GIVE HER SOME RELIEF. SHE WOULD LIKE TO TRY TO CONTINUE WHAT SHE HAS LEARNED IN THERAPY WITH A MEMBERSHIP HERE AT [facility] FOR THE TIME BEING AND SEE HOW IT GOES. THIS PT ENCOURAGED PATIENT TO KEEP ALL EX'S IN COMFORTABLE ROM AND INTENSITY AND FOLLOW BACK UP WITH DR. WALTON IF NOT IMPROVING. PATIENT AGREEABLE. Goals Goal 1:: DECREASE C/O BACK AND LE SX'S BY AT LEAST 50% TO EASE ADL AND SLEEP FUNCTION Goal Progress: Progressing Goal 2:: PATIENT WILL SCORE AT LEAST 5 POINTS BETTER ON THE BACK OSWESTRY QUESTIONNAIRE Goal 3:: PATIENT WILL BE ABLE TO TOLERATE AT LEAST 5 EXERCISES THAT HELP INCREASE HER CORE OR LEG STRENGTH OR ROM. Goal Progress: Progressing Plan Plan: D/C TO INDEP WATER EXERCISE AT PATIENT REQUEST. D/C Information d/c sentence: If there are questions or concerns regarding this patient's physical therapy, please feel free to call me at [phone]. Thank you for the referral of this patient. Sincerely, Melissa Quinonez PT, Cert MDT Balance/Gait/Functional tests Improvement % Improvement: 01/13/24 1213 CC: Dr. Chadd Walton MD KADEN Signed Normal [facility] Inital Evaluation (1) - PTon 12-18-2023 Inital Evaluation (1) - PT [facility] [address] [place] [address] / REHABILITATION SERVICES INITIAL EVALUATION MR#: [id number] Acct: [id number] Name: GENNY VARELA Rep #: [id number] : 1950 73 From: Neyda Florence PT. MDT Referring Dr.: Dr. Chadd Walton MD Status: REG [facility] Insurance: [facility] SELF PAY INSURANCE Patient's Visit Information Visit Information Visit Information: GENNY VARELA is a 73 year old F referred to Physical Therapy by Dr. Chadd Walton MD with a diagnosis of BACK PAIN. Date of Evaluation: 12/18/23 Physical Therapist: Melissa Quinonez PT, Cert MDT Visit Plan Frequency: 2-3x /Week Duration: 4-6 Weeks Plan: AQUATIC THERAPY (PATIENT HAS A POOL AT HOME) 2X'S A WK X 4-6 WKS FOR BACK AND LEG PAIN RELIEF, CORE AND LE ROM, STRETCHING AND STRENGTHEING WITH A NEUTRAL SPINE PROGRESSING ROM TOLERATED. POSTURE TRAINING. INSTRUCTION IN PROPER BODY MECHANICS. HEP INSTRUCION. Subjective Subjective: Work/Leisure: RETIRED. LIVES IN ONE STORY HOME. 2 STEPS INTO HOME Present symptoms: CY LOW BACK PAIN, L THIGH AND LEG PAIN. PATIENT DENIES L LE NUMBNESS AND TINGLING. NOT USUALLY INTO FOOT. CY LEG CRAMP L MUCH GREATER THAN RIGHT AND MORE AT NIGHT THAN DURING THE DAY. Present since: CHRONIC FOR YEARS Pain Scale: WORST 8/10, LEAST 4/10 Currently: 6/10 Is it getting better, worse or staying the same: GETTING WORSE Commenced as a result of: NO APPARENT REASON Symptoms at onset: LOW BACK PAIN Worse: WALKING, VACUUMING, MOPPING, CARRYING LAUNDRY BASKET, SWEEPING WITH BROOM, WORSE IN MORNING, NIGHT, LIFTING, Better: TRAMADOL, LONG HOT BATH, MUSCLE RELAXER. ICY HOT Disturbed sleep: YES Previous history/Previous treatment: PINCHED N. L4 AND L5 DX'D ABOUT 10 YEARS AGO. ALSO DX'D WITH SCOLIOSIS. LONG H/O UPPER BACK PAIN PRIOR TO LOW BACK DX. BACK SURGERY RECOMMENDED ABOUT 4 YEARS AGO BUT STARTED FEELING PRESSURE ON CHEST AND HAD TO HAVE QUINTUPLE HEART BYPASS SURGERY. Treatment this episode: TRAMADOL, M. RELAXER. Coughing/sneezing/straini ng: POSITIVE FOR INCREASED PAIN. Gait: TIME AND DISTANCE LIMITED. PATIENT DENIES USE OF AD'S. REPORTS DIFFICULTY STANDING UP STRAIGHT UPON RISING FROM SITTING. ALSO GETS MORE DIFFICULT TO STAND UP STRAIGHT THE FURTHER SHE WALKS. Bowel or Bladder Dysfunction: STRESS UI. Accidents: NO Unexplained weight loss: NO Imaging: NONE RECENT. PMH/Recent major surgery: L CTS, L RCR. SCOLIOSIS.R FINGER PROBLEMS. HIGH CHOLESTEROL, HTN OTHER: PATIENT IS READY TO CONSIDER BACK SURGERY AGAIN IF SHE IS HEATHY ENOUGH AND REQUESTED PT. STATES SHE DOES NOT WANT TO HAVE INJECTIONS AND THEY WERE RECOMMENDED BY INSURANCE IN THE PAST. Objective Objective: Sitting/Standing Posture: SCOLIOSIS Other Observations: INDEP ANTALGIC GAIT INTO PT WITHOUT ANY AD'S INTO PT. INDEP DIFFICULT TRANSFER SIT TO STAND WITHOUT UE ASSIST. DIFFICULTY GETTING UPRIGHT AND INITIATING GAIT AFTER SITTING. DECREASED CADANCE AND LIMPING ON LLE DURING GAIT. Sensory deficit: CY LE LIGHT TOUCH SENSATION GROSSLY INTACT AND SYMMETRICAL ROM deficit: TIGHT CY HIP FLEXORS, HS'S AND CALVES. Motor deficit: CY LE WEAKNESS L > R. R HIP 4/5, KNEE 4/5, ANKLE 5/5. L HIP 3+/5, KNEE 3+/5, ANKLE 4/5. PATIENT IS ABLE TO WALK ON HER TOES AND WALK ON HER HEELS WITH ON UE LIGHT ASSIST. Reflexes: R QUAD 2+, L QUAD 1+. R ACHILLES 2+, L ACHILLES 1+. Dural Signs: POSITIVE CY LE'S L > R Lumbar mvmt loss: flex - MOD ext - CARIDAD R SG - CARIDAD L SG - MOD PATIENT C/O INCREASED BACK PAIN WITH LUMBAR ROM TESTING ALL PLANES Core strength: POOR Palpation: CY LUMBAR TENDERNESS WITH LIGHT PALPATION. Goals Goal 1:: DECREASE C/O BACK AND LE SX'S BY AT LEAST 50% TO EASE ADL AND SLEEP FUNCTION Goal Time Frame: 4-6 Weeks Goal 2:: PATIENT WILL SCORE AT LEAST 5 POINTS BETTER ON THE BACK OSWESTRY QUESTIONNAIRE Goal Time Frame: 4-6 Weeks Goal 3:: PATIENT WILL BE ABLE TO TOLERATE AT LEAST 5 EXERCISES THAT HELP INCREASE HER CORE OR LEG STRENGTH OR ROM. Goal Time Frame: 4-6 Weeks Rehabilitation Potential Physical Therapy Diagnosis: THIS PATIENT PRESENTS TO PT WITH BACK AND LE PAIN, WEAKNESS, STIFFNESS AND HYPOMOBILITY. Rehabilitation Potential: Fair Anticipated Interventions Patient/Client Instruction: Educate patient on: Condition, Plan of Care and Risk Factors For the Purpose of:: To improve self management Therapeutic Exercise to Include: Strength training, Body mechanics, Postural training, Flexibilty training, Gait and locomotor training, Neuromotor development, In an aquatic setting and Dynamic Lumbar Stabilization For the Purpose of:: To decrease pain, To improve muscle performance and motor function, To increase tolerance to activity/condition/positi on, To improve ability of physical actions for home/community/work/leisu re and To improve gait and locomotor functions Text: (more content not included)... Normal [facility] Basophil percentageOrdered B y: Chadd Walton on 08-20-2023 Chloride [Moles/Vol] 107 mmol/L 98-107 [facility] Cholesterol [Mass/Vol] 140 mg/dL <200 [facility] Comment on above: <200 mg/dL Desirable 200-240 mg/dL Borderline >240 mg/dL High Risk Glucose [Mass/Vol] 159 mg/dL 74-106 [facility] Comment on above: Fasting Glucose resu lt greater than or equal to 126 mg/dL suggests DIABETES MELLITUS per A.D.A. criteria. Potassium [Moles/Vol] 4.8 mmol/L 3.5-5.1 [facility] Sodium [Moles/Vol] 138 mmol/L 136-145 [facility] Triglyceride [Mass/Vol] 165 mg/dL <199 [facility] Comment on above: The drugs N-Acetylcy steine and Metamizole may falsely depress this assay.Serum Triglycerides Reference Interval Normal <150 mg/dL Borderline high 150 - 199 mg/dL High 200 - 499 mg/dL Very High > or = 500 mg/dL Laboratory - Chemistry and C hemistry - challengeOrdered By: Chadd Walton on 08-20-2023 Cholesterol in HDL [Mass/Vol] 62 mg/dL >40 [facility] Comment on above: The drugs N-Acetylcy steine and Metamizole may falsely depress this assay. Reference Range HDL <40 mg/dL Low HDL Cholesterol HDL >or= 60 mg/dL High HDL Cholesterol Cholesterol in LDL [Mass/Vol] 45 mg/dL 0-130 [facility] CO2 [Moles/Vol] 25.0 mmol/L 21.0-32.0 [facility] Urea nitrogen/Creatinine [Mass ratio] 28.3 mg/mg 10-20 [facility] No Panel InformationOrdered By: Chadd Walton on 08-20-2023 Estimated GFR (MDRD) Amer 48 mL/min >60 [facility] Comment on above: GFR Calc Estimated GFR (MDRD) Non-Af Amer 40 mL/min >60 [facility] Comment on above: Non- GFR Calc VLDL Cholesterol 33 mg/dL 5-40 [facility] Serum or plasma calcium steffen urement (mass/volume)Ordered By: Chadd Walton on 08-20-2023 Calcium [Mass/Vol] 8.7 mg/dL 8.5-10.1 [facility] Serum or plasma creatinine m easurement (mass/volume)Ordered By: Chadd Walton on 08-20-2023 Creatinine [Mass/Vol] 1.38 mg/dL 0.55-1.02 [facility] Comment on above: The validity of the calculated GFR & GFRAA in patients over 70 years has not been determined. Clinical correlation is essential. Serum or plasma urea nitroge n measurement (mass/volume)Ordered By: Chadd Walton on 08-20-2023 Urea nitrogen [Mass/Vol] 39 mg/dL 7-18 [facility] Thin prep Papanicolaou smear with manual screeningOrdered By: Chadd Walton on 08-20-2023 Thin prep Papanicolaou smear with manual screening 6 5-15 [facility] Absolute lymphocyte countOrd ered By: Jesse Esparza on 07-17-2023 Lymphocytes Auto (Unsp spec) [#/Vol] 1.28 10*3/uL 0.83-4.51 [facility] Automated lymphocyte count a s percentage of total leukocytesOrdered By: Jesse Esparza on 07-17-2023 Lymphocytes/100 WBC Auto (Unsp spec) 22.7 % 19-41 [facility] Basophil percentageOrdered B y: Jesse Esparza on 07-17-2023 Basophils/100 WBC (Bld) 0.4 % 0-1 [facility] Chloride [Moles/Vol] 109 mmol/L 98-107 [facility] Eosinophils/100 WBC (Bld) 7.3 % 0-5 [facility] Glucose [Mass/Vol] 80 mg/dL 74-106 [facility] Hemoglobin (Bld) [Mass/Vol] 11.1 g/dL 12.0-15.0 [facility] Monocytes/100 WBC (Bld) 13.3 % 0-10 [facility] Neutrophils (Bld) [#/Vol] 3.2 10*3/uL 2.0-7.7 [facility] Neutrophils/100 WBC (Bld) 56.1 % 47-70 [facility] Potassium [Moles/Vol] 4.5 mmol/L 3.5-5.1 [facility] Sodium [Moles/Vol] 139 mmol/L 136-145 [facility] WBC (Bld) [#/Vol] 5.6 10*3/uL 4.4-11.0 [facility] Determination of erythrocyte mean corpuscular volume (MCV)Ordered By: Jesse Esparza on 07-17-2023 MCV (RBC) [Entitic vol] 103.8 fL 81-99 [facility] Erythrocyte distribution wid th ratioOrdered By: Jesse Esparza on 07-17-2023 Erythrocyte distribution width (RBC) [Ratio] 13.4 % 11.6-14.6 [facility] Erythrocyte distribution wid th standard deviationOrdered By: Jesse Esparza on 07-17-2023 Erythrocyte distribution width (RBC) [Entitic vol] 51.0 fL 35.1-43.9 [facility] Hematocrit Auto (Bld) [Volum e fraction]Ordered By: Jesse Epsarza on 07-17-2023 Hematocrit (Bld) [Volume fraction] 35.5 % 37-47 [facility] Immature granulocytes/100 WB C Auto (Bld)Ordered By: Jesse Esparza on 07-17-2023 Immature granulocytes/100 WBC (Bld) 0.200 % 0.0-0.9 [facility] Comment on above: IG% - Immature Granu locytes (promyelocytes, myelocytes and metamyelocytes) > 1% indicates that a LEFT SHIFT is Present. Laboratory - Chemistry and C hemistry - challengeOrdered By: Jesse Esparza on 07-17-2023 CO2 [Moles/Vol] 24.0 mmol/L 21.0-32.0 [facility] Urea nitrogen/Creatinine [Mass ratio] 21.3 mg/mg 10-20 [facility] Laboratory - Hematology and Cell countsOrdered By: Jesse Esparza on 07-17-2023 MCH (RBC) [Entitic mass] 32.5 pg 27.0-32.0 [facility] MCHC (RBC) [Mass/Vol] 31.3 g/dL 32-36 [facility] Nucleated RBC/100 WBC (Bld) [Ratio] 0 % 0-5 [facility] Platelet mean volume (Bld) [Entitic vol] 11.7 fL 6.2-12.0 [facility] Platelets (Bld) [#/Vol] 210 10*3/uL 150-450 [facility] No Panel InformationOrdered By: Jesse Esparza on 07-17-2023 Troponin I High Sensitivity 10 pg/mL 3.0-54.0 [facility] Comment on above: Please Note: [place] t Units and Gender Specific Reference Ranges. For more information see Policy Stat Procedure [place] High Sensitivity Troponin (TNIH) and attachments. Estimated Creatinine Clearance Calc 23.98 ml/min [facility] Estimated GFR (MDRD) Amer 38 mL/min >60 [facility] Comment on above: GFR Calc Estimated GFR (MDRD) Non-Af Amer 31 mL/min >60 [facility] Comment on above: Non- GFR Calc RBC Auto (Bld) [#/Vol]Ordere d By: Jesse Esparza on 07-17-2023 RBC (Bld) [#/Vol] 3.42 10*6/uL 4.2-5.4 [facility] Serum or plasma calcium steffen urement (mass/volume)Ordered By: Jesse Esparza on 07-17-2023 Calcium [Mass/Vol] 8.7 mg/dL 8.5-10.1 [facility] Serum or plasma creatinine m easurement (mass/volume)Ordered By: Jesse Esparza on 07-17-2023 Creatinine [Mass/Vol] 1.69 mg/dL 0.55-1.02 [facility] Comment on above: The validity of the calculated GFR & GFRAA in patients over 70 years has not been determined. Clinical correlation is essential. Serum or plasma urea nitroge n measurement (mass/volume)Ordered By: Jesse Esparza on 07-17-2023 Urea nitrogen [Mass/Vol] 36 mg/dL 11-19 [facility] Thin prep Papanicolaou smear with manual screeningOrdered By: Jesse Esparza on 07-17-2023 Thin prep Papanicolaou smear with manual screening 6 09-16 [facility] Laboratory - Hematology and Cell countson 12-18-2022 HbA1c (Bld) [Mass fraction] 6.3 % Normal 4.6 - 7.1 % [facility], [facility] COMPREHENSIVE METABOLIC PANE Eb 12-12-2022 Albumin [Mass/Vol] 4.4 g/dL Normal 3.6-5.1 [facility] Comment on above: Performed By: #### 7 600, [id number] #### [facility] [address], [address] [place], [place] [id number] Auto Overhauler: Mike Roach MD Albumin/Globulin [Mass ratio] 2.2 {ratio} Normal 1.0-2.5 [facility] Comment on above: Performed By: #### 7 600, [id number] #### [facility] [address], [address] [place], [place] [id number] Auto Overhauler: Mike Roach MD ALP [Catalytic activity/Vol] 166 U/L High 37-153 [facility] Comment on above: Performed By: #### 7 600, [id number] #### [facility] [address], [address] [place], [place] [id number] Auto Overhauler: Mike Roach MD ALT [Catalytic activity/Vol] 16 U/L Normal 6-29 [facility] Comment on above: Performed By: #### 7 600, [id number] #### [facility] [place] [address] Auto Overhauler: Mike Roach MD AST [Catalytic activity/Vol] 17 U/L Normal 10-35 [facility] Comment on above: Performed By: #### 7 600, [id number] #### [facility] of [place] [address] Auto Overhauler: Mike Roach MD Bilirubin [Mass/Vol] 0.4 mg/dL Normal 0.2-1.2 [facility] Comment on above: Performed By: #### 7 600, [id number] #### [facility] [place] [address] Auto Overhauler: Mike Roach MD BUN/CREATININE RATIO SEE NOTE: Normal 6-22 [facility] Comment on above: Result Comment: Not Reported: BUN and Creatinine are within reference range. Performed By: #### 7 600, [id number] #### [facility] [place] [address] Auto Overhauler: Mike Roach MD Calcium [Mass/Vol] 9.4 mg/dL Normal 8.6-10.4 [facility] Comment on above: Performed By: #### 7 600, [id number] #### [facility] [place] [address] Auto Overhauler: Mike Roach MD Chloride [Moles/Vol] 109 mmol/L Normal 98-110 [facility] Comment on above: Performed By: #### 7 600, 76392 #### [facility] of [place] [address] Auto Overhauler: Mike Roach MD CO2 [Moles/Vol] 25 mmol/L Normal 20-32 [facility] Comment on above: Performed By: #### 7 600, [id number] #### [facility] of [place] [address] [place] [address] Auto Overhauler: Mike Roach MD Creatinine [Mass/Vol] 0.67 mg/dL Normal 0.60-1.[address] [facility] Comment on above: Performed By: #### 7 600, [id number] #### [facility] [address], [address] [place] [address] Auto Overhauler: Mike Roach MD GFR/1.73 sq M.predicted among non-blacks MDRD (S/P/Bld) [Vol rate/Area] 92 mL/min/{1.73_m2} Normal > OR = 60 [facility] Comment on above: Performed By: #### 7 600, [id number] #### [facility] [address], [address] [place] [address] Auto Overhauler: Mike Roach MD Globulin (S) [Mass/Vol] 2.0 g/dL Normal 1.9-3.7 [facility] Comment on above: Performed By: #### 7 600, [id number] #### [facility] [address], [address] [place] [address] Auto Overhauler: Mike Roach MD Glucose [Mass/Vol] 150 mg/dL High 65-99 [facility] Comment on above: Result Comment: Fasting reference interval For someone without known diabetes, a glucose value >125 mg/dL indicates that they may have diabetes and this should be confirmed with a follow-up test. Performed By: #### 7 600, [id number] #### [facility] [address], [address] [place] [address] Auto Overhauler: Mike Roach MD Potassium [Moles/Vol] 4.3 mmol/L Normal 3.5-5.[address] [facility] Comment on above: Performed By: #### 7 600, [id number] #### [facility] [place] [address] Auto Overhauler: Mike Roach MD Protein [Mass/Vol] 6.4 g/dL Normal 6.1-8.1 [facility] Comment on above: Performed By: #### 7 600, [id number] #### [facility] of [address], [address] [place] [address] Auto Overhauler: Mike Roach MD Sodium [Moles/Vol] 144 mmol/L Normal 135-146 [facility] Comment on above: Performed By: #### 7 600, 20109 #### [facility] [address], [address] [place] [address] Auto Overhauler: Mike Roach MD Urea nitrogen [Mass/Vol] 15 mg/dL Normal 7-25 [facility] Comment on above: Performed By: #### 7 600, [id number] #### [facility] [address], [address] [place] [address] Auto Overhauler: Mike Roach MD LIPID PANEL, [facility] 08- 0 Cholesterol [Mass/Vol] 155 mg/dL Normal <200 [facility] Comment on above: Performed By: #### 7 600, 73984 #### [facility] of [address], [address] [place] [address] Auto Overhauler: Mike Roach MD Cholesterol in HDL [Mass/Vol] 61 mg/dL Normal > OR = 50 [facility] Comment on above: Performed By: #### 7 600, [id number] #### [facility] [address], [address] [place] [address] Auto Overhauler: Mike Roach MD Cholesterol in LDL [Mass/Vol] 71 mg/dL Normal [facility] Comment on above: Result Comment: Refe rence range: <100 Desirable range <100 mg/dL for primary prevention; <70 mg/dL for patients with CHD or diabetic patients with > or = 2 CHD risk factors. LDL-C is now calculated using the Veronica calculation, which is a validated novel method providing better accuracy than the Friedewald equation in the estimation of LDL-C. Boby BARAJAS et al. SHERYL. 2013;310(19): 0286-1648 (http://education.Project Bionic.ZimpleMoney/faq/PBP569) Performed By: #### 7 600, 16050 #### [facility] of [address], [address] [place] [address] Auto Overhauler: Mike Roach MD Cholesterol.total/Chol esterol in HDL [Mass ratio] 2.5 {ratio} Normal <5.0 [facility] Comment on above: Performed By: #### 7 600, 15193 #### [facility] [address], [address] [place] [address] Auto Overhauler: Mike Roach MD NON HDL CHOLESTEROL 94 mg/dL (calc) Normal <130 [facility] Comment on above: Result Comment: For patients with diabetes plus 1 major ASCVD risk factor, treating to a non-HDL-C goal of <100 mg/dL (LDL-C of <70 mg/dL) is considered a therapeutic option. Performed By: #### 7 600, 08408 #### [facility] [address], [address] [place] [address] Auto Overhauler: Mike Roach MD Triglyceride [Mass/Vol] 157 mg/dL High <150 [facility] Comment on above: Performed By: #### 7 600, 09426 #### [facility] [place] [address] Auto Overhauler: Mike Roach MD No Panel Informationon 12-11 155 mg/dL Normal Health: [facility] 61 mg/dL Normal Health: [facility] 157 mg/dL Abnormal [facility] 71 Normal [facility] 2.5 Normal Health: [facility] 94 Normal Health: [facility] 150 mg/dL Abnormal 65 - 99 mg/dL [facility] 15 mg/dL Normal 7 - 25 mg/dL [facility] 0.67 mg/dL Normal 0.60 - 1.00 mg/dL [facility] 92 Normal [facility] SEE NOTE: Normal 6 - 22 [facility] 144 mmol/L Normal 135 - 146 mmol/L [facility] 4.3 mmol/L Normal 3.5 - 5.3 mmol/L [facility] 109 mmol/L Normal 98 - 110 mmol/L [facility] 25 mmol/L Normal 20 - 32 mmol/L [facility] 9.4 mg/dL Normal 8.6 - 10.4 mg/dL [facility] 6.4 g/dL Normal 6.1 - 8.1 g/dL [facility] 4.4 g/dL Normal 3.6 - 5.1 g/dL [facility] 2.0 Normal 1.9 - 3.7 [facility] 2.2 Normal 1.0 - 2.5 [facility] 0.4 mg/dL Normal 0.2 - 1.2 mg/dL [facility] 166 U/L Abnormal 37 - 153 U/L [facility] 17 U/L Normal 10 - 35 U/L [facility] 16 U/L Normal 6 - 29 U/L [facility] CBC AND ELECTRONIC DIFFon Abs Baso Auto < Normal 0.00-0.15 [facility] Comment on above: Performed By: #### L [id number] #### [facility] (DEFAULT) [address] [place] [address] Basophils/100 WBC (Bld) 0.4 % Normal [facility] Comment on above: Performed By: #### L [id number] #### [facility] (DEFAULT) [address] [address] DIFF STATUS Electronic Differential Normal [facility] Comment on above: Performed By: #### L [id number] #### [facility] (DEFAULT) [address] [place] [address] Eosinophils (Bld) [#/Vol] 0.11 10*3/uL Normal 0.00-0.42 [facility] Comment on above: Performed By: #### L [id number] #### [facility] (DEFAULT) [address] [address] Eosinophils/100 WBC (Bld) 2.0 % Normal [facility] Comment on above: Performed By: #### L [id number] #### [facility] (DEFAULT) [address] [address] Hematocrit (Bld) [Volume fraction] 34.9 % Normal 34.9-44.3 [facility] Comment on above: Performed By: #### L [id number] #### [facility] (DEFAULT) [address] [address] Hemoglobin (Bld) [Mass/Vol] 11.1 g/dL Low 11.4-15.2 [facility] Comment on above: Performed By: #### L [id number] #### [facility] (DEFAULT) [address] [address] Immature Grans % 0.4 % Normal [facility] Comment on above: Performed By: #### L [id number] #### [facility] (DEFAULT) [address] [address] Immature Grans Absolute < Normal <=0.08 [facility] Comment on above: Performed By: #### L [id number] #### [facility] (DEFAULT) [address] [address] Lymphocytes (Bld) [#/Vol] 0.79 10*3/uL Low 1.16-3.51 [facility] Comment on above: Performed By: #### L [id number] #### [facility] (DEFAULT) [address] [address] Lymphocytes/100 WBC (Bld) 14.4 % Normal [facility] Comment on above: Performed By: #### L [id number] #### [facility] (DEFAULT) [address] [address] MCV (RBC) [Entitic vol] 98.6 fL High 79.6-97.7 [facility] Comment on above: Performed By: #### L [id number] #### [facility] (DEFAULT) [address] [address] Mean Cell Hgb 31.4 pg Normal 25.9-33.9 [facility] Comment on above: Performed By: #### L [id number] #### [facility] (DEFAULT) [address] [address] Mean Cell Hgb Conc 31.8 g/dL Normal 31.4-35.9 [facility] Comment on above: Performed By: #### L [id number] #### [facility] (DEFAULT) [address] [address] Monocytes (Bld) [#/Vol] 0.29 10*3/uL Normal 0.22-0.87 [facility] Comment on above: Performed By: #### L [id number] #### [facility] (DEFAULT) [address] [address] Monocytes/100 WBC (Bld) 5.3 % Normal [facility] Comment on above: Performed By: #### L [id number] #### [facility] (DEFAULT) [address] [address] Nucleated RBC 0.0 /100 WBC Normal <=0.2 [facility] Comment on above: Performed By: #### L [id number] #### [facility] (DEFAULT) [address] [address] Platelet mean volume (Bld) [Entitic vol] 12.0 fL Normal 8.5-12.2 [facility] Comment on above: Performed By: #### L [id number] #### [facility] (DEFAULT) [address] [place] [address] Platelets (Bld) [#/Vol] 191 10*3/uL Normal 150-393 [facility] Comment on above: Performed By: #### L [id number] #### [facility] (DEFAULT) [address] [place] [address] RBC (Bld) [#/Vol] 3.54 10*6/uL Low 3.91-5.04 [facility] Comment on above: Performed By: #### L [id number] #### [facility] (DEFAULT) [address] [place] [address] RBC Distribution 13.2 % Normal 10.8-14.9 [facility] Comment on above: Performed By: #### L [id number] #### [facility] (DEFAULT) [address] [place] [address] Segs + Bands Auto 77.5 % Normal [facility] Comment on above: Performed By: #### L [id number] #### [facility] (DEFAULT) [address] [place] [address] Segs + Bands,Absolute Auto 4.26 K/uL Normal 1.64-7.28 [facility] Comment on above: Performed By: #### L [id number] #### [facility] (DEFAULT) [address] [place] [address] WBC (Bld) [#/Vol] 5.49 10*3/uL Normal 3.99-11.19 [facility] Comment on above: Performed By: #### L [id number] #### [facility] (DEFAULT) [address] [place] [address] CHEM 7 (LYTES,BUN,CREA,GLUC) on 06-05-2022 Anion gap [Moles/Vol] 13 mmol/L Normal 7-17 [facility] Comment on above: Performed By: #### C HM7 #### [facility] (DEFAULT) [address] [place] [address] 55982 Chloride [Moles/Vol] 103 mmol/L Normal 98-108 [facility] Comment on above: Performed By: #### C HM7 #### [facility] (DEFAULT) [address] [place] [address] 97535 CO2 [Moles/Vol] 24 mmol/L Normal 21-31 [facility] Comment on above: Performed By: #### C HM7 #### [facility] (DEFAULT) [address] [place] [address] 71044 Creatinine [Mass/Vol] 0.77 mg/dL Normal 0.50-1.20 [facility] Comment on above: Performed By: #### C HM7 #### [facility] (DEFAULT) [address] [place] [address] 55723 GFR/1.73 sq M.predicted among non-blacks MDRD (S/P/Bld) [Vol rate/Area] 81 mL/min/{1.73_m2} Normal >=60 [facility] Comment on above: Result Comment: Repo rted eGFR is based on the CKD-EPI 2020 equation using creatinine, age, and sex. Performed By: #### C HM7 #### [facility] (DEFAULT) [address] [place] [address] 32787 Glucose [Mass/Vol] 81 mg/dL Normal 70-99 [facility] Comment on above: Performed By: #### C HM7 #### [facility] (DEFAULT) [address] [address] Osmolality [Osmolality] 287 mosm/kg Normal 278-305 [facility] Comment on above: Performed By: #### C HM7 #### [facility] (DEFAULT) [address] [place] [address] 24746 Potassium [Moles/Vol] 4.5 mmol/L Normal 3.5-5.0 [facility] Comment on above: Performed By: #### C HM7 #### [facility] (DEFAULT) [address] [place] [address] 33685 Sodium [Moles/Vol] 135 mmol/L Normal 135-145 [facility] Comment on above: Performed By: #### C HM7 #### [facility] (DEFAULT) [address] [place] [address] 10103 Urea nitrogen [Mass/Vol] 22 mg/dL Normal 7-25 [facility] Comment on above: Performed By: #### C HM7 #### [facility] (DEFAULT) [address] [place] [address] 79270 Urea nitrogen/Creatinine [Mass ratio] 29 mg/mg Normal [facility] Comment on above: Performed By: #### C HM7 #### [facility] (DEFAULT) [address] [place] [address]29 PROTIME-INRon 06-05-2022 INR Coag (PPP) [Relative time] 0.9 {INR} Normal 0.9-1.1 [facility] Comment on above: Performed By: #### P TI #### [facility] (DEFAULT) [address] [place] [address] 44655 PT Coag (PPP) [Time] 12.4 s Normal 11.9-14.2 [facility] Comment on above: Performed By: #### P TI #### [facility] (DEFAULT) [address] [place] [address] 35686 PTT W/MIXING STUDY PERF ONLY on 06-05-2022 aPTT Coag (Bld) [Time] 29.4 s Normal 24.0-34.3 [facility] Comment on above: Performed By: #### L [id number] #### [facility] (DEFAULT) [address] [place] [address] 02897 PTT Mixing Study With Normal Plasma Not Indicated Normal [facility] Comment on above: Performed By: #### L [id number] #### [facility] (DEFAULT) [address] [address] SCREEN: MRSA/MSSAon 06-05-19 23 Methicillin Resistant S. Aureus By Pcr Negative Normal Negative [facility] Comment on above: Order Comment: This test was performed using a real time PCR assay. Results should be interpreted in conjunction with other clinical and laboratory findings. A positive result does not necessarily indicate the presence of viable organism. This test should not be used as a test of cure. For E-swab specimens, this test was developed and its performance characteristics determined by the Clinical Microbiology Laboratory at [facility]. It has not been cleared or approved by the FDA.The laboratory is regulated under CLIA as qualified to perform high-complexity testing. This test is used for clinical purposes. It should not be regarded as investigational or for research. Performed By: #### S CRSB #### [facility] (DEFAULT) [address] [address] Staphylococcus Aureus By Pcr Negative Normal Negative [facility] Comment on above: Order Comment: This test was performed using a real time PCR assay. Results should be interpreted in conjunction with other clinical and laboratory findings. A positive result does not necessarily indicate the presence of viable organism. This test should not be used as a test of cure. For E-swab specimens, this test was developed and its performance characteristics determined by the Clinical Microbiology Laboratory at [facility]. It has not been cleared or approved by the FDA.The laboratory is regulated under CLIA as qualified to perform high-complexity testing. This test is used for clinical purposes. It should not be regarded as investigational or for research. Performed By: #### S CRSB #### [facility] (DEFAULT) [address] [address] TYPE AND SCREEN - PREADMISSI ONon 06-05-2022 ABO/RH(D) TYPE Positive Normal [facility] Comment on above: Performed By: #### X MPO #### [facility] (DEFAULT) [address] [address] URINALYSIS REFLEX TO CULTURE PERFORMABLEon 06-05-2022 Appearance (U) Clear Normal Clear [facility] Comment on above: Performed By: #### U [id number] #### [facility] (DEFAULT) [address] [place] [address] Bacteria ABSENT Normal ABSENT [facility] Comment on above: Performed By: #### U [id number] #### [facility] (DEFAULT) [address] [place] [address] 18821 Blood Urine Negative Normal Negative [facility] Comment on above: Performed By: #### U [id number] #### [facility] (DEFAULT) [address] [place] [address] 67993 Color (U) Yellow Normal Yellow [facility] Comment on above: Performed By: #### U [id number] #### [facility] (DEFAULT) [address] [place] [address] 82799 Glucose Ql (U) Negative Normal Negative [facility] Comment on above: Performed By: #### U [id number] #### [facility] (DEFAULT) [address] [place] [address] 58760 Hyaline casts LM Ql (Urine sed) Rare Abnormal (none) [facility] Comment on above: Performed By: #### U [id number] #### [facility] (DEFAULT) [address] [place] [address] 48490 Ketones Ql (U) 15 mg/dL = Small Abnormal Negative [facility] Comment on above: Performed By: #### U [id number] #### [facility] (DEFAULT) [address] [place] [address] 18508 Leukocyte esterase Test strip Ql (U) Negative Normal Negative [facility] Comment on above: Performed By: #### U [id number] #### [facility] (DEFAULT) [address] [place] [address] 01661 Nitrites Urine Negative Normal Negative [facility] Comment on above: Performed By: #### U [id number] #### [facility] (DEFAULT) [address] [place] [address] 95301 pH (U) 6.0 [pH] Normal 5.0-7.0 [facility] Comment on above: Performed By: #### U [id number] #### [facility] (DEFAULT) [address] [place] [address] 41900 Protein Urine Negative Normal Negative [facility] Comment on above: Performed By: #### U [id number] #### [facility] (DEFAULT) [address] [place] [address] 93265 RBC Urine 0-2 Normal 0-2 [facility] Comment on above: Performed By: #### U [id number] #### [facility] (DEFAULT) [address] [place] [address] 28757 Specific [place] Urine 1.025 Normal >1.00 1-<1.0 35 [facility] Comment on above: Performed By: #### U [id number] #### [facility] (DEFAULT) [address] [place] [address] 93539 Squamous/Epithelial Cells ABSENT Normal 1/hpf = 1+, 2-5/hpf = 2+, 0/hpf = 0+, ABSENT [facility] Comment on above: Performed By: #### U [id number] #### [facility] (DEFAULT) [address] [place] [address] 03650 Urobilinogen Urine 0.2 E.U./dL Normal 0.2 E.U/d L, 1.0 E.U/dL [facility] Comment on above: Performed By: #### U [id number] #### [facility] (DEFAULT) [address] [place] [address] 93503 WBC Urine 0-5 Normal 0-5 [facility] Comment on above: Performed By: #### U [id number] #### [facility] (DEFAULT) [address] [place] [address] 89285 XR CHEST PA AND LATERALon XR CHEST PA AND LATERAL EXAM: XR CHEST PA AND LATERAL, 06/05/2022 13:28 PM COMPARISON: No prior comparison. CLINICAL INDICATIONS: preop RELEVANT CLINICAL HISTORY: Z818:Preop exam for internal medicine M48.07:Spinal stenosis, lumbosacral region I10:Essential hypertension E78.5:Hyperlipidemia, unspecified hyperlipidemia type K21.9:Gastroesophageal reflux disease, unspecified whether esophagitis present FINDINGS: (Adequate technique) Implanted Devices: None Lungs: Left basilar volume loss. Left greater than right linear opacities. Left basilar atelectasis. Pleural Spaces: No pleural effusion. No pneumothorax. Mediastinum and Lynn: Normal Cardiac silhouette and great vessels: Normal heart size. Aortic calcifications. Chest Wall: Degenerative changes of thoracic spine. Prior sternotomy. Sternal wires are intact but malaligned with mild leftward deviation of the superiormost sternal wire and rightward deviation of the fourth and sixth sternal wires. IMPRESSION: Left basilar atelectasis. There are linear opacities bilaterally throughout the lungs which may be due to scar. Several sternal wires are malaligned. There are no prior comparisons for this study. Malalignment of sternal wires can indicate sternal dehiscence. Clinical correlation and/or correlation with prior imaging is recommended. I personally viewed and interpreted these images and I have reviewed and approved this report. Normal [facility] XR Chest PA and Lateralon IMPRESSION: Left basilar atelectasis. There are linear opacities bilaterally throughout the lungs which may be due to scar. Several sternal wires are malaligned. There are no prior comparisons for this study. Malalignment of sternal wires can indicate sternal dehiscence. Clinical correlation and/or correlation with prior imaging is recommended. I personally viewed and interpreted these images and I have reviewed and approved this report. OLOGY EXAM: XR CHEST PA AN D LATERAL, 06/05/2022 13:28 PM COMPARISON: No prior comparison. CLINICAL INDICATIONS: preop RELEVANT CLINICAL HISTORY: Z818:Preop exam for internal medicine M48.07:Spinal stenosis, lumbosacral region I10:Essential hypertension E78.5:Hyperlipidemia, unspecified hyperlipidemia type K21.9:Gastroesophageal reflux disease, unspecified whether esophagitis present FINDINGS: (Adequate technique) Implanted Devices: None Lungs: Left basilar volume loss. Left greater than right linear opacities. Left basilar atelectasis. Pleural Spaces: No pleural effusion. No pneumothorax. Mediastinum and Lynn: Normal Cardiac silhouette and great vessels: Normal heart size. Aortic calcifications. Chest Wall: Degenerative changes of thoracic spine. Prior sternotomy. Sternal wires are intact but malaligned with mild leftward deviation of the superiormost sternal wire and rightward deviation of the fourth and sixth sternal wires. RADIOLOGY Noa Alejandre M D - 06/05/2022 EXAM: XR CHEST PA AND LATERAL, 06/05/2022 13:28 PM COMPARISON: No prior comparison. CLINICAL INDICATIONS: preop RELEVANT CLINICAL HISTORY: Z01.818:Preop exam for internal medicine M48.07:Spinal stenosis, lumbosacral region I10:Essential hypertension E78.5:Hyperlipidemia, unspecified hyperlipidemia type K21.9:Gastroesophageal reflux disease, unspecified whether esophagitis present FINDINGS: (Adequate technique) Implanted Devices: None Lungs: Left basilar volume loss. Left greater than right linear opacities. Left basilar atelectasis. Pleural Spaces: No pleural effusion. No pneumothorax. Mediastinum and Lynn: Normal Cardiac silhouette and great vessels: Normal heart size. Aortic calcifications. Chest Wall: Degenerative changes of thoracic spine. Prior sternotomy. Sternal wires are intact but malaligned with mild leftward deviation of the superiormost sternal wire and rightward deviation of the fourth and sixth sternal wires. IMPRESSION IMPRESSION: Left basilar atelectasis. There are linear opacities bilaterally throughout the lungs which may be due to scar. Several sternal wires are malaligned. There are no prior comparisons for this study. Malalignment of sternal wires can indicate sternal dehiscence. Clinical correlation and/or correlation with prior imaging is recommended. I personally viewed and interpreted these images and I have reviewed and approved this report. [facility] Radiology Study observation (narrative) [facility] XR Chest PA and LateralOrder ed By: Noa Alejandre on 06-05-2022 [facility] Work Phone: Absolute lymphocyte countOrd ered By: Dr. Recinos on 04-23-2022 Lymphocytes Auto (Unsp spec) [#/Vol] 1.02 10*3/uL 0.83-4.51 [facility] Basophil percentageOrdered B y: Dr. Recinos on 04-23-2022 Basophils/100 WBC (Bld) 0.6 % 0-1 [facility] Bilirubin [Mass/Vol] 0.20 mg/dL 0.20-1.00 [facility] Comment on above: For patients on eltr ombopag therapy, use of Dimension [place] TBIL is not recommended. Chloride [Moles/Vol] 108 mmol/L 98-107 [facility] Eosinophils/100 WBC (Bld) 9.4 % 0-5 [facility] Glucose [Mass/Vol] 146 mg/dL 74-106 [facility] Comment on above: Fasting Glucose resu lt greater than or equal to 126 mg/dL suggests DIABETES MELLITUS per A.D.A. criteria. Neutrophils (Bld) [#/Vol] 4.3 10*3/uL 2.0-7.7 [facility] Neutrophils/100 WBC (Bld) 65.1 % 47-70 [facility] Potassium [Moles/Vol] 3.2 mmol/L 3.5-5.1 [facility] Protein [Mass/Vol] 6.7 g/dL 6.4-8.2 [facility] Sodium [Moles/Vol] 142 mmol/L 136-145 [facility] WBC (Bld) [#/Vol] 6.6 10*3/uL 4.4-11.0 [facility] Blood erythrocytes count (nu mber/volume)Ordered By: Dr. Recinos on 04-23-2022 RBC (Bld) [#/Vol] 4.04 10*6/uL 4.2-5.4 [facility] Blood hemoglobin measurement (mass/volume)Ordered By: Dr. Recinos on 04-23-2022 Hemoglobin (Bld) [Mass/Vol] 12.6 g/dL 12.0-15.0 [facility] Blood lymphocytes/100 leukoc ytesOrdered By: Dr. Recinos on 04-23-2022 Lymphocytes/100 WBC (Bld) 15.5 % 19-41 [facility] Blood monocytes/100 leukocyt esOrdered By: Dr. Recinos on 04-23-2022 Monocytes/100 WBC (Bld) 8.6 % 0-10 [facility] Blood platelet mean volumeOr dered By: Dr. Recinos on 04-23-2022 Platelet mean volume (Bld) [Entitic vol] 11.0 fL 6.2-12.0 [facility] Determination of erythrocyte mean corpuscular volume (MCV)Ordered By: Dr. Recinos on 04-23-2022 MCV (RBC) [Entitic vol] 98.3 fL 81-99 [facility] Hematocrit Auto (Bld) [Volum e fraction]Ordered By: Dr. Recinos on 04-23-2022 Hematocrit (Bld) [Volume fraction] 39.7 % 37-47 [facility] Laboratory - Chemistry and C hemistry - challengeOrdered By: Dr. Recinos on 04-23-2022 ALP [Catalytic activity/Vol] 266 U/L 45-117 [facility] ALT [Catalytic activity/Vol] 32 U/L 13-56 [facility] CO2 [Moles/Vol] 26.0 mmol/L 21.0-32.0 [facility] Globulin (S) [Mass/Vol] 4.0 g/dL 2.2-4.2 [facility] Natriuretic peptide B (Bld) [Mass/Vol] 65.7 pg/mL 0-100 [facility] Urea nitrogen/Creatinine [Mass ratio] 17.3 mg/mg 10-20 [facility] Laboratory - Hematology and Cell countsOrdered By: Dr. Recinos on 04-23-2022 Erythrocyte distribution width (RBC) [Entitic vol] 43.9 fL 35.1-43.9 [facility] Erythrocyte distribution width (RBC) [Ratio] 12.2 % 11.6-14.6 [facility] Immature granulocytes/100 WBC (Bld) 0.800 % 0.0-0.9 [facility] Comment on above: IG% - Immature Granu locytes (promyelocytes, myelocytes and metamyelocytes) > 1% indicates that a LEFT SHIFT is Present. MCH (RBC) [Entitic mass] 31.2 pg 27.0-32.0 [facility] Nucleated RBC/100 WBC (Bld) [Ratio] 0 % 0-5 [facility] MCHC Auto (RBC) [Mass/Vol]Or dered By: Dr. Recinos on 04-23-2022 MCHC (RBC) [Mass/Vol] 31.7 g/dL 32-36 [facility] No Panel InformationOrdered By: Dr. Recinos on 04-23-2022 D-Dimer Quantitative (PE/DVT) 0.47 FEU/ug/m 0.27-0.49 [facility] Comment on above: NORMAL D-Dimer level (<0.50) indicates no DVT or PE. Estimated Creatinine Clearance Calc 35.99 ml/min [facility] Estimated GFR (MDRD) Amer 97 mL/min >60 [facility] Comment on above: GFR Calc Estimated GFR (MDRD) Non-Af Amer 80 mL/min >60 [facility] Comment on above: Non- GFR Calc Troponin I High Sensitivity 7 pg/mL 3.0-54.0 [facility] Comment on above: Please Note: [place] t Units and Gender Specific Reference Ranges. For more information see Policy Stat Procedure [place] High Sensitivity Troponin (TNIH) and attachments. Platelets bldOrdered By: Dr. Recinos on 04-23-2022 Platelets (Bld) [#/Vol] 267 10*3/uL 150-450 [facility] Serum or plasma albumin steffen urement (mass/volume)Ordered By: Dr. Recinos on 04-23-2022 Albumin [Mass/Vol] 2.7 g/dL 3.2-5.0 [facility] Serum or plasma albumin/glob ulin mass ratioOrdered By: Dr. Recinos on 04-23-2022 Albumin/Globulin [Mass ratio] 0.7 {ratio} 0.9-2.4 [facility] Serum or plasma calcium steffen urement (mass/volume)Ordered By: Dr. Recinos on 04-23-2022 Calcium [Mass/Vol] 8.6 mg/dL 8.5-10.1 [facility] Serum or plasma creatinine m easurement (mass/volume)Ordered By: Dr. Recinos on 04-23-2022 Creatinine [Mass/Vol] 0.75 mg/dL 0.55-1.02 [facility] Comment on above: The validity of the calculated GFR & GFRAA in patients over 70 years has not been determined. Clinical correlation is essential. Serum or plasma urea nitroge n measurement (mass/volume)Ordered By: Dr. Recinos on 04-23-2022 Urea nitrogen [Mass/Vol] 13 mg/dL 7-18 [facility] Thin prep Papanicolaou smear with manual screeningOrdered By: Dr. Recinos on 04-23-2022 Thin prep Papanicolaou smear with manual screening 23 U/L 15-37 [facility] Thin prep Papanicolaou smear with manual screening 8 5-15 [facility] Laboratory - Microbiology an d Antimicrobial susceptibilityon 04-02-2022 FLUAV Ag IA Ql (Throat) Negative Normal [facility] [employer] FLUAV Ag IA Ql (Throat) Positive Abnormal [facility] No Panel Informationon 04-02 Negative Normal [facility] [employer] [employer] No Panel Informationon 10-26 133 mg/dL Normal [employer] [employer] 50 mg/dL Normal [employer] [employer] 198 mg/dL Abnormal [facility] [employer] 56 Normal [employer] 2.7 Normal [facility] [employer] 83 Normal [employer] [employer] 92 mg/dL Normal 65 - 99 mg/dL [employer] 32 mg/dL Abnormal 7 - 25 mg/dL [employer] [employer] 1.36 mg/dL Abnormal 0.60 - 0.93 mg/dL [employer] [employer] 39 Abnormal [employer] 45 Abnormal [employer] 24 Abnormal 6 - 22 [employer] 142 mmol/L Normal 135 - 146 mmol/L [facility] [employer] 4.6 mmol/L Normal 3.5 - 5.3 mmol/L [employer] 109 mmol/L Normal 98 - 110 mmol/L [employer] 25 mmol/L Normal 20 - 32 mmol/L [employer] 8.8 mg/dL Normal 8.6 - 10.4 mg/dL [employer] 6.1 g/dL Normal 6.1 - 8.1 g/dL [employer] 4.1 g/dL Normal 3.6 - 5.1 g/dL [employer] 2.0 Normal 1.9 - 3.7 [employer] 2.1 Normal 1.0 - 2.5 [employer] 0.4 mg/dL Normal 0.2 - 1.2 mg/dL [employer] 556 U/L Abnormal 37 - 153 U/L [employer] 29 U/L Normal 10 - 35 U/L [employer] 83 U/L Abnormal 6 - 29 U/L [employer] Basophil percentageon 2021 Creatinine [Mass/Vol] 0.8 mg/dL 0.55-1.02 [facility] Work Phone: No Panel Informationon 08-14 Bedside Estimated GFR (eGFR) > 60.0000 mL/min >60 [facility] Work Phone: No Panel Informationon 06-28 168 mg/dL Abnormal 65 - 99 mg/dL [employer] 41 mg/dL Abnormal 7 - 25 mg/dL [employer] 1.23 mg/dL Abnormal 0.60 - 0.93 mg/dL [employer] 43 Abnormal [employer] 50 Abnormal [employer] 33 Abnormal 6 - 22 [employer] 137 mmol/L Normal 135 - 146 mmol/L [employer] [place] 4.2 mmol/L Normal 3.5 - 5.3 mmol/L [employer] 104 mmol/L Normal 98 - 110 mmol/L [employer] 20 mmol/L Normal 20 - 32 mmol/L [employer] 8.7 mg/dL Normal 8.6 - 10.4 mg/dL [employer] Basophil percentageon 2021 Chloride [Moles/Vol] 104 mmol/L 98-107 [facility] Work Phone: Glucose [Mass/Vol] 131 mg/dL 74-106 [facility] Work Phone: Comment on above: Fasting Glucose resu lt greater than or equal to 126 mg/dL suggests DIABETES MELLITUS per A.D.A. criteria. Potassium [Moles/Vol] 2.8 mmol/L 3.5-5.1 [facility] Work Phone: Sodium [Moles/Vol] 140 mmol/L 136-145 [facility] Work Phone: Laboratory - Chemistry and C hemistry - challengeon 06-14-2021 CO2 [Moles/Vol] 26.0 mmol/L 21.0-32.0 [facility] Work Phone: Urea nitrogen/Creatinine [Mass ratio] 23.3 mg/mg 10-20 [facility] Work Phone: No Panel Informationon 06-14 Estimated Creatinine Clearance Calc 40.58 ml/min [facility] Work Phone: Estimated GFR (MDRD) Amer 79 mL/min >60 [facility] Work Phone: Comment on above: GFR Calc Estimated GFR (MDRD) Non-Af Amer 65 mL/min >60 [facility] Work Phone: Comment on above: Non- GFR Calc Serum or plasma calcium steffen urement (mass/volume)on 06-14-2021 Calcium [Mass/Vol] 8.3 mg/dL 8.5-10.1 [facility] Work Phone: Serum or plasma creatinine m easurement (mass/volume)on 06-14-2021 Creatinine [Mass/Vol] 0.90 mg/dL 0.55-1.02 [facility] Work Phone: Comment on above: The validity of the calculated GFR & GFRAA in patients over 70 years has not been determined. Clinical correlation is essential. Serum or plasma urea nitroge n measurement (mass/volume)on 06-14-2021 Urea nitrogen [Mass/Vol] 21 mg/dL 7-18 [facility] Work Phone: Thin prep Papanicolaou smear with manual screeningon 06-14-2021 Thin prep Papanicolaou smear with manual screening 10 5-15 [facility] Work Phone: [phone] Absolute lymphocyte counton 06-13-2021 Lymphocytes Auto (Unsp spec) [#/Vol] 0.45 10*3/uL 0.83-4.51 [facility] Work Phone: [phone] Basophil percentageon 2021 Basophils/100 WBC (Bld) 0.3 % 0-1 [facility] Work Phone: [phone] Bilirubin [Mass/Vol] 0.50 mg/dL 0.20-1.00 [facility] Work Phone: Comment on above: For patients on eltr ombopag therapy, use of Dimension Trent TBIL is not recommended. Eosinophils/100 WBC (Bld) 0.2 % 0-5 [facility] Work Phone: [phone] Neutrophils (Bld) [#/Vol] 5.6 10*3/uL 2.0-7.7 [facility] Work Phone: [phone] Neutrophils/100 WBC (Bld) 89.6 % 47-70 [facility] Work Phone: [phone] Protein [Mass/Vol] 7.4 g/dL 6.4-8.2 [facility] Work Phone: [phone] WBC (Bld) [#/Vol] 6.3 10*3/uL 4.4-11.0 [facility] Work Phone: [phone] Blood erythrocytes count (nu mber/volume)on 06-13-2021 RBC (Bld) [#/Vol] 4.72 10*6/uL 4.2-5.4 [facility] Work Phone: [phone] Blood hemoglobin measurement (mass/volume)on 06-13-2021 Hemoglobin (Bld) [Mass/Vol] 15.2 g/dL 12.0-15.0 [facility] Work Phone: [phone] Blood lymphocytes/100 leukoc yteson 06-13-2021 Lymphocytes/100 WBC (Bld) 7.2 % 19-41 [facility] Work Phone: [phone] Blood monocytes/100 leukocyt eson 06-13-2021 Monocytes/100 WBC (Bld) 2.4 % 0-10 [facility] Work Phone: [phone] Blood platelet mean volumeon 06-13-2021 Platelet mean volume (Bld) [Entitic vol] 12.1 fL 6.2-12.0 [facility] Work Phone: [phone] Determination of erythrocyte mean corpuscular volume (MCV)on 06-13-2021 MCV (RBC) [Entitic vol] 95.3 fL 81-99 [facility] Work Phone: Hematocrit Auto (Bld) [Volum e fraction]on 06-13-2021 Hematocrit (Bld) [Volume fraction] 45.0 % 37-47 [facility] Work Phone: [phone] Laboratory - Chemistry and C hemistry - challengeon 06-13-2021 ALP [Catalytic activity/Vol] 232 U/L 45-117 [facility] Work Phone: [phone] ALT [Catalytic activity/Vol] 23 U/L 13-56 [facility] Work Phone: [phone] Globulin (S) [Mass/Vol] 3.8 g/dL 2.2-4.2 [facility] Work Phone: [phone] Laboratory - Hematology and Cell countson 06-13-2021 Erythrocyte distribution width (RBC) [Entitic vol] 48.7 fL 35.1-43.9 [facility] Work Phone: [phone] Erythrocyte distribution width (RBC) [Ratio] 13.8 % 11.6-14.6 [facility] Work Phone: [phone] Immature granulocytes/100 WBC (Bld) 0.300 % 0.0-0.9 [facility] Work Phone: [phone] Comment on above: IG% - Immature Granu locytes (promyelocytes, myelocytes and metamyelocytes) > 1% indicates that a LEFT SHIFT is Present. MCH (RBC) [Entitic mass] 32.2 pg 27.0-32.0 [facility] Work Phone: [phone] Nucleated RBC/100 WBC (Bld) [Ratio] 0 % 0-5 [facility] Work Phone: [phone] MCHC Auto (RBC) [Mass/Vol]on 06-13-2021 MCHC (RBC) [Mass/Vol] 33.8 g/dL 32-36 [facility] Work Phone: [phone] Panel Informationon 06-13 Troponin I High Sensitivity 15 pg/mL 3.0-54.0 [facility] Work Phone: [phone] Comment on above: Please Note: [place] t Units and Gender Specific Reference Ranges. For more information see Policy Stat Procedure Trent High Sensitivity Troponin (TNIH) and attachments. Platelets bldon 06-13-2021 Platelets (Bld) [#/Vol] 273 10*3/uL 150-450 [facility] Work Phone: Serum or plasma albumin steffen urement (mass/volume)on 06-13-2021 Albumin [Mass/Vol] 3.6 g/dL 3.2-5.0 [facility] Work Phone: Serum or plasma albumin/glob ulin mass ratioon 06-13-2021 Albumin/Globulin [Mass ratio] 0.9 {ratio} 0.9-2.4 [facility] Work Phone: Thin prep Papanicolaou smear with manual screeningon 06-13-2021 Thin prep Papanicolaou smear with manual screening 14 U/L 15-37 [facility] Work Phone: Basophil percentageon 2021 Basophil percentage 0 SEEN /hpf [facility] Work Phone: Lactate [Moles/Vol] 1.0 mmol/L 0.4-2.0 [facility] Work Phone: Bilirubin Test strip Ql (U)o n 06-12-2021 Bilirubin Ql (U) Negative Negative [facility] Work Phone: Culture, urineon 06-12-2021 Bacteria identified Cx Nom (U) Mixed Gram Pos & Gram Neg Org [facility] Work Phone: Ketones Test strip Ql (U)on 06-12-2021 Ketones Ql (U) Negative Negative [facility] Work Phone: Laboratory - Chemistry and C hemistry - challengeon 06-12-2021 Magnesium [Mass/Vol] 1.8 mg/dL [facility] Work Phone: Comment on above: Performed at: [facility] [address] [id number] Director: Parish Mccall PhD, Phone: [phone] Natriuretic peptide B (Bld) [Mass/Vol] 884.7 pg/mL 0-100 [facility] Work Phone: [phone] Laboratory - Hematology and Cell countson 06-12-2021 Hemoglobin (Bld) [Mass/Vol] 13.0 g/dL Normal 11.5 - 14.2 g/dL [facility] Laboratory - Microbiology an d Antimicrobial susceptibilityon 06-12-2021 SARS-CoV-2 (COVID-19) RNA JAYLIN+probe Ql (Unsp spec) Not detected Not Detect [facility] Work Phone: Comment on above: Normal Reference Ran ge: Not DetectedMethod:(RT-PCR) real-time reverse transcriptase PCRLuminex Massive Analytic Instrument*The Food and Drug Administration (FDA) has issued an Emergency Use Authorization (EAU) for the Massive Analytic SARS-CoV-2 Assay for the rapid detection of the virus that causes COVID-19. This test has been validated, but the FDAs independent review of this validation is pending.*Negative results do not preclude infection and should not be used as the sole basis for treatment or patient management. Optimum specimen types and timing for peak viral levels during infections caused by SARS-CoV-2 have not been determined. Collection of multiple specimens from the same patient may be necessary to detect the virus. The possibility of a false negative result should be considered if the patient has clinical presentation or has had recent exposure. Bacteria identified Cx Nom (Bld) No growth in 5 days. [facility] Work Phone: [phone] Mucus LM Ql (Urine sed)on Mucus Ql (Urine sed) 0 SEEN /hpf [facility] Work Phone: [phone] Nitrite Test strip Ql (U)on 06-12-2021 Nitrite Ql (U) Negative Negative [facility] Work Phone: [phone] No Panel Informationon 06-12 Respiratory Panel (PCR) [facility] Work Phone: [phone] D-Dimer Quantitative (PE/DVT) 0.80 FEU/ug/m 0.27-0.49 [facility] Work Phone: Comment on above: CRITICAL VALUE VERIF IED. CALLED TO ELLY NAVARRETE RN ED06/12/21 4831 Krishan Duran.RESULTS READ BACK BY SAME . D-Dimer ELEVATED (>0.49): Additional studies and clinicalassessments are indicated to conclude diagnosis of:Deep Vein Thrombosis (DVT) or Pulmonary Embolism (PE) Protein Test strip Ql (U)on 06-12-2021 Protein Ql (U) Negative Negative [facility] Work Phone: Serum or plasma C reactive p rotein measurement (mass/volume)on 06-12-2021 CRP [Mass/Vol] 14.40 mg/L 0.0-3.0 [facility] Work Phone: Comment on above: C-Reactive Protein ( CRP) provides useful information for thediagnosis, therapy and monitoring of inflammatory processesand associated diseases. For the evaluation of Relative Riskfor Cardiovascular Disease, a High Sensitivity CRP (HSCRP)should be ordered. Serum or plasma ferritin mark surement (mass/volume)on 06-12-2021 Ferritin [Mass/Vol] 42 ng/mL 8-252 [facility] Work Phone: Serum procalcitonin measurem enton 06-12-2021 Procalcitonin [Mass/Vol] 0.05 ng/mL 0.00-0.09 [facility] Work Phone: Comment on above: A procalcitonin (PCT ) level above 2.0 ng/mL on the first day of ICU admission is associated with a high risk for progression to severe sepsis and/or septic shock. A PCT level below 0.5 ng/mL on the first day of ICU admission is associated with a low risk for progression to severe and/or septic shock. Note: Concentrations <0.5 ng/mL do not exclude an infection on account of localized infections (without systemic signs) which can be associated with such low concentrations, or a systemic infection in its initial stages (<6 hours). Furthermore, increased procalcitonin can occur without infection. PCT concentrations between 0.5 and 2.0 ng/mL should be interpreted taking into account the patient's history. It is recommended to retest PCT within 6-24 hours if any concentrations <2 ng/mL are obtained. Squamous epithelial cells de tection in urine sediment by light microscopyon 06-12-2021 Epithelial cells.squamous LM Ql (Urine sed) 0 SEEN /hpf [facility] Work Phone: Thin prep Papanicolaou smear with manual screeningon 06-12-2021 Thin prep Papanicolaou smear with manual screening 281 U/L 84-246 [facility] Work Phone: Urine blood detectionon RBC Ql (U) Negative Negative [facility] Work Phone: RBC Ql (U) 0 SEEN /hpf [facility] Work Phone: Urine clarityon 06-12-2021 Clarity (U) Clear Clear [facility] Work Phone: Urine color determinationon 06-12-2021 Color (U) Yellow Yellow [facility] Work Phone: Urine glucose detectionon Glucose Ql (U) Normal mg/dl Normal [facility] Work Phone: Urine leukocyte esterase det ection by dipstickon 06-12-2021 Leukocyte esterase Test strip Ql (U) Negative Negative [facility] Work Phone: Urine pHon 06-12-2021 pH (U) 8.0 [pH] [facility] Work Phone: Urine sediment bacteria coun t by microscopy (number/high power field)on 06-12-2021 Bacteria LM.HPF (Urine sed) [#/Area] 0 /[HPF] None Seen [facility] Work Phone: Urine specific gravity measu rementon 06-12-2021 Specific gravity (U) [Rel density] 1.015 [facility] Work Phone: Urobilinogen Auto test strip Ql (U)on 06-12-2021 Urobilinogen Ql (U) Normal mg/dl Normal [facility] Work Phone: Laboratory - Hematology and Cell countson 02-05-2021 Hemoglobin (Bld) [Mass/Vol] 9.5 g/dL Abnormal 11.5 - 14.2 g/dL [facility] Laboratory - Chemistry and C hemistry - challengeon 01-23-2021 Bilirubin Ql (U) Negative Normal [employer]. Ketones Ql (U) Negative Normal [facility] [employer]. pH (U) 6.0 [pH] Normal [employer]. Specific gravity (U) [Rel density] 1.025 Normal [employer]. Urobilinogen Qn (U) 0.2 mg/dL Normal [facility] [employer] [facility] [employer]. Laboratory - Hematology and Cell countson 01-23-2021 Hemoglobin Ql (U) Negative Normal [employer]. Laboratory - Specimen inform ationon 01-23-2021 Appearance (U) Clear Normal [facility]. Color (U) Dark Yellow Normal [employer]. Laboratory - Urinalysison Glucose Test strip (U) [Mass/Vol] Negative Normal [employer]. Leukocyte esterase Test strip Ql (U) Negative Normal [facility] [place]. Nitrite Ql (U) Negative Normal [employer]. Protein Ql (U) Negative Normal [employer]. Basic Metabolic Panelon 11-02 Anion gap [Moles/Vol] 8 mmol/L Normal 3-13 [facility] Comment on above: Performed By: #### M G3, HEMDF, BMP3M, PHOS3 #### [facility] [address] [place] [address] Calcium [Mass/Vol] 8.8 mg/dL Normal 8.4-10.4 [facility] Comment on above: Performed By: #### M G3, HEMDF, BMP3M, PHOS3 #### [facility] [address] [place] [address] CO2 [Moles/Vol] 25 mmol/L Normal 22-30 [facility] Comment on above: Performed By: #### M G3, HEMDF, BMP3M, PHOS3 #### [facility] [address], [place] Glucose [Mass/Vol] 135 mg/dL High 70-100 [facility] Comment on above: Performed By: #### M G3, HEMDF, BMP3M, PHOS3 #### [facility] [address], [place] Urea nitrogen [Mass/Vol] 13 mg/dL Normal 7-20 [facility] Comment on above: Performed By: #### M G3, HEMDF, BMP3M, PHOS3 #### [place] [address] [place], [place] Creatinine [Mass/Vol] 0.52 mg/dL Normal 0.52-1.25 [facility] Comment on above: Performed By: #### M G3, HEMDF, BMP3M, PHOS3 #### [place] [address] [address] [place], [place] eGFR OTHER > 90.0 Normal >60 [facility] Comment on above: Result Comment: KDIG O guidelines provide the following GFR categories: Stage GFR(ml/min/1.73 m2) Terms G1 >=90 Normal or high G2 60-89 Mildly decreased* G3a 45-59 Mildly to moderately decreased G3b 30-44 Moderately to severely decreased G4 15-29 Severely decreased G5 <15 Kidney failure *Relative to young adult level. In the absence of evidence of kidney damage, neither GFR category G1 nor G2 fulfill the criteria for CKD. The CKD-EPI equation is validated in individuals 18 years of age and older. Currently the best equation for estimating glomerular filtration rate (GFR) from serum creatinine in children is the Bedside Morales equation. It is less accurate in patients with extremes of muscle mass, restriction of dietary protein, ingestion of creatine, extra-renal metabolism of creatinine, or treatment with medications that affect renal tubular creatinine secretion. Performed By: #### M G3, HEMDF, BMP3M, PHOS3 #### [place] [address] [address] [place], [place] GFR/1.73 sq M.predicted among blacks MDRD (S/P/Bld) [Vol rate/Area] mL/min/{1.73_m2} Normal >60 [facility] Comment on above: Performed By: #### M G3, HEMDF, BMP3M, PHOS3 #### [facility] [address] [place] [address] Potassium [Moles/Vol] 4.0 mmol/L Normal 3.5-5.1 [facility] Comment on above: Performed By: #### M G3, HEMDF, BMP3M, PHOS3 #### [facility] [address] [place] [address] Sodium [Moles/Vol] 138 mmol/L Normal 135-145 [facility] Comment on above: Performed By: #### M G3, HEMDF, BMP3M, PHOS3 #### [facility] [address] [place] [address] Chloride [Moles/Vol] 106 mmol/L Normal 98-107 [facility] Comment on above: Performed By: #### M G3, HEMDF, BMP3M, PHOS3 #### [facility] [address] [place] [address] Basic Metabolic PanelOrdered By: Ronen Hein on 11-13-2020 Anion gap [Moles/Vol] 8 mmol/L 3 - 13 mmol/L [facility] Work Phone: Calcium [Mass/Vol] 8.8 mg/dL 8.4 - 10. 4 mg/dL [facility] Work Phone: Chloride [Moles/Vol] 106 mmol/L 98 - 10 7 mmol/L [facility] Work Phone: CO2 [Moles/Vol] 25 mmol/L 22 - 30 mmol/L [facility] Work Phone: Creatinine [Mass/Vol] 0.52 mg/dL 0.52 - 1.25 mg/dL [facility] Work Phone: EGFR IF NonAfrican Czech >90.0 >60 mL/min [facility] Work Phone: Comment on above: KDIGO guidelines pro vide the following GFR categories: Stage GFR(ml/min/1.73 m2) Terms G1 >=90 Normal or high G2 60-89 Mildly decreased* G3a 45-59 Mildly to moderately decreased G3b 30-44 Moderately to severely decreased G4 15-29 Severely decreased G5 <15 Kidney failure *Relative to young adult level. In the absence of evidence of kidney damage, neither GFR category G1 nor G2 fulfill the criteria for CKD. The CKD-EPI equation is validated in individuals 18 years of age and older. Currently the best equation for estimating glomerular filtration rate (GFR) from serum creatinine in children is the Bedside Morales equation. It is less accurate in patients with extremes of muscle mass, restriction of dietary protein, ingestion of creatine, extra-renal metabolism of creatinine, or treatment with medications that affect renal tubular creatinine secretion. GFR/1.73 sq M.predicted among blacks MDRD (S/P/Bld) [Vol rate/Area] mL/min/{1.73_m2} >60 mL/min [facility] Work Phone: [phone] Glucose [Mass/Vol] 135 mg/dL High 70 - 100 mg/dL [facility] Work Phone: [phone] Interpretation and review of laboratory results Abnormal [facility] Work Phone: [phone] Potassium [Moles/Vol] 4.0 mmol/L 3.5 - 5.1 mmol/L [facility] Work Phone: [phone] Sodium [Moles/Vol] 138 mmol/L 135 - 145 mmol/L [facility] Work Phone: [phone] Urea nitrogen (BldV) [Mass/Vol] 13 mg/dL 7 - 20 mg/dL [facility] Work Phone: [phone] CBCOrdered By: Ronen Hein on 11-13-2020 Hematocrit (Bld) [Volume fraction] 29.1 % Low 35.0 - 47.0 % [facility] Work Phone: [phone] Hemoglobin.gastrointes tinal spec 1 Ql (Stl) 9.7 g/dL Low 11.7 - 16.0 g/dL [facility] Work Phone: Interpretation and review of laboratory results Abnormal [facility] Work Phone: [phone] MCH (RBC) [Entitic mass] 28.2 pg 26.0 - 34.0 pg [facility] Work Phone: [phone] MCHC (RBC) [Mass/Vol] 33.2 % 32.0 - 36.0 % [facility] Work Phone: [phone] MCV (RBC) [Entitic vol] 84.9 fL 79.0 - 98.0 fL [facility] Work Phone: [phone] Platelet distribution width (Bld) [Ratio] 18.8 % High 11.5 - 14.5 % [facility] Work Phone: [phone] Platelet mean volume (Bld) [Entitic vol] 9.8 fL 7.4 - 10.4 fL [facility] Work Phone: [phone] Platelets (Bld) [#/Vol] 223 10*3/uL 140 - 440 10*3/uL [facility] Work Phone: [phone] RBC (Bld) [#/Vol] 3.43 10*6/uL Low 3.80 - 5.2 0 10*6/uL [facility] Work Phone: [phone] WBC (Bld) [#/Vol] 7.6 10*3/uL 3.6 - 10.7 10*3/uL [facility] Work Phone: [phone] Performed by [address] [address] [facility] Work Phone: [phone] [facility] Work Phone: [phone] CR Chest Portableon 11-14-19 21 CR Chest Portable [id number] ACCESSION EXAM DATE/TIME PROCEDURE ORDERING PROVIDER [id number] 11/13/2020 06:21 EDT CR Chest Portable DAWIT HEIN MATTHEW R. CPT code 82362 Reason For Exam (CR Chest Portable) Shortness of breath Report PORTABLE CHEST CLINICAL INDICATION: Dyspnea. COMPARISON: 11/12/2020. TECHNIQUE: A single frontal view of thorax was obtained and reviewed. IMPRESSION: 1. Lines/ tubes/ devices: Sternotomy wires and mediastinal clips. 2. Lungs and Pleura: Right hilar surgical clips suggest partial right lung resection. Persistent elevation of right hemidiaphragm. Minimal right basilar bronchiectasis is redemonstrated. Left midlung subsegmental atelectasis is identified. No consolidation or pleural effusion is evident. 3. Heart and mediastinum: Mild cardiomegaly, unchanged. 4. Bones: Thoracic degenerative spondylosis. Diffuse osteopenia. Report Dictated on Final Dictated: 11/13/2020 9:24 am Dictating Physician: MAXIMILIAN EDMONDSON DO, I Signed Date and Time: 11/13/2020 9:27 am Signed by: MAXIMILIAN EDMONDSON DO, I Transcribed Date and Time: 11/13/2020 9:24 Normal [facility] Hemogramon 11-13-2020 Erythrocyte distribution width (RBC) [Ratio] 18.8 % High 11.5-14.5 [facility] Comment on above: Performed By: #### M G3, HEMDF, BMP3M, PHOS3 #### [place] [address] [place], [place] Hematocrit (Bld) [Volume fraction] 29.1 % Low 35.0-47.0 [facility] Comment on above: Performed By: #### M G3, HEMDF, BMP3M, PHOS3 #### [place] [address] [place], [place] Hemoglobin (Bld) [Mass/Vol] 9.7 g/dL Low 11.7-16.0 [facility] Comment on above: Performed By: #### M G3, HEMDF, BMP3M, PHOS3 #### [place] [address] [place], [place] MCH (RBC) [Entitic mass] 28.2 pg Normal 26.0-34.0 [facility] Comment on above: Performed By: #### M G3, HEMDF, BMP3M, PHOS3 #### [address] MCHC 33.2 % Normal 32.0-36.0 [facility] Comment on above: Performed By: #### M G3, HEMDF, BMP3M, PHOS3 #### [place] [address] [place], [place] MCV (RBC) [Entitic vol] 84.9 fL Normal 79.0-98.0 [facility] Comment on above: Performed By: #### M G3, HEMDF, BMP3M, PHOS3 #### [facility] [address], [place] Platelet mean volume (Bld) [Entitic vol] 9.8 fL Normal 7.4-10.4 [facility] Comment on above: Performed By: #### M G3, HEMDF, BMP3M, PHOS3 #### [place] [address] [address] [place], [place] Platelets (Bld) [#/Vol] 223 10*3/uL Normal 140-440 [facility] Comment on above: Performed By: #### M G3, HEMDF, BMP3M, PHOS3 #### [place] [address] [address] [place], [place] RBC (Bld) [#/Vol] 3.43 10*6/uL Low 3.80-5.20 [facility] Comment on above: Performed By: #### M G3, HEMDF, BMP3M, PHOS3 #### [place] [address] [address] [place], [place] WBC (Bld) [#/Vol] 7.6 10*3/uL Normal 3.6-10.7 [facility] Comment on above: Performed By: #### M G3, HEMDF, BMP3M, PHOS3 #### [place] [address] [address], [place] Magnesiumon 11-13-2020 Magnesium [Mass/Vol] 2.0 mg/dL Normal 1.6-2.3 [facility] Comment on above: Performed By: #### B MP3M, TROPN, MG3, HEMDF, PHOS3 #### [place] [address] [address], [place] MagnesiumOrdered By: Ronen Hein on 11-13-2020 Magnesium [Mass/Vol] 2.0 mg/dL 1.6 - 2 .3 mg/dL [facility] Work Phone: No Panel InformationOrdered By: Ronen Hein on 11-13-2020 Test Performed by [facility], [address] [place] [id number] [facility] Work Phone: [facility] Work Phone: XR CHEST PORTABLEOrdered By: Ronen Hein on 11-13-2020 Patient Name: GENNY VARELA Diagnostic Radiology ACCESSION EXAM DATE/TIME PROCEDURE ORDERING PROVIDER [id number] 11/13/2020 06:21 EDT CR Chest Portable DAWIT HEIN MATTHEW R. CPT code 20497 Reason For Exam (CR Chest Portable) Shortness of breath Report PORTABLE CHEST CLINICAL INDICATION: Dyspnea. COMPARISON: 11/12/2020. TECHNIQUE: A single frontal view of thorax was obtained and reviewed. IMPRESSION: 1. Lines/ tubes/ devices: Sternotomy wires and mediastinal clips. 2. Lungs and Pleura: Right hilar surgical clips suggest partial right lung resection. Persistent elevation of right hemidiaphragm. Minimal right basilar bronchiectasis is redemonstrated. Left midlung subsegmental atelectasis is identified. No consolidation or pleural effusion is evident. 3. Heart and mediastinum: Mild cardiomegaly, unchanged. 4. Bones: Thoracic degenerative spondylosis. Diffuse osteopenia. Report Dictated on --- Final --- Dictated: 11/13/2020 9:24 am Dictating Physician: MAXIMILIAN EDMONDSON DO, I Signed Date and Time: 11/13/2020 9:27 am Signed by: MAXIMILIAN EDMONDSON DO, I Transcribed Date and Time: 11/13/2020 9:24 [facility] Work Phone: [facility] Incoming Radiology Results From [facility] - 11/13/2020 9:28 AM EDT Patient Name: GENNY VARELA Diagnostic Radiology ACCESSION EXAM DATE/TIME PROCEDURE ORDERING PROVIDER [id number] 11/13/2020 06:21 EDT CR Chest Portable DAWIT HEIN MATTHEW R. CPT code 19393 Reason For Exam (CR Chest Portable) Shortness of breath Report PORTABLE CHEST CLINICAL INDICATION: Dyspnea. COMPARISON: 11/12/2020. TECHNIQUE: A single frontal view of thorax was obtained and reviewed. IMPRESSION: 1. Lines/ tubes/ devices: Sternotomy wires and mediastinal clips. 2. Lungs and Pleura: Right hilar surgical clips suggest partial right lung resection. Persistent elevation of right hemidiaphragm. Minimal right basilar bronchiectasis is redemonstrated. Left midlung subsegmental atelectasis is identified. No consolidation or pleural effusion is evident. 3. Heart and mediastinum: Mild cardiomegaly, unchanged. 4. Bones: Thoracic degenerative spondylosis. Diffuse osteopenia. Report Dictated on --- Final --- Dictated: 11/13/2020 9:24 am Dictating Physician: MAXIMILIAN EDMONDSON DO, I Signed Date and Time: 11/13/2020 9:27 am Signed by: MAXIMILIAN EDMONDSON DO, I Transcribed Date and Time: 11/13/2020 9:24 [facility] Work Phone: [facility] Work Phone: Basic Metabolic Panelon 07- Anion gap [Moles/Vol] 6 mmol/L Normal 3-13 [facility] Comment on above: Performed By: #### B MP3M, TROPN, MG3, HEMDF, PHOS3 #### [facility] [address] [place] [address] Calcium [Mass/Vol] 8.0 mg/dL Low 8.4-10.4 [facility] Comment on above: Performed By: #### B MP3M, TROPN, MG3, HEMDF, PHOS3 #### [facility] [address] [place] [address] CO2 [Moles/Vol] 24 mmol/L Normal 22-30 [facility] Comment on above: Performed By: #### B MP3M, TROPN, MG3, HEMDF, PHOS3 #### [facility] [address] [place] [address] Glucose [Mass/Vol] 125 mg/dL High 70-100 [facility] Comment on above: Performed By: #### B MP3M, TROPN, MG3, HEMDF, PHOS3 #### [facility] [address] [place] [address] Urea nitrogen [Mass/Vol] 26 mg/dL High 7-20 [facility] Comment on above: Performed By: #### B MP3M, TROPN, MG3, HEMDF, PHOS3 #### [facility] [address] [place] [address] Creatinine [Mass/Vol] 0.67 mg/dL Normal 0.52-1.25 [facility] Comment on above: Performed By: #### B MP3M, TROPN, MG3, HEMDF, PHOS3 #### [facility] [address] [place] [address] GFR/1.73 sq M.predicted among blacks MDRD (S/P/Bld) [Vol rate/Area] mL/min/{1.73_m2} Normal >60 [facility] Comment on above: Performed By: #### B MP3M, TROPN, MG3, HEMDF, PHOS3 #### [facility] [address] [place] [address] GFR/1.73 sq M.predicted among non-blacks MDRD (S/P/Bld) [Vol rate/Area] 87.6 mL/min/{1.73_m2} Normal >60 [facility] Comment on above: Result Comment: KDIG O guidelines provide the following GFR categories: Stage GFR(ml/min/1.73 m2) Terms G1 >=90 Normal or high G2 60-89 Mildly decreased* G3a 45-59 Mildly to moderately decreased G3b 30-44 Moderately to severely decreased G4 15-29 Severely decreased G5 <15 Kidney failure *Relative to young adult level. In the absence of evidence of kidney damage, neither GFR category G1 nor G2 fulfill the criteria for CKD. The CKD-EPI equation is validated in individuals 18 years of age and older. Currently the best equation for estimating glomerular filtration rate (GFR) from serum creatinine in children is the Bedside Morales equation. It is less accurate in patients with extremes of muscle mass, restriction of dietary protein, ingestion of creatine, extra-renal metabolism of creatinine, or treatment with medications that affect renal tubular creatinine secretion. Performed By: #### B MP3M, TROPN, MG3, HEMDF, PHOS3 #### [place] [address], [place] Potassium [Moles/Vol] 3.8 mmol/L Normal 3.5-5.1 [facility] Comment on above: Performed By: #### B MP3M, TROPN, MG3, HEMDF, PHOS3 #### [place] [address], [place] Chloride [Moles/Vol] 109 mmol/L High 98-107 [facility] Comment on above: Performed By: #### B MP3M, TROPN, MG3, HEMDF, PHOS3 #### [place] [address], [place] Sodium [Moles/Vol] 139 mmol/L Normal 135-145 [facility] Comment on above: Performed By: #### B MP3M, TROPN, MG3, HEMDF, PHOS3 #### [place] [address], [place] Basic Metabolic PanelOrdered By: Ronen Hein on 11-12-2020 Anion gap [Moles/Vol] 6 mmol/L 3 - 13 mmol/L [facility] Work Phone: Calcium [Mass/Vol] 8.0 mg/dL Low 8.4 - 10. 4 mg/dL [facility] Work Phone: Chloride [Moles/Vol] 109 mmol/L High 98 - 10 7 mmol/L [facility] Work Phone: CO2 [Moles/Vol] 24 mmol/L 22 - 30 mmol/L [facility] Work Phone: Creatinine [Mass/Vol] 0.67 mg/dL 0.52 - 1.25 mg/dL [facility] Work Phone: EGFR IF NonAfrican Czech 87.6 mL/min >60 [facility] Work Phone: Comment on above: KDIGO guidelines pro vide the following GFR categories: Stage GFR(ml/min/1.73 m2) Terms G1 >=90 Normal or high G2 60-89 Mildly decreased* G3a 45-59 Mildly to moderately decreased G3b 30-44 Moderately to severely decreased G4 15-29 Severely decreased G5 <15 Kidney failure *Relative to young adult level. In the absence of evidence of kidney damage, neither GFR category G1 nor G2 fulfill the criteria for CKD. The CKD-EPI equation is validated in individuals 18 years of age and older. Currently the best equation for estimating glomerular filtration rate (GFR) from serum creatinine in children is the Bedside Morales equation. It is less accurate in patients with extremes of muscle mass, restriction of dietary protein, ingestion of creatine, extra-renal metabolism of creatinine, or treatment with medications that affect renal tubular creatinine secretion. GFR/1.73 sq M.predicted among blacks MDRD (S/P/Bld) [Vol rate/Area] mL/min/{1.73_m2} >60 mL/min [facility] Work Phone: [phone] Glucose [Mass/Vol] 125 mg/dL High 70 - 100 mg/dL [facility] Work Phone: [phone] Interpretation and review of laboratory results Abnormal [facility] Work Phone: [phone] Potassium [Moles/Vol] 3.8 mmol/L 3.5 - 5.1 mmol/L [facility] Work Phone: [phone] Sodium [Moles/Vol] 139 mmol/L 135 - 145 mmol/L [facility] Work Phone: [phone] Urea nitrogen (BldV) [Mass/Vol] 26 mg/dL High 7 - 20 mg/dL [facility] Work Phone: [phone] CBCOrdered By: Ronen Hein on 11-12-2020 Hematocrit (Bld) [Volume fraction] 28.4 % Low 35.0 - 47.0 % [facility] Work Phone: [phone] Hemoglobin.gastrointes tinal spec 1 Ql (Stl) 9.2 g/dL Low 11.7 - 16.0 g/dL [facility] Work Phone: [phone] Interpretation and review of laboratory results Abnormal [facility] Work Phone: [phone] MCH (RBC) [Entitic mass] 27.6 pg 26.0 - 34.0 pg [facility] Work Phone: MCHC (RBC) [Mass/Vol] 32.6 % 32.0 - 36.0 % [facility] Work Phone: [phone] MCV (RBC) [Entitic vol] 84.8 fL 79.0 - 98.0 fL [facility] Work Phone: [phone] Platelet distribution width (Bld) [Ratio] 19.1 % High 11.5 - 14.5 % [facility] Work Phone: [phone] Platelet mean volume (Bld) [Entitic vol] 10.5 fL High 7.4 - 10.4 fL [facility] Work Phone: [phone] Platelets (Bld) [#/Vol] 189 10*3/uL 140 - 440 10*3/uL [facility] Work Phone: [phone] RBC (Bld) [#/Vol] 3.34 10*6/uL Low 3.80 - 5.2 0 10*6/uL [facility] Work Phone: [phone] WBC (Bld) [#/Vol] 8.5 10*3/uL 3.6 - 10.7 10*3/uL [facility] Work Phone: [phone] CR Chest Portableon 11-13-19 21 CR Chest Portable Patient Name: GENNY VARELA Diagnostic Radiology ACCESSION EXAM DATE/TIME PROCEDURE ORDERING PROVIDER [id number] 11/12/2020 06:22 EDT CR Chest Portable DAWIT HEIN MATTHEW R. CPT code 33674 Reason For Exam (CR Chest Portable) Shortness of breath Report Portable chest 11/12/2020: Clinical Information: Shortness of breath. Findings: A single AP portable view of the chest was obtained at 521 hours. Comparison was made to the prior study prior day. The trachea is midline. The heart is not enlarged. There is haziness in the right lung base consistent with layering of a right pleural effusion. There is probably right basal atelectasis. There is minimal atelectasis in the left lung base. The basal chest tubes have been removed. No pneumothorax is identified on either side. The right jugular introducer sheath remains in place. Report Dictated on Final Dictated: 11/12/2020 8:41 am Dictating Physician: MD HERNANDEZ RISA Signed Date and Time: 11/12/2020 8:42 am Signed by: MD HERNANDEZ RISA Transcribed Date and Time: 11/12/2020 8:41 Normal [facility] Glucose,Bedsideon 11-12-2020 Glucose [Mass/Vol] 118 mg/dL High 70-100 [facility] Comment on above: Result Comment: Test performed by glucose meter. Results may be 10%-15% lower than serum/plasma values. (CLIA ID [id number]) Performed By: #### B MP3M, TROPN, MG3, HEMDF, PHOS3 #### [place] [address] [place], [place] Hemogramon 11-12-2020 Erythrocyte distribution width (RBC) [Ratio] 19.1 % High 11.5-14.5 [facility] Comment on above: Performed By: #### B MP3M, TROPN, MG3, HEMDF, PHOS3 #### [place] [address], [place] Hematocrit (Bld) [Volume fraction] 28.4 % Low 35.0-47.0 [facility] Comment on above: Performed By: #### B MP3M, TROPN, MG3, HEMDF, PHOS3 #### [place] [address] [place], [place] Hemoglobin (Bld) [Mass/Vol] 9.2 g/dL Low 11.7-16.0 [facility] Comment on above: Performed By: #### B MP3M, TROPN, MG3, HEMDF, PHOS3 #### [place] [address] [place], [place] MCH (RBC) [Entitic mass] 27.6 pg Normal 26.0-34.0 [facility] Comment on above: Performed By: #### B MP3M, TROPN, MG3, HEMDF, PHOS3 #### [place] [address] [place], [place] MCHC 32.6 % Normal 32.0-36.0 [facility] Comment on above: Performed By: #### B MP3M, TROPN, MG3, HEMDF, PHOS3 #### [place] [address] [place], [place] MCV (RBC) [Entitic vol] 84.8 fL Normal 79.0-98.0 [facility] Comment on above: Performed By: #### B MP3M, TROPN, MG3, HEMDF, PHOS3 #### [place] [address] [place], [place] Platelet mean volume (Bld) [Entitic vol] 10.5 fL High 7.4-10.4 [facility] Comment on above: Performed By: #### B MP3M, TROPN, MG3, HEMDF, PHOS3 #### [place] [address] [place], [place] Platelets (Bld) [#/Vol] 189 10*3/uL Normal 140-440 [facility] Comment on above: Performed By: #### B MP3M, TROPN, MG3, HEMDF, PHOS3 #### [place] [address] [place], [place] RBC (Bld) [#/Vol] 3.34 10*6/uL Low 3.80-5.20 [facility] Comment on above: Performed By: #### B MP3M, TROPN, MG3, HEMDF, PHOS3 #### [place] [address] [place], [place] WBC (Bld) [#/Vol] 8.5 10*3/uL Normal 3.6-10.7 [facility] Comment on above: Performed By: #### B MP3M, TROPN, MG3, HEMDF, PHOS3 #### [place] [address], [place] Magnesiumon 11-12-2020 Magnesium [Mass/Vol] 2.2 mg/dL Normal 1.6-2.3 [facility] Comment on above: Performed By: #### B MP3M, TROPN, MG3, HEMDF, PHOS3 #### [facility] [employer] [address] [address] MagnesiumOrdered By: Ronen Hein on 11-12-2020 Magnesium [Mass/Vol] 2.2 mg/dL 1.6 - 2 .3 mg/dL [facility] Work Phone: [phone] Panel InformationOrdered By: Ronen Hein on 11-12-2020 Test Performed by [facility], [address] [place] [id number] [place], [place] [address] Work Phone: [phone] [facility] Work Phone: [phone] Test Performed by [facility], [address] [place] [id number] [place], [place] [address] Work Phone: [phone] [facility] Work Phone: [phone] POCT GlucoseOrdered By: Zulma Mujica on 11-12-2020 Glucose [Mass/Vol] 118 mg/dL High 70 - 100 mg/dL [facility] Work Phone: [phone] Comment on above: Test performed by gl ucose meter. Results may be 10%-15% lower than serum/plasma values. (CLIA ID [id number]) Interpretation and review of laboratory results Abnormal [facility] Work Phone: [phone] Test Performed by [facility], [address] [place] [address] [facility] Work Phone: [phone] [facility] Work Phone: [phone] XR CHEST PORTABLEOrdered By: Ronen Hein on 11-12-2020 [id number]iology ACCESSION EXAM DATE/TIME PROCEDURE ORDERING PROVIDER [id number] 11/12/2020 06:22 EDT CR Chest Portable DAWIT HEIN MATTHEW R. CPT code 81140 Reason For Exam (CR Chest Portable) Shortness of breath Report Portable chest 11/12/2020: Clinical Information: Shortness of breath. Findings: A single AP portable view of the chest was obtained at 521 hours. Comparison was made to the prior study prior day. The trachea is midline. The heart is not enlarged. There is haziness in the right lung base consistent with layering of a right pleural effusion. There is probably right basal atelectasis. There is minimal atelectasis in the left lung base. The basal chest tubes have been removed. No pneumothorax is identified on either side. The right jugular introducer sheath remains in place. Report Dictated on --- Final --- Dictated: 11/12/2020 8:41 am Dictating Physician: MD HERNANDEZ RISA Signed Date and Time: 11/12/2020 8:42 am Signed by: MD HERNANDEZ RISA Transcribed Date and Time: 11/12/2020 8:41 [facility] Work Phone: [facility], [facility] Incoming Radiology Results From [facility] - 11/12/2020 8:44 AM EDT Patient Name: GENNY VARELA Diagnostic Radiology ACCESSION EXAM DATE/TIME PROCEDURE ORDERING PROVIDER [id number] 11/12/2020 06:22 EDT CR Chest Portable DAWIT HEIN MATTHEW R. CPT code 16057 Reason For Exam (CR Chest Portable) Shortness of breath Report Portable chest 11/12/2020: Clinical Information: Shortness of breath. Findings: A single AP portable view of the chest was obtained at 521 hours. Comparison was made to the prior study prior day. The trachea is midline. The heart is not enlarged. There is haziness in the right lung base consistent with layering of a right pleural effusion. There is probably right basal atelectasis. There is minimal atelectasis in the left lung base. The basal chest tubes have been removed. No pneumothorax is identified on either side. The right jugular introducer sheath remains in place. Report Dictated on --- Final --- Dictated: 11/12/2020 8:41 am Dictating Physician: MD HERNANDEZ RISA Signed Date and Time: 11/12/2020 8:42 am Signed by: MD HERNANDEZ RISA Transcribed Date and Time: 11/12/2020 8:41 [facility] Work Phone: [facility] Work Phone: Basic Metabolic Panelon 07-1 -2020 Anion gap [Moles/Vol] 6 mmol/L Normal 3-13 [facility] Comment on above: Performed By: #### M G3, HEMDF, BMP3M, PHOS3 #### [facility] [address] [place] [address] Calcium [Mass/Vol] 8.0 mg/dL Low 8.4-10.4 [facility] Comment on above: Performed By: #### M G3, HEMDF, BMP3M, PHOS3 #### [facility] [address] [place] [address] CO2 [Moles/Vol] 21 mmol/L Low 22-30 [facility] Comment on above: Performed By: #### M G3, HEMDF, BMP3M, PHOS3 #### [place] [address] [place] [address] Glucose [Mass/Vol] 138 mg/dL High 70-100 [facility] Comment on above: Performed By: #### M G3, HEMDF, BMP3M, PHOS3 #### [place] [address] [place] [address] Urea nitrogen [Mass/Vol] 27 mg/dL High 7-20 [facility] Comment on above: Performed By: #### M G3, HEMDF, BMP3M, PHOS3 #### [place] [address] [place] [address] Creatinine [Mass/Vol] 0.65 mg/dL Normal 0.52-1.25 [facility] Comment on above: Performed By: #### M G3, HEMDF, BMP3M, PHOS3 #### [facility] [address] [place] [address] GFR/1.73 sq M.predicted among blacks MDRD (S/P/Bld) [Vol rate/Area] mL/min/{1.73_m2} Normal >60 [facility] Comment on above: Performed By: #### M G3, HEMDF, BMP3M, PHOS3 #### [place] [address] [place] [address] GFR/1.73 sq M.predicted among non-blacks MDRD (S/P/Bld) [Vol rate/Area] 88.4 mL/min/{1.73_m2} Normal >60 [facility] Comment on above: Result Comment: KDIG O guidelines provide the following GFR categories: Stage GFR(ml/min/1.73 m2) Terms G1 >=90 Normal or high G2 60-89 Mildly decreased* G3a 45-59 Mildly to moderately decreased G3b 30-44 Moderately to severely decreased G4 15-29 Severely decreased G5 <15 Kidney failure *Relative to young adult level. In the absence of evidence of kidney damage, neither GFR category G1 nor G2 fulfill the criteria for CKD. The CKD-EPI equation is validated in individuals 18 years of age and older. Currently the best equation for estimating glomerular filtration rate (GFR) from serum creatinine in children is the Bedside Morales equation. It is less accurate in patients with extremes of muscle mass, restriction of dietary protein, ingestion of creatine, extra-renal metabolism of creatinine, or treatment with medications that affect renal tubular creatinine secretion. Performed By: #### M G3, HEMDF, BMP3M, PHOS3 #### [address] Chloride [Moles/Vol] 109 mmol/L High 98-107 [facility] Comment on above: Performed By: #### M G3, HEMDF, BMP3M, PHOS3 #### [place] [address] [place], [place] Potassium [Moles/Vol] 3.8 mmol/L Normal 3.5-5.1 [facility] Comment on above: Performed By: #### M G3, HEMDF, BMP3M, PHOS3 #### [facility] [address] [place], [place] Sodium [Moles/Vol] 136 mmol/L Normal 135-145 [facility] Comment on above: Performed By: #### M G3, HEMDF, BMP3M, PHOS3 #### [place] [address] [place] [address] Basic Metabolic PanelOrdered By: Ronen Hein on 11-11-2020 Anion gap [Moles/Vol] 6 mmol/L 3 - 13 mmol/L [facility] Work Phone: [phone] Calcium [Mass/Vol] 8.0 mg/dL Low 8.4 - 10. 4 mg/dL [facility] Work Phone: [phone] Chloride [Moles/Vol] 109 mmol/L High 98 - 10 7 mmol/L [facility] Work Phone: [phone] CO2 [Moles/Vol] 21 mmol/L Low 22 - 30 mmol/L [facility] Work Phone: [phone] Creatinine [Mass/Vol] 0.65 mg/dL 0.52 - 1.25 mg/dL [facility] Work Phone: [phone] IF NonAfrican Czech 88.4 mL/min >60 [facility] Work Phone: [phone] Comment on above: KDIGO guidelines pro vide the following GFR categories: Stage GFR(ml/min/1.73 m2) Terms G1 >=90 Normal or high G2 60-89 Mildly decreased* G3a 45-59 Mildly to moderately decreased G3b 30-44 Moderately to severely decreased G4 15-29 Severely decreased G5 <15 Kidney failure *Relative to young adult level. In the absence of evidence of kidney damage, neither GFR category G1 nor G2 fulfill the criteria for CKD. The CKD-EPI equation is validated in individuals 18 years of age and older. Currently the best equation for estimating glomerular filtration rate (GFR) from serum creatinine in children is the Bedside Morales equation. It is less accurate in patients with extremes of muscle mass, restriction of dietary protein, ingestion of creatine, extra-renal metabolism of creatinine, or treatment with medications that affect renal tubular creatinine secretion. GFR/1.73 sq M.predicted among blacks MDRD (S/P/Bld) [Vol rate/Area] mL/min/{1.73_m2} >60 mL/min [facility] Work Phone: [phone] Glucose [Mass/Vol] 138 mg/dL High 70 - 100 mg/dL [facility] Work Phone: [phone] Interpretation and review of laboratory results Abnormal [facility] Work Phone: [phone] Potassium [Moles/Vol] 3.8 mmol/L 3.5 - 5.1 mmol/L [facility] Work Phone: [phone] Sodium [Moles/Vol] 136 mmol/L 135 - 145 mmol/L [facility] Work Phone: [phone] Urea nitrogen (BldV) [Mass/Vol] 27 mg/dL High 7 - 20 mg/dL [facility] Work Phone: CBCOrdered By: Ronen Hein on 11-11-2020 Hematocrit (Bld) [Volume fraction] 26.7 % Low 35.0 - 47.0 % [facility] Work Phone: Hemoglobin.gastrointes tinal spec 1 Ql (Stl) 8.9 g/dL Low 11.7 - 16.0 g/dL [facility] Work Phone: Interpretation and review of laboratory results Abnormal [facility] Work Phone: MCH (RBC) [Entitic mass] 27.8 pg 26.0 - 34.0 pg [facility] Work Phone: MCHC (RBC) [Mass/Vol] 33.2 % 32.0 - 36.0 % [facility] Work Phone: MCV (RBC) [Entitic vol] 83.6 fL 79.0 - 98.0 fL [facility] Work Phone: Platelet distribution width (Bld) [Ratio] 18.5 % High 11.5 - 14.5 % [facility] Work Phone: Platelet mean volume (Bld) [Entitic vol] 10.6 fL High 7.4 - 10.4 fL [facility] Work Phone: Platelets (Bld) [#/Vol] 120 10*3/uL Low 140 - 440 10*3/uL [facility] Work Phone: RBC (Bld) [#/Vol] 3.20 10*6/uL Low 3.80 - 5.2 0 10*6/uL [facility] Work Phone: WBC (Bld) [#/Vol] 7.2 10*3/uL 3.6 - 10.7 10*3/uL [facility] Work Phone: Test Performed by [facility], [address] [place] [address] [facility] Work Phone: [facility] Work Phone: CR Chest Portableon 11-12-19 21 CR Chest Portable [facility]: [id number] ACCESSION EXAM DATE/TIME PROCEDURE ORDERING PROVIDER [id number] 11/11/2020 06:21 EDT CR Chest Portable BRIELLE KATHRIN PASTORDEE [facility] CPT code 20662 Reason For Exam (CR Chest Portable) Shortness of breath Report PORTABLE CHEST X-RAY CLINICAL INDICATION: Shortness of breath A portable frontal view of the chest was obtained. COMPARISON: 11/10/2020 FINDINGS: Heart size is within normal limits. Sternotomy wires, right jugular sheath, mediastinal drain, and bilateral chest tubes are stable in appearance. There is elevation of the right hemidiaphragm with right lower lobe atelectasis or infiltrate and streaky left basilar atelectasis, similar to the prior study. There may be a trace right pleural effusion, unchanged. There is no pneumothorax. There are degenerative changes of the spine. IMPRESSION: No significant change when compared with the previous study. Report Dictated on Final Dictated: 11/11/2020 7:46 am Dictating Physician: MD WOODWARD JONATHAN R Signed Date and Time: 11/11/2020 7:47 am Signed by: MD WOODWARD JONATHAN R Transcribed Date and Time: 11/11/2020 7:46 Normal [facility] CULTURE URINEon 11-11-2020 CULTURE URINE CULTURE URINE --> St atus: F No growth (<1,000 CFU/ml). Normal [facility] Comment on above: Performed By: #### B MP3M, TROPN, MG3, HEMDF, PHOS3 #### [address] [address] Culture, UrineOrdered By: Er in [place] on 11-11-2020 Bacteria identified Cx Nom (U) No growth (<1,000 CFU/ml). [facility] Work Phone: Test Performed by [facility] [employer] [facility], [address] [place] [address] [facility] Work Phone: [facility] Work Phone: Glucose,BedsideOrdered By: Goran Mujica on 11-11-2020 Glucose [Mass/Vol] 98 mg/dL Normal 70-100 [facility] Work Phone: Comment on above: Test performed by gl ucose meter. Results may be 10%-15% lower than serum/plasma values. (CLIA ID [id number]) Result Comment: Test performed by glucose meter. Results may be 10%-15% lower than serum/plasma values. (CLIA ID [id number]) Performed By: #### B MP3M, TROPN, MG3, HEMDF, PHOS3 #### [employer] [place] [address], [place] Glucose,Bedsideon 11-11-2020 Glucose [Mass/Vol] 167 mg/dL High 70-100 [facility] Comment on above: Result Comment: Test performed by glucose meter. Results may be 10%-15% lower than serum/plasma values. (CLIA ID [id number]) Performed By: #### B MP3M, TROPN, MG3, HEMDF, PHOS3 #### [facility] [place], [place] Glucose [Mass/Vol] 135 mg/dL High 70-100 [facility] Comment on above: Result Comment: Test performed by glucose meter. Results may be 10%-15% lower than serum/plasma values. (CLIA ID [id number]) Performed By: #### B MP3M, TROPN, MG3, HEMDF, PHOS3 #### [address] [address] [place] [address] Hemogramon 11-11-2020 Erythrocyte distribution width (RBC) [Ratio] 18.5 % High 11.5-14.5 [facility] Comment on above: Performed By: #### M G3, HEMDF, BMP3M, PHOS3 #### [employer] [place] [address] [place], [place] Hematocrit (Bld) [Volume fraction] 26.7 % Low 35.0-47.0 [facility] Comment on above: Performed By: #### M G3, HEMDF, BMP3M, PHOS3 #### [place] [address] [place], [place] Hemoglobin (Bld) [Mass/Vol] 8.9 g/dL Low 11.7-16.0 [facility] Comment on above: Performed By: #### M G3, HEMDF, BMP3M, PHOS3 #### [place] [address] [place], [place] MCH (RBC) [Entitic mass] 27.8 pg Normal 26.0-34.0 [facility] Comment on above: Performed By: #### M G3, HEMDF, BMP3M, PHOS3 #### [place] [address], [place] MCHC 33.2 % Normal 32.0-36.0 [facility] Comment on above: Performed By: #### Ismael G3, HEMDF, BMP3M, PHOS3 #### [place] [address], [place] MCV (RBC) [Entitic vol] 83.6 fL Normal 79.0-98.0 [facility] Comment on above: Performed By: #### M G3, HEMDF, BMP3M, PHOS3 #### [place] [address], [place] Platelet mean volume (Bld) [Entitic vol] 10.6 fL High 7.4-10.4 [facility] Comment on above: Performed By: #### M G3, HEMDF, BMP3M, PHOS3 #### [place] [address], [place] Platelets (Bld) [#/Vol] 120 10*3/uL Low 140-440 [facility] Comment on above: Performed By: #### M G3, HEMDF, BMP3M, PHOS3 #### [place] [address], [place] RBC (Bld) [#/Vol] 3.20 10*6/uL Low 3.80-5.20 [facility] Comment on above: Performed By: #### M G3, HEMDF, BMP3M, PHOS3 #### [facility] [address], [place] WBC (Bld) [#/Vol] 7.2 10*3/uL Normal 3.6-10.7 [facility] Comment on above: Performed By: #### M G3, HEMDF, BMP3M, PHOS3 #### [facility] [address], [place] Laboratory - Blood bankOrder ed By: Unknown Result on 11-11-2020 ABO and Rh group Nom (Bld) [address] [facility] Work Phone: Leukodepleted Red Cellson Leukodepleted Red Cells Leukodepleted Red Cells: [id number] released 11/11/20 05:41 [facility] Unit Blood Type: A Unit Blood Rh: POS Blood Product Code: AS1 Unit Number: [id number] Unit Status: released Barcoded Unit Number: =[id number] Barcoded Product Code: = Barcoded ABO/Rh: =%6200 Unit Expiration: [id number] Leukodepleted Red Cells: [id number] released 11/11/20 05:41 [facility] Unit Blood Type: A Unit Blood Rh: POS Blood Product Code: AS1 Unit Number: [id number] Unit Status: released Barcoded Unit Number: =[id number] Barcoded Product Code: = Barcoded ABO/Rh: =%6200 Unit Expiration: Normal [facility] Comment on above: Performed By: #### M G3, HEMDF, BMP3M, PHOS3 #### [facility] [address], [place] Magnesiumon 11-11-2020 Magnesium [Mass/Vol] 2.1 mg/dL Normal 1.6-2.3 [facility] Comment on above: Performed By: #### M G3, HEMDF, BMP3M, PHOS3 #### [facility] [address], [place] MagnesiumOrdered By: Ronen Hein on 11-11-2020 Magnesium [Mass/Vol] 2.1 mg/dL 1.6 - 2 .3 mg/dL [facility] Work Phone: 1 No Panel InformationOrdered By: Ronen Hein on 11-11-2020 Test Performed by [employer], [facility] [place] [address] [facility] Work Phone: 1 [facility] Work Phone: 1 POCT GlucoseOrdered By: Zulma Mujica on 11-11-2020 Glucose [Mass/Vol] 167 mg/dL High 70 - 100 mg/dL [facility] Work Phone: 1 Comment on above: Test performed by gl ucose meter. Results may be 10%-15% lower than serum/plasma values. (CLIA ID [id number]) Interpretation and review of laboratory results Abnormal [facility] Work Phone: 1 Test Performed by [facility], [facility] [place] [address] [facility] Work Phone: 1 [facility] Work Phone: 1 Glucose [Mass/Vol] 135 mg/dL High 70 - 100 mg/dL [facility] Work Phone: 1 Comment on above: Test performed by gl ucose meter. Results may be 10%-15% lower than serum/plasma values. (CLIA ID [id number]) Interpretation and review of laboratory results Abnormal [facility] Work Phone: 1 Test Performed by [facility], [facility] [place] [address] [facility] Work Phone: 1 [facility] Work Phone: 1 PREPARE RBC (CROSSMATCH)Orde red By: Unknown Result on 11-11-2020 Blood product unit ID (Dose) [#] [id number] [facility] Work Phone: 1 Blood product unit ID (Dose) [#] [id number] [facility] Work Phone: 1 Dispense Status Blood Bank released [facility] Work Phone: 1 Expiration Date [facility] Work Phone: [phone] Expiration Date [facility] Work Phone: [phone] Product Code Blood Bank [id number] [facility] Work Phone: [phone] [facility] Work Phone: [phone] [facility] Work Phone: [phone] CHEST PORTABLEOrdered By: Ronen Hein on 11-11-2020 Patient Name: GENNY VARELA Diagnostic Radiology ACCESSION EXAM DATE/TIME PROCEDURE ORDERING PROVIDER [id number] 11/11/2020 06:21 EDT CR Chest Portable DAWIT HEIN MATTHEW R. CPT code 66408 Reason For Exam (CR Chest Portable) Shortness of breath Report PORTABLE CHEST X-RAY CLINICAL INDICATION: Shortness of breath A portable frontal view of the chest was obtained. COMPARISON: 11/10/2020 FINDINGS: Heart size is within normal limits. Sternotomy wires, right jugular sheath, mediastinal drain, and bilateral chest tubes are stable in appearance. There is elevation of the right hemidiaphragm with right lower lobe atelectasis or infiltrate and streaky left basilar atelectasis, similar to the prior study. There may be a trace right pleural effusion, unchanged. There is no pneumothorax. There are degenerative changes of the spine. IMPRESSION: No significant change when compared with the previous study. Report Dictated on --- Final --- Dictated: 11/11/2020 7:46 am Dictating Physician: MD WOODWARD JONATHAN R Signed Date and Time: 11/11/2020 7:47 am Signed by: MD WOODWARD JONATHAN R Transcribed Date and Time: 11/11/2020 7:46 [facility] Work Phone: [phone] [facility], [facility] Results From [facility] - 11/11/2020 7:48 AM EDT Patient Name: GENNY VARELA Diagnostic Radiology ACCESSION EXAM DATE/TIME PROCEDURE ORDERING PROVIDER [id number] 11/11/2020 06:21 EDT CR Chest Portable DAWIT HEIN MATTHEW R. CPT code 76326 Reason For Exam (CR Chest Portable) Shortness of breath Report PORTABLE CHEST X-RAY CLINICAL INDICATION: Shortness of breath A portable frontal view of the chest was obtained. COMPARISON: 11/10/2020 FINDINGS: Heart size is within normal limits. Sternotomy wires, right jugular sheath, mediastinal drain, and bilateral chest tubes are stable in appearance. There is elevation of the right hemidiaphragm with right lower lobe atelectasis or infiltrate and streaky left basilar atelectasis, similar to the prior study. There may be a trace right pleural effusion, unchanged. There is no pneumothorax. There are degenerative changes of the spine. IMPRESSION: No significant change when compared with the previous study. Report Dictated on --- Final --- Dictated: 11/11/2020 7:46 am Dictating Physician: MD WOODWARD JONATHAN R Signed Date and Time: 11/11/2020 7:47 am Signed by: MD WOODWARD JONATHAN R Transcribed Date and Time: 11/11/2020 7:46 [facility] Work Phone: [facility] Work Phone: Arterial Blood Gaseson 11-10 CO2 [Moles/Vol] 22.3 mmol/L Low 23.0-27.0 [facility] Comment on above: Performed By: #### M G3, HEMDF, BMP3M, PHOS3 #### [facility] [address], [place] HCO3 (Bld) [Moles/Vol] 21.5 mmol/L Normal 21.0-25.0 [facility] Comment on above: Performed By: #### M G3, HEMDF, BMP3M, PHOS3 #### [facility] [employer] [facility] [address], [place] Hemoglobin (Bld) [Mass/Vol] 9.8 g/dL Normal ScreenOnly [facility] Comment on above: Performed By: #### M G3, HEMDF, BMP3M, PHOS3 #### [facility] [address], [place] Oxygen (Bld) [Partial pressure] 70.6 mm[Hg] Low 80.0-100.0 [facility] Comment on above: Performed By: #### M G3, HEMDF, BMP3M, PHOS3 #### [place] [address], [place] Oxygen saturation in Blood 94.4 % Low 95.0-100.0 [facility] Comment on above: Performed By: #### M G3, HEMDF, BMP3M, PHOS3 #### [place] [address], [place] pCO2 26.9 mm[Hg] Low 35.0-45.0 [facility] Comment on above: Performed By: #### M G3, HEMDF, BMP3M, PHOS3 #### [place] [address], [place] pH 7.521 High 7.350-7.450 [facility] Comment on above: Performed By: #### M G3, HEMDF, BMP3M, PHOS3 #### [place] [address], [place] Std Base Excess -0.6 mmol/L Normal -3.0-3.0 [facility] Comment on above: Performed By: #### M G3, HEMDF, BMP3M, PHOS3 #### [address] FIO2 1L Normal [facility] Comment on above: Performed By: #### M G3, HEMDF, BMP3M, PHOS3 #### [place] [address], [place] Basic Metabolic Panelon 07-0 Anion gap [Moles/Vol] 9 mmol/L Normal 3-13 [facility] Comment on above: Performed By: #### B MP3M, TROPN, MG3, HEMDF, PHOS3 #### [address] Calcium [Mass/Vol] 7.8 mg/dL Low 8.4-10.4 [facility] Comment on above: Performed By: #### B MP3M, TROPN, MG3, HEMDF, PHOS3 #### [facility] [address], [place] CO2 [Moles/Vol] 21 mmol/L Low 22-30 [facility] Comment on above: Performed By: #### B MP3M, TROPN, MG3, HEMDF, PHOS3 #### [facility] [address], [place] Glucose [Mass/Vol] 150 mg/dL High 70-100 [facility] Comment on above: Performed By: #### B MP3M, TROPN, MG3, HEMDF, PHOS3 #### [facility] [address], [place] Urea nitrogen [Mass/Vol] 30 mg/dL High 7-20 [facility] Comment on above: Performed By: #### B MP3M, TROPN, MG3, HEMDF, PHOS3 #### [place] [address], [place] Creatinine [Mass/Vol] 0.78 mg/dL Normal 0.52-1.25 [facility] Comment on above: Performed By: #### B MP3M, TROPN, MG3, HEMDF, PHOS3 #### [facility] [address], [place] GFR/1.73 sq M.predicted among blacks MDRD (S/P/Bld) [Vol rate/Area] 87.8 mL/min/{1.73_m2} Normal >60 [facility] Comment on above: Performed By: #### B MP3M, TROPN, MG3, HEMDF, PHOS3 #### [place] [address], [place] GFR/1.73 sq M.predicted among non-blacks MDRD (S/P/Bld) [Vol rate/Area] 75.7 mL/min/{1.73_m2} Normal >60 [facility] Comment on above: Result Comment: KDIG O guidelines provide the following GFR categories: Stage GFR(ml/min/1.73 m2) Terms G1 >=90 Normal or high G2 60-89 Mildly decreased* G3a 45-59 Mildly to moderately decreased G3b 30-44 Moderately to severely decreased G4 15-29 Severely decreased G5 <15 Kidney failure *Relative to young adult level. In the absence of evidence of kidney damage, neither GFR category G1 nor G2 fulfill the criteria for CKD. The CKD-EPI equation is validated in individuals 18 years of age and older. Currently the best equation for estimating glomerular filtration rate (GFR) from serum creatinine in children is the Bedside Morales equation. It is less accurate in patients with extremes of muscle mass, restriction of dietary protein, ingestion of creatine, extra-renal metabolism of creatinine, or treatment with medications that affect renal tubular creatinine secretion. Performed By: #### B MP3M, TROPN, MG3, HEMDF, PHOS3 #### [address] Chloride [Moles/Vol] 104 mmol/L Normal 98-107 [facility] Comment on above: Performed By: #### B MP3M, TROPN, MG3, HEMDF, PHOS3 #### [address] Potassium [Moles/Vol] 4.3 mmol/L Normal 3.5-5.1 [facility] Comment on above: Performed By: #### B MP3M, TROPN, MG3, HEMDF, PHOS3 #### [address] Sodium [Moles/Vol] 133 mmol/L Low 135-145 [facility] Comment on above: Performed By: #### B MP3M, TROPN, MG3, HEMDF, PHOS3 #### [address] Basic Metabolic PanelOrdered By: Ronen Hein on 11-10-2020 Anion gap [Moles/Vol] 9 mmol/L 3 - 13 mmol/L [facility] Work Phone: Calcium [Mass/Vol] 7.8 mg/dL Low 8.4 - 10. 4 mg/dL [facility] Work Phone: Chloride [Moles/Vol] 104 mmol/L 98 - 10 7 mmol/L [facility] Work Phone: [phone] CO2 [Moles/Vol] 21 mmol/L Low 22 - 30 mmol/L [facility] Work Phone: [phone] Creatinine [Mass/Vol] 0.78 mg/dL 0.52 - 1.25 mg/dL [facility] Work Phone: [phone] EGFR IF NonAfrican Czech 75.7 mL/min >60 [facility] Work Phone: [phone] Comment on above: KDIGO guidelines pro vide the following GFR categories: Stage GFR(ml/min/1.73 m2) Terms G1 >=90 Normal or high G2 60-89 Mildly decreased* G3a 45-59 Mildly to moderately decreased G3b 30-44 Moderately to severely decreased G4 15-29 Severely decreased G5 <15 Kidney failure *Relative to young adult level. In the absence of evidence of kidney damage, neither GFR category G1 nor G2 fulfill the criteria for CKD. The CKD-EPI equation is validated in individuals 18 years of age and older. Currently the best equation for estimating glomerular filtration rate (GFR) from serum creatinine in children is the Bedside Morales equation. It is less accurate in patients with extremes of muscle mass, restriction of dietary protein, ingestion of creatine, extra-renal metabolism of creatinine, or treatment with medications that affect renal tubular creatinine secretion. GFR/1.73 sq M.predicted among blacks MDRD (S/P/Bld) [Vol rate/Area] 87.8 mL/min/{1.73_m2} >60 [facility] Work Phone: [phone] Glucose [Mass/Vol] 150 mg/dL High 70 - 100 mg/dL [facility] Work Phone: [phone] Interpretation and review of laboratory results Abnormal [facility] Work Phone: [phone] Potassium [Moles/Vol] 4.3 mmol/L 3.5 - 5.1 mmol/L [facility] Work Phone: [phone] Sodium [Moles/Vol] 133 mmol/L Low 135 - 145 mmol/L [facility] Work Phone: [phone] Urea nitrogen (BldV) [Mass/Vol] 30 mg/dL High 7 - 20 mg/dL [facility] Work Phone: [phone] Blood Gas, ArterialOrdered B y: Jonnie Owusu on 11-10-2020 Base Excess, Arterial -0.6 mmol/L -3.0 - 3.0 mmol/L [facility] Work Phone: [phone] CO2 [Moles/Vol] 22.3 mmol/L Low 23.0 - 27.0 mmol/L [facility] Work Phone: 1 FIO2 Arterial 1L [facility] Work Phone: HCO3 (Bld) [Moles/Vol] 21.5 mmol/L 21.0 - 25.0 mmol/L [facility] Work Phone: Hemoglobin (Bld) [Mass/Vol] 9.8 g/dL ScreenOnly [facility] Work Phone: Interpretation and review of laboratory results Abnormal [facility] Work Phone: Oxygen saturation in Blood 94.4 % Low 95.0 - 100.0 % [facility] Work Phone: pCO2, Arterial 26.9 mm[Hg] Low 35.0 - 45.0 mm[Hg] [facility] Work Phone: pH, Arterial 7.521 High [facility] Work Phone: pO2, Arterial 70.6 mm[Hg] Low 80.0 - 100.0 mm[Hg] [facility] Work Phone: Test Performed by [facility], [address] [place] [address] [facility] Work Phone: [facility] Work Phone: CBCOrdered By: Jonnie Owusu on 11-10-2020 Hematocrit (Bld) [Volume fraction] 25.6 % Low 35.0 - 47.0 % [facility] Work Phone: Hemoglobin.gastrointes tinal spec 1 Ql (Stl) 8.5 g/dL Low 11.7 - 16.0 g/dL [facility] Work Phone: [phone] Interpretation and review of laboratory results Abnormal [facility] Work Phone: MCH (RBC) [Entitic mass] 28.1 pg 26.0 - 34.0 pg [facility] Work Phone: MCHC (RBC) [Mass/Vol] 33.3 % 32.0 - 36.0 % [facility] Work Phone: MCV (RBC) [Entitic vol] 84.6 fL 79.0 - 98.0 fL [facility] Work Phone: Platelet distribution width (Bld) [Ratio] 18.2 % High 11.5 - 14.5 % [facility] Work Phone: Platelet mean volume (Bld) [Entitic vol] 11.1 fL High 7.4 - 10.4 fL [facility] Work Phone: Platelets (Bld) [#/Vol] 116 10*3/uL Low 140 - 440 10*3/uL [facility] Work Phone: RBC (Bld) [#/Vol] 3.02 10*6/uL Low 3.80 - 5.2 0 10*6/uL [facility] Work Phone: WBC (Bld) [#/Vol] 8.4 10*3/uL 3.6 - 10.7 10*3/uL [facility] Work Phone: Test Performed by [facility], [address] [place] [address] [facility] Work Phone: [facility] Work Phone: CBCOrdered By: Ronen Hein on 11-10-2020 Hematocrit (Bld) [Volume fraction] 28.1 % Low 35.0 - 47.0 % [facility] Work Phone: Hemoglobin.gastrointes tinal spec 1 Ql (Stl) 9.3 g/dL Low 11.7 - 16.0 g/dL [facility] Work Phone: Interpretation and review of laboratory results Abnormal [facility] Work Phone: MCH (RBC) [Entitic mass] 27.7 pg 26.0 - 34.0 pg [facility] Work Phone: MCHC (RBC) [Mass/Vol] 33.0 % 32.0 - 36.0 % [facility] Work Phone: MCV (RBC) [Entitic vol] 84.1 fL 79.0 - 98.0 fL [facility] Work Phone: 1 Platelet distribution width (Bld) [Ratio] 17.9 % High 11.5 - 14.5 % [facility] Work Phone: Platelet mean volume (Bld) [Entitic vol] 10.3 fL 7.4 - 10.4 fL [facility] Work Phone: Platelets (Bld) [#/Vol] 128 10*3/uL Low 140 - 440 10*3/uL [facility] Work Phone: 1 RBC (Bld) [#/Vol] 3.34 10*6/uL Low 3.80 - 5.2 0 10*6/uL [facility] Work Phone: 1 WBC (Bld) [#/Vol] 9.9 10*3/uL 3.6 - 10.7 10*3/uL [facility] Work Phone: Test Performed by [facility], [address] [place] [address] [facility] Work Phone: [facility] Work Phone: CR Chest Portableon 11-11-19 21 CR Chest Portable Patient Name: GENNY VARELA Diagnostic Radiology ACCESSION EXAM DATE/TIME PROCEDURE ORDERING PROVIDER [id number] 11/10/2020 13:55 EDT CR Chest Portable [id number] -JONNIE OWUSU CPT code 29105 Reason For Exam (CR Chest Portable) Inc WOB Report Examination: Portable chest Indication: Inc WOB Comparison: Same day Findings: The exam is limited secondary to portable technique and large patient body habitus. Multiple tubes and lines overlie the patient. This does somewhat limit assessment. Suspect left basilar chest tube. There is an additional curve tube overlying the medial right hemithorax, mediastinum and medial left hemithorax, grossly similar Elevated right hemidiaphragm is present. There may be a small to moderate right-sided pleural effusion. The overall configuration is unchanged. Median sternotomy changes are present. The cardiac silhouette appears enlarged. Patchy left basilar densities are present. Follow-up recommended. Impression: As above. Report Dictated on Final Dictated: 11/10/2020 2:03 pm Dictating Physician: MD CHAU KRIKOR Signed Date and Time: 11/10/2020 2:05 pm Signed by: MD CHAU KRIKOR Transcribed Date and Time: 11/10/2020 2:03 Normal [facility] CR Chest Portable Patient Name: GENNY VARELA Diagnostic Radiology ACCESSION EXAM DATE/TIME PROCEDURE ORDERING PROVIDER [id number] 11/10/2020 06:39 EDT CR Chest Portable DAWIT HEIN MATTHEW R. CPT code 74443 Reason For Exam (CR Chest Portable) Shortness of breath Report INDICATION:Shortness of breath. PORTABLE CHEST: COMPARISON: 11/09/2020. There are shallow lung volumes. Mild bilateral lower lung atelectasis. Consider right pleural effusion. Mild left lower lung atelectasis. Heart and mediastinal contours appear similar. [place] catheter and mediastinal chest tube are still present. No pneumothorax. Report Dictated on Final Dictated: 11/10/2020 9:43 am Dictating Physician: MD TREVIZO LAURA Signed Date and Time: 11/10/2020 9:46 am Signed by: MD TREVIZO LAURA Transcribed Date and Time: 11/10/2020 9:43 Normal [facility] Complete Urinalysison 2020 Appearance (U) Clear Normal Clear [facility] Comment on above: Result Comment: . Performed By: #### B MP3M, TROPN, MG3, HEMDF, PHOS3 #### [facility] [address] [place] [address] Bacteria Few Abnormal Negative [facility] Comment on above: Result Comment: . Performed By: #### B MP3M, TROPN, MG3, HEMDF, PHOS3 #### [facility] [address] [place] [address] Bilirubin,Urine Negative Normal Negative [facility] Comment on above: Result Comment: . Performed By: #### B MP3M, TROPN, MG3, HEMDF, PHOS3 #### [place] [address], [place] Cast, Hyaline 3 - 5 Abnormal Negative [facility] Comment on above: Result Comment: . Performed By: #### B MP3M, TROPN, MG3, HEMDF, PHOS3 #### [place] [address], [place] Color (U) Light-Yellow Normal Lt. Yellow [facility] Comment on above: Result Comment: . Performed By: #### B MP3M, TROPN, MG3, HEMDF, PHOS3 #### [place] [address], [place] Glucose Ql (U) Normal Normal Normal (<70) [facility] Comment on above: Result Comment: . Performed By: #### B MP3M, TROPN, MG3, HEMDF, PHOS3 #### [place] [address], [place] Ketone,Urine Negative Normal Negative [facility] Comment on above: Result Comment: . Performed By: #### B MP3M, TROPN, MG3, HEMDF, PHOS3 #### [place] [address], [place] Leukocytes,Urine 250 Petar/uL Abnormal Negative [facility] Comment on above: Result Comment: . Performed By: #### B MP3M, TROPN, MG3, HEMDF, PHOS3 #### [place] [address], [place] Mucous Threads Few Normal Negative [facility] Comment on above: Result Comment: . Performed By: #### B MP3M, TROPN, MG3, HEMDF, PHOS3 #### [place] [address], [place] Nitrites,Urine Negative Normal Negative [facility] Comment on above: Result Comment: . Performed By: #### B MP3M, TROPN, MG3, HEMDF, PHOS3 #### [facility] [address], [place] Occult Blood,Urine 0.2 mg/dL Abnormal Negative [facility] Comment on above: Result Comment: . Performed By: #### B MP3M, TROPN, MG3, HEMDF, PHOS3 #### [facility] [address], [place] pH,Urine 6.0 Normal 5.0-8.0 [facility] Comment on above: Result Comment: . Performed By: #### B MP3M, TROPN, MG3, HEMDF, PHOS3 #### [place] [address], [place] RBC, Urine 26 - 50 Abnormal 0-2 [facility] Comment on above: Result Comment: . Performed By: #### B MP3M, TROPN, MG3, HEMDF, PHOS3 #### [place] [address], [place] Specific [place],Urine 1.012 Normal 1.005 - 1.030 [facility] Comment on above: Result Comment: . Performed By: #### B MP3M, TROPN, MG3, HEMDF, PHOS3 #### [place] [address], [place] Squamous Epithelial Negative Normal 3-5 [facility] Comment on above: Result Comment: . Performed By: #### B MP3M, TROPN, MG3, HEMDF, PHOS3 #### [place] [address], [place] Total Protein,Urine Negative Normal Negative [facility] Comment on above: Result Comment: . Performed By: #### B MP3M, TROPN, MG3, HEMDF, PHOS3 #### [place] [address], [place] Urobilinogen,Urine Normal Normal Normal (0-1) [facility] Comment on above: Result Comment: . Performed By: #### B MP3M, TROPN, MG3, HEMDF, PHOS3 #### [place] [address], [place] WBC, Urine 6 - 10 Abnormal 0-5 [facility] Comment on above: Result Comment: . 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1950 Requested By: ZULMA MUJICA Order Number: [id number] Reading MD: Yandel Alvarez Measurements Intervals [place] Rate: 144 P: 68 NC: 159 QRS: 23 QRSD: 104 T: 196 QT: 298 QTc: 461 Interpretive Statements ATRIAL FIBRILLATION WITH RAPID VENTRICULAR RESPONSE Anterior infarct, old Repolarization abnormality, prob rate related Electronically Signed On 11-10-2020 12:55:02 EDT by Yandel Alvarez [facility] Work Phone: Onur, [facility] Incoming Cardiology Results From [facility] - 11/10/2020 12:56 PM EDT [facility] Test Date: 2020-11-10 Pat Name: GNENY VARELA Department: [facility] Room: [facility] Gender: F [employer] Supervisor: MEM : 1950 Requested By: ZULMA MUJICA Order Number: [id number] Reading MD: Yandel Alvarez Measurements Intervals [place] Rate: 144 P: 68 NC: 159 QRS: 23 QRSD: 104 T: 196 QT: 298 QTc: 461 Interpretive Statements ATRIAL FIBRILLATION WITH RAPID VENTRICULAR RESPONSE Anterior infarct, old Repolarization abnormality, prob rate related Electronically Signed On 11-10-2020 12:55:02 EDT by Yandel Alvarez [facility] Work Phone: [facility] Work Phone: EKG 12 leadOrdered By: Kathrin Hein on 11-10-2020 [facility] Test Date: 2020-11-09 Pat Name: GENNY VARELA Department: [facility] Room: [facility] Gender: F [employer] Supervisor: MYKEL : 1950 Requested By: RONEN HEIN Order Number: [id number] Reading MD: Yandel Alvarez Measurements Intervals [place] Rate: 94 P: -7 NC: 152 QRS: 29 QRSD: 100 T: 146 QT: 413 QTc: 517 Interpretive Statements Sinus rhythm Abnormal T, consider ischemia, inferior and lateral leads Minimal ST elevation, anterior leads Prolonged QT interval Electronically Signed On 11-10-2020 8:12:52 EDT by Yandel Alvarez [employer] Work Phone: Onur, [facility] Incoming Cardiology Results From [facility] - 11/10/2020 8:13 AM EDT [facility] [employer] [facility] Test Date: 2020-11-09 Pat Name: GENNY VARELA Department: 1AHLU Room: [facility] Gender: F [employer] Supervisor: MYKEL : 1950 Requested By: RONEN HEIN Order Number: [id number] Reading MD: Yandel Alvarez Measurements Intervals [place] Rate: 94 P: -7 NC: 152 QRS: 29 QRSD: 100 T: 146 QT: 413 QTc: 517 Interpretive Statements Sinus rhythm Abnormal T, consider ischemia, inferior and lateral leads Minimal ST elevation, anterior leads Prolonged QT interval Electronically Signed On 11-10-2020 8:12:52 EDT by Yandel ABDI Work Phone: [employer] Work Phone: Glucose,Bedsideon 11-10-2020 Glucose [Mass/Vol] 133 mg/dL High 70-100 [facility] [employer] [facility] Comment on above: Result Comment: Test performed by glucose meter. Results may be 10%-15% lower than serum/plasma values. (CLIA ID [id number]) Performed By: #### M G3, HEMDF, BMP3M, PHOS3 #### [facility] [address] [place] [id number] Glucose [Mass/Vol] 120 mg/dL High 70-100 [facility] [employer] [facility] Comment on above: Result Comment: Test performed by glucose meter. Results may be 10%-15% lower than serum/plasma values. (CLIA ID [id number]) Performed By: #### B MP3M, TROPN, MG3, HEMDF, PHOS3 #### [facility] [address], [place] Glucose [Mass/Vol] 111 mg/dL High 70-100 [facility] Comment on above: Result Comment: Test performed by glucose meter. Results may be 10%-15% lower than serum/plasma values. (CLIA ID [id number]) Performed By: #### B MP3M, TROPN, MG3, HEMDF, PHOS3 #### [place] [address], [place] Glucose [Mass/Vol] 150 mg/dL High 70-100 [facility] Comment on above: Result Comment: Test performed by glucose meter. Results may be 10%-15% lower than serum/plasma values. (CLIA ID [id number]) Performed By: #### M G3, HEMDF, BMP3M, PHOS3 #### [place] [address], [place] Glucose [Mass/Vol] 153 mg/dL High 70-100 [facility] Comment on above: Result Comment: Test performed by glucose meter. Results may be 10%-15% lower than serum/plasma values. (CLIA ID [id number]) Performed By: #### B MP3M, TROPN, MG3, HEMDF, PHOS3 #### [place] [address], [place] Hemogramon 11-10-2020 Erythrocyte distribution width (RBC) [Ratio] 18.2 % High 11.5-14.5 [facility] Comment on above: Performed By: #### M G3, HEMDF, BMP3M, PHOS3 #### [place] [address], [place] Hematocrit (Bld) [Volume fraction] 25.6 % Low 35.0-47.0 [facility] Comment on above: Performed By: #### M G3, HEMDF, BMP3M, PHOS3 #### [place] [address], [place] Hemoglobin (Bld) [Mass/Vol] 8.5 g/dL Low 11.7-16.0 [facility] Comment on above: Performed By: #### M G3, HEMDF, BMP3M, PHOS3 #### [facility] [address], [place] MCH (RBC) [Entitic mass] 28.1 pg Normal 26.0-34.0 [facility] Comment on above: Performed By: #### M G3, HEMDF, BMP3M, PHOS3 #### [facility] [address], [place] MCHC 33.3 % Normal 32.0-36.0 [facility] Comment on above: Performed By: #### M G3, HEMDF, BMP3M, PHOS3 #### [place] [address], [place] MCV (RBC) [Entitic vol] 84.6 fL Normal 79.0-98.0 [facility] Comment on above: Performed By: #### M G3, HEMDF, BMP3M, PHOS3 #### [place] [address], [place] Platelet mean volume (Bld) [Entitic vol] 11.1 fL High 7.4-10.4 [facility] Comment on above: Performed By: #### M G3, HEMDF, BMP3M, PHOS3 #### [place] [address], [place] Platelets (Bld) [#/Vol] 116 10*3/uL Low 140-440 [facility] Comment on above: Performed By: #### M G3, HEMDF, BMP3M, PHOS3 #### [facility] [address], [place] RBC (Bld) [#/Vol] 3.02 10*6/uL Low 3.80-5.20 [facility] Comment on above: Performed By: #### M G3, HEMDF, BMP3M, PHOS3 #### [place] [address], [place] WBC (Bld) [#/Vol] 8.4 10*3/uL Normal 3.6-10.7 [facility] Comment on above: Performed By: #### M G3, HEMDF, BMP3M, PHOS3 #### [place] [address] [place], [place] Erythrocyte distribution width (RBC) [Ratio] 17.9 % High 11.5-14.5 [facility] Comment on above: Performed By: #### B MP3M, TROPN, MG3, HEMDF, PHOS3 #### [place] [address] [place], [place] Hematocrit (Bld) [Volume fraction] 28.1 % Low 35.0-47.0 [facility] Comment on above: Performed By: #### B MP3M, TROPN, MG3, HEMDF, PHOS3 #### [place] [address] [place], [place] Hemoglobin (Bld) [Mass/Vol] 9.3 g/dL Low 11.7-16.0 [facility] Comment on above: Performed By: #### B MP3M, TROPN, MG3, HEMDF, PHOS3 #### [place] [address] [place], [place] MCH (RBC) [Entitic mass] 27.7 pg Normal 26.0-34.0 [facility] Comment on above: Performed By: #### B MP3M, TROPN, MG3, HEMDF, PHOS3 #### [place] [address] [place], [place] MCHC 33.0 % Normal 32.0-36.0 [facility] Comment on above: Performed By: #### B MP3M, TROPN, MG3, HEMDF, PHOS3 #### [address] MCV (RBC) [Entitic vol] 84.1 fL Normal 79.0-98.0 [facility] Comment on above: Performed By: #### B MP3M, TROPN, MG3, HEMDF, PHOS3 #### [place] [address] [place], [place] Platelet mean volume (Bld) [Entitic vol] 10.3 fL Normal 7.4-10.4 [facility] Comment on above: Performed By: #### B MP3M, TROPN, MG3, HEMDF, PHOS3 #### [facility] [address], [place] Platelets (Bld) [#/Vol] 128 10*3/uL Low 140-440 [facility] Comment on above: Performed By: #### B MP3M, TROPN, MG3, HEMDF, PHOS3 #### [place] [address], [place] RBC (Bld) [#/Vol] 3.34 10*6/uL Low 3.80-5.20 [facility] Comment on above: Performed By: #### B MP3M, TROPN, MG3, HEMDF, PHOS3 #### [place] [address], [place] WBC (Bld) [#/Vol] 9.9 10*3/uL Normal 3.6-10.7 [facility] Comment on above: Performed By: #### B MP3M, TROPN, MG3, HEMDF, PHOS3 #### [place] [address] [place] [address] Magnesiumon 11-10-2020 Magnesium [Mass/Vol] 2.2 mg/dL Normal 1.6-2.3 [facility] Comment on above: Performed By: #### B MP3M, TROPN, MG3, HEMDF, PHOS3 #### [place] [address] [place] [address] MagnesiumOrdered By: Ronen Hein on 11-10-2020 Magnesium [Mass/Vol] 2.2 mg/dL 1.6 - 2 .3 mg/dL [facility] Work Phone: No Panel InformationOrdered By: Ronen Hein on 11-10-2020 Test Performed by [facility], [facility] [place] [facility] Work Phone: [facility] Work Phone: 1 POCT GlucoseOrdered By: Zulma Mujica on 11-10-2020 Glucose [Mass/Vol] 133 mg/dL High 70 - 100 mg/dL [facility] Work Phone: 1 Comment on above: Test performed by gl ucose meter. Results may be 10%-15% lower than serum/plasma values. (CLIA ID [id number]) Interpretation and review of laboratory results Abnormal [facility] Work Phone: 1 Test Performed by [facility], [place] [address] [facility] Work Phone: 1 [facility] Work Phone: 1 Glucose [Mass/Vol] 120 mg/dL High 70 - 100 mg/dL [facility] Work Phone: 1 Comment on above: Test performed by gl ucose meter. Results may be 10%-15% lower than serum/plasma values. (CLIA ID [id number]) Interpretation and review of laboratory results Abnormal [facility] Work Phone: 1 Test Performed by [facility], [place] [address] [facility] Work Phone: 1 [facility] Work Phone: 1 Glucose [Mass/Vol] 111 mg/dL High 70 - 100 mg/dL [facility] Work Phone: 1 Comment on above: Test performed by gl ucose meter. Results may be 10%-15% lower than serum/plasma values. (CLIA ID [id number]) Interpretation and review of laboratory results Abnormal [facility] Work Phone: 1 Test Performed by [facility], [place] [address] [facility] Work Phone: 1 [facility] Work Phone: 1 Glucose [Mass/Vol] 150 mg/dL High 70 - 100 mg/dL [facility] Work Phone: 1 Comment on above: Test performed by gl ucose meter. Results may be 10%-15% lower than serum/plasma values. (CLIA ID [id number]) Interpretation and review of laboratory results Abnormal [facility] Work Phone: [phone] Test Performed by [address] [address] [facility] Work Phone: [phone] [facility] Work Phone: [phone] US GUIDE THORACENTESISOrdere d By: Jonnie Owusu on 11-10-2020 Patient Name: GENNY VARELA Ultrasound ACCESSION EXAM DATE/TIME PROCEDURE ORDERING PROVIDER [id number] 11/10/2020 16:51 EDT US Thora-Aspir Pleura w/ [id number] -JONNIE OWUSU Image CPT code 96697 98192 Reason For Exam (US Thora-Aspir Pleura w/ Image) R Pleural effusion Report ULTRASOUND CHEST-LIMITED: CLINICAL INDICATION: Limited ultrasound prior to ultrasound-guided thoracentesis TECHNIQUE: Limited ultrasound of the posterior chest wall was performed prior to ultrasound-guided thoracentesis. COMPARISON: None FINDINGS: Ultrasound images of the right and left posterior chest wall show trace pleural effusions, right greater than left. No significant pocket of fluid amenable to ultrasound guided thoracentesis. IMPRESSION: Trace pleural fluid, not amenable to ultrasound-guided thoracentesis. Report Dictated on Workstation: [email or web address] --- Final --- Dictated: 11/10/2020 4:04 pm Dictating Physician: MD PRADO KEVIN Signed Date and Time: 11/10/2020 4:05 pm Signed by: MD PRADO KEVIN Transcribed Date and Time: 11/10/2020 4:04 [facility] Work Phone: Onur, [facility] Incoming Radiology Results From [facility] - 11/10/2020 4:51 PM EDT Patient Name: GENNY VARELA Ultrasound ACCESSION EXAM DATE/TIME PROCEDURE ORDERING PROVIDER [id number] 11/10/2020 16:51 EDT US Thora-Aspir Pleura w/ [id number] -JONNIE OWUSU Image CPT code 94078 37916 Reason For Exam (US Thora-Aspir Pleura w/ Image) R Pleural effusion Report ULTRASOUND CHEST-LIMITED: CLINICAL INDICATION: Limited ultrasound prior to ultrasound-guided thoracentesis TECHNIQUE: Limited ultrasound of the posterior chest wall was performed prior to ultrasound-guided thoracentesis. COMPARISON: None FINDINGS: Ultrasound images of the right and left posterior chest wall show trace pleural effusions, right greater than left. No significant pocket of fluid amenable to ultrasound guided thoracentesis. IMPRESSION: Trace pleural fluid, not amenable to ultrasound-guided thoracentesis. Report Dictated on Workstation: [email or web address] --- Final --- Dictated: 11/10/2020 4:04 pm Dictating Physician: MD PRADO KEVIN Signed Date and Time: 11/10/2020 4:05 pm Signed by: MD PRADO KEVIN Transcribed Date and Time: 11/10/2020 4:04 [facility] Work Phone: [facility] Work Phone: US Thora-Aspir Pleura w/ Dayna geon 11-10-2020 US Thora-Aspir Pleura w/ Image Patient Name: GENNY VARELA Ultrasound ACCESSION EXAM DATE/TIME PROCEDURE ORDERING PROVIDER [id number] 11/10/2020 16:51 EDT US Thora-Aspir Pleura w/ [id number] -JONNIE OWUSU Image CPT code 52829 50642 Reason For Exam (US Thora-Aspir Pleura w/ Image) R Pleural effusion Report ULTRASOUND CHEST-LIMITED: CLINICAL INDICATION: Limited ultrasound prior to ultrasound-guided thoracentesis TECHNIQUE: Limited ultrasound of the posterior chest wall was performed prior to ultrasound-guided thoracentesis. COMPARISON: None FINDINGS: Ultrasound images of the right and left posterior chest wall show trace pleural effusions, right greater than left. No significant pocket of fluid amenable to ultrasound guided thoracentesis. IMPRESSION: Trace pleural fluid, not amenable to ultrasound-guided thoracentesis. Report Dictated on Workstation: [email or web address] Final Dictated: 11/10/2020 4:04 pm Dictating Physician: MD PRADO KEVIN Signed Date and Time: 11/10/2020 4:05 pm Signed by: MD PRADO KEVIN Transcribed Date and Time: 11/10/2020 4:04 Normal [facility] UrinalysisOrdered By: Elias Henry on 11-10-2020 Appearance (U) Clear Clear NA [employer] Work Phone: [phone] Comment on above: . Bacteria, UA Few Abnormal Negative /[HPF] [employer] Work Phone: [phone] Comment on above: . Bilirubin Urine Negative Negative mg/dL [employer] Work Phone: [phone] Comment on above: . Color (U) Light-Yellow Lt. Yellow NA [employer] Work Phone: [phone] Comment on above: . Glucose, Ur Normal Normal (<70) mg/dL [employer] Work Phone: [phone] Comment on above: . Hyaline Casts, UA 3-5 Abnormal Negative /[LPF] [facility] Work Phone: [phone] Comment on above: . Interpretation and review of laboratory results Abnormal [facility] Work Phone: [phone] Ql (U) Negative Negative mg/dL [employer] Work Phone: [phone] Comment on above: . LEUKOCYTES, UA 250 Abnormal Negative Petar/uL [employer] Work Phone: [phone] Comment on above: . Mucous Threads Few Negative /[LPF] [employer] Work Phone: [phone] Comment on above: . Nitrite, Urine Negative Negative NA [facility] Work Phone: [phone] Comment on above: . Occult Blood,Urine 0.2 mg/dL Abnormal Negative [facility] Work Phone: [phone] Comment on above: . pH (U) 6.0 [pH] [employer] Work Phone: [phone] Comment on above: . RBC, UA 26-50 Abnormal 0 - 2 /[HPF] [employer] Work Phone: [phone] Comment on above: . Specific [place], Urine 1.012 [facility] Work Phone: [phone] Comment on above: . Squam Epithel, UA Negative 3 - 5 /[HPF] [employer] Work Phone: [phone] Comment on above: . Total Protein, Urine Negative Negativ e mg/dL [employer] Work Phone: [phone] Comment on above: . Urobilinogen, Urine Normal Normal (0-1) mg/dL [facility] Work Phone: Comment on above: . WBC, UA 6-10 Abnormal 0 - 5 /[HPF] [facility] Work Phone: Comment on above: . Test Performed by [facility], [address] [place] [address] [facility] Work Phone: [facility] Work Phone: XR CHEST PORTABLEOrdered By: Jonnie Owusu on 11-10-2020 Patient Name: GENNY VARELA Diagnostic Radiology ACCESSION EXAM DATE/TIME PROCEDURE ORDERING PROVIDER [id number] 11/10/2020 13:55 EDT CR Chest Portable [id number] -JONNIE OWUSU CPT code 31212 Reason For Exam (CR Chest Portable) Inc WOB Report Examination: Portable chest Indication: Inc WOB Comparison: Same day Findings: The exam is limited secondary to portable technique and large patient body habitus. Multiple tubes and lines overlie the patient. This does somewhat limit assessment. Suspect left basilar chest tube. There is an additional curve tube overlying the medial right hemithorax, mediastinum and medial left hemithorax, grossly similar Elevated right hemidiaphragm is present. There may be a small to moderate right-sided pleural effusion. The overall configuration is unchanged. Median sternotomy changes are present. The cardiac silhouette appears enlarged. Patchy left basilar densities are present. Follow-up recommended. Impression: As above. Report Dictated on --- Final --- Dictated: 11/10/2020 2:03 pm Dictating Physician: MD CHAU KRIKOR Signed Date and Time: 11/10/2020 2:05 pm Signed by: MD CHAU KRIKOR Transcribed Date and Time: 11/10/2020 2:03 [facility] Work Phone: [facility], [facility] Incoming Radiology Results From [facility] - 11/10/2020 2:06 PM EDT Patient Name: GENNY VARELA Diagnostic Radiology ACCESSION EXAM DATE/TIME PROCEDURE ORDERING PROVIDER [id number] 11/10/2020 13:55 EDT CR Chest Portable [id number] MEI JONNIE CPT code 73121 Reason For Exam (CR Chest Portable) Inc WOB Report Examination: Portable chest Indication: Inc WOB Comparison: Same day Findings: The exam is limited secondary to portable technique and large patient body habitus. Multiple tubes and lines overlie the patient. This does somewhat limit assessment. Suspect left basilar chest tube. There is an additional curve tube overlying the medial right hemithorax, mediastinum and medial left hemithorax, grossly similar Elevated right hemidiaphragm is present. There may be a small to moderate right-sided pleural effusion. The overall configuration is unchanged. Median sternotomy changes are present. The cardiac silhouette appears enlarged. Patchy left basilar densities are present. Follow-up recommended. Impression: As above. Report Dictated on --- Final --- Dictated: 11/10/2020 2:03 pm Dictating Physician: MD CHAU KRIKOR Signed Date and Time: 11/10/2020 2:05 pm Signed by: MD CHAU KRIKOR Transcribed Date and Time: 11/10/2020 2:03 [facility] Work Phone: [facility] Work Phone: XR CHEST PORTABLEOrdered By: Ronen Hein on 11-10-2020 Patient Name: GENNY VARELA Diagnostic Radiology ACCESSION EXAM DATE/TIME PROCEDURE ORDERING PROVIDER [id number] 11/10/2020 06:39 EDT CR Chest Portable DAWIT HEIN MATTHEW R. CPT code 82404 Reason For Exam (CR Chest Portable) Shortness of breath Report INDICATION:Shortness of breath. PORTABLE CHEST: COMPARISON: 11/09/2020. There are shallow lung volumes. Mild bilateral lower lung atelectasis. Consider right pleural effusion. Mild left lower lung atelectasis. Heart and mediastinal contours appear similar. [place]Chivo catheter and mediastinal chest tube are still present. No pneumothorax. Report Dictated on --- Final --- Dictated: 11/10/2020 9:43 am Dictating Physician: MD TREVIZO LAURA Signed Date and Time: 11/10/2020 9:46 am Signed by: MD TREVIZO LAURA Transcribed Date and Time: 11/10/2020 9:43 [facility] Work Phone: Onur, [facility] Results From [facility] - 11/10/2020 9:47 AM EDT Patient Name: GENNY VARELA Diagnostic Radiology ACCESSION EXAM DATE/TIME PROCEDURE ORDERING PROVIDER [id number] 11/10/2020 06:39 EDT CR Chest Portable DAWIT HEIN MATTHEW R. CPT code 56115 Reason For Exam (CR Chest Portable) Shortness of breath Report INDICATION:Shortness of breath. PORTABLE CHEST: COMPARISON: 11/09/2020. There are shallow lung volumes. Mild bilateral lower lung atelectasis. Consider right pleural effusion. Mild left lower lung atelectasis. Heart and mediastinal contours appear similar. [place]Chivo catheter and mediastinal chest tube are still present. No pneumothorax. Report Dictated on --- Final --- Dictated: 11/10/2020 9:43 am Dictating Physician: MD TREVIZO LAURA Signed Date and Time: 11/10/2020 9:46 am Signed by: MD TREVIZO LAURA Transcribed Date and Time: 11/10/2020 9:43 [facility] Work Phone: [facility] Work Phone: Basic Metabolic Panelon 07-0 Anion gap [Moles/Vol] 6 mmol/L Normal 3-13 [facility] Comment on above: Performed By: #### M G3, HEMDF, BMP3M, PHOS3 #### [address] [address] Calcium [Mass/Vol] 8.1 mg/dL Low 8.4-10.4 [facility] Comment on above: Performed By: #### M G3, HEMDF, BMP3M, PHOS3 #### [facility] [address], [place] CO2 [Moles/Vol] 21 mmol/L Low 22-30 [facility] Comment on above: Performed By: #### M G3, HEMDF, BMP3M, PHOS3 #### [place] [address], [place] Glucose [Mass/Vol] 110 mg/dL High 70-100 [facility] Comment on above: Performed By: #### M G3, HEMDF, BMP3M, PHOS3 #### [place] [address] [place], [place] Urea nitrogen [Mass/Vol] 17 mg/dL Normal 7-20 [facility] Comment on above: Performed By: #### M G3, HEMDF, BMP3M, PHOS3 #### [place] [address] [place], [place] Creatinine [Mass/Vol] 0.70 mg/dL Normal 0.52-1.25 [facility] Comment on above: Performed By: #### M G3, HEMDF, BMP3M, PHOS3 #### [place] [address], [place] GFR/1.73 sq M.predicted among blacks MDRD (S/P/Bld) [Vol rate/Area] mL/min/{1.73_m2} Normal >60 [facility] Comment on above: Performed By: #### M G3, HEMDF, BMP3M, PHOS3 #### [place] [address], [place] GFR/1.73 sq M.predicted among non-blacks MDRD (S/P/Bld) [Vol rate/Area] 86.3 mL/min/{1.73_m2} Normal >60 [facility] Comment on above: Result Comment: KDIG O guidelines provide the following GFR categories: Stage GFR(ml/min/1.73 m2) Terms G1 >=90 Normal or high G2 60-89 Mildly decreased* G3a 45-59 Mildly to moderately decreased G3b 30-44 Moderately to severely decreased G4 15-29 Severely decreased G5 <15 Kidney failure *Relative to young adult level. In the absence of evidence of kidney damage, neither GFR category G1 nor G2 fulfill the criteria for CKD. The CKD-EPI equation is validated in individuals 18 years of age and older. Currently the best equation for estimating glomerular filtration rate (GFR) from serum creatinine in children is the Bedside Morales equation. It is less accurate in patients with extremes of muscle mass, restriction of dietary protein, ingestion of creatine, extra-renal metabolism of creatinine, or treatment with medications that affect renal tubular creatinine secretion. Performed By: #### M G3, HEMDF, BMP3M, PHOS3 #### [place] [address] [place], [place] Chloride [Moles/Vol] 110 mmol/L High 98-107 [facility] Comment on above: Performed By: #### M G3, HEMDF, BMP3M, PHOS3 #### [place] [address] [place], [place] Potassium [Moles/Vol] 4.3 mmol/L Normal 3.5-5.1 [facility] Comment on above: Performed By: #### M G3, HEMDF, BMP3M, PHOS3 #### [place] [address] [place], [place] Sodium [Moles/Vol] 136 mmol/L Normal 135-145 [facility] Comment on above: Performed By: #### M G3, HEMDF, BMP3M, PHOS3 #### [place] [address] [place], [place] Basic Metabolic PanelOrdered By: Roenn Hein on 11-09-2020 Anion gap [Moles/Vol] 6 mmol/L 3 - 13 mmol/L [facility] Work Phone: Calcium [Mass/Vol] 8.1 mg/dL Low 8.4 - 10. 4 mg/dL [facility] Work Phone: Chloride [Moles/Vol] 110 mmol/L High 98 - 10 7 mmol/L [facility] Work Phone: CO2 [Moles/Vol] 21 mmol/L Low 22 - 30 mmol/L [facility] Work Phone: [phone] Creatinine [Mass/Vol] 0.7 mg/dL 0.52 - 1.25 mg/dL [facility] Work Phone: [phone] EGFR IF NonAfrican Czech 86.3 mL/min >60 [facility] Work Phone: [phone] Comment on above: KDIGO guidelines pro vide the following GFR categories: Stage GFR(ml/min/1.73 m2) Terms G1 >=90 Normal or high G2 60-89 Mildly decreased* G3a 45-59 Mildly to moderately decreased G3b 30-44 Moderately to severely decreased G4 15-29 Severely decreased G5 <15 Kidney failure *Relative to young adult level. In the absence of evidence of kidney damage, neither GFR category G1 nor G2 fulfill the criteria for CKD. The CKD-EPI equation is validated in individuals 18 years of age and older. Currently the best equation for estimating glomerular filtration rate (GFR) from serum creatinine in children is the Bedside Morales equation. It is less accurate in patients with extremes of muscle mass, restriction of dietary protein, ingestion of creatine, extra-renal metabolism of creatinine, or treatment with medications that affect renal tubular creatinine secretion. GFR/1.73 sq M.predicted among blacks MDRD (S/P/Bld) [Vol rate/Area] mL/min/{1.73_m2} >60 mL/min [facility] Work Phone: [phone] Glucose [Mass/Vol] 110 mg/dL High 70 - 100 mg/dL [facility] Work Phone: [phone] Potassium [Moles/Vol] 4.3 mmol/L 3.5 - 5.1 mmol/L [facility] Work Phone: [phone] Sodium [Moles/Vol] 136 mmol/L 135 - 145 mmol/L [facility] Work Phone: [phone] Urea nitrogen (BldV) [Mass/Vol] 17 mg/dL 7 - 20 mg/dL [facility] Work Phone: [phone] CBCOrdered By: Ronen Hein on 11-09-2020 Hematocrit (Bld) [Volume fraction] 28.7 % Low 35.0 - 47.0 % [facility] Work Phone: [phone] Hemoglobin.gastrointes tinal spec 1 Ql (Stl) 9.4 g/dL Low 11.7 - 16.0 g/dL [facility] Work Phone: Interpretation and review of laboratory results Abnormal [facility] Work Phone: MCH (RBC) [Entitic mass] 27.7 pg 26.0 - 34.0 pg [facility] Work Phone: MCHC (RBC) [Mass/Vol] 32.8 % 32.0 - 36.0 % [facility] Work Phone: MCV (RBC) [Entitic vol] 84.3 fL 79.0 - 98.0 fL [facility] Work Phone: Platelet distribution width (Bld) [Ratio] 18.0 % High 11.5 - 14.5 % [facility] Work Phone: Platelet mean volume (Bld) [Entitic vol] 10.9 fL High 7.4 - 10.4 fL [facility] Work Phone: Platelets (Bld) [#/Vol] 141 10*3/uL 140 - 440 10*3/uL [facility] Work Phone: RBC (Bld) [#/Vol] 3.40 10*6/uL Low 3.80 - 5.2 0 10*6/uL [facility] Work Phone: WBC (Bld) [#/Vol] 14.4 10*3/uL High 3.6 - 10.7 10*3/uL [facility] Work Phone: Test Performed by [address] [address] [facility] Work Phone: [employer] Work Phone: CR Chest Portableon 11-10-19 21 CR Chest Portable Patient Name: GENNY VARELA Diagnostic Radiology ACCESSION EXAM DATE/TIME PROCEDURE ORDERING PROVIDER [id number] 11/09/2020 06:08 EDT CR Chest Portable DAWIT HEIN MATTHEW R. CPT code 40141 Reason For Exam (CR Chest Portable) Shortness of breath Report CLINICAL INFORMATION: Shortness of breath. CHEST X-RAY, PORTABLE, 0535 hours: An AP portable view is compared to the prior examination of the previous day. The endotracheal and endogastric tubes have been removed. There is no change in the position of the right internal jugular [place]Ch[place] catheter or mediastinal chest tube. The left lower hemithorax chest tubes is changed in position. The cardiac silhouette is mildly enlarged but unchanged. There is increased density in the right lower hemithorax which could be increased subpulmonic effusion. There is increased decreased left lung base atelectasis. No other acute process or interval change. IMPRESSION: 1. Altered position of the left lower hemithorax chest tube and interval removal of endotracheal and endogastric tubes. 2. Increased density in the right lower hemithorax which could be increased right hemidiaphragm elevation or increased subpulmonic effusion. 3. No evidence of other acute process or interval change except for increased left lung base atelectasis. 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 : 1950 Requested By: RONEN HEIN Order Number: [id number] Reading MD: Manuel Rousseau Measurements Intervals [place] Rate: 98 P: 46 NC: 150 QRS: 49 QRSD: 104 T: 218 QT: 347 QTc: 444 Interpretive Statements Sinus rhythm Repol abnrm suggests ischemia, diffuse leads PROBABLE ANTEROSEPTAL INFARCT, OLD Electronically Signed On 11-09-2020 15:16:49 EDT by Manuel ABDI Work Phone: Onur, [facility] Incoming Cardiology Results From [facility] - 11/09/2020 3:17 PM EDT makr Test Date: 2020-11-08 Pat Name: GENNY VARELA Department[facility] Room: [facility] Gender: F [employer] Supervisor: : 1950 Requested By: RONEN HEIN Order Number: [id number] Reading MD: Manuel Rousseau Measurements Intervals [place] Rate: 98 P: 46 NC: 150 QRS: 49 QRSD: 104 T: 218 QT: 347 QTc: 444 Interpretive Statements Sinus rhythm Repol abnrm suggests ischemia, diffuse leads PROBABLE ANTEROSEPTAL INFARCT, OLD Electronically Signed On 11-09-2020 15:16:49 EDT by Manuel Rousseau [employer] Work Phone: [employer] Work Phone: Free T4on 11-09-2020 Free T4 [Mass/Vol] 1.54 ng/dL Normal 0.78-2.19 [facility] [employer] Comment on above: Performed By: #### M G3, HEMDF, BMP3M, PHOS3 #### [employer] [facility] [address] [place] [address] Glucose,Bedsideon 11-09-2020 Glucose [Mass/Vol] 181 mg/dL High 70-100 [facility] [employer] [facility] Comment on above: Result Comment: Test performed by glucose meter. Results may be 10%-15% lower than serum/plasma values. (CLIA ID [id number]) Performed By: #### B MP3M, TROPN, MG3, HEMDF, PHOS3 #### [facility] [address] [place] [address] Glucose [Mass/Vol] 118 mg/dL High 70-100 [facility] Comment on above: Result Comment: Test performed by glucose meter. Results may be 10%-15% lower than serum/plasma values. (CLIA ID [id number]) Performed By: #### B MP3M, TROPN, MG3, HEMDF, PHOS3 #### [facility] [address] [place] [address] Glucose [Mass/Vol] 53 mg/dL Low 70-100 [facility] Comment on above: Result Comment: Test performed by glucose meter. Results may be 10%-15% lower than serum/plasma values. (CLIA ID [id number]) Performed By: #### B MP3M, TROPN, MG3, HEMDF, PHOS3 #### [facility] [employer] [facility] [address] [place] [address] Glucose [Mass/Vol] 125 mg/dL High 70-100 [facility] Comment on above: Result Comment: Test performed by glucose meter. Results may be 10%-15% lower than serum/plasma values. (CLIA ID [id number]) Performed By: #### B MP3M, TROPN, MG3, HEMDF, PHOS3 #### [facility] [employer] [facility] [address] [place] [address] Glucose [Mass/Vol] 161 mg/dL High 70-100 [facility] Comment on above: Result Comment: Test performed by glucose meter. Results may be 10%-15% lower than serum/plasma values. (CLIA ID [id number]) Performed By: #### B MP3M, TROPN, MG3, HEMDF, PHOS3 #### [employer] [facility] [address] [place] [address] Glucose [Mass/Vol] 193 mg/dL High 70-100 [facility] Comment on above: Result Comment: Test performed by glucose meter. Results may be 10%-15% lower than serum/plasma values. (CLIA ID [id number]) Performed By: #### B GLU #### [facility] [employer] [facility] [address] [place] [address] Glucose [Mass/Vol] 135 mg/dL High 70-100 [facility] Comment on above: Result Comment: Test performed by glucose meter. Results may be 10%-15% lower than serum/plasma values. (CLIA ID [id number]) Performed By: #### B GLU #### [facility] [employer] [facility] [address] [place] [address] Glucose [Mass/Vol] 121 mg/dL High 70-100 [facility] Comment on above: Result Comment: Test performed by glucose meter. Results may be 10%-15% lower than serum/plasma values. (CLIA ID [id number]) Performed By: #### M G3, HEMDF, BMP3M, PHOS3 #### [facility] [address] [place] [address] Glucose [Mass/Vol] 68 mg/dL Low 70-100 [facility] Comment on above: Result Comment: Test performed by glucose meter. Results may be 10%-15% lower than serum/plasma values. (CLIA ID [id number]) Performed By: #### B GLU #### [place] [address] [place] [address] Glucose [Mass/Vol] 74 mg/dL Normal 70-100 [facility] Comment on above: Result Comment: Test performed by glucose meter. Results may be 10%-15% lower than serum/plasma values. (CLIA ID [id number]) Performed By: #### B GLU #### [place] [address] [place] [address] Glucose [Mass/Vol] 138 mg/dL High 70-100 [facility] Comment on above: Result Comment: Test performed by glucose meter. Results may be 10%-15% lower than serum/plasma values. (CLIA ID [id number]) Performed By: #### B GLU #### [place] [address] [place] [address] Glucose [Mass/Vol] 110 mg/dL High 70-100 [facility] Comment on above: Result Comment: Test performed by glucose meter. Results may be 10%-15% lower than serum/plasma values. (CLIA ID [id number]) Performed By: #### B MP3M, TROPN, MG3, HEMDF, PHOS3 #### [facility] [address] [place] [address] Glucose [Mass/Vol] 81 mg/dL Normal 70-100 [facility] Comment on above: Result Comment: Test performed by glucose meter. Results may be 10%-15% lower than serum/plasma values. (CLIA ID [id number]) Performed By: #### B MP3M, TROPN, MG3, HEMDF, PHOS3 #### [facility] [employer] [facility] [address] [place] [address] Glucose [Mass/Vol] 128 mg/dL High 70-100 [facility] Comment on above: Result Comment: Test performed by glucose meter. Results may be 10%-15% lower than serum/plasma values. (CLIA ID [id number]) Performed By: #### B MP3M, TROPN, MG3, HEMDF, PHOS3 #### [facility] [employer] [facility] [address] [place] [address] Glucose [Mass/Vol] 138 mg/dL High 70-100 [facility] Comment on above: Result Comment: Test performed by glucose meter. Results may be 10%-15% lower than serum/plasma values. (CLIA ID [id number]) Performed By: #### B MP3M, TROPN, MG3, HEMDF, PHOS3 #### [facility] [employer] [place] [address] [place] [address] Glucose,BedsideOrdered By: Goran Mujica on 11-09-2020 Glucose [Mass/Vol] 85 mg/dL Normal 70-100 [facility] Work Phone: Comment on above: Test performed by gl ucose meter. Results may be 10%-15% lower than serum/plasma values. (CLIA ID [id number]) Result Comment: Test performed by glucose meter. Results may be 10%-15% lower than serum/plasma values. (CLIA ID [id number]) Performed By: #### M G3, HEMDF, BMP3M, PHOS3 #### [facility] [employer] [facility] [address] [place] [address] Glucose [Mass/Vol] 114 mg/dL High 70-100 [facility] Work Phone: Comment on above: Test performed by gl ucose meter. Results may be 10%-15% lower than serum/plasma values. (CLIA ID [id number]) Result Comment: Test performed by glucose meter. Results may be 10%-15% lower than serum/plasma values. (CLIA ID [id number]) Performed By: #### B GLU #### [place] [address], [place] Hemogramon 11-09-2020 Erythrocyte distribution width (RBC) [Ratio] 18.0 % High 11.5-14.5 [facility] Comment on above: Performed By: #### M G3, HEMDF, BMP3M, PHOS3 #### [address] [address] [place], [place] Hematocrit (Bld) [Volume fraction] 28.7 % Low 35.0-47.0 [facility] Comment on above: Performed By: #### M G3, HEMDF, BMP3M, PHOS3 #### [address] [address] [place], [place] Hemoglobin (Bld) [Mass/Vol] 9.4 g/dL Low 11.7-16.0 [facility] Comment on above: Performed By: #### M G3, HEMDF, BMP3M, PHOS3 #### [place] [address], [place] MCH (RBC) [Entitic mass] 27.7 pg Normal 26.0-34.0 [facility] Comment on above: Performed By: #### M G3, HEMDF, BMP3M, PHOS3 #### [address] MCHC 32.8 % Normal 32.0-36.0 [facility] Comment on above: Performed By: #### M G3, HEMDF, BMP3M, PHOS3 #### [place], [place] MCV (RBC) [Entitic vol] 84.3 fL Normal 79.0-98.0 [facility] Comment on above: Performed By: #### M G3, HEMDF, BMP3M, PHOS3 #### [address] [address] [place], [place] Platelet mean volume (Bld) [Entitic vol] 10.9 fL High 7.4-10.4 [facility] Comment on above: Performed By: #### M G3, HEMDF, BMP3M, PHOS3 #### [facility] [address] [place] [address] Platelets (Bld) [#/Vol] 141 10*3/uL Normal 140-440 [facility] Comment on above: Performed By: #### M G3, HEMDF, BMP3M, PHOS3 #### [facility] [address] [place] [address] RBC (Bld) [#/Vol] 3.40 10*6/uL Low 3.80-5.20 [facility] Comment on above: Performed By: #### M G3, HEMDF, BMP3M, PHOS3 #### [facility] [address] [place] [address] WBC (Bld) [#/Vol] 14.4 10*3/uL High 3.6-10.7 [facility] Comment on above: Performed By: #### M G3, HEMDF, BMP3M, PHOS3 #### [address] [place] [address] Magnesiumon 11-09-2020 Magnesium [Mass/Vol] 2.4 mg/dL High 1.6-2.3 [facility] Comment on above: Performed By: #### M G3, HEMDF, BMP3M, PHOS3 #### [address] [place] [address] MagnesiumOrdered By: Ronen Hein on 11-09-2020 Magnesium [Mass/Vol] 2.4 mg/dL High 1.6 - 2 .3 mg/dL [facility] Work Phone: No Panel InformationOrdered By: Zulma Mujica on 11-09-2020 Test Performed by [facility], [address] [place] [address] [facility] Work Phone: [phone] [facility] Work Phone: No Panel InformationOrdered By: Ronen Hein on 11-09-2020 Interpretation and review of laboratory results Abnormal [facility] Work Phone: [phone] Test Performed by [facility], [facility] [place] [address] [facility] Work Phone: [phone] [facility] Work Phone: 1 POCT GlucoseOrdered By: Zulma Mujica on 11-09-2020 Glucose [Mass/Vol] 153 mg/dL High 70 - 100 mg/dL [facility] Work Phone: 1 Comment on above: Test performed by gl ucose meter. Results may be 10%-15% lower than serum/plasma values. (CLIA ID [id number]) Interpretation and review of laboratory results Abnormal [facility] Work Phone: 1 Test Performed by [facility], [place] [address] [facility] Work Phone: 1 [facility] Work Phone: 1 Glucose [Mass/Vol] 181 mg/dL High 70 - 100 mg/dL [facility] Work Phone: 1 Comment on above: Test performed by gl ucose meter. Results may be 10%-15% lower than serum/plasma values. (CLIA ID [id number]) Interpretation and review of laboratory results Abnormal [facility] Work Phone: 1 Test Performed by [facility], [place] [address] [facility] Work Phone: 1 [facility] Work Phone: 1 Glucose [Mass/Vol] 118 mg/dL High 70 - 100 mg/dL [facility] Work Phone: 1 Comment on above: Test performed by gl ucose meter. Results may be 10%-15% lower than serum/plasma values. (CLIA ID [id number]) Interpretation and review of laboratory results Abnormal [facility] Work Phone: 1 Test Performed by [facility], [place] [address] [facility] Work Phone: 1 [facility] Work Phone: 1 Glucose [Mass/Vol] 53 mg/dL Low 70 - 100 mg/dL [facility] Work Phone: 1 Comment on above: Test performed by gl ucose meter. Results may be 10%-15% lower than serum/plasma values. (CLIA ID [id number]) Interpretation and review of laboratory results Abnormal [facility] Work Phone: 1() Test Performed by [facility], [facility] [place] [address] [facility] Work Phone: 1() [facility] Work Phone: 1 Glucose [Mass/Vol] 125 mg/dL High 70 - 100 mg/dL [facility] Work Phone: 1 Comment on above: Test performed by gl ucose meter. Results may be 10%-15% lower than serum/plasma values. (CLIA ID [id number]) Interpretation and review of laboratory results Abnormal [facility] Work Phone: 1() Test Performed by [facility], [facility] [place] [address] [facility] Work Phone: 1) [facility] Work Phone: 1) Glucose [Mass/Vol] 161 mg/dL High 70 - 100 mg/dL [facility] Work Phone: 1() Comment on above: Test performed by gl ucose meter. Results may be 10%-15% lower than serum/plasma values. (CLIA ID [id number]) Interpretation and review of laboratory results Abnormal [facility] Work Phone: 1() Test Performed by [facility], [facility] [place] [address] [facility] Work Phone: 1() [facility] Work Phone: 1() Glucose [Mass/Vol] 193 mg/dL High 70 - 100 mg/dL [facility] Work Phone: 1() Comment on above: Test performed by gl ucose meter. Results may be 10%-15% lower than serum/plasma values. (CLIA ID [id number]) Interpretation and review of laboratory results Abnormal [facility] Work Phone: 1() Test Performed by [facility], [facility] [place] [address] [facility] Work Phone: 1() [facility] Work Phone: 1() Glucose [Mass/Vol] 135 mg/dL High 70 - 100 mg/dL [facility] Work Phone: 1 Comment on above: Test performed by gl ucose meter. Results may be 10%-15% lower than serum/plasma values. (CLIA ID [id number]) Interpretation and review of laboratory results Abnormal [facility] Work Phone: 1 Test Performed by [employer], [facility] [place] [address] [facility] Work Phone: 1 [facility] Work Phone: 1 Glucose [Mass/Vol] 121 mg/dL High 70 - 100 mg/dL [facility] Work Phone: 1 Comment on above: Test performed by gl ucose meter. Results may be 10%-15% lower than serum/plasma values. (CLIA ID [id number]) Interpretation and review of laboratory results Abnormal [facility] Work Phone: 1 Test Performed by [employer], [facility] [place] [address] [facility] Work Phone: 1 [facility] Work Phone: 1 Glucose [Mass/Vol] 114 mg/dL High 70 - 100 mg/dL [facility] Work Phone: 1 Comment on above: Test performed by gl ucose meter. Results may be 10%-15% lower than serum/plasma values. (CLIA ID [id number]) Interpretation and review of laboratory results Abnormal [facility] Work Phone: 1) Glucose [Mass/Vol] 68 mg/dL Low 70 - 100 mg/dL [facility] Work Phone: 1() Comment on above: Test performed by gl ucose meter. Results may be 10%-15% lower than serum/plasma values. (CLIA ID [id number]) Interpretation and review of laboratory results Abnormal [facility] Work Phone: 1() Test Performed by [facility], [facility] [place] [address] [facility] Work Phone: 1() [facility] Work Phone: 1 Glucose [Mass/Vol] 74 mg/dL 70 - 100 mg/dL [facility] Work Phone: 1 Comment on above: Test performed by gl ucose meter. Results may be 10%-15% lower than serum/plasma values. (CLIA ID [id number]) Test Performed by [facility], [facility] [place] [address] [facility] Work Phone: 1() [facility] Work Phone: 1 Interpretation and review of laboratory results Abnormal [facility] Work Phone: 1() Test Performed by [facility], [facility] [place] [address] [facility] Work Phone: 1() [facility] Work Phone: 1( Glucose [Mass/Vol] 138 mg/dL High 70 - 100 mg/dL [facility] Work Phone: 1() Comment on above: Test performed by gl ucose meter. Results may be 10%-15% lower than serum/plasma values. (CLIA ID [id number]) Interpretation and review of laboratory results Abnormal [facility] Work Phone: 1() Test Performed by [facility], [facility] [place] [address] [facility] Work Phone: 1() [facility] Work Phone: 1() Glucose [Mass/Vol] 110 mg/dL High 70 - 100 mg/dL [facility] Work Phone: 1() Comment on above: Test performed by gl ucose meter. Results may be 10%-15% lower than serum/plasma values. (CLIA ID [id number]) Interpretation and review of laboratory results Abnormal [facility] Work Phone: 1() Test Performed by [facility], [facility] [place] [address] [facility] Work Phone: 1() [facility] Work Phone: 1( Glucose [Mass/Vol] 81 mg/dL 70 - 100 mg/dL [facility] Work Phone: 1() Comment on above: Test performed by gl ucose meter. Results may be 10%-15% lower than serum/plasma values. (CLIA ID [id number]) Test Performed by [facility], [address] [place] [address] [facility] Work Phone: [phone] [facility] Work Phone: [phone], FreeOrdered By: Krishan Garces on 11-09-2020 Free T4 [Mass/Vol] 1.54 ng/dL 0.78 - 2. 19 ng/dL [facility] Work Phone: [phone] Performed by [facility], [address] [place] [address] [facility] Work Phone: [phone] [facility] Work Phone: [phone] XR CHEST PORTABLEOrdered By: Ronen Hein on 11-09-2020 Patient Name: GENNY VARELA Diagnostic Radiology ACCESSION EXAM DATE/TIME PROCEDURE ORDERING PROVIDER [id number] 11/09/2020 06:08 EDT CR Chest Portable DAWIT HEIN MATTHEW R. CPT code 38889 Reason For Exam (CR Chest Portable) Shortness of breath Report CLINICAL INFORMATION: Shortness of breath. CHEST X-RAY, PORTABLE, 0535 hours: An AP portable view is compared to the prior examination of the previous day. The endotracheal and endogastric tubes have been removed. There is no change in the position of the right internal jugular [place] catheter or mediastinal chest tube. The left lower hemithorax chest tubes is changed in position. The cardiac silhouette is mildly enlarged but unchanged. There is increased density in the right lower hemithorax which could be increased subpulmonic effusion. There is increased decreased left lung base atelectasis. No other acute process or interval change. IMPRESSION: 1. Altered position of the left lower hemithorax chest tube and interval removal of endotracheal and endogastric tubes. 2. Increased density in the right lower hemithorax which could be increased right hemidiaphragm elevation or increased subpulmonic effusion. 3. No evidence of other acute process or interval change except for increased left lung base atelectasis. Report Dictated on --- Final --- Dictated: 11/09/2020 9:01 am Dictating Physician: MD ARNOLD HARLAN Signed Date and Time: 11/09/2020 9:07 am Signed by: MD ARNOLD HARLAN Transcribed Date and Time: 11/09/2020 9:01 [facility] Work Phone: [facility], [facility] Incoming Radiology Results From [facility] - 11/09/2020 9:08 AM EDT [facility]: [id number]iology ACCESSION EXAM DATE/TIME PROCEDURE ORDERING PROVIDER [id number] 11/09/2020 06:08 EDT CR Chest Portable DAWIT HEIN MATTHEW R. CPT code 99952 Reason For Exam (CR Chest Portable) Shortness of breath Report CLINICAL INFORMATION: Shortness of breath. CHEST X-RAY, PORTABLE, 0535 hours: An AP portable view is compared to the prior examination of the previous day. The endotracheal and endogastric tubes have been removed. There is no change in the position of the right internal jugular [place] catheter or mediastinal chest tube. The left lower hemithorax chest tubes is changed in position. The cardiac silhouette is mildly enlarged but unchanged. There is increased density in the right lower hemithorax which could be increased subpulmonic effusion. There is increased decreased left lung base atelectasis. No other acute process or interval change. IMPRESSION: 1. Altered position of the left lower hemithorax chest tube and interval removal of endotracheal and endogastric tubes. 2. Increased density in the right lower hemithorax which could be increased right hemidiaphragm elevation or increased subpulmonic effusion. 3. No evidence of other acute process or interval change except for increased left lung base atelectasis. Report Dictated on --- Final --- Dictated: 11/09/2020 9:01 am Dictating Physician: MD ARNOLD HARLAN Signed Date and Time: 11/09/2020 9:07 am Signed by: MD ARNOLD HARLAN Transcribed Date and Time: 11/09/2020 9:01 [facility] Work Phone: [facility] Work Phone: Arterial Blood Gaseson 07-07 -2021 CO2 [Moles/Vol] 25.5 mmol/L Normal 23.0-27.0 [facility] Comment on above: Performed By: #### B MP3M, TROPN, MG3, HEMDF, PHOS3 #### [place] [address], [place] HCO3 (Bld) [Moles/Vol] 24.2 mmol/L Normal 21.0-25.0 [facility] Comment on above: Performed By: #### B MP3M, TROPN, MG3, HEMDF, PHOS3 #### [place] [address], [place] Hemoglobin (Bld) [Mass/Vol] 8.1 g/dL Normal ScreenOnly [facility] Comment on above: Performed By: #### B MP3M, TROPN, MG3, HEMDF, PHOS3 #### [place] [address] [address] [place], [place] Oxygen (Bld) [Partial pressure] 272.1 mm[Hg] High 80.0-100.0 [facility] Comment on above: Performed By: #### B MP3M, TROPN, MG3, HEMDF, PHOS3 #### [address] [address] [place], [place] Oxygen saturation in Blood 98.7 % Normal 95.0-100.0 [facility] Comment on above: Performed By: #### B MP3M, TROPN, MG3, HEMDF, PHOS3 #### [address] [place], [place] pCO2 42.2 mm[Hg] Normal 35.0-45.0 [facility] Comment on above: Performed By: #### B MP3M, TROPN, MG3, HEMDF, PHOS3 #### [address] pH 7.376 Normal 7.350-7.450 [facility] Comment on above: Performed By: #### B MP3M, TROPN, MG3, HEMDF, PHOS3 #### [place], [place] Std Base Excess -1.0 mmol/L Normal -3.0-3.0 [facility] Comment on above: Performed By: #### B MP3M, TROPN, MG3, HEMDF, PHOS3 #### [address], [place] FIO2 No data Normal [facility] Comment on above: Performed By: #### B MP3M, TROPN, MG3, HEMDF, PHOS3 #### [address], [place] Basic Metabolic Panelon 07-0 -2020 Anion gap [Moles/Vol] 9 mmol/L Normal 3-13 [facility] Comment on above: Performed By: #### B MP3M, TROPN, MG3, HEMDF, PHOS3 #### [address] [address] [place], [place] CO2 [Moles/Vol] 22 mmol/L Normal 22-30 [facility] Comment on above: Performed By: #### B MP3M, TROPN, MG3, HEMDF, PHOS3 #### [address] [address] [place], [place] Creatinine [Mass/Vol] 0.63 mg/dL Normal 0.52-1.25 [facility] Comment on above: Performed By: #### B MP3M, TROPN, MG3, HEMDF, PHOS3 #### [address], [place] GFR/1.73 sq M.predicted among blacks MDRD (S/P/Bld) [Vol rate/Area] mL/min/{1.73_m2} Normal >60 [facility] Comment on above: Performed By: #### B MP3M, TROPN, MG3, HEMDF, PHOS3 #### [address] [address] [place], [place] GFR/1.73 sq M.predicted among non-blacks MDRD (S/P/Bld) [Vol rate/Area] 89.4 mL/min/{1.73_m2} Normal >60 [facility] Comment on above: Result Comment: KDIG O guidelines provide the following GFR categories: Stage GFR(ml/min/1.73 m2) Terms G1 >=90 Normal or high G2 60-89 Mildly decreased* G3a 45-59 Mildly to moderately decreased G3b 30-44 Moderately to severely decreased G4 15-29 Severely decreased G5 <15 Kidney failure *Relative to young adult level. In the absence of evidence of kidney damage, neither GFR category G1 nor G2 fulfill the criteria for CKD. The CKD-EPI equation is validated in individuals 18 years of age and older. Currently the best equation for estimating glomerular filtration rate (GFR) from serum creatinine in children is the Bedside Morales equation. It is less accurate in patients with extremes of muscle mass, restriction of dietary protein, ingestion of creatine, extra-renal metabolism of creatinine, or treatment with medications that affect renal tubular creatinine secretion. Performed By: #### B MP3M, TROPN, MG3, HEMDF, PHOS3 #### [address] Urea nitrogen [Mass/Vol] 16 mg/dL Normal 7-20 [facility] Comment on above: Performed By: #### B MP3M, TROPN, MG3, HEMDF, PHOS3 #### [address] Chloride [Moles/Vol] 109 mmol/L High 98-107 [facility] Comment on above: Performed By: #### B MP3M, TROPN, MG3, HEMDF, PHOS3 #### [address] Potassium [Moles/Vol] 3.1 mmol/L Low 3.5-5.1 [facility] Comment on above: Performed By: #### B MP3M, TROPN, MG3, HEMDF, PHOS3 #### [address] Sodium [Moles/Vol] 140 mmol/L Normal 135-145 [facility] Comment on above: Performed By: #### B MP3M, TROPN, MG3, HEMDF, PHOS3 #### [address] Calcium [Mass/Vol] 9.2 mg/dL Normal 8.4-10.4 [facility] Comment on above: Performed By: #### B GLU #### [facility] [address], [place] Glucose [Mass/Vol] 134 mg/dL High 70-100 [facility] Comment on above: Performed By: #### B GLU #### [facility] [address], [place] Urea nitrogen [Mass/Vol] 20 mg/dL Normal 7-20 [facility] Comment on above: Performed By: #### B GLU #### [facility] [address], [place] Anion gap [Moles/Vol] 9 mmol/L Normal 3-13 [facility] Comment on above: Performed By: #### B GLU #### [facility] [address], [place] CO2 [Moles/Vol] 23 mmol/L Normal 22-30 [facility] Comment on above: Performed By: #### B GLU #### [facility] [address], [place] Creatinine [Mass/Vol] 0.60 mg/dL Normal 0.52-1.25 [facility] Comment on above: Performed By: #### B GLU #### [facility] [address], [place] eGFR OTHER > 90.0 Normal >60 [facility] Comment on above: Result Comment: KDIG O guidelines provide the following GFR categories: Stage GFR(ml/min/1.73 m2) Terms G1 >=90 Normal or high G2 60-89 Mildly decreased* G3a 45-59 Mildly to moderately decreased G3b 30-44 Moderately to severely decreased G4 15-29 Severely decreased G5 <15 Kidney failure *Relative to young adult level. In the absence of evidence of kidney damage, neither GFR category G1 nor G2 fulfill the criteria for CKD. The CKD-EPI equation is validated in individuals 18 years of age and older. Currently the best equation for estimating glomerular filtration rate (GFR) from serum creatinine in children is the Bedside Morales equation. It is less accurate in patients with extremes of muscle mass, restriction of dietary protein, ingestion of creatine, extra-renal metabolism of creatinine, or treatment with medications that affect renal tubular creatinine secretion. Performed By: #### B GLU #### [place], [place] GFR/1.73 sq M.predicted among blacks MDRD (S/P/Bld) [Vol rate/Area] mL/min/{1.73_m2} Normal >60 [facility] Comment on above: Performed By: #### B GLU #### [address] [place], [place] Chloride [Moles/Vol] 103 mmol/L Normal 98-107 [facility] Comment on above: Performed By: #### B GLU #### [address], [place] Potassium [Moles/Vol] 3.9 mmol/L Normal 3.5-5.1 [facility] Comment on above: Performed By: #### B GLU #### [address], [place] Sodium [Moles/Vol] 136 mmol/L Normal 135-145 [facility] Comment on above: Performed By: #### B GLU #### [place] [address], [place] Basic Metabolic PanelOrdered By: Zulma Mujica on 11-08-2020 Calcium [Mass/Vol] 8.6 mg/dL Normal 8.4-10.4 [facility] Work Phone: Comment on above: Performed By: #### B MP3M, TROPN, MG3, HEMDF, PHOS3 #### [address] [place] [address], [place] Glucose [Mass/Vol] 87 mg/dL Normal 70-100 [facility] Work Phone: Comment on above: Performed By: #### B MP3M, TROPN, MG3, HEMDF, PHOS3 #### [place] [address], [place] Anion gap [Moles/Vol] 9 mmol/L 3 - 13 mmol/L [facility] Work Phone: [phone] Chloride [Moles/Vol] 109 mmol/L High 98 - 10 7 mmol/L [facility] Work Phone: [phone] CO2 [Moles/Vol] 22 mmol/L 22 - 30 mmol/L [facility] Work Phone: [phone] Creatinine [Mass/Vol] 0.63 mg/dL 0.52 - 1.25 mg/dL [facility] Work Phone: [phone] EGFR IF NonAfrican Czech 89.4 mL/min >60 [facility] Work Phone: [phone] Comment on above: KDIGO guidelines pro vide the following GFR categories: Stage GFR(ml/min/1.73 m2) Terms G1 >=90 Normal or high G2 60-89 Mildly decreased* G3a 45-59 Mildly to moderately decreased G3b 30-44 Moderately to severely decreased G4 15-29 Severely decreased G5 <15 Kidney failure *Relative to young adult level. In the absence of evidence of kidney damage, neither GFR category G1 nor G2 fulfill the criteria for CKD. The CKD-EPI equation is validated in individuals 18 years of age and older. Currently the best equation for estimating glomerular filtration rate (GFR) from serum creatinine in children is the Bedside Morales equation. It is less accurate in patients with extremes of muscle mass, restriction of dietary protein, ingestion of creatine, extra-renal metabolism of creatinine, or treatment with medications that affect renal tubular creatinine secretion. GFR/1.73 sq M.predicted among blacks MDRD (S/P/Bld) [Vol rate/Area] mL/min/{1.73_m2} >60 mL/min [facility] Work Phone: [phone] Potassium [Moles/Vol] 3.1 mmol/L Low 3.5 - 5.1 mmol/L [facility] Work Phone: [phone] Sodium [Moles/Vol] 140 mmol/L 135 - 145 mmol/L [facility] Work Phone: [phone] Urea nitrogen (BldV) [Mass/Vol] 16 mg/dL 7 - 20 mg/dL [facility] Work Phone: [phone] Basic Metabolic Panel w/ Ref [place] to MGOrdered By: Peggy Henry on 11-08-2020 Anion gap [Moles/Vol] 9 mmol/L 3 - 13 mmol/L [facility] Work Phone: [phone] Calcium [Mass/Vol] 9.2 mg/dL 8.4 - 10. 4 mg/dL [facility] Work Phone: [phone] Chloride [Moles/Vol] 103 mmol/L 98 - 10 7 mmol/L [facility] Work Phone: [phone] CO2 [Moles/Vol] 23 mmol/L 22 - 30 mmol/L [facility] Work Phone: [phone] Creatinine [Mass/Vol] 0.6 mg/dL 0.52 - 1.25 mg/dL [facility] Work Phone: [phone] EGFR IF NonAfrican Czech >90.0 >60 mL/min [facility] Work Phone: Comment on above: KDIGO guidelines pro vide the following GFR categories: Stage GFR(ml/min/1.73 m2) Terms G1 >=90 Normal or high G2 60-89 Mildly decreased* G3a 45-59 Mildly to moderately decreased G3b 30-44 Moderately to severely decreased G4 15-29 Severely decreased G5 <15 Kidney failure *Relative to young adult level. In the absence of evidence of kidney damage, neither GFR category G1 nor G2 fulfill the criteria for CKD. The CKD-EPI equation is validated in individuals 18 years of age and older. Currently the best equation for estimating glomerular filtration rate (GFR) from serum creatinine in children is the Bedside Morales equation. It is less accurate in patients with extremes of muscle mass, restriction of dietary protein, ingestion of creatine, extra-renal metabolism of creatinine, or treatment with medications that affect renal tubular creatinine secretion. GFR/1.73 sq M.predicted among blacks MDRD (S/P/Bld) [Vol rate/Area] mL/min/{1.73_m2} >60 mL/min [facility] Work Phone: Glucose [Mass/Vol] 134 mg/dL High 70 - 100 mg/dL [facility] Work Phone: Interpretation and review of laboratory results Abnormal [facility] Work Phone: Potassium [Moles/Vol] 3.9 mmol/L 3.5 - 5.1 mmol/L [facility] Work Phone: 1 Sodium [Moles/Vol] 136 mmol/L 135 - 145 mmol/L [facility] Work Phone: Urea nitrogen (BldV) [Mass/Vol] 20 mg/dL 7 - 20 mg/dL [facility] Work Phone: Blood Gas, ArterialOrdered B y: Zulma mace 11-08-2020 Base Excess, Arterial -1.0 mmol/L -3.0 - 3.0 mmol/L [facility] Work Phone: CO2 [Moles/Vol] 25.5 mmol/L 23.0 - 27.0 mmol/L [facility] Work Phone: FIO2 Arterial No data [facility] Work Phone: HCO3 (Bld) [Moles/Vol] 24.2 mmol/L 21.0 - 25.0 mmol/L [facility] Work Phone: Hemoglobin (Bld) [Mass/Vol] 8.1 g/dL ScreenOnly [facility] Work Phone: Interpretation and review of laboratory results Abnormal [facility] Work Phone: Oxygen saturation in Blood 98.7 % 95.0 - 100.0 % [facility] Work Phone: pCO2, Arterial 42.2 mm[Hg] 35.0 - 45.0 mm[Hg] [facility] Work Phone: pH, Arterial 7.376 [facility] Work Phone: pO2, Arterial 272.1 mm[Hg] High 80.0 - 100.0 mm[Hg] [facility] Work Phone: Test Performed by [facility], [address] [place] [id number] [facility] Work Phone: [facility] Work Phone: CBCOrdered By: Zulma millan 11-08-2020 Hematocrit (Bld) [Volume fraction] 23.4 % Low 35.0 - 47.0 % [facility] Work Phone: Hemoglobin.gastrointes tinal spec 1 Ql (Stl) 7.6 g/dL Low 11.7 - 16.0 g/dL [facility] Work Phone: Interpretation and review of laboratory results Abnormal [facility] Work Phone: MCH (RBC) [Entitic mass] 27.0 pg 26.0 - 34.0 pg [facility] Work Phone: MCHC (RBC) [Mass/Vol] 32.5 % 32.0 - 36.0 % [facility] Work Phone: MCV (RBC) [Entitic vol] 83.2 fL 79.0 - 98.0 fL [facility] Work Phone: Platelet distribution width (Bld) [Ratio] 17.6 % High 11.5 - 14.5 % [facility] Work Phone: Platelet mean volume (Bld) [Entitic vol] 9.2 fL 7.4 - 10.4 fL [facility] Work Phone: Platelets (Bld) [#/Vol] 123 10*3/uL Low 140 - 440 10*3/uL [facility] Work Phone: RBC (Bld) [#/Vol] 2.82 10*6/uL Low 3.80 - 5.2 0 10*6/uL [facility] Work Phone: WBC (Bld) [#/Vol] 13.2 10*3/uL High 3.6 - 10.7 10*3/uL [facility] Work Phone: Test Performed by [facility], [address] [place] [address] [facility] Work Phone: [facility] Work Phone: CBC Auto DifferentialOrdered By: Peggy Henry on 11-08-2020 Absolute Baso # 0.0 10*3/uL 0.0 - 0.2 10*3/uL [facility] Work Phone: Absolute Neut # 4.1 10*3/uL 1.8 - 7.0 10*3/uL [facility] Work Phone: Basophils/100 WBC (Bld) 0.5 % 0.0 - 2.0 % [facility] Work Phone: 1 Eosinophils (Bld) [#/Vol] 0.5 10*3/uL 0.0 - 0.5 10*3/uL [facility] Work Phone: 1 Eosinophils/100 WBC (Bld) 6.9 % High 1.0 - 6.0 % [facility] Work Phone: Granulocytes/100 WBC (Bld) 54.9 % 40.0 - 80.0 % [facility] Work Phone: 1 Hematocrit (Bld) [Volume fraction] 35.2 % 35.0 - 47.0 % [facility] Work Phone: Hemoglobin.gastrointes tinal spec 1 Ql (Stl) 11.5 g/dL Low 11.7 - 16.0 g/dL [facility] Work Phone: [phone] Interpretation and review of laboratory results Abnormal [facility] Work Phone: 1 Lymphocytes (Bld) [#/Vol] 2.1 10*3/uL 1.0 - 4.3 10*3/uL [facility] Work Phone: Lymphocytes/100 WBC (Bld) 28.0 % 20.0 - 40.0 % [facility] Work Phone: MCH (RBC) [Entitic mass] 27.7 pg 26.0 - 34.0 pg [facility] Work Phone: MCHC (RBC) [Mass/Vol] 32.7 % 32.0 - 36.0 % [facility] Work Phone: MCV (RBC) [Entitic vol] 84.8 fL 79.0 - 98.0 fL [facility] Work Phone: Monocytes (Bld) [#/Vol] 0.7 10*3/uL 0.0 - 0.8 10*3/uL [facility] Work Phone: 22 Monocytes/100 WBC (Bld) 9.7 % 2.0 - 10.0 % [facility] Work Phone: [phone] Platelet distribution width (Bld) [Ratio] 19.2 % High 11.5 - 14.5 % [facility] Work Phone: [phone] Platelet mean volume (Bld) [Entitic vol] 10.8 fL High 7.4 - 10.4 fL [facility] Work Phone: [phone] Platelets (Bld) [#/Vol] 219 10*3/uL 140 - 440 10*3/uL [facility] Work Phone: [phone] RBC (Bld) [#/Vol] 4.15 10*6/uL 3.80 - 5.2 0 10*6/uL [facility] Work Phone: [phone] WBC (Bld) [#/Vol] 7.5 10*3/uL 3.6 - 10.7 10*3/uL [facility] Work Phone: [phone] Test Performed by [facility], [address] [place] [id number] [facility] Work Phone: [phone] [facility] Work Phone: [phone] CR Chest Portableon 11-09-19 21 CR Chest Portable Patient Name: GENNY VARELA Diagnostic Radiology ACCESSION EXAM DATE/TIME PROCEDURE ORDERING PROVIDER [id number] 11/08/2020 20:45 EDT CR Chest Portable DAWIT HEIN MATTHEW R. CPT code 64246 Reason For Exam (CR Chest Portable) ETT placement Report PORTABLE CHEST: INDICATION: Postop COMPARISON: 11/03/2020 Obtained at 2009 hours. A single portable AP radiograph of the chest was obtained. The heart is normal in size. The mediastinal silhouette is normal. There are changes associated with recent open heart surgery. Bilateral chest tubes are present as is a mediastinal tube. There is no pneumothorax. There is left basal atelectasis. There is no pleural thickening. The osseous structures are unremarkable. A right internal jugular [place] catheter is present with the tip overlying the main pulmonary artery. IMPRESSION: Postoperative changes. Atelectasis of the left lung base. Report Dictated on Final Dictated: 11/08/2020 9:02 pm Dictating Physician: DO HANNA ALFRED Signed Date and Time: 11/08/2020 9:03 pm Signed by: DO HANNA ALFRED Transcribed Date and Time: 11/08/2020 9:02 Normal [facility] Calcium, IonizedOrdered By: Zulma Mujica on 11-08-2020 Ionized Ca 4.90 mg/dL 4.30 - 5.20 mg/dL [facility] Work Phone: pH (Bld) 7.36 [pH] [facility] Work Phone: Test Performed by [facility], [address] [place] [id number] [place] [address] Work Phone: [facility] Work Phone: Calcium,Ionizedon 11-08-2020 Ionized Ca,Measured 4.90 mg/dL Normal 4.30-5.20 [facility] Comment on above: Performed By: #### B GLU #### [address] [id number] pH, Ionized Calcium 7.36 Normal 7.31-7.46 [facility] Comment on above: Performed By: #### B GLU #### [address] [address] Echo 2D/3D HUMBERTO w/wo Contrast on 11-08-2020 Echo 2D/3D HUMBERTO w/wo Contrast Patient Name: GENNY VARELA Ultrasound ACCESSION EXAM DATE/TIME PROCEDURE ORDERING PROVIDER [id number] 11/08/2020 14:37 EDT Echo 2D/3D HUMBERTO w/wo ZULMA MUJICA Reason For Exam (Echo 2D/3D HUMBERTO w/wo Contrast) CABG Report TRANSESOPHAGEAL ECHOCARDIOGRAM Intraoperative-Pre Pump Only PATIENT: Genny Varela STUDY DATE: 11/08/2020 : 1950 AGE: 70 HT/WT: 152.4 cm (60 64.1 kg (141 in) lb) GENDER: F BP: 152 / 88 LOCATION: [facility] PATIENT Inpatient main STATUS: *ORDERING PHYSICIAN: * Zulma Mujica *READING PHYSICIAN: * Abdiel Biswas, *COMMERCIAL ROOFING ESTIMATOR: * Xiao Johnston MD [facility] INDICATIONS: CABG, CAD. CONCLUSIONS SUMMARY: 1. Left ventricle: Systolic function is normal. The estimated ejection fraction is 55%. 2. No significant valvular abnormalities. STUDY DATA: Operative transesophageal echocardiogram. Procedure: The procedure was performed with the patient intubated under general anesthesia on the operating table. A complete pre-operative HUMBERTO was performed. Image quality was excellent. A transesophageal probe was inserted by the anesthesiologistwithout difficulty. Complete 2D, complete spectral Doppler, and color flow Doppler images were acquired and archived for permanent storage and are available for subsequent review. Study status: Routine. Patient status: Inpatient. Location: Operating room. Administered medications: Etomidate. FINDINGS LEFT VENTRICLE: The cavity size is normal. Systolic function is normal. The estimated ejection fraction is 55%. RIGHT VENTRICLE: The cavity size is normal. Systolic function is normal. VENTRICULAR SEPTUM: There is no evidence of a ventricular septal Ultrasound Report defect. LEFT ATRIUM: The atrium is normal in size. There is no evidence of a thrombus in the atrial cavity or appendage. No spontaneous echo contrast is observed. The appendage is of normal size. Emptying velocity is normal. RIGHT ATRIUM: The atrium is normal in size. ATRIAL SEPTUM: No evidence of patent foramen ovale or atrial septal defect. Atrial septum mobile with every beat but not aneurysmal. No shunt by CFD. MITRAL VALVE: Mildly thickened annulus. Structurally normal valve. Leaflet separation is normal. Doppler: There is no significant regurgitation. AORTIC VALVE: Structurally normal valve. Trileaflet. Cusp separation is normal. Doppler: There is no stenosis. There is trivial, less than 1+ regurgitation. TRICUSPID VALVE: Structurally normal valve. Leaflet separation is normal. Doppler: There is trivial, less than 1+ regurgitation. PULMONIC VALVE: No thickening. Cusp separation is normal. Doppler: There is trivial, less than 1+ regurgitation. AORTA: There is no atheroma. There is no evidence for aneurysm. There is no evidence for dissection. Aortic root: The aortic root is not dilated. PERICARDIUM: There is no pericardial effusion. Electronically signed by Abdiel Biswas MD 11/19/2020 15:03 Prior Signatures: Final Dictated: 11/19/2020 3:04 pm Dictating Physician: ABDIEL BISWAS Signed Date and Time: 11/19/2020 3:04 pm Signed by: ABDIEL BISWAS Normal [facility] Glucose,Bedsideon 11-08-2020 Glucose [Mass/Vol] 146 mg/dL High 70-100 [facility] Comment on above: Result Comment: Test performed by glucose meter. Results may be 10%-15% lower than serum/plasma values. (CLIA ID [id number]) Performed By: #### B GLU #### [facility] [address] [place] [id number] Glucose [Mass/Vol] 126 mg/dL High 70-100 [facility] Comment on above: Result Comment: Test performed by glucose meter. Results may be 10%-15% lower than serum/plasma values. (CLIA ID [id number]) Performed By: #### M G3, HEMDF, BMP3M, PHOS3 #### [facility] [address], [place] Glucose [Mass/Vol] 95 mg/dL Normal 70-100 [facility] Comment on above: Result Comment: Test performed by glucose meter. Results may be 10%-15% lower than serum/plasma values. (CLIA ID [id number]) Performed By: #### M G3, HEMDF, BMP3M, PHOS3 #### [place] [address], [place] Hemogramon 11-08-2020 Erythrocyte distribution width (RBC) [Ratio] 17.6 % High 11.5-14.5 [facility] Comment on above: Performed By: #### B MP3M, TROPN, MG3, HEMDF, PHOS3 #### [place] [address], [place] Hematocrit (Bld) [Volume fraction] 23.4 % Low 35.0-47.0 [facility] Comment on above: Performed By: #### B MP3M, TROPN, MG3, HEMDF, PHOS3 #### [place] [address], [place] Hemoglobin (Bld) [Mass/Vol] 7.6 g/dL Low 11.7-16.0 [facility] Comment on above: Performed By: #### B MP3M, TROPN, MG3, HEMDF, PHOS3 #### [place] [address], [place] MCH (RBC) [Entitic mass] 27.0 pg Normal 26.0-34.0 [facility] Comment on above: Performed By: #### B MP3M, TROPN, MG3, HEMDF, PHOS3 #### [place] [address], [place] MCHC 32.5 % Normal 32.0-36.0 [facility] Comment on above: Performed By: #### B MP3M, TROPN, MG3, HEMDF, PHOS3 #### [place] [address], [place] MCV (RBC) [Entitic vol] 83.2 fL Normal 79.0-98.0 [facility] Comment on above: Performed By: #### B MP3M, TROPN, MG3, HEMDF, PHOS3 #### [place] [address], [place] Platelet mean volume (Bld) [Entitic vol] 9.2 fL Normal 7.4-10.4 [facility] Comment on above: Performed By: #### B MP3M, TROPN, MG3, HEMDF, PHOS3 #### [place] [address], [place] Platelets (Bld) [#/Vol] 123 10*3/uL Low 140-440 [facility] Comment on above: Performed By: #### B MP3M, TROPN, MG3, HEMDF, PHOS3 #### [place] [address], [place] RBC (Bld) [#/Vol] 2.82 10*6/uL Low 3.80-5.20 [facility] Comment on above: Performed By: #### B MP3M, TROPN, MG3, HEMDF, PHOS3 #### [place] [address], [place] WBC (Bld) [#/Vol] 13.2 10*3/uL High 3.6-10.7 [facility] Comment on above: Performed By: #### B MP3M, TROPN, MG3, HEMDF, PHOS3 #### [place] [address], [place] Hemogram w/ Autodiffon 11-08 Abs Baso Cnt 0.0 10*3/uL Normal 0.0-0.2 [facility] Comment on above: Performed By: #### B GLU #### [place] [address], [place] Abs Neutrophile Cnt 4.1 10*3/uL Normal 1.8-7.0 [facility] Comment on above: Performed By: #### B GLU #### [place] [address], [place] Basophils/100 WBC (Bld) 0.5 % Normal 0.0-2.0 [facility] Comment on above: Performed By: #### B GLU #### [facility] [address], [place] Eosinophils (Bld) [#/Vol] 0.5 10*3/uL Normal 0.0-0.5 [facility] Comment on above: Performed By: #### B GLU #### [facility] [address], [place] Eosinophils/100 WBC (Bld) 6.9 % High 1.0-6.0 [facility] Comment on above: Performed By: #### B GLU #### [place] [address], [place] Erythrocyte distribution width (RBC) [Ratio] 19.2 % High 11.5-14.5 [facility] Comment on above: Performed By: #### B GLU #### [place] [address], [place] Granulocytes/100 WBC (Bld) 54.9 % Normal 40.0-80.0 [facility] Comment on above: Performed By: #### B GLU #### [place] [address], [place] Hematocrit (Bld) [Volume fraction] 35.2 % Normal 35.0-47.0 [facility] Comment on above: Performed By: #### B GLU #### [place] [address], [place] Hemoglobin (Bld) [Mass/Vol] 11.5 g/dL Low 11.7-16.0 [facility] Comment on above: Performed By: #### B GLU #### [place] [address], [place] Lymphocytes (Bld) [#/Vol] 2.1 10*3/uL Normal 1.0-4.3 [facility] Comment on above: Performed By: #### B GLU #### [place] [address], [place] Lymphocytes/100 WBC (Bld) 28.0 % Normal 20.0-40.0 [facility] Comment on above: Performed By: #### B GLU #### [facility] [address], [place] MCH (RBC) [Entitic mass] 27.7 pg Normal 26.0-34.0 [facility] Comment on above: Performed By: #### B GLU #### [facility] [address], [place] MCHC 32.7 % Normal 32.0-36.0 [facility] Comment on above: Performed By: #### B GLU #### [place] [address], [place] MCV (RBC) [Entitic vol] 84.8 fL Normal 79.0-98.0 [facility] Comment on above: Performed By: #### B GLU #### [place] [address], [place] Monocytes (Bld) [#/Vol] 0.7 10*3/uL Normal 0.0-0.8 [facility] Comment on above: Performed By: #### B GLU #### [place] [address], [place] Monocytes/100 WBC (Bld) 9.7 % Normal 2.0-10.0 [facility] Comment on above: Performed By: #### B GLU #### [place] [address], [place] Platelet mean volume (Bld) [Entitic vol] 10.8 fL High 7.4-10.4 [facility] Comment on above: Performed By: #### B GLU #### [place] [address], [place] Platelets (Bld) [#/Vol] 219 10*3/uL Normal 140-440 [facility] Comment on above: Performed By: #### B GLU #### [place] [address], [place] RBC (Bld) [#/Vol] 4.15 10*6/uL Normal 3.80-5.20 [facility] Comment on above: Performed By: #### B GLU #### [facility] [address], [place] WBC (Bld) [#/Vol] 7.5 10*3/uL Normal 3.6-10.7 [facility] Comment on above: Performed By: #### B GLU #### [place] [address], [place] Laboratory - Blood bankOrder ed By: Peggy Henry on 11-08-2020 ABO and Rh group Nom (Bld) [address] [facility] Work Phone: Leukodepleted Red Cellson Leukodepleted Red Cells Leukodepleted Red Cells: [id number] transfused 11/08/20 16:07 [facility] [place] Unit Blood Type: A Unit Blood Rh: POS Blood Product Code: AS1 Unit Number: [id number] Unit Status: transfused Barcoded Unit Number: =[id number] Barcoded Product Code: = Barcoded ABO/Rh: =%6200 Unit Expiration: Unit Volume Transfused: 300 Unit Transfusion Start Date/Time: Leukodepleted Red Cells: [id number] transfused 11/08/20 16:07 [facility] [place] Unit Blood Type: A Unit Blood Rh: POS Blood Product Code: AS1 Unit Number: [id number] Unit Status: transfused Barcoded Unit Number: =[id number] Barcoded Product Code: = Barcoded ABO/Rh: =%6200 Unit Expiration: Unit Volume Transfused: 300 Unit Transfusion Start Date/Time: Normal [facility] Comment on above: Performed By: #### M G3, HEMDF, BMP3M, PHOS3 #### [facility] [address], [place] MagnesiumOrdered By: Zulma pérez on 11-08-2020 Magnesium [Mass/Vol] 3.7 mg/dL High 1.6-2.3 [facility] Work Phone: Comment on above: Performed By: #### B MP3M, TROPN, MG3, HEMDF, PHOS3 #### [facility] [address] [place] [address] Magnesiumon 11-08-2020 Magnesium [Mass/Vol] 1.8 mg/dL Normal 1.6-2.3 [facility] Comment on above: Performed By: #### M G3, HEMDF, BMP3M, PHOS3 #### [facility] [address] [place] [address] MagnesiumOrdered By: Munira Henry on 11-08-2020 Magnesium [Mass/Vol] 1.8 mg/dL 1.6 - 2 .3 mg/dL [facility] Work Phone: [phone] Panel InformationOrdered By: Zulma Mujica on 11-08-2020 Interpretation and review of laboratory results Abnormal [facility] Work Phone: [phone] Test Performed by [facility], [address] [place] [address] [facility] Work Phone: [phone] [facility] Work Phone: [phone] Panel InformationOrdered By: Peggy Henry on 11-08-2020 Test Performed by [facility] [employer] [facility], [facility] [place] [address] [facility] Work Phone: [phone] [facility] Work Phone: [phone] OPERATIVE REPORTOrdered By: 3m Scanning on 11-08-2020 [facility] Work Phone: [phone] POCT GlucoseOrdered By: Zulma Mujica on 11-08-2020 Glucose [Mass/Vol] 128 mg/dL High 70 - 100 mg/dL [facility] Work Phone: [phone] Comment on above: Test performed by gl ucose meter. Results may be 10%-15% lower than serum/plasma values. (CLIA ID [id number]) Interpretation and review of laboratory results Abnormal [facility] Work Phone: [phone] Test Performed by [facility], [facility] [place] [address] [facility] Work Phone: [phone] [facility] Work Phone: [phone] Glucose [Mass/Vol] 138 mg/dL High 70 - 100 mg/dL [facility] Work Phone: [phone] Comment on above: Test performed by gl ucose meter. Results may be 10%-15% lower than serum/plasma values. (CLIA ID [id number]) Interpretation and review of laboratory results Abnormal [facility] Work Phone: 1 Test Performed by [facility], [place] [address] [facility] Work Phone: [phone] [facility] Work Phone: 1 Glucose [Mass/Vol] 146 mg/dL High 70 - 100 mg/dL [facility] Work Phone: 1 Comment on above: Test performed by gl ucose meter. Results may be 10%-15% lower than serum/plasma values. (CLIA ID [id number]) Interpretation and review of laboratory results Abnormal [facility] Work Phone: 1 Test Performed by [facility], [facility] [place] [address] [facility] Work Phone: [phone]) [facility] Work Phone: [phone] Glucose [Mass/Vol] 126 mg/dL High 70 - 100 mg/dL [facility] Work Phone: 1 Comment on above: Test performed by gl ucose meter. Results may be 10%-15% lower than serum/plasma values. (CLIA ID [id number]) Interpretation and review of laboratory results Abnormal [facility] Work Phone: 1 Test Performed by [facility], [facility] [place] [address] [facility] Work Phone: [phone]) [facility] Work Phone: 1 Glucose [Mass/Vol] 95 mg/dL 70 - 100 mg/dL [facility] Work Phone: 1 Comment on above: Test performed by gl ucose meter. Results may be 10%-15% lower than serum/plasma values. (CLIA ID [id number]) Test Performed by [facility], [place] [address] [facility] Work Phone: 1 [facility] Work Phone: [phone] PREPARE RBC (CROSSMATCH), 2 UnitsOrdered By: Peggy Henry on 11-08-2020 Blood product unit ID (Dose) [#] [id number] [facility] Work Phone: [phone] Blood product unit ID (Dose) [#] [id number] [facility] Work Phone: [phone] Dispense Status Blood Bank transfused [facility] Work Phone: [phone] Expiration Date [facility] Work Phone: [phone] Product Code Blood Bank [id number] [facility] Work Phone: [phone] [facility] Work Phone: [phone] [facility] Work Phone: [phone] PhosphorusOrdered By: Zulma prabhakar on 11-08-2020 Phosphate [Mass/Vol] 3.3 mg/dL Normal 2.5-4.5 [facility] Work Phone: [phone] Comment on above: Performed By: #### B MP3M, TROPN, MG3, HEMDF, PHOS3 #### [facility] [employer] [address] [address] Phosphoruson 11-08-2020 Phosphate [Mass/Vol] 3.9 mg/dL Normal 2.5-4.5 [facility] Comment on above: Performed By: #### M G3, HEMDF, BMP3M, PHOS3 #### [address] [address] PhosphorusOrdered By: Elias Henry on 11-08-2020 Phosphate [Mass/Vol] 3.9 mg/dL 2.5 - 4 .5 mg/dL [facility] Work Phone: [phone] XR CHEST PORTABLEOrdered By: Ronen Hein on 11-08-2020 Patient Name: GENNY VARELA Diagnostic Radiology ACCESSION EXAM DATE/TIME PROCEDURE ORDERING PROVIDER [id number] 11/08/2020 20:45 EDT CR Chest Portable DAWIT HEIN MATTHEW R. CPT code 46406 Reason For Exam (CR Chest Portable) ETT placement Report PORTABLE CHEST: INDICATION: Postop COMPARISON: 11/03/2020 Obtained at 2009 hours. A single portable AP radiograph of the chest was obtained. The heart is normal in size. The mediastinal silhouette is normal. There are changes associated with recent open heart surgery. Bilateral chest tubes are present as is a mediastinal tube. There is no pneumothorax. There is left basal atelectasis. There is no pleural thickening. The osseous structures are unremarkable. A right internal jugular [place]-Chivo catheter is present with the tip overlying the main pulmonary artery. IMPRESSION: Postoperative changes. Atelectasis of the left lung base. Report Dictated on --- Final --- Dictated: 11/08/2020 9:02 pm Dictating Physician: DO HANNA ALFRED Signed Date and Time: 11/08/2020 9:03 pm Signed by: DO HANNA ALFRED Transcribed Date and Time: 11/08/2020 9:02 [facility] Work Phone: Onur, Mayelin Incoming Radiology Results From [facility] - 11/08/2020 9:04 PM EDT Patient Name: GENNY VARELA Diagnostic Radiology ACCESSION EXAM DATE/TIME PROCEDURE ORDERING PROVIDER [id number] 11/08/2020 20:45 EDT CR Chest Portable DAWIT HEIN MATTHEW R. CPT code 29245 Reason For Exam (CR Chest Portable) ETT placement Report PORTABLE CHEST: INDICATION: Postop COMPARISON: 11/03/2020 Obtained at 2009 hours. A single portable AP radiograph of the chest was obtained. The heart is normal in size. The mediastinal silhouette is normal. There are changes associated with recent open heart surgery. Bilateral chest tubes are present as is a mediastinal tube. There is no pneumothorax. There is left basal atelectasis. There is no pleural thickening. The osseous structures are unremarkable. A right internal jugular [place]-Chivo catheter is present with the tip overlying the main pulmonary artery. IMPRESSION: Postoperative changes. Atelectasis of the left lung base. Report Dictated on --- Final --- Dictated: 11/08/2020 9:02 pm Dictating Physician: DO HANNA ALFRED Signed Date and Time: 11/08/2020 9:03 pm Signed by: DO HANNA ALFRED Transcribed Date and Time: 11/08/2020 9:02 [facility] Work Phone: [facility] Work Phone: APTTon 11-07-2020 aPTT Coag (Bld) [Time] 25.4 s Normal 20.0-30.5 [facility] Comment on above: Result Comment: NOTE : The therapeutic time for Heparin anticoagulation, based on Xa activity inhibition, is an APTT of 46-80 seconds. Performed By: #### B MP3M, TROPN, MG3, HEMDF, PHOS3 #### [place] [address], [place] APTTOrdered By: Peggy barillas on 11-07-2020 aPTT Coag (Bld) [Time] 25.4 s 20.0 - 30.5 s [facility] Work Phone: Comment on above: NOTE: The therapeuti c time for Heparin anticoagulation, based on Xa activity inhibition, is an APTT of 46-80 seconds. Basic Metabolic Panelon Calcium [Mass/Vol] 9.0 mg/dL Normal 8.4-10.4 [facility] Comment on above: Performed By: #### M G3, HEMDF, BMP3M, PHOS3 #### [place] [address], [place] Anion gap [Moles/Vol] 8 mmol/L Normal 3-13 [facility] Comment on above: Performed By: #### M G3, HEMDF, BMP3M, PHOS3 #### [place] [address], [place] CO2 [Moles/Vol] 22 mmol/L Normal 22-30 [facility] Comment on above: Performed By: #### M G3, HEMDF, BMP3M, PHOS3 #### [place] [address] [place], [place] Creatinine [Mass/Vol] 0.66 mg/dL Normal 0.52-1.25 [facility] Comment on above: Performed By: #### M G3, HEMDF, BMP3M, PHOS3 #### [facility] [address], [place] GFR/1.73 sq M.predicted among blacks MDRD (S/P/Bld) [Vol rate/Area] mL/min/{1.73_m2} Normal >60 [facility] Comment on above: Performed By: #### M G3, HEMDF, BMP3M, PHOS3 #### [place] [address] [place], [place] GFR/1.73 sq M.predicted among non-blacks MDRD (S/P/Bld) [Vol rate/Area] 88.0 mL/min/{1.73_m2} Normal >60 [facility] Comment on above: Result Comment: KDIG O guidelines provide the following GFR categories: Stage GFR(ml/min/1.73 m2) Terms G1 >=90 Normal or high G2 60-89 Mildly decreased* G3a 45-59 Mildly to moderately decreased G3b 30-44 Moderately to severely decreased G4 15-29 Severely decreased G5 <15 Kidney failure *Relative to young adult level. In the absence of evidence of kidney damage, neither GFR category G1 nor G2 fulfill the criteria for CKD. The CKD-EPI equation is validated in individuals 18 years of age and older. Currently the best equation for estimating glomerular filtration rate (GFR) from serum creatinine in children is the Bedside Morales equation. It is less accurate in patients with extremes of muscle mass, restriction of dietary protein, ingestion of creatine, extra-renal metabolism of creatinine, or treatment with medications that affect renal tubular creatinine secretion. Performed By: #### M G3, HEMDF, BMP3M, PHOS3 #### [address] Glucose [Mass/Vol] 132 mg/dL High 70-100 [facility] Comment on above: Performed By: #### M G3, HEMDF, BMP3M, PHOS3 #### [place] [address] [place], [place] Urea nitrogen [Mass/Vol] 19 mg/dL Normal 7-20 [facility] Comment on above: Performed By: #### M G3, HEMDF, BMP3M, PHOS3 #### [facility] [address] [place] [address] Chloride [Moles/Vol] 106 mmol/L Normal 98-107 [facility] Comment on above: Performed By: #### M G3, HEMDF, BMP3M, PHOS3 #### [facility] [address] [place] [address] Potassium [Moles/Vol] 3.7 mmol/L Normal 3.5-5.1 [facility] Comment on above: Performed By: #### M G3, HEMDF, BMP3M, PHOS3 #### [facility] [address], [place] Sodium [Moles/Vol] 136 mmol/L Normal 135-145 [facility] Comment on above: Performed By: #### M G3, HEMDF, BMP3M, PHOS3 #### [place] [address], [place] Basic Metabolic Panel w/ Ref [place] to MGOrdered By: Peggy Henry on 11-07-2020 Anion gap [Moles/Vol] 8 mmol/L 3 - 13 mmol/L [facility] Work Phone: [phone] Calcium [Mass/Vol] 9.0 mg/dL 8.4 - 10. 4 mg/dL [facility] Work Phone: Chloride [Moles/Vol] 106 mmol/L 98 - 10 7 mmol/L [facility] Work Phone: CO2 [Moles/Vol] 22 mmol/L 22 - 30 mmol/L [facility] Work Phone: Creatinine [Mass/Vol] 0.66 mg/dL 0.52 - 1.25 mg/dL [facility] Work Phone: [phone] EGFR IF NonAfrican Czech 88.0 mL/min >60 [facility] Work Phone: Comment on above: KDIGO guidelines pro vide the following GFR categories: Stage GFR(ml/min/1.73 m2) Terms G1 >=90 Normal or high G2 60-89 Mildly decreased* G3a 45-59 Mildly to moderately decreased G3b 30-44 Moderately to severely decreased G4 15-29 Severely decreased G5 <15 Kidney failure *Relative to young adult level. In the absence of evidence of kidney damage, neither GFR category G1 nor G2 fulfill the criteria for CKD. The CKD-EPI equation is validated in individuals 18 years of age and older. Currently the best equation for estimating glomerular filtration rate (GFR) from serum creatinine in children is the Bedside Morales equation. It is less accurate in patients with extremes of muscle mass, restriction of dietary protein, ingestion of creatine, extra-renal metabolism of creatinine, or treatment with medications that affect renal tubular creatinine secretion. GFR/1.73 sq M.predicted among blacks MDRD (S/P/Bld) [Vol rate/Area] mL/min/{1.73_m2} >60 mL/min [facility] Work Phone: [phone] Glucose [Mass/Vol] 132 mg/dL High 70 - 100 mg/dL [facility] Work Phone: [phone] Interpretation and review of laboratory results Abnormal [facility] Work Phone: Potassium [Moles/Vol] 3.7 mmol/L 3.5 - 5.1 mmol/L [facility] Work Phone: [phone] Sodium [Moles/Vol] 136 mmol/L 135 - 145 mmol/L [facility] Work Phone: [phone] Urea nitrogen (BldV) [Mass/Vol] 19 mg/dL 7 - 20 mg/dL [facility] Work Phone: [phone] Auto DifferentialOrdered By: Peggy Henry on 11-07-2020 Absolute Baso # 0.0 10*3/uL 0.0 - 0.2 10*3/uL [facility] Work Phone: [phone] Absolute Neut # 3.4 10*3/uL 1.8 - 7.0 10*3/uL [facility] Work Phone: [phone] Basophils/100 WBC (Bld) 0.5 % 0.0 - 2.0 % [facility] Work Phone: [phone] Eosinophils (Bld) [#/Vol] 0.4 10*3/uL 0.0 - 0.5 10*3/uL [facility] Work Phone: 1 Eosinophils/100 WBC (Bld) 6.4 % High 1.0 - 6.0 % [facility] Work Phone: Granulocytes/100 WBC (Bld) 51.3 % 40.0 - 80.0 % [facility] Work Phone: Hematocrit (Bld) [Volume fraction] 33.6 % Low 35.0 - 47.0 % [facility] Work Phone: Hemoglobin.gastrointes tinal spec 1 Ql (Stl) 11.0 g/dL Low 11.7 - 16.0 g/dL [facility] Work Phone: Interpretation and review of laboratory results Abnormal [facility] Work Phone: Lymphocytes (Bld) [#/Vol] 2.1 10*3/uL 1.0 - 4.3 10*3/uL [facility] Work Phone: Lymphocytes/100 WBC (Bld) 32.6 % 20.0 - 40.0 % [facility] Work Phone: MCH (RBC) [Entitic mass] 27.7 pg 26.0 - 34.0 pg [facility] Work Phone: MCHC (RBC) [Mass/Vol] 32.7 % 32.0 - 36.0 % [facility] Work Phone: MCV (RBC) [Entitic vol] 84.7 fL 79.0 - 98.0 fL [facility] Work Phone: Monocytes (Bld) [#/Vol] 0.6 10*3/uL 0.0 - 0.8 10*3/uL [facility] Work Phone: 22 Monocytes/100 WBC (Bld) 9.2 % 2.0 - 10.0 % [facility] Work Phone: Platelet distribution width (Bld) [Ratio] 19.1 % High 11.5 - 14.5 % [facility] Work Phone: Platelet mean volume (Bld) [Entitic vol] 10.6 fL High 7.4 - 10.4 fL [facility] Work Phone: Platelets (Bld) [#/Vol] 200 10*3/uL 140 - 440 10*3/uL [facility] Work Phone: RBC (Bld) [#/Vol] 3.96 10*6/uL 3.80 - 5.2 0 10*6/uL [facility] Work Phone: WBC (Bld) [#/Vol] 6.6 10*3/uL 3.6 - 10.7 10*3/uL [facility] Work Phone: Test Performed by [facility], [address] [place] [address] [facility] Work Phone: [facility] Work Phone: CBC auto differentialOrdered By: Peggy Henry on 11-07-2020 Absolute Baso # 0.0 10*3/uL 0.0 - 0.2 10*3/uL [facility] Work Phone: Absolute Neut # 4.0 10*3/uL 1.8 - 7.0 10*3/uL [facility] Work Phone: Basophils/100 WBC (Bld) 0.7 % 0.0 - 2.0 % [facility] Work Phone: Eosinophils (Bld) [#/Vol] 0.3 10*3/uL 0.0 - 0.5 10*3/uL [facility] Work Phone: Eosinophils/100 WBC (Bld) 5.4 % 1.0 - 6.0 % [facility] Work Phone: Granulocytes/100 WBC (Bld) 62.8 % 40.0 - 80.0 % [facility] Work Phone: Hematocrit (Bld) [Volume fraction] 34.9 % Low 35.0 - 47.0 % [facility] Work Phone: Hemoglobin.gastrointes tinal spec 1 Ql (Stl) 11.3 g/dL Low 11.7 - 16.0 g/dL [facility] Work Phone: [phone] Interpretation and review of laboratory results Abnormal [facility] Work Phone: 1 Lymphocytes (Bld) [#/Vol] 1.4 10*3/uL 1.0 - 4.3 10*3/uL [facility] Work Phone: [phone] Lymphocytes/100 WBC (Bld) 22.3 % 20.0 - 40.0 % [facility] Work Phone: 1 MCH (RBC) [Entitic mass] 27.2 pg 26.0 - 34.0 pg [facility] Work Phone: 1 MCHC (RBC) [Mass/Vol] 32.3 % 32.0 - 36.0 % [facility] Work Phone: 1 MCV (RBC) [Entitic vol] 84.2 fL 79.0 - 98.0 fL [facility] Work Phone: 1 Monocytes (Bld) [#/Vol] 0.6 10*3/uL 0.0 - 0.8 10*3/uL [facility] Work Phone: 1 Monocytes/100 WBC (Bld) 8.8 % 2.0 - 10.0 % [facility] Work Phone: 1 Platelet distribution width (Bld) [Ratio] 18.5 % High 11.5 - 14.5 % [facility] Work Phone: Platelet mean volume (Bld) [Entitic vol] 10.3 fL 7.4 - 10.4 fL [facility] Work Phone: Platelets (Bld) [#/Vol] 207 10*3/uL 140 - 440 10*3/uL [facility] Work Phone: 1 RBC (Bld) [#/Vol] 4.15 10*6/uL 3.80 - 5.2 0 10*6/uL [facility] Work Phone: WBC (Bld) [#/Vol] 6.4 10*3/uL 3.6 - 10.7 10*3/uL [facility] Work Phone: 1 Test Performed by [address] [address] [facility] Work Phone: [facility] Work Phone: COVID and Resp PCR Panelon 0 11-07-2020 SARS-CoV-2 (COVID-19) RNA JAYLIN+probe Ql (Unsp spec) COVID and Resp PCR Panel --> Status: F NEGATIVE: No targets were detected by the [facility] Upper Respiratory Pathogens PCR Panel. _ Expected Result: Not Detected The [employer] Upper Respiratory Pathogens PCR Panel can detect the following targets: SARS-CoV-2, Adenovirus, Coronavirus 229E, Coronavirus HKU1, Coronavirus NL63, Coronavirus OC43, Human Metapneumovirus, Human Rhinovirus/Enterovirus, Influenza A, Influenza B, Parainfluenza Virus 1, Parainfluenza Virus 2, Parainfluenza Virus 3, Parainfluenza Virus 4, Respiratory Syncytial Virus, Bordetella pertussis, Bordetella parapertussis, Chlamydia pneumoniae, Mycoplasma pneumoniae. Negative results do not preclude SARS-CoV-2 infection and should not be used as the sole basis for treatment or other patient management decisions. This assay was developed by [employer] and distributed under an Emergency Use Authorization (EUA) granted by the FDA for the qualitative detection of SARS-CoV-2 nucleic acid. Provider and patient fact sheets can be found at https://www.fda.gov/media /857850/download and https://www.fda.gov/media /564660/download. Respiratory Pathogens PCR Panel. _ Expected Result: Not Detected The [facility] Upper Respiratory Pathogens PCR Panel can detect the following targets: SARS-CoV-2, Adenovirus, Coronavirus 229E, Coronavirus HKU1, Coronavirus NL63, Coronavirus OC43, Human Metapneumovirus, Human Rhinovirus/Enterovirus, Influenza A, Influenza B, Parainfluenza Virus 1, Parainfluenza Virus 2, Parainfluenza Virus 3, Parainfluenza Virus 4, Respiratory Syncytial Virus, Bordetella pertussis, Bordetella parapertussis, Chlamydia pneumoniae, Mycoplasma pneumoniae. Negative results do not preclude SARS-CoV-2 infection and should not be used as the sole basis for treatment or other patient management decisions. This assay was developed by [employer] and distributed under an Emergency Use Authorization (EUA) granted by the [facility] for the qualitative detection of SARS-CoV-2 nucleic acid. Provider and patient fact sheets can be found at https://www.fda.gov/media /135753/download and https://www.fda.gov/media /844714/download. Normal [facility] Comment on above: Performed By: #### B MP3M, TROPN, MG3, HEMDF, PHOS3 #### [facility] [address], [place] Complete Urinalysison 2020 Appearance (U) Clear Normal Clear [facility] Comment on above: Result Comment: . Performed By: #### B MP3M, TROPN, MG3, HEMDF, PHOS3 #### [place] [address], [place] Bilirubin,Urine Negative Normal Negative [facility] Comment on above: Result Comment: . Performed By: #### B MP3M, TROPN, MG3, HEMDF, PHOS3 #### [place] [address], [place] Color (U) Light-Yellow Normal Lt. Yellow [facility] Comment on above: Result Comment: . Performed By: #### B MP3M, TROPN, MG3, HEMDF, PHOS3 #### [place] [address], [place] Glucose Ql (U) Normal Normal Normal (<70) [facility] Comment on above: Result Comment: . Performed By: #### B MP3M, TROPN, MG3, HEMDF, PHOS3 #### [facility] [address], [place] Ketone,Urine Negative Normal Negative [facility] Comment on above: Result Comment: . Performed By: #### B MP3M, TROPN, MG3, HEMDF, PHOS3 #### [place] [address], [place] Leukocytes,Urine Negative Normal Negative [facility] Comment on above: Result Comment: . Performed By: #### B MP3M, TROPN, MG3, HEMDF, PHOS3 #### [place] [address], [place] Nitrites,Urine Negative Normal Negative [facility] Comment on above: Result Comment: . Performed By: #### B MP3M, TROPN, MG3, HEMDF, PHOS3 #### [place] [address], [place] Occult Blood,Urine Negative Normal Negative [facility] Comment on above: Result Comment: . Performed By: #### B MP3M, TROPN, MG3, HEMDF, PHOS3 #### [place] [address] [place], [place] pH,Urine 5.5 Normal 5.0-8.0 [facility] Comment on above: Result Comment: . Performed By: #### B MP3M, TROPN, MG3, HEMDF, PHOS3 #### [place] [address], [place] Specific [place],Urine 1.015 Normal 1.005 - 1.030 [facility] Comment on above: Result Comment: . Performed By: #### B MP3M, TROPN, MG3, HEMDF, PHOS3 #### [place] [address], [place] Total Protein,Urine Negative Normal Negative [facility] Comment on above: Result Comment: . Performed By: #### B MP3M, TROPN, MG3, HEMDF, PHOS3 #### [address] [place], [place] Urobilinogen,Urine Normal Normal Normal (0-1) [facility] Comment on above: Result Comment: . Performed By: #### B MP3M, TROPN, MG3, HEMDF, PHOS3 #### [address], [place] Hemoglobin A1Con 11-07-2020 Glucose [Mass/Vol] 134 mg/dL Normal [facility] Comment on above: Performed By: #### B MP3M, TROPN, MG3, HEMDF, PHOS3 #### [address] [address] [place], [place] HbA1c (Bld) [Mass fraction] 6.3 % Abnormal [facility] Comment on above: Result Comment: Norm al less than 5.7% Prediabetes 5.7% to 6.4% Diabetes 6.5% or higher --HgbA1C levels may not be accurate in patients who have renal disease, received recent blood transfusions, are anemic, or who have dyshemoglobinemia. Performed By: #### B MP3M, TROPN, MG3, HEMDF, PHOS3 #### [address] Hemoglobin D3mIfyawte By: Nick Henry on 11-07-2020 HbA1c (Bld) [Mass fraction] 6.3 % Abnormal [facility] Work Phone: Comment on above: Normal less than 5.7 % Prediabetes 5.7% to 6.4% Diabetes 6.5% or higher --HgbA1C levels may not be accurate in patients who have renal disease, received recent blood transfusions, are anemic, or who have dyshemoglobinemia. Interpretation and review of laboratory results Abnormal [facility] Work Phone: Magnesium [Mass/Vol] 134 mg/dL [facility] Work Phone: Test Performed by [facility], [address] [place] [id number] [place] [address] Work Phone: [facility] Work Phone: Hemogram w/ Autodiffon 11-07 Abs Baso Cnt 0.0 10*3/uL Normal 0.0-0.2 [facility] Comment on above: Performed By: #### B MP3M, TROPN, MG3, HEMDF, PHOS3 #### [address] Abs Neutrophile Cnt 4.0 10*3/uL Normal 1.8-7.0 [facility] Comment on above: Performed By: #### B MP3M, TROPN, MG3, HEMDF, PHOS3 #### [address] Basophils/100 WBC (Bld) 0.7 % Normal 0.0-2.0 [facility] Comment on above: Performed By: #### B MP3M, TROPN, MG3, HEMDF, PHOS3 #### [address] [address] [place], [place] Eosinophils (Bld) [#/Vol] 0.3 10*3/uL Normal 0.0-0.5 [facility] Comment on above: Performed By: #### B MP3M, TROPN, MG3, HEMDF, PHOS3 #### [address] [address] [place], [place] Eosinophils/100 WBC (Bld) 5.4 % Normal 1.0-6.0 [facility] Comment on above: Performed By: #### B MP3M, TROPN, MG3, HEMDF, PHOS3 #### [address] [address] [place], [place] Erythrocyte distribution width (RBC) [Ratio] 18.5 % High 11.5-14.5 [facility] Comment on above: Performed By: #### B MP3M, TROPN, MG3, HEMDF, PHOS3 #### [address] Granulocytes/100 WBC (Bld) 62.8 % Normal 40.0-80.0 [facility] Comment on above: Performed By: #### B MP3M, TROPN, MG3, HEMDF, PHOS3 #### [address] Hematocrit (Bld) [Volume fraction] 34.9 % Low 35.0-47.0 [facility] Comment on above: Performed By: #### B MP3M, TROPN, MG3, HEMDF, PHOS3 #### [address] [address] [place], [place] Hemoglobin (Bld) [Mass/Vol] 11.3 g/dL Low 11.7-16.0 [facility] Comment on above: Performed By: #### B MP3M, TROPN, MG3, HEMDF, PHOS3 #### [facility] [address], [place] Lymphocytes (Bld) [#/Vol] 1.4 10*3/uL Normal 1.0-4.3 [facility] Comment on above: Performed By: #### B MP3M, TROPN, MG3, HEMDF, PHOS3 #### [address] [place], [place] Lymphocytes/100 WBC (Bld) 22.3 % Normal 20.0-40.0 [facility] Comment on above: Performed By: #### B MP3M, TROPN, MG3, HEMDF, PHOS3 #### [address] [place], [place] MCH (RBC) [Entitic mass] 27.2 pg Normal 26.0-34.0 [facility] Comment on above: Performed By: #### B MP3M, TROPN, MG3, HEMDF, PHOS3 #### [address] [place], [place] MCHC 32.3 % Normal 32.0-36.0 [facility] Comment on above: Performed By: #### B MP3M, TROPN, MG3, HEMDF, PHOS3 #### [address] [place], [place] MCV (RBC) [Entitic vol] 84.2 fL Normal 79.0-98.0 [facility] Comment on above: Performed By: #### B MP3M, TROPN, MG3, HEMDF, PHOS3 #### [address] [place], [place] Monocytes (Bld) [#/Vol] 0.6 10*3/uL Normal 0.0-0.8 [facility] Comment on above: Performed By: #### B MP3M, TROPN, MG3, HEMDF, PHOS3 #### [address] [address] [place], [place] Monocytes/100 WBC (Bld) 8.8 % Normal 2.0-10.0 [facility] Comment on above: Performed By: #### B MP3M, TROPN, MG3, HEMDF, PHOS3 #### [address] [address] [place], [place] Platelet mean volume (Bld) [Entitic vol] 10.3 fL Normal 7.4-10.4 [facility] Comment on above: Performed By: #### B MP3M, TROPN, MG3, HEMDF, PHOS3 #### [address] [place], [place] Platelets (Bld) [#/Vol] 207 10*3/uL Normal 140-440 [facility] Comment on above: Performed By: #### B MP3M, TROPN, MG3, HEMDF, PHOS3 #### [address] [place], [place] RBC (Bld) [#/Vol] 4.15 10*6/uL Normal 3.80-5.20 [facility] Comment on above: Performed By: #### B MP3M, TROPN, MG3, HEMDF, PHOS3 #### [address] [place], [place] WBC (Bld) [#/Vol] 6.4 10*3/uL Normal 3.6-10.7 [facility] Comment on above: Performed By: #### B MP3M, TROPN, MG3, HEMDF, PHOS3 #### [address] [place], [place] Abs Baso Cnt 0.0 10*3/uL Normal 0.0-0.2 [facility] Comment on above: Performed By: #### M G3, HEMDF, BMP3M, PHOS3 #### [address] [place], [place] Abs Neutrophile Cnt 3.4 10*3/uL Normal 1.8-7.0 [facility] Comment on above: Performed By: #### M G3, HEMDF, BMP3M, PHOS3 #### [address] [address] [place], [place] Basophils/100 WBC (Bld) 0.5 % Normal 0.0-2.0 [facility] Comment on above: Performed By: #### M G3, HEMDF, BMP3M, PHOS3 #### [address] [address] [place], [place] Eosinophils (Bld) [#/Vol] 0.4 10*3/uL Normal 0.0-0.5 [facility] Comment on above: Performed By: #### M G3, HEMDF, BMP3M, PHOS3 #### [address] [address] [place], [place] Eosinophils/100 WBC (Bld) 6.4 % High 1.0-6.0 [facility] Comment on above: Performed By: #### M G3, HEMDF, BMP3M, PHOS3 #### [address] [address] [place], [place] Erythrocyte distribution width (RBC) [Ratio] 19.1 % High 11.5-14.5 [facility] Comment on above: Performed By: #### M G3, HEMDF, BMP3M, PHOS3 #### [address] [address] [place], [place] Granulocytes/100 WBC (Bld) 51.3 % Normal 40.0-80.0 [facility] Comment on above: Performed By: #### M G3, HEMDF, BMP3M, PHOS3 #### [address] [place], [place] Hematocrit (Bld) [Volume fraction] 33.6 % Low 35.0-47.0 [facility] Comment on above: Performed By: #### M G3, HEMDF, BMP3M, PHOS3 #### [address] [place], [place] Hemoglobin (Bld) [Mass/Vol] 11.0 g/dL Low 11.7-16.0 [facility] Comment on above: Performed By: #### M G3, HEMDF, BMP3M, PHOS3 #### [address] [address] [place], [place] Lymphocytes (Bld) [#/Vol] 2.1 10*3/uL Normal 1.0-4.3 [facility] Comment on above: Performed By: #### M G3, HEMDF, BMP3M, PHOS3 #### [address] [address] [place], [place] Lymphocytes/100 WBC (Bld) 32.6 % Normal 20.0-40.0 [facility] Comment on above: Performed By: #### M G3, HEMDF, BMP3M, PHOS3 #### [address] [place], [place] MCH (RBC) [Entitic mass] 27.7 pg Normal 26.0-34.0 [facility] Comment on above: Performed By: #### M G3, HEMDF, BMP3M, PHOS3 #### [address] [address] [place] MCHC 32.7 % Normal 32.0-36.0 [facility] Comment on above: Performed By: #### M G3, HEMDF, BMP3M, PHOS3 #### [address] [place], [place] MCV (RBC) [Entitic vol] 84.7 fL Normal 79.0-98.0 [facility] Comment on above: Performed By: #### M G3, HEMDF, BMP3M, PHOS3 #### [address] [address] [place], [place] Monocytes (Bld) [#/Vol] 0.6 10*3/uL Normal 0.0-0.8 [facility] Comment on above: Performed By: #### M G3, HEMDF, BMP3M, PHOS3 #### [address] [address] [place], [place] Monocytes/100 WBC (Bld) 9.2 % Normal 2.0-10.0 [facility] Comment on above: Performed By: #### M G3, HEMDF, BMP3M, PHOS3 #### [address], [place] Platelet mean volume (Bld) [Entitic vol] 10.6 fL High 7.4-10.4 [facility] Comment on above: Performed By: #### M G3, HEMDF, BMP3M, PHOS3 #### [address] Platelets (Bld) [#/Vol] 200 10*3/uL Normal 140-440 [facility] Comment on above: Performed By: #### M G3, HEMDF, BMP3M, PHOS3 #### [address] RBC (Bld) [#/Vol] 3.96 10*6/uL Normal 3.80-5.20 [facility] Comment on above: Performed By: #### M G3, HEMDF, BMP3M, PHOS3 #### [address] WBC (Bld) [#/Vol] 6.6 10*3/uL Normal 3.6-10.7 [facility] Comment on above: Performed By: #### M G3, HEMDF, BMP3M, PHOS3 #### [address] MRSA by PCROrdered By: Kathrin Hein on 11-07-2020 Staph Aureus Sc Methicillin-sensitiv e S. aureus (MSSA) present. No MRSA detected. Negative nasal MRSA PCR has a high negative predictive value for MRSA pneumonia. Consider stopping vancomycin if no other clinical indication. Positive results do not necessarily indicate active infection with MSSA. Contact Antimicrobial Stewardship for further recommendations. The analytical performance characteristics of this assay have been determined by [facility] in accordance with CLIA regulations. The modifications have not been cleared or approved by the U. S. Food and Drug Administration; however, the FDA has determined that such clearance or approval is not necessary. [facility] Work Phone: Test Performed by [address] [address] [facility] Work Phone: [facility] Work Phone: Magnesiumon 11-07-2020 Magnesium [Mass/Vol] 1.6 mg/dL Normal 1.6-2.3 [facility] Comment on above: Performed By: #### B MP3M, TROPN, MG3, HEMDF, PHOS3 #### [address] [address] Magnesium [Mass/Vol] 1.7 mg/dL Normal 1.6-2.3 [facility] Comment on above: Performed By: #### M G3, HEMDF, BMP3M, PHOS3 #### [address] [address] [place] [address] MagnesiumOrdered By: Munira Henry on 11-07-2020 Magnesium [Mass/Vol] 1.6 mg/dL 1.6 - 2 .3 mg/dL [facility] Work Phone: Test Performed by [facility], [address] [place] [id number] [facility] Work Phone: [facility] Work Phone: Magnesium [Mass/Vol] 1.7 mg/dL 1.6 - 2 .3 mg/dL [facility] Work Phone: No Panel InformationOrdered By: Peggy Henry on 11-07-2020 Test Performed by [facility], [address] [place] [id number] [facility] Work Phone: [facility] Work Phone: Test Performed by [facility], [address] [place] [address] [facility] Work Phone: [facility] Work Phone: Phosphoruson 11-07-2020 Phosphate [Mass/Vol] 4.1 mg/dL Normal 2.5-4.5 [facility] Comment on above: Performed By: #### M G3, HEMDF, BMP3M, PHOS3 #### [address] [address] PhosphorusOrdered By: Elias Henry on 11-07-2020 Phosphate [Mass/Vol] 4.1 mg/dL 2.5 - 4 .5 mg/dL [facility] Work Phone: Prothrombin Timeon INR 1.0 Normal 0.9-1.1 [facility] [employer] [facility] Comment on above: Result Comment: Geovanny mmended Anticoagulant Therapy: SEE BELOW ----- INR of 2.0 - 3.0 : - Prophylaxis of Venous Thrombosis (high-risk surgery) - Treatment of Venous Thrombosis - Treatment of Pulmonary Embolism (Includes tissue heart valves, Acute Myocardial Infarction to prevent systemic embolism, Valvular Heart Disease, and Atrial Fibrillation) ----- INR of 2.5 - 3.5 : - Mechanical Prosthetic Valves (high risk) - If oral anticoagulant therapy is used to prevent Myocardial Infarction Performed By: #### B MP3M, TROPN, MG3, HEMDF, PHOS3 #### [facility] [place] [address] PT Coag (PPP) [Time] 10.7 s Normal 9.0-12.0 [facility] Comment on above: Result Comment: . Performed By: #### B MP3M, TROPN, MG3, HEMDF, PHOS3 #### [address] [place] [address] Protime-INROrdered By: Symone Henry on 11-07-2020 INR Coag (Bld) [Relative time] 1.0 {INR} [facility] Work Phone: Comment on above: Recommended Anticoag ulant Therapy: SEE BELOW ----- INR of 2.0 - 3.0 : - Prophylaxis of Venous Thrombosis (high-risk surgery) - Treatment of Venous Thrombosis - Treatment of Pulmonary Embolism (Includes tissue heart valves, Acute Myocardial Infarction to prevent systemic embolism, Valvular Heart Disease, and Atrial Fibrillation) ----- INR of 2.5 - 3.5 : - Mechanical Prosthetic Valves (high risk) - If oral anticoagulant therapy is used to prevent Myocardial Infarction PT Coag (PPP) [Time] 10.7 s 9.0 - 1 2.0 s [facility] Work Phone: Comment on above: . Respiratory Panel, Molecular , with COVID-19 (Restricted: peds pts or suitable admitted adults)Ordered By: Ronen Hein on 11-07-2020 Respiratory Panel Molecular, with COVID NEGATIVE: No targets were detected by the [facility] Upper Respiratory Pathogens PCR Panel. _ Expected Result: Not Detected The [facility] Upper Respiratory Pathogens PCR Panel can detect the following targets: SARS-CoV-2, Adenovirus, Coronavirus 229E, Coronavirus HKU1, Coronavirus NL63, Coronavirus OC43, Human Metapneumovirus, Human Rhinovirus/Enterovirus, Influenza A, Influenza B, Parainfluenza Virus 1, Parainfluenza Virus 2, Parainfluenza Virus 3, Parainfluenza Virus 4, Respiratory Syncytial Virus, Bordetella pertussis, Bordetella parapertussis, Chlamydia pneumoniae, Mycoplasma pneumoniae. Negative results do not preclude SARS-CoV-2 infection and should not be used as the sole basis for treatment or other patient management decisions. This assay was developed by [employer] and distributed under an Emergency Use Authorization (EUA) granted by the FDA for the qualitative detection of SARS-CoV-2 nucleic acid. Provider and patient fact sheets can be found at https://www.fda.gov/media /063785/download and https://www.fda.gov/media /574416/download. [facility] Work Phone: Test Performed by [facility], [address] [place] [id number] [facility] Work Phone: [facility] Work Phone: Staph Aureus Complete Nasalo n 11-07-2020 Staph Aureus Complete Nasal Staph Screen --> Status: F Methicillin-sensitive S. aureus (MSSA) present. No MRSA detected. Negative nasal MRSA PCR has a high negative predictive value for MRSA pneumonia. Consider stopping vancomycin if no other clinical indication. Positive results do not necessarily indicate active infection with MSSA. Contact Antimicrobial Stewardship for further recommendations. The analytical performance characteristics of this assay have been determined by [employer] in accordance with CLIA regulations. The modifications have not been cleared or approved by the U. S. Food and Drug Administration; however, the FDA has determined that such clearance or approval is not necessary. No MRSA detected. Negative nasal MRSA PCR has a high negative predictive value for MRSA pneumonia. Consider stopping vancomycin if no other clinical indication. Positive results do not necessarily indicate active infection with MSSA. Contact Antimicrobial Stewardship for further recommendations. The analytical performance characteristics of this assay have been determined by [employer] in accordance with CLIA regulations. The modifications have not been cleared or approved by the U. S. Food and Drug Administration; however, the FDA has determined that such clearance or approval is not necessary. Normal [facility] Comment on above: Performed By: #### M G3, HEMDF, BMP3M, PHOS3 #### [facility] [employer] [address] [place] [address] TS GELon 11-07-2020 TS GEL ABO Group: A Rh, Gel: POS Antibody Screen Gel: NEG Normal [facility] Comment on above: Performed By: #### M G3, HEMDF, BMP3M, PHOS3 #### [address] [address] [place] [address] TYPE AND SCREENOrdered By: Mac Henry on 11-07-2020 ABO Grouping A [facility] Work Phone: [phone] Type Positive [facility] Work Phone: 1 Test Performed by [facility], [facility] [place] [address] [facility] Work Phone: [phone] [facility] Work Phone: [phone] UrinalysisOrdered By: Elias Henry on 11-07-2020 Appearance (U) Clear Clear NA [facility] Work Phone: [phone] Comment on above: . Bilirubin Urine Negative Negative mg/dL [facility] Work Phone: [phone] Comment on above: . Color (U) Light-Yellow Lt. Yellow NA [facility] Work Phone: [phone] Comment on above: . Glucose, Ur Normal Normal (<70) mg/dL [facility] Work Phone: [phone] Comment on above: . Ketones Ql (U) Negative Negative mg/dL [facility] Work Phone: [phone] Comment on above: . LEUKOCYTES, UA Negative Negative Petar/uL [facility] Work Phone: [phone] Comment on above: . Nitrite, Urine Negative Negative NA [facility] Work Phone: [phone] Comment on above: . Occult Blood,Urine Negative Negative mg/dL [facility] Work Phone: [phone] Comment on above: . pH (U) 5.5 [pH] [facility] Work Phone: [phone] Comment on above: . Specific [place], Urine 1.015 [facility] Work Phone: [phone] Comment on above: . Total Protein, Urine Negative Negativ e mg/dL [facility] Work Phone: [phone] Comment on above: . Urobilinogen, Urine Normal Normal (0-1) mg/dL [facility] Work Phone: [phone] Comment on above: . Test Performed by [facility], [address] [place] [address] [facility] Work Phone: [phone] [facility] Work Phone: [phone] Basic Metabolic Panelon 07-0 -2020 Calcium [Mass/Vol] 9.1 mg/dL Normal 8.4-10.4 [facility] Comment on above: Performed By: #### M G3, HEMDF, BMP3M, PHOS3 #### [address] [address] [place], [place] Anion gap [Moles/Vol] 7 mmol/L Normal 3-13 [facility] Comment on above: Performed By: #### M G3, HEMDF, BMP3M, PHOS3 #### [address] [address] [place], [place] CO2 [Moles/Vol] 23 mmol/L Normal 22-30 [facility] Comment on above: Performed By: #### M G3, HEMDF, BMP3M, PHOS3 #### [address] [address] [place], [place] Creatinine [Mass/Vol] 0.57 mg/dL Normal 0.52-1.25 [facility] Comment on above: Performed By: #### M G3, HEMDF, BMP3M, PHOS3 #### [address] [address] [place], [place] eGFR OTHER > 90.0 Normal >60 [facility] Comment on above: Result Comment: KDIG O guidelines provide the following GFR categories: Stage GFR(ml/min/1.73 m2) Terms G1 >=90 Normal or high G2 60-89 Mildly decreased* G3a 45-59 Mildly to moderately decreased G3b 30-44 Moderately to severely decreased G4 15-29 Severely decreased G5 <15 Kidney failure *Relative to young adult level. In the absence of evidence of kidney damage, neither GFR category G1 nor G2 fulfill the criteria for CKD. The CKD-EPI equation is validated in individuals 18 years of age and older. Currently the best equation for estimating glomerular filtration rate (GFR) from serum creatinine in children is the Bedside Morales equation. It is less accurate in patients with extremes of muscle mass, restriction of dietary protein, ingestion of creatine, extra-renal metabolism of creatinine, or treatment with medications that affect renal tubular creatinine secretion. Performed By: #### M G3, HEMDF, BMP3M, PHOS3 #### [address] [address] GFR/1.73 sq M.predicted among blacks MDRD (S/P/Bld) [Vol rate/Area] mL/min/{1.73_m2} Normal >60 [facility] Comment on above: Performed By: #### Ismael G3, HEMDF, BMP3M, PHOS3 #### [address] [address] [place] [address] Glucose [Mass/Vol] 135 mg/dL High 70-100 [facility] Comment on above: Performed By: #### Ismael G3, HEMDF, BMP3M, PHOS3 #### [address] [address] Urea nitrogen [Mass/Vol] 14 mg/dL Normal 7-20 [facility] Comment on above: Performed By: #### M G3, HEMDF, BMP3M, PHOS3 #### [address] [address] [place] [address] Chloride [Moles/Vol] 106 mmol/L Normal 98-107 [facility] Comment on above: Performed By: #### M G3, HEMDF, BMP3M, PHOS3 #### [address] [address] Potassium [Moles/Vol] 3.7 mmol/L Normal 3.5-5.1 [facility] Comment on above: Performed By: #### M G3, HEMDF, BMP3M, PHOS3 #### [facility] [employer] [facility] [address] [place] [address] Sodium [Moles/Vol] 136 mmol/L Normal 135-145 [facility] Comment on above: Performed By: #### M G3, HEMDF, BMP3M, PHOS3 #### [facility] [employer] [facility] [address] [place] [address] Basic Metabolic Panel w/ Ref [place] to MGOrdered By: Peggy Henry on 11-06-2020 Anion gap [Moles/Vol] 7 mmol/L 3 - 13 mmol/L [facility] Work Phone: Calcium [Mass/Vol] 9.1 mg/dL 8.4 - 10. 4 mg/dL [facility] Work Phone: Chloride [Moles/Vol] 106 mmol/L 98 - 10 7 mmol/L [facility] Work Phone: CO2 [Moles/Vol] 23 mmol/L 22 - 30 mmol/L [facility] Work Phone: Creatinine [Mass/Vol] 0.57 mg/dL 0.52 - 1.25 mg/dL [employer] Work Phone: EGFR IF NonAfrican Czech >90.0 >60 mL/min [facility] Work Phone: Comment on above: KDIGO guidelines pro vide the following GFR categories: Stage GFR(ml/min/1.73 m2) Terms G1 >=90 Normal or high G2 60-89 Mildly decreased* G3a 45-59 Mildly to moderately decreased G3b 30-44 Moderately to severely decreased G4 15-29 Severely decreased G5 <15 Kidney failure *Relative to young adult level. In the absence of evidence of kidney damage, neither GFR category G1 nor G2 fulfill the criteria for CKD. The CKD-EPI equation is validated in individuals 18 years of age and older. Currently the best equation for estimating glomerular filtration rate (GFR) from serum creatinine in children is the Bedside Morales equation. It is less accurate in patients with extremes of muscle mass, restriction of dietary protein, ingestion of creatine, extra-renal metabolism of creatinine, or treatment with medications that affect renal tubular creatinine secretion. GFR/1.73 sq M.predicted among blacks MDRD (S/P/Bld) [Vol rate/Area] mL/min/{1.73_m2} >60 mL/min [facility] Work Phone: Glucose [Mass/Vol] 135 mg/dL High 70 - 100 mg/dL [facility] Work Phone: [phone] Interpretation and review of laboratory results Abnormal [facility] Work Phone: Potassium [Moles/Vol] 3.7 mmol/L 3.5 - 5.1 mmol/L [facility] Work Phone: Sodium [Moles/Vol] 136 mmol/L 135 - 145 mmol/L [facility] Work Phone: 1 Urea nitrogen (BldV) [Mass/Vol] 14 mg/dL 7 - 20 mg/dL [facility] Work Phone: [phone] CBC Auto DifferentialOrdered By: Peggy Henry on 11-06-2020 Absolute Baso # 0.0 10*3/uL 0.0 - 0.2 10*3/uL [facility] Work Phone: Absolute Neut # 3.1 10*3/uL 1.8 - 7.0 10*3/uL [facility] Work Phone: Basophils/100 WBC (Bld) 0.5 % 0.0 - 2.0 % [facility] Work Phone: [phone] Eosinophils (Bld) [#/Vol] 0.3 10*3/uL 0.0 - 0.5 10*3/uL [facility] Work Phone: Eosinophils/100 WBC (Bld) 5.3 % 1.0 - 6.0 % [facility] Work Phone: Granulocytes/100 WBC (Bld) 56.6 % 40.0 - 80.0 % [facility] Work Phone: [phone] Hematocrit (Bld) [Volume fraction] 32.4 % Low 35.0 - 47.0 % [facility] Work Phone: [phone] Hemoglobin.gastrointes tinal spec 1 Ql (Stl) 10.7 g/dL Low 11.7 - 16.0 g/dL [facility] Work Phone: [phone] Interpretation and review of laboratory results Abnormal [facility] Work Phone: 1 Lymphocytes (Bld) [#/Vol] 1.5 10*3/uL 1.0 - 4.3 10*3/uL [facility] Work Phone: [phone] Lymphocytes/100 WBC (Bld) 27.1 % 20.0 - 40.0 % [facility] Work Phone: 1 MCH (RBC) [Entitic mass] 27.6 pg 26.0 - 34.0 pg [facility] Work Phone: 1 MCHC (RBC) [Mass/Vol] 33.2 % 32.0 - 36.0 % [facility] Work Phone: MCV (RBC) [Entitic vol] 83.3 fL 79.0 - 98.0 fL [facility] Work Phone: Monocytes (Bld) [#/Vol] 0.6 10*3/uL 0.0 - 0.8 10*3/uL [facility] Work Phone: 1 Monocytes/100 WBC (Bld) 10.5 % High 2.0 - 10.0 % [facility] Work Phone: Platelet distribution width (Bld) [Ratio] 19.1 % High 11.5 - 14.5 % [facility] Work Phone: 1 Platelet mean volume (Bld) [Entitic vol] 10.1 fL 7.4 - 10.4 fL [facility] Work Phone: Platelets (Bld) [#/Vol] 181 10*3/uL 140 - 440 10*3/uL [facility] Work Phone: RBC (Bld) [#/Vol] 3.89 10*6/uL 3.80 - 5.2 0 10*6/uL [facility] Work Phone: WBC (Bld) [#/Vol] 5.5 10*3/uL 3.6 - 10.7 10*3/uL [facility] Work Phone: 1 Test Performed by [facility], [address] [place] [address] [facility] Work Phone: [facility] Work Phone: Hemogram w/ Autodiffon 11-06 Abs Baso Cnt 0.0 10*3/uL Normal 0.0-0.2 [facility] Comment on above: Performed By: #### M G3, HEMDF, BMP3M, PHOS3 #### [address] [place] [address] Abs Neutrophile Cnt 3.1 10*3/uL Normal 1.8-7.0 [facility] Comment on above: Performed By: #### M G3, HEMDF, BMP3M, PHOS3 #### [address] [address] [place] [address] Basophils/100 WBC (Bld) 0.5 % Normal 0.0-2.0 [facility] Comment on above: Performed By: #### M G3, HEMDF, BMP3M, PHOS3 #### [address] [address] [place] [address] Eosinophils (Bld) [#/Vol] 0.3 10*3/uL Normal 0.0-0.5 [facility] Comment on above: Performed By: #### M G3, HEMDF, BMP3M, PHOS3 #### [address] [address] [place] [address] Eosinophils/100 WBC (Bld) 5.3 % Normal 1.0-6.0 [facility] Comment on above: Performed By: #### M G3, HEMDF, BMP3M, PHOS3 #### [address] [address] [place] [address] Erythrocyte distribution width (RBC) [Ratio] 19.1 % High 11.5-14.5 [facility] Comment on above: Performed By: #### M G3, HEMDF, BMP3M, PHOS3 #### [address] [address] [place] [address] Granulocytes/100 WBC (Bld) 56.6 % Normal 40.0-80.0 [facility] Comment on above: Performed By: #### M G3, HEMDF, BMP3M, PHOS3 #### [address] [place], [place] Hematocrit (Bld) [Volume fraction] 32.4 % Low 35.0-47.0 [facility] Comment on above: Performed By: #### M G3, HEMDF, BMP3M, PHOS3 #### [address] [address] [place], [place] Hemoglobin (Bld) [Mass/Vol] 10.7 g/dL Low 11.7-16.0 [facility] Comment on above: Performed By: #### M G3, HEMDF, BMP3M, PHOS3 #### [address] [address] [place], [place] Lymphocytes (Bld) [#/Vol] 1.5 10*3/uL Normal 1.0-4.3 [facility] Comment on above: Performed By: #### M G3, HEMDF, BMP3M, PHOS3 #### [address] [address] [place], [place] Lymphocytes/100 WBC (Bld) 27.1 % Normal 20.0-40.0 [facility] Comment on above: Performed By: #### M G3, HEMDF, BMP3M, PHOS3 #### [address] MCH (RBC) [Entitic mass] 27.6 pg Normal 26.0-34.0 [facility] Comment on above: Performed By: #### M G3, HEMDF, BMP3M, PHOS3 #### [address] [place], [place] MCHC 33.2 % Normal 32.0-36.0 [facility] Comment on above: Performed By: #### M G3, HEMDF, BMP3M, PHOS3 #### [address] MCV (RBC) [Entitic vol] 83.3 fL Normal 79.0-98.0 [facility] Comment on above: Performed By: #### M G3, HEMDF, BMP3M, PHOS3 #### [facility] [address] [place], [place] Monocytes (Bld) [#/Vol] 0.6 10*3/uL Normal 0.0-0.8 [facility] Comment on above: Performed By: #### M G3, HEMDF, BMP3M, PHOS3 #### [address] [place], [place] Monocytes/100 WBC (Bld) 10.5 % High 2.0-10.0 [facility] Comment on above: Performed By: #### M G3, HEMDF, BMP3M, PHOS3 #### [address] [place], [place] Platelet mean volume (Bld) [Entitic vol] 10.1 fL Normal 7.4-10.4 [facility] Comment on above: Performed By: #### M G3, HEMDF, BMP3M, PHOS3 #### [address] [place], [place] Platelets (Bld) [#/Vol] 181 10*3/uL Normal 140-440 [facility] Comment on above: Performed By: #### M G3, HEMDF, BMP3M, PHOS3 #### [address] [place], [place] RBC (Bld) [#/Vol] 3.89 10*6/uL Normal 3.80-5.20 [facility] Comment on above: Performed By: #### M G3, HEMDF, BMP3M, PHOS3 #### [address] [place], [place] WBC (Bld) [#/Vol] 5.5 10*3/uL Normal 3.6-10.7 [facility] Comment on above: Performed By: #### M G3, HEMDF, BMP3M, PHOS3 #### [address] [place], [place] Magnesiumon 11-06-2020 Magnesium [Mass/Vol] 1.7 mg/dL Normal 1.6-2.3 [facility] Comment on above: Performed By: #### M G3, HEMDF, BMP3M, PHOS3 #### [address] [address] MagnesiumOrdered By: Munira Henry on 11-06-2020 Magnesium [Mass/Vol] 1.7 mg/dL 1.6 - 2 .3 mg/dL [facility] Work Phone: No Panel InformationOrdered By: Peggy Henry on 11-06-2020 Test Performed by [facility], [address] [place] [address] [place] [address] Work Phone: [facility] Work Phone: Phosphoruson 11-06-2020 Phosphate [Mass/Vol] 3.5 mg/dL Normal 2.5-4.5 [facility] Comment on above: Performed By: #### M G3, HEMDF, BMP3M, PHOS3 #### [address] PhosphorusOrdered By: Elias Henry on 11-06-2020 Phosphate [Mass/Vol] 3.5 mg/dL 2.5 - 4 .5 mg/dL [facility] Work Phone: Basic Metabolic Panelon Calcium [Mass/Vol] 9.0 mg/dL Normal 8.4-10.4 [facility] Comment on above: Performed By: #### B MP3M, TROPN, MG3, HEMDF, PHOS3 #### [address] [address] Anion gap [Moles/Vol] 6 mmol/L Normal 3-13 [facility] Comment on above: Performed By: #### B MP3M, TROPN, MG3, HEMDF, PHOS3 #### [address] [address] CO2 [Moles/Vol] 21 mmol/L Low 22-30 [facility] Comment on above: Performed By: #### B MP3M, TROPN, MG3, HEMDF, PHOS3 #### [address] Creatinine [Mass/Vol] 0.56 mg/dL Normal 0.52-1.25 [facility] Comment on above: Performed By: #### B MP3M, TROPN, MG3, HEMDF, PHOS3 #### [facility] [address] [place], [place] eGFR OTHER > 90.0 Normal >60 [facility] Comment on above: Result Comment: KDIG O guidelines provide the following GFR categories: Stage GFR(ml/min/1.73 m2) Terms G1 >=90 Normal or high G2 60-89 Mildly decreased* G3a 45-59 Mildly to moderately decreased G3b 30-44 Moderately to severely decreased G4 15-29 Severely decreased G5 <15 Kidney failure *Relative to young adult level. In the absence of evidence of kidney damage, neither GFR category G1 nor G2 fulfill the criteria for CKD. The CKD-EPI equation is validated in individuals 18 years of age and older. Currently the best equation for estimating glomerular filtration rate (GFR) from serum creatinine in children is the Bedside Morales equation. It is less accurate in patients with extremes of muscle mass, restriction of dietary protein, ingestion of creatine, extra-renal metabolism of creatinine, or treatment with medications that affect renal tubular creatinine secretion. Performed By: #### B MP3M, TROPN, MG3, HEMDF, PHOS3 #### [address] GFR/1.73 sq M.predicted among blacks MDRD (S/P/Bld) [Vol rate/Area] mL/min/{1.73_m2} Normal >60 [facility] Comment on above: Performed By: #### B MP3M, TROPN, MG3, HEMDF, PHOS3 #### [address] Glucose [Mass/Vol] 124 mg/dL High 70-100 [facility] Comment on above: Performed By: #### B MP3M, TROPN, MG3, HEMDF, PHOS3 #### [address] [address] [place], [place] Urea nitrogen [Mass/Vol] 10 mg/dL Normal 7-20 [facility] Comment on above: Performed By: #### B MP3M, TROPN, MG3, HEMDF, PHOS3 #### [facility] [address] [place], [place] Chloride [Moles/Vol] 108 mmol/L High 98-107 [facility] Comment on above: Performed By: #### B MP3M, TROPN, MG3, HEMDF, PHOS3 #### [address] [place], [place] Potassium [Moles/Vol] 3.6 mmol/L Normal 3.5-5.1 [facility] Comment on above: Performed By: #### B MP3M, TROPN, MG3, HEMDF, PHOS3 #### [address] [place], [place] Sodium [Moles/Vol] 136 mmol/L Normal 135-145 [facility] Comment on above: Performed By: #### B MP3M, TROPN, MG3, HEMDF, PHOS3 #### [address] [place], [place] Basic Metabolic Panel w/ Ref [place] to MGOrdered By: Peggy Henry on 11-05-2020 Anion gap [Moles/Vol] 6 mmol/L 3 - 13 mmol/L [facility] Work Phone: [phone] Calcium [Mass/Vol] 9.0 mg/dL 8.4 - 10. 4 mg/dL [facility] Work Phone: Chloride [Moles/Vol] 108 mmol/L High 98 - 10 7 mmol/L [facility] Work Phone: CO2 [Moles/Vol] 21 mmol/L Low 22 - 30 mmol/L [facility] Work Phone: Creatinine [Mass/Vol] 0.56 mg/dL 0.52 - 1.25 mg/dL [facility] Work Phone: [phone] IF NonAfrican Czech >90.0 >60 mL/min [facility] Work Phone: Comment on above: KDIGO guidelines pro vide the following GFR categories: Stage GFR(ml/min/1.73 m2) Terms G1 >=90 Normal or high G2 60-89 Mildly decreased* G3a 45-59 Mildly to moderately decreased G3b 30-44 Moderately to severely decreased G4 15-29 Severely decreased G5 <15 Kidney failure *Relative to young adult level. In the absence of evidence of kidney damage, neither GFR category G1 nor G2 fulfill the criteria for CKD. The CKD-EPI equation is validated in individuals 18 years of age and older. Currently the best equation for estimating glomerular filtration rate (GFR) from serum creatinine in children is the Bedside Morales equation. It is less accurate in patients with extremes of muscle mass, restriction of dietary protein, ingestion of creatine, extra-renal metabolism of creatinine, or treatment with medications that affect renal tubular creatinine secretion. GFR/1.73 sq M.predicted among blacks MDRD (S/P/Bld) [Vol rate/Area] mL/min/{1.73_m2} >60 mL/min [facility] Work Phone: Glucose [Mass/Vol] 124 mg/dL High 70 - 100 mg/dL [facility] Work Phone: Interpretation and review of laboratory results Abnormal [facility] Work Phone: Potassium [Moles/Vol] 3.6 mmol/L 3.5 - 5.1 mmol/L [facility] Work Phone: Sodium [Moles/Vol] 136 mmol/L 135 - 145 mmol/L [facility] Work Phone: Urea nitrogen (BldV) [Mass/Vol] 10 mg/dL 7 - 20 mg/dL [facility] Work Phone: Bedside spirometryOrdered By : Peggy Henry on 11-05-2020 Name: GENNY VARELA PatientID: [id number] Gender: Female Birthdate: 1950 Study Date: 11/05/2020 12:30:21 P Age: 70 Race: Other Race Height: 60.0 in, 152.4 cm Weight: 142.0 lbs, 64.5 kg Smoke Status: Never Pack Years: Tbco Prod: Cigarettes Ordering Physician: [id number] Interpreting Physician: [id number] [employer] Supervisor: LIANNE Testing Location: [facility] Diagnosis: preop Spirometry Units Pred PreDrug Pre%Pred Post Post%Pred %Change FVC L,btps 2.45 2.13 87. FEV1 L,btps 1.84 1.63 89. FEV1/FVC (%) % 76. 77. 101. [id number]% L/s 1.58 1.28 81. FEFmax L/s 4.90 4.69 96. MVV in,btps 74.12 Lung Volumes (Body Box) Units Pred PreDrug Pre%Pred TLC L,btps 4.36 VC L,btps 2.45 IC L,btps 1.88 FRC L,btps 2.49 ERV L,btps 0.58 RV L,btps 1.91 RV/TLC (%) % 44. VTG L,btps RAW H2O/L/s 1.56 SGaw cmH2O/L 0.26 Diffusion (DLCO) Units Pred PreDrug Pre%Pred DLCO ml/min/mmHg,stpd 19.48 DLCOHb ml/min/mmHg,stpd 19.48 VAsb L,btps 4.24 D/VAsb ml/min/mmHg/L,stpd 4.59 D/VAsbHb ml/min/mmHg/L,stpd 4.59 VInsp L Hgb g/dl COHb % Lung Mechanics Units Pred PreDrug Pre%Pred PImax /MIP cmH2O -65.20 PEmax /MEP cmH2O 87.32 GASTROENTEROLOGY PHYSICIAN NOTES Calibration check passed with acceptable system performance. Not all quality indicators met for spirometry acceptability. Patient best usable effort selected by largest FVC+FEV1. Patient sitting on side of bed for testing. Patient would only perform 3 tests. [address]- NANCY Tests to perform: RT17 - BEDSIDE SPIROMETRY PHYSICIAN INTERPRETATION No apparent airway obstruction or restriction was observed. [facility] Work Phone: On[facility], [facility] Incoming Cardiology Results From [facility]/[place] - 11/07/2020 10:09 AM EDT Name: GENNY VARELA PatientID: [id number] Gender: Female Birthdate: 1950 Study Date: 11/05/2020 12:30:21 P Age: 70 Race: Other Race Height: 60.0 in, 152.4 cm Weight: 142.0 lbs, 64.5 kg Smoke Status: Never Pack Years: Tbco Prod: Cigarettes Ordering Physician: [id number] Interpreting Physician: [id number] [employer] Supervisor: LIANNE Testing Location: [facility] Diagnosis: preop Spirometry Units Pred PreDrug Pre%Pred Post Post%Pred %Change FVC L,btps 2.45 2.13 87. FEV1 L,btps 1.84 1.63 89. FEV1/FVC (%) % 76. 77. 101. EWC41-26% L/s 1.58 1.28 81. FEFmax L/s 4.90 4.69 96. MVV in,btps 74.12 Lung Volumes (Body Box) Units Pred PreDrug Pre%Pred TLC L,btps 4.36 VC L,btps 2.45 IC L,btps 1.88 FRC L,btps 2.49 ERV L,btps 0.58 RV L,btps 1.91 RV/TLC (%) % 44. VTG L,btps RAW H2O/L/s 1.56 SGaw cmH2O/L 0.26 Diffusion (DLCO) Units Pred PreDrug Pre%Pred DLCO ml/min/mmHg,stpd 19.48 DLCOHb ml/min/mmHg,stpd 19.48 VAsb L,btps 4.24 D/VAsb ml/min/mmHg/L,stpd 4.59 D/VAsbHb ml/min/mmHg/L,stpd 4.59 VInsp L Hgb g/dl COHb % Lung Mechanics Units Pred PreDrug Pre%Pred PImax /MIP cmH2O -65.20 PEmax /MEP cmH2O 87.32 GASTROENTEROLOGY PHYSICIAN NOTES Calibration check passed with acceptable system performance. Not all quality indicators met for spirometry acceptability. Patient best usable effort selected by largest FVC+FEV1. Patient sitting on side of bed for testing. Patient would only perform 3 tests. [address]- NANCY Tests to perform: RT17 - BEDSIDE SPIROMETRY PHYSICIAN INTERPRETATION No apparent airway obstruction or restriction was observed. [facility] Work Phone: [facility] Work Phone: CBC Auto DifferentialOrdered By: Peggy Henry on 11-05-2020 Absolute Baso # 0.0 10*3/uL 0.0 - 0.2 10*3/uL [facility] Work Phone: [phone] Absolute Neut # 3.0 10*3/uL 1.8 - 7.0 10*3/uL [facility] Work Phone: 1 Basophils/100 WBC (Bld) 0.4 % 0.0 - 2.0 % [facility] Work Phone: 1 Eosinophils (Bld) [#/Vol] 0.3 10*3/uL 0.0 - 0.5 10*3/uL [facility] Work Phone: 1 Eosinophils/100 WBC (Bld) 5.0 % 1.0 - 6.0 % [facility] Work Phone: 1 Granulocytes/100 WBC (Bld) 60.2 % 40.0 - 80.0 % [facility] Work Phone: Hematocrit (Bld) [Volume fraction] 31.2 % Low 35.0 - 47.0 % [facility] Work Phone: Hemoglobin.gastrointes tinal spec 1 Ql (Stl) 10.2 g/dL Low 11.7 - 16.0 g/dL [facility] Work Phone: 1 Interpretation and review of laboratory results Abnormal [facility] Work Phone: Lymphocytes (Bld) [#/Vol] 1.2 10*3/uL 1.0 - 4.3 10*3/uL [facility] Work Phone: Lymphocytes/100 WBC (Bld) 24.2 % 20.0 - 40.0 % [facility] Work Phone: MCH (RBC) [Entitic mass] 27.5 pg 26.0 - 34.0 pg [facility] Work Phone: 1 MCHC (RBC) [Mass/Vol] 32.7 % 32.0 - 36.0 % [facility] Work Phone: MCV (RBC) [Entitic vol] 84.1 fL 79.0 - 98.0 fL [facility] Work Phone: Monocytes (Bld) [#/Vol] 0.5 10*3/uL 0.0 - 0.8 10*3/uL [facility] Work Phone: [phone] Monocytes/100 WBC (Bld) 10.2 % High 2.0 - 10.0 % [facility] Work Phone: [phone] Platelet distribution width (Bld) [Ratio] 19.3 % High 11.5 - 14.5 % [facility] Work Phone: 1 Platelet mean volume (Bld) [Entitic vol] 10.2 fL 7.4 - 10.4 fL [facility] Work Phone: Platelets (Bld) [#/Vol] 187 10*3/uL 140 - 440 10*3/uL [facility] Work Phone: RBC (Bld) [#/Vol] 3.72 10*6/uL Low 3.80 - 5.2 0 10*6/uL [facility] Work Phone: WBC (Bld) [#/Vol] 5.0 10*3/uL 3.6 - 10.7 10*3/uL [facility] Work Phone: [phone] Test Performed by [facility] [employer] [facility], [address] [place] [address] [facility] Work Phone: [phone] [facility] Work Phone: [phone] EKG 12 LeadOrdered By: Chadd Hudson on 11-05-2020 makr Test Date: 2020-11-03 Pat Name: GENNY VARELA Department: [facility] Room: 135 Gender: F [employer] Supervisor: DILAN : 1950 Requested By: CHADD HUDSON Order Number: [id number] Reading MD: Ke Gonzales Measurements Intervals [place] Rate: 83 P: 41 NC: 163 QRS: 52 QRSD: 105 T: 108 QT: 426 QTc: 501 Interpretive Statements Sinus rhythm REPOL ABNRM SUGGESTS ISCHEMIA, DIFFUSE LEADS Prolonged QT interval Electronically Signed On 11-05-2020 16:39:21 EDT by Ke Gonzales [facility] Work Phone: [phone] [facility], [facility] Incoming Cardiology Results From [facility] - 11/05/2020 4:40 PM EDT makr Test Date: 2020-11-03 Pat Name: GENNY VARELA Department: 1A Room: 135 Gender: F [employer] Supervisor: DILAN : 1950 Requested By: CHADD HUDSON Order Number: [id number] Reading MD: Ke Gonzales Measurements Intervals [place] Rate: 83 P: 41 NC: 163 QRS: 52 QRSD: 105 T: 108 QT: 426 QTc: 501 Interpretive Statements Sinus rhythm REPOL ABNRM SUGGESTS ISCHEMIA, DIFFUSE LEADS Prolonged QT interval Electronically Signed On 11-05-2020 16:39:21 EDT by Ke Gonzales [facility] Work Phone: [phone] [facility] Work Phone: Hemogram w/ Autodiffon 11-05 Abs Baso Cnt 0.0 10*3/uL Normal 0.0-0.2 [facility] Comment on above: Performed By: #### B MP3M, TROPN, MG3, HEMDF, PHOS3 #### [address] [address] Abs Neutrophile Cnt 3.0 10*3/uL Normal 1.8-7.0 [facility] Comment on above: Performed By: #### B MP3M, TROPN, MG3, HEMDF, PHOS3 #### [address] [address] Basophils/100 WBC (Bld) 0.4 % Normal 0.0-2.0 [facility] Comment on above: Performed By: #### B MP3M, TROPN, MG3, HEMDF, PHOS3 #### [address] [address] Eosinophils (Bld) [#/Vol] 0.3 10*3/uL Normal 0.0-0.5 [facility] Comment on above: Performed By: #### B MP3M, TROPN, MG3, HEMDF, PHOS3 #### [address] [address] Eosinophils/100 WBC (Bld) 5.0 % Normal 1.0-6.0 [facility] Comment on above: Performed By: #### B MP3M, TROPN, MG3, HEMDF, PHOS3 #### [address] [place], [place] Erythrocyte distribution width (RBC) [Ratio] 19.3 % High 11.5-14.5 [facility] Comment on above: Performed By: #### B MP3M, TROPN, MG3, HEMDF, PHOS3 #### [address] [place], [place] Granulocytes/100 WBC (Bld) 60.2 % Normal 40.0-80.0 [facility] Comment on above: Performed By: #### B MP3M, TROPN, MG3, HEMDF, PHOS3 #### [address] [place], [place] Hematocrit (Bld) [Volume fraction] 31.2 % Low 35.0-47.0 [facility] Comment on above: Performed By: #### B MP3M, TROPN, MG3, HEMDF, PHOS3 #### [address] [place], [place] Hemoglobin (Bld) [Mass/Vol] 10.2 g/dL Low 11.7-16.0 [facility] Comment on above: Performed By: #### B MP3M, TROPN, MG3, HEMDF, PHOS3 #### [address] [place], [place] Lymphocytes (Bld) [#/Vol] 1.2 10*3/uL Normal 1.0-4.3 [facility] Comment on above: Performed By: #### B MP3M, TROPN, MG3, HEMDF, PHOS3 #### [address], [place] Lymphocytes/100 WBC (Bld) 24.2 % Normal 20.0-40.0 [facility] Comment on above: Performed By: #### B MP3M, TROPN, MG3, HEMDF, PHOS3 #### [address] [address] [place], [place] MCH (RBC) [Entitic mass] 27.5 pg Normal 26.0-34.0 [facility] Comment on above: Performed By: #### B MP3M, TROPN, MG3, HEMDF, PHOS3 #### [facility] [address] [place], [place] MCHC 32.7 % Normal 32.0-36.0 [facility] Comment on above: Performed By: #### B MP3M, TROPN, MG3, HEMDF, PHOS3 #### [address], [place] MCV (RBC) [Entitic vol] 84.1 fL Normal 79.0-98.0 [facility] Comment on above: Performed By: #### B MP3M, TROPN, MG3, HEMDF, PHOS3 #### [address] [address] [place], [place] Monocytes (Bld) [#/Vol] 0.5 10*3/uL Normal 0.0-0.8 [facility] Comment on above: Performed By: #### B MP3M, TROPN, MG3, HEMDF, PHOS3 #### [address] [address] [place], [place] Monocytes/100 WBC (Bld) 10.2 % High 2.0-10.0 [facility] Comment on above: Performed By: #### B MP3M, TROPN, MG3, HEMDF, PHOS3 #### [address] [place], [place] Platelet mean volume (Bld) [Entitic vol] 10.2 fL Normal 7.4-10.4 [facility] Comment on above: Performed By: #### B MP3M, TROPN, MG3, HEMDF, PHOS3 #### [address] Platelets (Bld) [#/Vol] 187 10*3/uL Normal 140-440 [facility] Comment on above: Performed By: #### B MP3M, TROPN, MG3, HEMDF, PHOS3 #### [address] [place] [address] RBC (Bld) [#/Vol] 3.72 10*6/uL Low 3.80-5.20 [facility] Comment on above: Performed By: #### B MP3M, TROPN, MG3, HEMDF, PHOS3 #### [address] [address] [place] [address] WBC (Bld) [#/Vol] 5.0 10*3/uL Normal 3.6-10.7 [facility] Comment on above: Performed By: #### B MP3M, TROPN, MG3, HEMDF, PHOS3 #### [address] [address] [place] [address] Magnesiumon 11-05-2020 Magnesium [Mass/Vol] 1.7 mg/dL Normal 1.6-2.3 [facility] Comment on above: Performed By: #### B MP3M, TROPN, MG3, HEMDF, PHOS3 #### [address] [address] [place], [place] MagnesiumOrdered By: Munira Henry on 11-05-2020 Magnesium [Mass/Vol] 1.7 mg/dL 1.6 - 2 .3 mg/dL [facility] Work Phone: No Panel InformationOrdered By: Peggy Henry on 11-05-2020 Test Performed by [facility], [address] [place] [address] [facility] Work Phone: [facility] Work Phone: Phosphoruson 11-05-2020 Phosphate [Mass/Vol] 3.5 mg/dL Normal 2.5-4.5 [facility] Comment on above: Performed By: #### B MP3M, TROPN, MG3, HEMDF, PHOS3 #### [address] [address] [place] [address] PhosphorusOrdered By: Elias Henry on 11-05-2020 Phosphate [Mass/Vol] 3.5 mg/dL 2.5 - 4 .5 mg/dL [facility] Work Phone: TroponinOrdered By: Peggy Henry on 11-05-2020 Interpretation and review of laboratory results Abnormal [facility] Work Phone: [phone] Troponin I.cardiac [Mass/Vol] 0.182 ng/mL High 0.000 - 0.034 ng/mL [facility] Work Phone: [phone] Comment on above: . Test Performed by [facility], [address] [place] [id number] [facility] Work Phone: [phone] [facility] Work Phone: Troponin Ion 11-05-2020 Troponin I.cardiac [Mass/Vol] 0.182 ng/mL High 0.000-0.034 [facility] Comment on above: Result Comment: . Performed By: #### B MP3M, TROPN, MG3, HEMDF, PHOS3 #### makr [address] [place] [id number] VL PRE OP VEIN MAPPINGOrdere d By: Peggy Henry on 11-05-2020 [facility] Bilateral LE Vein Mapping For Bypass Report Patient Genny Varela : 1950 Study 11/04/2020 Name: Karen (70yrs) Date: Age: 70 Account: [id number] Gender: F Loc: BP: Ordering Physician: Peggy Henry Drafter Commercial: Aspen Velasquez RDMS, RVT Interpreting Physician: Danny Muñoz MD Location: [facility] Indications: Preop CABG. Conclusions 1. There is no evidence of superficial vein thrombosis noted in the right great saphenous vein and left great saphenous vein. 2. Vein sizes as noted below. History: Risk factors: Age over 65 years. Study data: Bilateral lower extremity vein mapping. Grayscale 2D imaging. Location: Vascular laboratory. Procedure: Images were obtained using a Poly[employer]iva E9 vascular ultrasound machine. Vein mapping: + +--------- ---+--------+ +Location +Diameter AP*+Comments+ + +--------- ---+--------+ +R saph-femoral junction - prox. (thigh)+5.46 mm +--------+ + +--------- ---+--------+ +R GSV - prox. (thigh) +2.65 mm +--------+ + +--------- ---+--------+ +R GSV - mid (thigh) +2.33 mm +Branch. + + +--------- ---+--------+ +R GSV - distal (thigh) +2.18 mm +--------+ + +--------- ---+--------+ +R GSV - distal (knee) +2.65 mm +--------+ + +--------- ---+--------+ +R GSV - prox. (calf) +2.02 mm +--------+ + +--------- ---+--------+ +R GSV - mid (calf) +2.08 mm +--------+ + +--------- ---+--------+ +R GSV - distal (calf) +2.13 mm +--------+ + +--------- ---+--------+ +L saph-femoral junction - prox. (thigh)+5.65 mm +--------+ + +--------- ---+--------+ +L GSV - prox. (thigh) +3.74 mm +Branch. + + +--------- ---+--------+ +L GSV - mid (thigh) +2.70 mm +--------+ + +--------- ---+--------+ +L GSV - distal (thigh) +2.70 mm +Branch. + + +--------- ---+--------+ +L GSV - distal (knee) +2.86 mm +--------+ + +--------- ---+--------+ +L GSV - prox. (calf) +1.24 mm +Branch. + + +--------- ---+--------+ +L GSV - mid (calf) +1.66 mm +--------+ + +--------- ---+--------+ +L GSV - distal (calf) +1.87 mm +Branch. + + +--------- ---+--------+ *Length measurements, e.g. diameters, are expressed in mm Prepared and electronically signed by Danny Muñoz MD 11/05/2020 10:10 [facility] Work Phone: [facility] Incoming Cardiology Results From Merge/[facility]any - 11/05/2020 10:10 AM EDT [facility] Bilateral LE Vein Mapping For Bypass Report Patient Genny Varela : 1950 Study 11/04/2020 Name: Karen (70yrs) Date: Age: 70 Account: [id number] Gender: F Loc: BP: Ordering Physician: Peggy Henry Drafter Commercial: Aspen Velasquez RDMS, RVT Interpreting Physician: Danny Muñoz MD Location: [facility] Indications: Preop CABG. Conclusions 1. There is no evidence of superficial vein thrombosis noted in the right great saphenous vein and left great saphenous vein. 2. Vein sizes as noted below. History: Risk factors: Age over 65 years. Study data: Bilateral lower extremity vein mapping. Grayscale 2D imaging. Location: Vascular laboratory. Procedure: Images were obtained using a PolyActiva E9 vascular ultrasound machine. Vein mapping: + +--------- ---+--------+ +Location +Diameter AP*+Comments+ + +--------- ---+--------+ +R saph-femoral junction - prox. (thigh)+5.46 mm +--------+ + +--------- ---+--------+ +R GSV - prox. (thigh) +2.65 mm +--------+ + +--------- ---+--------+ +R GSV - mid (thigh) +2.33 mm +Branch. + + +--------- ---+--------+ +R GSV - distal (thigh) +2.18 mm +--------+ + +--------- ---+--------+ +R GSV - distal (knee) +2.65 mm +--------+ + +--------- ---+--------+ +R GSV - prox. (calf) +2.02 mm +--------+ + +--------- ---+--------+ +R GSV - mid (calf) +2.08 mm +--------+ + +--------- ---+--------+ +R GSV - distal (calf) +2.13 mm +--------+ + +--------- ---+--------+ +L saph-femoral junction - prox. (thigh)+5.65 mm +--------+ + +--------- ---+--------+ +L GSV - prox. (thigh) +3.74 mm +Branch. + + +--------- ---+--------+ +L GSV - mid (thigh) +2.70 mm +--------+ + +--------- ---+--------+ +L GSV - distal (thigh) +2.70 mm +Branch. + + +--------- ---+--------+ +L GSV - distal (knee) +2.86 mm +--------+ + +--------- ---+--------+ +L GSV - prox. (calf) +1.24 mm +Branch. + + +--------- ---+--------+ +L GSV - mid (calf) +1.66 mm +--------+ + +--------- ---+--------+ +L GSV - distal (calf) +1.87 mm +Branch. + + +--------- ---+--------+ *Length measurements, e.g. diameters, are expressed in mm Prepared and electronically signed by Danny Muñoz MD 11/05/2020 10:10 [facility] Work Phone: [facility] Work Phone: APTTon 11-04-2020 aPTT Coag (Bld) [Time] 47.1 s High 20.0-30.5 [facility] Comment on above: Result Comment: NOTE : The therapeutic time for Heparin anticoagulation, based on Xa activity inhibition, is an APTT of 46-80 seconds. Performed By: #### B MP3M, TROPN, MG3, HEMDF, PHOS3 #### [facility] [address] [place] [id number] APTTOrdered By: Peggy barillas on 11-04-2020 aPTT Coag (Bld) [Time] 47.1 s High 20.0 - 30.5 s [facility] Work Phone: Comment on above: NOTE: The therapeuti c time for Heparin anticoagulation, based on Xa activity inhibition, is an APTT of 46-80 seconds. Interpretation and review of laboratory results Abnormal [facility] Work Phone: [phone] Test Performed by [facility], [address] [place] [address] [facility] Work Phone: [phone] [facility] Work Phone: [phone] Basic Metabolic Panelon 07-0 -2020 Anion gap [Moles/Vol] 5 mmol/L Normal 3-13 [facility] Comment on above: Performed By: #### M G3, HEMDF, BMP3M, PHOS3 #### [place] [address] [place] [address] Calcium [Mass/Vol] 9.1 mg/dL Normal 8.4-10.4 [facility] Comment on above: Performed By: #### M G3, HEMDF, BMP3M, PHOS3 #### [place] [address] [place] [address] CO2 [Moles/Vol] 24 mmol/L Normal 22-30 [facility] Comment on above: Performed By: #### M G3, HEMDF, BMP3M, PHOS3 #### [place] [address] [place] [address] Glucose [Mass/Vol] 114 mg/dL High 70-100 [facility] Comment on above: Performed By: #### M G3, HEMDF, BMP3M, PHOS3 #### [address] [place] [place] [address] Urea nitrogen [Mass/Vol] 10 mg/dL Normal 7-20 [facility] Comment on above: Performed By: #### M G3, HEMDF, BMP3M, PHOS3 #### [facility] [address] [place] [address] Creatinine [Mass/Vol] 0.55 mg/dL Normal 0.52-1.25 [facility] Comment on above: Performed By: #### M G3, HEMDF, BMP3M, PHOS3 #### [facility] [address] [place] [address] eGFR OTHER > 90.0 Normal >60 [facility] Comment on above: Result Comment: KDIG O guidelines provide the following GFR categories: Stage GFR(ml/min/1.73 m2) Terms G1 >=90 Normal or high G2 60-89 Mildly decreased* G3a 45-59 Mildly to moderately decreased G3b 30-44 Moderately to severely decreased G4 15-29 Severely decreased G5 <15 Kidney failure *Relative to young adult level. In the absence of evidence of kidney damage, neither GFR category G1 nor G2 fulfill the criteria for CKD. The CKD-EPI equation is validated in individuals 18 years of age and older. Currently the best equation for estimating glomerular filtration rate (GFR) from serum creatinine in children is the Bedside Morales equation. It is less accurate in patients with extremes of muscle mass, restriction of dietary protein, ingestion of creatine, extra-renal metabolism of creatinine, or treatment with medications that affect renal tubular creatinine secretion. Performed By: #### M G3, HEMDF, BMP3M, PHOS3 #### [address] GFR/1.73 sq M.predicted among blacks MDRD (S/P/Bld) [Vol rate/Area] mL/min/{1.73_m2} Normal >60 [facility] Comment on above: Performed By: #### M G3, HEMDF, BMP3M, PHOS3 #### [address] Potassium [Moles/Vol] 3.9 mmol/L Normal 3.5-5.1 [facility] Comment on above: Performed By: #### M G3, HEMDF, BMP3M, PHOS3 #### [address] Sodium [Moles/Vol] 139 mmol/L Normal 135-145 [facility] Comment on above: Performed By: #### M G3, HEMDF, BMP3M, PHOS3 #### [address] Chloride [Moles/Vol] 110 mmol/L High 98-107 [facility] Comment on above: Performed By: #### M G3, HEMDF, BMP3M, PHOS3 #### [address] Calcium [Mass/Vol] 8.6 mg/dL Normal 8.4-10.4 [facility] Comment on above: Performed By: #### M G3, HEMDF, BMP3M, PHOS3 #### [facility] [address], [place] Anion gap [Moles/Vol] 6 mmol/L Normal 3-13 [facility] Comment on above: Performed By: #### M G3, HEMDF, BMP3M, PHOS3 #### [facility] [address], [place] CO2 [Moles/Vol] 20 mmol/L Low 22-30 [facility] Comment on above: Performed By: #### M G3, HEMDF, BMP3M, PHOS3 #### [place] [address] [place], [place] Creatinine [Mass/Vol] 0.57 mg/dL Normal 0.52-1.25 [facility] Comment on above: Performed By: #### M G3, HEMDF, BMP3M, PHOS3 #### [place] [address] [place], [place] eGFR OTHER > 90.0 Normal >60 [facility] Comment on above: Result Comment: KDIG O guidelines provide the following GFR categories: Stage GFR(ml/min/1.73 m2) Terms G1 >=90 Normal or high G2 60-89 Mildly decreased* G3a 45-59 Mildly to moderately decreased G3b 30-44 Moderately to severely decreased G4 15-29 Severely decreased G5 <15 Kidney failure *Relative to young adult level. In the absence of evidence of kidney damage, neither GFR category G1 nor G2 fulfill the criteria for CKD. The CKD-EPI equation is validated in individuals 18 years of age and older. Currently the best equation for estimating glomerular filtration rate (GFR) from serum creatinine in children is the Bedside Morales equation. It is less accurate in patients with extremes of muscle mass, restriction of dietary protein, ingestion of creatine, extra-renal metabolism of creatinine, or treatment with medications that affect renal tubular creatinine secretion. Performed By: #### M G3, HEMDF, BMP3M, PHOS3 #### [place] [address] [place], [place] GFR/1.73 sq M.predicted among blacks MDRD (S/P/Bld) [Vol rate/Area] mL/min/{1.73_m2} Normal >60 [facility] Comment on above: Performed By: #### M G3, HEMDF, BMP3M, PHOS3 #### [facility] [address], [place] Glucose [Mass/Vol] 135 mg/dL High 70-100 [facility] Comment on above: Performed By: #### M G3, HEMDF, BMP3M, PHOS3 #### [facility] [address], [place] Urea nitrogen [Mass/Vol] 12 mg/dL Normal 7-20 [facility] Comment on above: Performed By: #### Ismael G3, HEMDF, BMP3M, PHOS3 #### [place] [address] [place], [place] Potassium [Moles/Vol] 4.0 mmol/L Normal 3.5-5.1 [facility] Comment on above: Performed By: #### Ismael G3, HEMDF, BMP3M, PHOS3 #### [facility] [address], [place] Sodium [Moles/Vol] 137 mmol/L Normal 135-145 [facility] Comment on above: Performed By: #### M G3, HEMDF, BMP3M, PHOS3 #### [facility] [address], [place] Chloride [Moles/Vol] 111 mmol/L High 98-107 [facility] Comment on above: Performed By: #### M G3, HEMDF, BMP3M, PHOS3 #### [facility] [address] [place] [address] Basic Metabolic Panel w/ Ref [place] to MGOrdered By: Peggy Henry on 11-04-2020 Anion gap [Moles/Vol] 5 mmol/L 3 - 13 mmol/L [facility] Work Phone: Calcium [Mass/Vol] 9.1 mg/dL 8.4 - 10. 4 mg/dL [facility] Work Phone: Chloride [Moles/Vol] 110 mmol/L High 98 - 10 7 mmol/L [facility] Work Phone: [phone] CO2 [Moles/Vol] 24 mmol/L 22 - 30 mmol/L [facility] Work Phone: [phone] Creatinine [Mass/Vol] 0.55 mg/dL 0.52 - 1.25 mg/dL [facility] Work Phone: [phone] EGFR IF NonAfrican Czech >90.0 >60 mL/min [facility] Work Phone: Comment on above: KDIGO guidelines pro vide the following GFR categories: Stage GFR(ml/min/1.73 m2) Terms G1 >=90 Normal or high G2 60-89 Mildly decreased* G3a 45-59 Mildly to moderately decreased G3b 30-44 Moderately to severely decreased G4 15-29 Severely decreased G5 <15 Kidney failure *Relative to young adult level. In the absence of evidence of kidney damage, neither GFR category G1 nor G2 fulfill the criteria for CKD. The CKD-EPI equation is validated in individuals 18 years of age and older. Currently the best equation for estimating glomerular filtration rate (GFR) from serum creatinine in children is the Bedside Morales equation. It is less accurate in patients with extremes of muscle mass, restriction of dietary protein, ingestion of creatine, extra-renal metabolism of creatinine, or treatment with medications that affect renal tubular creatinine secretion. GFR/1.73 sq M.predicted among blacks MDRD (S/P/Bld) [Vol rate/Area] mL/min/{1.73_m2} >60 mL/min [facility] Work Phone: [phone] Glucose [Mass/Vol] 114 mg/dL High 70 - 100 mg/dL [facility] Work Phone: [phone] Interpretation and review of laboratory results Abnormal [facility] Work Phone: [phone] Potassium [Moles/Vol] 3.9 mmol/L 3.5 - 5.1 mmol/L [facility] Work Phone: [phone] Sodium [Moles/Vol] 139 mmol/L 135 - 145 mmol/L [facility] Work Phone: [phone] Urea nitrogen (BldV) [Mass/Vol] 10 mg/dL 7 - 20 mg/dL [facility] Work Phone: [phone] CBC Auto DifferentialOrdered By: Peggy Henry on 11-04-2020 Absolute Baso # 0.0 10*3/uL 0.0 - 0.2 10*3/uL [facility] Work Phone: Absolute Neut # 3.5 10*3/uL 1.8 - 7.0 10*3/uL [facility] Work Phone: Basophils/100 WBC (Bld) 0.5 % 0.0 - 2.0 % [facility] Work Phone: Eosinophils (Bld) [#/Vol] 0.3 10*3/uL 0.0 - 0.5 10*3/uL [facility] Work Phone: Eosinophils/100 WBC (Bld) 6.2 % High 1.0 - 6.0 % [facility] Work Phone: Granulocytes/100 WBC (Bld) 66.6 % 40.0 - 80.0 % [facility] Work Phone: Hematocrit (Bld) [Volume fraction] 33.0 % Low 35.0 - 47.0 % [facility] Work Phone: Hemoglobin.gastrointes tinal spec 1 Ql (Stl) 10.7 g/dL Low 11.7 - 16.0 g/dL [facility] Work Phone: [phone] Interpretation and review of laboratory results Abnormal [facility] Work Phone: Lymphocytes (Bld) [#/Vol] 1.0 10*3/uL 1.0 - 4.3 10*3/uL [facility] Work Phone: [phone] Lymphocytes/100 WBC (Bld) 18.4 % Low 20.0 - 40.0 % [facility] Work Phone: [phone] MCH (RBC) [Entitic mass] 27.3 pg 26.0 - 34.0 pg [facility] Work Phone: [phone] MCHC (RBC) [Mass/Vol] 32.4 % 32.0 - 36.0 % [facility] Work Phone: [phone] MCV (RBC) [Entitic vol] 84.2 fL 79.0 - 98.0 fL [facility] Work Phone: [phone] Monocytes (Bld) [#/Vol] 0.4 10*3/uL 0.0 - 0.8 10*3/uL [facility] Work Phone: [phone] Monocytes/100 WBC (Bld) 8.3 % 2.0 - 10.0 % [facility] Work Phone: [phone] Platelet distribution width (Bld) [Ratio] 19.1 % High 11.5 - 14.5 % [facility] Work Phone: [phone] Platelet mean volume (Bld) [Entitic vol] 9.7 fL 7.4 - 10.4 fL [facility] Work Phone: [phone] Platelets (Bld) [#/Vol] 173 10*3/uL 140 - 440 10*3/uL [facility] Work Phone: [phone] RBC (Bld) [#/Vol] 3.92 10*6/uL 3.80 - 5.2 0 10*6/uL [facility] Work Phone: [phone] WBC (Bld) [#/Vol] 5.3 10*3/uL 3.6 - 10.7 10*3/uL [facility] Work Phone: [phone] Test Performed by [facility], [address] [place] [id number] [facility] Work Phone: [phone] [facility] Work Phone: [phone] CR Chest PA/LATon 11-04-2020 CR Chest PA/LAT Patient Name: GENNY VARELA Diagnostic Radiology ACCESSION EXAM DATE/TIME PROCEDURE ORDERING PROVIDER [id number] 11/03/2020 23:57 EDT CR Chest PA and LAT [facility]ULMA MUJICA CPT code 09847 Reason For Exam (CR Chest PA and LAT) Pre-op CABG Report Indication: Pre-CABG. Comparison: None. Technique: A single frontal view of chest was obtained. Findings: Trachea is midline. The lungs are clear. No pleural effusion or pneumothorax. The cardiomediastinal silhouette is normal. Pulmonary vasculature is normal. Atherosclerosis is evident. Impression: No acute findings. Report Dictated on Final Dictated: 11/04/2020 8:46 am Dictating Physician: MD GOMEZ TOM A Signed Date and Time: 11/04/2020 8:47 am Signed by: MD GOMEZ TOM A Transcribed Date and Time: 11/04/2020 8:46 Normal [facility] ECHO Complete 2D W Doppler W ColorOrdered By: Peggy Henry on 11-04-2020 TRANSTHORACIC ECHOCARDIOGRAM PATIENT: Genny Varela STUDY DATE: 11/04/2020 : 1950 AGE: 70 HT/WT: 152.4 cm (60 66.7 kg (146.7 in) lb) GENDER: F BP: 117 / 79 LOCATION: [facility] PATIENT Inpatient main STATUS: *ORDERING PHYSICIAN: * Chadd Hudson *READING PHYSICIAN: * Toni Lane *COMMERCIAL ROOFING ESTIMATOR: * Rosenda Corea MD RDCS,AE, PE, RVT INDICATIONS: MV CAD. CONCLUSIONS SUMMARY: 1. Left ventricle: The cavity size is normal. Wall thickness is normal. Systolic function is by the biplane method of disks. The estimated ejection fraction is 72%. There are no regional wall motion abnormalities. E/e' average: 4 This value generally correlates with a low(<8) wedge pressure. 2. There is a non-specific increase in the left ventricular outflow tract velocity at 2.3 m/sec. It may be due to increased contractility. There does not appear to be subaortic stenosis by the ventricular septum. 3. Right ventricle: Systolic function is normal. 4. Left atrium: The atrium is normal in size. 5. Aortic valve: Mildly thickened, mildly calcified leaflets. STUDY DATA: Complete transthoracic echocardiogram. Procedure: Image quality was suboptimal. The study was technically limited due to poor acoustic window availability. Intravenous imaging enhancement (Definity) was administered to opacify the chamber. Definity lot #: [id number]. M-mode, complete 2D, complete spectral Doppler, and color flow Doppler images were acquired and archived for permanent storage and are available for subsequent review. Study status: Routine. Patient status: Inpatient. FINDINGS LEFT VENTRICLE: The cavity size is normal. Wall thickness is normal. Systolic function is by the biplane method of disks. The estimated ejection fraction is 72%. There are no regional wall motion abnormalities. Left ventricular diastolic function parameters are normal. E/e' average: 4 This value generally correlates with a low(<8) wedge pressure. RIGHT VENTRICLE: The cavity size is normal. Systolic function is normal. Right ventricular systolic pressure is within the normal range. VENTRICULAR SEPTUM: There is no evidence of a ventricular septal defect. LEFT ATRIUM: The atrium is normal in size. RIGHT ATRIUM: The atrium is normal in size. ATRIAL SEPTUM: Color Doppler shows no shunt. MITRAL VALVE: Structurally normal valve. Doppler: There is no regurgitation. The valve area by pressure half-time is 6.2 cm^2. The valve area (LVOT continuity) is 1.4 cm^2. The mean diastolic gradient is 1 mm Hg. The peak diastolic gradient is 5 mm Hg. AORTIC VALVE: Not well visualized. Mildly thickened, mildly calcified leaflets. Doppler: There is no stenosis. There is no regurgitation. Dimensionless index: 0.46. The valve area by the velocity-time integral method is 1.5 cm^2. The valve area index by the velocity-time integral method is 0.9 cm^2/m^2. The mean systolic gradient is 3 mm Hg. The peak systolic gradient is 6 mm Hg. The peak systolic velocity is 1.2 m/sec. TRICUSPID VALVE: Structurally normal valve. Doppler: There is trivial, less than 1+ regurgitation. PULMONIC VALVE: Structurally normal valve. Doppler: There is trivial, less than 1+ regurgitation. AORTA: The aorta is poorly visualized and normal. PULMONARY ARTERY: Main pulmonary artery: Normal. PERICARDIUM: There is no pericardial effusion. SYSTEMIC VEINS: Not well visualized. Measurements Left ventricle Value Reference LV ID, ED (L) 2.6 cm 3.8 - 5.2 LV ID, ES (L) 1.6 cm 2.2 - 3.5 LV ID/bsa, ED (L) 1.5 cm/m^2 2.3 - 3.1 LV ID/bsa, ES (L) 1.0 cm/m^2 1.3 - 2.1 Stroke volume/bsa, 1-p A2C 52.7 ml/m^2 --------- LV end-diastolic volume, 1-p A4C (H) 144 ml 48 - 140 LV end-systolic volume, 1-p A4C 43 ml 12 - 60 LV end-diastolic volume, 2-p (H) 144 ml 46 - 106 LV end-systolic volume, 2-p 41 ml 14 - 42 LV ejection fraction, 2-p 72 % 54 - 74 LV E/e', medial 4.3 --------- LVOT Value Referenc (more content not included)... [facility] Work Phone: Mayelin Mohr Incoming Cardiology Results From [facility] - 11/04/2020 12:33 PM EDT TRANSTHORACIC ECHOCARDIOGRAM PATIENT: Genny Varela STUDY DATE: 11/04/2020 : 1950 AGE: 70 HT/WT: 152.4 cm (60 66.7 kg (146.7 in) lb) GENDER: F BP: 117 / 79 LOCATION: [facility] PATIENT Inpatient main STATUS: *ORDERING PHYSICIAN: * Chadd Hudson *READING PHYSICIAN: * Toni Lane *COMMERCIAL ROOFING ESTIMATOR: * Rosenda Corea MD RDCS,AE, PE, RVT INDICATIONS: MV CAD. CONCLUSIONS SUMMARY: 1. Left ventricle: The cavity size is normal. Wall thickness is normal. Systolic function is by the biplane method of disks. The estimated ejection fraction is 72%. There are no regional wall motion abnormalities. E/e' average: 4 This value generally correlates with a low(<8) wedge pressure. 2. There is a non-specific increase in the left ventricular outflow tract velocity at 2.3 m/sec. It may be due to increased contractility. There does not appear to be subaortic stenosis by the ventricular septum. 3. Right ventricle: Systolic function is normal. 4. Left atrium: The atrium is normal in size. 5. Aortic valve: Mildly thickened, mildly calcified leaflets. STUDY DATA: Complete transthoracic echocardiogram. Procedure: Image quality was suboptimal. The study was technically limited due to poor acoustic window availability. Intravenous imaging enhancement (Definity) was administered to opacify the chamber. Definity lot #: [id number]. M-mode, complete 2D, complete spectral Doppler, and color flow Doppler images were acquired and archived for permanent storage and are available for subsequent review. Study status: Routine. Patient status: Inpatient. FINDINGS LEFT VENTRICLE: The cavity size is normal. Wall thickness is normal. Systolic function is by the biplane method of disks. The estimated ejection fraction is 72%. There are no regional wall motion abnormalities. Left ventricular diastolic function parameters are normal. E/e' average: 4 This value generally correlates with a low(<8) wedge pressure. RIGHT VENTRICLE: The cavity size is normal. Systolic function is normal. Right ventricular systolic pressure is within the normal range. VENTRICULAR SEPTUM: There is no evidence of a ventricular septal defect. LEFT ATRIUM: The atrium is normal in size. RIGHT ATRIUM: The atrium is normal in size. ATRIAL SEPTUM: Color Doppler shows no shunt. MITRAL VALVE: Structurally normal valve. Doppler: There is no regurgitation. The valve area by pressure half-time is 6.2 cm^2. The valve area (LVOT continuity) is 1.4 cm^2. The mean diastolic gradient is 1 mm Hg. The peak diastolic gradient is 5 mm Hg. AORTIC VALVE: Not well visualized. Mildly thickened, mildly calcified leaflets. Doppler: There is no stenosis. There is no regurgitation. Dimensionless index: 0.46. The valve area by the velocity-time integral method is 1.5 cm^2. The valve area index by the velocity-time integral method is 0.9 cm^2/m^2. The mean systolic gradient is 3 mm Hg. The peak systolic gradient is 6 mm Hg. The peak systolic velocity is 1.2 m/sec. TRICUSPID VALVE: Structurally normal valve. Doppler: There is trivial, less than 1+ regurgitation. PULMONIC VALVE: Structurally normal valve. Doppler: There is trivial, less than 1+ regurgitation. AORTA: The aorta is poorly visualized and normal. PULMONARY ARTERY: Main pulmonary artery: Normal. PERICARDIUM: There is no pericardial effusion. SYSTEMIC VEINS: Not well visualized. Measurements Left ventricle Value Reference LV ID, ED (L) 2.6 cm 3.8 - 5.2 LV ID, ES (L) 1.6 cm 2.2 - 3.5 LV ID/bsa, ED (L) 1.5 cm/m^2 2.3 - 3.1 LV ID/bsa, ES (L) 1.0 cm/m^2 1.3 - 2.1 Stroke volume/bsa, 1-p A2C 52.7 ml/m^2 --------- LV end-diastolic volume, 1-p A4C (H) 144 ml 48 - 140 LV end-systolic volume, 1-p A4C 43 ml 12 - 60 LV end-diastolic volume, 2-p (H) 144 ml 46 - 106 LV end-systolic volume, 2-p 41 ml 14 - 42 LV ejection fraction, 2-p 72 % 54 - 74 LV E/e', medial 4.3 --------- LVOT Value Reference LVOT ID, A-P 2.0 cm --------- LVOT mean velocity, S 0.4 m/sec --------- LVOT peak gradient, S 1 mm Hg --------- Stroke volume (SV), LVOT DP 32 ml --------- Stroke index (SV/bsa), LVOT DP 19 ml/m^2 --------- Aortic valve Value Reference Aortic valve peak velocity, S 1.2 m/sec --------- Aortic valve mean velocity, S 0.8 m/sec --------- Aortic mean gradient, S 3 mm Hg --------- Aortic peak gradient, S 6 m (more content not included)... [facility] Work Phone: [facility] Work Phone: Echo Complete w/wo Contrasto n 11-04-2020 Echo Complete w/wo Contrast Patient Name: GENNY VARELA Ultrasound ACCESSION EXAM DATE/TIME PROCEDURE ORDERING PROVIDER [id number] 11/04/2020 11:55 EDT Echo Complete w/wo DO HUDSON PAUL Contrast Reason For Exam (Echo Complete w/wo Contrast) mvcad Report TRANSTHORACIC ECHOCARDIOGRAM PATIENT: Genny Varela STUDY DATE: 11/04/2020 : 1950 AGE: 70 HT/WT: 152.4 cm (60 66.7 kg (146.7 in) lb) GENDER: F BP: 117 / 79 LOCATION: [facility] PATIENT Inpatient main STATUS: *ORDERING PHYSICIAN: * Chadd Hudson *READING PHYSICIAN: * Toni Lane *COMMERCIAL ROOFING ESTIMATOR: * Rosenda Corea MD RDCS,AE, PE, RVT INDICATIONS: MV CAD. CONCLUSIONS SUMMARY: 1. Left ventricle: The cavity size is normal. Wall thickness is normal. Systolic function is by the biplane method of disks. The estimated ejection fraction is 72%. There are no regional wall motion abnormalities. E/e' average: 4 This value generally correlates with a low(<8) wedge pressure. 2. There is a non-specific increase in the left ventricular outflow tract velocity at 2.3 m/sec. It may be due to increased contractility. There does not appear to be subaortic stenosis by the ventricular septum. 3. Right ventricle: Systolic function is normal. 4. Left atrium: The atrium is normal in size. 5. Aortic valve: Mildly thickened, mildly calcified leaflets. STUDY DATA: Complete transthoracic echocardiogram. Procedure: Image quality was suboptimal. The study was technically limited due to poor acoustic window availability. Intravenous imaging enhancement (Definity) was administered to opacify the chamber. Definity lot #: [id number]. M-mode, complete 2D, complete spectral Doppler, and color flow Doppler images were acquired and archived for permanent storage and are available for subsequent review. Study status: Routine. Patient status: Inpatient. Ultrasound Report FINDINGS LEFT VENTRICLE: The cavity size is normal. Wall thickness is normal. Systolic function is by the biplane method of disks. The estimated ejection fraction is 72%. There are no regional wall motion abnormalities. Left ventricular diastolic function parameters are normal. E/e' average: 4 This value generally correlates with a low(<8) wedge pressure. RIGHT VENTRICLE: The cavity size is normal. Systolic function is normal. Right ventricular systolic pressure is within the normal range. VENTRICULAR SEPTUM: There is no evidence of a ventricular septal defect. LEFT ATRIUM: The atrium is normal in size. RIGHT ATRIUM: The atrium is normal in size. ATRIAL SEPTUM: Color Doppler shows no shunt. MITRAL VALVE: Structurally normal valve. Doppler: There is no regurgitation. The valve area by pressure half-time is 6.2 cm^2. The valve area (LVOT continuity) is 1.4 cm^2. The mean diastolic gradient is 1 mm Hg. The peak diastolic gradient is 5 mm Hg. AORTIC VALVE: Not well visualized. Mildly thickened, mildly calcified leaflets. Doppler: There is no stenosis. There is no regurgitation. Dimensionless index: 0.46. The valve area by the velocity-time integral method is 1.5 cm^2. The valve area index by the velocity-time integral method is 0.9 cm^2/m^2. The mean systolic gradient is 3 mm Hg. The peak systolic gradient is 6 mm Hg. The peak systolic velocity is 1.2 m/sec. TRICUSPID VALVE: Structurally normal valve. Doppler: There is trivial, less than 1+ regurgitation. PULMONIC VALVE: Structurally normal valve. Doppler: There is trivial, less than 1+ regurgitation. AORTA: The aorta is poorly visualized and normal. PULMONARY ARTERY: Main pulmonary artery: Normal. PERICARDIUM: There is no pericardial effusion. SYSTEMIC VEINS: Not well visualized. Measurements Left ventricle Value Reference LV ID, ED (L) 2.6 cm 3.8 - 5.2 LV ID, ES (L) 1.6 cm 2.2 - 3.5 LV ID/bsa, ED (L) 1.5 cm/m^2 2.3 - 3.1 LV ID/bsa, ES (L) 1.0 cm/m^2 1.3 - 2.1 Stroke volume/bsa, 1-p A2C 52.7 ml/m^2 --------- LV end-diastolic volume, 1-p A4C (H) 144 ml 48 - 140 LV end-systolic volume, 1-p A4C 43 ml 12 - 60 LV end-diastolic volume, 2-p (H) 144 ml 46 - 106 LV end-systolic volume, 2-p 41 ml 14 - 42 LV ejection fraction, 2-p 72 % 54 - 74 LV E/e', medial 4.3 --------- LVOT Value Reference LVOT ID, A-P 2.0 cm --------- LVOT mean velocity, S 0.4 m/sec --------- LVOT peak gradient, S 1 mm Hg --------- Stroke volume (SV), LVOT DP 32 ml --------- Stroke index (SV/bsa), LVOT DP 19 ml/m^2 --------- Aortic valve Value Reference Aortic valve peak veloci (more content not included)... Normal [facility] Hemoglobin A1Con 11-04-2020 Glucose [Mass/Vol] 140 mg/dL Normal [facility] Comment on above: Performed By: #### M G3, HEMDF, BMP3M, PHOS3 #### [address] [address] HbA1c (Bld) [Mass fraction] 6.5 % Abnormal [facility] Comment on above: Result Comment: Norm al less than 5.7% Prediabetes 5.7% to 6.4% Diabetes 6.5% or higher --HgbA1C levels may not be accurate in patients who have renal disease, received recent blood transfusions, are anemic, or who have dyshemoglobinemia. Performed By: #### M G3, HEMDF, BMP3M, PHOS3 #### [address] [address] Hemoglobin [id number] By: Nick Henry on 11-04-2020 HbA1c (Bld) [Mass fraction] 6.5 % Abnormal [facility] Work Phone: Comment on above: Normal less than 5.7 % Prediabetes 5.7% to 6.4% Diabetes 6.5% or higher --HgbA1C levels may not be accurate in patients who have renal disease, received recent blood transfusions, are anemic, or who have dyshemoglobinemia. Interpretation and review of laboratory results Abnormal [facility] Work Phone: Magnesium [Mass/Vol] 140 mg/dL [facility] Work Phone: Test Performed by [facility], [address] [place] [address] [facility] Work Phone: [facility] Work Phone: Hemogram w/ Autodiffon 11-04 Abs Baso Cnt 0.0 10*3/uL Normal 0.0-0.2 [facility] Comment on above: Performed By: #### M G3, HEMDF, BMP3M, PHOS3 #### [address] [place] [address] Abs Neutrophile Cnt 3.5 10*3/uL Normal 1.8-7.0 [facility] Comment on above: Performed By: #### M G3, HEMDF, BMP3M, PHOS3 #### [address] [place] [address] Basophils/100 WBC (Bld) 0.5 % Normal 0.0-2.0 [facility] Comment on above: Performed By: #### M G3, HEMDF, BMP3M, PHOS3 #### [address] [place], [place] Eosinophils (Bld) [#/Vol] 0.3 10*3/uL Normal 0.0-0.5 [facility] Comment on above: Performed By: #### M G3, HEMDF, BMP3M, PHOS3 #### [address] [place] [address] Eosinophils/100 WBC (Bld) 6.2 % High 1.0-6.0 [facility] Comment on above: Performed By: #### M G3, HEMDF, BMP3M, PHOS3 #### [address] [place] [address] Erythrocyte distribution width (RBC) [Ratio] 19.1 % High 11.5-14.5 [facility] Comment on above: Performed By: #### M G3, HEMDF, BMP3M, PHOS3 #### [address] [place] [address] Granulocytes/100 WBC (Bld) 66.6 % Normal 40.0-80.0 [facility] Comment on above: Performed By: #### M G3, HEMDF, BMP3M, PHOS3 #### [address] [place], [place] Hematocrit (Bld) [Volume fraction] 33.0 % Low 35.0-47.0 [facility] Comment on above: Performed By: #### M G3, HEMDF, BMP3M, PHOS3 #### [address] [place], [place] Hemoglobin (Bld) [Mass/Vol] 10.7 g/dL Low 11.7-16.0 [facility] Comment on above: Performed By: #### M G3, HEMDF, BMP3M, PHOS3 #### [address] [address] [place], [place] Lymphocytes (Bld) [#/Vol] 1.0 10*3/uL Normal 1.0-4.3 [facility] Comment on above: Performed By: #### M G3, HEMDF, BMP3M, PHOS3 #### [address] [place], [place] Lymphocytes/100 WBC (Bld) 18.4 % Low 20.0-40.0 [facility] Comment on above: Performed By: #### M G3, HEMDF, BMP3M, PHOS3 #### [address] [address] [place], [place] MCH (RBC) [Entitic mass] 27.3 pg Normal 26.0-34.0 [facility] Comment on above: Performed By: #### M G3, HEMDF, BMP3M, PHOS3 #### [address] [place] MCHC 32.4 % Normal 32.0-36.0 [facility] Comment on above: Performed By: #### M G3, HEMDF, BMP3M, PHOS3 #### [address] [address] [place], [place] MCV (RBC) [Entitic vol] 84.2 fL Normal 79.0-98.0 [facility] Comment on above: Performed By: #### M G3, HEMDF, BMP3M, PHOS3 #### [facility] [address], [place] Monocytes (Bld) [#/Vol] 0.4 10*3/uL Normal 0.0-0.8 [facility] Comment on above: Performed By: #### M G3, HEMDF, BMP3M, PHOS3 #### [facility] [address], [place] Monocytes/100 WBC (Bld) 8.3 % Normal 2.0-10.0 [facility] Comment on above: Performed By: #### M G3, HEMDF, BMP3M, PHOS3 #### [address] [place], [place] Platelet mean volume (Bld) [Entitic vol] 9.7 fL Normal 7.4-10.4 [facility] Comment on above: Performed By: #### M G3, HEMDF, BMP3M, PHOS3 #### [address] [place], [place] Platelets (Bld) [#/Vol] 173 10*3/uL Normal 140-440 [facility] Comment on above: Performed By: #### M G3, HEMDF, BMP3M, PHOS3 #### [address] [place], [place] RBC (Bld) [#/Vol] 3.92 10*6/uL Normal 3.80-5.20 [facility] Comment on above: Performed By: #### M G3, HEMDF, BMP3M, PHOS3 #### [address] [place], [place] WBC (Bld) [#/Vol] 5.3 10*3/uL Normal 3.6-10.7 [facility] Comment on above: Performed By: #### M G3, HEMDF, BMP3M, PHOS3 #### [address] [place] [address] Abs Baso Cnt 0.0 10*3/uL Normal 0.0-0.2 [facility] Comment on above: Performed By: #### M G3, HEMDF, BMP3M, PHOS3 #### [address] [place], [place] Abs Neutrophile Cnt 3.6 10*3/uL Normal 1.8-7.0 [facility] Comment on above: Performed By: #### M G3, HEMDF, BMP3M, PHOS3 #### [address] [place], [place] Basophils/100 WBC (Bld) 0.4 % Normal 0.0-2.0 [facility] Comment on above: Performed By: #### M G3, HEMDF, BMP3M, PHOS3 #### [address] [place], [place] Eosinophils (Bld) [#/Vol] 0.3 10*3/uL Normal 0.0-0.5 [facility] Comment on above: Performed By: #### M G3, HEMDF, BMP3M, PHOS3 #### [address] [address] [place], [place] Eosinophils/100 WBC (Bld) 5.3 % Normal 1.0-6.0 [facility] Comment on above: Performed By: #### M G3, HEMDF, BMP3M, PHOS3 #### [address] [address] [place], [place] Erythrocyte distribution width (RBC) [Ratio] 19.0 % High 11.5-14.5 [facility] Comment on above: Performed By: #### M G3, HEMDF, BMP3M, PHOS3 #### [address] [place], [place] Granulocytes/100 WBC (Bld) 69.7 % Normal 40.0-80.0 [facility] Comment on above: Performed By: #### M G3, HEMDF, BMP3M, PHOS3 #### [address] [place], [place] Hematocrit (Bld) [Volume fraction] 30.7 % Low 35.0-47.0 [facility] Comment on above: Performed By: #### M G3, HEMDF, BMP3M, PHOS3 #### [facility] [address], [place] Hemoglobin (Bld) [Mass/Vol] 10.0 g/dL Low 11.7-16.0 [facility] Comment on above: Performed By: #### M G3, HEMDF, BMP3M, PHOS3 #### [address] [place], [place] Lymphocytes (Bld) [#/Vol] 0.9 10*3/uL Low 1.0-4.3 [facility] Comment on above: Performed By: #### M G3, HEMDF, BMP3M, PHOS3 #### [address] [place], [place] Lymphocytes/100 WBC (Bld) 17.1 % Low 20.0-40.0 [facility] Comment on above: Performed By: #### M G3, HEMDF, BMP3M, PHOS3 #### [address] [place], [place] MCH (RBC) [Entitic mass] 27.2 pg Normal 26.0-34.0 [facility] Comment on above: Performed By: #### M G3, HEMDF, BMP3M, PHOS3 #### [address] [place] MCHC 32.7 % Normal 32.0-36.0 [facility] Comment on above: Performed By: #### M G3, HEMDF, BMP3M, PHOS3 #### [address] [place], [place] MCV (RBC) [Entitic vol] 83.2 fL Normal 79.0-98.0 [facility] Comment on above: Performed By: #### M G3, HEMDF, BMP3M, PHOS3 #### [address] [place], [place] Monocytes (Bld) [#/Vol] 0.4 10*3/uL Normal 0.0-0.8 [facility] Comment on above: Performed By: #### M G3, HEMDF, BMP3M, PHOS3 #### [facility] [address], [place] Monocytes/100 WBC (Bld) 7.5 % Normal 2.0-10.0 [facility] Comment on above: Performed By: #### M G3, HEMDF, BMP3M, PHOS3 #### [address] [place], [place] Platelet mean volume (Bld) [Entitic vol] 10.3 fL Normal 7.4-10.4 [facility] Comment on above: Performed By: #### M G3, HEMDF, BMP3M, PHOS3 #### [address] [place], [place] Platelets (Bld) [#/Vol] 183 10*3/uL Normal 140-440 [facility] Comment on above: Performed By: #### M G3, HEMDF, BMP3M, PHOS3 #### [address] [place], [place] RBC (Bld) [#/Vol] 3.69 10*6/uL Low 3.80-5.20 [facility] Comment on above: Performed By: #### M G3, HEMDF, BMP3M, PHOS3 #### [address] [place], [place] WBC (Bld) [#/Vol] 5.1 10*3/uL Normal 3.6-10.7 [facility] Comment on above: Performed By: #### M G3, HEMDF, BMP3M, PHOS3 #### [address] [place], [place] Hepatic Functionon 1 ALP [Catalytic activity/Vol] 141 U/L High 38-126 [facility] Comment on above: Performed By: #### M G3, HEMDF, BMP3M, PHOS3 #### [address] [place], [place] ALT [Catalytic activity/Vol] 34 U/L Normal 0-34 [facility] Comment on above: Result Comment: The ALT test is performed by an updated assay method. Please note that the reference intervals have been changed and are now sex specific. Performed By: #### M G3, HEMDF, BMP3M, PHOS3 #### [address] [place], [place] AST [Catalytic activity/Vol] 67 U/L High 15-46 [facility] Comment on above: Performed By: #### M G3, HEMDF, BMP3M, PHOS3 #### [address] [place], [place] Bilirubin [Mass/Vol] 0.2 mg/dL Normal 0.2-1.3 [facility] Comment on above: Performed By: #### M G3, HEMDF, BMP3M, PHOS3 #### [address] [place], [place] Bilirubin.indirect [Mass/Vol] 0.0 mg/dL Normal 0.0-0.3 [facility] Comment on above: Performed By: #### M G3, HEMDF, BMP3M, PHOS3 #### [address] [place], [place] Protein [Mass/Vol] 5.6 g/dL Low 6.3-8.2 [facility] Comment on above: Performed By: #### M G3, HEMDF, BMP3M, PHOS3 #### [address] [place], [place] Albumin [Mass/Vol] 3.3 g/dL Low 3.5-5.0 [facility] Comment on above: Performed By: #### M G3, HEMDF, BMP3M, PHOS3 #### [address] [place], [place] Magnesiumon 11-04-2020 Magnesium [Mass/Vol] 2.0 mg/dL Normal 1.6-2.3 [facility] Comment on above: Performed By: #### M G3, HEMDF, BMP3M, PHOS3 #### [address] [place], [place] Magnesium [Mass/Vol] 1.8 mg/dL Normal 1.6-2.3 [facility] Comment on above: Performed By: #### M G3, HEMDF, BMP3M, PHOS3 #### [facility] [employer] [address] [address] MagnesiumOrdered By: Munira Henry on 11-04-2020 Magnesium [Mass/Vol] 2.0 mg/dL 1.6 - 2 .3 mg/dL [facility] Work Phone: No Panel InformationOrdered By: Peggy Henry on 11-04-2020 Test Performed by [facility], [address] [place] [address] [facility] Work Phone: [facility] Work Phone: Phosphoruson 11-04-2020 Phosphate [Mass/Vol] 3.1 mg/dL Normal 2.5-4.5 [facility] Comment on above: Performed By: #### M G3, HEMDF, BMP3M, PHOS3 #### [facility] [employer] [address] Phosphate [Mass/Vol] 3.1 mg/dL Normal 2.5-4.5 [facility] Comment on above: Performed By: #### M G3, HEMDF, BMP3M, PHOS3 #### [address] PhosphorusOrdered By: Elias Henry on 11-04-2020 Phosphate [Mass/Vol] 3.1 mg/dL 2.5 - 4 .5 mg/dL [facility] Work Phone: Protime AND APTTon aPTT Coag (Bld) [Time] 26.5 s Normal 20.0-30.5 [facility] Comment on above: Result Comment: NOTE : The therapeutic time for Heparin anticoagulation, based on Xa activity inhibition, is an APTT of 46-80 seconds. Performed By: #### M G3, HEMDF, BMP3M, PHOS3 #### [facility] [employer] [address] INR 1.0 Normal 0.9-1.1 [facility] Comment on above: Result Comment: Geovanny mmended Anticoagulant Therapy: SEE BELOW ----- INR of 2.0 - 3.0 : - Prophylaxis of Venous Thrombosis (high-risk surgery) - Treatment of Venous Thrombosis - Treatment of Pulmonary Embolism (Includes tissue heart valves, Acute Myocardial Infarction to prevent systemic embolism, Valvular Heart Disease, and Atrial Fibrillation) ----- INR of 2.5 - 3.5 : - Mechanical Prosthetic Valves (high risk) - If oral anticoagulant therapy is used to prevent Myocardial Infarction Performed By: #### M G3, HEMDF, BMP3M, PHOS3 #### [address] [address] PT Coag (PPP) [Time] 10.9 s Normal 9.0-12.0 [facility] [employer] [facility] Comment on above: Result Comment: . Performed By: #### M G3, HEMDF, BMP3M, PHOS3 #### [address] [address] TSH without ReflexOrdered By : Peggy Henry on 11-04-2020 Interpretation and review of laboratory results Abnormal [facility] Work Phone: [phone] TSH Qn 0.271 u[IU]/mL Low 0.465 - 4.680 u[IU]/mL [facility] Work Phone: [phone] Test Performed by [id number] [place] [address] Work Phone: [phone] [facility] Work Phone: [phone] Thyroid Stim. Hormoneon 07-0 Thyroid Stim. Hormone 0.271 u[IU]/mL Low 0.465-4.68 0 [facility] [employer] [facility] Comment on above: Performed By: #### M G3, HEMDF, BMP3M, PHOS3 #### [facility] [employer] [address] [address] TroponinOrdered By: Peggy Henry on 11-04-2020 Interpretation and review of laboratory results Abnormal [facility] Work Phone: [phone] Troponin I.cardiac [Mass/Vol] 0.248 ng/mL High 0.000 - 0.034 ng/mL [facility] Work Phone: [phone] Comment on above: . Test Performed by [facility], [address] [place] [address] [facility] Work Phone: [phone] [facility] Work Phone: [phone] TroponinOrdered By: Chadd snyder on 11-04-2020 Interpretation and review of laboratory results Abnormal [facility] Work Phone: [phone] Troponin I.cardiac [Mass/Vol] 0.413 ng/mL High 0.000 - 0.034 ng/mL [facility] Work Phone: [phone] Comment on above: . Test Performed by [facility], [address] [place] [address] [facility] Work Phone: [phone] [facility] Work Phone: [phone] Troponin Ion 11-04-2020 Troponin I.cardiac [Mass/Vol] 0.248 ng/mL High 0.000-0.034 [facility] Comment on above: Result Comment: . Performed By: #### M G3, HEMDF, BMP3M, PHOS3 #### [facility] [employer] [address] [address] Troponin I.cardiac [Mass/Vol] 0.413 ng/mL High 0.000-0.034 [facility] Comment on above: Result Comment: . Performed By: #### M G3, HEMDF, BMP3M, PHOS3 #### [facility] [employer] [address] [address] Troponin I.cardiac [Mass/Vol] 0.268 ng/mL High 0.000-0.034 [facility] Comment on above: Result Comment: . Performed By: #### M G3, HEMDF, BMP3M, PHOS3 #### [facility] [employer] [address] [address] VL Vein Map for Preop Bypass [place] 11-04-2020 VL Vein Map for Preop Bypass Lower Ext Patient Name: GENNY VARELA Ultrasound ACCESSION EXAM DATE/TIME PROCEDURE ORDERING PROVIDER [id number] 11/04/2020 17:23 EDT VL Vein Map for Preop [id number] -HENRY, Bypass Lower Ext PEGGY CPT code 79385 Reason For Exam (VL Vein Map for Preop Bypass Lower Ext) PREOP CABG Report [facility] Bilateral LE Vein Mapping For Bypass Report Patient Genny Varela : 1950 Study 11/04/2020 Name: Karen (70yrs) Date: Age: 70 Account: [id number] Gender: F Loc: BP: Ordering Physician: Peggy Henry Drafter Commercial: Aspen Velasquez RDMS, RVT Interpreting Physician: Danny Muñoz MD Location: [facility] Indications: Preop CABG. Conclusions 1. There is no evidence of superficial vein thrombosis noted in the right great saphenous vein and left great saphenous vein. 2. Vein sizes as noted below. History: Risk factors: Age over 65 years. Study data: Bilateral lower extremity vein mapping. Grayscale 2D imaging. Location: Vascular laboratory. Procedure: Images were obtained using a PolyActiva E9 vascular ultrasound machine. Vein mapping: + +--------- ---+--------+ Ultrasound Report +Location +Diameter AP*+Comments+ + +--------- ---+--------+ +R saph-femoral junction - prox. (thigh)+5.46 mm +--------+ + +--------- ---+--------+ +R GSV - prox. (thigh) +2.65 mm +--------+ + +--------- ---+--------+ +R GSV - mid (thigh) +2.33 mm +Branch. + + +--------- ---+--------+ +R GSV - distal (thigh) +2.18 mm +--------+ + +--------- ---+--------+ +R GSV - distal (knee) +2.65 mm +--------+ + +--------- ---+--------+ +R GSV - prox. (calf) +2.02 mm +--------+ + +--------- ---+--------+ +R GSV - mid (calf) +2.08 mm +--------+ + +--------- ---+--------+ +R GSV - distal (calf) +2.13 mm +--------+ + +--------- ---+--------+ +L saph-femoral junction - prox. (thigh)+5.65 mm +--------+ + +--------- ---+--------+ +L GSV - prox. (thigh) +3.74 mm +Branch. + + +--------- ---+--------+ +L GSV - mid (thigh) +2.70 mm +--------+ + +--------- ---+--------+ +L GSV - distal (thigh) +2.70 mm +Branch. + + +--------- ---+--------+ +L GSV - distal (knee) +2.86 mm +--------+ + +--------- ---+--------+ +L GSV - prox. (calf) +1.24 mm +Branch. + + +--------- ---+--------+ +L GSV - mid (calf) +1.66 mm +--------+ + +--------- ---+--------+ +L GSV - distal (calf) +1.87 mm +Branch. + + +--------- ---+--------+ *Length measurements, e.g. diameters, are expressed in mm Prepared and electronically signed by Danny Muñoz MD 11/05/2020 10:10 Final Dictated: 11/05/2020 10:10 am Dictating Physician: DANNY MUÑOZ Signed Date and Time: 11/05/2020 10:10 am Signed by: DANNY MUÑOZ Cardiovascular ACCESSION EXAM DATE/TIME PROCEDURE [id number] 11/04/2020 17:23 EDT VL Vein Map for Preop Bypass Lower Ext CPT code 08605 Reason For Exam (VL Vein Map for Preop Bypass Lower Ext) PREOP CABG Cardiovascular Report [facility] Bilateral LE Vein Mapping For Bypass Report Patient Genny Varela : 1950 Study 11/04/2020 Name: Karen (70yrs) Date: Age: 70 Account: [id number] Gender: F Loc: BP: Ordering Physician: Peggy Henry Drafter Commercial: Aspen Velasquez RDMS, T Interpreting Physician: Danny Muñoz MD Location: [facility] Indications: Preop CABG. (more content not included)... Normal [facility] XR CHEST (2 VW)Ordered By: Goran Mujica on 11-04-2020 [id number]iology ACCESSION EXAM DATE/TIME PROCEDURE ORDERING PROVIDER [id number] 11/03/2020 23:57 EDT CR Chest PA & LAT ZULMA MUJICA CPT code 07795 Reason For Exam (CR Chest PA & LAT) Pre-op CABG Report Indication: Pre-CABG. Comparison: None. Technique: A single frontal view of chest was obtained. Findings: Trachea is midline. The lungs are clear. No pleural effusion or pneumothorax. The cardiomediastinal silhouette is normal. Pulmonary vasculature is normal. Atherosclerosis is evident. Impression: No acute findings. Report Dictated on --- Final --- Dictated: 11/04/2020 8:46 am Dictating Physician: MD GOMEZ TOM A Signed Date and Time: 11/04/2020 8:47 am Signed by: MD GOMEZ TOM A Transcribed Date and Time: 11/04/2020 8:46 [facility] Work Phone: [facility], [facility] Incoming Radiology Results From [facility] - 11/04/2020 8:48 AM EDT Patient Name: GENNY VARELA Diagnostic Radiology ACCESSION EXAM DATE/TIME PROCEDURE ORDERING PROVIDER [id number] 11/03/2020 23:57 EDT CR Chest PA & LAT ZULMA MUJICA CPT code 43642 Reason For Exam (CR Chest PA & LAT) Pre-op CABG Report Indication: Pre-CABG. Comparison: None. Technique: A single frontal view of chest was obtained. Findings: Trachea is midline. The lungs are clear. No pleural effusion or pneumothorax. The cardiomediastinal silhouette is normal. Pulmonary vasculature is normal. Atherosclerosis is evident. Impression: No acute findings. Report Dictated on --- Final --- Dictated: 11/04/2020 8:46 am Dictating Physician: MD GOMEZ TOM A Signed Date and Time: 11/04/2020 8:47 am Signed by: MD GOMEZ TOM A Transcribed Date and Time: 11/04/2020 8:46 [facility] Work Phone: [phone] [facility] Work Phone: Basic Metabolic Panel w/ Ref [place] to MGOrdered By: Peggy Henry on 11-03-2020 Anion gap [Moles/Vol] 6 mmol/L 3 - 13 mmol/L [facility] Work Phone: Calcium [Mass/Vol] 8.6 mg/dL 8.4 - 10. 4 mg/dL [facility] Work Phone: Chloride [Moles/Vol] 111 mmol/L High 98 - 10 7 mmol/L [facility] Work Phone: [phone] CO2 [Moles/Vol] 20 mmol/L Low 22 - 30 mmol/L [facility] Work Phone: Creatinine [Mass/Vol] 0.57 mg/dL 0.52 - 1.25 mg/dL [facility] Work Phone: [phone] EGFR IF NonAfrican Czech >90.0 >60 mL/min [facility] Work Phone: [phone] Comment on above: KDIGO guidelines pro vide the following GFR categories: Stage GFR(ml/min/1.73 m2) Terms G1 >=90 Normal or high G2 60-89 Mildly decreased* G3a 45-59 Mildly to moderately decreased G3b 30-44 Moderately to severely decreased G4 15-29 Severely decreased G5 <15 Kidney failure *Relative to young adult level. In the absence of evidence of kidney damage, neither GFR category G1 nor G2 fulfill the criteria for CKD. The CKD-EPI equation is validated in individuals 18 years of age and older. Currently the best equation for estimating glomerular filtration rate (GFR) from serum creatinine in children is the Bedside Morales equation. It is less accurate in patients with extremes of muscle mass, restriction of dietary protein, ingestion of creatine, extra-renal metabolism of creatinine, or treatment with medications that affect renal tubular creatinine secretion. GFR/1.73 sq M.predicted among blacks MDRD (S/P/Bld) [Vol rate/Area] mL/min/{1.73_m2} >60 mL/min [facility] Work Phone: [phone] Glucose [Mass/Vol] 135 mg/dL High 70 - 100 mg/dL [facility] Work Phone: [phone] Potassium [Moles/Vol] 4.0 mmol/L 3.5 - 5.1 mmol/L [facility] Work Phone: [phone] Sodium [Moles/Vol] 137 mmol/L 135 - 145 mmol/L [facility] Work Phone: [phone] Urea nitrogen (BldV) [Mass/Vol] 12 mg/dL 7 - 20 mg/dL [facility] Work Phone: [phone] CBC Auto DifferentialOrdered By: Peggy Henry on 11-03-2020 Absolute Baso # 0.0 10*3/uL 0.0 - 0.2 10*3/uL [facility] Work Phone: [phone] Absolute Neut # 3.6 10*3/uL 1.8 - 7.0 10*3/uL [facility] Work Phone: [phone] Basophils/100 WBC (Bld) 0.4 % 0.0 - 2.0 % [facility] Work Phone: 1 Eosinophils (Bld) [#/Vol] 0.3 10*3/uL 0.0 - 0.5 10*3/uL [facility] Work Phone: Eosinophils/100 WBC (Bld) 5.3 % 1.0 - 6.0 % [facility] Work Phone: Granulocytes/100 WBC (Bld) 69.7 % 40.0 - 80.0 % [facility] Work Phone: 1 Hematocrit (Bld) [Volume fraction] 30.7 % Low 35.0 - 47.0 % [facility] Work Phone: Hemoglobin.gastrointes tinal spec 1 Ql (Stl) 10.0 g/dL Low 11.7 - 16.0 g/dL [facility] Work Phone: Interpretation and review of laboratory results Abnormal [facility] Work Phone: 1 Lymphocytes (Bld) [#/Vol] 0.9 10*3/uL Low 1.0 - 4.3 10*3/uL [facility] Work Phone: Lymphocytes/100 WBC (Bld) 17.1 % Low 20.0 - 40.0 % [facility] Work Phone: MCH (RBC) [Entitic mass] 27.2 pg 26.0 - 34.0 pg [facility] Work Phone: MCHC (RBC) [Mass/Vol] 32.7 % 32.0 - 36.0 % [facility] Work Phone: MCV (RBC) [Entitic vol] 83.2 fL 79.0 - 98.0 fL [facility] Work Phone: Monocytes (Bld) [#/Vol] 0.4 10*3/uL 0.0 - 0.8 10*3/uL [facility] Work Phone: Monocytes/100 WBC (Bld) 7.5 % 2.0 - 10.0 % [facility] Work Phone: Platelet distribution width (Bld) [Ratio] 19.0 % High 11.5 - 14.5 % [facility] Work Phone: 1 Platelet mean volume (Bld) [Entitic vol] 10.3 fL 7.4 - 10.4 fL [facility] Work Phone: Platelets (Bld) [#/Vol] 183 10*3/uL 140 - 440 10*3/uL [facility] Work Phone: RBC (Bld) [#/Vol] 3.69 10*6/uL Low 3.80 - 5.2 0 10*6/uL [facility] Work Phone: WBC (Bld) [#/Vol] 5.1 10*3/uL 3.6 - 10.7 10*3/uL [facility] Work Phone: Test Performed by [facility], [address] [place] [id number] [facility] Work Phone: [facility] Work Phone: Hepatic Function PanelOrdere d By: Chadd Hudson on 11-03-2020 Albumin [Mass/Vol] 3.3 g/dL Low 3.5 - 5.0 g/dL [facility] Work Phone: ALP (Bld) [Catalytic activity/Vol] 141 U/L High 38 - 126 U/L [facility] Work Phone: ALT [Catalytic activity/Vol] 34 U/L 0 - 34 U/L [facility] Work Phone: Comment on above: The ALT test is perf ormed by an updated assay method. Please note that the reference intervals have been changed and are now sex specific. AST [Catalytic activity/Vol] 67 U/L High 15 - 46 U/L [facility] Work Phone: Bilirubin [Mass/Vol] 0.2 mg/dL 0.2 - 1 .3 mg/dL [facility] Work Phone: Bilirubin.indirect [Mass/Vol] 0.0 mg/dL 0.0 - 0.3 mg/dL [facility] Work Phone: Free PSA/Total PSA [Mass fraction] 5.6 g/dL Low 6.3 - 8.2 g/dL [facility] Work Phone: 1 MagnesiumOrdered By: Munira Henry on 11-03-2020 Magnesium [Mass/Vol] 1.8 mg/dL 1.6 - 2 .3 mg/dL [facility] Work Phone: 1 No Panel InformationOrdered By: Chadd Hudson on 11-03-2020 Interpretation and review of laboratory results Abnormal [facility] Work Phone: 1 Test Performed by [employer], [facility] [place] [place] [address] [facility] Work Phone: [facility] Work Phone: 1 PROTIME/INR & PTTOrdered By: Chadd Hudson on 11-03-2020 aPTT Coag (Bld) [Time] 26.5 s 20.0 - 30.5 s [facility] Work Phone: [phone] Comment on above: NOTE: The therapeuti c time for Heparin anticoagulation, based on Xa activity inhibition, is an APTT of 46-80 seconds. INR Coag (Bld) [Relative time] 1.0 {INR} [facility] Work Phone: 1 Comment on above: Recommended Anticoag ulant Therapy: SEE BELOW ----- INR of 2.0 - 3.0 : - Prophylaxis of Venous Thrombosis (high-risk surgery) - Treatment of Venous Thrombosis - Treatment of Pulmonary Embolism (Includes tissue heart valves, Acute Myocardial Infarction to prevent systemic embolism, Valvular Heart Disease, and Atrial Fibrillation) ----- INR of 2.5 - 3.5 : - Mechanical Prosthetic Valves (high risk) - If oral anticoagulant therapy is used to prevent Myocardial Infarction PT Coag (PPP) [Time] 10.9 s 9.0 - 1 2.0 s [facility] Work Phone: [phone] Comment on above: . Test Performed by [facility], [facility] [place] [address] [facility] Work Phone: [phone] [facility] Work Phone: 1 PhosphorusOrdered By: Elias Henry on 11-03-2020 Phosphate [Mass/Vol] 3.1 mg/dL 2.5 - 4 .5 mg/dL [facility] Work Phone: TroponinOrdered By: Peggy Henry on 11-03-2020 Interpretation and review of laboratory results Abnormal [facility] Work Phone: Troponin I.cardiac [Mass/Vol] 0.268 ng/mL High 0.000 - 0.034 ng/mL [facility] Work Phone: Comment on above: . Test Performed by [facility], [address] [place] [id number] [facility] Work Phone: [facility] Work Phone: Diana 10-27-2020 CNPN Telephone (HEMAWS) ----- GENNY VARELA ([id number]) 1950 F Date Time Provider Department 10/27/20 BROOKLYN ALLEN During your visit today, we recorded the following information about you: Nisha Roldan [facility] 10/27/2020 2:30 PM Signed New patient referral received and will be given to Dr. Allen for review. DX: Anemia Referred by: Dr. Jimmy Roldan Pss 11/04/2020 1:41 PM Signed Patient states Dr. Castaneda has retired and her information was sent to [facility]. Records will be disposed. Allergies As of Date: 10/27/2020 (Not on File) Date Reviewed: Never Reviewed Reason for Visit: New Patient [172] Problem List As Of Date: 10/27/2020 (None) Encounter Status:Closed by NISHA PONCE on 11/04/20 Normal [facility] - Chemistry and C hemistry - challengeon 10-18-2020 Bilirubin Ql (U) Negative Normal [facility] Ketones Ql (U) Negative Normal [facility] [employer] [facility] [employer]. pH (U) 7.0 [pH] Normal [employer]. Specific gravity (U) [Rel density] 1.020 Normal [employer]. Urobilinogen Qn (U) 0.2 mg/dL Normal [facility].; [employer]. Laboratory - Hematology and Cell countson 10-18-2020 Hemoglobin Ql (U) Negative Normal [employer].; [employer]. Laboratory - Specimen inform ationon 10-18-2020 Appearance (U) clear Normal [employer].; [employer]. Color (U) yellow Normal [employer]. Laboratory - Urinalysison Glucose Test strip (U) [Mass/Vol] Negative Normal [employer].; [employer]. Leukocyte esterase Test strip Ql (U) Negative Normal [employer].; [employer]. Protein Ql (U) Negative Normal [employer].; [employer]. Laboratory - UrinalysisOrder ed By: Pascale Brar on 10-18-2020 Nitrite Ql (U) Negative Normal [employer].; [employer]. No Panel Informationon 10-18 125 mg/dL Abnormal 65 - 99 mg/dL [employer].; [employer]. 22 mg/dL Normal 7 - 25 mg/dL [employer]. 0.89 mg/dL Normal 0.60 - 0.93 mg/dL [employer]. 65 Normal [employer].; [employer]. 75 Normal [employer].; [employer]. NOT APPLICABLE Normal 6 - 22 [employer]. 137 mmol/L Normal 135 - 146 mmol/L [employer].; [facility] 3.9 mmol/L Normal 3.5 - 5.3 mmol/L [facility] 101 mmol/L Normal 98 - 110 mmol/L [facility] 27 mmol/L Normal 20 - 32 mmol/L [facility] 9.3 mg/dL Normal 8.6 - 10.4 mg/dL [facility] [employer] 5.8 Normal 3.8 - 10.8 [facility] [employer] 3.75 {Million/uL} Abnormal 3.80 - 5.1 0 {Million/uL } [facility] [employer] [employer] 10.1 g/dL Abnormal 11.7 - 15.5 g/dL [facility] [employer] 31.7 % Abnormal 35.0 - 45.0 % [facility] [employer] 84.5 fL Normal 80.0 - 100.0 fL [employer] 26.9 pg Abnormal 27.0 - 33.0 pg [facility] [employer] 31.9 g/dL Abnormal 32.0 - 36.0 g/dL [facility] [employer] 17.6 % Abnormal 11.0 - 15.0 % [employer] 264 Normal 140 - 400 [employer] 13.1 fL Abnormal 7.5 - 12.5 fL [facility] [employer] 4292 {cells/uL} Normal 1500 - 7800 {cells/uL} [employer] 795 {cells/uL} Abnormal 850 - 3900 {cells/uL} [employer] 452 {cells/uL} Normal 200 - 950 {cells/uL} [employer] 232 {cells/uL} Normal 15 - 500 {cells/uL} [employer].; [employer]. 29 {cells/uL} Normal 0 - 200 {cells/uL} [employer].; [employer]. 74 % Normal [employer].; [employer]. 13.7 % Normal [employer].; [employer]. 7.8 % Normal [employer].; [employer]. 4.0 % Normal [employer].; [employer]. 0.5 % Normal [employer].; [employer]. 1.63 {mIU/L} Normal 0.40 - 4.50 {mIU/L} [employer].; [employer] Laboratory - Chemistry and C hemistry - challengeon 04-11-2020 Bilirubin Ql (U) Negative Normal [employer].; [employer]. Ketones Ql (U) Negative Normal [employer].; [employer]. pH (U) 7.0 [pH] Normal [employer].; [employer]. Specific gravity (U) [Rel density] >1.030 Normal [employer].; [employer]. Urobilinogen Qn (U) 0.2 mg/dL Normal [facility] [employer]. Laboratory - Hematology and Cell countson 04-11-2020 Hemoglobin Ql (U) Negative Normal [employer].; [employer]. Laboratory - Specimen inform ationon 04-11-2020 Appearance (U) clear Normal [employer].; [employer]. Color (U) dark Yellow Normal [employer].; [employer]. Laboratory - Urinalysison Glucose Test strip (U) [Mass/Vol] Negative Normal [employer].; [employer]. Leukocyte esterase Test strip Ql (U) Negative Normal [employer].; [employer]. Nitrite Ql (U) Negative Normal [employer].; [employer]. Protein Ql (U) Negative Normal [employer].; [employer]. Laboratory - Chemistry and C hemistry - challengeon 03-24-2019 Bilirubin Ql (U) moderate Abnormal [employer].; [employer]. Ketones Ql (U) trace Normal [employer].; [employer]. pH (U) 6.0 [pH] Normal [employer].; [employer]. Specific gravity (U) [Rel density] 1.030 Abnormal [employer].; [employer]. Urobilinogen Qn (U) 0.2 mg/dL Normal [facility] [employer]; [employer]. Laboratory - Hematology and Cell countson 03-24-2019 Hemoglobin Ql (U) Negative Normal [employer]; [employer]. Laboratory - Microbiology an d Antimicrobial susceptibilityon 03-24-2019 Bacteria identified Cx Nom (U) SEE NOTE Normal [employer]; [employer]. Laboratory - Specimen inform ationon 03-24-2019 Appearance (U) cloudy Abnormal [employer]; [employer]. Color (U) leia Normal [employer]; [employer]. Specimen source Nom (Unsp spec) URINE Normal [employer]; [employer]. Laboratory - Urinalysison Glucose Test strip (U) [Mass/Vol] Negative Normal [employer].; [employer]. Leukocyte esterase Test strip Ql (U) Negative Normal [employer].; [employer]. Nitrite Ql (U) Negative Normal [employer].; [employer]. Protein Ql (U) 100 mg/dL Abnormal [employer].; [employer]. Laboratory - Chemistry and C hemistry - challengeon 01-12-2019 Bilirubin Ql (U) small Abnormal [employer].; [employer]. Ketones Ql (U) Negative Normal [employer].; [employer]. pH (U) 7.0 [pH] Normal [employer].; [employer]. Specific gravity (U) [Rel density] >1.030 Normal [employer].; [employer]. Urobilinogen Qn (U) 1.0 mg/dL Normal [facility] [employer].; [employer]. Laboratory - Hematology and Cell countson 01-12-2019 Hemoglobin Ql (U) Negative Normal [employer].; [employer]. Laboratory - Specimen inform ationon 01-12-2019 Appearance (U) clear Normal [employer].; [employer]. Color (U) dark Yellow Normal [employer].; [employer]. Laboratory - Urinalysison Glucose Test strip (U) [Mass/Vol] Negative Normal [employer].; [employer]. Leukocyte esterase Test strip Ql (U) Negative Normal [employer].; [employer]. Nitrite Ql (U) Negative Normal [employer].; [employer]. Protein Ql (U) Negative Normal [employer].; [employer]. Laboratory - Chemistry and C hemistry - challengeon 11-02-2018 Creatinine [Mass/Vol] 0.59 mg/dL Abnormal 0.60 - 0.93 mg/dL [employer] [place]. GFR/1.73 sq M.predicted among blacks MDRD (S/P/Bld) [Vol rate/Area] 108 {ML/MIN/1.73M2} Normal [employer].; [facility] [place] GFR/1.73 sq M.predicted MDRD (S/P/Bld) [Vol rate/Area] 93 {ML/MIN/1.73M2} Normal [employer].; [facility] [place] Urea nitrogen [Mass/Vol] 11 mg/dL Normal 7 - 25 mg/dL [employer].; [employer]. Laboratory - Chemistry and C hemistry - challengeon 10-08-2018 Bilirubin Ql (U) Negative Normal [facility].; [employer]. Ketones Ql (U) Negative Normal [employer]; [employer]. pH (U) 7.0 [pH] Normal [facility] [employer].; [employer]. Specific gravity (U) [Rel density] 1.025 Normal [facility] [employer]; [employer] Urobilinogen Qn (U) 0.2 mg/dL Normal [facility]; [employer]. Laboratory - Hematology and Cell countson 10-08-2018 Hemoglobin Ql (U) Negative Normal [facility] [employer]; [employer]. Laboratory - Specimen inform ationon 10-08-2018 Appearance (U) clear Normal [facility] [employer]; [employer]. Color (U) yellow Normal [facility] [employer]; [employer]. Laboratory - Urinalysison Glucose Test strip (U) [Mass/Vol] Negative Normal [facility] [employer]; [employer]. Leukocyte esterase Test strip Ql (U) Negative Normal [facility] [employer]; [employer]. Nitrite Ql (U) Negative Normal [employer].; [employer]. Protein Ql (U) Negative Normal [employer].; [employer]. Laboratory - Chemistry and C hemistry - challengeon 01-08-2018 ALP Iso Qn ALK PHOS ISOENZYMES [QUEST] Normal [employer]; [employer]. Laboratory - Chemistry and C hemistry - challengeon 01-02-2018 Albumin [Mass/Vol] 4.3 g/dL Normal 3.6 - 5.1 g/dL [facility] [employer]; [employer]. Albumin/Globulin [Mass ratio] 1.9 {ratio} Normal 1.0 - 2.5 [facility] [employer]; [employer]. ALP [Catalytic activity/Vol] 174 U/L Abnormal 33 - 130 U/L [employer]; [employer]. ALT [Catalytic activity/Vol] 28 U/L Normal 6 - 29 U/L [facility]. AST [Catalytic activity/Vol] 13 U/L Normal 10 - 35 U/L [facility].; [facility] Bilirubin [Mass/Vol] 0.3 mg/dL Normal 0.2 - 1 .2 mg/dL [facility].; [facility] Bilirubin.direct [Mass/Vol] 0.1 mg/dL Normal [facility]; [facility] [employer] [facility] Globulin (S) [Mass/Vol] 2.2 g/dL Normal 1.9 - 3.7 g/dL [facility]; [facility] [employer] [facility] Protein [Mass/Vol] 6.5 g/dL Normal 6.1 - 8.1 g/dL [facility].; [facility] [employer] Laboratory - Chemistry and C hemistry - challengeon 10-13-2017 Albumin [Mass/Vol] 4.2 g/dL Normal 3.6 - 5.1 g/dL [facility]; [facility] [employer] [facility]. Albumin/Globulin [Mass ratio] 2.2 {ratio} Normal 1.0 - 2.5 [facility]; [facility] [employer] [facility]. ALP [Catalytic activity/Vol] 172 U/L Abnormal 33 - 130 U/L [facility].; [facility] [employer] [facility]. ALT [Catalytic activity/Vol] 30 U/L Abnormal 6 - 29 U/L [facility].; [facility]. AST [Catalytic activity/Vol] 13 U/L Normal 10 - 35 U/L [facility].; [facility] [employer] [facility]. Bilirubin [Mass/Vol] 0.4 mg/dL Normal 0.2 - 1 .2 mg/dL [facility].; [facility] [employer] [facility] Bilirubin Ql (U) Negative Normal [facility]; [facility] [employer] [facility] Calcium [Mass/Vol] 9.2 mg/dL Normal 8.6 - 10. 4 mg/dL [facility].; [facility] [employer] [facility] Chloride [Moles/Vol] 107 mmol/L Normal 98 - 11 0 mmol/L [facility], [facility]. Cholesterol [Mass/Vol] 167 mg/dL Normal [facility]; [facility], [facility] Cholesterol in HDL [Mass/Vol] 66 mg/dL Normal [facility]; [facility], [facility] Cholesterol in LDL [Mass/Vol] 80 mg/dL Normal 0 - 100 mg/dL [facility]; [facility] Cholesterol non HDL [Mass/Vol] 101 mg/dL Normal [facility]; [facility], [facility] Cholesterol.total/Chol esterol in HDL [Mass ratio] 2.5 {ratio} Normal [facility]; [facility], [facility] CO2 [Moles/Vol] 26 mmol/L Normal 20 - 31 mmol/L [facility]; [facility], [facility] Creatinine [Mass/Vol] 0.57 mg/dL Normal 0.50 - 0.99 mg/dL [facility], [facility]. GFR/1.73 sq M.predicted among blacks MDRD (S/P/Bld) [Vol rate/Area] 110 {ML/MIN/1.73M2} Normal [facility], [facility]. GFR/1.73 sq M.predicted MDRD (S/P/Bld) [Vol rate/Area] 95 {ML/MIN/1.73M2} Normal [facility].; [facility], [facility]. Globulin (S) [Mass/Vol] 1.9 g/dL Normal 1.9 - 3.7 g/dL [facility] [employer], [facility]. Glucose [Mass/Vol] 123 mg/dL Abnormal 65 - 99 mg/dL [facility].; [facility], [facility]. Ketones Ql (U) Negative Normal [facility], [facility] pH (U) 7.0 [pH] Normal [facility].; [facility], [facility] Potassium [Moles/Vol] 3.9 mmol/L Normal 3.5 - 5.3 mmol/L [facility].; [facility] [employer] [facility] Protein [Mass/Vol] 6.1 g/dL Normal 6.1 - 8.1 g/dL [facility].; [facility] [employer] [facility]. Sodium [Moles/Vol] 140 mmol/L Normal 135 - 146 mmol/L [facility].; [facility] [employer] [facility] Specific gravity (U) [Rel density] 1.020 Normal [facility]; [facility] [employer] [facility] Triglyceride [Mass/Vol] 118 mg/dL Normal [facility]; [facility] [employer] [facility] Urea nitrogen [Mass/Vol] 16 mg/dL Normal 7 - 25 mg/dL [facility].; [employer] [facility] Urea nitrogen/Creatinine [Mass ratio] 28.4 mg/mg Abnormal 6 - 22 [facility]; [place] [employer] Urobilinogen Qn (U) 0.2 mg/dL Normal [facility].; [employer] [facility]. Laboratory - Hematology and Cell countson 10-13-2017 Basophils (Bld) [#/Vol] 40 {Cells}/uL Normal 0 - 200 {Cells}/uL [facility].; [employer] [facility]. Basophils/100 WBC (Bld) 1 % Normal 0 - 1 % [facility].; [employer] [facility] Eosinophils (Bld) [#/Vol] 310 {Cells}/uL Normal 15 - 500 {Cells}/uL [facility].; [employer] [facility] Eosinophils/100 WBC (Bld) 6 % Abnormal 0 - 4 % [facility] [facility].; [employer] [facility] Erythrocyte distribution width (RBC) [Ratio] 16.3 % Abnormal 11.0 - 15.0 % [employer] [facility].; [employer] [facility]. Hematocrit (Bld) [Volume fraction] 36.6 % Normal 35.0 - 45.0 % [employer] [facility].; [employer] Hemoglobin (Bld) [Mass/Vol] 12.0 g/dL Normal 11.7 - 15.5 g/dL [facility].; [employer] [facility], [facility]. Hemoglobin Ql (U) Negative Normal [facility].; [facility], [facility]. Lymphocytes (Bld) [#/Vol] 1440 {Cells}/uL Normal 850 - 3900 {Cells}/uL [facility], [facility].; [employer], [facility]. Lymphocytes/100 WBC (Bld) 28 % Normal 12 - 47 % [facility], [facility].; [employer] [facility], [facility]. MCH (RBC) [Entitic mass] 28.9 pg Normal 27.0 - 33.0 PG [facility].; [employer] [facility], [facility]. MCHC (RBC) [Mass/Vol] 32.7 g/dL Normal 32.0 - 36.0 g/dL [facility].; [employer], [facility]. MCV (RBC) [Entitic vol] 88.3 fL Normal 80.0 - 100.0 fL [facility].; [employer] [facility], [facility]. Monocytes (Bld) [#/Vol] 230 {Cells}/uL Normal 200 - 950 {Cells}/uL [facility].; [employer], [facility]. Monocytes/100 WBC (Bld) 5 % Normal 4 - 12 % [facility].; [employer], [facility]. Neutrophils (Bld) [#/Vol] 3060 {Cells}/uL Normal 1500 - 7800 {Cells}/uL [employer], [facility].; [employer], [place]. Neutrophils/100 WBC (Bld) 60 % Normal 40 - 75 % [employer] [facility].; [employer], [facility]. Platelet mean volume (Bld) [Entitic vol] 11.1 fL Normal 7.5 - 12.5 fL [employer] [facility].; [employer], [facility]. Platelets (Bld) [#/Vol] 223 10*3/uL Normal 140 - 400 10*3/uL [employer] RBC (Bld) [#/Vol] 4.15 10*6/uL Normal 3.80 - 5.1 0 10*6/uL [employer] WBC (Bld) [#/Vol] 5.1 10*3/uL Normal 3.8 - 10.8 10*3/uL [employer] [facility] - Microbiology an d Antimicrobial susceptibilityon 10-13-2017 Bacteria identified Cx Nom (U) Normal [employer]. Laboratory - Specimen inform ationon 10-13-2017 Appearance (U) Clear Normal [employer].; [employer]. Color (U) Yellow Normal [employer].; [employer]. Specimen source Nom (Unsp spec) URINE-CLEAN CATCH Normal [employer].; [employer] Laboratory - Urinalysison Glucose Test strip (U) [Mass/Vol] Negative Normal [employer].; [employer]. Leukocyte esterase Test strip Ql (U) Negative Normal [employer].; [employer]. Nitrite Ql (U) Negative Normal [employer].; [employer]. Protein Ql (U) Negative Normal [employer].; [employer]. Laboratory - Chemistry and C hemistry - challengeon 09-25-2017 Bilirubin Ql (U) small Abnormal [employer]; [employer]. Ketones Ql (U) trace Normal [employer].; [employer]. pH (U) 7.0 [pH] Normal [employer].; [employer]. Specific gravity (U) [Rel density] 1.025 Normal [employer].; [employer]. Urobilinogen Qn (U) 0.2 mg/dL Normal [facility] [employer]. Laboratory - Hematology and Cell countson 09-25-2017 Hemoglobin Ql (U) Negative Normal [employer].; [employer]. Laboratory - Specimen inform ationon 09-25-2017 Appearance (U) Cloudy Abnormal [employer].; [employer]. Color (U) Dark Yellow Normal [employer].; [employer]. Laboratory - Urinalysison Glucose Test strip (U) [Mass/Vol] Negative Normal [facility].; [employer] [facility]. Leukocyte esterase Test strip Ql (U) small Abnormal [facility].; [employer] [facility], [place]. Nitrite Ql (U) Positive Abnormal [facility].; [employer], [place] Protein Ql (U) 100 mg/dL Abnormal [facility].; [employer], [place]. Laboratory - Chemistry and C hemistry - challengeon 08-30-2016 Albumin [Mass/Vol] 4.1 g/dL Normal 3.6 - 5.1 g/dL [facility].; [employer] [facility], [facility]. Albumin/Globulin [Mass ratio] 2.4 {ratio} Normal 1.0 - 2.5 [facility].; [employer] [facility]. ALP [Catalytic activity/Vol] 97 U/L Normal 33 - 130 U/L [facility].; [employer], [place]. ALT [Catalytic activity/Vol] 17 U/L Normal 6 - 29 U/L [facility].; [employer], [place]. AST [Catalytic activity/Vol] 14 U/L Normal 10 - 35 U/L [employer] [facility].; [employer], [place]. Bilirubin [Mass/Vol] 0.5 mg/dL Normal 0.2 - 1 .2 mg/dL [facility].; [employer], [facility]. Calcium [Mass/Vol] 8.9 mg/dL Normal 8.6 - 10. 4 mg/dL [facility].; [employer], [place]. Chloride [Moles/Vol] 113 mmol/L Abnormal 98 - 11 0 mmol/L [facility].; [employer], [place]. Cholesterol [Mass/Vol] 203 mg/dL Abnormal 125 - 200 mg/dL [facility].; [employer] Cholesterol in HDL [Mass/Vol] 69 mg/dL Normal [facility], [facility].; [employer], [place] Cholesterol in LDL [Mass/Vol] 121 mg/dL Normal [employer] [facility].; [facility]. Cholesterol non HDL [Mass/Vol] 134 mg/dL Normal [facility], [facility]. Cholesterol.total/Chol esterol in HDL [Mass ratio] 2.9 {ratio} Normal [facility], [facility]. CO2 [Moles/Vol] 23 mmol/L Normal 20 - 31 mmol/L [facility], [facility]. Creatinine [Mass/Vol] 0.55 mg/dL Normal 0.50 - 0.99 mg/dL [facility], [facility]. GFR/1.73 sq M.predicted among blacks MDRD (S/P/Bld) [Vol rate/Area] 112 {ML/MIN/1.73M2} Normal [facility], [facility]. GFR/1.73 sq M.predicted MDRD (S/P/Bld) [Vol rate/Area] 96 {ML/MIN/1.73M2} Normal [facility], [facility].; [facility], [facility]. Globulin (S) [Mass/Vol] 1.8 g/dL Abnormal 1.9 - 3.7 g/dL [facility], [facility].; [facility], [facility]. Glucose [Mass/Vol] 75 mg/dL Normal 65 - 99 mg/dL [facility], [facility].; [facility], [facility]. Potassium [Moles/Vol] 3.5 mmol/L Normal 3.5 - 5.3 mmol/L [facility], [facility].; [facility], [facility]. Protein [Mass/Vol] 5.9 g/dL Abnormal 6.1 - 8.1 g/dL [facility], [facility].; [facility], [facility]. Sodium [Moles/Vol] 144 mmol/L Normal 135 - 146 mmol/L [facility], [facility].; [employer] [facility], [facility]. Triglyceride [Mass/Vol] 65 mg/dL Normal [facility], [facility].; [employer] [facility], [facility]. Urea nitrogen [Mass/Vol] 18 mg/dL Normal 7 - 25 mg/dL [facility], [facility].; [facility], [facility]. Urea nitrogen/Creatinine [Mass ratio] 33.1 mg/mg Abnormal 6 - 22 [facility]; [employer] [facility] Laboratory - Hematology and Cell countson 08-30-2016 Basophils (Bld) [#/Vol] 20 {Cells}/uL Normal 0 - 200 {Cells}/uL [facility].; [employer], [place] Basophils/100 WBC (Bld) 1 % Normal 0 - 1 % [employer], [place] Eosinophils (Bld) [#/Vol] 470 {Cells}/uL Normal 15 - 500 {Cells}/uL [employer] [facility].; [place] [employer] Eosinophils/100 WBC (Bld) 12 % Abnormal 0 - 4 % [employer].; [employer], [place] Erythrocyte distribution width (RBC) [Ratio] 13.4 % Normal 11.0 - 15.0 % [employer].; [employer], [place] Hematocrit (Bld) [Volume fraction] 33.8 % Abnormal 35.0 - 45.0 % [employer].; [employer], [place] Hemoglobin (Bld) [Mass/Vol] 11.2 g/dL Abnormal 11.7 - 15.5 g/dL [employer] [facility].; [employer], [place]. Lymphocytes (Bld) [#/Vol] 1340 {Cells}/uL Normal 850 - 3900 {Cells}/uL [employer], [place] Lymphocytes/100 WBC (Bld) 34 % Normal 12 - 47 % [employer].; [employer], [place]. MCH (RBC) [Entitic mass] 30.6 pg Normal 27.0 - 33.0 PG [employer].; [employer], [place]. MCHC (RBC) [Mass/Vol] 33.1 g/dL Normal 32.0 - 36.0 g/dL [employer].; [employer], [place]. MCV (RBC) [Entitic vol] 92.3 fL Normal 80.0 - 100.0 fL [employer].; [employer], [place]. Monocytes (Bld) [#/Vol] 330 {Cells}/uL Normal 200 - 950 {Cells}/uL [employer] [place] [employer]. Monocytes/100 WBC (Bld) 8 % Normal 4 - 12 % [facility] Neutrophils (Bld) [#/Vol] 1840 {Cells}/uL Normal 1500 - 7800 {Cells}/uL [facility].; [employer]. Neutrophils/100 WBC (Bld) 46 % Normal 40 - 75 % [facility] [employer]. Platelet mean volume (Bld) [Entitic vol] 10.6 fL Normal 7.5 - 12.5 fL [facility].; [employer], [place]. Platelets (Bld) [#/Vol] 178 10*3/uL Normal 140 - 400 10*3/uL [facility] [employer], [place]. RBC (Bld) [#/Vol] 3.66 10*6/uL Abnormal 3.80 - 5.1 0 10*6/uL [facility].; [employer]. WBC (Bld) [#/Vol] 4.0 10*3/uL Normal 3.8 - 10.8 10*3/uL [employer] [facility].; [employer]. Laboratory - Chemistry and C hemistry - challengeon 01-30-2016 Albumin [Mass/Vol] 4.3 g/dL Normal 3.6 - 5.1 g/dL [facility].; [employer], [place]. Albumin/Globulin [Mass ratio] 1.8 {ratio} Normal 1.0 - 2.5 [facility].; [employer]. ALP [Catalytic activity/Vol] 152 U/L Abnormal 33 - 130 U/L [employer] [facility].; [employer], [place]. ALT [Catalytic activity/Vol] 30 U/L Abnormal 6 - 29 U/L [facility].; [employer], [place]. AST [Catalytic activity/Vol] 20 U/L Normal 10 - 35 U/L [facility].; [employer]. Bilirubin [Mass/Vol] 0.3 mg/dL Normal 0.2 - 1 .2 mg/dL [facility], [facility]. Calcium [Mass/Vol] 9.6 mg/dL Normal 8.6 - 10. 4 mg/dL [facility].; [facility], [facility]. Chloride [Moles/Vol] 107 mmol/L Normal 98 - 11 0 mmol/L [facility], [facility].; [facility], [facility]. Cholesterol [Mass/Vol] 232 mg/dL Abnormal 125 - 200 mg/dL [facility].; [facility], [facility]. Cholesterol in HDL [Mass/Vol] 55 mg/dL Normal [facility], [facility]. Cholesterol in LDL [Mass/Vol] 120 mg/dL Normal [facility].; [facility], [facility]. Cholesterol non HDL [Mass/Vol] 177 mg/dL Abnormal [facility].; [facility], [facility] Cholesterol.total/Chol esterol in HDL [Mass ratio] 4.2 {ratio} Normal [facility].; [employer] [facility]. CO2 [Moles/Vol] 21 mmol/L Normal 20 - 31 mmol/L [facility].; [employer] [facility], [facility]. Creatinine [Mass/Vol] 0.53 mg/dL Normal 0.50 - 0.99 mg/dL [facility], [facility].; [facility], [facility]. GFR/1.73 sq M.predicted among blacks MDRD (S/P/Bld) [Vol rate/Area] 114 {ML/MIN/1.73M2} Normal [facility].; [facility], [facility]. GFR/1.73 sq M.predicted MDRD (S/P/Bld) [Vol rate/Area] 98 {ML/MIN/1.73M2} Normal [facility], [facility].; [employer] [facility], [facility]. Globulin (S) [Mass/Vol] 2.3 g/dL Normal 1.9 - 3.7 g/dL [facility], [facility].; [employer] [facility] Glucose [Mass/Vol] 143 mg/dL Abnormal 65 - 99 mg/dL [facility], [facility].; [employer] [facility], [facility]. Potassium [Moles/Vol] 3.6 mmol/L Normal 3.5 - 5.3 mmol/L [facility] Protein [Mass/Vol] 6.6 g/dL Normal 6.1 - 8.1 g/dL [facility], [facility] Sodium [Moles/Vol] 142 mmol/L Normal 135 - 146 mmol/L [facility], [facility] Triglyceride [Mass/Vol] 283 mg/dL Abnormal [facility]; [facility], [facility] Urea nitrogen [Mass/Vol] 6 mg/dL Abnormal 7 - 25 mg/dL [facility]; [facility], [facility] Urea nitrogen/Creatinine [Mass ratio] 10.8 mg/mg Normal 6 - 22 [facility]; [facility], [facility] Laboratory - Chemistry and C hemistry - challengeon 01-12-2015 Albumin [Mass/Vol] 4.6 g/dL Normal 3.6 - 5.1 g/dL [facility], [facility] Albumin/Globulin [Mass ratio] 2.3 {ratio} Normal 1.0 - 2.5 [facility]. ALP [Catalytic activity/Vol] 129 U/L Normal 33 - 130 U/L [facility], [facility]. ALT [Catalytic activity/Vol] 31 U/L Abnormal 6 - 29 U/L [facility], [facility]. AST [Catalytic activity/Vol] 40 U/L Abnormal 10 - 35 U/L [facility].; [facility], [facility]. Bilirubin [Mass/Vol] 0.6 mg/dL Normal 0.2 - 1 .2 mg/dL [facility], [facility].; [facility], [facility]. Calcium [Mass/Vol] 9.4 mg/dL Normal 8.6 - 10. 4 mg/dL [facility], [facility].; [facility], [facility]. Chloride [Moles/Vol] 104 mmol/L Normal 98 - 11 0 mmol/L [facility], [facility].; [facility], [facility] Cholesterol [Mass/Vol] 228 mg/dL Abnormal 125 - 200 mg/dL [facility]. Cholesterol in HDL [Mass/Vol] 85 mg/dL Normal [facility], [facility]. Cholesterol in LDL [Mass/Vol] 134 mg/dL Abnormal [facility], [facility]. Cholesterol non HDL [Mass/Vol] 143 mg/dL Normal [facility], [facility]. Cholesterol.total/Chol esterol in HDL [Mass ratio] 2.7 {ratio} Normal [facility]. CO2 [Moles/Vol] 24 mmol/L Normal 19 - 30 mmol/L [facility], [facility]. Creatinine [Mass/Vol] 0.52 mg/dL Normal 0.50 - 0.99 mg/dL [facility], [facility].; [facility], [facility]. GFR/1.73 sq M.predicted among blacks MDRD (S/P/Bld) [Vol rate/Area] 115 {ML/MIN/1.73M2} Normal [facility], [facility]. GFR/1.73 sq M.predicted MDRD (S/P/Bld) [Vol rate/Area] 100 {ML/MIN/1.73M2} Normal [facility], [facility].; [facility]. Globulin (S) [Mass/Vol] 2.0 g/dL Normal 1.9 - 3.7 g/dL [facility].; [facility], [facility]. Glucose [Mass/Vol] 85 mg/dL Normal 65 - 99 mg/dL [facility].; [facility], [facility]. Potassium [Moles/Vol] 3.7 mmol/L Normal 3.5 - 5.3 mmol/L [facility], [facility]. Protein [Mass/Vol] 6.6 g/dL Normal 6.1 - 8.1 g/dL [facility].; [facility], [facility]. Sodium [Moles/Vol] 138 mmol/L Normal 135 - 146 mmol/L [facility].; [facility], [facility]. Triglyceride [Mass/Vol] 46 mg/dL Normal [facility].; [employer] Urea nitrogen [Mass/Vol] 16 mg/dL Normal 7 - 25 mg/dL [facility] [employer], [place]. Urea nitrogen/Creatinine [Mass ratio] 31.2 mg/mg Abnormal 6 - 22 [facility] [employer], [place]. Laboratory - Hematology and Cell countson 01-12-2015 Basophils (Bld) [#/Vol] 20 {Cells}/uL Normal 0 - 200 {Cells}/uL [facility].; [employer]. Basophils/100 WBC (Bld) 1 % Normal 0 - 1 % [employer], [place]. Eosinophils (Bld) [#/Vol] 220 {Cells}/uL Normal 15 - 500 {Cells}/uL [employer], [place]. Eosinophils/100 WBC (Bld) 5 % Abnormal 0 - 4 % [employer].; [employer]. Erythrocyte distribution width (RBC) [Ratio] 13.6 % Normal 11.0 - 15.0 % [employer].; [employer], [place]. Hematocrit (Bld) [Volume fraction] 33.7 % Abnormal 35.0 - 45.0 % [employer], [place]. Hemoglobin (Bld) [Mass/Vol] 11.2 g/dL Abnormal 11.7 - 15.5 g/dL [employer] [facility].; [employer]. Lymphocytes (Bld) [#/Vol] 1210 {Cells}/uL Normal 850 - 3900 {Cells}/uL [employer]. Lymphocytes/100 WBC (Bld) 28 % Normal 12 - 47 % [employer], [place]. MCH (RBC) [Entitic mass] 29.7 pg Normal 27.0 - 33.0 PG [employer].; [employer], [place]. MCHC (RBC) [Mass/Vol] 33.3 g/dL Normal 32.0 - 36.0 g/dL [employer], [place]. MCV (RBC) [Entitic vol] 89.2 fL Normal 80.0 - 100.0 fL [employer].; [employer], [place]. Monocytes (Bld) [#/Vol] 310 {Cells}/uL Normal 200 - 950 {Cells}/uL [employer], [place]. Monocytes/100 WBC (Bld) 7 % Normal 4 - 12 % [employer], [place]. Neutrophils (Bld) [#/Vol] 2550 {Cells}/uL Normal 1500 - 7800 {Cells}/uL [employer].; [employer], [place]. Neutrophils/100 WBC (Bld) 59 % Normal 40 - 75 % [employer].; [employer], [place]. Platelet mean volume (Bld) [Entitic vol] 10.5 fL Normal 7.5 - 11.5 fL [employer].; [employer], [place]. Platelets (Bld) [#/Vol] 210 10*3/uL Normal 140 - 400 10*3/uL [employer].; [employer], [place]. RBC (Bld) [#/Vol] 3.77 10*6/uL Abnormal 3.80 - 5.1 0 10*6/uL [employer], [place]. WBC (Bld) [#/Vol] 4.3 10*3/uL Normal 3.8 - 10.8 10*3/uL [employer], [place]. Laboratory - Chemistry and C hemistry - challengeon 01-27-2014 Albumin [Mass/Vol] 4.1 g/dL Normal 3.6 - 5.1 g/dL [employer], [place]. Albumin/Globulin [Mass ratio] 2.0 {ratio} Normal 1.0 - 2.5 [employer].; [employer], [place]. ALP [Catalytic activity/Vol] 138 U/L Abnormal 33 - 130 U/L [employer].; [employer]. ALT [Catalytic activity/Vol] 15 U/L Normal 6 - 29 U/L [facility], [facility]. AST [Catalytic activity/Vol] 16 U/L Normal 10 - 35 U/L [facility], [facility]. Bilirubin [Mass/Vol] 0.3 mg/dL Normal 0.2 - 1 .2 mg/dL [facility], [facility].; [facility], [facility]. Calcium [Mass/Vol] 8.8 mg/dL Normal 8.6 - 10. 4 mg/dL [facility], [facility]. Chloride [Moles/Vol] 109 mmol/L Normal 98 - 11 0 mmol/L [facility], [facility]. Cholesterol [Mass/Vol] 152 mg/dL Normal 125 - 200 mg/dL [facility], [facility].; [facility], [facility]. Cholesterol in HDL [Mass/Vol] 56 mg/dL Normal [facility], [facility]. Cholesterol in LDL [Mass/Vol] 77 mg/dL Normal [facility].; [facility], [facility]. Cholesterol non HDL [Mass/Vol] 96 mg/dL Normal [facility].; [facility] [facility]. Cholesterol.total/Chol esterol in HDL [Mass ratio] 2.7 {ratio} Normal [facility] [employer] [facility], [facility]. CO2 [Moles/Vol] 23 mmol/L Normal 19 - 30 mmol/L [facility], [facility].; [facility], [facility]. Creatinine [Mass/Vol] 0.55 mg/dL Normal 0.50 - 0.99 mg/dL [facility], [facility].; [facility], [facility]. GFR/1.73 sq M.predicted among blacks MDRD (S/P/Bld) [Vol rate/Area] 114 {ML/MIN/1.73M2} Normal [facility], [facility].; [facility], [facility]. GFR/1.73 sq M.predicted MDRD (S/P/Bld) [Vol rate/Area] 98 {ML/MIN/1.73M2} Normal [facility], [facility].; [employer] [facility], [facility]. Globulin (S) [Mass/Vol] 1.9 g/dL Normal 1.9 - 3.7 g/dL [facility], [facility] Glucose [Mass/Vol] 110 mg/dL Abnormal 65 - 99 mg/dL [facility]; [facility], [facility] Potassium [Moles/Vol] 4.1 mmol/L Normal 3.5 - 5.3 mmol/L [facility]; [facility], [facility] Protein [Mass/Vol] 6.0 g/dL Abnormal 6.1 - 8.1 g/dL [facility], [facility] Sodium [Moles/Vol] 144 mmol/L Normal 135 - 146 mmol/L [facility]; [facility], [facility] Triglyceride [Mass/Vol] 94 mg/dL Normal [facility]; [facility], [facility] Urea nitrogen [Mass/Vol] 11 mg/dL Normal 7 - 25 mg/dL [facility]; [facility], [facility] Urea nitrogen/Creatinine [Mass ratio] 20.0 mg/mg Normal 6 - 22 [facility]; [facility] Laboratory - Hematology and Cell countson 01-27-2014 Basophils (Bld) [#/Vol] 20 {Cells}/uL Normal 0 - 200 {Cells}/uL [facility]; [facility], [facility]. Basophils/100 WBC (Bld) 0 % Normal [facility]; [facility], [facility] Eosinophils (Bld) [#/Vol] 330 {Cells}/uL Normal 15 - 500 {Cells}/uL [facility], [facility]. Eosinophils/100 WBC (Bld) 7 % Normal [facility]; [facility], [facility] Erythrocyte distribution width (RBC) [Ratio] 13.4 % Normal 11.0 - 15.0 % [facility], [facility] Hematocrit (Bld) [Volume fraction] 36.8 % Normal 35.0 - 45.0 % [facility], [facility] Hemoglobin (Bld) [Mass/Vol] 12.3 g/dL Normal 11.7 - 15.5 g/dL [facility].; [facility], [facility]. Lymphocytes (Bld) [#/Vol] 1430 {Cells}/uL Normal 850 - 3900 {Cells}/uL [facility], [facility]. Lymphocytes/100 WBC (Bld) 30 % Normal [facility], [facility]. MCH (RBC) [Entitic mass] 30.6 pg Normal 27.0 - 33.0 PG [facility], [facility]. MCHC (RBC) [Mass/Vol] 33.3 g/dL Normal 32.0 - 36.0 g/dL [facility].; [facility], [facility]. MCV (RBC) [Entitic vol] 91.9 fL Normal 80.0 - 100.0 fL [facility], [facility]. Monocytes (Bld) [#/Vol] 380 {Cells}/uL Normal 200 - 950 {Cells}/uL [facility].; [facility], [facility]. Monocytes/100 WBC (Bld) 8 % Normal [facility], [facility]. Neutrophils (Bld) [#/Vol] 2640 {Cells}/uL Normal 1500 - 7800 {Cells}/uL [facility].; [employer] [facility], [facility]. Neutrophils/100 WBC (Bld) 55 % Normal [facility] [employer] [facility], [facility]. Platelets (Bld) [#/Vol] 196 10*3/uL Normal 140 - 400 10*3/uL [facility].; [employer] [facility], [facility]. RBC (Bld) [#/Vol] 4.01 10*6/uL Normal 3.80 - 5.1 0 10*6/uL [facility].; [employer] [facility], [facility]. WBC (Bld) [#/Vol] 4.8 10*3/uL Normal 3.8 - 10.8 10*3/uL [facility], [facility].; [employer], [facility]. Laboratory - Chemistry and C hemistry - challengeon 02-06-2013 Basic metabolic 2000 panel BMP with eGFR Normal [facility].; [facility], [facility]. Calcium [Mass/Vol] 9.0 mg/dL Normal 8.60 - 10.20 mg/dL [facility].; [employer], [facility]. Chloride [Moles/Vol] 105 mmol/L Normal 98 - 10 7 mmol/L [facility], [facility].; [employer] CO2 [Moles/Vol] 29.0 mmol/L Normal 13.0 - 29.0 mmol/L [facility].; [employer], [facility]. Creatinine [Mass/Vol] 0.6 mg/dL Normal 0.60 - 1.20 mg/dL [facility], [facility].; [employer] [facility], [facility]. GFR/1.73 sq M.predicted among blacks MDRD (S/P/Bld) [Vol rate/Area] mL/min/{1.73_m2} Normal 60 - 999 {ML/MINUTE} [facility], [facility].; [employer] [facility], [facility]. GFR/1.73 sq M.predicted MDRD (S/P/Bld) [Vol rate/Area] mL/min/{1.73_m2} Normal 60 - 999 {ML/MINUTE} [facility], [place].; [employer] [place] Glucose [Mass/Vol] 114 mg/dL Abnormal 74 - 106 mg/dL [employer] [facility], [facility].; [employer] Potassium [Moles/Vol] 4.4 mmol/L Normal 3.50 - 5.10 mmol/L [facility].; [employer] Sodium [Moles/Vol] 139 mmol/L Normal 136 - 145 mmol/L [employer] [facility], [facility].; [employer], [place] Urea nitrogen [Mass/Vol] 11 mg/dL Normal 6 - 20 mg/dL [employer] [facility], [place].; [employer] [place] No Panel Informationon 02-06 62 {years} Normal [employer] [facility] [employer], [place] Laboratory - Chemistry and C hemistry - challengeon 07-31-2012 Albumin [Mass/Vol] 4.9 g/dL Normal 3.6 - 5.1 g/dL [employer] [facility].; [facility] Albumin/Globulin [Mass ratio] 2.2 {ratio} Normal 1.0 - 2.5 [facility]. ALP [Catalytic activity/Vol] 111 U/L Normal 33 - 130 U/L [facility], [facility]. ALT [Catalytic activity/Vol] 62 U/L Abnormal 6 - 40 U/L [facility], [facility]. AST [Catalytic activity/Vol] 16 U/L Normal 10 - 35 U/L [facility], [facility]. Bilirubin [Mass/Vol] 0.3 mg/dL Normal 0.2 - 1 .2 mg/dL [facility], [facility]. Calcium [Mass/Vol] 10.0 mg/dL Normal 8.6 - 10. 4 mg/dL [facility], [facility]. Chloride [Moles/Vol] 109 mmol/L Normal 98 - 11 0 mmol/L [facility]. Cholesterol [Mass/Vol] 227 mg/dL Abnormal 125 - 200 mg/dL [facility].; [facility], [facility]. Cholesterol in HDL [Mass/Vol] 62 mg/dL Normal [facility]. Cholesterol in LDL [Mass/Vol] 126 mg/dL Normal [facility].; [employer] [facility]. Cholesterol non HDL [Mass/Vol] 165 mg/dL Abnormal [facility].; [facility]. Cholesterol.total/Chol esterol in HDL [Mass ratio] 3.7 {ratio} Normal [facility].; [employer] [facility]. CO2 [Moles/Vol] 24 mmol/L Normal 19 - 30 mmol/L [facility].; [facility], [facility]. Creatinine [Mass/Vol] 0.58 mg/dL Normal 0.50 - 0.99 mg/dL [facility].; [employer] [facility], [facility]. GFR/1.73 sq M.predicted among blacks MDRD (S/P/Bld) [Vol rate/Area] 113 {ML/MIN/1.73M2} Normal [facility], [facility].; [employer], [facility]. GFR/1.73 sq M.predicted MDRD (S/P/Bld) [Vol rate/Area] 97 {ML/MIN/1.73M2} Normal [facility], [facility].; [employer] Globulin (S) [Mass/Vol] 2.2 g/dL Normal 1.9 - 3.7 g/dL [facility].; [employer], [facility]. Glucose [Mass/Vol] 123 mg/dL Abnormal 65 - 99 mg/dL [facility].; [employer], [facility]. Potassium [Moles/Vol] 3.9 mmol/L Normal 3.5 - 5.3 mmol/L [facility].; [employer] [place] Protein [Mass/Vol] 7.1 g/dL Normal 6.1 - 8.1 g/dL [facility].; [employer] [place] Sodium [Moles/Vol] 142 mmol/L Normal 135 - 146 mmol/L [facility].; [employer], [place]. Triglyceride [Mass/Vol] 197 mg/dL Abnormal [employer] [facility].; [employer], [place]. Urea nitrogen [Mass/Vol] 13 mg/dL Normal 7 - 25 mg/dL [employer] [facility].; [employer], [place]. Urea nitrogen/Creatinine [Mass ratio] 22.1 mg/mg Abnormal 6 - 22 [facility].; [employer] Laboratory - Hematology and Cell countson 07-31-2012 Basophils (Bld) [#/Vol] 20 {Cells}/uL Normal 0 - 200 {Cells}/uL [facility].; [employer], [place]. Basophils/100 WBC (Bld) 0 % Normal 0 - 2 % [facility].; [employer] Eosinophils (Bld) [#/Vol] 170 {Cells}/uL Normal 15 - 500 {Cells}/uL [facility] [employer], [facility].; [employer] Eosinophils/100 WBC (Bld) 3 % Normal 0 - 8 % [facility].; [facility] Erythrocyte distribution width (RBC) [Ratio] 13.1 % Normal 11.0 - 15.0 % [facility], [facility].; [facility], [facility] Hematocrit (Bld) [Volume fraction] 41.3 % Normal 35.0 - 45.0 % [facility], [facility].; [facility], [facility] Hemoglobin (Bld) [Mass/Vol] 13.8 g/dL Normal 11.7 - 15.5 g/dL [facility], [facility] Lymphocytes (Bld) [#/Vol] 1150 {Cells}/uL Normal 850 - 3900 {Cells}/uL [facility], [facility].; [facility], [facility]. Lymphocytes/100 WBC (Bld) 18 % Normal 15 - 49 % [facility], [facility].; [facility], [facility]. MCH (RBC) [Entitic mass] 31.8 pg Normal 27.0 - 33.0 PG [facility], [facility].; [facility], [facility]. MCHC (RBC) [Mass/Vol] 33.5 g/dL Normal 32.0 - 36.0 g/dL [facility], [facility].; [facility], [facility]. MCV (RBC) [Entitic vol] 94.9 fL Normal 80.0 - 100.0 fL [facility].; [facility], [facility]. Monocytes (Bld) [#/Vol] 310 {Cells}/uL Normal 200 - 950 {Cells}/uL [facility], [facility].; [facility], [facility]. Monocytes/100 WBC (Bld) 5 % Normal 0 - 13 % [facility].; [facility], [facility]. Neutrophils (Bld) [#/Vol] 4620 {Cells}/uL Normal 1500 - 7800 {Cells}/uL [facility], [facility].; [facility], [facility]. Neutrophils/100 WBC (Bld) 74 % Normal 38 - 80 % [facility], [facility].; [facility], [facility]. Platelets (Bld) [#/Vol] 237 10*3/uL Normal 140 - 400 10*3/uL [facility].; [facility], [facility]. RBC (Bld) [#/Vol] 4.35 10*6/uL Normal 3.80 - 5.1 0 10*6/uL [employer], [place] WBC (Bld) [#/Vol] 6.3 10*3/uL Normal 3.8 - 10.8 10*3/uL [facility] [employer], [place].; [employer], [place] Laboratory - Hematology and Cell countson 12-31-2011 Basophils (Bld) [#/Vol] 40 {Cells}/uL Normal 0 - 200 {Cells}/uL [facility] [employer] Basophils/100 WBC (Bld) 0 % Normal 0 - 2 % [employer], [place] Eosinophils (Bld) [#/Vol] 130 {Cells}/uL Normal 15 - 500 {Cells}/uL [employer], [place].; [employer], [place]. Eosinophils/100 WBC (Bld) 2 % Normal 0 - 8 % [employer], [place] Erythrocyte distribution width (RBC) [Ratio] 13.0 % Normal 11.0 - 15.0 % [employer], [place]. Hematocrit (Bld) [Volume fraction] 43.0 % Normal 35.0 - 45.0 % [employer], [place] Hemoglobin (Bld) [Mass/Vol] 14.6 g/dL Normal 11.7 - 15.5 g/dL [employer], [place].; [employer] [place] Lymphocytes (Bld) [#/Vol] 1450 {Cells}/uL Normal 850 - 3900 {Cells}/uL [employer], [place]. Lymphocytes/100 WBC (Bld) 18 % Normal 15 - 49 % [employer], [place].; [employer], [place] MCH (RBC) [Entitic mass] 31.9 pg Normal 27.0 - 33.0 PG [employer], [place].; [employer] MCHC (RBC) [Mass/Vol] 34.0 g/dL Normal 32.0 - 36.0 g/dL [employer], [place] MCV (RBC) [Entitic vol] 93.8 fL Normal 80.0 - 100.0 fL [facility].; [facility]. Monocytes (Bld) [#/Vol] 260 {Cells}/uL Normal 200 - 950 {Cells}/uL [facility].; [employer] [place]. Monocytes/100 WBC (Bld) 3 % Normal 0 - 13 % [facility].; [employer] [facility]. Neutrophils (Bld) [#/Vol] 6150 {Cells}/uL Normal 1500 - 7800 {Cells}/uL [facility] [employer] [facility].; [employer], [place]. Neutrophils/100 WBC (Bld) 77 % Normal 38 - 80 % [employer] [facility].; [employer], [facility]. Platelets (Bld) [#/Vol] 267 10*3/uL Normal 140 - 400 10*3/uL [facility] [employer], [place] RBC (Bld) [#/Vol] 4.58 10*6/uL Normal 3.80 - 5.1 0 10*6/uL [facility] [employer] [facility].; [employer], [place]. WBC (Bld) [#/Vol] 8.0 10*3/uL Normal 3.8 - 10.8 10*3/uL [employer], [place] Laboratory - Chemistry and C hemistry - challengeon 12-03-2011 Albumin [Mass/Vol] 4.5 g/dL Normal 3.6 - 5.1 g/dL [facility].; [employer], [facility]. Albumin/Globulin [Mass ratio] 2.2 {ratio} Abnormal 1.0 - 2.1 [employer] [facility].; [employer], [place] ALP [Catalytic activity/Vol] 91 U/L Normal 33 - 130 U/L [employer] [facility].; [employer], [place] ALT [Catalytic activity/Vol] 23 U/L Normal 6 - 40 U/L [employer] [facility].; [employer] [place] AST [Catalytic activity/Vol] 19 U/L Normal 10 - 35 U/L [employer] [facility].; [employer]. Bilirubin [Mass/Vol] 0.4 mg/dL Normal 0.2 - 1 .2 mg/dL [facility], [facility].; [facility], [facility]. Calcium [Mass/Vol] 9.4 mg/dL Normal 8.6 - 10. 4 mg/dL [facility], [facility].; [facility], [facility]. Chloride [Moles/Vol] 108 mmol/L Normal 98 - 11 0 mmol/L [facility], [facility]. Cholesterol [Mass/Vol] 282 mg/dL Abnormal 125 - 200 mg/dL [facility], [facility]. Cholesterol in HDL [Mass/Vol] 51 mg/dL Normal [facility], [facility]. Cholesterol in LDL [Mass/Vol] 192 mg/dL Abnormal [facility], [facility]. Cholesterol non HDL [Mass/Vol] 231 mg/dL Normal [facility].; [facility], [facility]. Cholesterol.total/Chol esterol in HDL [Mass ratio] 5.5 {ratio} Abnormal [facility].; [facility], [facility]. CO2 [Moles/Vol] 26 mmol/L Normal 21 - 33 mmol/L [facility].; [facility], [facility]. Creatinine [Mass/Vol] 0.55 mg/dL Normal 0.50 - 0.99 mg/dL [facility], [facility].; [facility], [facility]. GFR/1.73 sq M.predicted among blacks MDRD (S/P/Bld) [Vol rate/Area] 116 {ML/MIN/1.73M2} Normal [facility], [facility].; [facility], [facility]. GFR/1.73 sq M.predicted MDRD (S/P/Bld) [Vol rate/Area] 100 {ML/MIN/1.73M2} Normal [facility], [facility].; [facility], [facility]. Globulin (S) [Mass/Vol] 2.1 g/dL Abnormal 2.2 - 3.9 g/dL [facility], [facility].; [facility], [facility]. Glucose [Mass/Vol] 103 mg/dL Abnormal 65 - 99 mg/dL [facility], [facility]. Potassium [Moles/Vol] 4.1 mmol/L Normal 3.5 - 5.3 mmol/L [facility], [facility] Protein [Mass/Vol] 6.6 g/dL Normal 6.2 - 8.3 g/dL [facility], [facility]. Sodium [Moles/Vol] 141 mmol/L Normal 135 - 146 mmol/L [facility], [facility] Triglyceride [Mass/Vol] 197 mg/dL Abnormal [facility], [facility] Urea nitrogen [Mass/Vol] 16 mg/dL Normal 7 - 25 mg/dL [facility], [facility] Urea nitrogen/Creatinine [Mass ratio] 28.7 mg/mg Abnormal 6 - 22 [facility], [facility] Laboratory - Chemistry and C hemistry - challengeon 03-20-2011 Albumin [Mass/Vol] 4.5 g/dL Normal 3.6 - 5.1 g/dL [facility], [facility]. Albumin/Globulin [Mass ratio] 2.1 {ratio} Normal 1.0 - 2.1 [facility], [facility]. ALP [Catalytic activity/Vol] 113 U/L Normal 33 - 130 U/L [facility], [facility]. ALT [Catalytic activity/Vol] 19 U/L Normal 6 - 40 U/L [facility], [facility]. AST [Catalytic activity/Vol] 16 U/L Normal 10 - 35 U/L [facility], [facility].; [facility], [facility]. Bilirubin [Mass/Vol] 0.3 mg/dL Normal 0.2 - 1 .2 mg/dL [facility], [facility]. Calcium [Mass/Vol] 9.7 mg/dL Normal 8.6 - 10. 2 mg/dL [facility], [facility].; [facility], [facility] Chloride [Moles/Vol] 105 mmol/L Normal 98 - 11 0 mmol/L [facility]; [facility]. CO2 [Moles/Vol] 24 mmol/L Normal 21 - 33 mmol/L [facility], [facility]. Creatinine [Mass/Vol] 0.57 mg/dL Abnormal 0.60 - 1.18 mg/dL [facility], [facility]. GFR/1.73 sq M.predicted among blacks MDRD (S/P/Bld) [Vol rate/Area] 115 {ML/MIN/1.73M2} Normal [facility], [facility]. GFR/1.73 sq M.predicted MDRD (S/P/Bld) [Vol rate/Area] 99 {ML/MIN/1.73M2} Normal [facility], [facility].; [facility], [facility]. Globulin (S) [Mass/Vol] 2.2 g/dL Normal 2.2 - 3.9 g/dL [facility], [facility]. Glucose [Mass/Vol] 108 mg/dL Abnormal 65 - 99 mg/dL [facility], [facility]. Potassium [Moles/Vol] 4.3 mmol/L Normal 3.5 - 5.3 mmol/L [facility], [facility]. Protein [Mass/Vol] 6.7 g/dL Normal 6.2 - 8.3 g/dL [facility], [facility].; [facility], [facility]. Sodium [Moles/Vol] 140 mmol/L Normal 135 - 146 mmol/L [facility].; [facility], [facility] [facility] Urea nitrogen [Mass/Vol] 9 mg/dL Normal 7 - 25 mg/dL [facility], [facility].; [facility], [facility]. Urea nitrogen/Creatinine [Mass ratio] 15.4 mg/mg Normal 6 - 22 [facility] [employer] [facility], [facility]. Laboratory - Hematology and Cell countson 03-20-2011 Basophils (Bld) [#/Vol] 10 {Cells}/uL Normal 0 - 200 {Cells}/uL [facility]. Basophils/100 WBC (Bld) 0 % Normal 0 - 2 % [facility]. Eosinophils (Bld) [#/Vol] 40 {Cells}/uL Normal 15 - 500 {Cells}/uL [facility].; [facility], [facility]. Eosinophils/100 WBC (Bld) 1 % Normal 0 - 8 % [facility], [facility].; [facility], [facility]. Erythrocyte distribution width (RBC) [Ratio] 13.0 % Normal 11.0 - 15.0 % [facility].; [facility], [facility] Hematocrit (Bld) [Volume fraction] 40.4 % Normal 35.0 - 45.0 % [facility], [facility].; [facility]. Hemoglobin (Bld) [Mass/Vol] 13.4 g/dL Normal 11.7 - 15.5 g/dL [facility], [facility] Lymphocytes (Bld) [#/Vol] 1510 {Cells}/uL Normal 850 - 3900 {Cells}/uL [facility].; [employer], [facility]. Lymphocytes/100 WBC (Bld) 28 % Normal 15 - 49 % [facility].; [facility], [facility]. MCH (RBC) [Entitic mass] 31.6 pg Normal 27.0 - 33.0 PG [facility].; [employer] [facility], [facility]. MCHC (RBC) [Mass/Vol] 33.2 g/dL Normal 32.0 - 36.0 g/dL [facility], [facility].; [employer], [facility]. MCV (RBC) [Entitic vol] 95.2 fL Normal 80.0 - 100.0 fL [facility].; [facility], [facility]. Monocytes (Bld) [#/Vol] 280 {Cells}/uL Normal 200 - 950 {Cells}/uL [facility].; [facility], [facility]. Monocytes/100 WBC (Bld) 5 % Normal 0 - 13 % [facility], [facility].; [facility], [facility]. Neutrophils (Bld) [#/Vol] 3550 {Cells}/uL Normal 1500 - 7800 {Cells}/uL [facility].; [employer]. Neutrophils/100 WBC (Bld) 66 % Normal 38 - 80 % [facility]. Platelets (Bld) [#/Vol] 228 10*3/uL Normal 140 - 400 10*3/uL [employer]. RBC (Bld) [#/Vol] 4.25 10*6/uL Normal 3.80 - 5.1 0 10*6/uL [employer]. WBC (Bld) [#/Vol] 5.4 10*3/uL Normal 3.8 - 10.8 10*3/uL [employer]. Laboratory - Chemistry and C hemistry - challengeon 07-13-2010 ALT [Catalytic activity/Vol] 19 U/L Normal 6 - 40 U/L [employer] [facility] [place]. Cholesterol [Mass/Vol] 227 mg/dL Abnormal 125 - 200 mg/dL [employer] [facility].; [employer]. Cholesterol in HDL [Mass/Vol] 55 mg/dL Normal [employer]. Cholesterol in LDL [Mass/Vol] 130 mg/dL Abnormal [employer] [facility].; [employer]. Cholesterol.total/Chol esterol in HDL [Mass ratio] 4.1 {ratio} Normal [employer].; [employer]. Cobalamin (Vitamin B12) [Mass/Vol] 423 pg/mL Normal 200 - 1100 pg/mL [employer] [facility].; [employer]. Iron [Mass/Vol] 66 ug/dL Normal 40 - 160 ug/dL [employer]. Triglyceride [Mass/Vol] 212 mg/dL Abnormal [employer].; [employer]. Laboratory - Hematology and Cell countson 07-13-2010 Basophils (Bld) [#/Vol] 10 {Cells}/uL Normal 0 - 200 {Cells}/uL [employer].; [employer]. Basophils/100 WBC (Bld) 0 % Normal 0 - 2 % [facility], [facility] Eosinophils (Bld) [#/Vol] 150 {Cells}/uL Normal 15 - 500 {Cells}/uL [facility], [facility]. Eosinophils/100 WBC (Bld) 4 % Normal 0 - 8 % [facility], [facility].; [facility], [facility]. Erythrocyte distribution width (RBC) [Ratio] 13.8 % Normal 11.0 - 15.0 % [facility], [facility] Hematocrit (Bld) [Volume fraction] 37.9 % Normal 35.0 - 45.0 % [facility], [facility].; [facility], [facility] Hemoglobin (Bld) [Mass/Vol] 12.4 g/dL Normal 11.7 - 15.5 g/dL [facility], [facility] Lymphocytes (Bld) [#/Vol] 1270 {Cells}/uL Normal 850 - 3900 {Cells}/uL [facility].; [facility], [facility]. Lymphocytes/100 WBC (Bld) 32 % Normal 15 - 49 % [facility].; [facility], [facility]. MCH (RBC) [Entitic mass] 30.6 pg Normal 27.0 - 33.0 PG [facility] [employer] [facility], [facility]. MCHC (RBC) [Mass/Vol] 32.7 g/dL Normal 32.0 - 36.0 g/dL [facility].; [employer] [facility], [facility]. MCV (RBC) [Entitic vol] 93.8 fL Normal 80.0 - 100.0 fL [facility].; [facility], [facility]. Monocytes (Bld) [#/Vol] 280 {Cells}/uL Normal 200 - 950 {Cells}/uL [facility].; [facility], [facility]. Monocytes/100 WBC (Bld) 7 % Normal 0 - 13 % [facility].; [facility], [facility]. Neutrophils (Bld) [#/Vol] 2210 {Cells}/uL Normal 1500 - 7800 {Cells}/uL [facility].; [facility], [facility]. Neutrophils/100 WBC (Bld) 57 % Normal 38 - 80 % [facility], [facility] Platelets (Bld) [#/Vol] 247 10*3/uL Normal 140 - 400 10*3/uL [facility], [facility]. Platelets LM Ql (Bld) NORMAL Normal [facility], [facility] RBC (Bld) [#/Vol] 4.04 10*6/uL Normal 3.80 - 5.1 0 10*6/uL [facility], [facility]. RBC morphology finding Nom (Bld) NORMAL Normal [facility]; [facility], [facility] WBC (Bld) [#/Vol] 3.9 10*3/uL Normal 3.8 - 10.8 10*3/uL [facility], [facility]. Laboratory - Chemistry and C hemistry - challengeon 03-26-2010 Calcium [Mass/Vol] 9.6 mg/dL Normal 8.6 - 10. 2 mg/dL [facility], [facility]. Chloride [Moles/Vol] 109 mmol/L Normal 98 - 11 0 mmol/L [facility], [facility]. CO2 [Moles/Vol] 26 mmol/L Normal 21 - 33 mmol/L [facility], [facility]. Creatinine [Mass/Vol] 0.54 mg/dL Abnormal 0.60 - 1.18 mg/dL [facility], [facility]. Glucose [Mass/Vol] 106 mg/dL Abnormal 65 - 99 mg/dL [facility], [facility]. Iron [Mass/Vol] 66 ug/dL Normal 40 - 160 ug/dL [facility], [facility]. Potassium [Moles/Vol] 4.3 mmol/L Normal 3.5 - 5.3 mmol/L [facility], [facility].; [facility], [facility] Sodium [Moles/Vol] 143 mmol/L Normal 135 - 146 mmol/L [facility] [employer] [facility]. Urea nitrogen [Mass/Vol] 12 mg/dL Normal 7 - 25 mg/dL [facility].; [employer], [facility]. Urea nitrogen/Creatinine [Mass ratio] 22.8 mg/mg Abnormal [facility].; [employer], [facility] Laboratory - Hematology and Cell countson 03-26-2010 Basophils (Bld) [#/Vol] 10 {Cells}/uL Normal 0 - 200 {Cells}/uL [facility].; [employer] [facility]. Basophils/100 WBC (Bld) 0 % Normal 0 - 2 % [facility].; [employer] [facility], [facility] Eosinophils (Bld) [#/Vol] 150 {Cells}/uL Normal 15 - 500 {Cells}/uL [facility].; [employer], [facility] Eosinophils/100 WBC (Bld) 4 % Normal 0 - 8 % [facility].; [employer] Erythrocyte distribution width (RBC) [Ratio] 14.7 % Normal 11.0 - 15.0 % [facility].; [employer], [place]. Hematocrit (Bld) [Volume fraction] 35.0 % Normal 35.0 - 45.0 % [facility].; [employer], [facility]. Hemoglobin (Bld) [Mass/Vol] 12.0 g/dL Normal 11.7 - 15.5 g/dL [facility].; [employer] [facility], [facility]. Lymphocytes (Bld) [#/Vol] 1240 {Cells}/uL Normal 850 - 3900 {Cells}/uL [facility].; [employer] [facility]. Lymphocytes/100 WBC (Bld) 31 % Normal 15 - 49 % [facility].; [employer], [place]. MCH (RBC) [Entitic mass] 32.6 pg Normal 27.0 - 33.0 PG [employer] [facility].; [employer], [facility]. MCHC (RBC) [Mass/Vol] 34.4 g/dL Normal 32.0 - 36.0 g/dL [facility].; [employer], [place]. MCV (RBC) [Entitic vol] 94.8 fL Normal 80.0 - 100.0 fL [facility].; [employer] [facility]. Monocytes (Bld) [#/Vol] 260 {Cells}/uL Normal 200 - 950 {Cells}/uL [facility].; [employer]. Monocytes/100 WBC (Bld) 6 % Normal 0 - 13 % [facility].; [employer] [facility]. Neutrophils (Bld) [#/Vol] 2340 {Cells}/uL Normal 1500 - 7800 {Cells}/uL [facility].; [employer]. Neutrophils/100 WBC (Bld) 59 % Normal 38 - 80 % [facility].; [employer]. Platelets (Bld) [#/Vol] 209 10*3/uL Normal 140 - 400 10*3/uL [facility].; [employer]. Platelets LM Ql (Bld) NORMAL Normal [facility].; [employer] [facility] RBC (Bld) [#/Vol] 3.70 10*6/uL Abnormal 3.80 - 5.1 0 10*6/uL [facility].; [employer], [place]. RBC morphology finding Nom (Bld) NORMAL Normal [employer] [facility].; [employer], [place]. WBC (Bld) [#/Vol] 4.0 10*3/uL Normal 3.8 - 10.8 10*3/uL [facility].; [employer] [facility]. No Panel Informationon 03-26 >60 Normal [employer] [facility].; [employer] Vital Signs Date Time Vital Sign Value Performing Clinician Martina lerma 08-18-2023 17:42-0400 Body height 152.4 cm [facility] 08-18-2023 17:42-0400 Body temperature 97.8 [degF] [facility] 08-18-2023 17:42-0400 Diastolic blood pressure 74 mm[Hg] [facility] 08-18-2023 17:42-0400 Heart rate 84 /min [facility] 08-18-2023 17:42-0400 Respiratory rate 18 /min [facility] 08-18-2023 17:42-0400 SaO2% (BldA) [Mass fraction] 97 % [facility] 08-18-2023 17:42-0400 Systolic blood pressure 124 mm[Hg] [facility] 07-22-2023 12:56-0400 Body height 149.86 cm [facility] Duc [facility] [employer] [facility], [place] 07-22-2023 12:56-0400 Body mass index (BMI) [Ratio] 27.67 kg/m2 [facility] [employer] [facility] [employer] [facility] 07-22-2023 12:56-0400 Body surface area Derived from formula 1.57 m2 [facility] Duc [employer] [facility] 07-22-2023 12:56-0400 Body weight 62.14 kg [facility] Duc [facility] [employer] [facility] 07-22-2023 12:56-0400 Diastolic blood pressure 76 mm[Hg] [facility] Duc [facility] [employer] [facility] 07-22-2023 12:56-0400 Heart rate 104 /min [facility] Duc [facility] [employer] [facility] 07-22-2023 12:56-0400 Systolic blood pressure 152 mm[Hg] [facility] Duc [facility] [employer] [facility] 07-17-2023 17:44-0400 Body temperature 97.6 [degF] [facility] 07-17-2023 17:44-0400 Diastolic blood pressure 65 mm[Hg] [facility] 07-17-2023 17:44-0400 Heart rate 61 /min [facility] 07-17-2023 17:44-0400 Respiratory rate 18 /min [facility] 07-17-2023 17:44-0400 SaO2% (BldA) [Mass fraction] 96 % [facility] 07-17-2023 17:44-0400 Systolic blood pressure 115 mm[Hg] [facility] 07-17-2023 12:33-0400 Body height 152.4 cm [facility] 07-17-2023 12:33-0400 Body mass index (BMI) [Ratio] 27.4 kg/m2 [facility] 07-17-2023 12:33-0400 Body weight 63.8 kg [facility] 01-20-2023 13:32-0400 Body height 149.86 cm [facility] [place] [facility] [employer] [facility] 01-20-2023 13:32-0400 Body mass index (BMI) [Ratio] 26.86 kg/m2 [facility] [employer] [facility] 01-20-2023 13:32-0400 Body surface area Derived from formula 1.55 m2 [facility] [employer] [facility] 01-20-2023 13:32-0400 Body temperature 98.6 [degF] [facility] [employer] [facility] 01-20-2023 13:32-0400 Body weight 60.33 kg [facility] [place] [facility] [employer] [facility] 01-20-2023 13:32-0400 Diastolic blood pressure 97 mm[Hg] [facility] Duc [facility] [employer] [facility] 01-20-2023 13:32-0400 Heart rate 103 /min [facility].; [employer] [facility] 01-20-2023 13:32-0400 Inhaled oxygen concentration 20 % [facility] [employer] 01-20-2023 13:32-0400 Inhaled oxygen concentration 21 % [facility] [employer] 01-20-2023 13:32-0400 SaO2% (BldA) [Mass fraction] 98 % Eboni Xavier [facility], [facility].; [facility], [facility]. 01-20-2023 13:32-0400 Systolic blood pressure 152 mm[Hg] Eboni Xavier [facility], [facility].; [facility] 12-18-2022 13:25-0400 Body height 149.86 cm [facility], [facility].; [employer] [facility] 12-18-2022 13:25-0400 Body mass index (BMI) [Ratio] 27.23 kg/m2 [facility], [facility].; [facility]. 12-18-2022 13:25-0400 Body surface area Derived from formula 1.56 m2 [facility], [facility].; [employer] [facility], [facility]. 12-18-2022 13:25-0400 Body temperature 97.2 [degF] [facility], [facility].; [employer] [facility], [facility]. 12-18-2022 13:25-0400 Body weight 61.15 kg [facility], [facility].; [employer] [facility], [facility]. 12-18-2022 13:25-0400 Diastolic blood pressure 63 mm[Hg] [facility], [facility].; [employer] [facility], [facility]. 12-18-2022 13:25-0400 Heart rate 71 /min [facility], [facility].; [employer] [facility], [facility]. 12-18-2022 13:25-0400 Inhaled oxygen concentration 20 % [facility], [facility].; [facility]. 12-18-2022 13:25-0400 Inhaled oxygen concentration 21 % [facility] [employer], [place] 12-18-2022 13:25-0400 SaO2% (BldA) [Mass fraction] 94 % [facility], [facility].; [employer]. 12-18-2022 13:25-0400 Systolic blood pressure 120 mm[Hg] Archana Ruvalcabaemrcedez FARR[employer] [facility], [facility].; [facility]. 06-18-2022 11:11-0500 Body height 149.86 cm Liss Velasco MA [facility], [facility].; [employer] [facility], [facility]. 06-18-2022 11:11-0500 Body mass index (BMI) [Ratio] 26.66 kg/m2 Liss Velasco MA [facility], [facility].; [facility]. 06-18-2022 11:11-0500 Body surface area Derived from formula 1.55 m2 Liss Velasco MA [facility]. 06-18-2022 11:11-0500 Body weight 59.88 kg Liss Velasco MA [facility] [employer] [facility], [facility]. 06-18-2022 11:11-0500 Diastolic blood pressure 83 mm[Hg] Liss Velasco MA [facility] [employer] [facility]. 06-18-2022 11:11-0500 Heart rate 73 /min Liss Velasco MA [facility] [place] [employer] [facility]. 06-18-2022 11:11-0500 Systolic blood pressure 126 mm[Hg] Liss Velasco MA [facility], [facility].; [employer] [facility], [facility]. 06-06-2022 15:18-0500 Body height 152.[address] Elroy Weiss Work Phone: [facility] 06-06-2022 15:18-0500 Body mass index (BMI) [Ratio] 25.4 kg/m2 Dr. Elroy Weiss Work Phone: [facility] 06-06-2022 15:18-0500 Body weight 58.[address] Elroy Weiss Work Phone: [facility] 06-06-2022 15:18-0500 Diastolic blood pressure 64 mm[Hg] Dr. Elroy Weiss Work Phone: [facility] 06-06-2022 15:18-0500 Heart rate 78 /min Dr. Elroy Weiss Work Phone: [facility] 06-06-2022 15:18-0500 Respiratory rate 20 /min Dr. Elroy Weiss Work Phone: [facility] 06-06-2022 15:18-0500 Systolic blood pressure 111 mm[Hg] Dr. Elroy Weiss Work Phone: [facility] 06-04-2022 12:34-0500 Body height 152.4 cm Junior Santiago MD Work Phone: [facility] 06-04-2022 12:34-0500 Body mass index (BMI) [Ratio] 26.13 kg/m2 Junior Santiago MD Work Phone: [facility] 06-04-2022 12:34-0500 Body weight 60.69 kg Junior Santiago MD Work Phone: [facility] 04-23-2022 11:07-0500 Diastolic blood pressure 78 mm[Hg] [facility] 04-23-2022 11:07-0500 Heart rate 78 /min [facility] 04-23-2022 11:07-0500 Respiratory rate 16 /min [facility] 04-23-2022 11:07-0500 SaO2% (BldA) [Mass fraction] 95 % [facility] 04-23-2022 11:07-0500 Systolic blood pressure 106 mm[Hg] [facility] 04-23-2022 07:35-0500 Body height 152.4 cm [facility] Work Phone: 04-23-2022 07:35-0500 Body mass index (BMI) [Ratio] 25.4 kg/m2 [facility] 04-23-2022 07:35-0500 Body temperature 97.9 [degF] [facility] 04-23-2022 07:35-0500 Body weight 58.96 kg [facility] 04-02-2022 12:54-0500 Body height 149.86 cm Eboni Xavier [employer] [facility] 04-02-2022 12:54-0500 Body mass index (BMI) [Ratio] 27.47 kg/m2 Eboni Xavier [facility] [employer] 04-02-2022 12:54-0500 Body surface area Derived from formula 1.57 m2 Kathy Duc [facility] [employer] [facility] 04-02-2022 12:54-0500 Body temperature 100.4 [degF] KathyRenetta Xavier [facility] [employer] 04-02-2022 12:54-0500 Body weight 61.69 kg Kathy Duc [facility] [employer] 04-02-2022 12:54-0500 Diastolic blood pressure 81 mm[Hg] [facility] Duc [facility] [employer] 04-02-2022 12:54-0500 Heart rate 105 /min Kathy Stuckey [facility] 04-02-2022 12:54-0500 Inhaled oxygen concentration 20 % [facility] Duc [facility] [employer] 04-02-2022 12:54-0500 Inhaled oxygen concentration 21 % [facility] Duc [facility] [employer] 04-02-2022 12:54-0500 SaO2% (BldA) [Mass fraction] 97 % Kathy Stuckey [facility] [employer] [facility] [employer] 04-02-2022 12:54-0500 Systolic blood pressure 134 mm[Hg] Kathy Stuckey [facility] [employer] [facility] [facility] [employer] 01-08-2022 14:19-0400 Body height 152.4 cm Junior Santiago MD Work Phone: [facility] 01-08-2022 14:19-0400 Body mass index (BMI) [Ratio] 27.15 kg/m2 Junior Santiago MD Work Phone: [facility] 01-08-2022 14:190400 Body weight 63.05 kg Junior Santiago MD Work Phone: [facility] 01-08-2022 14:19-0400 Diastolic blood pressure 68 mm[Hg] Junior Santiago MD Work Phone: [facility] 01-08-2022 14:19-0400 Heart rate 82 /min Junior Santiago MD Work Phone: [facility] 01-08-2022 14:190400 SaO2% (BldA) [Mass fraction] 96 % Junior Santiago MD Work Phone: [facility] 01-08-2022 14:19-0400 Systolic blood pressure 143 mm[Hg] Junior Santiago MD Work Phone: [facility] 11-08-2021 10:55-0400 Body height 149.86 cm Liss Michelle LPN [facility], [facility].; [facility]. 11-08-2021 10:55-0400 Body mass index (BMI) [Ratio] 27.67 kg/m2 Liss Michelle LPN [facility], [facility].; [facility]. 11-08-2021 10:55-0400 Body surface area Derived from formula 1.57 m2 Liss Michelle LPN [facility], [facility].; [facility], [facility]. 11-08-2021 10:55-0400 Body weight 62.14 kg Liss Michelle LPN [facility], [facility].; [facility], [facility]. 11-08-2021 10:55-0400 Diastolic blood pressure 73 mm[Hg] Liss Michelle LPN [facility], [facility].; [facility], [facility]. 11-08-2021 10:55-0400 Heart rate 86 /min Liss Michelle LPN [facility].; [facility], [facility] 11-08-2021 10:55-0400 Systolic blood pressure 124 mm[Hg] Liss Michelle LPN [facility] 08-14-2021 08:02-0400 Body height 152.[address] Elroy Weiss Work Phone: [facility] Work Phone: 08-14-2021 08:02-0400 Body mass index (BMI) [Ratio] 26.4 kg/m2 Dr. Elroy Weiss Work Phone: [facility] Work Phone: 08-14-2021 08:02-0400 Body weight 61.[address] Elroy Weiss Work Phone: [facility] Work Phone: 08-14-2021 08:02-0400 Diastolic blood pressure 80 mm[Hg] Dr. Elroy Weiss Work Phone: [facility] Work Phone: 08-14-2021 08:02-0400 Heart rate 92 /min Dr. Elroy Weiss Work Phone: [facility] Work Phone: 08-14-2021 08:02-0400 Respiratory rate 16 /min Dr. Elroy Weiss Work Phone: [facility] Work Phone: 08-14-2021 08:02-0400 SaO2% (BldA) [Mass fraction] 97 % Dr. Elroy Weiss Work Phone: [facility] Work Phone: 08-14-2021 08:02-0400 Systolic blood pressure 132 mm[Hg] Dr. Elroy Weiss Work Phone: [facility] Work Phone: 06-21-2021 10:26-0500 Body height 149.86 cm Nisha Galloway CMA [facility], [facility] 06-21-2021 10:26-0500 Body mass index (BMI) [Ratio] 27.47 kg/m2 [facility]ay [facility].; [employer] [facility] 06-21-2021 10:26-0500 Body surface area Derived from formula 1.57 m2 Nisha [facility]alloway [facility].; [employer] 06-21-2021 10:26-0500 Body weight 61.69 kg Nisha Galloway [facility].; [employer]. 06-21-2021 10:26-0500 Diastolic blood pressure 77 mm[Hg] Nisha [facility]alloway [facility].; [facility] [employer]. 06-21-2021 10:26-0500 Heart rate 77 /min Nisha [facility]alloway [facility].; [employer]. 06-21-2021 10:26-0500 Inhaled oxygen concentration 20 % [facility]alloway [facility] [employer]. 06-21-2021 10:26-0500 Inhaled oxygen concentration 21 % Nisha Galloway [facility].; [employer]. 06-21-2021 10:26-0500 SaO2% (BldA) [Mass fraction] 92 % Nisha Galloway [facility].; [employer]. 06-21-2021 10:26-0500 Systolic blood pressure 152 mm[Hg] [facility]alloway [facility] [employer]. 06-14-2021 13:45-0500 Body temperature 97.7 [degF] Dr. Elroy Weiss Work Phone: [facility] Work Phone: 06-14-2021 13:45-0500 Diastolic blood pressure 82 mm[Hg] Dr. Elroy Weiss Work Phone: [facility] Work Phone: 06-14-2021 13:45-0500 Heart rate 88 /min Dr. Elroy Weiss Work Phone: [facility] Work Phone: 06-14-2021 13:45-0500 Respiratory rate 16 /min Dr. Elroy Weiss Work Phone: [facility] Work Phone: 06-14-2021 13:45-0500 SaO2% (BldA) [Mass fraction] 92 % Dr. Elroy Weiss Work Phone: [facility] Work Phone: 06-14-2021 13:45-0500 Systolic blood pressure 145 mm[Hg] Dr. Elroy Weiss Work Phone: [facility] Work Phone: 06-14-2021 04:14-0500 Body weight 59.[address] Elroy Weiss Work Phone: [facility] Work Phone: 06-12-2021 21:16-0500 Body mass index (BMI) [Ratio] 25.4 kg/m2 Dr. Elroy Weiss Work Phone: [facility] Work Phone: 06-12-2021 14:28-0500 Body height 149.86 cm Elroy Weiss MD Work Phone: [employer]. 06-12-2021 14:28-0500 Body mass index (BMI) [Ratio] 27.87 kg/m2 Elroy Weiss MD Work Phone: [employer]. 06-12-2021 14:28-0500 Body surface area Derived from formula 1.58 m2 Elroy Weiss MD Work Phone: [employer]. 06-12-2021 14:28-0500 Body weight 62.6 kg Elroy Weiss MD Work Phone: [employer]. 06-12-2021 14:28-0500 Diastolic blood pressure 95 mm[Hg] Elroy Weiss MD Work Phone: [employer]. 06-12-2021 14:28-0500 Heart rate 111 /min Elroy Weiss MD Work Phone: [employer]. 06-12-2021 14:28-0500 Inhaled oxygen concentration 20 % Elroy Weiss MD Work Phone: [employer].; [employer]. 06-12-2021 14:28-0500 Inhaled oxygen concentration 21 % Elroy Weiss MD Work Phone: [employer]. 06-12-2021 14:28-0500 Respiratory rate 24 /min Elroy Weiss MD Work Phone: [employer]. 06-12-2021 14:28-0500 SaO2% (BldA) [Mass fraction] 93 % Elroy Weiss MD Work Phone: [employer]. 06-12-2021 14:28-0500 Systolic blood pressure 204 mm[Hg] Elroy Weiss MD Work Phone: [employer]. 05-10-2021 07:52-0500 Body height 149.86 cm [facility] [employer] [facility].; [employer]. 05-10-2021 07:52-0500 Body mass index (BMI) [Ratio] 27.47 kg/m2 Pascale Brar [facility] [employer] [facility].; [employer]. 05-10-2021 07:52-0500 Body surface area Derived from formula 1.57 m2 Pascale Brar LPN [facility] [facility].; [employer]. 05-10-2021 07:52-0500 Body weight 61.69 kg Pascale Brar LPN [place] [employer] [facility], [facility].; [employer]. 05-10-2021 07:52-0500 Diastolic blood pressure 68 mm[Hg] Pascale Brar LPN [employer] [facility].; [employer]. 05-10-2021 07:52-0500 Heart rate 82 /min Pascale Brar LPN [facility] [employer] [facility].; [employer]. 05-10-2021 07:52-0500 Systolic blood pressure 111 mm[Hg] Pascale Brar LPN [employer].; [employer]. 04-09-2021 14:32-0500 Body height 149.86 cm Elroy Weiss MD Work Phone: [employer].; [employer]. 04-09-2021 14:32-0500 Body mass index (BMI) [Ratio] 28.28 kg/m2 Elroy Weiss MD Work Phone: [employer]. 04-09-2021 14:32-0500 Body surface area Derived from formula 1.58 m2 Elroy Weiss MD Work Phone: [employer].; [employer]. 04-09-2021 14:32-0500 Body temperature 98 [degF] Elroy Weiss MD Work Phone: [employer].; [employer]. 04-09-2021 14:32-0500 Body weight 63.5 kg Elroy Weiss MD Work Phone: [employer]. 04-09-2021 14:32-0500 Diastolic blood pressure 81 mm[Hg] Elroy Weiss MD Work Phone: [employer]. 04-09-2021 14:32-0500 Heart rate 109 /min Elroy Weiss MD Work Phone: [employer]. 04-09-2021 14:32-0500 Inhaled oxygen concentration 20 % Elroy Weiss MD Work Phone: [employer]. 04-09-2021 14:32-0500 Inhaled oxygen concentration 21 % Elroy Weiss MD Work Phone: [facility].; [facility], [place]. 04-09-2021 14:32-0500 SaO2% (BldA) [Mass fraction] 99 % Elroy Weiss MD Work Phone: [facility], [place].; [employer] 04-09-2021 14:32-0500 Systolic blood pressure 136 mm[Hg] Elroy Weiss MD Work Phone: [facility], [place].; [employer] [place]. 02-26-2021 10:130400 Body height 149.86 cm [facility].; [employer], [place]. 02-26-2021 10:13-0400 Body mass index (BMI) [Ratio] 27.87 kg/m2 [facility] Duc [facility], Inc.; [employer], [place]. 02-26-2021 10:13-0400 Body surface area Derived from formula 1.58 m2 [facility] Duc [facility], [facility].; [employer], [place]. 02-26-2021 10:13-0400 Body weight 62.6 kg [facility] Duc [facility], Inc.; [employer] 02-26-2021 10:13-0400 Diastolic blood pressure 93 mm[Hg] [facility] Duc [facility], Inc.; [employer], [place]. 02-26-2021 10:13-0400 Heart rate 77 /min [facility] [place] [facility], [facility].; [employer], [place]. 02-26-2021 10:13-0400 Systolic blood pressure 180 mm[Hg] Kathy Stuckey [facility] [employer] [facility], [facility].; [employer] 02-05-2021 08:31-0400 Body height 149.86 cm [facility] Duc [facility], Inc.; [employer], [place]. 02-05-2021 08:31-0400 Body mass index (BMI) [Ratio] 26.86 kg/m2 Eboni Xavier [employer] [facility], Inc.; [facility], [facility] 02-05-2021 08:31-0400 Body surface area Derived from formula 1.55 m2 Eboni Xavier [facility], Inc.; [facility] 02-05-2021 08:31-0400 Body weight 60.33 kg Eboni Xavier [facility], Inc.; [employer] 02-05-2021 08:31-0400 Diastolic blood pressure 70 mm[Hg] Eboni Xavier [facility], Inc.; [employer] 02-05-2021 08:31-0400 Heart rate 68 /min KathyRenetta Xavier [facility], Inc.; [employer] 02-05-2021 08:31-0400 Systolic blood pressure 113 mm[Hg] Eboni Xavier [facility], Inc.; [employer] 12-26-2020 08:27-0400 Body height 149.86 cm Eboni Xavier [facility], Inc.; [employer] 12-26-2020 08:27-0400 Body mass index (BMI) [Ratio] 28.28 kg/m2 Eboni Xavier [facility], Inc.; [facility] 12-26-2020 08:27-0400 Body surface area Derived from formula 1.58 m2 Eboni Xavier [facility], Inc.; [employer] 12-26-2020 08:27-0400 Body temperature 97.8 [degF] KathyRenetta Xavier [facility] [employer] [facility].; [employer] 12-26-2020 08:27-0400 Body weight 63.5 kg Eboni Xavier [facility] [employer] [facility], [facility].; [facility] [employer] 12-26-2020 08:27-0400 Diastolic blood pressure 70 mm[Hg] Eboni Xavier [facility] [employer] [facility], Inc.; [employer] 12-26-2020 08:27-0400 Heart rate 80 /min Eboni Xavier [employer] [facility], [facility].; [employer] [facility] 12-26-2020 08:27-0400 Inhaled oxygen concentration 20 % Eboni Xavier LPN [facility], [facility].; [employer]. 12-26-2020 08:27-0400 Inhaled oxygen concentration 21 % Eboni Xavier [employer] [facility], [place].; [employer]. 12-26-2020 08:27-0400 SaO2% (BldA) [Mass fraction] 97 % Eboni Xavier [employer] [facility].; [employer]. 12-26-2020 08:27-0400 Systolic blood pressure 115 mm[Hg] Eboni Xavier [employer] [facility].; [employer]. 11-13-2020 07:48-0400 Body temperature 98.2 [degF] Zulma Mujica MD Work Phone: [employer] Work Phone: 11-13-2020 07:48-0400 Diastolic blood pressure 67 mm[Hg] Zulma Mujica MD Work Phone: [employer] Work Phone: 11-13-2020 07:48-0400 Heart rate 110 /min Zulma Mujica MD Work Phone: [employer] Work Phone: 11-13-2020 07:48-0400 Respiratory rate 18 /min Zulma Mujica MD Work Phone: [employer] Work Phone: 11-13-2020 07:48-0400 SaO2% (BldA) [Mass fraction] 95 % Zulma Mujica MD Work Phone: [employer] Work Phone: 11-13-2020 07:48-0400 Systolic blood pressure 155 mm[Hg] Zulma Mujica MD Work Phone: [facility] Work Phone: 11-13-2020 06:58-0400 Body mass index (BMI) [Ratio] 28.36 kg/m2 Zulma Mujica MD Work Phone: [employer] Work Phone: 11-13-2020 06:58-0400 Body weight 65.86 kg Zulma Mujica MD Work Phone: [employer] Work Phone: 11-09-2020 09:29-0400 Body height 152.4 cm Zulma Mujica MD Work Phone: [employer] Work Phone: 10-18-2020 08:34-0400 Body height 149.86 cm Pascale Brar LPN [facility], [facility].; [employer], [facility]. 10-18-2020 08:34-0400 Body mass index (BMI) [Ratio] 28.48 kg/m2 Pascale Brar LPN [facility], [facility].; [employer], [facility]. 10-18-2020 08:34-0400 Body surface area Derived from formula 1.59 m2 Pascale Brar LPN [place] [employer] [facility], [facility].; [employer], [facility]. 10-18-2020 08:34-0400 Body weight 63.96 kg Pascale Brar LPN [place] [employer] [facility], [facility].; [employer], [facility]. 10-18-2020 08:34-0400 Diastolic blood pressure 65 mm[Hg] Pascale Brar LPN [place] [employer] [facility], [facility].; [employer] [facility]. 10-18-2020 08:34-0400 Heart rate 77 /min Pascale Brar LPN [place] [employer] [facility], [facility].; [employer] [facility]. 10-18-2020 08:34-0400 Systolic blood pressure 116 mm[Hg] Pascale Brar LPN [place] [employer] [facility], [facility].; [facility], [facility]. 10-05-2020 11:18-0400 Body height 149.86 cm Liss Michelle LPN [facility], [facility].; [employer] [facility]. 10-05-2020 11:18-0400 Body mass index (BMI) [Ratio] 29.49 kg/m2 Liss Michelle LPN [facility], [facility].; [facility] [employer] [facility], [facility]. 10-05-2020 11:18-0400 Body surface area Derived from formula 1.61 m2 Liss Michelle LPN [facility], [facility].; [facility] 10-05-2020 11:18-0400 Body weight 66.23 kg Liss Michelle LPN [facility], [facility].; [facility] [employer] [facility], [facility]. 10-05-2020 11:18-0400 Diastolic blood pressure 60 mm[Hg] Liss Michelle LPN [facility], [facility].; [place] [employer] [facility], [facility]. 10-05-2020 11:18-0400 Heart rate 72 /min Liss Michelle LPN [facility], [facility].; [facility] [employer] [facility], [facility]. 10-05-2020 11:18-0400 Systolic blood pressure 105 mm[Hg] Liss Michelle LPN [facility], [facility].; [facility] [employer] [facility], [facility]. 08-17-2020 10:40-0400 Body height 149.86 cm Liss Michelle LPN [facility], [facility].; [facility] [employer] [facility], [facility]. 08-17-2020 10:40-0400 Body mass index (BMI) [Ratio] 29.08 kg/m2 Liss Michelle LPN [facility], [facility].; [employer], [facility]. 08-17-2020 10:40-0400 Body surface area Derived from formula 1.6 m2 Liss Michelle LPN [facility], [facility].; [employer], [facility]. 08-17-2020 10:40-0400 Body weight 65.32 kg Liss Michelle LPN [place] [employer] [facility], [facility].; [employer], [facility]. 08-17-2020 10:40-0400 Diastolic blood pressure 73 mm[Hg] Liss Michelle LPN [place] [employer] [facility].; [employer] 08-17-2020 10:40-0400 Heart rate 71 /min Liss Michelle LPN [place] [employer] [facility], [facility].; [employer], [facility]. 08-17-2020 10:40-0400 Systolic blood pressure 122 mm[Hg] Liss Michelle LPN [facility], [facility].; [place] [employer] [facility]. 08-01-2020 14:51-0400 Body height 149.86 cm Liss Michelle LPN [facility], [facility].; [place] [employer] [facility], [facility]. 08-01-2020 14:51-0400 Body mass index (BMI) [Ratio] 29.49 kg/m2 Liss Michelle [facility], [facility].; [place] [employer] [facility], [facility]. 08-01-2020 14:51-0400 Body surface area Derived from formula 1.61 m2 Liss Michelle [facility], [facility].; [place] [employer] [facility], [facility]. 08-01-2020 14:51-0400 Body weight 66.23 kg Liss Michelle LPN [facility] [place] [employer] [facility], [facility]. 08-01-2020 14:51-0400 Diastolic blood pressure 71 mm[Hg] Liss Michelle [facility], [facility].; [place] [employer] [facility], [facility]. 08-01-2020 14:51-0400 Heart rate 66 /min Liss Michelle [facility] [place] [employer] [facility], [facility]. 08-01-2020 14:51-0400 Systolic blood pressure 174 mm[Hg] Liss Michelle LPN [facility], [facility].; [place] [employer] [facility], [facility]. 07-25-2020 15:37-0400 Body height 149.86 cm Pascale Brar [facility], [facility].; [place] [employer] [facility], [facility]. 07-25-2020 15:37-0400 Body mass index (BMI) [Ratio] 29.08 kg/m2 [facility], [facility].; [employer], [facility]. 07-25-2020 15:37-0400 Body surface area Derived from formula 1.6 m2 Pascale Brar [employer] [facility], [facility].; [employer], [facility]. 07-25-2020 15:37-0400 Body weight 65.32 kg [facility]ascale [facility], [facility].; [employer], [facility]. 07-25-2020 15:37-0400 Diastolic blood pressure 88 mm[Hg] Pascale Brar LPN [facility].; [employer] [facility]. 07-25-2020 15:37-0400 Heart rate 73 /min Pascale Brar LPN [place] [employer] [facility].; [employer] [employer] 07-25-2020 15:37-0400 Systolic blood pressure 208 mm[Hg] Pascale Brar LPN [place] [employer] [facility].; [employer] [facility]. 07-11-2020 11:04-0500 Body height 152.4 cm Jimmy Castaneda MD Work Phone: [employer] [facility].; [employer] [facility]. 07-11-2020 11:04-0500 Body mass index (BMI) [Ratio] 28.71 kg/m2 Jimmy Castaneda MD Work Phone: [employer] [facility].; [employer] [facility]. 07-11-2020 11:04-0500 Body surface area Derived from formula 1.64 m2 Jimmy Castaneda MD Work Phone: [employer] [facility].; [employer]. 07-11-2020 11:04-0500 Body weight 66.68 kg Jimmy Castaneda MD Work Phone: [employer].; [employer]. 07-11-2020 11:04-0500 Diastolic blood pressure 80 mm[Hg] Jimmy Castaneda MD Work Phone: [employer].; [employer]. 07-11-2020 11:04-0500 Heart rate 60 /min Jimmy Castaneda MD Work Phone: [employer].; [employer]. 07-11-2020 11:04-0500 Systolic blood pressure 212 mm[Hg] Jimmy Castaneda MD Work Phone: [employer]. 04-11-2020 10:01-0500 Body height 152.4 cm Jimmy Castaneda MD Work Phone: [employer]. 04-11-2020 10:01-0500 Body mass index (BMI) [Ratio] 26.37 kg/m2 Jimmy Castaneda MD Work Phone: [employer]. 04-11-2020 10:01-0500 Body surface area Derived from formula 1.58 m2 Jimmy Castaneda MD Work Phone: [employer].; [employer]. 04-11-2020 10:01-0500 Body weight 61.24 kg Jimmy Castaneda MD Work Phone: [employer]. 04-11-2020 10:01-0500 Diastolic blood pressure 70 mm[Hg] Jimmy Castaneda MD Work Phone: [employer]. 04-11-2020 10:01-0500 Heart rate 62 /min Jimmy Castaneda MD Work Phone: [employer]. 04-11-2020 10:01-0500 Systolic blood pressure 166 mm[Hg] Jimmy Castaneda MD Work Phone: [employer]. 12-07-2019 13:10-0400 Body height 152.4 cm Jimmy Castaneda MD Work Phone: [employer]. 12-07-2019 13:10-0400 Body mass index (BMI) [Ratio] 27.34 kg/m2 Jimmy Castaneda MD Work Phone: [employer]. 12-07-2019 13:10-0400 Body surface area Derived from formula 1.6 m2 Jimmy Castaneda MD Work Phone: [employer]. 12-07-2019 13:10-0400 Body weight 63.5 kg Jimmy Castaneda MD Work Phone: [employer].; [employer]. 12-07-2019 13:10-0400 Diastolic blood pressure 80 mm[Hg] Jimmy Castaneda MD Work Phone: [facility].; [employer] [employer] 12-07-2019 13:10-0400 Heart rate 74 /min Jimmy Castaneda MD Work Phone: [facility] [employer] [employer] 12-07-2019 13:10-0400 Systolic blood pressure 164 mm[Hg] Jimmy Castaneda MD Work Phone: [facility].; [employer] 05-20-2019 10:44-0500 Body height 152.4 cm Liss Michelle LPN [facility].; [place] [employer] 05-20-2019 10:44-0500 Body mass index (BMI) [Ratio] 24.61 kg/m2 Liss Michelle LPN [facility], [facility].; [place] [employer] 05-20-2019 10:44-0500 Body surface area Derived from formula 1.53 m2 Liss Michelle LPN [facility].; [employer] 05-20-2019 10:44-0500 Body temperature 98.1 [degF] Liss Michelle LPN [facility], [facility].; [employer] 05-20-2019 10:44-0500 Body weight 57.15 kg Liss Michelle LPN [facility] [facility].; [employer] [facility] 05-20-2019 10:44-0500 Diastolic blood pressure 91 mm[Hg] [facility]iss [facility].; [employer] 05-20-2019 10:44-0500 Heart rate 83 /min Liss [facility]PN [facility].; [employer] 05-20-2019 10:44-0500 Inhaled oxygen concentration 20 % Liss Michelle LPN [facility], [facility].; [employer] 05-20-2019 10:44-0500 Inhaled oxygen concentration 21 % Liss [facility]PN [facility].; [employer] 05-20-2019 10:44-0500 SaO2% (BldA) [Mass fraction] 97 % Liss Michelle LPN [employer]. 05-20-2019 10:44-0500 Systolic blood pressure 171 mm[Hg] Liss Michelle LPN [employer].; [employer] 03-16-2019 13:28-0500 Body height 152.4 cm Nenita Galindo RN [employer] 03-16-2019 13:28-0500 Body mass index (BMI) [Ratio] 25.19 kg/m2 Nenita Galindo RN [employer].; [employer]. 03-16-2019 13:28-0500 Body surface area Derived from formula 1.55 m2 Nenita Galindo RN [employer].; [employer]. 03-16-2019 13:28-0500 Body weight 58.51 kg Nenita Galindo RN [employer].; [employer]. 03-16-2019 13:28-0500 Diastolic blood pressure 83 mm[Hg] Nenita Galindo RN [employer].; [employer]. 03-16-2019 13:28-0500 Heart rate 86 /min Nenita Galindo RN [employer].; [employer]. 03-16-2019 13:28-0500 Systolic blood pressure 165 mm[Hg] Nenita Galindo RN [employer]. 01-12-2019 10:35-0400 Body height 152.4 cm Liss Michelle LPN [employer].; [employer]. 01-12-2019 10:35-0400 Body mass index (BMI) [Ratio] 25 kg/m2 Liss Michelle LPN [employer]. 01-12-2019 10:35-0400 Body surface area Derived from formula 1.54 m2 Liss Michelle LPN [employer].; [employer]. 01-12-2019 10:35-0400 Body temperature 97.6 [degF] Liss Michelle LPN [employer] 01-12-2019 10:35-0400 Body weight 58.06 kg Liss Michelle LPN [employer] [employer].; [employer] 01-12-2019 10:35-0400 Diastolic blood pressure 63 mm[Hg] Liss Michelle LPN [employer] [employer] 01-12-2019 10:35-0400 Heart rate 64 /min Liss Michelle LPN [employer] [employer].; [employer] 01-12-2019 10:35-0400 Systolic blood pressure 149 mm[Hg] Liss Michelle LPN [employer] [employer].; [employer] 11-27-2018 14:49-0400 Body height 152.4 cm Liss Michelle LPN [employer] [employer].; [employer] 11-27-2018 14:49-0400 Body mass index (BMI) [Ratio] 25.97 kg/m2 Liss Michelle LPN [employer] [employer].; [employer] 11-27-2018 14:49-0400 Body surface area Derived from formula 1.57 m2 Liss Michelle LPN [employer] [employer].; [employer] 11-27-2018 14:49-0400 Body temperature 98.8 [degF] Liss Michelle LPN [employer] 11-27-2018 14:49-0400 Body weight 60.33 kg Liss Michelle LPN [employer], [employer].; [employer]. 11-27-2018 14:49-0400 Diastolic blood pressure 77 mm[Hg] Liss Michelle LPN [employer] [employer].; [employer] 11-27-2018 14:49-0400 Heart rate 81 /min Liss Michelle LPN [employer]. 11-27-2018 14:49-0400 Systolic blood pressure 138 mm[Hg] Liss Michelle [employer] WR[employer] [facility] [employer], [place] 11-02-2018 14:43-0400 Body height 152.4 cm Eboni Xavier [facility] [employer] [facility].; [employer], [place] 11-02-2018 14:43-0400 Body mass index (BMI) [Ratio] 26.37 kg/m2 Kathy Duc [facility] [employer]. 11-02-2018 14:43-0400 Body surface area Derived from formula 1.58 m2 Eboni Xavier [place] [facility] [employer] [employer]. 11-02-2018 14:43-0400 Body temperature 98.4 [degF] KathyRenetta Xavier [place] [facility] [employer] [employer]. 11-02-2018 14:43-0400 Body weight 61.24 kg Eboni Xavier [place] [facility] [employer] [employer]. 11-02-2018 14:43-0400 Diastolic blood pressure 81 mm[Hg] Eboni Xavier [place] [facility] [employer] [employer]. 11-02-2018 14:43-0400 Heart rate 89 /min KathyRenetta Xavier [place] [facility] [employer]. 11-02-2018 14:43-0400 Inhaled oxygen concentration 20 % [facility] Duc [place] [facility] [employer] [employer]. 11-02-2018 14:43-0400 Inhaled oxygen concentration 21 % Kathy Stuckey [place] [facility] [employer] [employer]. 11-02-2018 14:43-0400 SaO2% (BldA) [Mass fraction] 99 % [facility] Duc [place] [facility] [employer] [employer]. 11-02-2018 14:43-0400 Systolic blood pressure 164 mm[Hg] Eboni Xavier [place] [facility] [employer] [employer]. 10-08-2018 15:31-0400 Body height 152.4 cm Liss Michelle LPN [facility], [facility].; [employer]. 10-08-2018 15:31-0400 Body mass index (BMI) [Ratio] 27.67 kg/m2 Liss Michelle LPN [facility], [facility].; [employer] 10-08-2018 15:31-0400 Body surface area Derived from formula 1.61 m2 Liss Michelle LPN [facility], [facility].; [employer] 10-08-2018 15:31-0400 Body temperature 98.9 [degF] Liss Michelle LPN [facility], [facility].; [employer] 10-08-2018 15:31-0400 Body weight 64.28 kg Liss Michelle LPN [facility], [facility].; [employer] 10-08-2018 15:31-0400 Diastolic blood pressure 99 mm[Hg] Liss Michelle LPN [facility], [facility].; [employer] 10-08-2018 15:31-0400 Heart rate 89 /min Liss Michelle LPN [facility], [facility].; [employer] 10-08-2018 15:31-0400 Inhaled oxygen concentration 20 % Liss Michelle LPN [facility], [facility].; [employer] 10-08-2018 15:31-0400 Inhaled oxygen concentration 21 % Liss Michelle LPN [facility], [facility].; [employer] 10-08-2018 15:31-0400 SaO2% (BldA) [Mass fraction] 99 % Liss Michelle LPN [facility], [facility].; [employer] [place] 10-08-2018 15:31-0400 Systolic blood pressure 173 mm[Hg] Liss Michelle LPN [employer] [facility].; [employer] 01-02-2018 09:02-0400 Body height 152.4 cm [facility], [facility].; [employer]. 01-02-2018 09:02-0400 Body mass index (BMI) [Ratio] 24.8 kg/m2 Hemanta Gogoi (scribe) [facility], [facility].; [employer] 01-02-2018 09:02-0400 Body surface area Derived from formula 1.54 m2 Hemanta Gogoi (scribe) [facility], [facility].; [employer] 01-02-2018 09:02-0400 Body weight 57.61 kg Hemanta Gogoi (scribe) [facility], [facility].; [employer] 01-02-2018 09:02-0400 Diastolic blood pressure 84 mm[Hg] Hemanta Gogoi (scribe) [facility], [facility].; [employer] 01-02-2018 09:02-0400 Heart rate 88 /min [facility] [employer] 01-02-2018 09:02-0400 Systolic blood pressure 162 mm[Hg] Hemanta Gogoi (scribe) [facility], [facility].; [employer] 10-13-2017 10:140400 Body height 152.4 cm Louiskimani Gonzalez (Scribe) [employer] [facility].; [employer] 10-13-2017 10:14-0400 Body mass index (BMI) [Ratio] 25.19 kg/m2 Louiskimani Gonzalez (Scribe) [employer] [facility].; [employer] 10-13-2017 10:140400 Body surface area Derived from formula 1.55 m2 Louis Gonzalez (Scribe) [employer] [facility].; [employer] 10-13-2017 10:14-0400 Body weight 58.51 kg Louiskimani Gonzalez (Scribe) [employer] [facility], [facility].; [employer] 10-13-2017 10:14-0400 Diastolic blood pressure 72 mm[Hg] Louis Gonzalez (Scribe) [employer] [facility].; [employer] 10-13-2017 10:14-0400 Heart rate 79 /min Louis Gonzalez (Scribe) [employer] [facility].; [employer] 10-13-2017 10:14-0400 Systolic blood pressure 170 mm[Hg] Louis Gutiérrez) [facility].; [employer] [facility]. 09-25-2017 08:12-0400 Body height 152.4 cm Nenita Galindo RN [facility].; [employer]. 09-25-2017 08:12-0400 Body mass index (BMI) [Ratio] 23.83 kg/m2 Nenita Galindo RN [employer] [facility].; [employer]. 09-25-2017 08:12-0400 Body surface area Derived from formula 1.51 m2 Nenita Galindo RN [facility].; [employer]. 09-25-2017 08:12-0400 Body temperature 96.9 [degF] Nenita Galindo RN [employer].; [employer]. 09-25-2017 08:12-0400 Body weight 55.34 kg Nenita Galindo RN [employer].; [employer]. 09-25-2017 08:12-0400 Diastolic blood pressure 79 mm[Hg] Nenita Galindo RN [facility].; [employer]. 09-25-2017 08:12-0400 Heart rate 74 /min Nenita Galindo RN [employer]. 09-25-2017 08:12-0400 Systolic blood pressure 126 mm[Hg] Nenita Galindo RN [employer]. 2017 08:45-0500 Body height 152.4 cm Emily K Mutersbaugh CHARAN [employer].; [employer]. 2017 08:45-0500 Body mass index (BMI) [Ratio] 25.78 kg/m2 Emily K Mutersbaugh CHARAN [employer]. 2017 08:45-0500 Body surface area Derived from formula 1.56 m2 Emily K Mutersbaugh CHARAN [facility], [facility].; [employer] 2017 08:45-0500 Body weight 59.88 kg Emily K Mutersbaugh GIFT WR[employer]PER [facility], [facility].; [employer], [employer] 2017 08:45-0500 Diastolic blood pressure 76 mm[Hg] Emily K Mutersbaugh G[employer] WR[employer]PER [employer] 2017 08:45-0500 Heart rate 77 /min Emily K Mutersbaugh G[employer], [employer] 2017 08:45-0500 Systolic blood pressure 163 mm[Hg] Emily K Mutersbaugh G[employer]PER [employer], [employer] 04-03-2017 08:21-0500 Body height 152.4 cm Louis Gutiérrez) [employer] [facility].; [facility], [employer] 04-03-2017 08:21-0500 Body mass index (BMI) [Ratio] 25.58 kg/m2 Louis Gutiérrez) [facility], [facility].; [employer], [place] 04-03-2017 08:21-0500 Body surface area Derived from formula 1.56 m2 Louis Gutiérrez) [employer] [facility], [facility].; [employer], [employer] 04-03-2017 08:21-0500 Body weight 59.42 kg Louis Gutiérrez) [facility] [employer], [employer] 04-03-2017 08:21-0500 Diastolic blood pressure 74 mm[Hg] Louis Gutiérrez) [facility], [facility] [employer], [place] 04-03-2017 08:21-0500 Heart rate 77 /min Louis Gutiérrez) [facility].; [facility], [employer] 04-03-2017 08:21-0500 Systolic blood pressure 184 mm[Hg] Louis Gonzalez (Stephenibe) [facility], [facility].; [employer] [place] 10-07-2016 10:37-0400 Body height 152.4 cm bEoni Xavier G[employer] WR[employer]PER [facility], [facility].; [employer]. 10-07-2016 10:37-0400 Body mass index (BMI) [Ratio] 25.39 kg/m2 [facility] Duc [facility], Inc.; [employer], [employer] 10-07-2016 10:37-0400 Body surface area Derived from formula 1.55 m2 [facility] Duc [facility], Inc.; [employer], [employer] 10-07-2016 10:37-0400 Body temperature 98.4 [degF] [facility] Duc [facility] [employer] [facility] [employer], [place] 10-07-2016 10:37-0400 Body weight 58.97 kg [facility] Duc [facility] [employer] [facility].; [employer], [place] 10-07-2016 10:37-0400 Diastolic blood pressure 75 mm[Hg] [facility] uDc [facility] [employer] [facility].; [employer], [employer] 10-07-2016 10:37-0400 Heart rate 85 /min [facility] Duc [place] [facility], [facility].; [employer], [place] 10-07-2016 10:37-0400 Inhaled oxygen concentration 20 % [facility] [place] [facility] [employer] [facility].; [employer], [employer] 10-07-2016 10:37-0400 Inhaled oxygen concentration 21 % [facility] Duc [facility] [employer] [facility].; [employer]. 10-07-2016 10:37-0400 SaO2% (BldA) [Mass fraction] 98 % [facility] Duc [place] [facility], [facility].; [employer], [place] 10-07-2016 10:37-0400 Systolic blood pressure 159 mm[Hg] [facility] Duc [facility] [employer] [facility].; [employer], [employer] 08-30-2016 08:110400 Body height 152.4 cm Landon Gutiérrez) [facility], [place].; [employer] [place] 08-30-2016 08:11-0400 Body mass index (BMI) [Ratio] 25.58 kg/m2 Landon Jaxon (Scribe) [facility] [employer] [employer] [employer] 08-30-2016 08:110400 Body surface area Derived from formula 1.56 m2 Landon Jaxon (Scribe) [employer] 08-30-2016 08:110400 Body weight 59.42 kg Landon Jaxon (Scribe) [employer] [employer] 08-30-2016 08:11-0400 Diastolic blood pressure 78 mm[Hg] Landon Jaxon (Scribe) [facility] [employer] [employer] [employer] 08-30-2016 08:11-0400 Heart rate 69 /min Landon Jaxon (Scribe) [employer] [employer] 08-30-2016 08:11-0400 Systolic blood pressure 148 mm[Hg] Landon Jaxon (Scribe) [employer] [employer] 07-24-2016 10:52-0400 Body height 152.4 cm Shonna Pandya [facility] [employer].; [employer] 07-24-2016 10:52-0400 Body mass index (BMI) [Ratio] 26.17 kg/m2 Shonna Pandya [employer] [employer] [employer] 07-24-2016 10:52-0400 Body surface area Derived from formula 1.57 m2 Shonna Pandya [employer], [employer] 07-24-2016 10:52-0400 Body weight 60.78 kg Shonna Pandya [employer] [facility] [employer].; [employer] [employer] 07-24-2016 10:52-0400 Diastolic blood pressure 76 mm[Hg] Shonna Pandya LPN [facility] [employer].; [facility] [employer] 07-24-2016 10:52-0400 Heart rate 69 /min Shonna Pandya [employer]. 07-24-2016 10:52-0400 Systolic blood pressure 185 mm[Hg] Shonna Pandya LPN [employer].; [employer]. 06-18-2016 09:36-0500 Body height 152.4 cm Jimmy Castaneda MD Work Phone: [employer]. 06-18-2016 09:36-0500 Body mass index (BMI) [Ratio] 25.97 kg/m2 Jimmy Castaneda MD Work Phone: [employer]. 06-18-2016 09:36-0500 Body surface area Derived from formula 1.57 m2 Jimmy Castaneda MD Work Phone: [employer]. 06-18-2016 09:36-0500 Body weight 60.33 kg Jimmy Castaneda MD Work Phone: [employer]. 06-18-2016 09:36-0500 Diastolic blood pressure 76 mm[Hg] Jimmy Castaneda MD Work Phone: [employer]. 06-18-2016 09:36-0500 Heart rate 75 /min Jimmy Castaneda MD Work Phone: [employer]. 06-18-2016 09:36-0500 Systolic blood pressure 192 mm[Hg] Jimmy Castaneda MD Work Phone: [employer]. 05-28-2016 08:32-0500 Body height 152.4 cm Emily Raya LPN [employer].; [employer]. 05-28-2016 08:32-0500 Body mass index (BMI) [Ratio] 26.56 kg/m2 Emily Raya LPN [employer].; [employer]. 05-28-2016 08:32-0500 Body surface area Derived from formula 1.58 m2 Emily K Mutersbaugh GIFT WR[employer]PER [employer] [facility].; [employer]. 05-28-2016 08:32-0500 Body weight 61.69 kg Emily K Mutersbaugh GIFT WRAPPER [employer] [facility].; [employer] 05-28-2016 08:32-0500 Diastolic blood pressure 77 mm[Hg] Emily K Mutersbaugh GIFT WR[employer]PER [employer]. 05-28-2016 08:32-0500 Heart rate 67 /min Emily K Mutersbaugh G[employer] WR[employer]. 05-28-2016 08:32-0500 Systolic blood pressure 174 mm[Hg] Emily K Mutersbaugh G[employer]. 01-30-2016 09:10-0400 Body height 152.4 cm Jimmy Castaneda MD Work Phone: [employer]. 01-30-2016 09:10-0400 Body mass index (BMI) [Ratio] 26.37 kg/m2 Jimmy Castaneda MD Work Phone: [employer]. 01-30-2016 09:10-0400 Body surface area Derived from formula 1.58 m2 Jimmy Castaneda MD Work Phone: [employer]. 01-30-2016 09:10-0400 Body weight 61.24 kg Jimmy Castaneda MD Work Phone: [employer]. 01-30-2016 09:10-0400 Diastolic blood pressure 94 mm[Hg] Jimmy Castaneda MD Work Phone: [employer]. 01-30-2016 09:10-0400 Heart rate 86 /min Jimmy Castaneda MD Work Phone: [employer]. 01-30-2016 09:10-0400 Systolic blood pressure 186 mm[Hg] Jimmy Castaneda MD Work Phone: [employer].; [employer]. 05-19-2015 10:34-0500 Body height 152.4 cm Aga Herman [facility] [place]. 05-19-2015 10:34-0500 Body mass index (BMI) [Ratio] 26.95 kg/m2 Agamagui Herman [place] [facility] [employer].; [employer]. 05-19-2015 10:34-0500 Body surface area Derived from formula 1.59 m2 Aga Herman [place] [facility] [employer].; [employer]. 05-19-2015 10:34-0500 Body weight 62.6 kg Aga Herman [place] [facility] [employer]. 05-19-2015 10:34-0500 Diastolic blood pressure 84 mm[Hg] Aga Herman [place] [facility] [employer]. 05-19-2015 10:34-0500 Heart rate 92 /min Aga Herman [place] [facility] [place]. 05-19-2015 10:34-0500 Systolic blood pressure 151 mm[Hg] Aga Herman [place] [facility] [employer], [place]. 03-31-2015 11:31-0500 Body height 152.4 cm Emily K Mutersbabeth [place] [facility] [employer], [place]. 03-31-2015 11:31-0500 Body mass index (BMI) [Ratio] 28.12 kg/m2 Emily K Mutersbaugh [place] [facility] [place]. 03-31-2015 11:31-0500 Body surface area Derived from formula 1.62 m2 Emily K Mutersbaugh [place] [facility] [place]. 03-31-2015 11:31-0500 Body temperature 99.3 [degF] Emily K Mutersbaugh GIFT WR[employer]PER [employer] [facility].; [employer] [facility]. 03-31-2015 11:31-0500 Body weight 65.32 kg Emily K Mutersbaugh GIFT WR[employer]PER [employer] [facility].; [employer] 03-31-2015 11:31-0500 Diastolic blood pressure 96 mm[Hg] Emily K Mutersbaugh GIFT WR[employer]PER [employer] [facility].; [employer] [facility]. 03-31-2015 11:31-0500 Heart rate 89 /min Emily K Mutersbaugh GIFT WR[employer]PER [employer] [facility].; [employer]. 03-31-2015 11:31-0500 Systolic blood pressure 189 mm[Hg] Emily K Mutersbaugh GIFT WR[employer]PER [employer] [facility].; [employer]. 01-12-2015 08:30-0400 Body height 152.4 cm Jimmy Castaneda MD Work Phone: [employer] [facility].; [employer]. 01-12-2015 08:30-0400 Body mass index (BMI) [Ratio] 28.32 kg/m2 Jimmy Castaneda MD Work Phone: [employer]. 01-12-2015 08:30-0400 Body surface area Derived from formula 1.63 m2 Jimmy Castaneda MD Work Phone: [employer]. 01-12-2015 08:30-0400 Body weight 65.77 kg Jimmy Castaneda MD Work Phone: [employer]. 01-12-2015 08:30-0400 Diastolic blood pressure 64 mm[Hg] Jimmy Castaneda MD Work Phone: [employer]. 01-12-2015 08:30-0400 Heart rate 79 /min Jimmy Castaneda MD Work Phone: [employer]. 01-12-2015 08:30-0400 Systolic blood pressure 150 mm[Hg] Jimmy Castaneda MD Work Phone: [employer].; [employer]. 08-26-2014 09:31-0400 Body weight 66.23 kg Jimmy Castaneda MD Work Phone: [employer]. 08-26-2014 09:31-0400 Diastolic blood pressure 48 mm[Hg] Jimmy Castaneda MD Work Phone: [employer]. 08-26-2014 09:31-0400 Heart rate 68 /min Jimmy Castaneda MD Work Phone: [employer]. 08-26-2014 09:31-0400 Systolic blood pressure 104 mm[Hg] Jimmy Castaneda MD Work Phone: [employer]. 08-26-2014 09:19-0400 Body height 152.4 cm Nenita Galindo RN [employer] [facility].; [employer]. 05-19-2014 14:49-0500 Body height 152.4 cm Lucille Salcedo LPN [facility], [facility].; [facility] [place] 05-19-2014 14:49-0500 Body mass index (BMI) [Ratio] 27.73 kg/m2 Lucille Salcedo LPN [employer] [facility].; [employer]. 05-19-2014 14:49-0500 Body surface area Derived from formula 1.61 m2 Lucille Salcedo LPN [employer] [facility].; [employer]. 05-19-2014 14:49-0500 Body temperature 97.7 [degF] Lucille Salcedo LPN [employer] [facility], [facility].; [employer] [place] 05-19-2014 14:49-0500 Body weight 64.41 kg Lucille Salcedo LPN [employer] [facility], [facility].; [employer]. 05-19-2014 14:49-0500 Diastolic blood pressure 78 mm[Hg] Lucille Salcedo LPN [facility], [facility].; [employer] [place] 05-19-2014 14:49-0500 Heart rate 96 /min Sturgisteo Salcedo [facility], [facility].; [employer] 05-19-2014 14:49-0500 Inhaled oxygen concentration 20 % Lucilleteo Salcedo [facility], Inc.; [employer], [place] 05-19-2014 14:49-0500 Inhaled oxygen concentration 21 % Lucilleteo Salcedo [facility] [employer] [facility], [facility].; [employer], [place] 05-19-2014 14:49-0500 SaO2% (BldA) [Mass fraction] 98 % Sturgisteo Salcedo [facility], Inc.; [employer], [place] 05-19-2014 14:49-0500 Systolic blood pressure 157 mm[Hg] Lucille Salcedo LPN [facility] [employer] [facility].; [employer]. 02-28-2014 08:46-0400 Body height 152.4 cm Lucilleteo Salcedo [facility] [employer] [facility], [facility].; [employer], [place] 02-28-2014 08:46-0400 Body mass index (BMI) [Ratio] 27.15 kg/m2 Sturgis Matias [facility] [employer] [facility], [place].; [employer] [place] 02-28-2014 08:46-0400 Body surface area Derived from formula 1.6 m2 Sturgis Matias [facility] [employer] [facility], [facility].; [employer]. 02-28-2014 08:46-0400 Body weight 63.05 kg Sturgisteo Salcedo [facility] [employer] [facility], [facility].; [employer]. 02-28-2014 08:46-0400 Diastolic blood pressure 76 mm[Hg] Lucille Salcedo [facility] [employer] [facility], [place] [employer]. 02-28-2014 08:46-0400 Heart rate 80 /min Sturgisteo Salcedo LPN [facility] [employer] [facility], [facility].; [employer]. 02-28-2014 08:46-0400 Systolic blood pressure 158 mm[Hg] Sturgisteo Salcedo G[employer] WR[employer].; [employer]. 01-27-2014 08:50-0400 Body height 152.4 cm Eboni Xavier [place] [facility].; [employer]. 01-27-2014 08:50-0400 Body mass index (BMI) [Ratio] 27.54 kg/m2 Eboni Xavier [facility] [employer] [facility], [facility].; [facility] [employer] 01-27-2014 08:50-0400 Body surface area Derived from formula 1.61 m2 Eboni Xavier [place] [facility] [facility] [employer]. 01-27-2014 08:50-0400 Body weight 63.96 kg Eboni Xavier [place] [facility] [employer]. 01-27-2014 08:50-0400 Diastolic blood pressure 94 mm[Hg] Eboni Xavier [place] [facility] [employer]. 01-27-2014 08:50-0400 Heart rate 69 /min Eboni Xavier [place] [facility] [employer]. 01-27-2014 08:50-0400 Systolic blood pressure 204 mm[Hg] Eboni Xavier [place] [facility] [employer]. 04-30-2013 10:18-0500 Body height 152.4 cm Shonna Pandya [place] [facility] [employer]. 04-30-2013 10:18-0500 Body mass index (BMI) [Ratio] 27.15 kg/m2 Shonna Pandya [place] [employer]. 04-30-2013 10:18-0500 Body surface area Derived from formula 1.6 m2 Shonna Pandya [place] [employer], [place]. 04-30-2013 10:18-0500 Body temperature 98.5 [degF] Shonna Pandya [place] [facility] [employer]. 04-30-2013 10:18-0500 Body weight 63.05 kg Shonna Pandya [place] [employer].; [facility], [facility]. 04-30-2013 10:18-0500 Diastolic blood pressure 93 mm[Hg] Shonna Ismael Pandya LPN [facility], [facility].; [employer] 04-30-2013 10:18-0500 Heart rate 73 /min Shonna Pandya LPN [facility], [facility].; [employer] 04-30-2013 10:18-0500 Systolic blood pressure 183 mm[Hg] Shonna Pandya LPN [employer] [facility], [employer] 02-02-2013 17:45-0400 Body height 152.4 cm Aga Herman LPN [facility] [employer] 02-02-2013 17:45-0400 Body mass index (BMI) [Ratio] 26.17 kg/m2 Aga Herman LPN [facility] [employer] [employer] 02-02-2013 17:45-0400 Body surface area Derived from formula 1.57 m2 Aga Herman LPN [facility] [employer], [place]. 02-02-2013 17:45-0400 Body weight 60.78 kg Aga Herman LPN [facility] [employer] 02-02-2013 17:45-0400 Diastolic blood pressure 84 mm[Hg] Aga Herman LPN [facility] [employer] [employer], [facility]. 02-02-2013 17:45-0400 Heart rate 80 /min Aga Herman LPN [facility], [place]. 02-02-2013 17:45-0400 Systolic blood pressure 185 mm[Hg] Aga Herman LPN [facility], [place]. 12-15-2012 16:36-0400 Body height 152.4 cm Aga Herman LPN [facility], [place]. 12-15-2012 16:36-0400 Body mass index (BMI) [Ratio] 26.95 kg/m2 Aga Herman LPN [facility], [facility].; [employer] [facility], [facility]. 12-15-2012 16:36-0400 Body surface area Derived from formula 1.59 m2 Aga Herman LPN [facility], [facility].; [facility], [facility]. 12-15-2012 16:36-0400 Body weight 62.6 kg Aga Herman [employer] [facility], [facility].; [facility], [facility]. 12-15-2012 16:36-0400 Diastolic blood pressure 77 mm[Hg] Aga Herman LPN [facility], [facility].; [facility], [facility]. 12-15-2012 16:36-0400 Heart rate 67 /min Aga Herman LPN [facility] [employer].; [employer], [facility]. 12-15-2012 16:36-0400 Systolic blood pressure 165 mm[Hg] Aga Herman LPN [employer] [facility].; [employer], [facility]. 07-31-2012 08:50-0400 Body height 152.4 cm Ana Benjamin [facility] [employer], [facility].; [facility], [facility]. 07-31-2012 08:50-0400 Body mass index (BMI) [Ratio] 27.54 kg/m2 Ana Luis Grert [facility] [employer], [place]. 07-31-2012 08:50-0400 Body surface area Derived from formula 1.61 m2 Ana Benjamin [facility] [employer] [facility].; [employer], [facility]. 07-31-2012 08:50-0400 Body weight 63.96 kg Ana Benjamin [employer] WR[employer] [facility], [facility].; [facility], [place]. 07-31-2012 08:50-0400 Diastolic blood pressure 74 mm[Hg] Ana L Simónert [employer] WR[employer] [facility] [employer], [place]. 07-31-2012 08:50-0400 Heart rate 68 /min Ana L Simónert [employer] [facility] [employer], [place] 07-31-2012 08:50-0400 Systolic blood pressure 144 mm[Hg] Ana L Richert [facility], [facility].; [facility]. 12-31-2011 08:15-0400 Body height 152.4 cm Ana Luis Grert [facility], [facility].; [facility] [employer] [facility]. 12-31-2011 08:15-0400 Body mass index (BMI) [Ratio] 26.66 kg/m2 Ana L Richert [facility], [facility].; [facility] [employer], [facility]. 12-31-2011 08:15-0400 Body surface area Derived from formula 1.59 m2 Ana L Richert [employer] [facility], [facility].; [facility] [employer], [facility]. 12-31-2011 08:15-0400 Body weight 61.92 kg Ana L Richert [facility] [employer], [facility].; [employer], [facility]. 12-31-2011 08:15-0400 Diastolic blood pressure 83 mm[Hg] Ana L Simónert [facility], [facility].; [facility] [employer] [facility]. 12-31-2011 08:15-0400 Heart rate 70 /min Ana L Simónert [facility], [facility].; [facility]. 12-31-2011 08:15-0400 Systolic blood pressure 160 mm[Hg] Ana L Richert [employer] [facility] [employer], [facility].; [facility], [facility]. 12-03-2011 08:00-0400 Body height 152.4 cm Ana L Simónert [facility] [employer], [facility].; [employer]. 12-03-2011 08:00-0400 Body mass index (BMI) [Ratio] 27.15 kg/m2 Ana L Richert [employer] [facility] [employer], [facility].; [employer]. 12-03-2011 08:00-0400 Body surface area Derived from formula 1.6 m2 Ana L Richert [employer] [facility] [employer], [facility].; [employer] [facility]. 12-03-2011 08:00-0400 Body weight 63.05 kg Ana L Richert [employer], [facility].; [employer]. 12-03-2011 08:00-0400 Diastolic blood pressure 84 mm[Hg] [facility] L [facility] [employer], [facility]. 12-03-2011 08:00-0400 Heart rate 68 /min Ana Luis Grert [employer] [facility].; [facility] [employer], [facility]. 12-03-2011 08:00-0400 Systolic blood pressure 171 mm[Hg] Ana L Richert [employer] [facility], [facility].; [employer] 03-20-2011 15:20-0500 Body height 152.4 cm Ana L Richert [facility], Inc.; [employer], [facility]. 03-20-2011 15:20-0500 Body mass index (BMI) [Ratio] 25.47 kg/m2 Ana L Richert [facility], Inc.; [employer] 03-20-2011 15:20-0500 Body surface area Derived from formula 1.56 m2 Ana L [facility], [facility].; [employer], [facility]. 03-20-2011 15:20-0500 Body weight 59.15 kg Ana L Simónert [employer] [facility], [facility].; [employer], [facility]. 03-20-2011 15:20-0500 Diastolic blood pressure 87 mm[Hg] Ana L Richert [facility] [employer], [facility]. 03-20-2011 15:20-0500 Heart rate 105 /min Ana L Richert [facility] [employer].; [employer], [facility]. 03-20-2011 15:20-0500 Systolic blood pressure 160 mm[Hg] Ana L Richert [employer] [facility], [facility].; [facility] [employer], [facility]. 09-20-2010 14:25-0400 Body height 152.4 cm Tonya C [place] [facility] [employer], [facility].; [employer], [facility]. 09-20-2010 14:25-0400 Body mass index (BMI) [Ratio] 27.58 kg/m2 Tonya C [place] [employer] [facility] [employer].; [employer] 09-20-2010 14:25-0400 Body surface area Derived from formula 1.61 m2 Tonya C Laurent [employer] [facility], [facility].; [employer] [facility]. 09-20-2010 14:25-0400 Body weight 64.05 kg Tonya C Laurent [employer] [facility], [facility].; [employer], [facility]. 09-20-2010 14:25-0400 Diastolic blood pressure 84 mm[Hg] Tonya C [place] [employer] [facility].; [employer] 09-20-2010 14:25-0400 Heart rate 91 /min Tonya C Laurent [employer] [place] [employer].; [employer], [facility]. 09-20-2010 14:25-0400 Systolic blood pressure 175 mm[Hg] Tonya C [place] [employer] [facility] [employer] 09-11-2010 14:37-0400 Body height 152.4 cm Tonya C [place] [employer] [facility] [employer].; [facility], [place] 09-11-2010 14:37-0400 Body mass index (BMI) [Ratio] 27.15 kg/m2 Tonya C Laurent [employer] [facility] [employer], [facility].; [employer], [place]. 09-11-2010 14:37-0400 Body surface area Derived from formula 1.6 m2 Tonya C [place] [employer] [facility], [facility].; [employer], [place]. 09-11-2010 14:37-0400 Body weight 63.05 kg Tonya C [place] [employer] [facility], [facility].; [employer], [place]. 09-11-2010 14:37-0400 Diastolic blood pressure 99 mm[Hg] Tonya C [place] [employer] [facility] [employer], [facility].; [employer], [facility]. 09-11-2010 14:37-0400 Heart rate 97 /min Tonya C [place] [employer] [facility].; [employer], [place]. 09-11-2010 14:37-0400 Systolic blood pressure 184 mm[Hg] Tonya C [place] [employer].; [facility], [place]. 07-13-2010 14:21-0500 Body height 149.86 cm Tonya C [place] [employer] [facility], [facility].; [employer]. 07-13-2010 14:21-0500 Body mass index (BMI) [Ratio] 29.85 kg/m2 Tonya C Laurent [employer] [facility].; [facility], Inc. 07-13-2010 14:21-0500 Body surface area Derived from formula 1.62 m2 Tonya C [place] [employer].; [facility], Inc. 07-13-2010 14:21-0500 Body weight 67.04 kg Tonya C Laurent [employer] [employer].; [facility], Inc. 07-13-2010 14:21-0500 Diastolic blood pressure 87 mm[Hg] Tonya C Laurent [employer].; [facility], Inc. 07-13-2010 14:21-0500 Heart rate 87 /min Tonya C [place] [employer].; [facility], Inc. 07-13-2010 14:21-0500 Systolic blood pressure 186 mm[Hg] Tonya C [place] [employer].; [facility], Inc[facility] 03-26-2010 13:03-0500 Body height 152.4 cm Tonya C [place] [employer].; [facility], [place] 03-26-2010 13:03-0500 Body mass index (BMI) [Ratio] 31.48 kg/m2 Tonya C Laurent [employer].; [facility], Inc. 03-26-2010 13:03-0500 Body surface area Derived from formula 1.7 m2 Tonya C [place] [employer].; [facility], Inc. 03-26-2010 13:03-0500 Body weight 73.12 kg Tonya C [place] [employer].; [facility], [place] 03-26-2010 13:03-0500 Diastolic blood pressure 82 mm[Hg] Tonya C [place] [employer].; [facility], Inc. 03-26-2010 13:03-0500 Heart rate 95 /min Tonya C [place] [employer]. 03-26-2010 13:03-0500 Systolic blood pressure 180 mm[Hg] Tonya C [place] [employer] [facility], [facility].; [facility], [facility]. 02-26-2010 14:47-0400 Body height 152.4 cm Tonya C Laurent [facility], [facility].; [employer], [facility]. 02-26-2010 14:47-0400 Body mass index (BMI) [Ratio] 30.35 kg/m2 Tonya C [place] [facility], [facility].; [employer], [facility]. 02-26-2010 14:47-0400 Body surface area Derived from formula 1.68 m2 Tonya C [place] [facility], [facility].; [employer], [facility]. 02-26-2010 14:47-0400 Body temperature 97.3 [degF] Tonya C [place] [employer] [facility], [facility].; [employer], [facility]. 02-26-2010 14:47-0400 Body weight 70.49 kg Tonya C [place] [facility], [facility].; [employer], [facility]. 02-26-2010 14:47-0400 Diastolic blood pressure 82 mm[Hg] Tonya C [place] [facility], [facility].; [employer], [facility]. 02-26-2010 14:47-0400 Heart rate 100 /min Tonya C Laurent [facility], [facility].; [employer], [facility]. 02-26-2010 14:47-0400 Systolic blood pressure 146 mm[Hg] Tonya C Laurent [employer] [facility], [facility].; [employer], [facility]. 02-05-2010 15:01-0400 Body temperature 97.3 [degF] Ana L Richert [facility], [facility].; [employer], [facility]. 02-05-2010 15:01-0400 Body weight 72.58 kg Ana L Richert [facility], Inc.; [employer] 02-05-2010 15:01-0400 Diastolic blood pressure 93 mm[Hg] Ana L Richert [facility], Inc.; [employer], [facility]. 02-05-2010 15:01-0400 Heart rate 111 /min Ana Benjamin LPN [facility], Inc.; [employer] 02-05-2010 15:010400 Systolic blood pressure 186 mm[Hg] Ana Benjamin LPN [employer] Encounters Encounter Date Encounter Type Care Provider Facility Start: 12-02-2024 ambulatory Chadd Walton Facility:[facility] Start: 05-30-2024 End: 05-31-2024 ambulatory Chadd Walton Facility:[facility] Start: 01-20-2024 ambulatory Varsha Sales Facility:[facility] Start: 01-20-2024 End: 01-24-2024 Evaluation and management of inpatient Varsha Sales Facility:[facility] Start: 01-13-2024 End: 01-13-2024 ambulatory Chadd Walton Facility:[facility] Start: 12-22-2023 ambulatory Danny Cartagena NP [facility] Start: 08-28-2023 End: 08-28-2023 Elroy Weiss MD Work Phone: [employer]. Start: 08-20-2023 End: 08-20-2023 ambulatory [facility] Work Phone: Start: 08-20-2023 End: 08-20-2023 Patient encounter procedure [facility] Work Phone: Start: 08-18-2023 End: 08-18-2023 Emergency department patient visit [facility] Work Phone: Start: 08-12-2023 End: 08-12-2023 Elroy Weiss MD Work Phone: [employer] Start: 07-22-2023 End: 07-22-2023 Office outpatient visit 15 minutes Elroy Weiss MD Work Phone: [employer]. Start: 07-18-2023 End: 07-18-2023 Elroy Weiss MD Work Phone: [employer]. Start: 07-18-2023 Elroy Weiss MD Work Phone: [employer] Start: 07-17-2023 End: 07-17-2023 Emergency department patient visit [facility] Work Phone: Start: 06-23-2023 End: 06-23-2023 Elroy Weiss MD Work Phone: [employer] Start: 04-14-2023 End: 04-14-2023 Elroy Weiss MD Work Phone: [employer]. Start: 02-17-2023 End: 02-17-2023 Elroy Weiss MD Work Phone: [employer]. Start: 02-03-2023 End: 02-03-2023 Elroy Weiss MD Work Phone: [employer] Start: 01-23-2023 End: 01-23-2023 ambulatory ELROY WEISS [facility] Start: 01-23-2023 End: 01-23-2023 Elroy Weiss MD Work Phone: [employer] Start: 01-20-2023 End: 01-20-2023 Office outpatient visit 15 minutes Elroy Weiss MD Work Phone: [employer] Start: 12-24-2022 End: 12-24-2022 Elroy Weiss MD Work Phone: [employer] Start: 12-18-2022 End: 12-18-2022 Patient encounter status Elroy Weiss MD Work Phone: [employer]; [employer]. Start: 12-18-2022 End: 12-18-2022 Periodic preventive med est patient 65yrs& older Elroy Weiss MD Work Phone: [employer]. Start: 12-09-2022 End: 12-09-2022 Elroy Weiss MD Work Phone: [employer] Start: 11-22-2022 End: 11-22-2022 Elroy Weiss MD Work Phone: [employer] Start: 11-21-2022 End: 11-21-2022 [facility] Start: 10-29-2022 End: 10-29-2022 [facility] Weiss MD [facility] Start: 06-21-2022 Evaluation and management of inpatient JIMMY (EMILY CASTANEDA Facility:[facility] Start: 06-18-2022 ambulatory ELRYO WEISS Facility: [facility] Start: 06-18-2022 End: 06-18-2022 Office outpatient visit 25 minutes Elroy Weiss MD [facility] Start: 06-13-2022 ambulatory ELROY WEISS Facility: [facility] Start: 06-12-2022 Non-patient / Non-visit Dr. Parvez Weiss Work Phone: [facility] Start: 06-12-2022 End: 06-12-[address] Elroy Weiss Work Phone: [facility] Work Phone: Start: 06-12-2022 End: 06-12-[address] Elroy Weiss Work Phone: [facility] Start: 06-10-2022 End: 06-10-2022 [facility]roy Weiss MD [facility] Start: 06-06-[address] Lan Weiss Work Phone: [facility] Start: 06-06-2022 End: 06-06-2022 Admission to same day surgery center Dr. Elroy Weiss Work Phone: [facility] Start: 06-06-2022 End: 06-06-[address] Elroy Weiss Work Phone: [facility] Start: 06-05-2022 Encounter for other preprocedural examination YANET REED Facility:[facility] Start: 06-05-2022 ambulatory ELROY WEISS Facility: [facility] Start: 06-05-2022 ambulatory DESEAN W MILTON Brandt JR. Facility:[facility] Start: 06-05-2022 End: 06-05-2022 Patient encounter status Yanet Reed MD Work Phone: [facility] Start: 06-05-2022 End: 06-05-2022 Subsequent hospital visit by physician Yanet Reed MD Work Phone: [facility] Comment on above: Arrived Start: 06-04-2022 ambulatory JIMMY (SANJANA) CASTANEDA Faci lity:[facility] Start: 06-04-2022 End: 06-04-2022 Office outpatient visit 25 minutes Junior Santiago MD Work Phone: [facility] Comment on above: Back pain with sciat ica (Primary Dx) Start: 05-17-2022 End: 05-17-2022 Elroy Weiss MD Work Phone: [employer] Start: 05-17-2022 Refill Ronen lou [employer] - [employer]MANCE REPORTER Work Phone: [facility] Start: 05-10-2022 End: 05-10-2022 Elroy Weiss MD Work Phone: [employer] Start: 04-25-2022 End: 04-25-2022 Elroy Weiss MD Work Phone: [employer] Start: 04-23-2022 End: 04-23-2022 Emergency department patient visit [facility] Start: 04-22-2022 End: 04-22-2022 Elroy Weiss MD Work Phone: [employer] Start: 04-02-2022 End: 04-02-2022 Office outpatient visit 15 minutes Elroy Weiss MD Work Phone: [employer] Start: 02-25-2022 End: 02-25-2022 Elroy Weiss MD Work Phone: [employer] Start: 01-08-2022 ambulatory JIMMY (EMILY Mack lity:[facility] Start: 01-08-2022 End: 01-08-2022 Office outpatient visit 25 minutes Junior Santiago MD Work Phone: [facility] Comment on above: Lumbar radiculopathy (Primary Dx) Start: 11-20-2021 Patient encounter status [facility] Start: 11-08-2021 End: 11-08-2021 Patient encounter status Elroy Weiss MD Work Phone: [employer]; [employer] Start: 11-08-2021 End: 11-08-2021 Periodic preventive med est patient 65yrs& older Elroy Weiss MD Work Phone: [employer] Start: 10-26-2021 End: 10-26-2021 Elroy Weiss MD Work Phone: [employer] Start: 08-29-2021 End: 08-30-2021 Elroy Weiss MD Work Phone: [employer] Start: 08-14-2021 End: 08-14-[address] Elroy Weiss Work Phone: [facility] Start: 08-14-2021 End: 08-14-[address] Elroy Weiss Work Phone: [facility] Start: 07-10-2021 End: 07-10-2021 Elroy Weiss MD Work Phone: [employer] Start: 07-02-2021 End: 07-02-2021 Elroy Weiss MD Work Phone: [employer] Start: 06-21-2021 End: 06-21-2021 Office outpatient visit 15 minutes Elroy Weiss MD Work Phone: [employer] Start: 06-15-2021 End: 06-15-2021 Elroy Weiss MD Work Phone: [employer] Start: 06-14-2021 Non-patient / Non-visit Dr. Parvez Weiss Work Phone: [facility] Start: 06-13-2021 Non-patient / Non-visit Dr. Parvez Weiss Work Phone: [facility] Start: 06-12-2021 Non-patient / Non-visit Dr. Parvez Weiss Work Phone: [facility] Start: 06-12-2021 End: 06-14-2021 Evaluation and management of inpatient Dr. Elroy Weiss Work Phone: [facility] Start: 06-12-2021 End: 06-12-2021 Office outpatient visit 15 minutes Elroy Weiss MD Work Phone: [employer]. Start: 05-14-2021 End: 05-14-2021 Elroy Weiss MD Work Phone: [employer]. Start: 05-10-2021 End: 05-10-2021 Office outpatient visit 25 minutes Elroy Weiss MD Work Phone: [employer]. Start: 04-09-2021 End: 04-10-2021 Office outpatient visit 25 minutes Elroy Weiss MD Work Phone: [employer]. Start: 02-27-2021 End: 02-27-2021 Office outpatient visit 15 minutes Elroy Weiss MD Work Phone: [employer]. Start: 02-05-2021 End: 02-05-2021 Office outpatient visit 25 minutes Elroy Weiss MD Work Phone: [employer]. Start: 01-23-2021 End: 01-23-2021 Elroy Weiss MD Work Phone: [employer]. Start: 12-26-2020 End: 12-26-2020 Office outpatient visit 25 minutes Elroy Weiss MD Work Phone: [employer]. Start: 12-18-2020 End: 12-18-2020 Elroy Weiss MD Work Phone: [employer] Start: 12-08-2020 End: 12-08-2020 Elroy Weiss MD Work Phone: [employer] Start: 11-15-2020 End: 11-15-2020 Elroy Weiss MD Work Phone: [employer] Start: 11-03-2020 End: 11-13-2020 Evaluation and management of inpatient Zulma Mujica MD Work Phone: [facility] Comment on above: S/P CABG (coronary a rtery bypass graft) (Primary Dx); Stress hyperglycemia; Prediabetes; Coronary artery disease of [place] artery of [place] heart with stable angina pectoris (HCC) Start: 10-24-2020 End: 10-24-2020 Elroy Weiss MD Work Phone: [employer] Start: 10-18-2020 End: 10-19-2020 Office outpatient visit 25 minutes Elroy Weiss MD Work Phone: [employer] Start: 10-05-2020 End: 10-05-2020 Office outpatient visit 25 minutes Elroy Weiss MD Work Phone: [employer] Start: 09-15-2020 End: 09-15-2020 Elroy Weiss MD Work Phone: [employer] Start: 08-17-2020 End: 08-17-2020 Office outpatient visit 15 minutes Elroy Weiss MD Work Phone: [employer] Start: 08-08-2020 End: 08-08-2020 Elroy Weiss MD Work Phone: [employer] Start: 08-01-2020 End: 08-01-2020 Office outpatient visit 25 minutes Elroy Weiss MD Work Phone: [employer] Start: 07-25-2020 End: 07-26-2020 Office outpatient visit 25 minutes Elroy Weiss MD Work Phone: [employer]. Start: 07-11-2020 End: 07-12-2020 Office outpatient visit 25 minutes Elroy Weiss MD Work Phone: [employer]. Start: 04-11-2020 End: 04-11-2020 Office outpatient visit 25 minutes Elroy Weiss MD Work Phone: [employer]. Start: 12-07-2019 End: 12-07-2019 Office outpatient visit 25 minutes Elroy Weiss MD Work Phone: [employer]. Start: 11-15-2019 End: 11-15-2019 Elroy Weiss MD Work Phone: [employer]. Start: 08-20-2019 End: 08-23-2019 Elroy Weiss MD Work Phone: [employer]. Start: 08-20-2019 End: 08-23-2019 Elroy Weiss MD Work Phone: [employer]. Start: 08-02-2019 End: 08-03-2019 Elroy Weiss MD Work Phone: [employer]. Start: 05-20-2019 End: 05-20-2019 Office outpatient visit 15 minutes Elroy Weiss MD Work Phone: [employer] Start: 04-22-2019 End: 04-26-2019 Elroy Weiss MD Work Phone: [employer]. Start: 04-13-2019 End: 04-13-2019 Elroy Weiss MD Work Phone: [employer]. Start: 04-12-2019 End: 04-12-2019 Elroy Weiss MD Work Phone: [employer]. Start: 03-24-2019 End: 03-25-2019 Elroy Weiss MD Work Phone: [employer]. Start: 03-16-2019 End: 03-16-2019 Patient encounter status Elroy Weiss MD Work Phone: [employer] Start: 03-16-2019 End: 03-16-2019 Periodic preventive med est patient 65yrs& older Elroy Weiss MD Work Phone: [employer]. Start: 03-10-2019 End: 03-10-2019 Elroy Weiss MD Work Phone: [employer]. Start: 01-14-2019 End: 01-15-2019 Elroy Weiss MD Work Phone: [employer]. Start: 01-12-2019 End: 01-12-2019 Office outpatient visit 15 minutes Elroy Weiss MD Work Phone: [employer]. Start: 11-27-2018 End: 11-27-2018 Office outpatient visit 15 minutes Elroy Weiss MD Work Phone: [employer]. Start: 11-02-2018 End: 11-02-2018 Evaluation finding Elroy Weiss MD Work Phone: [employer] Start: 11-02-2018 End: 11-02-2018 Office outpatient visit 15 minutes Elroy Weiss MD Work Phone: [employer]. Start: 11-02-2018 End: 11-02-2018 Elroy Weiss MD Work Phone: [employer]. Start: 10-23-2018 End: 10-26-2018 Elroy Weiss MD Work Phone: [employer]. Start: 10-08-2018 End: 10-08-2018 Office outpatient visit 25 minutes Elroy Weiss MD Work Phone: [employer]. Start: 07-27-2018 End: 07-27-2018 Elroy Weiss MD Work Phone: [employer]. Start: 2018 End: 2018 Elroy Weiss MD Work Phone: [employer]. Start: 05-29-2018 End: 05-29-2018 Elroy Weiss MD Work Phone: [employer]. Start: 03-02-2018 End: 03-04-2018 Elroy Weiss MD Work Phone: [employer] Start: 02-09-2018 End: 02-09-2018 Elroy Weiss MD Work Phone: [employer] Start: 02-05-2018 End: 02-05-2018 Elroy Weiss MD Work Phone: [employer] Start: 01-07-2018 End: 01-07-2018 Elroy Weiss MD Work Phone: [employer] Start: 01-02-2018 End: 01-02-2018 Office outpatient visit 25 minutes Elroy Weiss MD Work Phone: [employer] Start: 12-25-2017 End: 12-26-2017 Elroy Weiss MD Work Phone: [employer] Start: 11-24-2017 End: 11-25-2017 Elroy Weiss MD Work Phone: [employer] Start: 10-16-2017 End: 10-16-2017 Elroy Weiss MD Work Phone: [employer] Start: 10-13-2017 End: 10-13-2017 Office outpatient visit 25 minutes Elroy Weiss MD Work Phone: [employer] Start: 10-13-2017 End: 10-13-2017 Elroy Weiss MD Work Phone: [employer] Start: 10-10-2017 End: 10-10-2017 Elroy Weiss MD Work Phone: [employer] Start: 09-25-2017 End: 09-25-2017 Office outpatient visit 15 minutes Elroy Weiss MD Work Phone: [employer] Start: 2017 End: 2017 Office outpatient visit 25 minutes Elroy Weiss MD Work Phone: [employer] Start: 04-03-2017 End: 04-03-2017 Office outpatient visit 15 minutes Elroy Weiss MD Work Phone: [employer] Start: 10-11-2016 End: 10-11-2016 Elroy Weiss MD Work Phone: [employer] Start: 10-07-2016 End: 10-07-2016 Office outpatient visit 25 minutes Elroy Weiss MD Work Phone: [employer] Start: 08-30-2016 End: 08-30-2016 Office outpatient visit 25 minutes Elroy Weiss MD Work Phone: [employer] Start: 07-24-2016 End: 07-24-2016 Office outpatient visit 15 minutes Elroy Weiss MD Work Phone: [employer] Start: 07-22-2016 End: 07-22-2016 Elroy Weiss MD Work Phone: [employer] Start: 06-18-2016 End: 06-18-2016 Elroy Weiss MD Work Phone: [employer] Start: 05-28-2016 End: 05-28-2016 Elroy Weiss MD Work Phone: [employer] Start: 01-30-2016 End: 01-30-2016 Elroy Weiss MD Work Phone: [employer] Start: 08-16-2015 End: 08-16-2015 Elroy Weiss MD Work Phone: [employer] Start: 07-19-2015 End: 07-19-2015 Elroy Weiss MD Work Phone: [employer] Start: 05-19-2015 End: 05-19-2015 Office outpatient visit 15 minutes Elroy Weiss MD Work Phone: [employer] Start: 03-31-2015 End: 04-01-2015 Office outpatient visit 15 minutes Elroy Weiss MD Work Phone: [employer] Start: 02-06-2015 End: 02-06-2015 Elroy Weiss MD Work Phone: [employer] Start: 01-12-2015 End: 01-12-2015 Office outpatient visit 25 minutes Elroy Weiss MD Work Phone: [employer]. Start: 11-22-2014 End: 11-22-2014 Elroy Weiss MD Work Phone: [employer]. Start: 11-04-2014 End: 11-04-2014 Elroy Weiss MD Work Phone: [employer]. Start: 09-19-2014 End: 09-19-2014 Elroy Weiss MD Work Phone: [employer]. Start: 08-26-2014 End: 08-29-2014 Office outpatient visit 15 minutes Elroy Weiss MD Work Phone: [employer]. Start: 07-18-2014 End: 07-18-2014 Elroy Weiss MD Work Phone: [employer]. Start: 05-19-2014 End: 05-19-2014 Office outpatient visit 15 minutes Elroy Weiss MD Work Phone: [employer]. Start: 04-29-2014 End: 04-29-2014 Elroy Weiss MD Work Phone: [employer]. Start: 04-04-2014 End: 04-04-2014 Elroy Weiss MD Work Phone: [employer]. Start: 02-28-2014 End: 03-01-2014 Office outpatient visit 25 minutes Elroy Weiss MD Work Phone: [employer] Start: 01-27-2014 End: 01-27-2014 Elroy Weiss MD Work Phone: [employer]. Start: 10-18-2013 End: 10-18-2013 Elroy Weiss MD Work Phone: [employer]. Start: 06-28-2013 End: 06-28-2013 Elroy Weiss MD Work Phone: [employer]. Start: 05-31-2013 End: 05-31-2013 Elroy Weiss MD Work Phone: [employer]. Start: 05-24-2013 End: 05-24-2013 Elroy Weiss MD Work Phone: [employer]. Start: 05-03-2013 End: 05-03-2013 Elroy Weiss MD Work Phone: [employer]. Start: 04-30-2013 End: 04-30-2013 Elroy Weiss MD Work Phone: [employer]. Start: 04-14-2013 End: 04-14-2013 Elroy Weiss MD Work Phone: [employer]. Start: 04-05-2013 End: 04-06-2013 Elroy Weiss MD Work Phone: [employer]. Start: 03-08-2013 End: 03-08-2013 Elroy Weiss MD Work Phone: [employer]. Start: 02-08-2013 End: 02-08-2013 Elroy Weiss MD Work Phone: [employer]. Start: 02-06-2013 End: 02-08-2013 Elroy Weiss MD Work Phone: [employer]. Start: 02-02-2013 End: 02-02-2013 Elroy Weiss MD Work Phone: [employer]. Start: 12-15-2012 End: 12-15-2012 Elroy Weiss MD Work Phone: [employer]. Start: 11-30-2012 End: 11-30-2012 Elroy Weiss MD Work Phone: [employer]. Start: 11-18-2012 End: 11-18-2012 Elroy Weiss MD Work Phone: [employer]. Start: 09-23-2012 End: 09-23-2012 Elroy Weiss MD Work Phone: [employer]. Start: 08-27-2012 End: 08-27-2012 Elroy Weiss MD Work Phone: [employer]. Start: 07-31-2012 End: 07-31-2012 Elroy Weiss MD Work Phone: [employer]. Start: 07-24-2012 End: 07-24-2012 Elroy Weiss MD Work Phone: [employer]. Start: 07-06-2012 End: 07-06-2012 Elroy Weiss MD Work Phone: [employer]. Start: 07-01-2012 End: 07-01-2012 Elroy Weiss MD Work Phone: [employer]. Start: 06-26-2012 End: 06-26-2012 Elroy Weiss MD Work Phone: [employer]. Start: 06-09-2012 End: 06-09-2012 Elroy Weiss MD Work Phone: [employer]. Start: 06-04-2012 End: 06-04-2012 Elroy Weiss MD Work Phone: [employer]. Start: 05-06-2012 End: 05-06-2012 Elroy Weiss MD Work Phone: [employer]. Start: 04-17-2012 End: 04-17-2012 Elroy Weiss MD Work Phone: [employer]. Start: 04-14-2012 End: 04-14-2012 Elroy Weiss MD Work Phone: [employer]. Start: 01-21-2012 End: 01-21-2012 Elroy Weiss MD Work Phone: [employer]. Start: 12-31-2011 End: 12-31-2011 Elroy Weiss MD Work Phone: [employer]. Start: 12-30-2011 End: 12-30-2011 Elroy Weiss MD Work Phone: [employer]. Start: 12-18-2011 End: 12-18-2011 Elroy Weiss MD Work Phone: [employer]. Start: 12-03-2011 End: 12-03-2011 Elroy Weiss MD Work Phone: [employer]. Start: 11-12-2011 End: 11-13-2011 Elroy Weiss MD Work Phone: [employer] Start: 10-25-2011 End: 10-25-2011 Elroy Weiss MD Work Phone: [employer] Start: 10-15-2011 End: 10-15-2011 Elroy Weiss MD Work Phone: [employer]. Start: 09-17-2011 End: 09-17-2011 Elroy Weiss MD Work Phone: [employer] Start: 07-23-2011 End: 07-23-2011 Elroy Weiss MD Work Phone: [employer]. Start: 07-17-2011 End: 07-17-2011 Elroy Weiss MD Work Phone: [employer]. Start: 05-27-2011 End: 05-27-2011 Elroy Weiss MD Work Phone: [employer]. Start: 04-30-2011 End: 04-30-2011 Elroy Weiss MD Work Phone: [employer]. Start: 03-20-2011 End: 03-21-2011 Elroy Weiss MD Work Phone: [employer]. Start: 02-25-2011 End: 02-25-2011 Elroy Weiss MD Work Phone: [employer]. Start: 01-15-2011 End: 01-16-2011 Elroy Weiss MD Work Phone: [employer]. Start: 09-20-2010 End: 09-21-2010 Elroy Weiss MD Work Phone: [employer]. Start: 09-11-2010 End: 09-12-2010 Elroy Weiss MD Work Phone: [employer] Start: 07-24-2010 End: 07-24-2010 Elroy Weiss MD Work Phone: [employer]. Start: 07-18-2010 End: 07-18-2010 Elroy Weiss MD Work Phone: [employer]. Start: 07-13-2010 End: 07-14-2010 Elroy Weiss MD Work Phone: [employer]. Start: 07-04-2010 End: 07-04-2010 Elroy Weiss MD Work Phone: [employer]. Start: 04-30-2010 End: 05-01-2010 Elroy Weiss MD Work Phone: [employer]. Start: 03-26-2010 End: 03-26-2010 Elroy Weiss MD Work Phone: [employer]. Start: 03-21-2010 End: 03-21-2010 Elroy Weiss MD Work Phone: [employer] Start: 02-26-2010 End: 02-27-2010 Elroy Weiss MD Work Phone: [employer]. Start: 02-14-2010 End: 02-14-2010 Elroy Weiss MD Work Phone: [employer]. Start: 02-05-2010 End: 02-05-2010 Elroy Weiss MD Work Phone: [employer] Start: 01-17-2010 End: 01-17-2010 Elroy Weiss MD Work Phone: [employer] Evaluation finding Nisha Galloway [facility] [employer] [facility] Patient encounter status Nisha Laverne [facility] [employer]. Procedures Date Procedure Procedure Detail Performing Clinician Start: 08-20-2023 X-ray of chest posteroanterior view Start: 07-17-2023 Plain chest X-ray Start: 12-18-2022 End: 12-18-2022 Adv care pln/ no alt dcsn mkr docd or refusal Elroy Weiss MD Work Phone: Start: 12-18-2022 End: 12-18-2022 Depression screening Elroy Weiss MD Work Phone: Start: 12-18-2022 End: 12-18-2022 Falls risk assessment documented Elroy Weiss MD Work Phone: Start: 12-18-2022 End: 12-18-2022 PPPS, subseq visit Elroy Weiss MD Work Phone: Start: 12-18-2022 End: 12-18-2022 Pt falls assess docd w/o fall/injury past year Elroy Weiss MD Work Phone: Start: 12-18-2022 End: 12-18-2022 Scr dep neg, no plan reqd Elroy Weiss MD Work Phone: Start: 12-11-2022 End: 12-11-2022 Lab findings surveillance Eboni white [employer] Start: 12-11-2022 End: 12-11-2022 Eboni Xavier [employer] Start: 06-05-2022 Antibody screen JIMMY CASTANEDA Comment on above: Performed By: #### X MPO #### [facility] ([facility] [address] [place] [address] Start: 06-05-2022 Radiologic exam ches t 2 views Yanet Reed MD Work Phone: Start: 04-23-2022 Plain chest X-ray Start: 11-08-2021 End: 11-08-2021 Adv care pln/ no alt dcsn mkr docd or refusal Elroy Weiss MD Work Phone: Start: 11-08-2021 End: 11-08-2021 Depression screening Elroy Weiss MD Work Phone: Start: 11-08-2021 End: 11-08-2021 Falls risk assessment documented Elroy Weiss MD Work Phone: Start: 11-08-2021 End: 11-08-2021 PPPS, subseq visit Elroy Weiss MD Work Phone: Start: 11-08-2021 End: 11-08-2021 Pt falls assess docd w/o fall/injury past year Elroy Weiss MD Work Phone: Start: 11-08-2021 End: 11-08-2021 Scr dep neg, no plan reqd Elroy Weiss MD Work Phone: Start: 11-08-2021 End: 11-08-2021 Ketorolac tromethamine inj Elroy Weiss MD Work Phone: Start: 08-14-2021 CT angiography of ch est with contrast Dr. Elroy Weiss Work Phone: Start: 06-12-2021 CT angiography of ch est with contrast Dr. Elroy Weiss Work Phone: Start: 06-12-2021 Plain chest X-ray Dr. Lan Weiss Work Phone: Start: 06-12-2021 Bacteria identified in Blood by Culture Dr. Elroy Weiss Work Phone: Start: 06-12-2021 Respiratory Panel (PCR) Dr. Elroy Weiss Work Phone: Start: 06-12-[address] Elroy Weiss Work Phone: Start: 03-17-2021 History of coronary artery bypass grafting H/O coronary artery bypass surgery Dr. Elroy Weiss Work Phone: Start: 12-08-2020 End: 12-08-2020 Dischrg meds reconciled w/current med list Elroy Weiss MD Work Phone: Start: 11-13-2020 Radiologic exam ches t single view Ronen Rikki Entelos [employer] Work Phone: Start: 11-13-2020 Basic metabolic pane l calcium total Ronen Rikki Entelos [employer] - [employer]FORMANCE RE[employer] Work Phone: Start: 11-12-2020 Gluc bld gluc mntr d ev cleared fda spec home use Zulma Mujica MD Work Phone: Start: 11-12-2020 Radiologic exam ches t single view Ronen Brandt [employer]el[employer] - [employer]FORMANCE RE[employer] Work Phone: Start: 11-12-2020 Basic metabolic pane l calcium total Ronen Brandt Entelos [employer] - PERFORMANCE RE[employer] Work Phone: Start: 11-11-2020 Gluc bld gluc mntr d ev cleared fda spec home use Zulma Mujica MD Work Phone: Start: 11-11-2020 Gluc bld gluc mntr d ev cleared fda spec home use Zulma Mujiac MD Work Phone: Start: 11-11-2020 Gluc bld gluc mntr d ev cleared fda spec home use Zulma Mujica MD Work Phone: Start: 11-11-2020 Radiologic exam ches t single view Ronen Brandt Entelos [facility] Work Phone: Start: 11-11-2020 Basic metabolic pane l calcium total Ronen Brandt Entelos [facility] Work Phone: Start: 11-10-2020 Gluc bld gluc mntr d ev cleared fda spec home use Zulma Mujica MD Work Phone: Start: 11-10-2020 End: 11-10-2020 Gluc bld gluc mntr dev cleared fda spec home use Zulma Mujica MD Work Phone: Start: 11-10-2020 Thoracentesis for aspiration Jonnie Owusu [facility] Work Phone: Start: 11-10-2020 Culture bacterial quanttative colony count urine Jonnie Owusu [facility] Work Phone: Start: 11-10-2020 Radiologic exam ches t single view Jonnie Owusu [facility] Work Phone: Start: 11-10-2020 BLOOD GAS, ARTERIAL Florence Owusu [facility] Work Phone: Start: 11-10-2020 Urnls dip stick/tabl et rgnt auto w/o microscopy Peggy Henry [facility] Work Phone: Start: 11-10-2020 Gluc bld gluc mntr d ev cleared fda spec home use Zulma Mujica MD Work Phone: Start: 11-10-2020 Gluc bld gluc mntr d ev cleared fda spec home use Zulma Mujica MD Work Phone: Start: 11-10-2020 Radiologic exam ches t single view Ronen [employer] Work Phone: Start: 11-10-2020 Ecg routine ecg w/le ast 12 lds w/i&r Zulma Mujica MD Work Phone: Start: 11-10-2020 Basic metabolic pane l calcium total Ronen R [employer] Work Phone: Start: 11-09-2020 Gluc bld gluc mntr d ev cleared fda spec home use Zulma Mujica MD Work Phone: Start: 11-09-2020 Gluc bld gluc mntr d ev cleared fda spec home use Zulma Mujica MD Work Phone: Start: 11-09-2020 History of coronary artery bypass grafting S/P CABG (coronary artery bypass graft) Zulma Mujica MD Work Phone: Start: 11-09-2020 Gluc bld gluc mntr d ev cleared fda spec home use Zulma Mujica MD Work Phone: Start: 11-09-2020 End: 11-09-2020 Gluc bld gluc mntr dev cleared fda spec home use Zulma Mujica MD Work Phone: Start: 11-09-2020 End: 11-09-2020 Gluc bld gluc mntr dev cleared fda spec home use Zulma Mujica MD Work Phone: Start: 11-09-2020 End: 11-09-2020 Gluc bld gluc mntr dev cleared fda spec home use Zulma Mujica MD Work Phone: Start: 11-09-2020 Ecg routine ecg w/le ast 12 lds w/i&r [employer] Work Phone: Start: 11-09-2020 Gluc bld gluc mntr d ev cleared fda spec home use Zulma Mujica MD Work Phone: Start: 11-09-2020 Radiologic exam ches t single view Ronen Hein [employer]TER Work Phone: Start: 11-09-2020 Gluc bld gluc mntr d ev cleared fda spec home use Zulma Mujica MD Work Phone: Start: 11-09-2020 End: 11-09-2020 Basic metabolic panel calcium total Ronen Hein [employer] RE[employer]TER Work Phone: Start: 11-09-2020 Gluc bld gluc mntr d ev cleared fda spec home use Zulma Mujica MD Work Phone: Start: 11-08-2020 End: 11-08-2020 Gluc bld gluc mntr dev cleared fda spec home use Zulma Mujica MD Work Phone: Start: 11-08-2020 Radiologic exam ches t single view Ronen Hein [employer]FORMANCE REPORTER Work Phone: Start: 11-08-2020 Gluc bld gluc mntr d ev cleared fda spec home use Zulma Mujica MD Work Phone: Start: 11-08-2020 Ecg routine ecg w/le ast 12 lds w/i&r Ronen Hein [employer]MANCE [employer]TER Work Phone: Start: 11-08-2020 OPERATIVE REPORT 3m Sca nning Start: 11-08-2020 End: 11-08-2020 Basic metabolic panel calcium total Zulma Mujica MD Work Phone: Start: 11-08-2020 BLOOD GAS, ARTERIAL Yahaira Mujica MD Work Phone: Start: 11-08-2020 Transesophageal echocardiography Zulma Mujica MD Work Phone: Start: 11-08-2020 History of coronary artery bypass grafting H/O coronary artery bypass surgery Start: 11-08-2020 End: 11-09-2020 Assay of magnesium Peggy Henry [employer]MANCE [employer]TER Work Phone: Start: 11-08-2020 BASIC METABOLIC PANE L W/ REFLEX TO MG FOR LOW K Peggy Henry [employer] - PERFORMANCE REPORTER Work Phone: Start: 11-07-2020 MRSA BY PCR Ronen Brandt Entelos [employer] - PERFORMANCE REPORTER Work Phone: Start: 11-07-2020 RESPIRATORY PANEL, MOLECULAR, WITH COVID-19 Ronen Hein [employer] - PERFORMANCE REPORTER Work Phone: Start: 11-07-2020 Urnls dip stick/tabl et rgnt auto w/o microscopy Peggy Henry [employer] - PERFORMANCE RE[employer]TER Work Phone: Start: 11-07-2020 BEDSIDE SPIROMETRY Ngozi Henry [employer] - PERFORMANCE RE[employer] Work Phone: Start: 11-07-2020 Antibody screen Zulma pérez MD Work Phone: Start: 11-07-2020 Blood typing serologic abo Peggy Henry [employer] - PERFORMANCE RE[employer]TER Work Phone: Start: 11-07-2020 Hemoglobin glycosylated a1c Peggy Henry [employer] - PERFORMANCE REPORTER Work Phone: Start: 11-07-2020 Assay of magnesium Ngozi Henry [employer] - PERFORMANCE RE[employer]TER Work Phone: Start: 11-07-2020 BASIC METABOLIC PANE L W/ REFLEX TO MG FOR LOW K Peggy Henry [employer] - PERFORMANCE RE[employer]TER Work Phone: Start: 11-06-2020 Assay of magnesium Ngozi Henry [employer] - PERFORMANCE RE[employer]TER Work Phone: Start: 11-06-2020 BASIC METABOLIC PANE L W/ REFLEX TO MG FOR LOW K Peggy Henry [employer] - PERFORMANCE RE[employer]TER Work Phone: Start: 11-05-2020 Assay of magnesium Ngozi Henry [employer] - PERFORMANCE RE[employer]TER Work Phone: Start: 11-05-2020 BASIC METABOLIC PANE L W/ REFLEX TO MG FOR LOW K Peggy Henry [employer] - [employer]FORMANCE RE[employer]TER Work Phone: Start: 11-04-2020 Dup-scan xtr veins unilateral/limited study Peggy Henry [employer] - [employer]FORMANCE RE[employer]TER Work Phone: Start: 11-04-2020 Hemoglobin glycosylated a1c Peggy Henry [employer] - [employer]FORMANCE RE[employer]TER Work Phone: Start: 11-04-2020 Echo tthrc r-t 2d w/wom-mode compl spec&colr d Peggy Henry [employer] - [employer]FORMANCE RE[employer]TER Work Phone: Start: 11-04-2020 Assay of magnesium Ngozi Henry [employer] - PERFORMANCE RE[employer]TER Work Phone: Start: 11-04-2020 BASIC METABOLIC PANE L W/ REFLEX TO MG FOR LOW K Peggy Henry [employer] - PERFORMANCE RE[employer]TER Work Phone: Start: 11-03-2020 Radiologic exam ches t 2 views Zulma Mujica MD Work Phone: Start: 11-03-2020 Assay of magnesium Ngozi Henry [employer] - PERFORMANCE REPORTER Work Phone: Start: 11-03-2020 BASIC METABOLIC PANE L W/ REFLEX TO MG FOR LOW K Peggy Henry [employer] - PERFORMANCE REPORTER Work Phone: Start: 11-03-2020 Hepatic function panel Chadd Hudson DO Work Phone: Start: 11-03-2020 PROTIME/INR & PTT Chadd Hudson DO Work Phone: Start: 11-03-2020 Ecg routine ecg w/le ast 12 lds w/i&r Chadd Hudson DO Work Phone: Start: 03-16-2019 End: 03-16-2019 Pt falls assess docd w/o fall/injury past year Jimmy Castaneda MD Work Phone: Start: 03-16-2019 End: 03-16-2019 Scr dep neg, no plan reqd Jimmy Castaneda MD Work Phone: Start: 11-02-2018 End: 11-06-2018 Ct abdomen & pelvis w/contrast material Jimmy Castaneda MD Work Phone: Start: 10-13-2017 End: 10-13-2017 Body mass index documented Jimmy Castaneda MD Work Phone: Start: 10-13-2017 End: 10-13-2017 Eboni Xavier LPN Start: 09-25-2017 End: 09-25-2017 Body mass index documented Jimmy Castaneda MD Work Phone: Start: 2017 End: 2017 Body mass index documented Jimmy Castaneda MD Work Phone: Start: 2017 End: 2017 Most recent diastolic blood pressure < 80 mm hg Jimmy Castaneda MD Work Phone: Start: 2017 End: 2017 Most recent systolic blood pres>/equal 140 mm hg Jimmy Castaneda MD Work Phone: Start: 04-03-2017 End: 04-03-2017 Body mass index documented Jimmy Castaneda MD Work Phone: Start: 04-03-2017 End: 04-03-2017 Flu immunize order/admin Jimmy Gillette Work Phone: Start: 04-03-2017 End: 04-03-2017 Most recent diastolic blood pressure < 80 mm hg Jimmy Castaneda MD Work Phone: Start: 04-03-2017 End: 04-03-2017 Most recent systolic blood pres>/equal 140 mm hg Jimmy Castaneda MD Work Phone: Start: 04-03-2017 End: 04-08-2017 Radex spine cervical 4 or 5 views Jimmy Castaneda MD Work Phone: Start: 06-14-2016 End: 06-14-2016 Ophthalmic examination and evaluation Eboni Xavier LPN Start: 05-19-2015 End: 05-19-2015 Dexamethasone sodium phos Jimmy Castaneda MD Work Phone: Start: 01-12-2015 End: 01-12-2015 Triamcinolone acet inj NOS Jimmy Castaneda MD Work Phone: Start: 01-12-2015 End: 01-19-2015 Us retroperitoneal real time w/image limited Jimmy Castaneda MD Work Phone: Start: 09-19-2014 End: 09-19-2014 Eboni Xavier [employer] Start: 01-27-2014 End: 02-10-2014 Duplex scan extracranial art compl bi study Jimmy Castaneda MD Work Phone: Start: 02-02-2013 End: 02-09-2013 Mri abdomen w/o & w/contrast material Jimmy Castaneda MD Work Phone: Start: 12-15-2012 End: 12-15-2012 Triamcinolone acet inj NOS Jimmy Castaneda MD Work Phone: Start: 09-11-2010 End: 09-12-2010 Injection single/yeast cake cutter trigger point 1/2 muscles Jimmy Castaneda MD Work Phone: Start: 09-11-2010 End: 09-12-2010 Radex spine lumbosacral 2/3 views Jimmy Castaneda MD Work Phone: Start: 07-13-2010 End: 07-13-2010 Vitamin b12 injection Jimmy Castaneda MD Work Phone: Start: 03-26-2010 End: 04-04-2010 Arthrocentesis aspir&/inj interm jt/burs w/o us Jimmy Castaneda MD Work Phone: Start: 02-05-2010 End: 04-04-2010 Arthrocentesis aspir&/inj interm jt/burs w/o us Jimmy Castaneda MD Work Phone: History of coronary artery bypass grafting S/P CABG (coronary artery bypass graft) Zulma Mujica MD Work Phone: Plan of Treatment Date Care Activity Detail Author Start: 09-15-2023 [employer] Start: 08-27-2023 Comprehensive metabolic panel [facility] [employer] Start: 08-27-2023 Hemoglobin glycosylated a1c [facility], [facility] [employer] Start: 08-27-2023 Lipid panel [employer] Start: 08-27-2023 [employer] Start: 07-22-2023 [employer] Start: 07-17-2023 End: 07-17-2023 [facility] Start: 07-17-2023 [facility] Start: 2023 [employer] Start: 06-05-2023 Potassium [Moles/volume] in Serum or Plasma POTASSIUM [facility] Start: 08-20-2022 End: 08-20-2022 Patient encounter procedure 08/20/2022 Office Visit Sports Junior Gandhi MD [address] [place] [address] [facility] Start: 07-09-2022 End: 07-09-2022 Patient encounter procedure 07/09/2022 Office Visit Junior Osorio MD [address] [place] [address] [facility] Start: 06-21-2022 End: 06-21-2022 Arthrodesis posterior interbody lumbar FUSION POSTERIOR INTERBODY LUMBAR Spinal stenosis, lumbosacral region Degenerative scoliosis 06/21/2022 7:30 AM EST [facility] Start: 06-21-2022 End: 06-21-2022 Arthrodesis posterior/posterolatera l ea addl FUSION POSTERIOR LUMBAR EACH ADDL INTERSPACE ADD-ON PX Spinal stenosis, lumbosacral region Degenerative scoliosis 06/21/2022 7:30 AM EST [facility] Start: 06-21-2022 End: 06-21-2022 Arthrodesis posterior/posterolatera l lumbar FUSION POSTERIOR LUMBAR Spinal stenosis, lumbosacral region Degenerative scoliosis 06/21/2022 7:30 AM EST [facility] Start: 06-21-2022 End: 06-21-2022 Evaluation and management of inpatient [facility] Comment on above: Spinal stenosis, lumbosacral region FUSION POSTERIOR INT ERBODY LUMBAR L4-S1/L4-S1 LAMINECTOMY/L4-S1 POSTERIOR DECOMPRESSION/TLIF Start: 06-21-2022 End: 06-21-2022 Sparks facetectomy&foramtomy 1 sgm ea crv thrc/lmbr LAMINECTOMY VERTEBRAL SEGMENT LUMBAR EACH ADDL SEGMENT ADD-ON PX Spinal stenosis, lumbosacral region Degenerative scoliosis 06/21/2022 7:30 AM EST [facility] Start: 06-21-2022 End: 06-21-2022 LAMINECTOMY VERTEBRAL SEGMENT LUMBAR LAMINECTOMY VERTEBRAL SEGMENT LUMBAR Spinal stenosis, lumbosacral region Degenerative scoliosis 06/21/2022 7:30 AM EST [facility] Start: 06-21-2022 End: 06-21-2022 Posterior segmental instrumentation 3-6 vrt seg INSERTION SPINAL INSTRUMENTATION POSTERIOR SEGMENTAL ADD-ON PX Spinal stenosis, lumbosacral region Degenerative scoliosis 06/21/2022 7:30 AM EST [facility] Start: 06-05-2022 End: 06-05-2022 ambulatory 06/05/2022 Pre-Operative Assessment Internal Medicine Yan[facility] Reed [facility] [address] [place] [id number] Pre-Procedure Evaluation and Assessment [facility] Start: 04-23-2022 [facility] Start: 04-23-2022 Inhalation therapy procedure [facility] Work Phone: Start: 04-22-2022 Chest x-ray [facility] Start: 01-03-2022 Influenza vaccination INFLUENZA VACCINE (#1) [facility] Start: 12-27-2021 COVID-19 VACCINE (3 - Booster for Dre series) COVID-19 VACCINE (3 - Booster for Dre series) [facility] Start: 11-13-2021 Creatinine measurement Creatinine monitoring [facility] Work Phone: Start: 11-13-2021 Potassium monitoring Potassium monitoring [facility] Work Phone: Start: 11-07-2021 Diabetes mellitus screening Diabetes Screening [facility] Start: 11-07-2021 Hemoglobin A1c measurement A1C test (Diabetic or Prediabetic) [facility] Work Phone: Start: 11-04-2021 Thyroid stimulating hormone measurement TSH testing [facility] Work Phone: Start: 10-22-2021 COVID-19 VACCINE (3 - Booster for Dre series) COVID-19 VACCINE (3 - Booster for Dre series) [facility] Start: 01-03-2021 Influenza vaccination Flu vaccine (#1) [facility] Work Phone: Start: 11-15-2020 End: 11-15-2020 Patient encounter procedure 11/15/2020 Office Visit Cardiothoracic Surgery Ronen Hein, [employer] [address] [place] [address] [phone] [facility] Start: 11-06-2020 Annual Wellness Visit (AWV) Annual Wellness Visit (AWV) [facility] Work Phone: Start: 09-07-2020 COVID-19 Vaccine (2 - Booster for Dre series) COVID-19 Vaccine (2 - Booster for Dre series) [facility] [employer] Start: 2013 Pneumococcal 65+ years Vaccine (1 of 1 - PPSV23) Pneumococcal 65+ years Vaccine (1 of 1 - PPSV23) [employer] Work Phone: Start: 2013 Pneumococcal vaccination PNEUMOCOCCAL VACCINE SERIES (1 - PCV) [facility] Start: 2003 Screening for osteoporosis DEXA (modify frequency per FRAX score) [employer] Work Phone: Start: 1998 Screening for malignant neoplasm of breast Breast cancer screen [facility] Work Phone: Start: 1998 Shingles Vaccine (1 of 2) Shingles Vaccine (1 of 2) [employer] Work Phone: Start: 1998 Zoster vaccine hzv live for subcutaneous use ZOSTER (SHINGLES) VACCINE (1 of 2) [facility] Start: 1998 Zoster Vaccines (1 of 2) Zoster Vaccines (1 of 2) [facility] Start: 1993 Colonoscopy COLORECTAL CANCER SCREENING DISCUSSION [facility] Start: 1993 Screening for malignant neoplasm of colon [facility] Start: 1988 Fasting lipid profile LIPID SCREENING [facility] Start: 1988 Lipid panel LIPID SCREENING [facility] Start: 1988 Screening for malignant neoplasm of breast [facility] Start: 1988 Screening mammography MAMMOGRAM SCREENING DISCUSSION [facility] Start: 1969 Screening for malignant neoplasm of cervix CERVICAL CANCER SCREENING DISCUSSION [facility] Start: 1967 DTaP/Tdap/Td vaccine (1 - Tdap) DTaP/Tdap/Td vaccine (1 - Tdap) [facility] Work Phone: Start: 1967 DTaP/Tdap/Td Vaccines (1 - Tdap) DTaP/Tdap/Td Vaccines (1 - Tdap) [facility] Start: 1967 Third diphtheria, tetanus and acellular pertussis (DTaP) vaccination TDAP (ADULT) [facility] Start: 1966 Hepatitis C screening Hepatitis C Screening [facility] Start: 1966 Tetanus vaccination TETANUS [facility] Start: 1960 COVID-19 Vaccine (1) COVID-19 Vaccine (1) [facility] Work Phone: Start: 1958 Lipid panel Lipid screen [facility] Work Phone: Start: 1954 Pneumococcal Vaccine: 65+ Years (1 - PCV) Pneumococcal Vaccine: 65+ Years (1 - PCV) [facility] Start: 1948 Hepatitis B Vaccines (1 of 3 - 3-dose series) Hepatitis B Vaccines (1 of 3 - 3-dose series) [facility] Start: 1948 Hepatitis C antibody, confirmatory test HEPATITIS C VIRUS SCREENING [facility] Start: 1948 Hepatitis C screening [facility] Start: 1948 Lipid panel Lipid Panel [facility] Start: 1948 Potassium [Moles/volume] in Serum or Plasma POTASSIUM [facility] Start: 1948 Screening for malignant neoplasm of colon [facility] Start: 1948 Screening for osteoporosis [facility] Start: 1948 Tetanus vaccination TETANUS [facility] Acapella Acapella Respira tory Care Routine Every 2hr while awake until discontinued starting 11/08/2020 [employer] Work Phone: Comment on above: Every 2hr while awake until discontinued starting 11/08/2020 Arthrodesis posterio r interbody lumbar FUSION POSTERIOR INTERBODY LUMBAR Spinal stenosis, lumbosacral region Degenerative scoliosis [facility] Arthrodesis posterior/posterolatera l ea addl FUSION POSTERIOR LUMBAR EACH ADDL INTERSPACE ADD-ON PX Spinal stenosis, lumbosacral region Degenerative scoliosis [facility] Arthrodesis posterior/posterolatera l lumbar FUSION POSTERIOR LUMBAR Spinal stenosis, lumbosacral region Degenerative scoliosis [facility] Basic metabolic 2000 panel - Serum or Plasma Basic Metabolic Panel Lab Routine Daily until discontinued starting 11/08/2020, 5 completed [employer] Work Phone: Comment on above: Daily until discontinued starting 2020, 5 completed Calcium, Ionized Calcium, Ionize d Lab Routine As Needed until discontinued starting 11/08/2020 [employer] Work Phone: Comment on above: As Needed until discontinued starting CBC panel - Blood by Automated count CBC Lab Routine Daily until discontinued starting 11/08/2020, 5 completed [employer] Work Phone: Comment on above: Daily until discontinued starting 2020, 5 completed Sparks facetectomy&foramtomy 1 sgm ea crv thrc/lmbr LAMINECTOMY VERTEBRAL SEGMENT LUMBAR EACH ADDL SEGMENT ADD-ON PX Spinal stenosis, lumbosacral region Degenerative scoliosis [facility] LAMINECTOMY VERTEBRA L SEGMENT LUMBAR LAMINECTOMY VERTEBRAL SEGMENT LUMBAR Spinal stenosis, lumbosacral region Degenerative scoliosis [facility] Magnesium [Mass/volu me] in Serum or Plasma Magnesium Lab Routine Daily until discontinued starting 11/08/2020, 5 completed [facility] Work Phone: Comment on above: Daily until discontinued starting 2020, 5 completed Patient Education [facility] Work Phone: Patient referral [facility] Work Phone: Posterior segmental instrumentation 3-6 vrt seg INSERTION SPINAL INSTRUMENTATION POSTERIOR SEGMENTAL ADD-ON PX Spinal stenosis, lumbosacral region Degenerative scoliosis [facility] Spirometry panel Incentive nancy met[facility] Res[facility] Routine Every 2hr while awake until discontinued starting 11/08/2020 [facility] Work Phone: Comment on above: Every 2hr while awake until discontinued starting 11/08/2020 Troponin I.cardiac [Mass/volume] in Serum or Plasma [facility] Work Phone: US Heart Transesophageal ECHO Transesophageal Echocardiography Routine 11/08/2020 2:37 PM EDT [facility] Work Phone: XR CHEST PORTABLE XR CHEST PACO BLE Imaging Routine Daily until discontinued starting 11/09/2020, 5 completed [facility] Work Phone: Comment on above: Daily until discontinued starting 2020, 5 completed [employer]; [employer] Immunizations Immunization Date Immunization Notes Care Provider [facility] 02-11-2022 influenza, high dose seasonal, preservative-free Elroy Weiss MD Work Phone: [employer]; [employer] 08-27-2021 Elroy Weiss MD Work Phone: [employer]; [employer] 02-23-2021 influenza, injectabl e, quadrivalent, preservative free [facility] 02-23-2021 influenza, seasonal, injectable Dr. Elroy Weiss Work Phone: [facility] 02-23-2021 influenza virus vacc ine, unspecified formulation Junior Santiago MD Work Phone: [facility] 10-18-2020 Covid (Ervin & Ervin) Dr. Elroy Weiss Work Phone: [facility] 07-13-2020 Dre SARS-CoV-2 Vaccination Elroy Weiss MD Work Phone: [employer]; [facility] 02-21-2020 influenza, injectabl e, quadrivalent, preservative free [facility] 02-21-2020 influenza, seasonal, injectable Dr. Elroy Weiss Work Phone: [facility] 02-03-2020 zoster vaccine recombinant Elroy Weiss MD Work Phone: [facility] 01-04-2020 influenza, injectabl e, quadrivalent, contains preservative Elroy Weiss MD Work Phone: [facility] 01-22-2019 influenza, high dose seasonal, preservative-free Elroy Weiss MD Work Phone: [facility] 2017 pneumococcal polysaccharide vaccine, 23 valent Elroy Weiss MD Work Phone: [facility] 03-24-2017 influenza, injectabl e, quadrivalent, contains preservative Elroy Weiss MD Work Phone: [facility] 02-07-2016 influenza, seasonal, injectable Elroy Weiss MD Work Phone: [facility] 02-07-2016 pneumococcal conjuga te vaccine, 13 valent Elroy Weiss MD Work Phone: [facility] 02-08-2014 zoster vaccine, live Elroy kline MD Work Phone: [facility] 01-26-2014 influenza, seasonal, injectable Elroy Weiss MD [facility] Phone: [facility] 12-21-2013 influenza, seasonal, injectable Elroy Weiss MD Work Phone: [facility] 03-20-2011 influenza, seasonal, injectable Elroy Weiss MD Work Phone: [facility] 03-20-2011 Elroy Weiss MD Work Phone: [facility] [place] [place] Payers Date Payer Category Payer Self-pay [id number] 2021 Private Health Insurance [facility] [id number] 2020 Medicare AETNA MEDICARE A ETNA MEDICARE-ADVANTAGE PPO [id number] 2020-Present [address] [place] [address] Medicare [id number] 2020 Medicare [id number] 1948 Unknown [id number] 2.16.840.1.849862.3.579.2.5 94 1948 Unknown [id number] 2.16.840.1.856616.3.579.2.5 94 1948 Unknown [id number] 2.16.840.1.227539.3.579.2.5 94 1948 Unknown [id number] 2.16.840.1.831636.3.579.2.5 94 1948 Unknown [id number] 2.16.840.1.723986.3.579.2.5 94 1948 Unknown [id number] 2.16.840.1.357697.3.579.2.5 94 1948 Unknown [id number] 2.16.840.1.536489.3.579.2.5 94 1948 Unknown [id number] 2.16.840.1.100757.3.579.2.5 94 1948 Unknown [id number] 2.16.840.1.007183.3.579.2.5 94 1948 Unknown [id number] 2.16.840.1.053841.3.579.2.6 51 Medicare [id number] Private Health Insurance [id number] Unknown Unknown [id number] 2.16.840.1.588735.3.579.2.4 62 Unknown [id number] 2.16.840.1.531320.3.579.2.4 62 Unknown [id number] 2.16.840.1.215503.3.579.2.4 62 Unknown [id number] 2.16.840.1.615897.3.579.2.4 62 Unknown [id number] 2.16.840.1.928328.3.579.2.4 62 Unknown [id number] 2.16.840.1.916141.3.579.2.4 62 Unknown [id number] 2.16.840.1.252760.3.579.2.4 62 Unknown [id number] 2.16.840.1.377552.3.579.2.4 62 Unknown [id number] 2.16.840.1.579224.3.579.2.4 62 Unknown [id number] 2.16.840.1.886360.3.579.2.4 62 Unknown [id number] 2.16.840.1.152459.3.579.2.4 62 Unknown [id number] 2.16.840.1.155624.3.579.2.4 62 Unknown [id number] 2.16.840.1.153478.3.579.2.4 62 Social History Date Type Detail Facility Start: 10-11-2020 End: 11-11-2020 Tobacco smoking status NHIS Never smoker [facility] Start: 11-11-2020 End: 11-22-2020 Alcohol intake Not Asked [facility] Work Phone: Start: 1950 Sex Assigned At Not on file [facility] Work Phone: Exposure to SARS-CoV -2 (event) Not sure [facility] Start: 08-14-2021 End: 07-17-2023 Tobacco smoking status NHIS Unknown if ever smoked [facility] Start: 02-22-2021 Non-smoker [facility] Start: 1950 Sex Assigned At Female [facility] Start: 10-11-2020 Tobacco use and exposure Smokeless tobacco non-user [facility] Start: 05-25-2022 End: 06-05-2022 Exposure to SARS-CoV-2 (event) Unable to assess [facility] None. [facility]. [facility] Never smoker. [facility]. Functional Status Date Assessment Result Facility 06-14-2021 Functional status Ambulates [facility] Work Phone: Mental Status Date Assessment Result Facility 07-17-2023 Cognitive function Voice/Name [facility] Work Phone: 06-14-2021 Cognitive function Voice/Name [facility] Work Phone: Clinical Notes 11-08-2020 to 05-31-2024 Note Date & Type Note Facility 05-31-2024 Note [facility] Medical Records Department [address] [place] [address] Discharge Summary 05/31/24 1357 MR#: [id number] Acct: [id number] Name: GENNY VARELA Rep #: [id number] : 1950 73 From: Ke Mccullough DO PCP: Dr. Chadd Walton MD Status:DIS JANICE Location: [place] [address]-1 Providers Date of Admission: 05/30/24 Date of Discharge: 05/31/24 Primary Care Physician: Dr. Chadd Walton MD Reason For Visit: CHEST PAIN Diagnosis Discharge Diagnosis (1) Chest pain: Status: Acute Code(s): R07.9 - Chest pain, unspecified Plan 1. Musculoskeletal chest pain #2 dehydration secondary to prescription diuretic usage #3 essential hypertension #4 coronary artery disease Acute kidney injury was ruled out Medications at Discharge Home Medications rosuvastatin 20 mg tablet 20 mg PO QHS cholesterol 12/15/20 labetalol 200 mg tablet 200 mg PO BID Check with primary doctor 06/12/21 pantoprazole 40 mg tablet,delayed release (Protonix) 40 mg PO DAILY Check with primary doctor 06/12/21 valsartan 320 mg tablet 320 mg PO DAILY Check with primary doctor 06/12/21 tramadol 50 mg tablet 50 mg PO Q8H pain 07/17/23 gabapentin 300 mg capsule 300 mg PO DAILY 01/20/24 aspirin 81 mg tablet,delayed release 81 mg PO BREAKFAST #0 tabs 05/31/24 Hospital Course Operations None Procedures Nuclear stress test Summary of Care Provided Minutes Spent on Discharge: 31 Hospital Course: 73-year-old white female was seen in the emergency room at [facility] with complaints of midsternal chest pain that she described as a pressure-like sensation. Patient states the discomfort does not radiate, she stated the pain was worse with exertion, she also complained of some shortness of breath. Labs were remarkable for hemoglobin of 11.3, troponin was unremarkable, creatinine was slightly elevated at 1.28 and BUN was 20. Patient's EKG showed no evidence of ischemic changes. Patient was placed in observation status on PCU and cardiac enzymes were cycled and remained normal. Patient underwent a nuclear stress test that did not show any evidence of reversible ischemia. This examiner did not feel the patient had acute kidney injury rather I felt that the patient was dehydrated from her outpatient use of diuretics for blood pressure control. Patient's repeat creatinine was 0.92. On 05/31/2024, patient was seen and examined: On examination she appeared in good health and spirits, she does not appear to be in any distress. Vital signs as documented. Skin warm and dry and without overt rashes. Neck without JVD, thyroid appears normal, trachea is midline, neck is supple. Lungs clear, normal air movement was noted. Heart exam notable for regular rhythm, normal sounds and absence of murmurs, rubs or gallops. Abdomen unremarkable and without evidence of organomegaly, masses, or abdominal aortic enlargement, bowel sounds are present in all 4 quadrants, no abdominal tenderness was noted. Extremities nonedematous, no cyanosis was noted, no clubbing was noted. Neuro: Cranial nerves II through XII are grossly intact, no focal motor deficits were noted, sensation to light touch and pinprick is intact, motor exam 5/5 throughout. Psych: Patient is alert and oriented x3, she does not appear anxious or depressed, she does not appear agitated. Patient appeared to be stable for discharge home on 05/31/2024 Weight / BMI Weight Weight: 59.2 kg Body Mass Index (BMI) 26.3 ABG / Lab / Microbiology Data 05/30/24 06:26 05/30/24 06:26 Laboratory: Laboratory Results - last 24 hr 05/31/24 05:49: Triglycerides 112, Cholesterol 115, LDL Cholesterol 38, VLDL Cholesterol 22, HDL Cholesterol 55 Microbiology: Microbiology 05/30/24 00:58 Mucosa - Nasopharyngeal Respiratory Panel (PCR) - Final 05/29/24 20:40 Mucosa - Nose SARS-CoV-2, Influenza RSV (PCR) - Final D/C Instructions Discharge Diet: No restrictions Weight Bearing Status: Full weight bearing DC O2, CPAP, BIPAP Needs Home O2 Discharge instructions: No Meaningful Use Info Meaningful Use Meaningful Use Diagnoses (Choose all that apply): None applicable Ischemic Stroke Statin Dosing Therapy Reference: STATIN DOSE THERAPY REFERENCE: * Patients > 75 years receive moderate or high dose statin therapy. * Patients 75 years or YOUNGER should receive HIGH intensity statin dose unless contraindicated. You will be required to document reason for non-treatment if statin daily dose does not meet guidelines. HIGH DOSE STATIN THERAPY DAILY Atorvastatin > than or = to 40 mg Rosuvastatin > than or = to 20 mg Amlodipine + Atorvastatin > than or = to 2.5/40 mg Ezetimibe + Simvastatin 10/80 mg Simvastatin 80mg Discharge Plan Admission Admit Date/Time: 05/30/24 00:16 Primary Reason for Y (more content not included)... [facility] 01-24-2024 Note [facility] Medical Records Department [address] [place] [address] Discharge Summary 01/24/24 1117 MR#: [id number] Acct: [id number] Name: GENNY VARELA Rep #: [id number] : 1950 73 From: Juana Jin MD PCP: Dr. Chadd Walton MD Status:DIS IN Location: ICU ICU-1 Providers Date of Admission: 01/20/24 Date of Discharge: 01/24/24 Primary Care Physician: Dr. Chadd Walton MD Consultations 01/20/24 18:07 Consult: Podiatry Routine Consulting Provider: Nehemiah Callejas Reason for Consult: L toe fracture EMERGENT Consult: No Notified: Yes Date Notified: 01/20/24 Time Notified: 16:56 Method of Notification: Text 01/22/24 13:14 Consult: Tele-Neurology Routine Consulting Provider: [facility] Reason for Consult: acute encephalopathy, etiology is not clear EMERGENT Consult: No Notified: Yes Date Notified: 01/22/24 Time Notified: 13:14 Method of Notification: Answering Service Nursing Unit Staff Notify [facility] of Tele-Neurology Consult: Yes Reason For Visit: ENCEPHALOPATHY, AGITATION, LACTIC ACIDOSIS Diagnosis Discharge Diagnosis (1) Toxic metabolic encephalopathy: Status: Acute Code(s): G92.8 - Other toxic encephalopathy (2) Medication side effect: Status: Acute Code(s): T88.7XXA - Unspecified adverse effect of drug or medicament, initial encounter Plan #Acute encephalopathy * She was brought in because of concerns that she was confused. She had recently started baclofen. * Baclofen discontinued. Patient now alert but still remains confused. Urine tox negative. * Vitals have remained stable. There is no evidence of infection. * PT OT on board. * Ammonia level was also not elevated and CT of the brain showed no acute intracranial pathology. * awaiting neurology evaluation * she is much more alert and oriented; she is alert and oriented x 3 today. #Lactic acidosis: Resolved #Hypoxia: Resolved. On room air #Rhabdomyolysis: * CPK was 2004 on admission and trending down to 1346. Continue aggressive hydration with IV fluids. #Closed fracture of the left great toe * Patient's left great toe is swollen and erythematous. * Imaging done showed nondisplaced fracture at the base of the distal phalanx of the left great toe. * Podiatry consulted, yet still awaiting rec's * #Chronic low back pain: Ultram and baclofen on hold due to her presenting with confusion. #CAD s/p CABG: on aspirin and high intensity statin. #Hypertension: * On valsartan, labetalol and chlorthalidone. * These were held on admission due to encephalopathy. * now resumed. IV hydralazine prn #Hyperlipidemia: On statin #GERD: On PPI. Will resume p.o. Protonix #DVT prophylaxis: Lovenox Disposition: to be determined Medications at Discharge Home Medications rosuvastatin 20 mg tablet 20 mg PO QHS cholesterol 12/15/20 aspirin 81 mg tablet,delayed release 81 mg PO DAILY@0800 Check with primary doctor 06/12/21 labetalol 200 mg tablet 200 mg PO BID Check with primary doctor 06/12/21 pantoprazole 40 mg tablet,delayed release (Protonix) 40 mg PO DAILY Check with primary doctor 06/12/21 valsartan 320 mg tablet 320 mg PO DAILY Check with primary doctor 06/12/21 chlorthalidone 25 mg tablet 25 mg PO DAILY 08/14/21 potassium chloride 20 mEq tablet,extended release(part/cryst) (Klor-Con M) 20 meq PO DAILY 11/20/21 tramadol 50 mg tablet 50 mg PO Q8H pain 07/17/23 gabapentin 300 mg capsule 300 mg PO DAILY 01/20/24 Hospital Course Operations None Procedures None Summary of Care Provided Minutes Spent on Discharge: 55 Hospital Course: Patient is a 73 y/o female with a PMH as outlined who was admitted via the ED on 01/24/2024 with a complaint of altered mental status. Her significant other that had reported that she has seemed a bit confused the day before admission but subsequently was okay and was able to carry out activities of daily living. She had been started on baclofen the night before she came into the hospital for chronic back issues. She had also had multiple falls within the past week before admission sustained some bruising on her lower extremities. On admission she was quite agitated in the ED and had to be given IM Geodon in the ED. Talk screen was negative and serum alcohol level was less than 3. Ammonia level was also not elevated. EKG showed no acute ST changes and CT of the brain showed no acute intracranial pathology. CT of the abdomen and pelvis showed distended bladder and intrahepatic bile ducts consistent with prior cholecystectomy. Chest x-ray showed mild volume overload and a 1.1 cm nodule in the peripheral aspect of the right upper lobe and foot x-ray done showed a nondisplaced fracture at the base of the distal phalanx of the great toe with soft tissue swelling. She was admitted and managed for acute encephalopathy of unclear etiology b (more content not included)... [facility] 01-23-2024 Note [facility] Medical Records Department [address] [place] [address] Consultation 01/23/24 1301 MR#: [id number] Acct: [id number] Name: GENNY VARELA Rep #: [id number] : 1950 73 From: Nehemiah Callejas DPM PCP: Dr. Chadd Walton MD Status:ADM IN Location: ICU ICU09- Assessment Plan Assessment/Plan (1) Closed nondisplaced fracture of left great toe: QUALIFIERS: Encounter type: initial encounter Phalanx: distal Qualified Code(s): S 92.425A - Nondisplaced fracture of distal phalanx of left great toe, initial encounter for closed fracture PLAN: Exam performed. Radiographs reviewed. Conservative treatment indicated. Will plan for protected weightbearing in surgical shoe to left lower extremity for 4 to 8 weeks. Patient will follow-up outpatient setting with me in 1 to 2 weeks upon discharge from the hospital. If any other questions concerns arise please contact me for additional workup otherwise podiatry will sign off. (2) Fracture of distal phalanx of left great toe: (3) Nondisplaced fracture of distal phalanx of left great toe: HPI Consult Data Date of Consult: 01/23/24 HPI Narrative HPI Narrative: GENNY VARELA, is a 73 F who presents To ICU with acute encephalopathy. Patient had fallen 1 week prior fracture left great toe. Podiatry was consulted for this reason. Patient has minimal pain to left great toe and is able to ambulate without assistance in a surgical shoe to left lower extremity. [facility] Medical History Preop cardiovascular exam Dyspnea Acute respiratory failure with hypoxia COVID-19 Anemia Chronic pain Facial droop Postoperative atrial fibrillation (11/10/20) Essential hypertension Atherosclerosis of [place] coronary artery of [place] heart without angina pectoris Pinched vertebral nerve Scoliosis GERD (gastroesophageal reflux disease) HLD (hyperlipidemia) History of back pain Home Medications ???Medication ???Instructions ???Recorded ???Last Taken ???Type rosuvastatin 20 mg tablet 20 mg PO QHS cholesterol 12/15/20 07/16/23 History aspirin 81 mg tablet,delayed 81 mg PO DAILY@0800 Check with 06/12/21 07/17/23 History release primary doctor labetalol 200 mg tablet 200 mg PO BID Check with primary 06/12/21 07/17/23 History doctor pantoprazole 40 mg tablet,delayed 40 mg PO DAILY Check with primary 06/12/21 07/17/23 History release (Protonix) doctor valsartan 320 mg tablet 320 mg PO DAILY Check with primary 06/12/21 07/17/23 History doctor chlorthalidone 25 mg tablet 25 mg PO DAILY 08/14/21 07/17/23 History potassium chloride 20 mEq 20 meq PO DAILY 11/20/21 07/17/23 History tablet,extended release(part/cryst) (Klor-Con M) tramadol 50 mg tablet 50 mg PO Q8H pain 07/17/23 07/17/23 History baclofen 10 mg tablet 10 mg PO TID 01/20/24 Unknown History gabapentin 300 mg capsule 300 mg PO DAILY 01/20/24 Unknown History Allergy/AdvReac Type Severity Reaction Status Date / Time levofloxacin Allergy Severe leg pain Verified 01/20/24 14:17 amiodarone Allergy mental Verified 01/20/24 14:17 confusion Penicillins Allergy Unknown Verified 01/20/24 14:17 Sulfa (Sulfonamide Allergy Rash Verified 01/20/24 14:17 Antibiotics) ciprofloxacin AdvReac Rash Verified 01/20/24 14:17 lorazepam (From Ativan) AdvReac I went Verified 01/20/24 14:17 crazy Family History Mother Alcoholism Father Hypertension Brother Diabetes Sister Diabetes Hypertension Sister No problems noted. Son Hypertension Other Kidney disease Surgical History History of left heart catheterization (11/03/20) History of appendectomy H/O coronary artery bypass surgery (11/08/20) History of cholecystectomy Social History household members: spouse pets and animals: Yes (cats) Smoking Status: Never smoker alcohol intake: never substance use type: does not use caffeine: Yes Type: carbonated beverages Physical Exam Narrative Vascular: Dorsalis pedis posterior tibial pulse palpable 2 out of 4 bilateral lower extremity compartments. Neurologic: Light touch and protective sensation intact bilateral feet. Dermatologic: Diffuse ecchymosis left great toe. Small focal superficial scab noted to the dorsal lateral aspect of the left great toe. Musculoskeletal: Pain to palpation to the distal phalanx of the left great toe pain with interphalangeal joint range of motion of the left great toe. Lab / Micro Data 01/23/24 07:31 01/23/24 07:31 Labs: Laboratory Results - last 24 hr 01/23/24 07:31: WBC 6.8, RBC 3.32 L, Hgb 10.8 L, Hct 32.7 L, MCV 98.5, MCH 32.5 H, MCHC 33.0, RDW Std Deviation 4 (more content not included)... [facility] 07-17-2023 Discharge summary Note Date/Time July 17, 2023 1:53pm [facility] Medical Records Department [address] [place] [address] Emergency Department Summary 07/17/23 MR#: [id number] Acct: [id number] Name: GENNY VARELA Rep #:[id number] : 1950 73 From: Jesse Patterson PCP: Dr. Elroy Weiss MD Status:REG ER Location: ED HPI History of Present Illness Chief Complaint: Chest Pain Informant: patient Onset/Context/Timing Onset: Days (3) Activity at onset: sudden Timing: Intermittent and Lasts (1 to 2 minutes) Quality: Positive for Pressure and Sharp Location: Left Chest Worsened By: Nothing Relieved By: Nothing Associated Symptoms: Positive for Diaphoresis, Cough and Lightheadedness; Negative for Nausea, Vomiting, Dyspnea, Fever, Acid Reflux or Palpitations Narrative Narrative: Patient presents with chest pain that has been intermittent over the last 3 days. Patient states that it lasts 1 to 2 minutes when it comes on. Patient describes the pain as sharp and pressure. Patient states it is over the left lower chest. Patient states nothing makes it better and nothing makes it worse. Patient admits to some diaphoresis. Patient also admits to mild cough. Patient states she feels lightheaded at times. Patient denies any nausea or vomiting. Patient denies any palpitations or shortness of breath. Patient denies any fevers or chills. CVD Risk Factors: Positive for Hypertension and Hypercholesterolemia; Negative for Diabetes, Family History 1' </=55 or Smoking PE Risk Factors: Negative for Recent Travel/Surgery, Recent Immobilization, Prior DVT or PE, Cancer or OCP + Smoking + >/=35 PFSH PFSH Medical History Acute respiratory failure with hypoxia Anemia Atherosclerosis of [place] coronary artery of [place] heart without angina pectoris Chronic pain COVID-19 Dyspnea Essential hypertension Facial droop GERD (gastroesophageal reflux disease) History of back pain HLD (hyperlipidemia) Pinched vertebral nerve Postoperative atrial fibrillation (11/10/20) Preop cardiovascular exam Scoliosis Home Medications rosuvastatin 20 mg tablet 20 mg PO QHS cholesterol 12/15/20 [History Last Taken 07/16/23] aspirin 81 mg tablet,delayed release 81 mg PO DAILY@0800 Check with primary doctor 06/12/21 [History Last Taken 07/17/23] labetalol 200 mg tablet 200 mg PO BID Check with primary doctor 06/12/21 [History Last Taken 07/17/23] pantoprazole 40 mg tablet,delayed release (Protonix) 40 mg PO DAILY Check with primary doctor 06/12/21 [History Last Taken 07/17/23] valsartan 320 mg tablet 320 mg PO DAILY Check with primary doctor 06/12/21 [History Last Taken 07/17/23] chlorthalidone 25 mg tablet 25 mg PO DAILY 08/14/21 [History Last Taken 07/17/23] potassium chloride 20 mEq tablet,extended release(part/cryst) (Klor-Con M) 20 meq PO DAILY 11/20/21 [History Last Taken 07/17/23] tramadol 50 mg tablet 50 mg PO DAILY PRN pain 07/17/23 [History Last Taken 07/17/23] Allergy/AdvReac Type Severity Reaction Status Date / Time levofloxacin Allergy Severe leg pain Verified 07/17/23 12:33 amiodarone Allergy mental Verified 07/17/23 12:33 confusion Penicillins Allergy Unknown Verified 07/17/23 12:33 Sulfa (Sulfonamide Allergy Rash Verified 07/17/23 12:33 Antibiotics) ciprofloxacin AdvReac Rash Verified 07/17/23 12:33 lorazepam [From Ativan] AdvReac I went Verified 07/17/23 12:33 crazy Family History Mother Alcoholism Father Hypertension Brother Diabetes Sister Diabetes Hypertension Sister No problems noted. Son Hypertension Other Kidney disease Surgical History H/O coronary artery bypass surgery (11/08/20) History of appendectomy History of cholecystectomy History of left heart catheterization (11/03/20) Social History household members: spouse pets and animals: Yes (cats) Smoking Status: Never smoker alcohol intake: never substance use type: does not use caffeine: Yes Type: carbonated beverages ROS ROS ED Constitutional Constitutional ED: Denies chills or fever(s) Eyes Eyes: Denies blurry vision or change in vision ENT ENT ED: Denies rhinorrhea or sore throat Cardiovascular Cardiovascular: Reports chest pain; Denies palpitations Respiratory/Chest Respiratory/Chest: Reports cough and dyspnea Gastrointestinal Gastrointestinal: Denies nausea or vomiting Genitourinary Genitourinary ED: Denies dysuria or hematuria Musculoskeletal Musculoskeletal: Reports back pain and neck pain Integumentary Denies abscess or rash Neurologic Neurologic: Reports headache(s); Denies weakness Allergic/Immunologic Allergic/Immunologic ED: Denies mouth swelling or urticaria EXAM Physical Exam Const Vital Signs: 07/17/23 12:33 07/17/23 13:25 07/17/23 13:27 Temperature 97.3 F L Temperature Source Temporal Pulse Rate 66 70 Respiratory Rate 14 18 Respiratory Effort Normal Non-Labored Blood Pressure 124/56 H 108/53 L Blood Pressure Mean 78 71 Pulse Ox 92 93 Oxygen Delivery Method Room Air Room Air 07/17/23 13:52 07/17/23 13:33 07/17/23 13:40 Temperature Temperature Source Pulse Rate 63 74 Respiratory Rate 10 L 14 Respiratory Effort Blood Pressure Blood Pressure Mean Pulse Ox 90 92 Oxygen Delivery Method Room Air 07/17/23 13:50 07/17/23 14:00 07/17/23 14:10 Temperature Temperature Source Pulse Rate 62 65 73 Respiratory Rate 9 L 16 20 H Respiratory Effort Blood Pressure 101/47 L Blood Pressure Mean 56 Pulse Ox 92 93 89 Oxygen Delivery Method 07/17/23 14:20 07/17/23 14:30 07/17/23 14:40 Temperature Temperature Source Pulse Rate 76 78 74 Respiratory Rate 30 H 20 H 30 H Respiratory Effort Blood Pressure Blood Pressure Mean Pulse Ox 92 89 92 Oxygen Delivery Method 07/17/23 14:50 07/17/23 15:00 07/17/23 17:00 Temperature Temperature Source Pulse Rate 64 61 59 L Respiratory Rate 7 L 26 H 16 Respiratory Effort Blood Pressure 107/72 115/65 Blood Pressure Mean 82 81 Pulse Ox 93 94 94 Oxygen Delivery Method Room Air 07/17/23 17:00 07/17/23 15:10 07/17/23 15:20 Temperature Temperature Source Pulse Rate 60 60 62 Respiratory Rate 31 H 14 18 Respiratory Effort Blood Pressure 115/65 Blood Pressure Mean 81 Pulse Ox 94 93 93 Oxygen Delivery Method Room Air 07/17/23 15:30 07/17/23 15:40 07/17/23 15:50 Temperature Temperature Source Pulse Rate 62 69 78 Respiratory Rate 16 47 H 26 H Respiratory Effort Blood Pressure Blood Pressure Mean Pulse Ox 92 93 91 Oxygen Delivery Method 07/17/23 16:00 07/17/23 16:10 07/17/23 16:20 Temperature Temperature Source Pulse Rate 69 63 67 Respiratory Rate 17 15 27 H Respiratory Effort Blood Pressure 104/91 H Blood Pressure Mean 97 Pulse Ox 89 94 93 Oxygen Delivery Method 07/17/23 16:30 07/17/23 16:40 07/17/23 16:50 Temperature Temperature Source Pulse Rate 88 72 70 Respiratory Rate 43 H 22 H 25 H Respiratory Effort Blood Pressure Blood Pressure Mean Pulse Ox 90 95 95 Oxygen Delivery Method Positive well nourished and well developed General Appearance ED: well developed and NAD HEENT Reports moist mucous membranes Neck supple and no JVD Chest Wall Chest: tenderness costal cartilage Resp normal respiratory effort and clear to auscultation bilaterally Cardio regular rate and regular rhythm GI soft to palpation, non-tender and non-distended Neuro oriented x3, CN's II-XII intact bilaterally and no sensory deficits noted Sensorium / Orientation: awake and alert Motor Exam: strength 5/5 throughout Psych mental status grossly normal Heart Score History: Slightly/Non-Suspicious ECG: Normal Age: >/= 65 years Risk Factors: >/= 3 Risk Factors or History of CAD Troponin: </= Normal Limit Score: 4 MDM MDM MDM Narrative Medical decision making narrative: Differential diagnosis includes cardiac dysrhythmia, cardiac ischemia, musculoskeletal pain, electrolyte abnormality, pneumonia, pneumothorax, and anxiety. EKG will be obtained to assess for cardiac dysrhythmia and cardiac ischemia. Chest x-ray will be obtained to assess for pneumonia and pneumothorax. CBC will be obtained to assess for leukocytosis and anemia. Basic metabolic profile will be obtained to assess for electrolyte abnormality and renal function. High-sensitivity troponin will be obtained to assess for cardiac ischemia. 2-hour repeat high-sensitivity troponin will be obtained to assess for ongoing cardiac ischemia. History & Record Review Additional record(s) reviewed:: Prior labs Lab Data Attestation: I reviewed the patient's lab results. Lab results narrative: CBC was reviewed. There is a mild anemia with a hemoglobin of 11.1 and hematocrit of 35.5. These are consistent with prior results. Basic metabolic profile was reviewed. BUN was slightly elevated at 36 and creatinine was slightly elevated 1.69. These are slightly increased from previous result. Initial high-sensitivity troponin was reviewed and was normal at 8. 2-hour repeat high-sensitivity troponin was reviewed and was normal at 10. Labs: Laboratory Results - last 24 hr 07/17/23 07/17/23 14:20 16:40 WBC 5.6 RBC 3.42 L Hgb 11.1 L Hct 35.5 L MCV 103.8 H MCH 32.5 H MCHC 31.3 L RDW Std Deviation 51.0 H RDW Coeff of [place] 13.4 Plt Count 210 MPV 11.7 Immature Gran % (Auto) 0.200 Neut % (Auto) 56.1 Lymph % (Auto) 22.7 [place] % (Auto) 13.3 H Eos % (Auto) 7.3 H Baso % (Auto) 0.4 Absolute Neuts (auto) 3.2 Absolute Lymphs (auto) 1.28 Nucleated RBC % 0 Sodium 139 Potassium 4.5 Chloride 109 H Carbon Dioxide 24.0 Anion Gap 6 BUN 36 H Creatinine 1.69 H Estim Creat Clear Calc 23.98 Est GFR (MDRD) Af Amer 38 L Est GFR (MDRD) Non-Af 31 L BUN/Creatinine Ratio 21.3 H Glucose 80 Calcium 8.7 Troponin I High Sens 8 10 Radiography Chest X-Ray - ED: 1 View, Read by ED Physician, Read by Radiologist and No AcuteDisease Diagnostic Testing: Clinical Impression(s) from Imaging Studies Chest X-Ray 07/17/23 13:52 IMPRESSION: Mild residual scarring at the lung bases. No acute abnormality is seen. Electronically Signed: Milan Pino MD at 14:41 EDT , Portable 1 view chest x-ray was obtained. On my independent interpretation, lung blanchard are clear. There is normal cardiac silhouette. Bony thorax is normal. There is no acute process noted. Radiologist also interpreted the x-ray and agrees. EKG Initial EKG: Attestation: I personally reviewed and interpreted this EKG as follows: Interpretation: Sinus Rhythm (71) and No Acute Injury Pattern Comments: EKG was obtained. On my independent interpretation, it showed anormal sinus rhythm with a rate of 71. NC interval, QRS interval, and QTc intervals were all normal. [place] was normal. There are no acute ST or T wave changes. Prior EKG tracings: available for review Prior: Unchanged (04/23/2022) Treatment and Re-Evaluation :: Patient was given aspirin. Patient was given IV fluids and Tylenol. Patient informed nursing staff that she was having some epigastric pain. Patient was given a GI cocktail. Patient was advised of her findings. Patient has a HEART score of 4. Patient was instructed to follow-up with her primary care physicianin 3 to 5 days. Patient understood and was agreeable with the plan. All questions were answered. Discharge Plan Triage Chief Complaint: Chest Pain ED Provider: Jesse Esparza Dx/Rx/DC Orders Clinical Impression: Chest pain of uncertain etiology, Essential hypertension, H/O coronary artery bypass surgery Instructions: ED Chest Pain, Uncertain Cause Prescriptions: No Action chlorthalidone 25 mg tablet 25 mg PO DAILY potassium chloride [Klor-Con M20] 20 mEq tablet,ER particles/crystals 20 meq PO DAILY rosuvastatin 20 mg Tablet 20 mg PO QHS labetalol 200 mg tablet 200 mg PO BID valsartan 320 mg tablet 320 mg PO DAILY Patient Comments: TAKE 1 TABLET BY MOUTH EVERY DAY aspirin 81 mg tablet,delayed release (DR/EC) 81 mg PO DAILY@0800 pantoprazole [Protonix] 40 mg tablet,delayed release (DR/EC) 40 mg PO DAILY tramadol 50 mg tablet 50 mg PO DAILY PRN (Reason: pain) Patient Comments: today was last dose for pt Primary Care Provider: Elroy Weiss Referrals: Elroy Weiss MD [Primary Care Provider] - 3-5 Days Disposition Disposition: Home, Self Care What to do if you have Problems For any increased pain, shortness of breath, bleeding, nausea or vomiting, chestpain, or any unexpected problems, contact your Primary Care Provider. Call [facility] ([phone]) or report to the closest Emergency Room. Call 911 if necessary. 07/17/23 1730 <Electronically signed by Jesse Esparza DO> Cosigner Signature (if applicable): CC: Dr. Elroy Weiss MD ~ Signed [facility] Work Phone: [phone] 807-295901-31-2023 History of Present illness Narrative* Junior Santiago MD - 06/04/2022 11:30 AM EST Orthopaedic Surgery Attending (Spine) I have personally seen and examined Genny Varela and reviewed the relevant images. Following my extensive edits, I agree with the clinical history, physical examination, and management plan detailed inthe above note. I have personally discussed the diagnosis and management with the patient and family. The total [id number] time spent on this visit was greater than 30 minutes, with the majority (>50%) of the time spent in counseling, discussing pathology and management options, and coordinationof care. Junior Santiago MD * Carlos Steen MD - 06/04/2022 11:30 AM EST Chief Complaint / Reason for Visit : Back pain, leg pain HPI: Genny Varela is a 71 year old female returning to clinic to discuss her symptoms. She still suffers from debilitating back pain as well as left > right leg pain. I brief, she was originally slated to undergo surgery but developed severe chest pain which prompted bypass surgery. This was done in November of 2020. She reports she has recovered relatively well from this. She takes aspirin for anticoagulation. She is set to undergo L4-S1 PSIF with decompression/TLIF on 06/21/2022. She has OPAC tomorrow. Medications: Outpatient Medications Prior to Visit Medication Sig Dispense Refill aspirin 81 MG Chew Tab chewable tablet Chew 1 tablet daily. chlorthalidone 25 MG tablet Take 25 mg by mouth daily every morning. Klor-Con M20 20 MEQ Tab CR tablet Take 20 mEq by mouth daily. labetalol 200 MG tablet pantoprazole [address] tablet DR Take 40 mg by mouth daily. pravastatin 40 MG tablet TAKE 2 TABLETS BY MOUTH EVERY EVENING rosuvastatin 20 MG tablet traMADol 50 MG tablet valsartan 320 MG tablet Take 320 mg by mouth daily. No facility-administered medications prior to visit. Physical Exam: General: Vitals: 06/04/22 1234 Weight: 60.7 kg (133 lb 12.8 oz) Height: 1.524 m (5') No acute distress Psych: A+Ox3, Affect is appropriate Gait: Antalgic gait Neuro: Lower extremity (R/L): hip flexors R 5/5, L 5/5, quadriceps R 5/5, L 5/5, anterior tibialis R 5/5, L 5/5, EHL R 5/5 L 5/5, hamstrings R 5/5, L 5/5, gastrocsoleus R 5/5, L 5/5. Reflexes (R/L): Patellar R +1 / L +1, Achilles deep tendon R +1 / L +1. Clonus (R/L): 0/0 Straight leg raise (R/L): Neg/Neg Sensation to light touch in the upper and lower extremities are intact. Imaging Independent review X-ray, CT and MRI of the lumbar spine obtained in October of 2020 demonstrates evidence of Degenerative scoliosis with spondylolisthesis L4-L5 with stenosis L4-S1 Plan: The natural history and course of the symptomatology of Ms Varela was discussed in detail with the patient. I answered all questions regarding the mode of onset, pathophysiology, symptoms, imaging findings, treatment options (both non- operative and operative) regarding her diagnosis. We again reviewed the surgical plan for an L4-S1 PSIF with decompression/TLIF. Risks/benefits and typical recovery course reviewed. She would like to proceed with surgery. she will be seen in OPAC clinic tomorrow. Follow up for surgery on 06/21/2022. Plan of care discussed. All questions answered. The patient verbalized understanding of the disease process and agreed to the treatment plan formulated for this visit. Carlos Steen MD Orthopaedic Surgery Spine Fellow [facility] History of Present illness Narrative* Junior Santiago MD - 01/08/2022 2:15 PM EDT Orthopaedic Surgery Attending (Spine) I have personally seen and examined Genny Varela and reviewed the relevant images. Following my extensive edits, I agree with the clinical history, physical examination, and management plan detailed inthe above note. I have personally discussed the diagnosis and management with the patient and family. The total [id number] time spent on this visit was greater than 30 minutes, with the majority (>50%) of the time spent in counseling, discussing pathology and management options, and coordinationof care. L4-S1 PSF with TLIF Junior Santiago MD * Chadd Barber MD - 01/08/2022 2:15 PM EDT ORTHOPAEDIC SURGERY SPINE FOLLOW-UP VISIT HPI: Patient is a 71-year-old female who presents for repeat evaluation of chronic low back pain with lumbar stenosis and neurogenic claudication. Patient was last evaluated in clinic on October 30, 2020 when it was explained that she would be a potential operative candidate for lumbar decompression fusion. Patient was referred to [facility] for preoperative clearance. Unfortunately, she subsequently developed severe chest pain which prompted bypass surgery. This was done in November of 2020. She reports she has recovered relatively well from this. She takes aspirin for anticoagulation. Patient reports continued back and lower extremity discomfort. She presents today to discuss potential operative plan. Past medical history:I have reviewed and confirmed the past medical history in the chart. Medications: reviewed medication list in the chart Allergies: reviewed allergy section in the chart Review of Systems: Negative for chest pain and shortness of breath Review of all other systems is negative EXAM: Blood pressure 143/68, pulse 82, height 1.524 m (5'), weight 63 kg (139 lb), SpO2 96 %, not currently . This is a well developed/well nourished 71 y.o.. y/o female, who does appear their stated age and was cooperative today in the office. Is alert, oriented x 3. There were no gait deficits observed. Spine Exam No skin lesions, ulcers noted. No visual asymmetry or rotation in cervicothoracolumbosacral spine noted. Cervicothoracolumbosacral spine demonstrates tenderness palpation over the lumbar spine and paraspinal musculature. Range of motion of the cervical spine is full in flexion, extension, lateral bending and rotation without pain. Range of motion of the lumbar spine is limited in flexion, extension, lateral bending, and rotationwith pain. RUE: 09/06 D/B/T/Wrst ext/Wrst flx/FF/FE/HI LUE: 09/06 D/B/T/Wrt ext/Wrst flx/FF/FE/HI RLE: 09/06 IP/H/Q/DF/PF/EHL LLE: 09/06 IP/H/Q/DF/PF/EHL Sensation intact to light touch and pinprick: BUE: C5-T1 BLE: L1-S1 2+ reflexes in BUE (biceps, triceps, brachioradialis) 2+ reflexes in BLE (patella, achilles) Negative Henry's BUE No clonus Babinski downgoing Seated SLR negative Toes/fingers warm, well perfused. IMAGING: X-ray, CT and MRI of the lumbar spine obtained in October of 2020 demonstrates evidence of Degenerative scoliosis with spondylolisthesis L4-L5 with stenosis L4-S1 Assessment/Plan: A long discussion was had with the patient and her family regarding the diagnosis of lumbar stenosis with neurogenic claudication and available treatment options. She does have evidence of degenerative scoliosis, but we will plan for more conservative approach given her claudicatory symptoms. We will plan for an L4-S1 posterior spinal fusion with TLIF at L4-5 and L5-S1. Patient will require OPAC clearance for the operative procedure. Patient is in agreement this plan and will like to proceed forward. All questions were answered. Chadd Barber MD Orthopaedic Surgery Pager: [phone] [facility] History of Present illness Narrative* Lori James, MACHINE ICER - 11/13/2020 10:51 AM EDT Physical Therapy Facility/Department: [facility] Daily Treatment Note NAME: Genny Varela : 1950 Date of Service: 11/13/2020 Discharge Recommendations: Home with assist PRN PT Equipment Recommendations Equipment Needed: No Other: pt states that she has a FWW that she can use at home Assessment Body structures, Functions, Activity limitations: Decreased functional mobility ;Decreased ADL status;Decreased endurance;Decreased balance Assessment: Pt at SBA to supervision level for all mobility. Compliant with sternal precautions. Ptdid better with using FWW diuring ambulation than without device. Less standing rest breaks needed with use of FWW than without device. Pt progressing toward all PT goals. Recommend home with PRN assist at discharge. Discussed change in recommendation with PT. Treatment Diagnosis: CABG x 5 on 11/08/20 REQUIRES PT FOLLOW UP: Yes Activity Tolerance Activity Tolerance: Patient Tolerated treatment well Patient Diagnosis(es): The primary encounter diagnosis was S/P CABG (coronary artery bypass graft).Diagnoses of Stress hyperglycemia, Prediabetes, and Coronary artery disease of [place] artery of [place] heart with stable angina pectoris (HCC) were also pertinent to this visit. has a past medical history of Essential hypertension, Gastroesophageal reflux disease without esophagitis, and Other hyperlipidemia. has no past surgical history on file. Restrictions Restrictions/Precautions Restrictions/Precautions: Cardiac, Fall Risk Required Braces or Orthoses?: No Position Activity Restriction Sternal Precautions: No Pushing, No Pulling, 5# Lifting Restrictions Other position/activity restrictions: IV lines, tele Subjective General Chart Reviewed: Yes Family / Caregiver Present: No Subjective Subjective: Pt sitting up in the chair, agrees to PT. Pain Screening Patient Currently in Pain: Yes Pain Assessment Pain Assessment: 0-10 Pain Level: 3 Pain Type: Chronic pain Pain Location: Back Vital Signs Patient Currently in Pain: Yes Orientation Orientation Overall Orientation Status: Within Normal Limits Cognition Cognition Overall Cognitive Status: WNL Objective Bed mobility Rolling to Right: Stand by assistance Supine to Sit: Stand by assistance Sit to Supine: Stand by assistance Scooting: Stand by assistance Comment: via log roll technique Transfers Sit to Stand: Stand by assistance Stand to sit: Stand by assistance Comment: from EOB and chair with sternal precautions Ambulation Ambulation?: Yes WB Status: Sternal precautions More Ambulation?: Yes Ambulation 1 Surface: level tile Device: No Device Assistance: Stand by assistance Distance: 50 feet x 2 Ambulation 2 Surface - 2: level tile Device 2: Rolling Walker Assistance 2: Supervision Distance: 100 feet x 2 Stairs/Curb Stairs?: Yes Stairs # Steps : 4 Rails: Left ascending Device: No Device Assistance: Stand by assistance Exercises Upper Extremity: P&C exercises # 1-9 x 10 reps each Comments: I.S. 500 mL G-Code AM-PAC Score Goals Short term goals Time Frame for Short term goals: 2 weeks Short term goal 1: Perform bed mobility Indep with following sternal precautions- NOT MET Short term goal 2: Perform transfers Indep with following sternal precautions- NOT MET Short term goal 3: Ambulate 100 ft with LRD and Mod Indep- NOT MET Short term goal 4: Perform 2 steps +1 hand rail Supervision- NOT MET Short term goal 5: IS: >1000mL- NOT MET Patient Goals Patient goals : To go to rehab Plan Plan Times per week: 5-7 Times per day: Daily Plan weeks: 2 Specific instructions for Next Treatment: P&C's Current Treatment Recommendations: Strengthening, Transfer Training, Endurance Training, ROM, ADL/Self-care Training, Balance Training, IADL Training, Gait Training, Functional Mobility Training, Stair training, Safety Education & Training, Equipment Evaluation, Education, & procurement, Patient/Caregiver Education & Training Safety Devices Type of devices: Left in chair, Call light within reach, Nurse notified, All fall risk precautions in place Restraints Initially in place: No Therapy Time Individual Concurrent Group Co-treatment Time In 0950 Time Out 1019 Minutes 29 Timed Code Treatment Minutes: (GT, TP) *PPE per facility policy used during session* Pt wore mask while in [place]. Lori James, MACHINE ICER * Ronen Hein, STARTER CUP POWDER MIXER - PERFORMANCE REPORTER - 11/13/2020 5:33 AM EDT Images from the original note were not included. Cardiothoracic Surgery Progress Note PATIENT NAME: Genny Varela TODAY'S DATE: 11/13/2020 Surgery/Procedure: 11/08/20: CABGx5 (TAO-LAD, SVG-oM, SVG-pda, SVG-LV artery, SVG-ramus), BLE EVH Interval History: POD#5 Vs HTN overnight 170's - labs WNL - CXR pending - Last recorded/verified vitals in [facility] BP (!) 173/95 Pulse 109 Temp 98 F (36.7 C) (Oral) Resp 20 Ht 5' (1.524 m) Wt 155 lb 6.8 oz (70.5 kg) SpO2 99% BMI 30.35 kg/m Recent Labs 11/11/20 0024 11/12/20 0111 11/13/20 0413 WBC 7.2 8.5 7.6 HGB 8.9* 9.2* 9.7* PLT 120* 189 223 NA 136 139 138 K 3.8 3.8 4.0 CREATININE 0.65 0.67 0.52 Current Outpatient Medications Medication Instructions carisoprodol (SOMA) 350 mg, Oral, 2 TIMES DAILY PRN chlorthalidone (HYGROTON) 25 mg, Oral, DAILY labetalol (NORMODYNE) 100 mg, Oral, 2 TIMES DAILY pantoprazole (PROTONIX) 40 mg, Oral, DAILY pravastatin (PRAVACHOL) 40 mg, Oral, DAILY traMADol (ULTRAM) 50 MG tablet Take 1 or 2 tablets by mouth every 6 hours PRN moderate pain - max 5tablets a day valsartan (DIOVAN) 320 mg, Oral, DAILY ASSESSMENT/PLAN: Patient Active Problem List Diagnosis Code Coronary artery disease of [place] artery of [place] heart with stable angina pectoris (HCC) I25.118 Prediabetes R73.03 Stress hyperglycemia R73.9 S/P CABG (coronary artery bypass graft) Z95.1 ASSESSMENT/PLAN: CAD s/p CABGx5- ASA HTN-Valsartan, clorthalidone, labetalol at home-cont metoprolol HLD- change to crestor GERD- PPI Stress hyperglycemia/prediabetes- Home Going Endocrine Rx Recommendations- none Blood loss anemia-likely reactive, no s/s of bleeding-monitor ICU delirium-resolved Post-op AF- Amiodarone Loading - No OAC - rate control with BB Dispo: Discharge later today home with close follow up Cardiac Core Medications: ASA, Statin and BB Post operative pulm management: Normal Post-Operative Course Lines: EF: 11/03 72% Blood Conservation: None noted in postoperatively period. DVT prophylaxis: TEDs, SCDs and Lovenox Treatment Team: Primary Care Provider: Elroy Weiss Cardiology:Dr. Costello CCM:Dr. Burrows Endocrinology:Dr. Garza Disclaimer INFORMED CONSENT:The nature and purpose of the proposed treatment or procedure have been discussed.The risks and benefits of the proposed treatment or procedures have been reviewed. Alternatives have been reviewed in addition to the risks and benefits of not receiving treatments or undergoing procedures. Pursuant to this discussion, the patient agrees to undergo the proposed treatment or procedure. Captured images seen in this note from are not a substitute for a comprehensive interpretation of the entire data set as reflected by the interpreting physician with regard to radiology, echocardiography, and other diagnostic images. This note may have been dictated using [employer] Medical Practice Edition 2.6 and/or [employer] Voice Recognition Feature. The document was proofread, however unrecognized voice recognition cold water machine operator errors may be present. * Jamil Burrows MD - 11/12/2020 7:55 PM EDT Critical Care Progress Note 11/12/2020 7:55 PM Subjective: Admit Date: 11/03/2020 PCP: Elroy Weiss No chief complaint on file. Hospitalization Overview: 70yo WF w/ CAD, HTN, HPL, chronic pain (tramadol & muscle relaxant per [place]), and GERD presents s/p CABGx5. Surgery was uncomplicated, bypass time 121, cross clamp 108. Interval History: POD#3 from CABGx5. Alert and oriented, VSS, out of bed, ambulating, tolerating diet. Weaned to room air. Medications: Scheduled Meds: valsartan 80 mg Oral Daily furosemide 20 mg Oral Daily potassium chloride 20 mEq Oral Daily QUEtiapine 50 mg Oral Nightly amiodarone 400 mg Oral BID metoprolol tartrate 50 mg Oral BID acetaminophen 1,000 mg Intravenous Q6H lidocaine 1 patch Transdermal Daily pantoprazole 40 mg Oral QAM AC pravastatin 40 mg Oral Nightly aspirin 81 mg Oral Daily enoxaparin 40 mg Subcutaneous Daily polyethylene glycol 17 g Oral Daily sennosides-docusate sodium 2 tablet Oral Nightly albuterol 2.5 mg Nebulization BID Continuous Infusions: sodium chloride dextrose Objective: Vitals: Temp (24hrs), Av.4 F (36.9 C), Min:98.1 F (36.7 C), Max:98.9 F (37.2 C) BP (!) 156/79 Pulse 95 Temp 98.1 F (36.7 C) Resp 20 Ht 5' (1.524 m) Wt 155 lb 6.8 oz (70.5 kg) SpO2 97% BMI 30.35 kg/m I/O:24HR INTAKE/OUTPUT: Intake/Output Summary (Last 24 hours) at 11/12/20201954 Last data filed at 11/12/2020 0521 Gross per 24 hour Intake 535 ml Output Net 535 ml 11/11 0701 - 11/12 0700 In: 1065 [P.O.:200; I.V.:865] Out: 900 [Urine:900] CVP: CVP (Mean): 297 mmHg Ventilator Settings: Vent Mode: AC/VC+ Rate Set: 12 bmp Vt Ordered: 360 mL Pressure Support: 0 cmH20 PEEP/CPAP: 8 FiO2 : 50 % Physical Exam General Appearance: [x]WDWN []Obese []Cachectic []Thin []ill Skin: Temperature [x]Warm []Cool / Rash []Yes [x]No / Tattoo(s) []Yes []No Heent: Pupils round and react [x]Yes []No Sclera []Icteric []Non-Icteric Conjunctiva []Injected [x]Non-Injected / Pinnae []Normal []Other/ Dentitian [x][place] Teeth []No [place] Teeth []Dentures Oral Mucosa [][place] []Moist []Dry/ Oral ETT []Present [x]Absent Neck: Trachea midline [x]Yes []No/ Thyromegaly []Yes [x]No/ Crepitus []Present [x]Absent /Jvd []Present [x]Absent / []supple Lungs: [x]Clear []Crackles []Wheezes [][place] / Respiratory effort []Labored [x]Non-Labored Heart: [x]RRR []Irregularly Irregular []murmur present []murmur absent/ Peripheral Edema [x]Absent []Present Abdomen: [x]Soft Bowel Sounds []Present []Absent []Diminished []Hyperactive []Hypoactive []Tender [x]Non-Tender []Distended [x]Non-distended / Hernia []Present []Absent []Unable to assess due to body habitus/ Organomegaly []Absent []Present []Unable to assess due to body habitus/ []Scar Extremities: Cyanosis []Present [x]Absent/ HERRON ([x]RUE [x]RLE [x]LUE [x]LLE) Neurologic: [place] []Yes []No Corneal reflexes []Present []Absent / Plantar reflexes []Up []Down []Absent / Withdraws to tactile []Yes []No/ Follows Commands [x]Yes []No []Unresponsive to verbal Psych: Alert [x]yes []no Oriented []x0 []x1 []x2 [x]x3 / Affect []Normal []Flat []Aggitated [x]Calm []Sedated []NAD []anxious BMP: Recent Labs 11/10/20 0006 11/11/20 0024 11/12/20 0111 NA 133* 136 139 K 4.3 3.8 3.8 CL 104 109* 109* CO2 21* 21* 24 BUN 30* 27* 26* CREATININE 0.78 0.65 0.67 GLUCOSE 150* 138* 125* CALCIUM 7.8* 8.0* 8.0* MG 2.2 2.1 2.2 Ionized Calcium: Lab Results Component Value Date IONCA 4.90 11/08/2020 CBC: Recent Labs 11/11/20 0024 11/12/20 0111 WBC 7.2 8.5 HGB 8.9* 9.2* PLT 120* 189 Assessment and Plan: Active Problems: Coronary artery disease of [place] artery of [place] heart with stable angina pectoris (HCC) Prediabetes Stress hyperglycemia S/P CABG (coronary artery bypass graft) Resolved Problems: * No resolved hospital problems. * Neurological: No continuous sedative agents. Avoid benzodiazepines, consider low dose haldol for agitation/confusion overnight as needed. Promote good sleep hygiene. Mentation returned to baseline. Cardiovascular: Hemodynamically stable off vasoactive medications. Remains in NSR. Oral amiodarone. Pulmonary: Stable on room air, continue pulmonary hygiene measures. FEN/GI: No acute electrolyte disturbance. Adequate urine output. Diuresed well, now -2L for hospitalization. : Voiding spontaneously Hematologic: Hemoglobin stable. No evidence of active bleeding. Endocrine: Management per endocrinology. ID: Received perioperative antibiotics. Leukocytosis resolved. Patient afebrile. No evidence of active infection. Prophylaxis: Stress ulcer: Protonix VTE: Lovenox Invasive Lines: PIV CCM will sign off Full Code Patient seen hours Excluding procedures, the total critical care time caring for this patient with life threatening, unstable organ failure, including direct patient contact, review of medical record, management of life support systems, review of data including imaging and labs, discussions with other team members, patient's family and physicians at least 35 minutes so far today. * Es Garza MD - 11/12/2020 10:41 AM EDT Images from the original note were not included. Department of Internal Medicine Division of Endocrinology, Diabetes, & Metabolism Endocrinology Note Patient Name: Genny Varela : 1950 AGE: 70 y.o. Room/Bed: [place] [address] Admission Date: 11/03/2020 9:49 PM Consult Date: 11/09/20 Visit Date: 11/12/2020 Reason for Endocrine Consult: post op-CABG Provider/Team Requesting Consult: CCU PCP: Elroy Weiss Outpt [employer] Repairer: no ASSESSMENT: Prediabetes Stress hyperglycemia. CAD s/p CABG. PLAN: - discontinue SS insulin - no need for regular glucose monitoring - advised healthy diet; encouraged ambulation - will sign off ANTICIPATED ENDOCRINE HOME GOING RECOMMENDATIONS: Optimized for Discharge from Endocrine standpoint: yes Home Going Endocrine Rx Recommendations-- none Outpt Follow Up-- PCP Appointment request sent to Endo office Staff: No SUBJECTIVE/HPI: CHIEF COMPLAINT: No chief complaint on file. Pt is a 70 y/o female with PMH of CAD, GERD, HTN, HLD, presented to [facility] 11/02 with worsening chest pain, Urgent LHC at [place] revealed mvd, she was referred to Interventional cardiology for PCI versus CABG. Pt is now s/p CABGx5 in [facility], she was extubated this am. - no further delirium/agitation - more alert and coherent today - has bene eating well - no n/v - feels tired - ambulated to the BR - BG 118 this AM - at bedside ROS negative except for those mentioned in HPI. OBJECTIVE: Vitals: 11/12/20 0521 11/12/20 0700 11/12/20 0800 11/12/20 1004 BP: (!) 168/80 (!) 159/77 Pulse: 110 107 Resp: Temp: 98.1 F (36.7 C) TempSrc: SpO2: 100% 100% Weight: 155 lb 6.8 oz (70.5 kg) Height: Physical Exam Vitals reviewed. Constitutional: General: She is awake. She is not in acute distress. Appearance: She is well-developed. Interventions: Nasal cannula in place. HENT: Head: Normocephalic. Eyes: General: No scleral icterus. Conjunctiva/sclera: Conjunctivae normal. Neck: Thyroid: No thyromegaly. Cardiovascular: Rate and Rhythm: Normal rate and regular rhythm. Pulses: Normal pulses. Heart sounds: Normal heart sounds. No murmur heard. Comments: midsternal incision intact Pulmonary: Effort: Pulmonary effort is normal. No respiratory distress. Abdominal: General: Bowel sounds are normal. Palpations: Abdomen is soft. Tenderness: There is no abdominal tenderness. There is no guarding. Musculoskeletal: General: No swelling or deformity. Cervical back: Neck supple. Lymphadenopathy: Cervical: No cervical adenopathy. Skin: General: Skin is warm and dry. Neurological: Mental Status: She is lethargic. Psychiatric: Behavior: Behavior is cooperative. 24 hour intake/output: Intake/Output Summary (Last 24 hours) at 11/12/2020 1041 Last data filed at 11/12/2020 0521 Gross per 24 hour Intake 1065 ml Output 825 ml Net 240 ml Diet: ADULT DIET; Regular; 5 carb choices (75 gm/meal) Adult Oral Nutrition Supplement; Low Calorie/High Protein Oral Supplement Medications (as per EMR): HomeMeds: Prior to Admission medications Medication Sig Start Date End Date Taking? Authorizing Provider carisoprodol (SOMA) 350 MG tablet Take 350 mg by mouth 2 times daily as needed for Muscle spasms. Yes Historical Provider, traMADol (ULTRAM) 50 MG tablet Take 1 or 2 tablets by mouth every 6 hours PRN moderate pain - max 5tablets a day Yes Historical Provider, labetalol (NORMODYNE) 100 MG tablet Take 100 mg by mouth 2 times daily 10/05/20 Yes Historical Provider, pantoprazole (PROTONIX) 40 MG tablet Take 40 mg by mouth daily 08/01/20 Yes Historical Provider, pravastatin (PRAVACHOL) 40 MG tablet Take 40 mg by mouth daily 08/01/20 Yes Historical Provider, valsartan (DIOVAN) 320 MG tablet Take 320 mg by mouth daily 08/01/20 Yes Historical Provider, chlorthalidone (HYGROTON) 25 MG tablet Take 25 mg by mouth daily Yes Historical Provider, Scheduled Meds: valsartan 80 mg Oral Daily furosemide 20 mg Oral Daily potassium chloride 20 mEq Oral Daily QUEtiapine 50 mg Oral Nightly amiodarone 400 mg Oral BID metoprolol tartrate 50 mg Oral BID acetaminophen 1,000 mg Intravenous Q6H lidocaine 1 patch Transdermal Daily pantoprazole 40 mg Oral QAM AC pravastatin 40 mg Oral Nightly aspirin 81 mg Oral Daily enoxaparin 40 mg Subcutaneous Daily insulin lispro 0-6 Units Subcutaneous TID WC polyethylene glycol 17 g Oral Daily sennosides-docusate sodium 2 tablet Oral Nightly albuterol 2.5 mg Nebulization BID Continuous Infusions: sodium chloride dextrose PRN Meds:cyclobenzaprine, oxyCODONE OR oxyCODONE, traMADol, sodium chloride flush, sodium chloride, ondansetron, potassium chloride, potassium chloride, magnesium sulfate, calcium gluconate, glucose, dextrose, dextrose Diagnostic Workup: I reviewed pertinent Laboratory results, Radiographic results, and Other Clinical Notes at the timeof today's encounter. BMP: Recent Labs 11/10/20 0006 11/11/20 0024 11/12/20 0111 NA 133* 136 139 K 4.3 3.8 3.8 CL 104 109* 109* CO2 21* 21* 24 BUN 30* 27* 26* CREATININE 0.78 0.65 0.67 GLUCOSE 150* 138* 125* Glucose: Recent Labs 11/10/20 0815 11/10/20 1214 11/10/20 1456 11/10/20 1622 11/11/20 0915 11/11/20 1155 11/11/20 1659 11/12/20 0642 POCGLU 150* 111* 120* 133* 135* 167* 98 118* HgbA1C: No results for input(s): LABA1C in the last 72 hours. Hepatic: No results for input(s): ALKPHOS, ALT, AST, PROT, BILITOT, BILIDIR, LABALBU in the last 72hours. Lipids: No results for input(s): CHOL, TRIG, HDL, LDLCALC in the last 72 hours. Invalid input(s): LDL TSH: Lab Results Component Value Date TSH 0.271 (L) 11/04/2020 T4FREE 1.54 11/09/2020 History/Other: Past Medical History: Past Medical History: Diagnosis Date Essential hypertension Gastroesophageal reflux disease without esophagitis Other hyperlipidemia Past Surgical History: History reviewed. No pertinent surgical history. Allergy(ies): Allergies Allergen Reactions Ativan [Lorazepam] Other (See Comments) Mental status change Penicillins Rash Sulfa Antibiotics Rash Family History: History reviewed. No pertinent family history. Social History: Social History Tobacco Use Smoking status: Never Smoker Substance Use Topics Alcohol use: Not on file Drug use: Not on file I spent 25 minutes with the pt which involved more than 51% of the time in coordination of care, medical evaluation, review of records, and/or counseling of the pt regarding his/her condition/diseasestate/prognosis on the date of this note. * Jonnie Owusu, STARTER CUP POWDER MIXER - PERFORMANCE REPORTER - 11/12/2020 6:16 AM EDT Images from the original note were not included. Cardiothoracic Surgery Progress Note PATIENT NAME: Genny Varela TODAY'S DATE: 11/12/2020 Surgery/Procedure: 11/08/20: CABGx5 (TAO-LAD, SVG-oM, SVG-pda, SVG-LV artery, SVG-ramus), BLE EVH Interval History: POD#4 Hypertensive overnight. Patient's mentation is at baseline. Patient c/o poor pain control. Euvolemic on exam. Urine CX negative-discontinue ABX. Last recorded/verified vitals in [facility] BP (!) 127/57 Pulse 95 Temp 98.9 F (37.2 C) (Axillary) Resp 18 Ht 5' (1.524 m) Wt 155 lb 6.8 oz (70.5 kg) SpO2 100% BMI 30.35 kg/m Recent Labs 11/10/20 0006 11/10/20 0006 11/10/20 1417 11/11/20 0024 11/12/20 0111 WBC 9.9 < > 8.4 7.2 8.5 HGB 9.3* < > 8.5* 8.9* 9.2* PLT 128* < > 116* 120* 189 NA 133* -- -- 136 139 K 4.3 -- -- 3.8 3.8 CREATININE 0.78 -- -- 0.65 0.67 < > = values in this interval not displayed. Physical Exam GENERAL APPEARANCE: Non-toxic appearing NEUROLOGICAL: A&Ox3, following commands RESPIRATORY: No resp distress, breath sounds clear CARDIOVASCULAR: Heart tones regular, no murmur, rubs or gallops, SR ABDOMINAL: Soft, non-tender, non-distended, BSx4, +BM GENITOURINARY: Voiding s/p coleman removal SKIN: Incisions well-approximated, no redness, drainage, swelling Temporary Pacemaker Wires: no Post-operative Atrial Fibrillation: yes ASSESSMENT/PLAN: CAD s/p CABGx5- ASA HTN-Valsartan, clorthalidone, labetalol at home-cont metoprolol, start valsartan at lower dose HLD-continue pravastatin GERD-Protonix qd Stress hyperglycemia/prediabetes-endocrine following, SSI Blood loss anemia-likely reactive, no s/s of bleeding-monitor Leukocytosis-resolved Thrombocytopenia-likely reactive-monitor CXR stable elevated R diaphragm-d/c IVP diuresis ICU delirium-resolved, patient A&Ox4 Post-op AF-continue PO amio, BB Remove IJ Dispo: Discharge 1-2 days Cardiac Core Medications: ASA, Statin and BB Post operative pulm management: Normal Post-Operative Course Lines: IJ 11/08 EF: 11/03 72% Blood Conservation: None noted in postoperatively period. DVT prophylaxis: TEDs, SCDs and Lovenox Treatment Team: Primary Care Provider: Elroy Weiss Cardiology:Dr. Costello CCM:Dr. Burrows Endocrinology:Dr. Garza Disclaimer INFORMED CONSENT:The nature and purpose of the proposed treatment or procedure have been discussed.The risks and benefits of the proposed treatment or procedures have been reviewed. Alternatives have been reviewed in addition to the risks and benefits of not receiving treatments or undergoing procedures. Pursuant to this discussion, the patient agrees to undergo the proposed treatment or procedure. Captured images seen in this note from are not a substitute for a comprehensive interpretation of the entire data set as reflected by the interpreting physician with regard to radiology, echocardiography, and other diagnostic images. This note may have been dictated using [employer] Medical Practice Edition 2.6 and/or [employer] Voice Recognition Feature. The document was proofread, however unrecognized voice recognition cold water machine operator errors may be present. * Jamil Burrows MD - 11/11/2020 7:41 PM EDT Critical Care Progress Note 11/11/2020 7:42 PM Subjective: Admit Date: 11/03/2020 PCP: Elroy Weiss No chief complaint on file. Hospitalization Overview: 70yo WF w/ CAD, HTN, HPL, chronic pain (tramadol & muscle relaxant per OARRS), and GERD presents s/p CABGx5. Surgery was uncomplicated, bypass time 121, cross clamp 108. Interval History: Mental status much better this morning. Patient calm. Weaned to nasal cannula. Medications: Scheduled Meds: amiodarone 400 mg Oral BID metoprolol tartrate 50 mg Oral BID acetaminophen 1,000 mg Intravenous Q6H QUEtiapine 25 mg Oral Nightly ceFAZolin 2,000 mg Intravenous Q8H lidocaine 1 patch Transdermal Daily pantoprazole 40 mg Oral QAM AC pravastatin 40 mg Oral Nightly aspirin 81 mg Oral Daily furosemide 40 mg Intravenous BID potassium chloride 40 mEq Oral Daily enoxaparin 40 mg Subcutaneous Daily insulin lispro 0-6 Units Subcutaneous TID WC polyethylene glycol 17 g Oral Daily sennosides-docusate sodium 2 tablet Oral Nightly albuterol 2.5 mg Nebulization BID Continuous Infusions: dexmedetomidine Stopped (11/11/20 1400) sodium chloride sodium chloride dextrose Objective: Vitals: Temp (24hrs), Av.9 F (36.6 C), Min:97.5 F (36.4 C), Max:98.8 F (37.1 C) BP (!) 148/127 Pulse 117 Temp 98.8 F (37.1 C) (Axillary) Resp 18 Ht 5' (1.524 m) Wt 158 lb 4.6 oz (71.8 kg) SpO2 100% BMI 30.91 kg/m I/O:24HR INTAKE/OUTPUT: Intake/Output Summary (Last 24 hours) at 11/11/20201941 Last data filed at 11/11/2020 1700 Gross per 24 hour Intake 1658 ml Output 3000 ml Net -1342 ml 11/10 0701 - 11/11 0700 In: 1128 [I.V.:1128] Out: 3945 [Urine:3865] CVP: CVP (Mean): 297 mmHg Ventilator Settings: Vent Mode: AC/VC+ Rate Set: 12 bmp Vt Ordered: 360 mL Pressure Support: 0 cmH20 PEEP/CPAP: 8 FiO2 : 50 % Physical Exam General Appearance: []WDWN []Obese []Cachectic []Thin [x]ill Skin: Temperature [x]Warm []Cool / Rash []Yes [x]No / Tattoo(s) []Yes []No Heent: Pupils round and react [x]Yes []No Sclera []Icteric []Non-Icteric Conjunctiva []Injected [x]Non-Injected / Pinnae []Normal []Other/ Dentitian [x][place] Teeth []No [place] Teeth []Dentures Oral Mucosa [][place] []Moist []Dry/ Oral ETT []Present [x]Absent Neck: Trachea midline [x]Yes []No/ Thyromegaly []Yes [x]No/ Crepitus []Present [x]Absent /Jvd []Present [x]Absent / []supple Lungs: [x]Clear [x]Crackles []Wheezes [][place] / Respiratory effort [x]Labored []Non-Labored Heart: [x]RRR []Irregularly Irregular []murmur present []murmur absent/ Peripheral Edema [x]Absent []Present Abdomen: [x]Soft Bowel Sounds []Present []Absent []Diminished []Hyperactive []Hypoactive []Tender [x]Non-Tender []Distended [x]Non-distended / Hernia []Present []Absent []Unable to assess due to body habitus/ Organomegaly []Absent []Present []Unable to assess due to body habitus/ []Scar Extremities: Cyanosis []Present [x]Absent/ HERRON ([x]RUE [x]RLE [x]LUE [x]LLE) Neurologic: [place] []Yes []No Corneal reflexes []Present []Absent / Plantar reflexes []Up []Down []Absent / Withdraws to tactile []Yes []No/ Follows Commands [x]Yes []No []Unresponsive to verbal Psych: Alert [x]yes []no Oriented []x0 []x1 []x2 [x]x3 / Affect []Normal []Flat []Aggitated [x]Calm []Sedated []NAD []anxious BMP: Recent Labs 11/09/20 0253 11/10/20 0006 11/11/20 0024 NA 136 133* 136 K 4.3 4.3 3.8 CL 110* 104 109* CO2 21* 21* 21* BUN 17 30* 27* CREATININE 0.70 0.78 0.65 GLUCOSE 110* 150* 138* CALCIUM 8.1* 7.8* 8.0* MG 2.4* 2.2 2.1 Ionized Calcium: Lab Results Component Value Date IONCA 4.90 11/08/2020 CBC: Recent Labs 11/10/20 1417 11/11/20 0024 WBC 8.4 7.2 HGB 8.5* 8.9* PLT 116* 120* Assessment and Plan: Active Problems: Coronary artery disease of [place] artery of [place] heart with stable angina pectoris (HCC) Prediabetes Stress hyperglycemia S/P CABG (coronary artery bypass graft) Resolved Problems: * No resolved hospital problems. * Neurological: Precedex weaned off. Avoid benzodiazepines, consider low dose haldol for agitation/confusion overnight as needed. Promote good sleep hygiene. Mentation and agitation significantly improved today. Cardiovascular: Hemodynamically stable off vasoactive medications. Remains in NSR. Oral amiodarone. Pulmonary: Stable on 2L nasal cannula, continue pulmonary hygiene measures. FEN/GI: No acute electrolyte disturbance. Adequate urine output. Diuresed well, now -2L, likely contraction alkalosis. Now mildly tachycardic, could be from contraction alkalosis, mild intravascular depletion +/- component of reflex tachycardia with precedex being weaned off from high doses this morning. Would hold on further diuresis for now. : Voiding spontaneously Hematologic: Hemoglobin stable. No evidence of active bleeding. Endocrine: Management per endocrinology. ID: Receiving perioperative antibiotics. Leukocytosis resolved. Patient afebrile. No evidence of active infection. Antibiotics given for pyuria to cover possible UTI, management per primary. Prophylaxis: Stress ulcer: Protonix VTE: Lovenox Invasive Lines: PIV ICU will follow peripherally. Full Code Patient seen hours Excluding procedures, the total critical care time caring for this patient with life threatening, unstable organ failure, including direct patient contact, review of medical record, management of life support systems, review of data including imaging and labs, discussions with other team members, patient's family and physicians at least 35 minutes so far today. * Chantel Menon, PT - 11/11/2020 3:59 PM EDT Physical Therapy Facility/Department: [facility] Initial Assessment NAME: Genny Varela : 1950 Date of Service: 11/11/2020 Discharge Recommendations: IP Rehab PT Equipment Recommendations Equipment Needed: No Assessment Body structures, Functions, Activity limitations: Decreased functional mobility ;Decreased ADL status;Decreased endurance;Decreased balance Assessment: Pt is s/p CABG x5 on 11/08/20. Pt is limited d/t deficits listed above. Able to ambulate 60 ft with a standing rest break 1/2 way d/t fatigue and DAVIS. Desturated to 89% on 3L/min (resolved within 1 minute of seated rest afterwards). Cues for following sternal precautions. Recommend IP rehab at disch. Treatment Diagnosis: CABG x 5 on 11/08/20 Specific instructions for Next Treatment: P&C's Prognosis: Good Decision Making: Low Complexity PT Education: Goals;PT Role;Plan of Care;General Safety;Weight-bearing Education REQUIRES PT FOLLOW UP: Yes Activity Tolerance Activity Tolerance: Patient limited by endurance;Patient limited by fatigue Patient Diagnosis(es): There were no encounter diagnoses. has a past medical history of Essential hypertension, Gastroesophageal reflux disease without esophagitis, and Other hyperlipidemia. has no past surgical history on file. Restrictions Restrictions/Precautions Restrictions/Precautions: Cardiac, Fall Risk Required Braces or Orthoses?: No Position Activity Restriction Sternal Precautions: No Pushing, No Pulling, 5# Lifting Restrictions Other position/activity restrictions: IV lines, tele, and 3L/min O2. Vision/Hearing Vision: Within Functional Limits Hearing: Within functional limits Subjective General Chart Reviewed: Yes Patient assessed for rehabilitation services?: Yes Family / Caregiver Present: Yes (Dtr) Follows Commands: Within Functional Limits Subjective Subjective: Initially attempted to see pt in AM, but pt just finished transferring to chair with nursing, requesting PM session d/t fatigue. Returned later in day, pt agreeable to ambulation. Clearedby nursing. Pain Screening Patient Currently in Pain: Denies Orientation Orientation Overall Orientation Status: Within Normal Limits Social/Functional History Social/Functional History Lives With: Spouse Type of Home: House Home Layout: One level Home Access: Stairs to enter with rails Entrance Stairs - Number of Steps: 2 Bathroom Shower/Tub: Tub/Shower unit Bathroom Toilet: Standard Bathroom Equipment: Grab bars in shower Bathroom Accessibility: Accessible Home Equipment: Grab bars Receives Help From: Family ADL Assistance: Independent Homemaking Assistance: Independent Homemaking Responsibilities: Yes Ambulation Assistance: Independent Transfer Assistance: Independent Active Junior Database Administrator: Yes Mode of Transportation: Car Occupation: Retired Additional Comments: Has not been in a nursing facility in the last 14 days. Cognition Cognition Overall Cognitive Status: WNL Arousal/Alertness: Appropriate responses to stimuli Following Commands: Follows one step commands consistently Attention Span: Appears intact Safety Judgement: Good awareness of safety precautions Insights: Fully aware of deficits Initiation: Does not require cues Sequencing: Does not require cues Cognition Comment: Had sitter present d/t pt pulling at lines yesterday and being agitated. Currently, pt is pleasant and appropriate all throughout (sitter dismissed by nursing at end of session) Objective Observation/Palpation Observation: Pleasant and cooperative. AROM RLE (degrees) RLE AROM: WNL AROM LLE (degrees) LLE AROM : WNL Strength RLE Strength RLE: WFL Comment: 4/5 for knee flexion and extension and ankle DF Strength LLE Strength LLE: WFL Comment: 4/5 for knee flexion and extension and ankle DF Tone RLE RLE Tone: Normotonic Tone LLE LLE Tone: Normotonic Motor Control Gross Motor?: WNL Bed mobility Comment: NT- pt in chair to start and requesting to return to chair. Transfers Sit to Stand: Contact guard assistance Stand to sit: Contact guard assistance Stand Pivot Transfers: Contact guard assistance Comment: Cues for following sternal precautions and using sternal pillow for sit>stand. Ambulation Ambulation?: Yes WB Status: Sternal precautions Ambulation 1 Surface: level tile Device: Rolling Walker Other Apparatus: O2 Assistance: Contact guard assistance Gait Deviations: Slow Narda Distance: 30 ft x 2 with standing rest break inbetween. Comments: Nezie cart used for rhiannon 3L/min supplemental O2 and for UE assist for steadiness. Increased leg weakness and DAVIS upon returning to room with increased fatigue. SpO2 89% on 3L/min, resolved to 95% on 3L.min within 1 minute of seated rest. Balance Posture: Fair Sitting - Static: Good Sitting - Dynamic: Good;- Standing - Static: Fair;+ Standing - Dynamic: Fair;+ Comments: Able to sit upsupported on recliner chair Supervision. CGA for standing balance d/t pt reported fatigue and increasing leg weakness. Exercises Heelslides: x10 Bilat LE's Knee Long Arc Quad: x10 Bilat LE's Ankle Pumps: and circles x 10 Bilat LE's ea direction Upper Extremity: Elbow flex/ext x 10 Bilat UE's Comments: IS 2x5: 250-500 mL Plan Plan Times per week: 5-7 Times per day: Daily Plan weeks: 2 Specific instructions for Next Treatment: P&C's Current Treatment Recommendations: Strengthening, Transfer Training, Endurance Training, ROM, ADL/Self-care Training, Balance Training, IADL Training, Gait Training, Functional Mobility Training, Stair training, Safety Education & Training, Equipment Evaluation, Education, & procurement, Patient/Caregiver Education & Training Safety Devices Type of devices: Left in chair, Call light within reach, Gait belt, Nurse notified (Initially had sitter, dismissed by nursing at end of session d/t improved mentation and safety awareness compared to yesterday.) Restraints Initially in place: No G-Code OutComes Score AM-PAC Score AM-PAC Inpatient Mobility Raw Score : 15 (11/11/201542) AM-PAC Inpatient T-Scale Score : 39.45 (11/11/201542) Mobility Inpatient CMS 0-100% Score: 57.7 (11/11/201542) Mobility Inpatient CMS G-Code Modifier : CK (11/11/201542) Goals Short term goals Time Frame for Short term goals: 2 weeks Short term goal 1: Perform bed mobility Indep with following sternal precautions Short term goal 2: Perform transfers Indep with following sternal precautions Short term goal 3: Ambulate 100 ft with LRD and Mod Indep Short term goal 4: Perform 2 steps +1 hand rail Supervision Short term goal 5: IS: >1000mL Patient Goals Patient goals : To go to rehab Therapy Time Individual Concurrent Group Co-treatment Time In 1435 Time Out 1500 Minutes 25 Timed Code Treatment Minutes: 8 Minutes (1xgait) Patient s Physical Therapy Plan of Care supervision is transferred to [facility] Rehab Department Physical Therapist. PT wore surgical mask and gloves throughout entire session with patient. Chantel Menon PT * Jonnie Owusu APRN - CNP - 11/11/2020 12:35 PM EDT Images from the original note were not included. Cardiothoracic Surgery Interval Note PATIENT NAME: Genny Varela : 1950 (70 y.o.) TODAY'S DATE: 11/11/2020 Interval History: Chest tubes assessed: no air leak, subcutaneous air noted. Chest tubes removed without difficulty and dressing applied. Patient tolerated well. Patient and nurse educated on possible complications toobserve for. Will continue to monitor. * Es Garza MD - 11/11/2020 10:54 AM EDT Images from the original note were not included. Department of Internal Medicine Division of Endocrinology, Diabetes, & Metabolism Endocrinology Note Patient Name: Genny Varela : 1950 AGE: 70 y.o. Room/Bed: [place] [address] Admission Date: 11/03/2020 9:49 PM Consult Date: 11/09/20 Visit Date: 11/11/2020 Reason for Endocrine Consult: post op-CABG Provider/Team Requesting Consult: CCU PCP: Elroy Weiss Outpt [employer] Repairer: no ASSESSMENT: Prediabetes Stress hyperglycemia. CAD s/p CABG. PLAN: - continue Humalog SS - no need for scheduled insulin at this time - continue blood glucose monitoring - will DC BG checks if Bg remain stable now that pt is starting to eat - patient unlikely require any pharmacotherapy on discharge for hyperglycemia ANTICIPATED ENDOCRINE HOME GOING RECOMMENDATIONS: Optimized for Discharge from Endocrine standpoint: No Home Going Endocrine Rx Recommendations-- Will likely not require any therapy for hyperglycemia Outpt Follow Up-- PCP Appointment request sent to Endo office Staff: No SUBJECTIVE/HPI: CHIEF COMPLAINT: No chief complaint on file. Pt is a 70 y/o female with PMH of CAD, GERD, HTN, HLD, presented to [facility] 11/02 with worsening chest pain, Urgent LHC at [place] revealed mvd, she was referred to Interventional cardiology for PCI versus CABG. Pt is now s/p CABGx5 in [facility], she was extubated this am. - had some delirium/agitation; MS is improving - pt had postop AF; on amio drip - started eating this AM; tolerated diet so far - no n/v - some SOB - BG 135 this AM - at bedside ROS negative except for those mentioned in HPI. OBJECTIVE: Vitals: 11/11/20 0900 11/11/20 0918 11/11/20 1000 11/11/20 1017 BP: 128/65 139/71 (!) 140/71 Pulse: 80 83 78 Resp: 18 26 Temp: TempSrc: SpO2: 98% 100% 100% Weight: Height: Physical Exam Vitals reviewed. Constitutional: General: She is awake. She is not in acute distress. Appearance: She is well-developed. Interventions: Nasal cannula in place. HENT: Head: Normocephalic. Eyes: General: No scleral icterus. Conjunctiva/sclera: Conjunctivae normal. Neck: Thyroid: No thyromegaly. Cardiovascular: Rate and Rhythm: Normal rate and regular rhythm. Pulses: Normal pulses. Heart sounds: Normal heart sounds. No murmur heard. Comments: midsternal incision intact Pulmonary: Effort: Pulmonary effort is normal. No respiratory distress. Abdominal: General: Bowel sounds are normal. Palpations: Abdomen is soft. Tenderness: There is no abdominal tenderness. There is no guarding. Musculoskeletal: General: No swelling or deformity. Cervical back: Neck supple. Lymphadenopathy: Cervical: No cervical adenopathy. Skin: General: Skin is warm and dry. Neurological: Mental Status: She is lethargic. Psychiatric: Behavior: Behavior is cooperative. 24 hour intake/output: Intake/Output Summary (Last 24 hours) at 11/11/2020 1054 Last data filed at 11/11/2020 0800 Gross per 24 hour Intake 1128 ml Output 3795 ml Net -2667 ml Diet: ADULT DIET; Regular; 5 carb choices (75 gm/meal) Adult Oral Nutrition Supplement; Low Calorie/High Protein Oral Supplement Medications (as per EMR): HomeMeds: Prior to Admission medications Medication Sig Start Date End Date Taking? Authorizing Provider carisoprodol (SOMA) 350 MG tablet Take 350 mg by mouth 2 times daily as needed for Muscle spasms. Yes Historical Provider, traMADol (ULTRAM) 50 MG tablet Take 1 or 2 tablets by mouth every 6 hours PRN moderate pain - max 5tablets a day Yes Historical Provider, labetalol (NORMODYNE) 100 MG tablet Take 100 mg by mouth 2 times daily 10/05/20 Yes Historical Provider, pantoprazole (PROTONIX) 40 MG tablet Take 40 mg by mouth daily 08/01/20 Yes Historical Provider, pravastatin (PRAVACHOL) 40 MG tablet Take 40 mg by mouth daily 08/01/20 Yes Historical Provider, valsartan (DIOVAN) 320 MG tablet Take 320 mg by mouth daily 08/01/20 Yes Historical Provider, chlorthalidone (HYGROTON) 25 MG tablet Take 25 mg by mouth daily Yes Historical Provider, Scheduled Meds: amiodarone 400 mg Oral BID acetaminophen 1,000 mg Intravenous Q6H QUEtiapine 25 mg Oral Nightly ceFAZolin 2,000 mg Intravenous Q8H lidocaine 1 patch Transdermal Daily metoprolol tartrate 25 mg Oral BID pantoprazole 40 mg Oral QAM AC pravastatin 40 mg Oral Nightly aspirin 81 mg Oral Daily furosemide 40 mg Intravenous BID potassium chloride 40 mEq Oral Daily enoxaparin 40 mg Subcutaneous Daily insulin lispro 0-6 Units Subcutaneous TID WC mupirocin Nasal BID polyethylene glycol 17 g Oral Daily sennosides-docusate sodium 2 tablet Oral Nightly albuterol 2.5 mg Nebulization BID Continuous Infusions: dexmedetomidine 0.8 mcg/kg/hr (11/11/20 0815) sodium chloride sodium chloride dextrose PRN Meds:hydrALAZINE, sodium chloride flush, sodium chloride, ondansetron, potassium chloride, potassium chloride, magnesium sulfate, calcium gluconate, glucose, dextrose, dextrose Diagnostic Workup: I reviewed pertinent Laboratory results, Radiographic results, and Other Clinical Notes at the timeof today's encounter. BMP: Recent Labs 11/09/20 0253 11/10/20 0006 11/11/20 0024 NA 136 133* 136 K 4.3 4.3 3.8 CL 110* 104 109* CO2 21* 21* 21* BUN 17 30* 27* CREATININE 0.70 0.78 0.65 GLUCOSE 110* 150* 138* Glucose: Recent Labs 11/09/20 1313 11/09/20 1639 11/09/20 2229 11/10/20 0815 11/10/20 1214 11/10/20 1456 11/10/20 1622 11/11/20 0915 POCGLU 118* 181* 153* 150* 111* 120* 133* 135* HgbA1C: No results for input(s): LABA1C in the last 72 hours. Hepatic: No results for input(s): ALKPHOS, ALT, AST, PROT, BILITOT, BILIDIR, LABALBU in the last 72hours. Lipids: No results for input(s): CHOL, TRIG, HDL, LDLCALC in the last 72 hours. Invalid input(s): LDL TSH: Lab Results Component Value Date TSH 0.271 (L) 11/04/2020 T4FREE 1.54 11/09/2020 History/Other: Past Medical History: Past Medical History: Diagnosis Date Essential hypertension Gastroesophageal reflux disease without esophagitis Other hyperlipidemia Past Surgical History: History reviewed. No pertinent surgical history. Allergy(ies): Allergies Allergen Reactions Penicillins Rash Sulfa Antibiotics Rash Family History: No family history on file. Social History: Social History Tobacco Use Smoking status: Never Smoker Substance Use Topics Alcohol use: Not on file Drug use: Not on file I spent 25 minutes with the pt which involved more than 51% of the time in coordination of care, medical evaluation, review of records, and/or counseling of the pt regarding his/her condition/diseasestate/prognosis on the date of this note. * Jonnie Owusu APRN - PERFORMANCE REPORTER - 11/11/2020 6:51 AM EDT Images from the original note were not included. Cardiothoracic Surgery Progress Note PATIENT NAME: Genny Varela TODAY'S DATE: 11/11/2020 Surgery/Procedure: 11/08/20: CABGx5 (TAO-LAD, SVG-oM, SVG-pda, SVG-LV artery, SVG-ramus), BLE EVH Interval History: POD#3 VSS overnight-hypertensive when agitated. Patient remains oriented to self only. Sitter reports she slept more than the previous night. Prophylactic ABX started yesterday- urine cx pending. I&Os: CT output: L-30 //MS-30// R-10 UO/24hrs: 3525 Fluid balance for stay: -2.3L Last recorded/verified vitals in [facility] BP (!) 113/59 Pulse 75 Temp 97.5 F (36.4 C) (Oral) Resp 26 Ht 5' (1.524 m) Wt 158 lb 4.6 oz (71.8 kg) SpO2 94% BMI 30.91 kg/m Recent Labs 11/09/20 0253 11/09/20 0253 11/10/20 0006 11/10/20 1417 11/11/20 0024 WBC 14.4* < > 9.9 8.4 7.2 HGB 9.4* < > 9.3* 8.5* 8.9* PLT 141 < > 128* 116* 120* NA 136 -- 133* -- 136 K 4.3 -- 4.3 -- 3.8 CREATININE 0.70 -- 0.78 -- 0.65 < > = values in this interval not displayed. Physical Exam GENERAL APPEARANCE: Non-toxic appearing NEUROLOGICAL: A&Ox1 RESPIRATORY: No resp distress, diminished bilateral lower lobes CARDIOVASCULAR: Heart tones regular, no murmur, rubs or gallops, SR ABDOMINAL: Soft, non-tender, non-distended, BSx4 GENITOURINARY: [place] SKIN: Incisions well-approximated, no redness, drainage, swelling Temporary Pacemaker Wires: no Post-operative Atrial Fibrillation: yes Current Outpatient Medications Medication Instructions carisoprodol (SOMA) 350 mg, Oral, 2 TIMES DAILY PRN chlorthalidone (HYGROTON) 25 mg, Oral, DAILY labetalol (NORMODYNE) 100 mg, Oral, 2 TIMES DAILY pantoprazole (PROTONIX) 40 mg, Oral, DAILY pravastatin (PRAVACHOL) 40 mg, Oral, DAILY traMADol (ULTRAM) 50 MG tablet Take 1 or 2 tablets by mouth every 6 hours PRN moderate pain - max 5tablets a day valsartan (DIOVAN) 320 mg, Oral, DAILY ASSESSMENT/PLAN: Patient Active Problem List Diagnosis Code Coronary artery disease of [place] artery of [place] heart with stable angina pectoris (HCC) I25.118 Prediabetes R73.03 Stress hyperglycemia R73.9 S/P CABG (coronary artery bypass graft) Z95.1 CAD s/p CABGx5- ASA HTN-Valsartan, clorthalidone, labetalol at home-cont BB HLD-continue pravastatin GERD-Protonix qd Stress hyperglycemia-endocrine following, ACHS accuchecks Blood loss anemia-likely reactive, no s/s of bleeding-monitor Leukocytosis-resolved Thrombocytopenia-likely reactive-monitor CXR stable elevated R diaphragm Post-op delirium/agitation: continue precedex gtt, sitter at bedside, delirium protocol Post-op AF-transition amio gtt to PO Remove coleman Cardiac Core Medications: ASA, Statin and BB Post operative pulm management: Normal Post-Operative Course Lines: IJ 11/08, coleman 11/08 EF: 7/2 72% Blood Conservation: None noted in postoperatively period. DVT prophylaxis: TEDs, SCDs and Lovenox Treatment Team: Primary Care Provider: Elroy Weiss Cardiology:Dr. Costello CCM:Dr. Burrows Endocrinology:Dr. Garza Disclaimer INFORMED CONSENT:The nature and purpose of the proposed treatment or procedure have been discussed.The risks and benefits of the proposed treatment or procedures have been reviewed. Alternatives have been reviewed in addition to the risks and benefits of not receiving treatments or undergoing procedures. Pursuant to this discussion, the patient agrees to undergo the proposed treatment or procedure. Captured images seen in this note from are not a substitute for a comprehensive interpretation of the entire data set as reflected by the interpreting physician with regard to radiology, echocardiography, and other diagnostic images. This note may have been dictated using [employer] Edition 2.6 and/or [employer] Voice Recognition Feature. The document was proofread, however unrecognized voice recognition cold water machine operator errors may be present. * Jamil Burrows MD - 11/10/2020 8:07 PM EDT Critical Care Progress Note 11/10/2020 8:08 PM Subjective: Admit Date: 11/03/2020 PCP: Elroy Weiss No chief complaint on file. Hospitalization Overview: 70yo WF w/ CAD, HTN, HPL, chronic pain (tramadol & muscle relaxant per OARRS), and GERD presents s/p CABGx5. Surgery was uncomplicated, bypass time 121, cross clamp 108. Interval History: Agitated overnight. Started on precedex and received one time dose of ativan. Hyperventilating, agitated, confused. Medications: Scheduled Meds: acetaminophen 1,000 mg Intravenous Q6H QUEtiapine 25 mg Oral Nightly ketorolac 15 mg Intravenous Q6H ceFAZolin 2,000 mg Intravenous Q8H lidocaine 1 patch Transdermal Daily metoprolol tartrate 25 mg Oral BID pantoprazole 40 mg Oral QAM AC pravastatin 40 mg Oral Nightly aspirin 81 mg Oral Daily furosemide 40 mg Intravenous BID potassium chloride 40 mEq Oral Daily enoxaparin 40 mg Subcutaneous Daily insulin lispro 0-6 Units Subcutaneous TID WC mupirocin Nasal BID polyethylene glycol 17 g Oral Daily sennosides-docusate sodium 2 tablet Oral Nightly albuterol 2.5 mg Nebulization BID Continuous Infusions: amiodarone 0.5 mg/min (11/10/20 0916) dexmedetomidine 0.9 mcg/kg/hr (11/10/20 1705) sodium chloride sodium chloride dextrose Objective: Vitals: Temp (24hrs), Av.2 F (36.8 C), Min:98.2 F (36.8 C), Max:98.2 F (36.8 C) BP (!) 106/56 Pulse 75 Temp 98.2 F (36.8 C) (Oral) Resp 16 Ht 5' (1.524 m) Wt 158 lb 4.6 oz (71.8 kg) SpO2 99% BMI 30.91 kg/m I/O:24HR INTAKE/OUTPUT: Intake/Output Summary (Last 24 hours) at 11/10/20202007 Last data filed at 11/10/2020 1845 Gross per 24 hour Intake 501 ml Output 2294 ml Net -1793 ml 11/09 700 - 11/10 07 In: 2857 [P.O.:1090; I.V.:1767] Out: 2001 [Urine:1735] CVP: CVP (Mean): 297 mmHg Ventilator Settings: Vent Mode: AC/VC+ Rate Set: 12 bmp Vt Ordered: 360 mL Pressure Support: 0 cmH20 PEEP/CPAP: 8 FiO2 : 50 % Physical Exam General Appearance: []WDWN []Obese []Cachectic []Thin [x]ill Skin: Temperature [x]Warm []Cool / Rash []Yes [x]No / Tattoo(s) []Yes []No Heent: Pupils round and react [x]Yes []No Sclera []Icteric []Non-Icteric Conjunctiva []Injected [x]Non-Injected / Pinnae []Normal []Other/ Dentitian [x][place] Teeth []No [place] Teeth []Dentures Oral Mucosa [][place] []Moist []Dry/ Oral ETT []Present [x]Absent Neck: Trachea midline [x]Yes []No/ Thyromegaly []Yes [x]No/ Crepitus []Present [x]Absent /Jvd []Present [x]Absent / []supple Lungs: [x]Clear [x]Crackles []Wheezes [][place] / Respiratory effort [x]Labored []Non-Labored Heart: [x]RRR []Irregularly Irregular []murmur present []murmur absent/ Peripheral Edema [x]Absent []Present Abdomen: [x]Soft Bowel Sounds []Present []Absent []Diminished []Hyperactive []Hypoactive []Tender [x]Non-Tender []Distended [x]Non-distended / Hernia []Present []Absent []Unable to assess due to body habitus/ Organomegaly []Absent []Present []Unable to assess due to body habitus/ []Scar Extremities: Cyanosis []Present [x]Absent/ HERRON ([x]RUE [x]RLE [x]LUE [x]LLE) Neurologic: BELKOFSKI []Yes []No Corneal reflexes []Present []Absent / Plantar reflexes []Up []Down []Absent / Withdraws to tactile []Yes []No/ Follows Commands [x]Yes []No []Unresponsive to verbal Psych: Alert [x]yes []no Oriented []x0 []x1 [x]x2 []x3 / Affect []Normal []Flat []Aggitated []Calm []Sedated []NAD [x]anxious BMP: Recent Labs 11/08/20 0225 11/08/20 0225 11/08/20 1845 11/08/20 1852 11/09/20 0253 11/10/20 0006 NA 136 < > 140 -- 136 133* K 3.9 < > 3.1* -- 4.3 4.3 CL 103 < > 109* -- 110* 104 CO2 23 < > 22 -- 21* 21* BUN 20 < > 16 -- 17 30* CREATININE 0.60 < > 0.63 -- 0.70 0.78 GLUCOSE 134* < > 87 -- 110* 150* CALCIUM 9.2 < > 8.6 -- 8.1* 7.8* IONCA -- -- -- 4.90 -- -- MG 1.8 < > 3.7* -- 2.4* 2.2 PHOS 3.9 -- 3.3 -- -- -- < > = values in this interval not displayed. Ionized Calcium: Lab Results Component Value Date IONCA 4.90 11/08/2020 CBC: Recent Labs 11/10/20 0006 11/10/20 1417 WBC 9.9 8.4 HGB 9.3* 8.5* PLT 128* 116* Assessment and Plan: Active Problems: Coronary artery disease of [place] artery of [place] heart with stable angina pectoris (HCC) Prediabetes Stress hyperglycemia S/P CABG (coronary artery bypass graft) Resolved Problems: * No resolved hospital problems. * Neurological: Continue precedex, wean as tolerated. Avoid benzodiazepines, consider low dose haldolfor agitation/confusion overnight as needed. Promote good sleep hygiene. Likely component of ICU delirium. Cardiovascular: Hemodynamically stable off vasoactive medications. Run of afib RVR overnight. On amiodarone. NSR. Pulmonary: On venturi mask, more for patient comfort than oxygen requirements. Continue pulmonary hygiene measures. Small effusion, unamenable to thoracentesis. FEN/GI: No acute electrolyte disturbance. Adequate urine output. Creatinine stable. +1.4L, Lasix today. : Discontinue coleman Hematologic: Hemoglobin stable. No evidence of active bleeding. Endocrine: Management per endocrinology. ID: Receiving perioperative antibiotics. Leukocytosis resolved. Patient afebrile. No evidence of active infection. Antibiotics given for pyuria to cover possible UTI, management per primary. Prophylaxis: Stress ulcer: Protonix VTE: Lovenox Invasive Lines: Chest tube x3, peripheral IV, right IJ introducer. Full Code Patient seen hours Excluding procedures, the total critical care time caring for this patient with life threatening, unstable organ failure, including direct patient contact, review of medical record, management of life support systems, review of data including imaging and labs, discussions with other team members, patient's family and physicians at least 35 minutes so far today. * Nisha Akins, STARTER CUP POWDER MIXER - PERFORMANCE REPORTER - 11/10/2020 2:01 PM EDT PAGING: The Acute Pain Service providers are available via [employer]. Please reference [employer] for Pain Management Provider SALES OPERATIONS ASSOCIATE and direct all questions to the provider listed. Please send pages as urgent from 9pm-7am if they require a response. All other pages will be addressed nextday, thank you. Due to the current environment of [place] [address], PPE was worn for the duration of all face to face encounters including but not limited to an N95 in accordance with CDC and hospital guidelines. 11/10/2020 Referring Physician: Zulma Mujica MD Subjective: We have been asked to see this 70 y.o. female for postoperative pain management s/p CABGx5 11/08/20. IMAGING and labs reviewed. EKG with sinus rhythm. Patient with AF with RVR overnight. Patient agitated, started on precedex gtt. No pages overnight. PMH reviewed below, significant for: HTN Sedation score: Patient sedated Pain Severity: PAMELA Pain Location: PAMELA Pain Quality: PAMELA Aggravating Factors: PAMELA Alleviating Factors: PAMELA Social History Tobacco Use Smoking Status Never Smoker Social History Substance and Sexual Activity Alcohol Use None Social History Substance and Sexual Activity Drug Use Not on file Smoking: Never ETOH: NONE Illicit Drugs: Denies Prescription Drug Abuse: Denies Pain Management: Jimmy Bedolla family physician The patient's medical history and physical assessment, medications, allergies, patient's current medical condition, imaging, and labs were reviewed as part of this consultation. [x] Patient's Medications have been reviewed. [x] Patient's OARRS report (PDMP) have been reviewed. ORS 11/01/2020 2 10/31/2020 Carisoprodol 350 MG Tablet 56.00 28 Sc Bro [id number] [place] (2499) 0 0.56 LME [place] 10/13/2020 2 10/13/2020 Tramadol Hcl 50 MG Tablet 140.00 28 Ro Tati [id number] [place] (2499) 0 25.00 [place] 10/03/2020 2 10/03/2020 Carisoprodol 350 MG Tablet 56.00 28 Ro Tati [id number] [place] (2499) 0 0.56 [place] 09/15/2020 2 09/15/2020 Tramadol Hcl 50 MG Tablet 140.00 28 Ro Tati [id number] [place] (2499) 0 25.00 [place] 09/04/2020 2 09/04/2020 Carisoprodol 350 MG Tablet 56.00 28 Sc Bro [id number] [place] (2499) 0 0.56 [place] 08/17/2020 2 08/17/2020 Tramadol Hcl 50 MG Tablet 140.00 28 Ro Tati [id number] [place] (2499) 0 25.00 [place] 08/08/2020 2 08/08/2020 Carisoprodol 350 MG Tablet 56.00 28 Ro Tati [id number] [place] (2499) 0 0.56 [place] 08/01/2020 2 08/01/2020 Gabapentin 300 MG Capsule 84.00 28 Ro Tati [id number] [place] (2499) 0 [place] 07/25/2020 2 07/25/2020 Gabapentin 300 MG Capsule 21.00 7 Ro Tati [id number] [place] (2499) 0 [place] 07/19/2020 2 07/19/2020 Tramadol Hcl 50 MG Tablet 168.00 30 Ro Tati [id number] [place] (2499) 0 28.00 [place] 07/11/2020 2 07/11/2020 Carisoprodol 350 MG Tablet 56.00 28 Ro Tati [id number] [place] (2499) 0 0.56 LME Private [place] 06/21/2020 2 06/21/2020 Tramadol Hcl 50 MG Tablet 196.00 28 Ro Tati [id number] [place] (2499) 0 35.00 [place] 06/07/2020 2 06/07/2020 Carisoprodol 350 MG Tablet 56.00 28 Ro Tati [id number] [place] (2499) 0 0.56 [place] 05/24/2020 2 05/24/2020 Tramadol Hcl 50 MG Tablet 224.00 28 Ro Tati [id number] [place] (2499) 0 40.00 [place] 05/09/2020 2 05/09/2020 Carisoprodol 350 MG Tablet 56.00 28 Ro Tati [id number] [place] (2499) 0 0.56 LME Objective Findings: Height: 5' (152.4 cm) Weight: 158 lb 4.6 oz (71.8 kg) BMI (Calculated): 31 Vital signs: Blood pressure (!) 175/91, pulse 101, temperature 98.2 F (36.8 C), temperature source Oral, resp. rate 16, height 5' (1.524 m), weight 158 lb 4.6 oz (71.8 kg), SpO2 98 %. Lab Results Component Value Date/Time HGB 9.3 (L) 11/10/2020 12:06 AM HCT 28.1 (L) 11/10/2020 12:06 AM PLT 128 (L) 11/10/2020 12:06 AM WBC 9.9 11/10/2020 12:06 AM PROTIME 10.7 11/07/2020 08:54 AM INR 1.0 11/07/2020 08:54 AM APTT 25.4 11/07/2020 08:54 AM NA 133 (L) 11/10/2020 12:06 AM K 4.3 11/10/2020 12:06 AM BUN 30 (H) 11/10/2020 12:06 AM CREATININE 0.78 11/10/2020 12:06 AM GLUCOSE 150 (H) 11/10/2020 12:06 AM AST 67 (H) 11/03/2020 11:09 PM ALT 34 11/03/2020 11:09 PM Allergies: Penicillins and Sulfa antibiotics Past Medical History: Diagnosis Date Essential hypertension Gastroesophageal reflux disease without esophagitis Other hyperlipidemia History reviewed. No pertinent surgical history. No family history on file. Patient Active Problem List Diagnosis Coronary artery disease of [place] artery of [place] heart with stable angina pectoris (HCC) Prediabetes Stress hyperglycemia S/P CABG (coronary artery bypass graft) Review of Systems Constitutional: Negative for chills and fever. Physical Exam Vitals and nursing note reviewed. HENT: Head: Normocephalic. Pulmonary: Effort: No respiratory distress. Skin: General: Skin is warm and dry. Comments: Chest incision C/D/I Pain Management Adjuvants: 0700 --> 0700 11/08/2020 11/09/20 Scheduled Acetaminophen 2g 2 g PRN Tramadol 150 mg 50 mg Oxycodone 20 mg 60 mg Morphine 4 mg Dilaudid 7 mg 4 mg BLOCK: n/a Assessment / Pain Management Plan: 1. Acute Postsurgical chest pain s/p CABGx5 11/08/20. Patient sedated at this time 2. Opioid Tolerant/Dependent Patient prescribed Percocet 3. Constipation At risk for opioid induced constipation Patient currently receiving opioids for pain management necessitating a bowel regimen. Recommend initiating scheduled Sennakot-S 8.6/50mg, 1 tablet PO BID. Would also recommend Milk of Magnesia 400mg/5ml, administer 30mL by mouth daily PRN. LBM:NONE 4. Opioid Use Acute: Expected to be short term postop pain, see #1 OARRS reviewed for past two years. (Opioid Tolerant, Tramdol ) Reviewed and educated patient on responsible use of opioids: after surgery, it can be normal to experience pain. If it is mild and you can move about without great difficulty or discomfort, you may not need to take pain medication. It is very important to take your pain medication only as needed. Avoiding excessive or unnecessary medication, will enable you to progress your activity each day to improve your muscle tone and movement, deep breathing, digestion, circulation and your body's abilityto heal itself. Patient sedated at this time. We will sign off, please re consult our service if pateint's pain worsens or becomes uncontrolled in the future. Plan discussed with patient who appears to understand and agrees. PAGING: The Acute Pain Service providers are available via [employer]. Please reference [employer] for Pain Management Provider SALES OPERATIONS ASSOCIATE and direct all questions to the provider listed. Please send pages as urgent from 9pm-7am if they require a response. All other pages will be addressed nextday, thank you. * Es Garza MD - 11/10/2020 10:37 AM EDT Images from the original note were not included. Department of Internal Medicine Division of Endocrinology, Diabetes, & Metabolism Endocrinology Note Patient Name: Genny Varela : 1950 AGE: 70 y.o. Room/Bed: [place] [address] Admission Date: 11/03/2020 9:49 PM Consult Date: 11/09/20 Visit Date: 11/10/2020 Reason for Endocrine Consult: post op-CABG Provider/Team Requesting Consult: CCU PCP: Elroy Weiss Outpt [employer] Repairer: no ASSESSMENT: Prediabetes Stress hyperglycemia. CAD s/p CABG. PLAN: - will hold off on restarting basal insulin for now as pt received full Humalog dose for BF but didnot eat - stop scheduled Humalog - continue Humalog SS - continue blood glucose monitoring - patient unlikely require any pharmacotherapy on discharge for hyperglycemia ANTICIPATED ENDOCRINE HOME GOING RECOMMENDATIONS: Optimized for Discharge from Endocrine standpoint: No Home Going Endocrine Rx Recommendations-- Will likely not require any therapy for DM Will benefit from meter and testing supplies Outpt Follow Up-- PCP Appointment request sent to Endo office Staff: No SUBJECTIVE/HPI: CHIEF COMPLAINT: No chief complaint on file. Pt is a 70 y/o female with PMH of CAD, GERD, HTN, HLD, presented to [facility] 11/02 with worsening chest pain, Urgent LHC at [place] revealed mvd, she was referred to Interventional cardiology for PCI versus CABG. Pt is now s/p CABGx5 in [facility], she was extubated this am. - pt had postop AF - now on amio drip - she is on precedex now - plan for thora today - not eating - BG 150 this AM; received H 4 even if pt was not eating ROS negative except for those mentioned in HPI. OBJECTIVE: Vitals: 11/10/20 0839 11/10/20 0900 11/10/20 0930 11/10/20 1000 BP: (!) 97/54 (!) 98/55 (!) 100/57 Pulse: 75 74 76 Resp: 16 Temp: 98.2 F (36.8 C) TempSrc: Oral SpO2: 100% 100% Weight: Height: Physical Exam Vitals reviewed. Constitutional: General: She is sleeping. She is not in acute distress. Appearance: She is well-developed. HENT: Head: Normocephalic. Eyes: General: No scleral icterus. Conjunctiva/sclera: Conjunctivae normal. Neck: Thyroid: No thyromegaly. Cardiovascular: Rate and Rhythm: Normal rate and regular rhythm. Pulses: Normal pulses. Heart sounds: Normal heart sounds. No murmur heard. Comments: midsternal incision intact Pulmonary: Effort: Pulmonary effort is normal. No respiratory distress. Abdominal: General: Bowel sounds are normal. Palpations: Abdomen is soft. Tenderness: There is no abdominal tenderness. There is no guarding. Genitourinary: Comments: Urinary cath in place Musculoskeletal: General: No swelling or deformity. Cervical back: Neck supple. Lymphadenopathy: Cervical: No cervical adenopathy. Skin: General: Skin is warm and dry. 24 hour intake/output: Intake/Output Summary (Last 24 hours) at 11/10/2020 1037 Last data filed at 11/10/2020 0900 Gross per 24 hour Intake 2607 ml Output 1882 ml Net 725 ml Diet: ADULT DIET; Regular; 5 carb choices (75 gm/meal) Adult Oral Nutrition Supplement; Low Calorie/High Protein Oral Supplement Medications (as per EMR): HomeMeds: Prior to Admission medications Medication Sig Start Date End Date Taking? Authorizing Provider carisoprodol (SOMA) 350 MG tablet Take 350 mg by mouth 2 times daily as needed for Muscle spasms. Yes Historical Provider, traMADol (ULTRAM) 50 MG tablet Take 1 or 2 tablets by mouth every 6 hours PRN moderate pain - max 5tablets a day Yes Historical Provider, labetalol (NORMODYNE) 100 MG tablet Take 100 mg by mouth 2 times daily 10/05/20 Yes Historical Provider, pantoprazole (PROTONIX) 40 MG tablet Take 40 mg by mouth daily 08/01/20 Yes Historical Provider, pravastatin (PRAVACHOL) 40 MG tablet Take 40 mg by mouth daily 08/01/20 Yes Historical Provider, valsartan (DIOVAN) 320 MG tablet Take 320 mg by mouth daily 08/01/20 Yes Historical Provider, chlorthalidone (HYGROTON) 25 MG tablet Take 25 mg by mouth daily Yes Historical Provider, Scheduled Meds: acetaminophen 1,000 mg Intravenous Q6H QUEtiapine 25 mg Oral Nightly lidocaine 1 patch Transdermal Daily metoprolol tartrate 25 mg Oral BID pantoprazole 40 mg Oral QAM AC pravastatin 40 mg Oral Nightly aspirin 81 mg Oral Daily furosemide 40 mg Intravenous BID potassium chloride 40 mEq Oral Daily enoxaparin 40 mg Subcutaneous Daily insulin lispro 4 Units Subcutaneous TID WC insulin lispro 0-6 Units Subcutaneous TID WC mupirocin Nasal BID polyethylene glycol 17 g Oral Daily sennosides-docusate sodium 2 tablet Oral Nightly albuterol 2.5 mg Nebulization BID Continuous Infusions: amiodarone 0.5 mg/min (11/10/20915) dexmedetomidine 0.8 mcg/kg/hr (11/10/20922) sodium chloride sodium chloride dextrose PRN Meds:tiZANidine, hydrALAZINE, zolpidem, sodium chloride flush, sodium chloride, ondansetron, potassium chloride, potassium chloride, magnesium sulfate, calcium gluconate, glucose, dextrose, dextrose Diagnostic Workup: I reviewed pertinent Laboratory results, Radiographic results, and Other Clinical Notes at the timeof today's encounter. BMP: Recent Labs 11/08/20 1845 11/09/20 0253 11/10/20 0006 NA 140 136 133* K 3.1* 4.3 4.3 CL 109* 110* 104 CO2 22 * 21* BUN 16 17 30* CREATININE 0.63 0.70 0.78 GLUCOSE 87 110* 150* Glucose: Recent Labs 11/09/20 1007 11/09/20 1058 11/09/20 1156 11/09/20 1248 11/09/20 1313 11/09/20 1639 11/09/20 2229 11/10/20 0815 POCGLU 193* 161* 125* 53* 118* 181* 153* 150* HgbA1C: No results for input(s): LABA1C in the last 72 hours. Hepatic: No results for input(s): ALKPHOS, ALT, AST, PROT, BILITOT, BILIDIR, LABALBU in the last 72hours. Lipids: No results for input(s): CHOL, TRIG, HDL, LDLCALC in the last 72 hours. Invalid input(s): LDL TSH: Lab Results Component Value Date TSH 0.271 (L) 11/04/2020 T4FREE 1.54 11/09/2020 Radiology reportsas per the Radiologist Radiology: ECHO Complete 2D W Doppler W Color Result Date: 11/04/2020 TRANSTHORACIC ECHOCARDIOGRAM PATIENT: Genny Varela STUDY DATE: 11/04/2020 : 1950 AGE: 70 HT/WT: 152.4 cm (60 66.7 kg (146.7 in) lb) GENDER: F BP: 117 / 79 LOCATION: [facility] PATIENT Inpatient main STATUS: *ORDERING PHYSICIAN: * Chadd Hudson *READING PHYSICIAN: * Toni Lane *COMMERCIAL ROOFING ESTIMATOR: * Rosenda Corea MD RDCS,AE, PE, RVT INDICATIONS: MV CAD. CONCLUSIONS SUMMARY: 1. Left ventricle: The cavity size is normal. Wall thickness is normal. Systolic function is by the biplane method of disks. The estimated ejection fraction is 72%. There are no regional wall motion abnor malities. E/e' average: 4 This value generally correlates with a low(<8) wedge pressure. 2. There is a non-specific increase in the left ventricular outflow tract velocity at 2.3 m/sec. It may be due to increased contractility. There does not appear to be subaortic stenosis by the ventricular septum. 3. Right ventricle: Systolic function is normal. 4. Left atrium: The atrium is normal in size.5. Aortic valve: Mildly thickened, mildly calcified leaflets. STUDY DATA: Complete transthoracic echocardiogram. Procedure: Image quality was suboptimal. The study was technically limited due to poor acoustic window availability. Intravenous imaging enhancement (Definity) was administered to opacify the chamber. Definity lot #: [id number]. M-mode, complete 2D, complete spectral Doppler, and color flow Doppler images were acquiredand archived for permanent storage and are available for subsequent review. Study status: Routine. Patient status: Inpatient. FINDINGS LEFT VENTRICLE: The cavity size is normal. Wall thickness is normal. Systolic function is bythe biplane method of disks. The estimated ejection fraction is 72%. There are no regional wall motion abnormalities. Left ventricular diastolic function parameters are normal. E/e' average: 4 This value generally correlates with a low(<8) wedge pressure. RIGHT VENTRICLE: The cavity size is normal. Systolic function is normal. Right ventricular systolic pressure is within the normal range. VENTRICULAR SEPTUM: There is no evidence of a ventricular septal defect. LEFT ATRIUM: The atrium is normal in size. RIGHT ATRIUM: The atrium is normal in size. ATRIAL SEPTUM: Color Doppler shows no shunt. MITRAL VALVE: Structurally normal valve. Doppler: There is no regurgitation. The valve area by pressure half-time is 6.2 cm^2. The valve area (LVOT continuity) is 1.4 cm^2. The mean diastolic gradient is 1 mm Hg. The peak diastolic gradient is 5 mm Hg. AORTIC VALVE: Not well visualized. Mildly thickened, mildly calcified leaflets. Doppler: There is no stenosis. There is no regurgitation. Dimensionless index: 0.46. The valve area by the velocity-time integral method is 1.5 cm^2. The valve area index by the velocity-time integral method is 0.9 cm^2/m^2. The mean systolic gradient is 3 mm Hg. The peak systolic gradient is 6 mm Hg. The peak systolic velocity is 1.2 m/sec. TRICUSPID VALVE: Structurally normal valve. Doppler: There is trivial, less than 1+ regurgitation. PULMONIC VALVE: Structu rally normal valve. Doppler: There is trivial, less than 1+ regurgitation. AORTA: The aorta is poorly visualized and normal. PULMONARY ARTERY: Main pulmonary artery: Normal. PERICARDIUM: There is no pericardial effusion. SYSTEMIC VEINS: Not well visualized. Measurements Left ventricle Value Reference LV ID, ED (L) 2.6 cm 3.8 - 5.2 LV ID, ES (L) 1.6 cm 2.2 - 3.5 LV ID/bsa, ED (L) 1.5 cm/m^2 2.3 - 3.1 LV ID/bsa, ES (L) 1.0 cm/m^2 1.3 - 2.1 Stroke volume/bsa, 1-p A2C 52.7 ml/m^2 --------- LV end-diastolic volume, 1-p A4C (H)144 ml 48 - 140 LV end-systolic volume, 1-p A4C 43 ml 12 - 60 LV end-diastolic volume, 2-p (H) 144 ml 46 - 106 LV end-systolic volume, 2-p 41 ml 14 - 42 LV ejection fraction, 2-p 72 % 54 - 74 LV E/e', medial 4.3 --------- LVOT Value Reference LVOT ID, A-P 2.0 cm --------- LVOT mean velocity, S 0.4 m/sec --------- LVOT peak gradient, S 1 mm Hg --------- Stroke volume (SV), LVOT DP 32 ml --------- Stroke index (SV/bsa), LVOT DP 19 ml/m^2 --------- Aortic valve Value Reference Aortic valve peak velocity, S 1.2 m/sec --------- Aortic valve mean velocity, S 0.8 m/sec --------- Aortic mean gradient, S 3 mm Hg --------- Aortic peak gradient, S 6 mm Hg --------- DI 0.46 --------- Aortic valve area,VTI 1.5 cm^2 --------- Aortic valve area/bsa, VTI 0.9 cm^2/m^2 --------- Left atrium Value Reference LA volume/bsa, ES, 2-p (H) 44 ml/m^2 16 - 34 Mitral valve Value Reference Mitral E- wave peak velocity 0.6 m/sec --------- Mitral A-wave peak velocity 1.1 m/sec --------- Mitral deceleration time 160ms --------- Mitral pressure half-time 36 ms --------- Mitral mean gradient, D 1 mm Hg --------- Mitral peak gradient, D 5 mm Hg --------- Mitral E/A ratio, peak 0.5 --------- Mitral valve area, PHT,DP 6.2 cm^2 --------- Mitral valve area, LVOT continuity 1.4 cm^2 --------- Right atrium Value Reference RA area, ES, A4C 10 cm^2 10 - 18 Right ventricle Value Reference RV ID, minor axis, ED, A4C mid 1.9 cm 1.9 - 3.5 TAPSE, 2D (L) 1.5 cm 1.7 - 3.1 Legend: (L) and (H) ke values outside specified reference range. Electronically signed by Toni Corea MD 11/04/2020 12:33 Prior Signatures: XR CHEST (2 VW) Result Date: 11/04/2020 Patient Name: GENNY VARELA Diagnostic Radiology ACCESSION EXAMDATE/TIME PROCEDURE ORDERING PROVIDER [id number] 11/03/2020 23:57 EDT CR Chest PA & LAT ZULMA MUJICA CPT code 48817 Reason For Exam (CR Chest PA & LAT) Pre-op CABG Report Indication: Pre-CABG. Comparison: None. Technique: A single frontal view of chest was obtained. Findings: Trachea is mid line. The lungs are clear. No pleural effusion or pneumothorax. The cardiomediastinal silhouette isnormal. Pulmonary vasculature is normal. Atherosclerosis is evident. Impression: No acute findings.Report Dictated on --- Final --- Dictated: 11/04/2020 8:46 am Dictating Physician: MD GOMEZ TOM A Signed Date and Time: 11/04/2020 8:47 am Signed by: MD GOMEZ TOMA Transcribed Date and Time: 11/04/2020 8:46 VL PRE OP VEIN MAPPING Result Date: 11/05/2020 [facility] Bilateral LE Vein Mapping For Bypass Report Patient Genny Varela : 1950 Study11/04/2020 Name: Karen (70yrs) Date: Age: 70 Account: [id number] Gender: F Loc: BP: Ordering Physician: Peggy Henry Drafter Commercial: Aspen Velasquez RDMS, RVT Interpreting Physician: Danny Muñoz MD Location: [facility] Indications: Preop CABG. Conclusions 1. There is no evidence of superficial vein thrombosis noted inthe right great saphenous vein and left great saphenous vein. 2. Vein sizes as noted below. -------- History: Risk factors: Age over 65 years. Study data: Bilaterallower extremity vein mapping. Grayscale 2D imaging. Location: Vascular laboratory. Procedure: Images were obtained using a PolyActiva E9 vascular ultrasound machine. Vein mapping: + + +--------+ +Location +Diameter AP*+Comments+ + + -+--------+ +R saph-femoral junction - prox. (thigh)+5.46 mm +--------+ + + +--------+ +R GSV - prox. (thigh) +2.65 mm +--------+ + + +--------+ +R GSV - mid (thigh) +2.33 mm +Branch. + + + +--------+ +R GSV - distal (thigh) +2.18 mm +--------+ +------- + +--------+ +R GSV - distal (knee) +2.65 mm +--------+ + + +--------+ +R GSV - prox. (calf) +2.02 mm +--------+ + + +--------+ +R GSV - mid (calf) +2.08 mm +--------+ + + +--------+ +R GSV - distal (calf) +2.13 mm +--------+ + + +--------+ +L saph-femoral junction - prox. (thigh)+5.65 mm +--------+ + + +--------+ +L GSV - prox. (thigh) +3.74 mm +Branch. + + + +--------+ +L GSV - mid (thigh) +2.70 mm +--------+ + +------- -----+--------+ +L GSV - distal (thigh) +2.70 mm +Branch. + + + +--------+ +L GSV - distal (knee) +2.86 mm +--------+ + -------+ +--------+ +L GSV - prox. (calf) +1.24 mm +Branch. + + + +--------+ +L GSV - mid (calf) +1.66 mm +--------+ + + +--------+ +L GSV - distal (calf) +1.87 mm +Branch. + + + +--------+ *Length measurements, e.g. diameters, are expressedin mm Prepared and electronically signed by Danny Muñoz MD 11/05/2020 10:10 History/Other: Past Medical History: Past Medical History: Diagnosis Date Essential hypertension Gastroesophageal reflux disease without esophagitis Other hyperlipidemia Past Surgical History: History reviewed. No pertinent surgical history. Allergy(ies): Allergies Allergen Reactions Penicillins Rash Sulfa Antibiotics Rash Family History: No family history on file. Social History: Social History Tobacco Use Smoking status: Never Smoker Substance Use Topics Alcohol use: Not on file Drug use: Not on file I spent 25 minutes with the pt which involved more than 51% of the time in coordination of care, medical evaluation, review of records, and/or counseling of the pt regarding his/her condition/diseasestate/prognosis on the date of this note. * Jonnie Owusu APRN - PERFORMANCE REPORTER - 11/10/2020 6:24 AM EDT Images from the original note were not included. Cardiothoracic Surgery Progress Note PATIENT NAME: Genny Varela TODAY'S DATE: 11/10/2020 Surgery/Procedure: 11/08/20: CABGx5 (TAO-LAD, SVG-oM, SVG-pda, SVG-LV artery, SVG-ramus), BLE EVH Interval History: POD#2 Patient A&Ox1 and combative with nursing following ativan administration. She is paranoidand on a precedex gtt. Went into AF RVR overnight and amio gtt was initiated. She converted with 5mg IVP metoprolol this morning. I&Os: CT output: L-65 //MS-40// R-120 UO/24hrs: 1090 Fluid balance for stay: +1.3L Last recorded/verified vitals in [facility] BP (!) 141/71 Pulse 104 Temp 98.2 F (36.8 C) (Oral) Resp 17 Ht 5' (1.524 m) Wt 141 lb (64kg) SpO2 97% BMI 27.54 kg/m Recent Labs 11/07/20 0854 11/08/20 0225 11/08/20 1845 11/09/20 0253 11/10/20 0006 WBC 6.4 < > 13.2* 14.4* 9.9 HGB 11.3* < > 7.6* 9.4* 9.3* PLT 207 < > 123* 141 128* INR 1.0 -- -- -- -- NA -- < > 140 136 133* K -- < > 3.1* 4.3 4.3 CREATININE -- < > 0.63 0.70 0.78 < > = values in this interval not displayed. Physical Exam GENERAL APPEARANCE: Non-toxic appearing NEUROLOGICAL: A&Ox1, paranoid RESPIRATORY: No resp distress, diminished bilateral lower lobes CARDIOVASCULAR: Heart tones regular, no murmur, rubs or gallops, SR ABDOMINAL: Soft, non-tender, non-distended, BSx4 GENITOURINARY: coleman SKIN: Incisions well-approximated, no redness, drainage, swelling Temporary Pacemaker Wires: no Post-operative Atrial Fibrillation: yes Current Outpatient Medications Medication Instructions carisoprodol (SOMA) 350 mg, Oral, 2 TIMES DAILY PRN chlorthalidone (HYGROTON) 25 mg, Oral, DAILY labetalol (NORMODYNE) 100 mg, Oral, 2 TIMES DAILY pantoprazole (PROTONIX) 40 mg, Oral, DAILY pravastatin (PRAVACHOL) 40 mg, Oral, DAILY traMADol (ULTRAM) 50 MG tablet Take 1 or 2 tablets by mouth every 6 hours PRN moderate pain - max 5tablets a day valsartan (DIOVAN) 320 mg, Oral, DAILY ASSESSMENT/PLAN: Patient Active Problem List Diagnosis Code Coronary artery disease of [place] artery of [place] heart with stable angina pectoris (HCC) I25.118 Prediabetes R73.03 Stress hyperglycemia R73.9 S/P CABG (coronary artery bypass graft) Z95.1 CAD s/p CABGx5- ASA HTN-Valsartan, clorthalidone, labetalol at home-increase metoprolol HLD-continue pravastatin GERD-Protonix qd Stress hyperglycemia-endocrine following, ACHS accuchecks Blood loss anemia-likely reactive, no s/s of bleeding-monitor Leukocytosis-resolved Thrombocytopenia-likely reactive-monitor CXR R pleural effusion-potential thoracentesis if patient will allow Post-op delirium/agitation: continue precedex gtt, sitter at bedside, delirium protocol Post-op AF-decrease amio gtt to 0.5 at 0830, maintain until tomorrow morning Maintain coleman Cardiac Core Medications: ASA, Statin and BB Post operative pulm management: Normal Post-Operative Course Lines: IJ 11/08, coleamn 11/08 EF: 11/03 72% Blood Conservation: None noted in postoperatively period. DVT prophylaxis: TEDs, SCDs and Lovenox Treatment Team: Primary Care Provider: Elroy Weiss Cardiology:Dr. Costello CCM:Dr. Burrows Endocrinology:Dr. Garza Disclaimer INFORMED CONSENT:The nature and purpose of the proposed treatment or procedure have been discussed.The risks and benefits of the proposed treatment or procedures have been reviewed. Alternatives have been reviewed in addition to the risks and benefits of not receiving treatments or undergoing procedures. Pursuant to this discussion, the patient agrees to undergo the proposed treatment or procedure. Captured images seen in this note from are not a substitute for a comprehensive interpretation of the entire data set as reflected by the interpreting physician with regard to radiology, echocardiography, and other diagnostic images. This note may have been dictated using [employer] Medical Practice Edition 2.6 and/or [employer] Voice Recognition Feature. The document was proofread, however unrecognized voice recognition cold water machine operator errors may be present. * Maribel Conde RN - 11/10/2020 5:45 AM EDT Patient was awakened by chest xray being completed and began to pull at her lines again. She continued to be confused, non-directionable, and refused to let anyone touch her. Patient continued talk regarding pain and harm being done. Precedex medication was increased and nursing staff stayed at patient side until a sitter could be found. Patient's son was called during this time as patient requested to talk with him. Patient's son affirmed that hospital staff was not hurting the patient and that the patient could not home; patient threw phone and told son donell. * Maribel Conde RN - 11/10/2020 4:15 AM EDT Patient was screaming help and attempting to pull out lines when several nurses became present at the bedside. Patient stated that she wanted to go home and that the nurses were trying to hurt her.Patient was not directionable and would not allow anyone to touch her. She stated that she just wanted to because of how horrible she was being treated and she would never forgive the nursing staf f for what they had done to her. Dr. Garces was called and arrived at the bedside where medication changes were made. Patient began to calm down and fell asleep. * Maribel Conde RN - 11/10/2020 1:30 AM EDT Noticed patient's rhythm had changed and ordered an EKG while notifying Dr. Garces. Patient was sleeping at this time. Soon patient pressed call light stating she was hot and felt short of breath. Patient's rhythm had changed to sinus tachycardia and progressed to atrial fibrillation. Patient was diaphoretic, tachycardiac, hypertensive, and dyspneic at rest. Several medications were given and Dr. Garces was present at bedside. As patient blood pressure, heart rate, and work of breathing improved, patient was left to fall asleep and have medications take effect. * Jamil Burrows MD - 11/09/2020 9:20 PM EDT Critical Care Progress Note 11/09/2020 9:20 PM Subjective: Admit Date: 11/03/2020 PCP: Elroy Weiss No chief complaint on file. Hospitalization Overview: 70yo WF w/ CAD, HTN, HPL, chronic pain (tramadol & muscle relaxant per [place]), and GERD presents s/p CABGx5. Surgery was uncomplicated, bypass time 121, cross clamp 108. Interval History: Vital signs stable overnight. Stable on nasal cannula. Patient out of bed to chair today. Pain controlled. Acute pain service consulted Medications: Scheduled Meds: lidocaine 1 patch Transdermal Daily metoprolol tartrate 25 mg Oral BID pantoprazole 40 mg Oral QAM AC pravastatin 40 mg Oral Nightly aspirin 81 mg Oral Daily furosemide 40 mg Intravenous BID potassium chloride 40 mEq Oral Daily enoxaparin 40 mg Subcutaneous Daily ketorolac 15 mg Intravenous Q6H insulin lispro 4 Units Subcutaneous TID WC insulin lispro 0-6 Units Subcutaneous TID WC acetaminophen 1,000 mg Oral Q8H mupirocin Nasal BID polyethylene glycol 17 g Oral Daily sennosides-docusate sodium 2 tablet Oral Nightly ceFAZolin (ANCEF) IVPB 2,000 mg Intravenous Q8H albuterol 2.5 mg Nebulization BID Continuous Infusions: sodium chloride sodium chloride insulin Stopped (11/09/20 1250) dextrose Objective: Vitals: Temp (24hrs), Av F (36.7 C), Min:96.8 F (36 C), Max:98.5 F (36.9 C) BP (!) 141/71 Pulse 104 Temp 98.2 F (36.8 C) (Oral) Resp 17 Ht 5' (1.524 m) Wt 141 lb (64kg) SpO2 97% BMI 27.54 kg/m I/O:24HR INTAKE/OUTPUT: Intake/Output Summary (Last 24 hours) at 11/09/20202119 Last data filed at 11/09/2020 1900 Gross per 24 hour Intake 2356 ml Output 2145 ml Net 211 ml 11/08 0701 - 11/09 0700 In: 100 Out: 1705 [Urine:1340] CVP: CVP (Mean): 297 mmHg Ventilator Settings: Vent Mode: AC/VC+ Rate Set: 12 bmp Vt Ordered: 360 mL Pressure Support: 0 cmH20 PEEP/CPAP: 8 FiO2 : 50 % Physical Exam General Appearance: [x]WDWN []Obese []Cachectic []Thin []ill Skin: Temperature [x]Warm []Cool / Rash []Yes [x]No / Tattoo(s) []Yes []No Heent: Pupils round and react [x]Yes []No Sclera []Icteric []Non-Icteric Conjunctiva []Injected [x]Non-Injected / Pinnae []Normal []Other/ Dentitian [x][place] Teeth []No [place] Teeth []Dentures Oral Mucosa [][place] []Moist []Dry/ Oral ETT []Present [x]Absent Neck: Trachea midline [x]Yes []No/ Thyromegaly []Yes [x]No/ Crepitus []Present [x]Absent /Jvd []Present [x]Absent / []supple Lungs: [x]Clear []Crackles []Wheezes []Rhonchi / Respiratory effort []Labored [x]Non-Labored Heart: [x]RRR []Irregularly Irregular []murmur present []murmur absent/ Peripheral Edema [x]Absent []Present Abdomen: [x]Soft Bowel Sounds []Present []Absent []Diminished []Hyperactive []Hypoactive []Tender [x]Non-Tender []Distended [x]Non-distended / Hernia []Present []Absent []Unable to assess due to body habitus/ Organomegaly []Absent []Present []Unable to assess due to body habitus/ []Scar Extremities: Cyanosis []Present [x]Absent/ HERRON ([x]RUE [x]RLE [x]LUE [x]LLE) Neurologic: [place] []Yes []No Corneal reflexes []Present []Absent / Plantar reflexes []Up []Down []Absent / Withdraws to tactile []Yes []No/ Follows Commands [x]Yes []No []Unresponsive to verbal Psych: Alert [x]yes []no Oriented []x0 []x1 []x2 [x]x3 / Affect []Normal []Flat []Aggitated [x]Calm []Sedated []NAD []anxious BMP: Recent Labs 11/07/20 0241 11/07/20 0854 11/08/20 0225 11/08/20 1845 11/08/20 1852 11/09/20 0253 NA 136 -- 136 140 -- 136 K 3.7 -- 3.9 3.1* -- 4.3 CL 106 -- 103 109* -- 110* CO2 22 -- 23 22 -- 21* BUN 19 -- 20 16 -- 17 CREATININE 0.66 -- 0.60 0.63 -- 0.70 GLUCOSE 132* -- 134* 87 -- 110* CALCIUM 9.0 -- 9.2 8.6 -- 8.1* IONCA -- -- -- -- 4.90 -- MG 1.7 < > 1.8 3.7* -- 2.4* PHOS 4.1 -- 3.9 3.3 -- -- < > = values in this interval not displayed. Ionized Calcium: Lab Results Component Value Date IONCA 4.90 11/08/2020 CBC: Recent Labs 11/08/20 1845 11/09/20 0253 WBC 13.2* 14.4* HGB 7.6* 9.4* PLT 123* 141 Assessment and Plan: Active Problems: Coronary artery disease of [place] artery of [place] heart with stable angina pectoris (HCC) Prediabetes Stress hyperglycemia S/P CABG (coronary artery bypass graft) Resolved Problems: * No resolved hospital problems. * Neurological: Avoid neuro depressants. Promote good sleep hygiene. Cardiovascular: Hemodynamically stable off vasoactive medications. Pulmonary: Weaned to 2 L nasal cannula. Continue pulmonary hygiene measures. Pulling 800 cc on incentive spirometer. FEN/GI: Weaned to 2 L nasal cannula. No acute electrolyte disturbance. Adequate urine output. Creatinine stable. : Discontinue Coleman Hematologic: Hemoglobin stable status post blood transfusion. No evidence of active bleeding. Endocrine: Management per endocrinology. ID: Receiving perioperative antibiotics. Leukocytosis, likely reactive. Patient afebrile. No evidence of active infection. Prophylaxis: Stress ulcer: Protonix VTE: Lovenox Invasive Lines: Chest tube x3, peripheral IV, Coleman catheter, and right IJ introducer. Full Code Patient seen hours Excluding procedures, the total critical care time caring for this patient with life threatening, unstable organ failure, including direct patient contact, review of medical record, management of life support systems, review of data including imaging and labs, discussions with other team members, patient's family and physicians at least 35 minutes so far today. * Christina Avina, OT - 11/09/2020 2:56 PM EDT Occupational Therapy OT order received. Will put pt on schedule for OT eval. Christina Avina OTR/L * Jonnie Owusu APRN - PERFORMANCE REPORTER - 11/09/2020 5:35 AM EDT Images from the original note were not included. Cardiothoracic Surgery Progress Note PATIENT NAME: Genny Varela TODAY'S DATE: 11/09/2020 Surgery/Procedure: 11/08/20: CABGx5 (TAO-LAD, SVG-oM, SVG-pda, SVG-LV artery, SVG-ramus), BLE EVH Interval History: POD#1 Patient extubated to 6L NC within window. VSS overnight with cardene. [place] being removed thismorning and patient getting OOB to chair. IV Drips: Insulin Cardene I&Os: CT output: L-30 //MS-12// R-190 UO/24hrs: pending Fluid balance for stay: +1.7L Last recorded/verified vitals in [facility] BP (!) 176/97 Pulse 84 Temp 96.8 F (36 C) (Oral) Resp 24 Ht 5' (1.524 m) Wt 141 lb (64 kg) SpO2 92% BMI 27.54 kg/m Recent Labs 11/07/20 0854 11/07/20 0854 11/08/20 0225 11/08/20 1845 11/09/20 0253 WBC 6.4 < > 7.5 13.2* 14.4* HGB 11.3* < > 11.5* 7.6* 9.4* PLT 207 < > 219 123* 141 INR 1.0 -- -- -- -- NA -- -- 136 140 136 K -- -- 3.9 3.1* 4.3 CREATININE -- -- 0.60 0.63 0.70 < > = values in this interval not displayed. Physical Exam GENERAL APPEARANCE: Non-toxic appearing NEUROLOGICAL: A&Ox3, following commands RESPIRATORY: No resp distress, diminished bilateral lower lobes CARDIOVASCULAR: Heart tones regular, no murmur, rubs or gallops, SR/ST ABDOMINAL: Soft, non-tender, non-distended, BS hypoactive GENITOURINARY: coleman SKIN: BLE Nnamdi wrapped, DSD C/D/I Temporary Pacemaker Wires: yes Post-operative Atrial Fibrillation: no Current Outpatient Medications Medication Instructions carisoprodol (SOMA) 350 mg, Oral, 2 TIMES DAILY PRN chlorthalidone (HYGROTON) 25 mg, Oral, DAILY labetalol (NORMODYNE) 100 mg, Oral, 2 TIMES DAILY pantoprazole (PROTONIX) 40 mg, Oral, DAILY pravastatin (PRAVACHOL) 40 mg, Oral, DAILY traMADol (ULTRAM) 50 MG tablet Take 1 or 2 tablets by mouth every 6 hours PRN moderate pain - max 5tablets a day valsartan (DIOVAN) 320 mg, Oral, DAILY ASSESSMENT/PLAN: Patient Active Problem List Diagnosis Code Coronary artery disease of [place] artery of [place] heart with stable angina pectoris (HCC) I25.118 CAD s/p CABGx5- start ASA HTN-Valsartan, clorthalidone, labetalol at home-start BB HLD-Start home dose Pravastatin GERD-Protonix qd Stress hyperglycemia-endocrine following, insulin gtt per orders Blood loss anemia-likely reactive, no s/s of bleeding-monitor Leukocytosis-likely reactive, afebrile-monitor Thrombocytopenia-likely reactive-monitor Remove [place] Remove A-line s/p cardene wean CXR pending-probable lasix looking at yesterday's OOB to chair Cardiac Core Medications: ASA, Statin and BB Post operative pulm management: Normal Post-Operative Course Lines: A-line 11/08, [place] 11/08, coleman 11/08 EF: 7/2 72% Blood Conservation: None noted in postoperatively period. DVT prophylaxis: TEDs, SCDs and Lovenox Treatment Team: Primary Care Provider: Elroy Weiss Cardiology:Dr. Costello CCM:Dr. Burrows Endocrinology:Dr. Garza Disclaimer INFORMED CONSENT:The nature and purpose of the proposed treatment or procedure have been discussed.The risks and benefits of the proposed treatment or procedures have been reviewed. Alternatives have been reviewed in addition to the risks and benefits of not receiving treatments or undergoing procedures. Pursuant to this discussion, the patient agrees to undergo the proposed treatment or procedure. Captured images seen in this note from are not a substitute for a comprehensive interpretation of the entire data set as reflected by the interpreting physician with regard to radiology, echocardiography, and other diagnostic images. This note may have been dictated using [employer] Practice Edition 2.6 and/or [employer] Voice Recognition Feature. The document was proofread, however unrecognized voice recognition cold water machine operator errors may be present. * Dmitriy Skelton RCP - 11/08/2020 11:28 PM EDT Patient extubated to 6L. SPO2 98% * Dmitriy Skelton RCP - 11/08/2020 10:47 PM EDT [facility] Respiratory Care Department Progress Note Spontaneous Breathing Trial (SBT) Start: 2-3 min to Stabilize After 15 min After 30 min HR 91 97 89 SpO2 (%) 98 98 98 RR 26 27 24 VT (L) 300 259 358 Total RSBI (RR/VT in Liters) 67 Pass SBT (RSBI must be?105 to pass) NA NA YES Comments (state reason if SBT failed): Additional data if requested: NIF = VC = Name of physician results were reported to: Dr. Garces at bedside for extubation to 6L Time results reported to physician: Thank you for involving Respiratory in the care of this patient, * Jonnie Owusu APRN - CNP - 11/08/2020 6:17 AM EDT Images from the original note were not included. Cardiothoracic Surgery Progress Note PATIENT NAME: Genny Varela TODAY'S DATE: 11/08/2020 Interval History: Hospital Day #5 VSS overnight- SBPs 150s-160s. NPO since midnight. Plan for CABG second round with Dr. Mujica. Last recorded/verified vitals in [facility] BP (!) 150/88 Pulse 98 Temp 97 F (36.1 C) (Temporal) Resp 18 Ht 5' (1.524 m) Wt 141 lb (64 kg) SpO2 96% BMI 27.54 kg/m Recent Labs 11/06/20 0257 11/06/20 0257 11/07/20 0241 11/07/20 0854 11/08/20 0225 WBC 5.5 < > 6.6 6.4 7.5 HGB 10.7* < > 11.0* 11.3* 11.5* PLT 181 < > 200 207 219 INR -- -- -- 1.0 -- NA 136 -- 136 -- 136 K 3.7 -- 3.7 -- 3.9 CREATININE 0.57 -- 0.66 -- 0.60 < > = values in this interval not displayed. Physical Exam GENERAL APPEARANCE: Non-toxic appearing NEUROLOGICAL: A&Ox3, following commands RESPIRATORY: Breath sounds clear all lobes CARDIOVASCULAR: Heart tones regular, no murmurs, rubs or gallops ABDOMINAL: Soft, non-tender, non-distended, BSx4 GENITOURINARY: V[place] SKIN: Brisk cap refill Current Outpatient Medications Medication Instructions carisoprodol (SOMA) 350 mg, Oral, 2 TIMES DAILY PRN chlorthalidone (HYGROTON) 25 mg, Oral, DAILY labetalol (NORMODYNE) 100 mg, Oral, 2 TIMES DAILY pantoprazole (PROTONIX) 40 mg, Oral, DAILY pravastatin (PRAVACHOL) 40 mg, Oral, DAILY traMADol (ULTRAM) 50 MG tablet Take 1 or 2 tablets by mouth every 6 hours PRN moderate pain - max 5tablets a day valsartan (DIOVAN) 320 mg, Oral, DAILY ASSESSMENT/PLAN: Patient Active Problem List Diagnosis Code Coronary artery disease of [place] artery of [place] heart with stable angina pectoris (HCC) I25.118 CAD- plan [place] CABGx3 [place] [address] Mujica NPO since midnight, pre-ops completed Spoke with patient, all questions answered Treatment Team: Primary Care Provider: Elroy Weiss Cardiology: Dr. Costello Disclaimer INFORMED CONSENT:The nature and purpose of the proposed treatment or procedure have been discussed.The risks and benefits of the proposed treatment or procedures have been reviewed. Alternatives have been reviewed in addition to the risks and benefits of not receiving treatments or undergoing procedures. Pursuant to this discussion, the patient agrees to undergo the proposed treatment or procedure. Captured images seen in this note from are not a substitute for a comprehensive interpretation of the entire data set as reflected by the interpreting physician with regard to radiology, echocardiography, and other diagnostic images. This note may have been dictated using Blink Practice Edition 2.6 and/or [employer] Voice Recognition Feature. The document was proofread, however unrecognized voice recognition cold water machine operator errors may be present. * Ronen Hein APRN - PERFORMANCE REPORTER - 11/06/2020 6:20 AM EDT Images from the original note were not included. Cardiothoracic Surgery Progress Note PATIENT NAME: Genny Varela TODAY'S DATE: 11/06/2020 Interval History: VSS htn 140-s - 150s - no event overnight - labs unremarkable. Review of Systems Constitutional: Negative for diaphoresis, fatigue and fever. Respiratory: Negative for cough, shortness of breath and wheezing. Cardiovascular: Negative for chest pain, palpitations and leg swelling. Gastrointestinal: Negative for abdominal distention, constipation and diarrhea. Skin: Negative for color change, pallor and rash. Last recorded/verified vitals in [facility] BP (!) 156/90 Pulse 100 Temp 96.7 F (35.9 C) (Temporal) Resp 20 Ht 5' (1.524 m) Wt 142 lb3.2 oz (64.5 kg) SpO2 94% BMI 27.77 kg/m Recent Labs 11/03/20 2309 11/03/20 2309 11/04/20 0448 11/05/20 0200 11/06/20 0257 WBC 5.1 < > 5.3 5.0 5.5 HGB 10.0* < > 10.7* 10.2* 10.7* PLT 183 < > 173 187 181 INR 1.0 -- -- -- -- NA 137 < > 139 136 136 K 4.0 < > 3.9 3.6 3.7 CREATININE 0.57 < > 0.55 0.56 0.57 < > = values in this interval not displayed. Physical Exam: General: alert and oriented to person, place and time Cardiac: Heart regular rate and rhythm Pulmonary: clear to auscultation without wheezes or rales Abdomen: soft, nontender, no HSM, no guarding, no rebound, no masses Skin: Skin color, texture, turgor normal. No rashes or lesions Neuro: No weaknesses noted, sensation grossly intact. ASSESSMENT/PLAN: MV CAD HTN HPL Chronic pain r/t pinched vertebral nerve Hgb A1c- 6.5 ASA, statin BB, Nitro PRN - plan for CABG Friday with Dr. Mujica - will discuss in detail wit patient after rounding - hold diovan and chlorthalidone Treatment Team: Primary Care Provider: No primary care provider on file. Cardiology: Dr. Hernandez, Dr. Costello Disclaimer INFORMED CONSENT:The nature and purpose of the proposed treatment or procedure have been discussed.The risks and benefits of the proposed treatment or procedures have been reviewed. Alternatives have been reviewed in addition to the risks and benefits of not receiving treatments or undergoing procedures. Pursuant to this discussion, the patient agrees to undergo the proposed treatment or procedure. Captured images seen in this note from are not a substitute for a comprehensive interpretation of the entire data set as reflected by the interpreting physician with regard to radiology, echocardiography, and other diagnostic images. This note may have been dictated using [employer] Medical Practice Edition 2.6 and/or [employer] Voice Recognition Feature. The document was proofread, however unrecognized voice recognition cold water machine operator errors may be present. * Laverne Groves DTR - 11/05/2020 9:02 AM EDT Nutrition rescreen completed. Chart reviewed. Patient to be monitored and followed by the diet mold repair technician. * Peggy Henry APRN - CNP - 11/05/2020 8:30 AM EDT Images from the original note were not included. Cardiothoracic Surgery Progress Note PATIENT NAME: Genny Varela TODAY'S DATE: 11/05/2020 Interval History: VSS, some HTN overnight. On RA. Denies any further CP or SOB. She was seen by cardiology for PCI info, and seen with Dr. Mujica today. Leaning towards CABG. Review of Systems Constitutional: Negative for diaphoresis, fatigue and fever. Respiratory: Negative for cough, shortness of breath and wheezing. Cardiovascular: Negative for chest pain, palpitations and leg swelling. Gastrointestinal: Negative for abdominal distention, constipation and diarrhea. Skin: Negative for color change, pallor and rash. Last recorded/verified vitals in [facility] BP (!) 146/84 Pulse 94 Temp 97.3 F (36.3 C) (Temporal) Resp 18 Ht 5' (1.524 m) Wt 142 lb 3.2 oz (64.5 kg) SpO2 95% BMI 27.77 kg/m Recent Labs 11/03/20 2309 11/04/20 0448 11/05/20 0200 WBC 5.1 5.3 5.0 HGB 10.0* 10.7* 10.2* PLT 183 173 187 INR 1.0 -- -- NA 137 139 136 K 4.0 3.9 3.6 CREATININE 0.57 0.55 0.56 Physical Exam: General: alert and oriented to person, place and time Cardiac: Heart regular rate and rhythm Pulmonary: clear to auscultation without wheezes or rales Abdomen: soft, nontender, no HSM, no guarding, no rebound, no masses Skin: Skin color, texture, turgor normal. No rashes or lesions Neuro: No weaknesses noted, sensation grossly intact. ASSESSMENT/PLAN: MV CAD HTN HPL Chronic pain r/t pinched vertebral nerve Hgb A1c- 6.5 ASA, statin BB, Nitro PRN ARB held Tentative plan for CABG with Dr. Mujica next week, waiting for patients final decision on CABG vs PCI Treatment Team: Primary Care Provider: No primary care provider on file. Cardiology: Dr. Hernandez, Dr. Costello Disclaimer INFORMED CONSENT:The nature and purpose of the proposed treatment or procedure have been discussed.The risks and benefits of the proposed treatment or procedures have been reviewed. Alternatives have been reviewed in addition to the risks and benefits of not receiving treatments or undergoing procedures. Pursuant to this discussion, the patient agrees to undergo the proposed treatment or procedure. Captured images seen in this note from are not a substitute for a comprehensive interpretation of the entire data set as reflected by the interpreting physician with regard to radiology, echocardiography, and other diagnostic images. This note may have been dictated using Blink Practice Edition 2.6 and/or Yoogaia Voice Recognition Feature. The document was proofread, however unrecognized voice recognition cold water machine operator errors may be present. Associated attestation - Zulma Mujica MD - 11/06/2020 3:07 PM EDT DOS: 11/05/20 I personally performed a face to face diagnostic evaluation on this patient. I agree with the findings and plan of care as documented by the resident/INSTRUMENT PROCESSING TECH/HEALTH SAFETY AND ENVIRONMENT MANAGER/PA, unless otherwise noted. Plan for CABG on 11/08/20. I spent >40 mins in discussion with patient and family about surgical risks, options, and sakina-procedural care. The risks of the procedure/s include but are not limited to, bleeding, infection, pneumonia, respiratory failure, prolonged Intensive Care Unit stay, multiorgan failure, renal failure needing temporary and/or permanent dialysis, cerebrovascular accident, pulmonary embolism, deep venous thrombosis, cardiac failure or ischemia or arrhythmia, and . Zulma Mujica MD Cardiothoracic Surgery * Abrahan Jalloh MD - 11/03/2020 10:44 PM EDT Was asked to place orders for this patient who was transferred to [facility] from [place] under Dr. Mujica. Upon discussing with patient, she is not clear why she was transferred (stents is what she thought). Upon further documentation evaluation, CD for cath given, but no cath report, and no other information. I called [place] to obtain information which is occurring now. Per brief discussion, reportedly, she had multivessel CAD on [facility] today and was transferred to [facility] for CABG evaluation and this wasdiscussed by [place] physician to Dr. Mujica. Patient comfortable, in no acute distress, no active CP. She denies prior history of brain bleeds. Groin cath site appears clean without hematoma. No active CP, syncope, SOB. She is comfortable. She does not recall her last lovenox injection (she is not aware she even received them). Brief A/P; CT surgery to evaluate in Am as primary service, with H and P as per their discretion. Multivessel CAD (reportedly, awaiting reports) - reportedly has LAD lesions, ramus lesions, LCX lesions, as well as other stenosis vessels (deemedhigh risk) - heparin gtt, aspirin, statin, BB (lopressor 25 BID), nitro PRN if needed for pain, obtain formal ECHO, awaiting cath report from [place], and will attempt to upload images to merge, CT surgery evaluation in AM, ECHO formally She also history of HLD, HTN, GERd HLD - risk stratification labs, high intensity statin 80 mg lipitor HTN - resume home chlorthalidone, added lopressor 25 BID, monitor and PRN if needed Monitor on tele Will sign out patient to CT surgery primary. Abrahan Jalloh PGY 5 Ventilation Worker documented in this encounterSUMMA Work Phone: 1(123) 708-787307-12-2021 Hospital Discharge instructions* Discharge Instr - Lab* Genny BobCHARAN - 11/13/2020 7:34 AM EDT Your physician has ordered skilled home care services for you. Your home care will be provided by: [facility] [phone] [facility] [phone] * Additional Instructions* Ronen Hein, KAY - PERFORMANCE REPORTER - 11/13/2020 Images from the original note were not included. [facility]: Cardiothoracic Surgery [address] [facility]. [facility] [address] [facility] #[phone] Notify us if the following occur - Increased tenderness, redness, or swelling of your incisions. - Any drainage from the chest incision (clear or pink drainage from the leg incision or chest tube site is common). - Angina symptoms like those you had before surgery - Sharp pain in chest, neck or shoulder that is worse when taking a deep breath - Persistent fever greater than 100 degrees F or 38 degrees C - Flu-like symptoms-chills, aches, fever, increased fatigue - Heart rate faster than 150 beats/minute with shortness of breath or new irregular heart rate. - Any unusual bleeding - Shortness of breath not relieved by rest - Weight gain of three pounds in one day or five pounds over one week Activity Instructions - Sternal Precautions for 6 weeks - Do not lift, push, or pull anything heavier than 10 pounds for 6 weeks (a gallon of milk weighs 8pounds). - Do not drive until you have been given permission by your surgeon/provider and until you are off narcotic/opioid pain medication - It is ok to sleep on your side if you prop pillows to support your back. Do not sleep on your stomach. - Walk at least 4 times a day, start with 5 minute intervals, increase minutes walked each day. Do not walk on a treadmill - Balance rest and activity during your recovery - Use the stairs, but go slowly, Use the handrail for balance but do not pull yourself up with yourarms. - Shower daily. Do not take your heart medication right before you shower. You could become lightheaded from your blood pressure and heart medication. Always have someone nearby to assist you. - Do not take a tub bath or use a hot tub until all incision are completely healed (no scab). - Put dion hose on in AM and remove at bedtime. Elevate your feet above level of heart when you are sitting. - Cough and deep breathe and use incentive spirometer every hour (10x/hour while awake for two weeks. Other Instructions - Weigh yourself daily at the same time (after you urinate but before breakfast) - Keep a record of your daily weight, and bring to your first post op office visit - Take all medications as prescribed. Bring all your medication bottles to any follow up office visit Incision Care - Wash your sternal incision with anti-bacterial soap and warm water. Pat dry, and leave open to air. Do not use any lotions, or powders, or ointments. documented in this [facility] Work Phone: 1(130) 160-697407-11-2021 NoteDischarge Summary: Cardiothoracic Surgery Genny Varela :1950 AGE: 70 y.o. ADMIT DATE: 11/03/2020 DISCHARGE DATE: 11/13/2020 DISCHARGING SURGEON: Zulma Mujica MD, Office Number: [phone] PRIMARY CARE PHYSICIAN: Elroy Weiss, VISIT STATUS: Admission CODE STATUS: Full Code SURGERY: 11/08/20: CABGx5 (TAO-LAD, SVG-oM, SVG-pda, SVG-LV artery, SVG-ramus), BLE [facility] HOSPITAL COURSE: Genny Varela is a 70 y.o. female PMH CAD, HTN, Anxiety, chronic pain r/t pinched vertebral nerve, pre-diabetes, HLD and GERD. She presented to [place] ED on 11/02/20 with progressive angina and DAVIS. She was taken for cardiac catheterization that MV CAD: LAD 50-60%, LCx 99%, and RCA 80%. She was transferred to [facility] for further management. She underwent a CABGx5 on 11/08/[address] Mujica. Post-operative course was notable for ICU delirium and AF RVR. She is being discharged today in stabl e condition, A&Ox4, in NSR on POD#5 ? CONSULTS/TREATMENT TEAM: Critical Care Medicine/Pulm Endocrinology DIAGNOSTICS: 11/04/20 Echocardiogram Left ventricle: The cavity size is normal. Wall thickness is normal. Systolic function is by the biplane method of disks. The estimated ejection fraction is 72%. There are no regional wall motion abnormalities. E/e' average: 4 This value generally correlates with a low(<8) wedge pressure.There is a non-specific increase in the left ventricular outflow tract velocity at 2.3 m/sec. It may be due to increased contractility. There does not appear to be subaortic stenosis by the ventricular septum. Right ventricle: Systolic function is normal. Left atrium: The atrium is normal in size. Aortic valve: Mildly thickened, mildly calcified leaflets. DISCHARGE DIAGNOSES: Patient Active Problem List Diagnosis Code ? Coronary artery disease of [place] artery of [place] heart with stable angina pectoris (HCC) I25.118 ? Prediabetes R73.03 ? Stress hyperglycemia R73.9 ? S/P CABG (coronary artery bypass graft) Z95.1 ASSESSMENT/PLAN FROM INPATIENT NOTE: CAD s/p CABGx5- ASA HTN-Valsartan, clorthalidone, labetalol at home-cont?metoprolol HLD- change to crestor GERD- PPI Stress hyperglycemia/prediabetes- Home Going Endocrine Rx Recommendations- none Blood loss anemia-likely reactive, no s/s of bleeding-monitor ICU delirium-resolved Post-op AF- Amiodarone 200mg daily - No OAC - rate control with BB ? Cardiac Core Medications: ASA, Statin and BB Post operative pulm management: Normal Post-Operative Course? Lines:? EF:?11/03 72% Blood Conservation: None noted in postoperatively period. DVT prophylaxis: TEDs, SCDs and Lovenox ? Treatment Team: Primary Care Provider:?Elroy Weiss Cardiology:Dr. Costello CCM:Dr. Burrows Endocrinology:Dr. Garza DISCHARGE MEDICATIONS: Genny Varela Home Medication Instructions TATI:[id number] Printed on:11/13/20 6571 Medication Information amiodarone (CORDARONE) 200 MG tablet Take 1 tablet by mouth daily aspirin 81 MG chewable tablet Take 1 tablet by mouth daily carisoprodol (SOMA) 350 MG tablet Take 350 mg by mouth 2 times daily as needed for Muscle spasms. chlorthalidone (HYGROTON) 25 MG tablet Take 25 mg by mouth daily labetalol (NORMODYNE) 100 MG tablet Take 100 mg by mouth 2 times daily pantoprazole (PROTONIX) 40 MG tablet Take 40 mg by mouth daily rosuvastatin (CRESTOR) 20 MG tablet Take 1 tablet by mouth nightly traMADol (ULTRAM) 50 MG tablet Take 2 tablets by mouth every 8 hours as needed for Pain for up to 7 days. valsartan (DIOVAN) 320 MG tablet Take 320 mg by mouth daily CORE CARDIAC MEDICATIONS: Beta-ariane prescribed at discharge: [x] Yes [] No - reason why: ACEi or ARB prescribed at discharge: [x] Yes [] No - reason why: Statin prescribed at discharge: [x] Yes [] No - reason why: Anti-platelet agent prescribed at discharge: [x] Yes [] No - reason why: If yes, type: ASA Post-operative Atrial Fibrillation: [x]Yes [] No OAC: [] Yes [x] No Initial Post-op RBC transfusion date/reason: N/A Chronic Lung Disease: No chronic lung disease BMI CLASSIFICATION:Obese (BMI 30.0-39.9) ACTIVITY: activity as tolerated, strict post-sternotomy/post-thoracotomy sternal precautions as outlined in the home going instructions and no driving or operating heavy machinery until released by provider DISPOSITION: Home with Home Assist A copy of the discharge instructions which included the medications at the time of discharge, follow-up appointments, phone numbers to call with questions, activity, restrictions, and limitations was provided to the patient or their family. We greatly appreciate the opportunity to participate in the care of your patient. If you have any additional questions or concerns regarding any aspects of their care or management please do not hesitate to contact us.[facility]07-07-2021 NoteDATE OF PROCEDURE: 11/08/2020 PREOPERATIVE DIAGNOSIS: Coronary artery disease POSTOPERATIVE DIAGNOSIS: Coronary artery disease PROCEDURE: 1. Coronary artery bypass grafting x 5 - Left internal mammary artery to the left anterior descending - Saphenous vein graft to the obtuse marginal - Saphenous vein graft to the posterior descending artery - Saphenous vein graft to the posterior left ventricular artery - Saphenous vein graft to the ramus 2. Endoscopic vein harvest, bilateral lower extremity SURGEON: Zulma Mujica MD SENIOR RESEARCH ENGINEER: MISA Wells CNP,FINANCIAL BUSINESS ANALYST COMPLICATIONS: None intra-op CONDITION: Stable DESCRIPTION OF PROCEDURE: The patient was prepped and draped in the appropriate manner, having undergone general endotracheal anesthetic in addition to [place] catheter placement, arterial line, and coleman catheter placement. An antibiotic and a beta ariane were administered pre-operatively and documented. Incision and conduit harvest/preparation: A midline sternotomy incision was utilized in standard fashion. The sternum was divided with the oscillating saw. The left internal mammary artery was skeletonized and taken down with clips and bovie cauterization. Papaverine was used. The left and right lower extremity saphenous veins were harvested via the endoscopic approach. The patient was fully heparinized prior to dividing and prepping the mammary. Cannulation and cardiopulmonary bypass: After cannulation, the patient was placed on cardiopulmonary bypass support and drifted to ~34 degrees. Ascending aortic cross-clamp was applied. Antegrade cardioplegia (microplegia) was delivered till the heart was arrested in diastole. Cardioplegia was re-administered every 20 minutes while the ascending aorta was cross clamped. Aortic canula: 21 Fr soft flow angled cannula in distal ascending aorta Venous canula: 29/29 Fr triple stage cannula via right atrial appendage Cardioplegia: Antegrade via cannula in the mid ascending aorta. Coronary artery bypass: Bypasses were performed to the first obtuse marginal, ramus, posterior descending artery, and the posterior left ventricular artery with 7-0 Prolene distally and 6-0 Prolene proximally to the ascending aorta. The left internal mammary artery was anastomosed to the LAD with 7-0 Prolene. CPB wean and decannulation: The patient was given a dose of warm blood cardioplegia. Valsalva breaths were mechanically administered and the aorta was unclamped. The heart returned to normal sinus rhythm. Pacing wire was not placed. The DLP left in place as a root vent. The patient was rewarmed and weaned from cardiopulmonary bypass support without difficulty. Protamine was administered and cannulas were removed without difficulty. Three Fr donato drains were placed, one in the left pleural space, one in the right pleural space, and one in the mediastinum. Closure: Hemostasis was achieved. The sternum and incision were closed with seven #6 wire sternal wires, running 0, 2-0 and 4-0 stitches. Dressings applied, and the patient was transferred to the cardiovascular intensive care unit in stable condition. Cardiopulmonary bypass time: 121 minutes Cross clamp time: 108 minutes Zulma Mujica MD [facility]othoracic [facility] [place] Evaluation note* Diagnosis Onset Date Resolution Status Preop cardiovascular exam [facility] [place] Essential hypertension chron ic H/O coronary artery bypass surgery November 08, 2020 chronic HLD (hyperlipidemia) [facility] Work Phone: Evaluation note* Diagnosis S/P CABG (coronary artery bypass graft)- Primary Postsurgical aortocoronary bypass status Stress hyperglycemia Other abnormal blood chemistry Prediabetes Other abnormal glucose Coronary artery disease of [place] artery of [place] heart with stable angina pectoris (HCC) documented in this encounter [facility] Work Phone: Evaluation note* Diagnosis Onset Date Resolution Status Acute hypokalemia resolved Hypertensive urgency resolve d Hypoxemia resolved Pulmonary edema resolved Respiratory distress resolve d Essential hypertension chron ic H/O coronary artery bypass surgery March 17, 2021 chronic HLD (hyperlipidemia) [facility] Work Phone: Evaluation note* Diagnosis Lumbar radiculopathy- Primary Thoracic or lumbosacral neuritis or radiculitis, unspecified [facility] information [facility] Work Phone: Evaluation note* Diagnosis Back pain with sciatica- Primary Spinal stenosis, lumbosacral region Degenerative scoliosis [facility] Diagnosis Preop exam for internal medicine Other specified pre-operative examination Spinal stenosis, lumbosacral region Essential hypertension Unspecified essential hypertension Hyperlipidemia, unspecified hyperlipidemia type Gastroesophageal reflux disease, unspecified whether esophagitis present Spinal stenosis, lumbosacral region Degenerative scoliosis [facility] Dis[facility] instructionsWTriHealth Work Phone: Advance Directives No Advanced Directives Records FoundLatest Code Status on File Code Status Date Activated Date Inactivated Comments Full Code 11/08/2020 7:06 PM Full Code 11/03/2020 10:34 PM 11/08/2020 7:06 PM Advance Directive Response Recorded Date/ Time Living Will Yes June 12 11:16pm Power of Occupational Analyst Yes June 12, 2021 11:16pm Advance Directive Response Recorded Date/ Time Living Will No April 23 10:10am Power of Occupational Analyst No April 23, 2022 10:10am Advance Directive Response Recorded Date/ Time Living Will Yes July 17, 2023 1:25pm Power of Occupational Analyst Yes July 16 1:25pm Name of Medical Power of Occupational Analyst SUSANA July 17, 2023 1:25pm Summary Purpose Family History No Family History Records Found Relationship Condition Age at Onset Recorded Date/T timur Not Specified Kidney disorder Unknown mother Alcoholism Unknown father Hypertension Unknown brother Diabetes mellitus Unknown sister Diabetes mellitus Unknown Hypertension Unknown son Hypertension Unknown Cancer Status:Active Comments:Brother . Leukemia Congestive Heart Failure Status:Active Comment s:Mother. Cancer Status:Active Comments:Brother . Leukemia Congestive Heart Failure Status:Active Comment s:Mother. Cancer Status:Active Comments:Brother . Leukemia Congestive Heart Failure Status:Active Comment s:Mother. Cancer Status:Active Comments:Brother . Leukemia Congestive Heart Failure Status:Active Comment s:Mother. Cancer Status:Active Comments:Brother . Leukemia Congestive Heart Failure Status:Active Comment s:Mother. Cancer Status:Active Comments:Brother . Leukemia Congestive Heart Failure Status:Active Comment s:Mother. Cancer Status:Active Comments:Brother . Leukemia Congestive Heart Failure Status:Active Comment s:Mother. Cancer Status:Active Comments:Brother . Leukemia Congestive Heart Failure Status:Active Comment s:Mother. Cancer Status:Active Comments:Brother . Leukemia Congestive Heart Failure Status:Active Comment s:Mother. Cancer Status:Active Comments:Brother . Leukemia Congestive Heart Failure Status:Active Comment s:Mother. Cancer Status:Active Comments:Brother . Leukemia Congestive Heart Failure Status:Active Comment s:Mother. Cancer Status:Active Comments:Brother . Leukemia Congestive Heart Failure Status:Active Comment s:Mother. Cancer Status:Active Comments:Brother . Leukemia Congestive Heart Failure Status:Active Comment s:Mother. Cancer Status:Active Comments:Brother . Leukemia Congestive Heart Failure Status:Active Comment s:Mother. Cancer Status:Active Comments:Brother . Leukemia Congestive Heart Failure Status:Active Comment s:Mother. Cancer Status:Active Comments:Brother . Leukemia Congestive Heart Failure Status:Active Comment s:Mother. Cancer Status:Active Comments:Brother . Leukemia Congestive Heart Failure Status:Active Comment s:Mother. Cancer Status:Active Comments:Brother . Leukemia Congestive Heart Failure Status:Active Comment s:Mother. Cancer Status:Active Comments:Brother . Leukemia Congestive Heart Failure Status:Active Comment s:Mother. Cancer Status:Active Comments:Brother . Leukemia Congestive Heart Failure Status:Active Comment s:Mother. Cancer Status:Active Comments:Brother . Leukemia Congestive Heart Failure Status:Active Comment s:Mother. Cancer Status:Active Comments:Brother . Leukemia Congestive Heart Failure Status:Active Comment s:Mother. Cancer Status:Active Comments:Brother . Leukemia Congestive Heart Failure Status:Active Comment s:Mother. Chief Complaint and Reason for Visit Chief Complaint EXERTIONAL DYSPNEA, HYPOXIA, ? RECURRENT COVID PNA EXERTIONAL DYSPNEA, HYPOXIA, ? RECURRENT COVID PNA EXERTIONAL DYSPNEA, HYPOXIA, ? RECURRENT COVID PNA EXERTIONAL DYSPNEA, HYPOXIA, ? RECURRENT COVID PNA 6 M FU STERNAL NONUNION Reason for Visit Acute hypokalemia Hypertensive urgency Hypoxemia Pulmonary edema Respiratory distress Essential hypertension H/O coronary artery bypass surgery HLD (hyperlipidemia) Chief Complaint SOB Chief Complaint SOB 6 M FU PRESURGICAL Reason for Visit Preop cardiovascular exam Essential hypertension H/O coronary artery bypass surgery HLD (hyperlipidemia) Chief Complaint CP Chief Complaint CP rib pain Additional Source Comments Ordered Prescriptions (unrec ognized section and content) Prescription Sig Dispensed Refills Start Date End Da te amiodarone (CORDARONE) 200 MG tablet Take 1 tablet by mouth daily 90 tablet 0 11/13/2020 rosuvastatin (CRESTOR) 20 MG tablet Take 1 tablet by mouth nightly 30 tablet 3 11/13/2020 aspirin 81 MG chewable tablet Take 1 tablet by mouth daily 30 tablet 3 11/13/2020 traMADol (ULTRAM) 50 MG tabletIndications:S/P CABG (coronary artery bypass graft),Stress hyperglycemia,Prediabete s,Coronary artery disease of [place] artery of [place] heart with stable angina pectoris (HCC) Take 2 tablets by mouth every 8 hours as needed for Pain for up to 7 days. 21 tablet 0 11/13/2020 11/20/2020 furosemide (LASIX) 20 MG tablet Take 1 tablet by mouth daily for 7 days 7 tablet 0 11/13/2020 11/13/2020 amiodarone (PACERONE) 400 MG tablet Take 0.5 tablets by mouth daily 90 tablet 0 11/13/2020 11/13/2020 Scheduled Active and Recently Administ ered Medications (unrecognized section and content) Medication Order 11/11/2020 11/12/2020 11/13/2020 acetaminophen (OFIRMEV) infusion 1,000 mg 1,000 mg, Intravenous, at 400 mL/hr, Administer over 15 Minutes, EVERY 6 HOURS, First dose on Fri11/10/20 at 0730 0205 (New Bag - Provider: Veronica Gonzalez RN)0224 (Stopped - Provider: Veronica Gonzalez RN)0713 (New Bag - Provider: Veronica Gonzalez RN)0728 (Stopped - Provider: Onelia Mancilla RN)1423 (New Bag - Provider: Onelia Mancilla RN)1438 (Stopped - Provider: Onelia Mancilla RN)2050 (New Bag - Provider: Nadine Crockett RN)2105 (Stopped - Provider: Nadine Crockett RN) 0131 (New Bag - Provider: Nadine Crockett RN)0147 (Stopped - Provider: Nadine Crockett RN)0744 (New Bag - Provider: Aga Roth RN)0800 (Stopped - Provider: Aga Roth RN)1352 (New Bag - Provider: Aga Roth, ANG)1407 (Stopped - Provider: Aga Roth, ANG)2003 (New Bag - Provider: Nadine Pate, ANG)2018 (Stopped - Provider: Nadine Pate RN) 0403 (New Bag - Provider: Nadine Pate RN)0418 (Stopped - Provider: Nadine Pate, RN)0915 (New Bag - Provider: Kelly Engle, RN)0930 (Stopped - Provider: Kelly Engle, RN)1330 (Due)1930 (Due) albuterol (PROVENTIL) nebulizer solution 2.5 mg 2.5 mg, Nebulization, 2 TIMES DAILY, First dose (after last modification) on Kirsten 11/09/20 at 0800, Post-op 1015 (Given - Provider: Varsha Fonseca RCP)1859 (Given - Provider: Varsha Fonseca RCP) 1002 (Given - Provider: Lise Hamilton RCP)1728 (Given - Provider: Lise Hamilton RCP) 1038 (Given - Provider: Lise Hamilton RCP)2000 (Due) amiodarone (CORDARONE) tablet 400 mg 400 mg, Oral, 2 TIMES DAILY, First dose on 11/11/20 at 0900 0919 (Given - Provider: Onelia Mancilla RN)2217 (Given - Provider: Nadine Crockett RN) 0745 (Given - Provider: Aga Roth RN)2004 (Given - Provider: Nadine Pate RN) 0804 (Given - Provider: Kelly Engle RN)2100 (Due) aspirin chewable tablet 81 mg 81 mg, Oral, DAILY, First dose on Kirsten 11/09/20 at 0900 0919 (Given - Provider: Onelia Mancilla RN) 0745 (Given - Provider: Aga Roth RN) 0805 (Given - Provider: Kelly Engle RN) ceFAZolin (ANCEF) 2000 mg in dextrose 4 % 100 mL IVPB (premix) (CANCELED) 2,000 mg, Intravenous, EVERY 8 HOURS, First dose on Fri11/10/20 at 1600, Until Discontinued 0004 (Stopped - Provider: Veronica Gonzalez RN)0935 (New Bag - Provider: Onelia Mancilla RN)1005 (Stopped - Provider: Onelia Mancilla RN)1651 (New Bag - Provider: Onelia Mancilla RN)1721 (Stopped - Provider: Onelia Mancilla RN) dexmedetomidine (PRECEDEX) 25 mcg in sodium chloride 0.9 % 50 mL IV bolus (COMPLETED) 25 mcg, Intravenous, at 300 mL/hr, Administer over 10 Minutes, ONCE, On 11/11/20 at 0015, For 1 dose, STAT 0036 (New Bag - Provider: Veronica oGnzalez RN)0046 (Stopped - Provider: Veronica Gonzalez RN) enoxaparin (LOVENOX) injection 40 mg 40 mg, Subcutaneous, DAILY, First dose on Kirsten 11/09/20 at 0900 0919 (Given - Provider: Onelia Mancilla RN) 0745 (Given - Provider: Aga Roth, ANG) 0814 (Given - Provider: Kelly Engle, ANG) furosemide (LASIX) injection 40 mg (CANCELED) 40 mg, Intravenous, 2 TIMES DAILY, First dose on Kirsten 11/09/20 at 0900 0920 (Given - Provider: Onelia Mancilla RN)1656 (Given - Provider: Onelia Mancilla RN) furosemide (LASIX) tablet 20 mg 20 mg, Oral, DAILY, First dose on Fri11/12/20 at 0900 0745 (Given - Provider: Aga Roth RN) 0805 (Given - Provider: Kelly Engle RN) insulin lispro (HUMALOG) injection vial 0-6 Units (CANCELED) 0-6 Units, Subcutaneous, 3 TIMES DAILY WITH MEALS, First dose on Kirsten 11/09/20 at 1300, Corrective Low Dose Algorithm Glucose: Dose: <150 No Insulin 151-200 1 Unit 201-250 2 Units 251-300 3 Units 301-350 4 Units 351-400 5 Units Over 400 6 Units AND CALL PHYSICIAN 0920 (Not Given - Provider: Onelia Mancilla RN - Reason: Order parameters not met - Comment: [phone] (Given - Provider: Onelia Mancilla RN - Comment: [phone] (Not Given - Provider: Onelia Mancilla RN - Reason: Order parameters not met - Comment: 98) 0642 (Not Given - Provider: Nadine Crockett RN - Reason: Order parameters not met - Comment: 119) ipratropium-albuterol (DUONEB) nebulizer solution 1 ampule (COMPLETED) 1 ampule, Inhalation, ONCE, On 11/11/20 at 0015, For 1 dose 0034 (Given - Provider: Patti Mueller RCP) ketorolac (TORADOL) injection 15 mg (COMPLETED) 15 mg, Intravenous, EVERY 6 HOURS, First dose on Fri11/10/20 at 1345, For 1 day 0205 (Given - Provider: Veronica Gonzalez RN)0919 (Given - Provider: Onelia Mancilla RN) ketorolac (TORADOL) injection 15 mg (COMPLETED) 15 mg, Intravenous, ONCE, On Fri11/12/20 at 0900, For 1 dose 0744 (Given - Provider: Aga Roth RN) lidocaine 4 % external patch 1 patch 1 patch, Transdermal, Administer over 12 Hours, DAILY, First dose on Kirsten 11/09/20 at 0900, Apply patch to chest. Patch may remain in place for up to 12 hours in any 24 hour period. 0920 (Patch Applied - Provider: Onelia Mancilla RN)2226 (Patch Removed - Provider: Nadine Crockett RN) 0758 (Patch Applied - Provider: Aga Roth RN - Comment: chest)1999 (Patch Removed - Provider: Nadine Pate RN) 08 (Patch Applied - Provider: Kelly Engle RN - Comment: chest)2004 (Due: Patch Removed - Provider: Kelly Engle, ANG) metoprolol (LOPRESSOR) injection 5 mg (COMPLETED) 5 mg, Intravenous, ONCE, On 11/11/20 at 1445, For 1 dose 1429 (Given - Provider: Onelia Mancilla RN) metoprolol tartrate (LOPRESSOR) tablet 25 mg (CANCELED) 25 mg, Oral, 2 TIMES DAILY, First dose on Kirsten 11/09/20 at 0900 0919 (Given - Provider: Onelia Mancilla RN) metoprolol tartrate (LOPRESSOR) tablet 50 mg 50 mg, Oral, 2 TIMES DAILY, First dose (after last modification) on 11/11/20 at 2100 2219 (Given - Provider: Nadine Crockett RN) 0745 (Given - Provider: Aga Roth RN)2002 (Given - Provider: Nadine Pate RN) 08 (Given - Provider: Kelly Engle RN)2100 (Due) mupirocin (BACTROBAN) 2 % ointment (CANCELED) Nasal, 2 TIMES DAILY, First dose on Fri11/08/20 at 2100, For 4 days, Post-op 0935 (Given - Provider: Onelia Mancilla RN) pantoprazole (PROTONIX) tablet 40 mg 40 mg, Oral, DAILY BEFORE BREAKFAST, First dose on Fri11/09/20 at 0700, Do not crush or break. 0710 (Given - Provider: Veronica Gonzalez RN) 0645 (Given - Provider: Nadine Crockett RN) 0657 (Given - Provider: Nadine Pate RN) polyethylene glycol (GLYCOLAX) packet 17 g 17 g, Oral, DAILY, First dose on Fri11/08/20 at 1930, Post-op 0935 (Given - Provider: Onelia Mancilla RN) 0745 (Given - Provider: Aga Roth RN) 0805 (Given - Provider: Kelly Engle, ANG) potassium chloride (KLOR-CON M) extended release tablet 20 mEq 20 mEq, Oral, DAILY, First dose on Fri11/12/20 at 0900, Do not crush or break. 0745 (Given - Provider: Aga Roth RN) 0805 (Given - Provider: Kelly Engle, ANG) potassium chloride (KLOR-CON M) extended release tablet 40 mEq (CANCELED) 40 mEq, Oral, DAILY, First dose on Fri11/09/20 at 0900, Do not crush or break. 0920 (Given - Provider: Onelia Mancilla RN) pravastatin (PRAVACHOL) tablet 40 mg (CANCELED) 40 mg, Oral, NIGHTLY, First dose on Fri11/09/20 at 2099 2216 (Given - Provider: Nadine Crockett RN) 2003 (Given - Provider: Nadine Pate, ANG) QUEtiapine (SEROQUEL) tablet 25 mg (CANCELED) 25 mg, Oral, NIGHTLY, First dose on Fri11/10/20 at 2099 2216 (Given - Provider: Nadine Crockett, ANG) QUEtiapine (SEROQUEL) tablet 50 mg 50 mg, Oral, NIGHTLY, First dose (after last modification) on Fri11/12/20 at 2099 2003 (Given - Provider: Nadine Pate RN) 2099 (Due) rosuvastatin (CRESTOR) tablet 20 mg 20 mg, Oral, NIGHTLY, First dose on Fri11/13/20 at 2100 2100 (Due) sennosides-docusate sodium (SENOKOT-S) 8.6-50 MG tablet 2 tablet 2 tablet, Oral, NIGHTLY, First dose on Fri11/08/20 at 2100, Post-op 2217 (Given - Provider: Nadine Crockett RN) 2003 (Given - Provider: Nadine Pate RN) 2099 (Due) valsartan (DIOVAN) tablet 320 mg 320 mg, Oral, DAILY, First dose (after last modification) on Fri11/13/20 at 0900 0807 (Given - Provider: Kelly Engle RN) valsartan (DIOVAN) tablet 80 mg (CANCELED) 80 mg, Oral, DAILY, First dose on Fri11/12/20 at 0900 0957 (Given - Provider: Aga Roth RN) Continuous Medication Order 11/11/2020 11/12/2020 11/13/2020 amiodarone (CORDARONE) 450 mg in dextrose 5 % 250 mL infusion (CANCELED) 0.5 mg/min (16.6667 mL/hr, rounded to 16.7 mL/hr), Intravenous, at 16.7 mL/hr, CONTINUOUS, Starting on Fri11/10/20 at 0830, 16.7 ml/hr (0.5mg/min) Use in-line filter. 0000 (Rate/Dose Verify - Provider: Veronica Gonzalez RN)0400 (Rate/Dose Verify - Provider: Veronica Gonzalez RN)0900 (Stopped - Provider: Onelia Mancilla RN) dexmedetomidine (PRECEDEX) 400 mcg in sodium chloride 0.9 % 100 mL infusion (CANCELED) 0.2-1.4 mcg/kg/hr 64 kg (3.2-22.4 mL/hr), Intravenous, at 3.2-22.4 mL/hr, CONTINUOUS, Starting on Fri11/10/20 at 0445, For sedation, titrate to RASS +1 to -1 Dose Range: 0.2 to 1.4 mcg/kg/hr Initial dose 0.3 mcg/kg/hr Max dose: 1.4 mcg/kg/hr Contact physician if max dose does not achieve desired response If RASS 1 or more points below goal, decrease dose by 0.1 mcg/kg/hr no faster than every 30 min If RASS at goal, continue same rate If RASS 1 or more points above goal, increase dose by 0.1 mcg/kg/hr no faster than every 30 min 0000 (Rate/Dose Verify - Provider: Veronica Gonzalez RN)0400 (Rate/Dose Verify - Provider: Veronica Gonzalez RN)0815 (Rate/Dose Change - Provider: Onelia Mancilla RN)0845 (Rate/Dose Change - Provider: Onelia Mancilla RN)0915 (Rate/Dose Change - Provider: Onelia Mancilla RN)1000 (Rate/Dose Change - Provider: Onelia Mancilla RN)1030 (Rate/Dose Change - Provider: Onelia Mancilla RN)1100 (Rate/Dose Change - Provider: Onelia Mancilla RN)1200 (Rate/Dose Change - Provider: Onelia Mancilla RN)1300 (Rate/Dose Change - Provider: Onelia Mancilla RN)1400 (Stopped - Provider: Onelia Mancilla RN) PRN Medication Order 11/11/2020 11/12/2020 11/13/2020 0.9 % sodium chloride infusion 25 mL, Intravenous, at 100 mL/hr, PRN, If patient receiving piggyback infusions without ordered maintenance IV fluids or with frequent/long duration piggyback infusions, Starting on Fri11/08/20 at 1905, Administer at the same rate as the piggyback being infused., Post-op calcium gluconate 2,000 mg in dextrose 5 % 100 mL IVPB 2,000 mg, Intravenous, at 50 mL/hr, Administer over 120 Minutes, PRN, iCa less than 4.3, Starting on Fri11/08/20 at 1905, Via central line. Infuse over 2 hours, Repeat serum ionized calcium [address] infusion completed[address] Place order for recheck under surgeon, Post-op cyclobenzaprine (FLEXERIL) tablet 10 mg 10 mg, Oral, 3 TIMES DAILY PRN, Muscle spasms, Starting on 11/11/20 at 1150 1656 (Given - Provider: Onelia Mancilla RN) 1358 (Given - Provider: Aga Roth RN) dextrose 5 % solution 100 mL/hr, Intravenous, at 100 mL/hr, PRN, Low blood sugar, Starting on Fri11/08/20 at 1905, Start infusion following administration of dextrose 50% or glucagon., Post-op dextrose 50 % IV solution 12.5 g, Intravenous, PRN, Low blood sugar, Blood glucose less than 70 mg/dL and patient NOT ALERT or NPO., Starting on Fri11/08/20 at 1905, If patient does not respond within 5 minutes, repeat dose x1. Start D5W at 100 mL/hour until ordering provider can be reached. Repeat blood glucose in 15 minutes. If blood glucose is less than 70 mg/dL, repeat treatment and recheck blood glucose in 15 minutes x2. If using Glucostabilizer, dose as instructed per system., Post-op glucose (GLUTOSE) 40 % oral gel 15 g 15 g, Oral, PRN, Low blood sugar, Starting on Fri11/08/20 at 1905, If blood glucose less than 50 mg/dL and patient ALERT and TOLERATING PO, give 2 tubes glucose gel. If blood glucose less than 70 mg/dL and patient ALERT and TOLERATING PO, give 1 tube glucose gel. Repeat blood glucose in 15 minutes. If blood glucose is less than 70 mg/dL, repeat treatment and recheck blood glucose in 15 minutes x2 and notify provider., Post-op magnesium sulfate 2000 mg in 50 mL IVPB premix 2,000 mg, Intravenous, at 25 mL/hr, Administer over 2 Hours, PRN, Other, hypomagnesemia, Starting on Fri11/08/20 at 1905, Via central line - If patient has acute/chronic renal failure do not initiate protocol, call MD for management. Mag level Dose Less than or equal to 1.0 Give 2 grams at 1 gm/hr. Call MD. Monitor BP and EKG. Repeat Magnesium level 60 minutes post infusion. 1.1 - 1.5 Give 2 grams at 1 gm/hr. Repeat Magnesium level 60 minutes post infusion 1.6 - 1.9 Give 2 grams at 1 gm/hr. Repeat Magnesium level 60 minutes post infusion Greater than 1.9 No coverage, Post-op ondansetron (ZOFRAN) injection 4 mg 4 mg, Intravenous, EVERY 8 HOURS PRN, Nausea, Starting on 11/08/20 at 1905, Post-op oxyCODONE (ROXICODONE) immediate release tablet 10 mg(Linked Group 1) 10 mg, Oral, EVERY 4 HOURS PRN, Pain Severe (7-10), Starting on 11/11/20 at 1150 1202 (See Alternative - Provider: Onelia Mancilla RN)1423 (See Alternative - Provider: Onelia Mancilla RN)1832 (Given - Provider: Onelia Mancilla RN)2254 (Given - Provider: Nadine Crockett RN) 0328 (Given - Provider: Nadine Crockett RN)0744 (Given - Provider: Aga Roth RN)1237 (Given - Provider: Aga Roth RN)1642 (Given - Provider: Aga Roth RN)2048 (Given - Provider: Nadine Pate RN) 0404 (Given - Provider: Nadine Pate RN)0805 (See Alternative - Provider: Kelly Engle RN)0821 (Given - Provider: Kelly Engle RN) oxyCODONE (ROXICODONE) immediate release tablet 5 mg(Linked Group 1) 5 mg, Oral, EVERY 4 HOURS PRN, Pain Moderate (4-6), Starting on 11/11/20 at 1150 1202 (Given - Provider: Onelia Mancilla RN)1423 (Given - Provider: Onelia Mancilla RN)1832 (See Alternative - Provider: Onelia Mancilla RN)2254 (See Alternative - Provider: Nadine Crockett RN) 0328 (See Alternative - Provider: Nadine Crockett RN)0744 (See Alternative - Provider: Aga Roth RN)1237 (See Alternative - Provider: Aga Roth RN)1642 (See Alternative - Provider: Aga Roth RN)2048 (See Alternative - Provider: Nadine Pate RN) 0404 (See Alternative - Provider: Nadine Pate RN)0805 (Canceled Entry - Provider: Kelly Engle RN - Comment: gave 10mg)0821 (See Alternative - Provider: Kelly Engle, ANG) potassium chloride (KLOR-CON M) extended release tablet 20 mEq 20 mEq, Oral, PRN, hypokalemia, Starting on Fri11/08/20 at 1905, If patient is intubated or not tolerating PO use PRN IV replacement protocol Potassium level Dose < 3.0 = Give 20 mEq x 3 doses 3.0-3.6 = Give 20 mEq x 2 doses Recheck potassium level 2 hour after replacement given, place order for lab under [place] If potassium level < 3 after 1st replacement: Call surgeon. Do not crush or break., Post-op potassium chloride 20 mEq/50 mL IVPB (Central Line) 20 mEq, Intravenous, at 50 mL/hr, Administer over 60 Minutes, PRN, Other, hypokalemia, Starting on Fri11/08/20 at 1905, Via central line - do not use if urine output below 30 mL/hr or if patient is on total parental nutrition, peritoneal or hemodialysis. Potassium Level Dose: Less than or equal to 3.5-Give 20mEq x 2 doses. Less than or equal to 2-Call provider. Repeat potassium level 2 hour post-infusion and follow protocol as indicated., Post-op sodium chloride flush 0.9 % injection 10 mL 10 mL, Intravenous, PRN, Line Care, Starting on Fri11/08/20 at 1905, After every IV line use, Post-op 0918 (Given - Provider: Onelia Mancilla RN) 0749 (Given - Provider: Aga Roth RN) traMADol (ULTRAM) tablet 100 mg 100 mg, Oral, EVERY 6 HOURS PRN, Pain Mild (1-3), Starting on 11/12/20 at 1456 2004 (Given - Provider: Nadine Pate, ANG) 0404 (Given - Provider: Nadine Pate RN)1031 (Given - Provider: Kelly Engle RN) traMADol (ULTRAM) tablet 50 mg (CANCELED) 50 mg, Oral, EVERY 6 HOURS PRN, Pain Mild (1-3), Starting on 11/11/20 at 1151 2050 (Given - Provider: Nadine Crockett RN) 1404 (Given - Provider: Aga Roth, ANG) Linked Groups Order Group 1: oxyCODONE (ROXICODONE) immediate release tablet 5 mgJump to med 5 mg, Oral, EVERY 4 HOURS PRN, Pain Moderate (4-6), Starting on 11/11/20 at 1150 Or oxyCODONE (ROXICODONE) immediate release tablet 10 mgJump to med 10 mg, Oral, EVERY 4 HOURS PRN, Pain Severe (7-10), Starting on 11/11/20 at 1150 INFORMATION SOURCE (unrecogn ized section and content) DATE CREATED AUTHOR 11/25/2020 [facility] DATE CREATED AUTHOR AUTHOR'S ORGANIZ ATION 06/07/2021 [facility] DATE CREATED AUTHOR AUTHOR'S ORGANIZ ATION 06/23/[address] [facility] DATE CREATED AUTHOR AUTHOR'S ORGANIZ ATION 12/13/2022 [facility] DATE CREATED AUTHOR AUTHOR'S ORGANIZ ATION 01/25/2023 [place] DATE CREATED AUTHOR AUTHOR'S ORGANIZ ATION 12/05/2024 [facility] Goals (unrecognized section and content) Goals may be documented in a n alternate sectionGoals may be documented in an alternate sectionGoals may be documented in an alternate sectionGoals may be documented in an alternate sectionGoals may be documented in an alternate sectionGoals may be documented in an alternate section Reason for Visit (unrecogniz ed section and content) Reason Comments Pain C/o pn in lower back , interested in discussing sx, told L4-L5 and also has pn in hips and down into the legs, some n/t, was lft worse than rt but now same, no hx of PT injections or sx, taking tramadol and tylenol for pn, hx of scoliosis, Pain Reason Comments Pre-operative Evaluation Pt presents to discuss sx scheduled for 06/21/22, still having pn, no new concerns but having more intense pn, Reason Comments Med Refill Care Teams (unrecognized sec tion and content) Retail Financial Analyst Relationship Specialty Start Date End Date Jimmy Castaneda (SanjanaMD adele [address] [place] [address] [place] [phone] PCP - General Family Medicine 10/11/20 Retail Financial Analyst Relationship Specialty Start Date End Date Jimmy Castaneda MD (Andy) [address] [facility] [place] [id number] PCP - General Family Medicine 10/11/20 Retail Financial Analyst Relationship Specialty Start Date End Date Elroy Weiss MD [address] [place] [address] PCP - General Family Medicine 06/05/22 Roshan Costello MD [address] [place] [address] Cardiovascular Disease 06/05/22 Team Status: Active Member Role Status Dates Dr. Jimmy Castaneda MD Family Provider Active Dr. Elroy Weiss MD Primary Care Provider Active Team Status: Inactive Member Role Status Dates Dr. Elroy Weiss MD Primary Care Provider, Referring Provider Active Dr. Roshan Costello MD Attending Provider Active Team Status: Active Member Role Status Dates Dr. Elroy Weiss MD Primary Care Provider Active Dr. Roshan Costello MD Attending Provider Active Team Status: Inactive Member Role Status Dates Dr. Elroy Weiss MD Primary Care Provider Active Dr. Chadd Recinos MD Attending Provider, Emergency Pr ovider Active Team Status: Inactive Member Role Status Dates Dr. Elroy Weiss MD Primary Care Provider Active Dr. Roshan Costello MD Attending Provider Active Team Status: Inactive Member Role Status Dates Dr. Elroy Weiss MD Primary Care Provider Active Dr. Jesse Esparza DO Emergency Provider Active Team Status: Inactive Member Role Status Dates Dr. Elroy eWiss MD Primary Care Provider Active Dr. Jesse Esparza DO Attending Provider, Emergency P rovider Active Team Status: Inactive Member Role Status Dates Dr. Elroy Weiss MD Primary Care Provider Active Ed Physician Provider Emergency Provider Active Team Status: Active Member Role Status Dates Dr. Jimmy Castaneda MD Family Provider Active Dr. Chadd Walton MD Primary Care Provider Active Team Status: Inactive Member Role Status Dates Dr. Elroy Weiss MD Primary Care Provider Active Ed Physician Provider Attending Provider, Emergency Pr ovider Active Team Status: Inactive Member Role Status Dates Dr. Chadd Walton MD Primary Care Provi ras, Attending Provider, Referring Provider Active Retail Financial Analyst Relationship Specialty Start Date End Date Elroy Weiss MD [address] [place] [address] [place] [phone] PCP - General 11/06/20 FOR RECORDS PERTAINING TO PATIENTS WHO ARE OR HAVE BEEN ENROLLED IN A CHEMICAL DEPENDENCY/SUBSTANCEABUSE PROGRAM, SOME INFORMATION MAY BE OMITTED. This clinical summary was aggregated from multiple sources. Caution should be exercised in using it in the provision of clinical care. This summary normalizes information from multiple sources, and as a consequence, information in this document may materially change the coding, format and clinical context of patient data. In addition, data may be omitted in some cases. CLINICAL DECISIONS SHOULD BE BASED ON THE PRIMARY CLINICAL RECORDS. [employer] provides no warranty or guarantee of the accuracy or completeness of information in this document.
== END | disposition home or self-care (01) ==
LOC: MTRAD 14:55
PROVIDERS: PCP Family Medicine; Referring Provider Family Medicine; Visit Provider Family Medicine
DX: M25.511 Pain in right shoulder (principal)
CPT/HCPCS: 73030

== ENCOUNTER 2024-12-29 06:32 | Observation (INO) | payer MEDICARE, SELFPAY ==
[2024-12-29] VITALS (10 sets, daily range): BP systolic 140–186; BP diastolic 69–97; PULSE 76–106; RESP 16–28; TEMP 36.3–37.1; O2SAT 84–100; BMI 27.1; BMI 26.8
--- NOTE | 2024-12-29 06:41 | RAD_ITS ---
PROCEDURE: CHEST 1 VIEW (PORTABLE) 12/29/2024 REASON FOR EXAM: CHEST PAIN TECHNIQUE: Frontal view of the chest. COMPARISON: Prior study dated May 29, 2024. FINDINGS: Hardware: EKG electrodes are seen. Heart: Status post midline sternotomy. Heart size upper limits of normal. Lungs: Minimal increased markings at the left lung base suggestive of linear atelectasis. Bones: Degenerative changes are identified within the thoracic spine. Other: Questionable left shoulder calcific tendinitis. RAD/Chest 1 View (Portable) IMPRESSION: Mild increased markings at the left lung base suggestive of linear atelectasis. Reading Location: [facility]
--- NOTE | 2024-12-29 06:42 | EX.ED.DYSGE1 ---
HPI History of Present Illness Chief Complaint: Hypertension Informant: patient and spouse/S.O. Narrative Narrative: 74-year-old female presents wanting evaluation because her blood pressure was high at 199 this morning when her took it for her. She wanted it checked because she has been having chest tightness off and on and then overnight she was orthopneic. She denies being short of breath right now. Her chest discomfort is present, feels like diffuse tightness nonradiating nonpleuritic, but not as bad. She had a few episodes of vomiting yesterday. No diarrhea. No fevers or chills. No cough. States she had a CABG for 5 years ago she thinks. [facility] Medical History Chest pain Nondisplaced fracture of distal phalanx of left great toe Fracture of distal phalanx of left great toe Medication side effect Toxic metabolic encephalopathy Agitation Acidosis, lactic Closed nondisplaced fracture of left great toe Rhabdomyolysis Preop cardiovascular exam Dyspnea Acute respiratory failure with hypoxia COVID-19 Anemia Chronic pain Facial droop Postoperative atrial fibrillation (11/10/20) Essential hypertension Atherosclerosis of [place] coronary artery of [place] heart without angina pectoris Pinched vertebral nerve Scoliosis GERD (gastroesophageal reflux disease) HLD (hyperlipidemia) History of back pain Home Medications Medication Instructions Recorded Last Taken Type rosuvastatin 20 mg tablet 20 mg PO QHS cholesterol 12/15/20 07/16/23 History labetalol 200 mg tablet 200 mg PO BID Check with primary 06/12/21 07/17/23 History doctor pantoprazole 40 mg tablet,delayed 40 mg PO DAILY Check with primary 06/12/21 07/17/23 History release (Protonix) doctor valsartan 320 mg tablet 320 mg PO DAILY Check with primary 06/12/21 07/17/23 History doctor tramadol 50 mg tablet 50 mg PO Q8H pain 07/17/23 07/17/23 History gabapentin 300 mg capsule 300 mg PO DAILY 01/20/24 Unknown History aspirin 81 mg tablet,delayed 81 mg PO BREAKFAST #0 tabs 05/31/24 Unknown Rx release baclofen 10 mg tablet 10 mg PO TID 12/29/24 Unknown History clonidine HCl 0.1 mg tablet 0.1 mg PO BID 12/29/24 Unknown History Allergy/AdvReac Type Severity Reaction Status Date / Time levofloxacin Allergy Severe leg pain Verified 12/29/24 06:36 amiodarone Allergy mental Verified 12/29/24 06:36 confusion Penicillins Allergy Unknown Verified 12/29/24 06:36 Sulfa (Sulfonamide Allergy Rash Verified 12/29/24 06:36 Antibiotics) ciprofloxacin AdvReac Rash Verified 12/29/24 06:36 lorazepam (From Ativan) AdvReac "I went Verified 12/29/24 06:36 crazy" Family History Mother Alcoholism Father Hypertension Brother Diabetes Sister Diabetes Hypertension Sister No problems noted. Son Hypertension Other Kidney disease Surgical History History of left heart catheterization (11/03/20) History of appendectomy H/O coronary artery bypass surgery (11/08/20) History of cholecystectomy Social History household members: spouse pets and animals: Yes (cats) Smoking Status: Never smoker alcohol intake: never substance use type: does not use caffeine: Yes Type: carbonated beverages ROS ROS ED Constitutional Constitutional ED: Denies chills or fever(s) Eyes Eyes: Denies change in vision or diplopia ENT ENT ED: Denies rhinorrhea or sore throat Cardiovascular Cardiovascular: Reports chest pain and orthopnea; Denies leg edema, palpitations or radiating jaw, neck or arm pain Respiratory/Chest Respiratory/Chest: Reports dyspnea and orthopnea; Denies cough Gastrointestinal Gastrointestinal: Denies abdominal pain, diarrhea, nausea or vomiting Genitourinary Genitourinary ED: Denies dysuria or hematuria Musculoskeletal Musculoskeletal: Denies back pain or neck pain Integumentary Denies abscess or rash Neurologic Neurologic: Denies headache(s), paresthesias or weakness Psychiatric Psychiatric: Denies anxiety or suicidal thoughts EXAM Physical Exam Const Vital Signs: 12/29/24 06:32 12/29/24 06:39 12/29/24 06:52 Temperature 97.9 F Temperature Source Oral Pulse Rate 89 91 82 Respiratory Rate 16 28 H Blood Pressure 176/97 H 161/84 H Blood Pressure Mean 123 Pulse Ox 84 96 Oxygen Delivery Method Room Air Nasal Cannula Oxygen Flow Rate (L/min) 2 12/29/24 07:00 Temperature Temperature Source Pulse Rate Respiratory Rate Blood Pressure Blood Pressure Mean Pulse Ox 95 Oxygen Delivery Method Nasal Cannula Oxygen Flow Rate (L/min) 2 Positive well nourished and well developed General Appearance ED: well developed and NAD HEENT Reports moist mucous membranes normocephalic and atraumatic Eyes PERRL and EOMs intact bilaterally Neck full ROM and supple Resp normal respiratory effort and clear to auscultation bilaterally Cardio regular rate, regular rhythm and no murmurs GI non-tender and non-distended Auscultation: normoactive bowel sounds Palpation: soft Back/Spine no CVA tenderness General Back: other FROM Extremity normal to inspection General Extremety ED: Negative for edema, pulses abnormal or tenderness General Extremity: Negative for edema or pulses abnormal Neuro oriented x3, CN's II-XII intact bilaterally and no sensory deficits noted Sensorium / Orientation: awake and alert Motor Exam: strength 5/5 throughout Psych Mood & Affect: anxious Skin no rashes or lesions noted and no wounds MDM MDM MDM Narrative Medical decision making narrative: Patient presented for high blood pressure numbers, I am more concerned about her symptoms in context of the high blood pressure then I am the actual numbers which are 176/97 here. She has symptoms that suggest cardiac etiology and possible congestive heart failure so I added a BNP onto her labs, and reviewed her EKG which shows some acute ST depressions laterally without signs of a STEMI reciprocally, this is a new change compared with her prior EKG in May of this year, LVH with strain is in the differential given the borderline voltage criteria for LVH, as is myocardial ischemia. She was given aspirin and nitroglycerin. She is feeling better blood pressure down to 161/84. Chest x-ray may show a little mild cephalization on my interpretation, radiology called it fairly unremarkable. Her BNP is 1800 consistent with borderline/mild acute congestive heart failure as are her symptoms and elevated blood pressure. No leukocytosis. Initial troponin is normal. She is hypokalemic we started replacing that. I discussed with cardiology Dr. Conrad, I am concerned because she has acute EKG changes even though she had a negative stress earlier in the year. He agrees inpatient management is most appropriate, and we both agree PCU would be appropriate with IV Lasix and nitroglycerin paste given that she is doing better and stable now with regards to her symptoms of blood pressure. Discussed with hospitalist. History & Record Review Discussion w/independent historian: Patient and Significant other Additional record(s) reviewed:: Prior outpatient record (Negative pharmacologic nuclear stress 05/31/2024) Lab Data Attestation: I reviewed the patient's lab results. Labs: Laboratory Results - last 24 hr 12/29/24 06:50 WBC 5.7 RBC 4.38 Hgb 13.2 Hct 40.2 MCV 91.8 MCH 30.1 MCHC 32.8 RDW Std Deviation 41.8 RDW Coeff of [place] 12.3 Plt Count 168 MPV 11.6 Immature Gran % (Auto) 0.400 Neut % (Auto) 66.9 Lymph % (Auto) 16.8 L [place] % (Auto) 7.6 Eos % (Auto) 7.8 H Baso % (Auto) 0.5 Absolute Neuts (auto) 3.8 Absolute Lymphs (auto) 0.95 Nucleated RBC % 0 APTT 28.6 Sodium 139 Potassium 2.9 L Chloride 103 Carbon Dioxide 22.8 Anion Gap 14 BUN 10 Creatinine 0.64 L Estim Creat Clear Calc 48.75 L Est GFR (MDRD) Non-Af 91 BUN/Creatinine Ratio 15.1 Glucose 171 H Calcium 9.0 Troponin T High Sens 13 NT pro BNP II 1818 H Radiography Diagnostic Testing: Clinical Impression(s) from Imaging Studies Chest X-Ray 12/29/24 06:41 IMPRESSION: Mild increased markings at the left lung base suggestive of linear atelectasis. Reading Location: [facility] Rhythm Strip Rhythm Strip: Sinus Rhythm Rate: 83 Ectopy: None EKG Initial EKG: Attestation: I personally reviewed and interpreted this EKG as follows: Interpretation: Sinus Rhythm and S-T Depression (septo-laterally 0.5mm including I, aVL ) Prior EKG tracings: available for review Prior: Unchanged Management Discussion w/another healthcare provider: Hospitalist and [employer] Coder (cardiology jessi) Discharge Plan Dx/Rx/DC Orders Clinical Impression: Intermittent chest pain, Acute electrocardiogram changes, Acute CHF, Accelerated hypertension Disposition Disposition: [facility]
[2024-12-29] MEDS: Nitroglycerin SL (ED/IMG/CATH) 0.4 MG TABLET SL (06:52)
[2024-12-29] MEDS: 0.9% Normal Saline (1000mL) 1,000 ML 150 ML IV (06:58)
[2024-12-29 07:05] LABS: Hematocrit 40.2 % (37-47); Hemoglobin 13.2 g/dL (12.0-15.0); Immature Granulocytes Count 0.020 X10^3/uL (0.0-0.0); Mean Corp Hgb Conc 32.8 g/dL (32-36); Mean Corpuscular Volume 91.8 fL (81-99); Mean Platelet Vol. 11.6 fl (6.2-12.0); NRBC Flagged by Analyzer 0 % (0-5); Platelet Count 168 K/mm3 (150-450); RBC Distribution Width CV 12.3 % (11.6-14.6); RBC Distribution Width SD 41.8 fl (35.1-43.9); Red Blood Count 4.38 M/mm3 (4.2-5.4); White Blood Count 5.7 K/mm3 (4.4-11.0)
[2024-12-29 07:43] LABS: Pro- Brain NATRIURETIC PEPTIDE 1818 pg/mL (<=1800)
[2024-12-29 07:46] LABS: Anion Gap 14 (5-15); BUN 10 mg/dL (4-19); BUN/Creat Ratio 15.1 RATIO (10-20); Calcium,Total 9.0 mg/dL (7.6-11.0); Carbon Dioxide 22.8 mmol/L (21.0-32.0); Chloride 103 mmol/L (98-108); Estimated Creatinine Clearance 48.75 ml/min (50-250); Glucose 171 mg/dL (70-99); Potassium 2.9 mmol/L (3.3-5.1); Troponin T High Sensitivity 13 ng/L (<=14)
[2024-12-29 08:07] LABS: Partial Thromboplast Time 28.6 Seconds (24.1-36.2)
--- NOTE | 2024-12-29 08:21 | PCM.HP.STD ---
HPI - General General Date of Admission: 12/29/24 Date of Service: 12/29/24 Chief Complaint: Chest discomfort HPI Narrative NEHEMIAS VARELA, is a 74 F who presented to the emergency department [facility] on 12/29/2024 with a chief complaint of hypertension. Patient wanted evaluated for her blood pressure as well as high this morning when her took it at 199 systolic. She been having chest tightness on and off and then overnight she had some orthopnea so that is why she wanted her blood pressure checked. She was not short of breath at the time of presentation. She stated she did have some mild chest discomfort that felt like tightness that was nonradiating and nonpleuritic but she stated it was not horrible. She had a couple episodes of emesis with the last 1 being on the morning of presentation and she states she has been sweating on and off but does not sound like she has had diaphoresis associated with her chest pain or shortness of breath. She has had previous CABG but unable to remember which year it was per our records it is documented as 2020. Patient states she has not missed any of her blood pressure medications Vital signs on presentation showed temperature of 97.9, heart rate 89, blood pressure was 176 over send 97, respiratory rate 16 pulse ox was 84% on room air and improved to 96% on 2 L nasal cannula. CBC was unremarkable with a normal white count. Differential was fairly unremarkable other than some eosinophilia. Coags were normal. Chemistry panel showed marked hypokalemia with potassium of 2.9 but was otherwise unremarkable. Serum blood sugar was elevated 171 and A1c was obtained and found to be 6.6. Initial troponin was 13 and BNP was 1818. Chest x-ray was consistent with some mild volume overload. EKG had no ST-T wave changes concerning for acute ischemia. Given her previous coronary history, hypoxemia, and chest discomfort the ED physician contacted the national sales associate and they recommended admission for further observation, blood pressure control and potential cardiac catheterization depending on enzymes and overall symptoms. [facility] Medical History (Updated 12/29/24 @ 18:[address] Varsha Sales DO) Chest pain Nondisplaced fracture of distal phalanx of left great toe Fracture of distal phalanx of left great toe Medication side effect Toxic metabolic encephalopathy Agitation Acidosis, lactic Closed nondisplaced fracture of left great toe Rhabdomyolysis Preop cardiovascular exam Dyspnea Acute respiratory failure with hypoxia COVID-19 Anemia Chronic pain Facial droop Postoperative atrial fibrillation (11/10/20) Essential hypertension Atherosclerosis of [place] coronary artery of [place] heart without angina pectoris Pinched vertebral nerve Scoliosis GERD (gastroesophageal reflux disease) HLD (hyperlipidemia) History of back pain Home Medications Medication Instructions Recorded Last Taken Type rosuvastatin 20 mg tablet 20 mg PO QHS cholesterol 12/15/20 12/28/24 History labetalol 200 mg tablet 200 mg PO BID Check with primary 06/12/21 12/28/24 History doctor pantoprazole 40 mg tablet,delayed 40 mg PO DAILY Check with primary 06/12/21 12/28/24 History release (Protonix) doctor valsartan 320 mg tablet 320 mg PO DAILY Check with primary 06/12/21 12/28/24 History doctor tramadol 50 mg tablet 50 mg PO Q8H pain 07/17/23 12/28/24 History gabapentin 300 mg capsule 300 mg PO DAILY Pain 01/20/24 12/28/24 History aspirin 81 mg tablet,delayed 81 mg PO BREAKFAST #0 tabs 05/31/24 12/28/24 Rx release baclofen 10 mg tablet 10 mg PO TID Anticoag 12/29/24 12/28/24 History clonidine HCl 0.1 mg tablet 0.1 mg PO BID B/P 12/29/24 12/28/24 History Allergy/AdvReac Type Severity Reaction Status Date / Time levofloxacin Allergy Severe leg pain Verified 12/29/24 06:36 amiodarone Allergy mental Verified 12/29/24 06:36 confusion Penicillins Allergy Unknown Verified 12/29/24 06:36 Sulfa (Sulfonamide Allergy Rash Verified 12/29/24 06:36 Antibiotics) ciprofloxacin AdvReac Rash Verified 12/29/24 06:36 lorazepam (From Ativan) AdvReac "I went Verified 12/29/24 06:36 crazy" Family History Mother Alcoholism Father Hypertension Brother Diabetes Sister Diabetes Hypertension Sister No problems noted. Son Hypertension Other Kidney disease Surgical History History of left heart catheterization (11/03/20) History of appendectomy H/O coronary artery bypass surgery (11/08/20) History of cholecystectomy Social History household members: spouse pets and animals: Yes (cats) Smoking Status: Never smoker alcohol intake: never substance use type: does not use caffeine: Yes Type: carbonated beverages ROS Constitutional Constitutional: Denies anorexia, change in weight, chills, fatigue, fever(s), malaise, night sweats, weakness or other Eyes Eyes: Denies blurry vision, change in eye color, change in vision, discharge from eye(s), double vision, erythema, eye pain, loss of vision or other ENT HEENT: Denies abnormal hearing, dysphagia, ear pain, epistaxis, headache(s), hearing loss, nasal congestion, nasal discharge, post nasal drip, sinus pressure, sore throat or other Cardiovascular Cardiovascular: Reports chest pain and dyspnea on exertion; Denies claudication, edema, lightheadedness, orthopnea, palpitations, paroxysmal nocturnal dyspnea, rapid heart rate, syncope or other Respiratory/Chest Respiratory/Chest: Reports shortness of breath with exertion; Denies cough, dyspnea, excessive phlegm production, hemoptysis, productive cough, shortness of breath at rest, wheezing or other Gastrointestinal Gastrointestinal: Reports nausea and vomiting; Denies abdominal pain, coffee ground emesis, constipation, diarrhea, dyspepsia, hematemesis, hematochezia, loose stools, melena or other Genitourinary Genitourinary: Denies burning urination, difficulty urinating, dysuria, hematuria, nocturia, urinary frequency, urinary hesitancy, urinary incontinence, urinary urgency or other Musculoskeletal Musculoskeletal: Denies arthralgias, back pain, joint pain, joint stiffness, joint swelling, myalgias, neck pain or other Neurologic Neurologic: Denies abnormal gait, abnormal speech, confusion, disequilibrium, dizziness, focal weakness, headache(s), numbness, paresthesias, seizure-like activity, seizures, syncope, tingling, tremor(s) or other Psychiatric Psychiatric: Denies anxiety, depression, homicidal ideation, suicidal ideation or other Endocrine Endocrinology: Denies change in body appearance, cold intolerance, excessive sweating, heat intolerance, polydipsia, polyuria or other Hematologic/Lymphatic Hematologic/Lymphatic: Denies anemia, easy bleeding, easy bruising, lymphadenopathy or other Allergic/Immunologic Allergic/Immunologic: Denies rhinitis, hives, eczemia, asthma or other Vital Signs Vital Signs Vital Signs: 12/29/24 06:32 12/29/24 06:39 12/29/24 06:52 Temperature 97.9 F Temperature Source Oral Pulse Rate 89 91 82 Respiratory Rate 16 28 H Blood Pressure 176/97 H 161/84 H Blood Pressure Mean 123 Pulse Ox 84 96 Oxygen Delivery Method Room Air Nasal Cannula Oxygen Flow Rate (L/min) 2 12/29/24 07:00 Temperature Temperature Source Pulse Rate Respiratory Rate Blood Pressure Blood Pressure Mean Pulse Ox 95 Oxygen Delivery Method Nasal Cannula Oxygen Flow Rate (L/min) 2 Weight Weight: 60.8 kg Body Mass Index (BMI) 27.1 Physical Exam Const alert, oriented x3, no apparent distress, average body habitus and well nourished Constitutional Narrative: Older, white female, sitting up in bed, significant other at bedside, patient appears comfortable, nontoxic General Appearance: cooperative HEENT normocephalic, head/scalp atraumatic, hearing grossly normal bilaterally and moist oral mucous membranes HEENT Narrative: Dentures in place, Mallampati 2, no thrush Eyes conjunctivae normal Eyes Narrative: No scleral icterus Neck supple Neck Narrative: Trachea midline Resp normal respiratory effort, no retractions and no use of accessory muscles Resp Narrative: Few crackles at bases bilaterally Auscultation: crackles; Negative for rhonchi or wheezes Cardio regular rate, regular rhythm, S1 normal heart sound, S2 normal heart sound, no murmurs, no rub, no gallops and no clicks GI normal to inspection, nondistended, normoactive bowel sounds, soft to palpation and non-tender Extremity Extremity Narrative: Trace bilateral lower extremity edema, pedal pulses are 2+, radial pulses are 2+, no cyanosis or clubbing Neuro oriented x3 and moves all extremities Speech: speech normal Psych affect normal Psych Narrative: Very pleasant, interacts appropriately Results Lab / Micro Data 12/29/24 06:50 12/29/24 06:50 Labs: Laboratory Results - last 24 hr 12/29/24 06:50: WBC 5.7, RBC 4.38, Hgb 13.2, Hct 40.2, MCV 91.8, MCH 30.1, MCHC 32.8, RDW Std Deviation 41.8, RDW Coeff of [place] 12.3, Plt Count 168, MPV 11.6, Immature Gran % (Auto) 0.400, Neut % (Auto) 66.9, Lymph % (Auto) 16.8 L, [place] % (Auto) 7.6, Eos % (Auto) 7.8 H, Baso % (Auto) 0.5, Absolute Neuts (auto) 3.8, Absolute Lymphs (auto) 0.95, Nucleated RBC % 0, APTT 28.6, Sodium 139, Potassium 2.9 L, Chloride 103, Carbon Dioxide 22.8, Anion Gap 14, BUN 10, Creatinine 0.64 L, Estim Creat Clear Calc 48.75 L, Est GFR (MDRD) Non-Af 91, BUN/Creatinine Ratio 15.1, Glucose 171 H, Calcium 9.0, Troponin T High Sens 13, NT pro BNP II 1818 H Rhythm Strip Rhythm Strip: Sinus Rhythm Rate: 83 Ectopy: None Imaging Radiology Impression Chest X-Ray 12/29/24 06:41 IMPRESSION: Mild increased markings at the left lung base suggestive of linear atelectasis. Reading Location: [id number] Assessment & Plan Assessment/Plan (1) Accelerated hypertension: (2) Acute CHF: PLAN: Plan Acute hypoxia secondary to HFpEF - Currently requiring 2 L nasal cannula but not oxygen dependent baseline - Has no tobacco abuse history - Last echocardiogram was from 2020 and EF was normal at 65% - Check echocardiogram - Lasix 40 mg IV twice daily -BNP was elevated and chest x-ray looked mildly wet on admission -Will try to improve blood pressure control as this should help as well decreasing stiffness of the ventricle and improve filling and pumping function Hypertensive urgency - Marked blood pressure elevation on presentation - Will transition labetalol to carvedilol at 12 point milligrams p.o. twice daily - Continue home valsartan - Continue home baclofen - As needed hydralazine - May need to uptitrate or add additional medication Chest pain - Cycle cardiac enzymes - Check echocardiogram - Cardiology consultation - Patient with previous CABG in 2020 - Patient had negative stress test on 05/30/2024 Hypokalemia - Potassium is 2.9 on presentation next-was replaced in the emergency department - Repeat lab in a.m. and check a magnesium level Hyperglycemia - Patient does not have documented history of DM-2 - Blood sugar on presentation was 171 - Check hemoglobin A1c CAD/essential hypertension/hyperlipidemia - S/p four-vessel bypass 11/21/2020 - Continue antihypertensives as noted above - Continue home statin Allergies -Continue home certirzine GERD -Continue PPI Depression -continue Lexpro DVT prophylaxis -Subcu Lovenox 40 daily CODE STATUS -Full code is verified on admission Charges/Coding Visit Charges Inpatient E&M: 96079 Init Hosp L2
[2024-12-29] MEDS: Nitroglycerin Oint 1 INCH PACKET TD ×4 (09:01→23:16)
--- NOTE | 2024-12-29 09:25 | ECHOD_ITS ---
Reason For Study Reason For Study: CONGESTIVE HEART FAILURE Procedure This was a 2D Doppler, Color Flow transthoracic echocardiogram. Exam performed portable in patient room. Left Ventricle Mildly dilated left ventricle. The left ventricular ejection fraction is 45 %. Mild global left ventricular systolic dysfunction. The estimated ejection fraction is 40???45 %. Right Ventricle Mildly dilated right ventricle. Mild global right ventricular systolic dysfunction. Atria The left atrium is mildly enlarged. Normal right atrium. Mitral Valve There is mild mitral annular calcification. Tricuspid Valve Normal tricuspid valve. Aortic Valve Trisinus/trileaflet aortic valve. MMode/2D Measurements & Calculations LVIDd: 3.1 cm IVSd: 1.5 cm LVOT diam: 2.2 cm LVIDs: 2.4 cm LVPWd: 1.2 cm RVDd: 2.6 cm FS: 22.1 % LVOT area: 3.7 cm2 CO(Teich): 1.4 l/min LAV(MOD-bp): 38.9 ml LVAd ap4: 19.8 cm2 LAV(MOD-bp) Indexed: 25.0 ml/m2 LVLd ap4: 7.0 cm LAV(MOD-sp2): 45.1 ml EDV(MOD-sp4): 47.0 ml LAV(MOD-sp4): 30.2 ml EDV(sp4-el): 47.2 ml LVAs ap4: 13.5 cm2 LVLs ap4: 6.0 cm ESV(MOD-sp4): 26.4 ml ESV(sp4-el): 25.5 ml EF(MOD-sp4): 43.9 % EF(sp4-el): 46.0 % LVAd ap2: 17.8 cm2 CO(MOD-sp4): 1.7 l/min SV(MOD-sp2): 17.0 ml LVLd ap2: 7.0 cm SV(MOD-sp4): 20.6 ml SI(MOD-sp2): 11.0 ml/m2 EDV(MOD-sp2): 38.4 ml SI(MOD-sp4): 13.3 ml/m2 EDV(sp2-el): 38.7 ml LVAs ap2: 12.4 cm2 LVLs ap2: 6.0 cm ESV(MOD-sp2): 21.3 ml ESV(sp2-el): 21.8 ml EF(MOD-sp2): 44.4 % SV(sp4-el): 21.7 ml Ao sinus diam: 2.[address] Junction: 2.2 cm LA A4 area: 13.0 cm2 LA dimension(2D): 4.4 cm RA A4 area: 6.0 cm2 TAPSE: 0.74 cm Doppler Measurements & Calculations MV A max wu: 88.0 cm/sec Lat Peak E' Wu: 7.4 cm/sec Med Peak E' Wu: 4.0 cm/sec Ao V2 max: 139.1 cm/sec LV V1 max: 73.0 cm/sec CO(LVOT): 4.3 l/min Ao max P.7 mmHg LV V1 max P.1 mmHg SV(LVOT): 50.0 ml Ao V2 mean: 103.5 cm/sec LV V1 mean P.3 mmHg Ao mean P.7 mmHg LV V1 mean: 56.3 cm/sec Ao V2 VTI: 23.3 cm LV V1 VTI: 13.7 cm AV (velocity ratio): 0.59 PATRICIA(I,D): 2.1 cm2 PATRICIA(V,D): 1.9 cm2 PA V2 max: 69.4 cm/sec TR max wu: 250.3 cm/sec TR max P.2 mmHg ECHO/Echo Complete Interpretation Summary Moderate LV systolic dysfunction Estimated EF 40-45% Remarkable paradoxical interventricular and interatrial septal motion This is secondary to CABG No significant valvular abnormality Reduced LV systolic function as compared to previous echo. Ordering Physician: Varsha Sales Referring Physician: Chadd Walton Performed By: Regina Whalen RDCS
[2024-12-29 11:31] LABS: Troponin T High Sens 2 HR 10 ng/L (<=14)
[2024-12-29 13:30] LABS: Troponin T High Sens 4 HR 11 ng/L (<=14)
--- NOTE | 2024-12-29 15:41 | CON.PCM.CA_ITS ---
Assessment & Plan Assessment/Plan (1) Accelerated hypertension: (2) Atherosclerosis of [place] coronary artery of [place] heart without angina pectoris: (3) H/O coronary artery bypass surgery: (4) Essential hypertension: (5) HLD (hyperlipidemia): QUALIFIERS: Hyperlipidemia type: unspecified Qualified Code(s): E 78.5 - Hyperlipidemia, unspecified (6) Acute CHF: PLAN: 74-year-old female with a known cardiac history In November 08, 2020 patient underwent coronary artery bypass surgery at the [facility] With TAO to LAD, SVG to ramus, SVG to RPDA, SVG to RV branch and SVG to OM1. 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 Review all her current medication patient does have a history of hypertension history of encephalopathy in the past Hyperlipidemia Cardiac care plan; I reviewed all the current evaluation in the hospital including the EKG, the series of cardiac markers as well as echocardiogram. The EKG showed evidence of normal sinus with left ventricular hypertrophy with secondary repolarization ST-T changes noted as well in diffuse leads basically lead I aVL as well as the inferior and lateral leads. There is no ST elevation noted. The series of high sensitive troponins were within normal The echocardiogram is abnormal with reduced LV systolic function ejection fraction in the range of 40-45% consistent with moderate left ventricular systolic dysfunction. In addition she had significantly abnormal paradoxical interventricular and intra-atrial septum. No pericardial effusion and no significant valve abnormality on the echocardiogram. Based on the clinical presentation is started on nitro patch as well as Lasix IV 40 mg twice daily with monitoring of electrolytes and renal function. Patient started on Cozaar as an ARB, in addition we added Plavix to her current treatment and to continue on rosuvastatin for hyperlipidemia. And she has been on labetalol which can be change once she is stable and the blood pressure is controlled to carvedilol. In comparison to previous echocardiogram there is a drop in her EF with EF around 40-45% previous echocardiogram showed LV function is preserved. Will continue to monitor and follow-up clinically. Monica Conrad MD,FAC,[facility] load dispatcher HPI Consult Data Date of Consult: 12/29/24 HPI Narrative Reason for Consultation: CAD status post CABG/uncontrolled hypertension/acute systolic heart failure HPI Narrative: NEHEMIAS VARELA, is a 74 F who [facility] Medical History Chest pain Nondisplaced fracture of distal phalanx of left great toe Fracture of distal phalanx of left great toe Medication side effect Toxic metabolic encephalopathy Agitation Acidosis, lactic Closed nondisplaced fracture of left great toe Rhabdomyolysis Preop cardiovascular exam Dyspnea Acute respiratory failure with hypoxia COVID-19 Anemia Chronic pain Facial droop Postoperative atrial fibrillation (11/10/20) Essential hypertension Atherosclerosis of [place] coronary artery of [place] heart without angina pectoris Pinched vertebral nerve Scoliosis GERD (gastroesophageal reflux disease) HLD (hyperlipidemia) History of back pain Home Medications Medication Instructions Recorded Last Taken Type rosuvastatin 20 mg tablet 20 mg PO QHS cholesterol 12/28/24 History labetalol 200 mg tablet 200 mg PO BID Check with dorys bruna 06/12/21 12/28/24 History doctor pantoprazole 40 mg tablet,delayed 40 mg PO DAILY Check with primary 06/12/21 12/28/24 History release (Protonix) doctor valsartan 320 mg tablet 320 mg PO DAILY Check with p akilahary 06/12/21 12/28/24 History doctor tramadol 50 mg tablet 50 mg PO Q8H pain 07/17/23 0 12/28/24 History gabapentin 300 mg capsule 300 mg PO DAILY Pain 4 12/28/24 History aspirin 81 mg tablet,delayed 81 mg PO BREAKFAST #0 tab s 05/31/24 12/28/24 Rx release baclofen 10 mg tablet 10 mg PO TID Anticoag 12/28/24 History clonidine HCl 0.1 mg tablet 0.1 mg PO BID B/P 12/29/24 12/28/24 History Allergy/AdvReac Type Severity Reaction Status Date / Time levofloxacin Allergy Severe leg pain Verified 12/29/24 06:36 amiodarone Allergy mental Verified 12/29/24 06:36 confusion Penicillins Allergy Unknown Verified 12/29/24 06:36 Sulfa (Sulfonamide Allergy Rash Verified 12/29/24 06:36 Antibiotics) ciprofloxacin AdvReac Rash Verified 12/29/24 06:36 lorazepam (From Ativan) AdvReac "I went Verified 12/29/24 06:36 crazy" Family History Mother Alcoholism Father Hypertension Brother Diabetes Sister Diabetes Hypertension Sister No problems noted. Son Hypertension Other Kidney disease Surgical History History of left heart catheterization (11/03/20) History of appendectomy H/O coronary artery bypass surgery (11/08/20) History of cholecystectomy Social History household members: spouse pets and animals: Yes (cats) Smoking Status: Never smoker alcohol intake: never substance use type: does not use caffeine: Yes Type: carbonated beverages Physical Exam Cardio Cardio Narrative: Patient seen and evaluated at bedside along with the nursing staff Short of breath at rest Review of the cardiac catheterization technologist showed normal sinus Cardiac exam S1-S2 is regular Chest exam diminished air entry bilateral with bilateral inspiratory rales Mild lower extremity edema involving mainly the right lower extremity +1. Objective Data Vital Signs: Vital Signs Temp Pulse Resp BP Pulse Ox O2 Del Method O2 Flow Rate 98.7 F 76 16 186/87 H 95 Nasal Cannula 2 12/29/24 08:59 12/29/24 08:59 12/29/24 08:59 12/29/24 08:59 12/29/24 13:22 12/29/24 13:22 12/29/24 13:22 Oxygen Flow Rate (L/min) 2 Oxygen Delivery Method Nasal Cannula Weight: 132 lb 15.02 oz Body Mass Index (BMI) 26.8 Intake & Output: Intake and Output for Last 24 Hours 12/27/24 12/28/24 12/29/24 23:59 23:59 23:59 Intake Total 552.5 / 552.5 Balance 552.5 / 552.5 Lab / Micro Data 12/29/24 06:50 12/29/24 06:50 Labs: Laboratory Results - last 24 hr 12/29/24 06:50: WBC 5.7, RBC 4.38, Hgb 13.2, Hct 40.2, MCV 91.8, MCH 30.1, MCHC 32.8, RDW Std Deviation 41.8, RDW Coeff of [place] 12.3, Plt Count 168, MPV 11.6, Immature Gran % (Auto) 0.400, Neut % (Auto) 66.9, Lymph % (Auto) 16.8 L, [place] % (Auto) 7.6, Eos % (Auto) 7.8 H, Baso % (Auto) 0.5, Absolute Neuts (auto) 3.8, Absolute Lymphs (auto) 0.95, Nucleated RBC % 0, APTT 28.6, Sodium 139, Potassium 2.9 L, Chloride 103, Carbon Dioxide 22.8, Anion Gap 14, BUN 10, Creatinine 0.64 L, Estim Creat Clear Calc 48.75 L, Est GFR (MDRD) Non-Af 91, BUN/Creatinine Ratio 15.1, Glucose 171 H, Hemoglobin A1c 6.6 H, Calcium 9.0, Troponin T High Sens 13, NT pro BNP II 1818 H 12/29/24 10:25: Troponin T Hi Sens 2 Hr 10 12/29/24 12:25: Troponin T Hi Sens 4Hr 11 Rhythm Strip Rhythm Strip: Sinus Rhythm Rate: 83 Ectopy: None Cardiology Labs/Tests 12/29/24 06:50: WBC 5.7, RBC 4.38, Hgb 13.2, Hct 40.2, MCV 91.8, MCH 30.1, MCHC 32.8, Plt Count 168, MPV 11.6, Immature Gran % (Auto) 0.400, Neut % (Auto) 66.9, Lymph % (Auto) 16.8 L, [place] % (Auto) 7.6, Eos % (Auto) 7.8 H, Baso % (Auto) 0.5, Absolute Neuts (auto) 3.8, Nucleated RBC % 0, APTT 28.6, Sodium 139, Potassium 2.9 L, Chloride 103, Carbon Dioxide 22.8, Anion Gap 14, BUN 10, Creatinine 0.64 L, Est GFR (MDRD) Non-Af 91, BUN/Creatinine Ratio 15.1, Glucose 171 H, H emoglobin A1c 6.6 H, Calcium 9.0 Rhythm: EKG: ECHO: Stress Test: Cardiac Cath: PCI: CT Surgery: Holter monitor: EPS: PPM: CXR: Chest CT Scan: Radiography Diagnostic Testing: Radiology Impression Chest X-Ray 12/29/24 06:41 IMPRESSION: Mild increased markings at the left lung base suggestive of linear atelectasis. Reading Location: [id number] Echocardiogram 12/29/24 09:25 Interpretation Summary Moderate LV systolic dysfunction Estimated EF 40-45% Remarkable paradoxical interventricular and interatrial septal motion This is secondary to CABG No significant valvular abnormality Reduced LV systolic function as compared to previous echo. Ordering Physician: Varsha Sales Referring Physician: Chadd Walton Performed By: Regina Whalen RDCS Risk Score for UA/STEMI Assesmment (YES = 1) Risk Stratification Applicable: No
[2024-12-29] MEDS: 0.9% Saline Lock 10 ML Syringe IV (18:11)
[2024-12-29] MEDS: MELATONIN 3 MG TABLET PO (21:53)
[2024-12-30] VITALS (8 sets, daily range): BP systolic 80–156; BP diastolic 53–80; PULSE 92–115; RESP 16–18; TEMP 36.1–36.9; O2SAT 94–96; BMI 26.3; BMI 27.4
[2024-12-30] MEDS: Nitroglycerin Oint 1 INCH PACKET TD (05:29)
[2024-12-30 07:27] LABS: Hematocrit 45.0 % (37-47); Hemoglobin 14.7 g/dL (12.0-15.0); Mean Corp Hgb Conc 32.7 g/dL (32-36); Mean Corpuscular Volume 91.8 fL (81-99); Mean Platelet Vol. 11.9 fl (6.2-12.0); Platelet Count 229 K/mm3 (150-450); RBC Distribution Width CV 12.8 % (11.6-14.6); RBC Distribution Width SD 42.7 fl (35.1-43.9); Red Blood Count 4.90 M/mm3 (4.2-5.4); White Blood Count 7.2 K/mm3 (4.4-11.0)
--- NOTE | 2024-12-30 07:45 | PN.HOSP_ITS ---
Reason for Visit Chief Complaint: Chest discomfort Subjective Subjective No current chest discomfort or any pain through the night. Blood pressure has now shifted and is borderline low. She was given her Coreg this morning but other medications were held. I did discuss with her the need to keep her today to titrate her medications so she does not fluctuate between highs and lows and we have her fairly well set with the regimen at the time of discharge. She voiced understanding. She denies any current shortness of breath and is now on room air. Objective Data Objective Data Vital Signs: Vital Signs Temp Pulse Resp BP Pulse Ox O2 Del Method O2 Flow Rate 97.0 F L 100 18 156/80 H 96 Nasal Cannula 2 12/30/24 03:52 12/30/24 03:52 12/30/24 03:52 12/30/24 03:52 12/30/24 03:52 12/30/24 03:52 12/30/24 03:52 Oxygen Flow Rate (L/min) 2 Oxygen Delivery Method Nasal Cannula Weight: 59.1 kg Body Mass Index (BMI) 26.3 Intake & Output: Intake and Output for Last 24 Hours 12/28/24 12/29/24 12/30/24 23:59 23:59 23:59 Intake Total 552.5 / 552.5 Balance 552.5 / 552.5 Lab / Micro Data 12/30/24 05:50 12/30/24 05:50 Labs: Laboratory Results - last 24 hr 12/29/24 06:50: APTT 28.6, Sodium 139, Potassium 2.9 L, Chloride 103, Carbon Dioxide 22.8, Anion Gap 14, BUN 10, Creatinine 0.64 L, Estim Creat Clear Calc 48.75 L, Est GFR (MDRD) Non-Af 91, BUN/Creatinine Ratio 15.1, Glucose 171 H, H emoglobin A1c 6.6 H, Calcium 9.0, Troponin T High Sens 13 12/29/24 10:25: Troponin T Hi Sens 2 Hr 10 12/29/24 12:25: Troponin T Hi Sens 4Hr 11 12/30/24 05:50: WBC 7.2, RBC 4.90, Hgb 14.7, Hct 45.0, MCV 91.8, MCH 30.0, MCHC 32.7, RDW Std Deviation 42.7, RDW Coeff of [place] 12.8, Plt Count 229, MPV 11.9 Radiography Diagnostic Testing: Radiology Impression Echocardiogram 12/29/24 09:25 Interpretation Summary Moderate LV systolic dysfunction Estimated EF 40-45% Remarkable paradoxical interventricular and interatrial septal motion This is secondary to CABG No significant valvular abnormality Reduced LV systolic function as compared to previous echo. Ordering Physician: Varsha Sales Referring Physician: Chadd Walton Performed By: Regina Whalen RDCS Rhythm Strip Rhythm Strip: Sinus Rhythm Rate: 83 Ectopy: None Physical Exam Const alert, oriented x3, no apparent distress, average body habitus and well nourished Constitutional Narrative: Older, white female, sitting up in a chair at the bedside, appears comfortable, nontoxic, interacts appropriately General Appearance: cooperative HEENT normocephalic, head/scalp atraumatic, hearing grossly normal bilaterally and moist oral mucous membranes HEENT Narrative: Dentures in place, Mallampati 2, no thrush Eyes conjunctivae normal Eyes Narrative: No scleral icterus Neck supple Neck Narrative: Trachea midline, no JVD Resp normal respiratory effort, no retractions, no use of accessory muscles and clear to auscultation bilaterally Auscultation: Negative for crackles, rhonchi or wheezes Cardio regular rate, regular rhythm, S1 normal heart sound, S2 normal heart sound, no murmurs, no rub, no gallops and no clicks GI normal to inspection, nondistended, normoactive bowel sounds, soft to palpation and non-tender Extremity no clubbing, cyanosis or edema Extremity Narrative: 2+ pedal and radial pulses Skin Skin Narrative: No lesions or significant wounds, skin does have changes consistent with significant sun exposure have up Neuro moves all extremities Speech: speech normal Psych affect normal Psych Narrative: Very pleasant, interacts appropriately Assessment & Plan Assessment/Plan (1) Accelerated hypertension: (2) Acute CHF: PLAN: Plan Acute hypoxia secondary to acute HFrEF--> newly depressed EF - Resolved-now on room air - Echocardiogram showed slightly reduced ejection fraction from compared to previous echo with an EF of 40 to 45% -Previous echo showed 60 to 65% EF - Discontinue IV Lasix and start Lasix 20 mg p.o. daily - Patient is already on ARB so we will continue this - Start Jardiance 10 mg daily this will help with blood sugars and heart failure - Patient is on beta-ariane with Coreg we will try to treat accordingly - Will add low-dose nitrate to help with chest pain symptoms - Will ensure outpatient cardiology follow-up after discharge with probable discharge in the next 24 hours as long as we can get blood pressure better controlled Troponin elevation - Very mild - Patient with CABG 4 years ago and negative stress test in May - Likely related to hypertension on presentation as well as acute HFrEF - Echo with no specific wall motion abnormality Hypertensive urgency - Marked blood pressure elevation on presentation - Continue Coreg - Continue home valsartan - Start Imdur 30 mg daily - Discontinue home clonidine - Continue titration for today Chest pain - Cardiac enzymes were negative - Echocardiogram with reduced EF however no wall motion abnormality and depression is global - Cardiology following and for now we will treat medically with outpatient follow-up - Patient with previous CABG in 2020 - Patient had negative stress test on 05/30/2024 Hypokalemia - Patient remains hypokalemic - Will give 40 mEq x 2 doses today and recheck in a.m. - Magnesium levels within normal limits DM-2 - A1c is 6.6 consistent with a diagnosis of diabetes type 2 - Technically could try diet control however Will start low-dose Jardiance which will also be beneficial with her heart failure CAD/essential hypertension/hyperlipidemia - S/p four-vessel bypass 11/21/2020 - Continue antihypertensives as noted above - Continue home statin Allergies -Continue home certirzine GERD -Continue PPI Depression -continue Lexpro DVT prophylaxis -Subcu Lovenox 40 daily CODE STATUS -Full code Charges/Coding Visit Charges Inpatient E&M: 04897 Subs Hosp L3
[2024-12-30 08:05] LABS: Magnesium 1.9 mg/dL (1.5-2.2); Troponin T High Sensitivity 18 ng/L (<=14)
[2024-12-30 08:31] LABS: Cholesterol 159 mg/dL (<=200); Low Density Lipoprotein Calc. 58 mg/dL; Triglycerides 137 mg/dL; Very Low Density Lipoprotein 27 mg/dL (5-40); cholesterol:hdl ratio screen 2.15
[2024-12-30 08:34] LABS: AST(SGOT) 20 U/L (<=31); Alanine Aminotransfer ALT/SGPT 34 U/L (<=34); Albumin, Serum 4.2 g/dL (3.4-4.8); Alkaline Phosphatase 229 U/L (35-104); Anion Gap 15 (5-15); BUN 19 mg/dL (4-19); BUN/Creat Ratio 19.4 RATIO (10-20); Calcium,Total 9.3 mg/dL (7.6-11.0); Carbon Dioxide 27.1 mmol/L (21.0-32.0); Chloride 99 mmol/L (98-108); Estimated Creatinine Clearance 38.49 ml/min (50-250); Globulin 2.4 g/dL (2.2-4.2); Glucose 169 mg/dL (70-99); Potassium 2.7 mmol/L (3.3-5.1)
[2024-12-30] MEDS: Aspirin E.C. 81 MG Tablet PO (09:05)
[2024-12-30] MEDS: Potassium Chloride Oral Tablet 20 MEQ 40 MEQ PO ×2 (09:06→16:38)
[2024-12-30 09:29] LABS: Troponin T High Sens 2 HR 19 ng/L (<=14)
--- NOTE | 2024-12-30 10:00 | CASEMGMT ---
RN CM ASSESSMENT RN CM to room to meet with patient for initial transition planning/care coordination assessment. ANG ZHANG introduced self and role at [facility]. Pt voices understanding and consents to assessment at this time. Pt sitting up in chair in no distress at this time. Pt is A/O at this time and answers all questions appropriately. Care providers, pharmacy, and demographics verified/updated at this time. Strata: 2 PCP: Dr Walton Specialists: Dr Costello/cardiology. Preferred [facility]acy: [facility]. Insurance: [employer] Prescription Benefit: yes LNOK: , Jeremy. [id number], [place] Living Arrangements: Lives w/ in one-story home w/2 steps to enter w/handrail x 1. Independent w/ADL's and IADL's & manages her own medications. Transportation: Pt and both drive. DME: States has the following DME: BP monitor, pulse ox. Has access to FWW and cane, but does not use either. No home O2. Discussed possible need of O2 @ dc. Questions answered. Pt chose [facility] if O2 needed. Pt states no need for further DME at this time. HHC/SNF: Hx HHC a few yrs ago, but does not remember name. No hx of SNF. Pt has done OP therapy @ [facility] in the past. Pt has Silver Sneakers but has not been going recently. 6 cl: 24, no therapy indicated. Discussed discharge planning. Pt wishes to return home and states has no concerns with going home at time of discharge. CM to follow for home oxygen needs and any further discharge planning/needs. Pt voices no further concerns/needs at this time. Advised pt to ask for CM if any further questions/concerns/needs arise. Voices understanding. CHF is new diagnosis this admission. Nicolle FRY, made aware of education needed. PLAN: Home Follow for possible home O2 @ dc. Nursing to provide CHF education. Chris TRIMBLE RN, CM
[2024-12-30 11:44] LABS: Troponin T High Sens 4 HR 22 ng/L (<=14)
[2024-12-30] MEDS: Senna/Docusate Sodium 1 Tablet 2 TABLET PO (16:38)
[2024-12-30] MEDS: MELATONIN 3 MG TABLET PO (23:03)
[2024-12-31 04:00] VITALS: BP 115/104; PULSE 92; RESP 18; TEMP 36.3; O2SAT 93
[2024-12-31 05:56] LABS: Hematocrit 38.5 % (37-47); Hemoglobin 12.9 g/dL (12.0-15.0); Immature Granulocytes Count 0.020 X10^3/uL (0.0-0.0); Mean Corp Hgb Conc 33.5 g/dL (32-36); Mean Corpuscular Volume 90.8 fL (81-99); Mean Platelet Vol. 12.2 fl (6.2-12.0); NRBC Flagged by Analyzer 0 % (0-5); Platelet Count 188 K/mm3 (150-450); RBC Distribution Width CV 13.0 % (11.6-14.6); RBC Distribution Width SD 42.8 fl (35.1-43.9); Red Blood Count 4.24 M/mm3 (4.2-5.4); White Blood Count 5.4 K/mm3 (4.4-11.0)
[2024-12-31 06:31] LABS: Magnesium 2.1 mg/dL (1.5-2.2)
[2024-12-31 06:38] LABS: Anion Gap 13 (5-15); BUN 34 mg/dL (4-19); BUN/Creat Ratio 29.6 RATIO (10-20); Calcium,Total 9.1 mg/dL (7.6-11.0); Carbon Dioxide 20.8 mmol/L (21.0-32.0); Chloride 103 mmol/L (98-108); Estimated Creatinine Clearance 33.18 ml/min (50-250); Glucose 162 mg/dL (70-99); Potassium 3.7 mmol/L (3.3-5.1)
[2024-12-31 08:03] VITALS: O2SAT 93; O2SAT 95
[2024-12-31] MEDS: Aspirin E.C. 81 MG Tablet PO (08:37)
[2024-12-31 08:41] VITALS: BP 122/88
[2024-12-31 10:00] VITALS: BP 118/76; PULSE 101; RESP 16; TEMP 36.8; O2SAT 95
--- NOTE | 2024-12-31 11:01 | PCM.DC.SUM ---
Providers Date of Admission: 12/29/24 Date of Discharge: 12/31/24 Primary Care Physician: Dr. Chadd Walton MD Consultations 12/29/24 09:25 Consult: Cardiology Routine Consulting Provider: Monica Conrad Reason for Consult: Chest Pain EMERGENT Consult: No MD Notified: Yes Date Notified: 12/29/24 Time Notified: 08:26 Method of Notification: ED Physician Initiated Reason For Visit: CHEST PAIN/DECOMENSATED HFrEF Diagnosis Discharge Diagnosis (1) Accelerated hypertension: Status: Acute Code(s): I10 - Essential (primary) hypertension (2) Acute CHF: Status: Acute Code(s): I50.9 - Heart failure, unspecified Medications at Discharge Home Medications rosuvastatin 20 mg tablet 20 mg PO QHS cholesterol 12/15/20 pantoprazole 40 mg tablet,delayed release (Protonix) 40 mg PO DAILY reflux 06/12/21 valsartan 320 mg tablet 320 mg PO DAILY blood pressure 06/12/21 tramadol 50 mg tablet 50 mg PO Q8H pain 07/17/23 gabapentin 300 mg capsule 300 mg PO DAILY Pain 01/20/24 aspirin 81 mg tablet,delayed release 81 mg PO BREAKFAST heart health #0 tabs 05/31/24 baclofen 10 mg tablet 10 mg PO TID Anticoag 12/29/24 carvedilol 6.25 mg tablet 6.25 mg PO BIDCM #60 tabs 12/31/24 clopidogrel 75 mg tablet 75 mg PO DAILY #30 tabs 12/31/24 empagliflozin 10 mg tablet (Jardiance) 10 mg PO DAILY #30 tabs 12/31/24 furosemide 20 mg tablet 20 mg PO DAILY #30 tabs 12/31/24 isosorbide mononitrate 30 mg tablet,extended release 24 hr 30 mg PO DAILY #30 tabs 12/31/24 Hospital Course Operations None Procedures 2-D Echocardiogram, EKG and - (Chest x-ray) Summary of Care Provided Minutes Spent on Discharge: 38 Hospital Course: Mrs. Blue is a 74 F who presented to the emergency department [facility] on 12/29/2024 with a chief complaint of hypertension. Patient wanted evaluated for her blood pressure as well as high this morning when her took it at 199 systolic. She had been having chest tightness on and off and then overnight she had some orthopnea so that is why she wanted her blood pressure checked. She was not short of breath at the time of presentation. She stated she did have some mild chest discomfort that felt like tightness that was nonradiating and nonpleuritic but she stated it was not horrible. She had a couple episodes of emesis with the last 1 being on the morning of presentation and she states she has been sweating on and off but does not sound like she has had diaphoresis associated with her chest pain or shortness of breath. She had a CABG in 2020. Patient stated she had not missed any of her blood pressure medications Vital signs on presentation showed temperature of 97.9, heart rate 89, blood pressure was 176 over send 97, respiratory rate 16 pulse ox was 84% on room air and improved to 96% on 2 L nasal cannula. CBC was unremarkable with a normal white count. Differential was fairly unremarkable other than some eosinophilia. Coags were normal. Chemistry panel showed marked hypokalemia with potassium of 2.9 but was otherwise unremarkable. Serum blood sugar was elevated 171 and A1c was obtained and found to be 6.6. Initial troponin was 13 and BNP was 1818. Chest x-ray was consistent with some mild volume overload. EKG had no ST-T wave changes concerning for acute ischemia. Given her previous coronary history, hypoxemia, and chest discomfort the ED physician contacted the overcoiler and they recommended admission for further observation, blood pressure control and potential cardiac catheterization depending on enzymes and overall symptoms. She was admitted to the medical floor and some alterations were made in her blood pressure medications. We stopped her labetalol and transitioned her to carvedilol. We left her on her LAMAR inhibitor. We started a nitrate 30 mg of Imdur daily. With this combination her blood pressure was much improved. At discharge she was on carvedilol 6.25 mg p.o. twice daily, isosorbide mononitrate 30 mg daily, the same dose of her valsartan which was 320 mg daily and Lasix 20 mg daily. We did obtain an echocardiogram which showed an EF of 45% having global LV dysfunction which was new compared to previous. Given her newly depressed EF. We did ensure she was on appropriate goal-directed therapy at the time of discharge. We did hold off on Aldactone because her pressures were intermittently borderline. We felt that if her blood pressures tolerated her medication changes and she was evaluated in the outpatient setting and still stable they could consider Aldactone initiation at that time. We also started her on Jardiance 10 mg daily. Her hemoglobin A1c was 6.6. We did discuss this with her and she is going to cut back on sugar containing pop which she states she drinks a significant amount of. Ultimately, I did not start her on the Jardiance for her diabetes but for her heart failure. It was quite expensive for her so she is going to try months and discuss as an outpatient if there are any programs to get into or alternatives. We could try Farxiga but I do not know what her coverage would look like for that either. We are able to make her cardiology appointment to be seen after discharge with Liss Rossi on 01/11/2025 for posthospital follow-up and reassessment. She will likely need a BMP. We also started Lasix given her depressed EF at low-dose as she was not markedly volume overloaded. She should also follow-up with her primary care physician in the next 1 to 2 weeks after discharge. She was able to be discharged home in stable condition on 12/31/2024 with prescriptions for her new medication sent to local pharmacy prior to discharge. Discharge diagnoses: Acute hypoxia secondary to acute HFrEF Acute HFrEF-newly diagnosed Troponin elevation secondary to demand ischemia from decompensated heart failure and elevated blood pressure Hypertensive urgency Chest pain Hypokalemia DM-2 CAD Essential hypertension Hyperlipidemia Allergies GERD Depression Physical Exam Const alert, oriented x3, no apparent distress, average body habitus, no limitations and well nourished; Negative for healthy appearing Constitutional Narrative: Older, white female, sitting up in bed, appears comfortable, nontoxic, interacts appropriately, appears well today General Appearance: cooperative, comfortable, well kempt and well developed HEENT normocephalic, head/scalp atraumatic, hearing grossly normal bilaterally and moist oral mucous membranes HEENT Narrative: Dentures in place, Mallampati 2, no thrush Eyes conjunctivae normal Eyes Narrative: No scleral icterus Neck supple Neck Narrative: Trachea midline, no JVD Resp normal respiratory effort, no retractions, no use of accessory muscles and clear to auscultation bilaterally Resp Narrative: Few crackles at bases bilaterally Auscultation: Negative for crackles, rhonchi or wheezes Cardio regular rate, regular rhythm, S1 normal heart sound, S2 normal heart sound, no murmurs, no rub, no gallops and no clicks GI normal to inspection, nondistended, normoactive bowel sounds, soft to palpation and non-tender Extremity no clubbing, cyanosis or edema Extremity Narrative: 2+ pedal and radial pulses Skin Skin Narrative: No lesions or significant wounds, skin does have changes consistent with significant sun exposure have up Neuro oriented x3 and moves all extremities Speech: speech normal Psych affect normal Psych Narrative: Very pleasant, interacts appropriately Weight / BMI Weight Weight: 59.1 kg Body Mass Index (BMI) 27.4 ABG / Lab / Microbiology Data 12/31/24 04:57 12/31/24 04:57 Laboratory: Laboratory Results - last 24 hr 12/31/24 04:57: WBC 5.4, RBC 4.24, Hgb 12.9, Hct 38.5, MCV 90.8, MCH 30.4, MCHC 33.5, RDW Std Deviation 42.8, RDW Coeff of [place] 13.0, Plt Count 188, MPV 12.2 H, Immature Gran % (Auto) 0.400, Neut % (Auto) 52.7, Lymph % (Auto) 28.7, [place] % (Auto) 11.1 H, Eos % (Auto) 6.9 H, Baso % (Auto) 0.2, Absolute Neuts (auto) 2.9, Absolute Lymphs (auto) 1.55, Nucleated RBC % 0, Sodium 137, Potassium 3.7, Chloride 103, Carbon Dioxide 20.8 L, Anion Gap 13, BUN 34 H, Creatinine 1.16, Estim Creat Clear Calc 33.18 L, Est GFR (MDRD) Non-Af 49 L, BUN/Creatinine Ratio 29.6 H, Glucose 162 H, Calcium 9.1, Phosphorus 3.7, Magnesium 2.1 D/C Instructions Discharge Activity: Return to Normal Activity DC O2, CPAP, BIPAP Needs Home O2 Discharge instructions: No Meaningful Use Info Meaningful Use Meaningful Use Diagnoses (Choose all that apply): CHF CHF LAMAR/ARB ordered at discharge?: Yes Documented LVEF (%): 45 Discharge Plan Admission Admit Date/Time: 12/29/24 08:22 Primary Reason for Your Visit: Chest Pain/Elevated BP Attending Provider: Varsha Sales Primary Care Provider: Chadd Walton Consulting Providers: Monica Conrad Instructions Additional Instructions / Restrictions: 1. You were found to be diabetic with a hemoglobin A1c of 6.6. We did start you on a medication for diabetes however I think if you cut back on your pop intake you will only be prediabetic however the medication will assist with your heart failure as well and should continue. 2. Please see medication changes and put all medications in another place so you do not accidentally double up on your blood pressure medication. Discharge Orders/Prescriptions Prescriptions: New carvedilol 6.25 mg Tablet 6.25 mg PO BIDCM Qty: 60 0RF clopidogrel 75 mg Tablet 75 mg PO DAILY Qty: 30 2RF Jardiance 10 mg Tablet 10 mg PO DAILY Qty: 30 2RF furosemide 20 mg Tablet 20 mg PO DAILY Qty: 30 2RF isosorbide mononitrate 30 mg Tablet Extended Release 24 Hr 30 mg PO DAILY Qty: 30 2RF Continued rosuvastatin 20 mg Tablet 20 mg PO QHS valsartan 320 mg tablet 320 mg PO DAILY Patient Comments: TAKE 1 TABLET BY MOUTH EVERY DAY pantoprazole [Protonix] 40 mg tablet,delayed release (DR/EC) 40 mg PO DAILY tramadol 50 mg tablet 50 mg PO Q8H Patient Comments: today was last dose for pt aspirin 81 mg Tablet,Delayed Release (Dr/Ec) 81 mg PO BREAKFAST Qty: 0 0RF gabapentin 300 mg capsule 300 mg PO DAILY baclofen 10 mg tablet 10 mg PO TID Discontinued labetalol 200 mg tablet 200 mg PO BID clonidine HCl 0.1 mg tablet 0.1 mg PO BID Referrals / Follow Up: Chadd Walton MD [Primary Care Provider] - Within 2 Weeks Liss Rossi PA [Med Staff - [facility]] - 01/11/25 1:00 pm Disposition Disposition (needs filled in before D/C Order can be placed): Home, Self Care Charges/Coding Visit Charges Inpatient E&M: 44635 Disch Hosp >30min
--- NOTE | 2024-12-31 12:09 | CASEMGMT ---
Patient has order for discharge. Patient is discharging on Jardiance. ANG ZHANG called [facility], copay is $346.14 with her insurance. ANG CM in to discuss needs at discharge. RN CM updated regarding copay for Jardiance, patient states she will fill for one month but would not be able to afford. RN CM encouraged patient to discuss with PCP or raw scales operator to explore alternative options, patient voiced understanding. Patient had no further questions or concerns.
== END 2024-12-31 12:57 | disposition home or self-care (01) ==
LOC: ED 08:10 → PCU 09:00
PROVIDERS: Internal Medicine Interventional Cardiology; Admitting Provider Internal Medicine; Emergency Provider Emergency Medicine; PCP Family Medicine; Visit Provider Internal Medicine
DX: I11.0 Hypertensive heart disease with heart failure (principal); I50.21 Acute systolic (congestive) heart failure; I24.89 Other forms of acute ischemic heart disease; E11.9 Type 2 diabetes mellitus without complications; Z95.1 Presence of aortocoronary bypass graft; I16.0 Hypertensive urgency; F32.A Depression, unspecified; E78.5 Hyperlipidemia, unspecified; I25.10 Atherosclerotic heart disease of native coronary artery without angina pectoris; K21.9 Gastro-esophageal reflux disease without esophagitis; E87.6 Hypokalemia; J30.2 Other seasonal allergic rhinitis; R09.02 Hypoxemia; R07.89 Other chest pain; G89.29 Other chronic pain; Z79.82 Long term (current) use of aspirin; Z79.899 Other long term (current) drug therapy
CPT/HCPCS: 36415; 71045; 80048; 80053; 80061; 83036; 83735; 83880; 84100; 84484; 85025; 85027; 85730; 93005; 93306; 94668; 96361; 96372; 96374; 96375; 96376; 99221; 99285; A4216; G0378; J1938

== ENCOUNTER → 2025-01-13 | Outpatient (CLI) | payer MEDICARE, SELFPAY ==
[2025-01-13 18:10] LABS: Creatinine, Urine (random) 9.74 mg/dL (28.00-217.00); Microalbumin,Random Urine < 12.0 mg/L (<20 mg/L)
[2025-01-13 18:28] LABS: Anion Gap 14 (5-15); BUN 12 mg/dL (4-19); BUN/Creat Ratio 14.3 RATIO (10-20); Calcium,Total 8.8 mg/dL (7.6-11.0); Carbon Dioxide 22.7 mmol/L (21.0-32.0); Chloride 104 mmol/L (98-108); Glucose 151 mg/dL (70-99); Potassium 3.2 mmol/L (3.3-5.1)
== END | disposition home or self-care (01) ==
LOC: MFPLAB 15:28
PROVIDERS: PCP Family Medicine; Visit Provider Family Medicine
DX: I10 Essential (primary) hypertension (principal)
CPT/HCPCS: 36415; 80048; 82043; 82570

== ENCOUNTER → 2025-03-24 | Outpatient (CLI) | payer MEDICARE, SELFPAY ==
[2025-03-24 10:43] LABS: AST(SGOT) 18 U/L (<=31); Alanine Aminotransfer ALT/SGPT 12 U/L (<=34); Albumin, Serum 3.9 g/dL (3.4-4.8); Alkaline Phosphatase 226 U/L (35-104); Anion Gap 12 (5-15); BUN 6 mg/dL (4-19); BUN/Creat Ratio 9.9 RATIO (10-20); Calcium,Total 9.0 mg/dL (7.6-11.0); Carbon Dioxide 23.0 mmol/L (21.0-32.0); Chloride 109 mmol/L (98-108); Cholesterol 147 mg/dL (<=200); Globulin 2.5 g/dL (2.2-4.2); Glucose 147 mg/dL (70-99); Low Density Lipoprotein Calc. 57 mg/dL; Potassium 2.8 mmol/L (3.3-5.1); Triglycerides 252 mg/dL; Very Low Density Lipoprotein 50 mg/dL (5-40); cholesterol:hdl ratio screen 2.95
== END | disposition home or self-care (01) ==
LOC: MFPLAB 08:36
PROVIDERS: PCP Family Medicine; Visit Provider Family Medicine
DX: E11.9 Type 2 diabetes mellitus without complications (principal)
CPT/HCPCS: 36415; 80053; 80061; 83036

== ENCOUNTER → 2025-04-07 | Outpatient (CLI) | payer MEDICARE, SELFPAY ==
[2025-04-07 17:47] LABS: Anion Gap 13 (5-15); BUN 7 mg/dL (4-19); BUN/Creat Ratio 10.2 RATIO (10-20); Calcium,Total 9.0 mg/dL (7.6-11.0); Carbon Dioxide 23.6 mmol/L (21.0-32.0); Chloride 107 mmol/L (98-108); Glucose 197 mg/dL (70-99); Magnesium 2.0 mg/dL (1.5-2.2); Potassium 3.4 mmol/L (3.3-5.1)
== END | disposition home or self-care (01) ==
LOC: MFPLAB 15:28
PROVIDERS: PCP Family Medicine; Visit Provider Family Medicine
DX: R25.2 Cramp and spasm (principal)
CPT/HCPCS: 36415; 80048; 83735